=== PATIENT | female | born 1955 | race Caucasian/White ===

== ENCOUNTER 2022-11-11 10:13 | Outpatient (OUT) | payer OTHER, SELFPAY ==
--- NOTE | 2022-11-11 10:16 | FL_ITS ---
[address] [address] Patient Name: BEHZAD ENRIQUEZ MRN: [id number] date: 1955 Sex: F Assigned Patient Location: [place] Current Patient Location: [place] Accession/Order Number: [id number] Exam Date: 11/11/2022 10:25 Report Date: 11/11/2022 13:41 At the request of: MAKEDA OSEI Procedure: FL small bowel follow through EXAMINATION: FL upper GI w air, FL small bowel follow through, FL cineradiography HISTORY: Small bowel obstruction K56.609 , epigastric pain, left upper quadrant pain, lower abdominal cramping, history of abdominal adhesions COMPARISON: No relevant comparison available. TECHNIQUE: Upper GI and small bowel series was performed in the usual manner. Standard level fluoroscopic mode of operation utilized. FINDINGS: ESOPHAGUS: Mild gastroesophageal reflux. Mild narrowing of the gastroesophageal valve, likely secondary to recent hernia repair. No visible obstruction, dilatation, or hernia. STOMACH: No obstruction, mass, or ulceration. Normal motility. DUODENUM: No ulceration or diverticulum. JEJUNUM: Normal motility. No obstruction or visible lesion. ILEUM: Normal motility. No obstruction or visible lesion. OTHER: Negative. IMPRESSION: 1. Mild gastroesophageal reflux without esophageal stricture or mucosal irregularity. 2. Prior hernia repair suspected to be a gastric wrap, which also would account for mild narrowing at the gastroesophageal junction. 3. Unremarkable duodenum, jejunum, and ileum. Electronically authenticated by: DANIEL FINNEY Date: 11/11/2022 13:41
--- NOTE | 2022-11-11 10:18 | FL_ITS ---
[address] [address] Patient Name: BEHZAD ENRIQUEZ MRN: [id number] date: 1955 Sex: F Assigned Patient Location: [place] Current Patient Location: [place] Accession/Order Number: [id number] Exam Date: 11/11/2022 10:25 Report Date: 11/11/2022 13:41 At the request of: MAKEDA OSEI Procedure: FL upper GI w air EXAMINATION: FL upper GI w air, FL small bowel follow through, FL cineradiography HISTORY: Small bowel obstruction K56.609 , epigastric pain, left upper quadrant pain, lower abdominal cramping, history of abdominal adhesions COMPARISON: No relevant comparison available. TECHNIQUE: Upper GI and small bowel series was performed in the usual manner. Standard level fluoroscopic mode of operation utilized. FINDINGS: ESOPHAGUS: Mild gastroesophageal reflux. Mild narrowing of the gastroesophageal valve, likely secondary to recent hernia repair. No visible obstruction, dilatation, or hernia. STOMACH: No obstruction, mass, or ulceration. Normal motility. DUODENUM: No ulceration or diverticulum. JEJUNUM: Normal motility. No obstruction or visible lesion. ILEUM: Normal motility. No obstruction or visible lesion. OTHER: Negative. IMPRESSION: 1. Mild gastroesophageal reflux without esophageal stricture or mucosal irregularity. 2. Prior hernia repair suspected to be a gastric wrap, which also would account for mild narrowing at the gastroesophageal junction. 3. Unremarkable duodenum, jejunum, and ileum. Electronically authenticated by: DANIEL FINNEY Date: 11/11/2022 13:41
== END 2022-11-11 10:14 | disposition home or self-care (01) ==
PROVIDERS: PCP Family Medicine; Visit Provider Family Medicine
DX: Z87.19 Personal history of other diseases of the digestive system (principal); K21.9 Gastro-esophageal reflux disease without esophagitis
CPT/HCPCS: 74246; 74248; 76120

== ENCOUNTER 2022-11-26 13:04 | Outpatient (RCR) | payer OTHER, SELFPAY | END 2022-12-08 16:35 | disposition home or self-care (01) | LOC: PT 13:04 | PROVIDERS: PCP Family Medicine; Visit Provider Family Medicine | DX: R42 Dizziness and giddiness (principal); R26.81 Unsteadiness on feet; H81.399 Other peripheral vertigo, unspecified ear | CPT/HCPCS: 97140; 97161 ==

== ENCOUNTER 2023-01-17 13:57 | Outpatient (OUT) | payer OTHER, SELFPAY ==
--- NOTE | 2023-01-17 13:59 | MM_ITS ---
Patient: BEHZAD ENRIQUEZ Exam Date: 01/17/2023 : 1955 Gender:F Ordering : DR. SOFIA JOHNS D.O. Admission #: [id number] Family : DR Pankaj Arevalo . Order #: [id number] CLICK HERE TO VIEW EXAM RADIOLOGY REPORT PROCEDURE: MM DIAGNOSTIC MAMMO UNILAT RT, 01/17/2023, 13:51 US BREAST RT LIMITED, 01/17/2023, 14:18 COMPARISON: MG MAMM SCREEN 3D KATERINA CAD, 08/02/2022. INDICATIONS: Breast mass N63.10, Breast pain N64.4 Calculator Name NCI Breast Cancer Risk Assessment Tool 5 Year Breast Cancer Risk 2.30% Lifetime Breast Cancer Risk 8.00% Personal Breast Cancer No Personal Ovarian Cancer No Treatments None Family Cancers None LOCATION: [facility] BREAST COMPOSITION: Heterogeneously dense,which may obscure small masses. FINDINGS: DIAGNOSTIC CATEGORY 4--SUSPICIOUS FOR MALIGNANCY. FINDING DOES NOT EXHIBIT CLASSIC FINDINGS OF BREAST CANCER: Identified in the right breast corresponding to the patient's triangle palpable marker is a bilobed mass best seen on the CC projection with a smaller component measuring 7 mm and a larger component measuring 8.6 mm. Ultrasound demonstrates a bilobed hypoechogenic mass with acoustic shadowing. There is a smaller component measuring 5.9 mm connected to a larger deeper 8.3 mm lesion with a connecting stalk measuring 2.3 mm. This lesion is indeterminate. Ultrasound-guided core biopsy is recommended for further evaluation RECOMMENDATIONS: ULTRASOUND-GUIDED CORE BIOPSY: RIGHT BREAST PLEASE NOTE: A NORMAL MAMMOGRAM DOES NOT EXCLUDE THE POSSIBILITY OF BREAST CANCER. A CLINICALLY SUSPICIOUS PALPABLE LUMP SHOULD BE BIOPSIED. Dictated by: Bernardo Meyer MD on 01/17/2023 at 14:42 Approved by: Brenardo Meyer MD on 01/17/2023 at 14:47
--- NOTE | 2023-01-17 14:03 | US_ITS ---
Patient: BEHZAD ENRIQUEZ Exam Date: 01/17/2023 : 1955 Gender:F Ordering : DR. SOFIA JOHNS D.O. Admission #: [id number] Family : DR Pankaj Arevalo . Order #: [id number] CLICK HERE TO VIEW EXAM RADIOLOGY REPORT PROCEDURE: MM DIAGNOSTIC MAMMO UNILAT RT, 01/17/2023, 13:51 US BREAST RT LIMITED, 01/17/2023, 14:18 COMPARISON: MG MAMM SCREEN 3D KATERINA CAD, 08/02/2022. INDICATIONS: Breast mass N63.10, Breast pain N64.4 Calculator Name NCI Breast Cancer Risk Assessment Tool 5 Year Breast Cancer Risk 2.30% Lifetime Breast Cancer Risk 8.00% Personal Breast Cancer No Personal Ovarian Cancer No Treatments None Family Cancers None LOCATION: [facility] BREAST COMPOSITION: Heterogeneously dense,which may obscure small masses. FINDINGS: DIAGNOSTIC CATEGORY 4--SUSPICIOUS FOR MALIGNANCY. FINDING DOES NOT EXHIBIT CLASSIC FINDINGS OF BREAST CANCER: Identified in the right breast corresponding to the patient's triangle palpable marker is a bilobed mass best seen on the CC projection with a smaller component measuring 7 mm and a larger component measuring 8.6 mm. Ultrasound demonstrates a bilobed hypoechogenic mass with acoustic shadowing. There is a smaller component measuring 5.9 mm connected to a larger deeper 8.3 mm lesion with a connecting stalk measuring 2.3 mm. This lesion is indeterminate. Ultrasound-guided core biopsy is recommended for further evaluation RECOMMENDATIONS: ULTRASOUND-GUIDED CORE BIOPSY: RIGHT BREAST PLEASE NOTE: A NORMAL MAMMOGRAM DOES NOT EXCLUDE THE POSSIBILITY OF BREAST CANCER. A CLINICALLY SUSPICIOUS PALPABLE LUMP SHOULD BE BIOPSIED. Dictated by: Bernardo Meyer MD on 01/17/2023 at 14:42 Approved by: Bernardo Meyer MD on 01/17/2023 at 14:47
== END 2023-01-17 13:58 | disposition home or self-care (01) ==
LOC: MAMMO 13:57
PROVIDERS: PCP Family Medicine; Visit Provider Obstetrics & Gynecology
DX: N63.10 Unspecified lump in the right breast, unspecified quadrant (principal); N64.4 Mastodynia
CPT/HCPCS: 76642; 77065

== ENCOUNTER 2023-01-20 12:21 | Day surgery (SDC) | payer OTHER, SELFPAY ==
--- NOTE | 2023-01-20 12:30 | US_ITS ---
[address] [address] Patient Name: BEHZAD ENRIQUEZ MRN: [id number] date: 1955 Sex: F Assigned Patient Location: [place] Current Patient Location: Accession/Order Number: [id number] Exam Date: 01/20/2023 12:30 Report Date: 01/20/2023 14:24 At the request of: NON-STAFF PHYSICIAN Procedure: US breast vac bx w/ clip RT EXAM: US breast vac bx w/ clip RT HISTORY: Abnormal mammogram R92.8, Right breast mass N63.10 COMPARISON: Ultrasound breast right 01/17/2023, diagnostic mammography right 11/17/2022 TECHNIQUE: After obtaining informed consent, ultrasound-guided biopsy was performed in the usual sterile manner. The location of the biopsy was then marked as indicated below. FINDINGS: Specimen #, Location: 8 core samples; right breast 12:00 2 adjacent similar-appearing hypoechoic lesions, 9 x 8 x 7 mm and 5 x 5 x 5 mm respectively. Biopsy Needle: 13 gauge vacuum core biopsy needle. Marker(s): A single metallic marker was placed in the appropriate targeted location. Medication: Buffered 1% Lidocaine with epinephrine administered locally. Complications: None. Pathology: Pending. US/US breast vac bx w/ clip RT IMPRESSION: 1. Uneventful ultrasound-guided breast biopsy. 2. Pathology results are pending. An addendum to this report will be provided after pathology results are available. Electronically authenticated by: DANIEL FINNEY Date: 01/20/2023 14:24
--- NOTE | 2023-01-20 12:33 | MM_ITS ---
Patient: BEHZAD ENRIQUEZ Exam Date: 01/20/2023 : 1955 Gender:F Ordering : Non-Staff Physician Admission #: [id number] Family : DR MAKEDA OSEI . Order #: [id number] CLICK HERE TO VIEW EXAM RADIOLOGY REPORT PROCEDURE: MM POST BIOPSY RT COMPARISON: MM DIAGNOSTIC MAMMO UNILAT RT, 01/17/2023. MG MAMM SCREEN 3D KATERINA CAD, 08/02/2022. MG MAMM SCREEN 3D KATERINA CAD, 07/30/2021. MG MAMM LT DIAG W CAD, 06/09/2020. INDICATIONS: Abnormal mammogram R92.8, Right breast mass N63.10 BREAST COMPOSITION: FINDINGS: BIOPSY MARKER: A metallic marker has been placed in the targeted location within the upper-outer quadrant of the right breast. BREAST FINDINGS: Expected post biopsy findings. RECOMMENDATIONS: Dictated by: Gary Goodson M.D. on 01/20/2023 at 14:43 Approved by: Gary Goodson M.D. on 01/20/2023 at 14:46
[2023-01-20] MEDS: LIDOCAINE HCL 10 ML, SODIUM BICARBONATE 1 MEQ INJ (13:20)
[2023-01-20] MEDS: LIDOCAINE HCL/EPINEPHRINE 10 ML, SODIUM BICARBONATE 1 MEQ INJ (13:20)
[2023-01-20 14:14] VITALS: BMI 29.9
== END 2023-01-20 14:00 | disposition home or self-care (01) ==
LOC: US 12:22
PROVIDERS: Radiology Diagnostic Radiology; PCP Family Medicine
DX: C50.811 Malignant neoplasm of overlapping sites of right female breast (principal)
CPT/HCPCS: 19083; 77065; 88305; 88342; 88360

== ENCOUNTER 2023-02-24 | Outpatient (OUT) | payer OTHER, SELFPAY ==
[2023-02-25 12:06] LABS: Estimated Average Glucose 263 mg/dL; Glycohemoglobin A1C 10.8 % (4.5-6.2)
== END 2023-02-24 00:01 | disposition home or self-care (01) ==
LOC: LAB 02-25 11:46
PROVIDERS: PCP Family Medicine; Visit Provider Family Medicine
DX: R73.9 Hyperglycemia, unspecified (principal)
CPT/HCPCS: 36415; 83036

== ENCOUNTER 2023-02-24 09:01 | Outpatient (OUT) | payer OTHER, SELFPAY ==
--- NOTE | 2023-02-24 09:47 | CA_ITS ---
Patient: BEHZAD ENRIQUEZ Exam Date: 02/24/2023 : 1955 Gender:F Ordering : DR. CATRACHITO SINGH M.D. Admission #: [id number] Family : Order #: [id number] CLICK HERE TO VIEW EXAM ECHOCARDIOGRAM REPORTs PROCEDURE: CA ECHO DOPPLER COMPLETE INDICATIONS: CARDIOTOXICITY COMPARISON: None. DESCRIPTION: COMPLETE ECHOCARDIOGRAM Real-time transthoracic echocardiography with 2D, M-mode, spectral and color flow Doppler performed. QUALITY: Technical quality was good. LEFT VENTRICLE: Normal chamber size. Thickened septal wall. LV EF: Global left ventricular systolic function is hyperdynamic; visually estimated ejection fraction is 65 to 70%. DIASTOLIC: Normal diastolic function. ATRIAL SEPTUM: Visually appears intact. LEFT ATRIUM: Normal chamber size. RIGHT ATRIUM: Normal chamber size. RIGHT VENTRICLE: Poorly seen; appears enlarged with reduced systolic function. TRICUSPID VALVE: Normal mobility and thickness. No stenosis with no regurgitation. Unable to assess right-sided pressures due to lack of measurable tricuspid regurgitation. MITRAL VALVE: Normal mobility and thickness. No evidence of mitral valve stenosis. Mild mitral annular calcification. No mitral regurgitation. AORTIC VALVE: Normal trileaflet appearance. No visible sclerosis. Normal leaflet mobility. No evidence of aortic valve stenosis. No aortic regurgitation. AORTIC ROOT: Normal diameter and appearance. PULMONIC VALVE: Normal thickness and mobility. No stenosis. No regurgitation. PERICARDIUM: No evidence of pericardial effusion. IVC: Collapses with inspirations. IVC is normal in size. STRAIN: Global longitudinal strain is calculated at -11.6% to -16.4%. No prior data to compare. CONCLUSION: 1. Global left ventricular systolic function is hyperdynamic; visually estimated ejection fraction is 65 to 70% 2. Normal diastolic function 3. The right ventricle is poorly seen; it appears enlarged with reduced systolic function 4. No significant valvular abnormalities 5. Global longitudinal strain is reported at -11.6% to -16.4% Adult Echocardiography Procedure Report Left Ventricle LVEDD (3.7 - 5.6 cm): 3.89 cm LVESD (2.2 - 4.0 cm): 2.37 cm LVIVS thickness (0.6 - 1.2 cm): 1.17 cm LVPW thickness (0.5 - 1.0 cm): 0.75 cm e': 0.15 m/s E - e': 4.95 LVOT Max Gradient: 4.42 mm[Hg] LVOT Area (cm2): 1.05 m/s Peak Velocity (LVOT): 1.05 m/s LVOT Diameter 2.17 cm Left Atrium LA Volume Index (2D A2C): 25.74 ml/m2 Left Atrium Systolic Dimension: 3.13 cm Mitral Valve MV E to A Ratio: 0.82 Mitral Valve A-Wave Peak Velocity: 0.89 m/s Mitral Valve E-Wave Peak Velocity: 0.72 m/s Right Ventricle Aorta AO Root Diam: 3.38 cm Ascending Ao Diam: 2.86 cm Aortic Valve AoV Area (Peak Dre): 2.98 cm2, 2.98 cm2 Peak Velocity(Antegrade Flow): 1.31 m/s Peak Gradient(Antegrade Flow): 6.84 mm[Hg] Mean Velocity(Antegrade Flow): 0.93 m/s Mean Gradient(Antegrade Flow): 3.92 mm[Hg] Velocity Time Integral: 27.73 cm Tricuspid Valve Pulmonic Valve Peak Velocity: 0.94 m/s Peak Gradient: 3.52 mm[Hg], 3.59 mm[Hg] Right Atrium Right Atrium Systolic Pressure: 48.98 ml, 48.98 ml Dictated by: Vilma Sanchez M.D. on 02/25/2023 at 16:38 Approved by: Vilma Sanchez M.D. on 02/25/2023 at 16:45
[2023-02-24 09:58] LABS: Basophils Percent Auto 0.4 % (0.2-2.0); Eosinophils Absolute Auto 0.1 10^3/uL (0.0-0.7); Hematocrit 37.7 % (36.0-48.0); Hemoglobin 12.6 g/dL (12.0-16.0); Immature Granulocytes Abs Auto 0.05 10^3/uL (0.00-0.03); Immature Granulocytes Pct Auto 0.7 % (0.0-0.5); Lymphocytes Absolute Auto 1.9 10^3/uL (1.2-3.8); Lymphocytes Percent Auto 27.5 % (20.5-60.0); Mean Corpuscular HGB Conc 33.4 g/dL (29.9-35.2); Mean Corpuscular Volume 89.8 fL (81.0-99.0); Monocytes Absolute Auto 0.5 10^3/uL (0.3-0.8); Monocytes Percent Auto 6.7 % (1.7-12.0); Neutrophils Absolute Auto 4.4 10^3/uL (1.4-6.5); Neutrophils Percent Auto 63.7 % (43.0-75.0); Platelet Count 285 10^3/uL (150-450); Red Cell Distribution Width 12.5 % (11.0-15.0); White Blood Count 6.9 10^3/uL (4.0-11.0)
[2023-02-24 10:41] LABS: Alanine Aminotransferase 69 U/L (14-59); Albumin Globulin Ratio 0.9; Albumin Level 3.4 g/dL (3.4-5.0); Alkaline Phosphatase 129 U/L (46-116); Anion Gap 10.4; Aspartate Amino Transferase 35 U/L (15-37); BUN Creatinine Ratio 18.2; Bilirubin Total 0.2 mg/dL (0.2-1.0); Calcium 9.3 mg/dL (8.5-10.1); Carbon Dioxide 28.7 mmol/L (21.0-32.0); Chloride 99 mmol/L (98-107); Estimated GFR (African America >60 (>=60); Estimated GFR (Non-African Ame >60 (>=60); Globulin 3.8 g/dL; Glucose 340 mg/dL (74-106); Potassium 4.1 mmol/L (3.5-5.1); Sodium 134 mmol/L (136-145); Total Protein 7.2 g/dL (6.4-8.2)
== END 2023-02-24 09:02 | disposition home or self-care (01) ==
LOC: CARD 09:04
PROVIDERS: PCP Family Medicine; Visit Provider Internal Medicine Hematology & Oncology
DX: C50.411 Malignant neoplasm of upper-outer quadrant of right female breast (principal); Z17.0 Estrogen receptor positive status [ER+]; R73.9 Hyperglycemia, unspecified
CPT/HCPCS: 36415; 80053; 85025; 93306; 93356

== ENCOUNTER 2023-03-30 13:58 | Outpatient (OUT) | payer OTHER, SELFPAY ==
--- OUTSIDE RECORDS SUMMARY | 2023-05-10 15:26 | XMS_ITS | CCD ---
Author Name Unknown Address [address] [place] [address] Organization [facility] Care Team Providers Care Cardiovascular Specialist Name Role Phone AL-CHALABI, AHMED Unavailable Unavailable AL-CHALABI, AHMED Unavailable Unavailable PANKAJ OSEI Unavailable Unavailable PANKAJ OSEI Unavailable Unavailable DENI, VILMA H. Unavailable Unavailable DENI, VILMA H. Unavailable Unavailable PANKAJ OSEI Unavailable Unavailable DENI, VILMA H. Unavailable Unavailable PANKAJ OSEI Unavailable Unavailable Pankaj sOei MD Unavailable Pankaj Osei MD Primary Care Provider Pankaj Osei MD Unavailable Pankaj Osei MD Primary Care Provider Pankaj Osei MD Unavailable Pankaj Osei MD Primary Care Provider Pankaj Osei MD Unavailable Pankaj Osei MD Primary Care Provider JAYNA ANDERSON Attending Unavailable LAURA MEYERS Referring Unavailable Pankaj Osei MD Unavailable Pankaj Osei MD Primary Care Provider Pankaj Osei MD Unavailable Pankaj Osei MD Primary Care Provider Jt BRASWELL Attending Unavailable NAT, SOFIA Admitting Unavailable YAMILE JOHNSA Attending Unavailable DR PANKAJ DARNELL Primary Care Unavailable CLIVE, DR UGO Springer Consulting Unavailable SOFIA JOHNS Consulting Unavailable MISC, DR MCMULLEN Admitting Unavailable MISC, DR MCMULLEN Attending Unavailable DR PANKAJ DARNELL Primary Care Unavailable MISC, DR MCMULLEN Consulting Unavailable SHARMIN, DR DANIEL Myers Consulting Unavailable HOY ., DR ASHFORD Admitting Unavailable HOY ., DR ASHFORD Attending Unavailable HOY ., DR ASHFORD Primary Care Unavailable HOY ., DR ASHFORD Consulting Unavailable MD Pankaj Osei M Primary Care Provider [phone] MD Candido Mary Attending Provider Paulo Singh MD Unavailable [phone] [employer]aya RESIDENTIAL SOLAR CONSULTANT.DISPENSING AND MEASURING OPTICIAN, Adair Unavailable Ad RN, Asia Unavailable ABHYANKAR, PAULO Referring Unavailable HOY, PANKAJ M Primary Care Unavailable Hoy, Pankaj M Primary Care Unavailable Candido Mary Attending Unavailable Candido Mary Admitting Unavailable CHARISSA RAI Attending Unavailable Tessy Deleon Unavailable Unavailable HOY, PANKAJ M Primary Care Unavailable ROSALBA REYNOSO Referring Unavailable HOY, PANKAJ M Primary Care Unavailable PROVIDER, UNKNOWN Referring Unavailable ABHYANKAR, PAULO Referring Unavailable HOY, PANKAJ M Primary Care Unavailable ABHYANKAR, PAULO Referring Unavailable HOY, PANKAJ M Primary Care Unavailable ABHYANKAR, PAULO Referring Unavailable ABHYANKAR, PAULO Attending Unavailable HOY, PANKAJ M Primary Care Unavailable HOY, PANKAJ M Primary Care Unavailable HOY, PANKAJ M Primary Care Unavailable ABHYANKAR, PAULO Referring Unavailable CHARO NAPIER Attending Unavailable BRENT CALVILLO Referring Unavailable HOY, PANKAJ M Primary Care Unavailable CECELIA MALHOTRA Referring Unavai berenicele ABHYANKAR, PAULO Attending Unavailable HOY, PANKAJ M Primary Care Unavailable HOY, PANKAJ M Primary Care Unavailable ABHYANKAR, PAULO Referring Unavailable YECENIA TORRES Attending Unavailabl e HOY, PANKAJ M Primary Care Unavailable HOY, PANKAJ M Referring Unavailable ABHYANKAR, PAUOL Referring Unavailable ABHYANKAR, PAULO Attending Unavailable HOY, PANKAJ M Primary Care Unavailable ABHYANKAR, PAULO Referring Unavailable HOY, PANKAJ M Primary Care Unavailable HOY, PANKAJ M Primary Care Unavailable ABHYANKAR, PAULO Referring Unavailable HOY, PANKAJ M Primary Care Unavailable ABHYANKAR, PAULO Referring Unavailable HOY, PANKAJ M Primary Care Unavailable ROSALBA REYNOSO Attending Unavailable HOY, PANKAJ M Primary Care Unavailable ABHYANKAR, PAULO Referring Unavailable HOY, PANKJA M Primary Care Unavailable HOY, PANKAJ M Primary Care Unavailable ABHYANKAR, PAULO Attending Unavailable ABHYANKAR, PAULO Referring Unavailable HOY, PANKAJ M Primary Care Unavailable ABHYANKAR, PAULO Referring Unavailable SUMAN MOREL Referring Unavailable HOY, PANKAJ M Primary Care Unavailable ABHYANKAR, PAULO Referring Unavailable HOY, PANKAJ M Primary Care Unavailable ADAIR ELAINE Attending Unavailable ABHYANKAR, PAULO Referring Unavailable HOY, PANKAJ M Primary Care Unavailable ABHYANKAR, PAULO Referring Unavailable HOY, PANKAJ M Primary Care Unavailable HOY, PANKAJ M Primary Care Unavailable ABHYANKAR, PAULO Referring Unavailable YECENIA TORRES Attending Unavailabl e ABHYANKAR, PAULO Referring Unavailable HOY, PANKAJ M Primary Care Unavailable ABHYANKAR, PAULO Referring Unavailable HOY, PANKAJ M Primary Care Unavailable HOY, PANKAJ M Primary Care Unavailable ABHYANKAR, PAULO Referring Unavailable Allergies Allergy Classification Reported Allergen(s) Allergy Type Date of Onset Reaction(s) Facility (8 sources) morphine; Translations: [MORPHINE] Drug Allergy 02-21-20 10 Migraine [facility] Repository (5 sources) traMADol; Translations: [TRAMADOL] Drug Allergy 09-06-19 14 AOF [facility] Repository (20 sources) Acetaminophen / Chlorpheniramine / Phenylephrine; Translations: [BHJ-LACHCDRZF-HAVO AMINOPHEN] Drug Allergy 09-09-19 18 Itching [facility] (20 sources) Dextromethorphan / guaiFENesin / Pseudoephedrine; Translations: [PSEUDOEPHEDRINE-DM -GUAIFENESIN] Drug Allergy 04-02-20 19 Intolerance [facility] (20 sources) diazePAM; Translations: [DIAZEPAM] Drug Allergy 04-07-20 20 Other: See Comments [facility] (20 sources) diphenhydrAMINE; Translations: [DIPHENHYDRAMINE] Drug Allergy 11-05-19 20 Intolerance [facility] (20 sources) HYDROcodone; Translations: [HYDROCODONE] Drug Allergy 02-11-20 18 Other: See Comments, GI Upset [facility] (20 sources) levoFLOXacin; Translations: [LEVOFLOXACIN] Drug Allergy 11-05-19 Intolerance [facility] (20 sources) Morphine Drug Allergy 07-05-19 12 Unknown, GI Upset, Vomiting, Other: See Comments [facility] (20 sources) Nalbuphine; Translations: [NALBUPHINE] Drug Allergy 11-05-19 Rash [facility] (20 sources) oxyCODONE; Translations: [OXYCODONE] Drug Allergy 04-18-20 18 GI Upset [facility] (20 sources) Progesterone; Translations: [PROGESTERONE] Drug Allergy 03-14-20 18 Other: See Comments, GI Upset [facility] (20 sources) traMADol Drug Allergy 09-06-19 14 Itching, Unknown [facility] (20 sources) 12 Hour Cold Capsule; Translations: [12 HOUR COLD CAPSULE] Drug Allergy 11-05-19 Intolerance [facility] (20 sources) Adhesive agent; Translations: [ADHESIVE] Propensity to adverse reactions to drug (disorder) 03-01-20 Other: See Comments [facility] (20 sources) Chlorpheniramine / Pseudoephedrine; Translations: [ALLER-CHLOR DECONGESTANT] Drug Allergy 03-01-20 Unknown [facility] Repository (20 sources) Hmg-Coa Reductase Inhibitors (Statins); Translations: [OOSOCCG-MNS-WDC REDUCTASE INHIBITORS] Propensity to adverse reactions to drug (disorder) 08-25-19 Other: See Comments [facility] Rep[facility] (1 source) diphenhydrAMINE; Translations: [Benadryl] Drug Allergy [facility] Repository (1 source) Hmg-Coa Reductase Inhibitors (Statins); Translations: [statins] Propensity to adverse reactions (disorder) [facility] Rep[facility] (1 source) levoFLOXacin; Translations: [Levaquin] Drug Allergy [facility] Repository (1 source) Nalbuphine; Translations: [Nubain] Drug Allergy [facility] Rep[facility] (1 source) Decongestant; Translations: [Decongestant] Propensity to adverse reactions (disorder) [facility] Repository (1 source) levoFLOXacin Drug Allergy 12-16-19 19 [facility] Repository (1 source) oxyCODONE Drug Allergy 12-03-19 20 [facility] (1 source) traMADol Drug Allergy 12-03-19 20 [facility] (20 sources) Decongest Multi-Action; Translations: [DECONGEST MULTI-ACTION] Drug allergy (disorder) 12-03-19 Other: See Comments [facility] Rep[facility] (20 sources) Chlorpheniramine / Pseudoephedrine; Translations: [CHLORPHENIRAMINE-P SEUDOEPHED] Drug Allergy 02-22-20 Unknown [facility] (20 sources) Promethazine; Translations: [PROMETHAZINE] Drug Allergy 01-21-20 Unknown [facility] (20 sources) Pseudoephedrine; Translations: [PSEUDOEPHEDRINE] Drug Allergy 04-02-20 Other: See Comments [facility] (1 source) Morphine Drug Allergy 03-03-20 [facility] Repository Medications Current Medications Medication Drug Class(es) Dates Sig (Normalized) Sig (Original) levothyroxine sodium 0.05 mg oral tablet (20 sources) l-Thyroxine Start: 03-03-2023 take 0.05 ug by mouth once daily Levothyroxine Active 0.05 MCG PO Daily March 03, 2023 12:00am Start: 06-01-2021 levothyroxine (SYNTHROID) 50 mcg tablet meclizine hydrochloride 25 mg oral tablet (20 sources) Antiemetic Start: 03-03-2023 take 25 mg by mouth once daily Meclizine Active 25 MG PO Daily March 03, 2023 12:00am take 1-2 tablets by mouth four times daily as needed for dizziness meclizine (ANTIVERT) 25 mg tab TAKE 1-2 TABLETS BY MOUTH FOUR TIMES A DAY NEEDED FOR DIZZINESS 0 Active Comment on above: TAKE 1-2 TABLETS BY MOUTH FOUR TIMES A DAY NEEDED FOR DIZZINESS simvastatin 10 mg oral tablet (20 sources) HMG-CoA Reductase Inhibitor Start: 03-03-2023 take 5 mg by mouth once daily Simvastatin Active 5 MG PO Daily March 03, 2023 12:00am Start: 04-12-2022 take 0.5 tablet by m outh once daily simvastatin (ZOCOR) 10 mg tablet TAKE ONE-HALF TABLET BY MOUTH EVERY NIGHT 0 04/12/2022 Active Comment on above: TAKE ONE-HALF TABLET BY MOUTH EVERY NIGHT Completed/Discontinued Medications Medication Drug Class(es) Dates Sig (Normalized) Sig (Original) acetaminophen 500 mg oral tablet (2 sources) Start: 04-30-2021 End: 09-25-2021 take 2 tablets by mouth every six hours as needed acetaminophen (TYLENOL) 500 mg tablet Take 2 tablets by mouth every 6 hours as needed for pain. 0 04/30/2021 09/25/2021 Discontinued (Course of therapy completed) Comment on above: [facility] hours as needed for pain. acetaminophen 300 mg / HYDROcodone bitartrate 10 mg oral tablet (20 sources) Opioid Agonist take 1 tablet by mouth every six hours HYDROcodone-Acetaminophen 10-300 mg tab Take 1 tablet every 6 hours by oral route. 0 Active Comment on above: Take 1 tablet every 6 hours by oral route. aspirin/acetaminophen/caffei ne (EXCEDRIN MIGRAINE ORAL) (20 sources) aspirin/acetamin ophen/caffeine (EXCEDRIN MIGRAINE ORAL) Excedrin Migraine as needed 0 Active Comment on above: Excedrin Migraine as needed onabotulinumtoxina 200 unt injection (20 sources) Acetylcholine Release Inhibitor Start: 09-25-2021 End: 09-25-2021 onabotulinum toxin type A 200 Units injection (BOTOX) Start: 09-03-2021 inject 200 [IU] by intramuscular injection once, then inject 200 [IU] by intramuscular injection every three months onabotulinum toxin type A (BOTOX) 100 unit solr Inject 200 Units intramuscularly one time only for 1 dose. Follow the PREEMPT protocol, administer 200 units every 3 months, indefinitely. 2 Each 0 09/03/2021 Active Start: 11-20-2020 onabotulinum t oxin type A 200 Units injection (BOTOX) End: 09-03-2021 onabotulinumtoxinA (BOTOX IN JECTION) Botox injection every 3 months for migraines 0 09/03/2021 Discontinued Comment on above: Botox injection every 3 months for migraines Inject 200 Units int ramuscularly one time only for 1 dose. Follow the PREEMPT protocol, administer 200 units every 3 months, indefinitely. diazePAM 2 mg oral tablet (20 sources) Benzodiazepine Start: 02-20-2015 diazePAM (YSABEL UM) 2 mg tablet as needed. 0 02/20/2015 Active Comment on above: as needed. dicyclomine hydrochloride 20 mg oral tablet (20 sources) Anticholinergic Start: 11-16-2022 dicyclomine (B ENTYL) 20 mg tablet q 8 HR. 0 11/16/2022 Active Comment on above: q 8 HR. eletriptan 40 mg oral tablet (20 sources) Serotonin-1b and Serotonin-1d Receptor Agonist Start: 11-06-2021 End: 01-26-2022 take 1 tablet by mouth every two hours, then take 2 tablets by mouth every twenty-four hours eletriptan (RELPAX) 40 mg tablet TAKE 1 TABLET BY MOUTH AT ONSET OF MODERATE TO SEVERE MIGRAINE. MAY REPEAT DOSE IN 2 HOURS. MAX OF 2 DOSES IN 24 HOURS, 2 DAYS A WEEK 24 tablet 1 01/26/2022 Active Start: 08-03-2021 eletriptan (RE LPAX) 40 mg tablet Take at onset of a moderate to severe migraine, if not completely gone in 2 hours you may repeat the dose x 1. Maximum of 2 doses in 24 hours, Maximum use of 2 days each week. 27 tablet 0 08/03/2021 Active Comment on above: Take at onset of a m oderate to severe migraine, if not completely gone in 2 hours you may repeat the dose x 1. Maximum of 2 doses in 24 hours, Maximum use of 2 days each week. TAKE 1 TABLET BY DINA TH AT ONSET OF MODERATE TO SEVERE MIGRAINE. MAY REPEAT DOSE IN 2 HOURS. MAX OF 2 DOSES IN 24 HOURS, 2 DAYS A WEEK enteric contrast (will be provided with radiology test) (1 source) Start: 02-21-2023 End: 02-22-2023 enteric contrast (will be provided with radiology test) Indications: Malignant neoplasm of upper-outer quadrant of right breast in female, estrogen receptor positive (HCC) For CT CHESTABD/PEL W IVCON Routine order Administer, As Directed One Time Only, via Oral, Rectal, both Oral and Rectal, Enteric Tube, Stoma or Indwelling Catheter, Enteric Contrast as designated per enteric contrast guidelines 1 Each 0 02/21/2023 02/22/2023 Comment on above: For CT CHESTABD/PEL W IVCON Routine order Administer, As Directed One Time Only, via Oral, Rectal, both Oral and Rectal, Enteric Tube, Stoma or Indwelling Catheter, Enteric Contrast as designated per enteric contrast guidelines 1 ml evolocumab 140 mg/ml auto-injector (19 sources) PCSK9 Inhibitor Start: 03-27-2019 evolocumab (RE PATHA SURECLICK) 140 mg/mL pen injector Repatha SureClick 140 mg/mL subcutaneous pen injector 0 03/27/2019 Active Comment on above: Repatha SureClick 14 0 mg/mL subcutaneous pen injector 1.5 ml fremanezumab-vfrm 150 mg/ml auto-injector (6 sources) Start: 01-08-2022 inject 1.5 mL by subcutaneous injection every month fremanezumab-vfrm (AJOVY AUTOINJECTOR) 225 mg/1.5 mL auto-injector Inject 1.5 mL subcutaneously once every month. Do not shake. 1 Pen 3 01/08/2022 Active Comment on above: Inject 1.5 mL subcut aneously once every month. Do not shake. 1 ml galcanezumab-gnlm 120 mg/ml auto-injector (12 sources) Start: 02-09-2022 inject 1 mL by subcutaneous injection every month galcanezumab-gnlm (EMGALITY PEN) 120 mg/mL pen Inject 1 mL subcutaneously once every month. Do not shake.starting the 2nd month. 1 Each 11 02/09/2022 Active Start: 02-09-2022 galcanezumab-g nlm 120 mg/mL subcutaneous pen injector (EMGALITY) Do not shake. For initial month, administer 2 subcutaneous injections, keep 2 inches away from umbilicus and each other. 2 Each 0 02/09/2022 Active Comment on above: Do not shake. For in itial month, administer 2 subcutaneous injections, keep 2 inches away from umbilicus and each other. Inject 1 mL subcutan eously once every month. Do not shake.starting the 2nd month. Garlic preparation (2 sources) Non-Standardized Food Allergenic Extract End: 09-25-2021 Garlic 1 mg cap garlic twice a day 0 09/25/2021 Discontinued (Course of therapy completed) Garlic 1 mg cap garlic twice a day 0 Active Comment on above: garlic twice a day hydrALAZINE hydrochloride 50 mg oral tablet (1 source) Arteriolar Vasodilator hydrALAZI NE (APRESOLINE) 50 mg tablet Take 50 mg by mouth. 0 Active Comment on above: Take 50 mg by mouth. hyoscyamine sulfate 0.125 mg sublingual tablet (20 sources) Start: 11-15-2022 take 1 tablet under the tongue every six hours as needed hyoscyamine sublingual (LEVSIN SL) 0.125 mg DISSOLVE 1 TABLET UNDER THE TONGUE EVERY 6 HOURS NEEDED 0 11/15/2022 Active End: 09-25-2021 take 1 tablet by mouth every four hours hyoscyamine (LEVSIN) 0.125 mg tablet Take 0.125 mg by mouth q 4 HR. 0 09/25/2021 Discontinued (Course of therapy completed) Comment on above: Take 0.125 mg by dina th q 4 HR. DISSOLVE 1 TABLET UN ROMINA THE TONGUE EVERY 6 HOURS NEEDED ibuprofen 600 mg oral tablet (20 sources) Nonsteroidal Anti-inflammatory Drug Start: 03-01-2019 ibuprofen (MOTRIN ) 600 mg tablet Take 400 mg by mouth at bedtime as needed. 0 03/01/2019 Active Comment on above: Take 400 mg by mouth at bedtime as needed. iv contrast (will be provide d with radiology test) (2 sources) Start: 02-21-2023 End: 02-22-2023 iv contrast (will be provide d with radiology test) Indications: Malignant neoplasm of upper-outer quadrant of right breast in female, estrogen receptor positive (HCC) MRI Breast KATERINA Inject, intravenously, once for 1 dose. No IV access, insert saline lock prior to the beginning of sedation, infusion, injection of imaging exam. Discontinue saline lock post exam. If Pt has a central line or IVAD, may access for administration according to line specific nursing protocol. Once exam is complete flush line and de-access according to line specific nursing protocol in the MR contrast administration guidelines link 1 Each 0 02/21/2023 02/22/2023 Start: 02-21-2023 End: 02-22-2023 iv contrast (will be provide d with radiology test) Indications: Malignant neoplasm of upper-outer quadrant of right breast in female, estrogen receptor positive (HCC) CT Chest ABD/PEL-Inject, intravenously, once for 1 dose.No IV access, insert saline lock prior to the beginning of sedation, infusion, injection of imaging exam. Discontinue saline lock post exam. If Pt. has a central line or IVAD, may access for administration according to line specific nursing protocol. Once exam is complete flush line and de-access according to line specific nursing protocol in the CT contrast administration guidelines link. 1 Each 0 02/21/2023 02/22/2023 Comment on above: MRI Breast KATERINA Injec t, intravenously, once for 1 dose. No IV access, insert saline lock prior to the beginning of sedation, infusion, injection of imaging exam. Discontinue saline lock post exam. If Pt has a central line or IVAD, may access for administration according to line specific nursing protocol. Once exam is complete flush line and de-access according to line specific nursing protocol in the MR contrast administration guidelines link CT Chest ABD/PEL-Inj ect, intravenously, once for 1 dose.No IV access, insert saline lock prior to the beginning of sedation, infusion, injection of imaging exam. Discontinue saline lock post exam. If Pt. has a central line or IVAD, may access for administration according to line specific nursing protocol. Once exam is complete flush line and de-access according to line specific nursing protocol in the CT contrast administration guidelines link. metFORMIN hydrochloride 500 mg oral tablet (12 sources) Biguanide Start: 03-25-2023 take 1 tablet by mouth every twelve hours metFORMIN (GLUCOPHAGE) 500 mg tablet Take 1 tablet by mouth every 12 hours. 0 03/25/2023 Active Comment on above: Take 1 tablet by dina th every 12 hours. OLANZapine 5 mg oral tablet (18 sources) Atypical Antipsychotic Start: 03-18-2023 take 1 tablet by mouth once daily at bedtime OLANZapine (ZYPREXA) 5 mg tablet Take 1 tablet by mouth daily at bedtime. 30 tablet 0 03/18/2023 Active Comment on above: Take 1 tablet by dina th daily at bedtime. omeprazole 40 mg delayed release oral capsule (2 sources) Proton Pump Inhibitor Start: 04-29-2020 End: 09-25-2021 take 1 capsule by mouth twice daily before mealtime omeprazole (PRILOSEC) 40 mg capsule Take 1 capsule by mouth twice daily before meals. 180 capsule 3 04/29/2020 09/25/2021 Discontinued (Course of therapy completed) Comment on above: Take 1 capsule by mo uth twice daily before meals. ondansetron 8 mg oral tablet (20 sources) Serotonin-3 Receptor Antagonist Start: 03-04-2023 take 1 tablet by mouth every eight hours as needed ondansetron (ZOFRAN) 8 mg tablet Take 1 tablet by mouth every 8 hours as needed for nausea/vomiting. 90 tablet 1 03/04/2023 Active Start: 02-20-2017 ondansetron or ally disintegrating (ZOFRAN ODT) 4 mg disintegrating tablet Comment on above: Take 1 tablet by dina th every 8 hours as needed for nausea/vomiting. pantoprazole 40 mg delayed release oral tablet (20 sources) Proton Pump Inhibitor Start: 08-30-[address] (PROTONIX) 40 mg tablet Take 40 mg by mouth. 0 08/30/2022 Active Comment on above: Take 40 mg by mouth. rimegepant 75 mg disintegrating oral tablet (6 sources) Start: 09-25-2021 take 1 tablet by mouth once daily as needed rimegepant (NURTEC ODT) 75 mg disintegrating tablet Take 1 tablet by mouth once daily as needed. 8 tablet 3 09/25/2021 Active Comment on above: Take 1 tablet by dina th once daily as needed. 72 hr scopolamine 0.0139 mg/hr transdermal system (20 sources) Anticholinergic Start: 02-20-2015 scopolamine (TRANSDERM-SCOP) patch 1.5 mg/72 hr (delivers 1 mg over 3 days) APPLY ONE PATCH ON THE SKIN EVERY 3 DAYS. REMOVE OLD PATCH 0 02/20/2015 Active Comment on above: APPLY ONE PATCH ON T HE SKIN EVERY 3 DAYS. REMOVE OLD PATCH sennosides (LAXATIVE ORAL) (15 sources) sennosides (LAXA TIVE ORAL) Take by mouth daily at bedtime. 0 Active Comment on above: Take by mouth daily at bedtime. triamcinolone acetonide 1 mg/ml topical cream (20 sources) Corticosteroid Start: 06-28-2022 triamcinolone acetonide (KENALOG) 0.1 % cream Apply to affected area. 0 06/28/2022 Active Comment on above: Apply to affected ar ea. Problems Active Problems Problem Classification Problem Date Documented Da te Episodic/Chronic Cancer of breast (20 sources) Malignant neoplasm of upper-outer quadrant of female breast; Translations: [Malignant neoplasm of upper-outer quadrant of right female breast] Onset: 02-21-2023 02-21-2023 Chronic Cardiac dysrhythmias (20 sources) Postural orthostatic tachycardia syndrome ; Translations: [Other specified cardiac arrhythmias] Onset: 10-24-2017 04-27-2021 Chronic Diabetes mellitus without complication (20 sources) Type 2 diabetes mellitus; Translations: [Type 2 diabetes mellitus without complications] Onset: 02-14-2017 04-27-2021 Chronic Diabetes mellitus without complication (10 sources) Hyperglycemia; Translations: [Hyperglycemia, unspecified] Onset: 04-29-2023 03-25-2023 Episodic Disorders of lipid metabolism (20 sources) Mixed hyperlipidemia; Translations: [Mixed hyperlipidemia] Onset: 07-05-2011 04-27-2021 Chronic Esophageal disorders (5 sources) Barretts esophagus with low grade dysplasia; Translations: [Day's esophagus with low grade dysplasia] Onset: 01-21-2022 Chronic Essential hypertension (20 sources) Essential hypertension; Translations: [Essential (primary) hypertension] Onset: 04-27-2021 04-27-2021 Chronic Headache; including migraine (20 sources) Migraine; Translations: [Migraine, unspecified, not intractable, without status migrainosus] Onset: 04-27-2021 04-27-2021 Chronic Nonmalignant breast conditions (2 sources) Breast problem; Translations: [Disorder of breast, unspecified] Onset: 03-10-2023 03-10-2023 Episodic Other gastrointestinal disorders (1 source) H/O: abdominal hernia; Translations: [Personal history of other diseases of the digestive system] Episodic Other nutritional; endocrine; and metabolic disorders (20 sources) Obese class I; Translations: [Obesity, unspecified] Onset: 04-30-2021 04-30-2021 Chronic Other screening for suspected conditions (not mental disorders or infectious disease) (8 sources) Encounter for screening mammogram for malignant neoplasm of breast; Translations: [Blood chemistry abnormal] Onset: 08-02-2022 Episodic Residual codes; unclassified (11 sources) Patient encounter status; Translations: [Immunotherapy] Onset: 04-29-2023 03-17-2023 Episodic Residual codes; unclassified (3 sources) Estrogen receptor positive status [ER+]; Translations: [Malignant neoplasm of upper-outer quadrant of right breast in female, estrogen receptor positive (HCC)] Onset: 02-21-2023 Episodic Residual codes; unclassified (1 source) Estrogen receptor negative status [ER-]; Translations: [Malignant neoplasm of breast in female, estrogen receptor negative, unspecified laterality, unspecified site of breast (HCC)] Onset: 04-12-2023 Episodic Spondylosis; intervertebral disc disorders; other back problems (1 source) 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; Translations: [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] Onset: 04-17-2018 Syncope (2 sources) Syncope and collapse; Translations: [Syncope and collapse] Onset: 03-01-2022 Episodic Thyroid disorders (12 sources) Thyroiditis; Translations: [Thyroiditis, unspecified] Onset: 03-17-2023 03-17-2023 Chronic Unclassified (1 source) Malignant neoplasm of unspecified site of right female breast; Translations: [Malignant neoplasm of unspecified site of right female breast] Onset: 03-03-2023 Unclassified (1 source) Immunotherapy; Translations: [Immunotherapy] Onset: 03-17-2023 Past or Other Problems Problem Classification Problem Date Documented Da te Episodic/Chronic Abdominal hernia (20 sources) Paraesophageal hernia; 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] Onset: 01-22-1996 02-26-2021 Episodic Abdominal pain (2 sources) Generalized abdominal pain; Translations: [Generalized abdominal pain] Onset: 10-15-2022 Episodic Nausea and vomiting (20 sources) Nausea; Translations: [Nausea] Onset: 04-30-2021 04-30-2021 Episodic Other gastrointestinal disorders (4 sources) Personal history of other diseases of the digestive system; Translations: [PERSONAL HX OTH DZ DIGESTIVE SYSTEM] Onset: 01-20-2022 Episodic Other liver diseases (4 sources) Abnormal levels of other serum enzymes; Translations: [ABNORMAL LEVELS OF OTHER SERUM ENZYMES] Onset: 12-13-2016 Episodic Results Test Name Value Interpretation Reference Range Facil ity CBC W Auto Differential pane l (Bld)on 05-06-2023 Basophils (Bld) [#/Vol] 0.03 10*3/uL Normal <0.11 [facility] Comment on above: Order Comment: Speci men Type: BLOOD SPECIMENOrdering Facility: [facility] Address: [address] [place] [address] Performed By: #### 5 7021-8 ####[facility] LABCLIA [id number] [place] [address] Basophils/100 WBC (Bld) 0.9 % Normal [facility] Comment on above: Order Comment: Speci men Type: BLOOD SPECIMENOrdering Facility: [facility] Address: [address] [place] [address] Performed By: #### 5 7021-8 ####[facility] LABCLIA [id number] [place] [address] Differential cell count method Nom (Bld) Auto Normal [facility] Comment on above: Order Comment: Speci men Type: BLOOD SPECIMENOrdering Facility: [facility] Address: [address] [place] [address] Performed By: #### 5 7021-8 ####[facility] LABCLIA [id number] [place] [address] Eosinophils (Bld) [#/Vol] 0.05 10*3/uL Normal <0.46 [facility] Comment on above: Order Comment: Speci men Type: BLOOD SPECIMENOrdering Facility: [facility] Address: [address] [place] [address] Performed By: #### 5 7021-8 ####[facility] LABCLIA [id number] [place] [address] Eosinophils/100 WBC (Bld) 1.5 % Normal [facility] Comment on above: Order Comment: Speci men Type: BLOOD SPECIMENOrdering Facility: [facility] Address: [address] [place] [address] Performed By: #### 5 7021-8 ####[facility] LABCLIA [id number] [place] [address] Erythrocyte distribution wid th (RBC) [Ratio] 16.4 % High 11.5-15.0 [facility] Comment on above: Order Comment: Speci men Type: BLOOD SPECIMENOrdering Facility: [facility] Address: [address] [place] [address] Performed By: #### 5 7021-8 ####[facility] LABCLIA [id number] [place] [address] Hematocrit (Bld) [Volume fraction] 32.3 % Low 3 6.0-46.0 [facility] Comment on above: Order Comment: Speci men Type: BLOOD SPECIMENOrdering Facility: [facility] Address: [address] [place] [address] Performed By: #### 5 7021-8 ####[facility] LABCLIA [id number] [place] [address] Hemoglobin (Bld) [Mass/Vol] 11.3 g/dL Low 11.5-15. 5 [facility] Comment on above: Order Comment: Speci men Type: BLOOD SPECIMENOrdering Facility: [facility] Address: [address] [place] [address] Performed By: #### 5 7021-8 ####[facility] LABCLIA [id number] [place] [address] Immature granulocytes (Bld) [#/Vol] 10*3/uL Normal <0.10 [facility] Comment on above: Order Comment: Speci men Type: BLOOD SPECIMENOrdering Facility: [facility] Address: [address] [place] [address] Performed By: #### 5 7021-8 ####[facility] LABCLIA [id number] [place] [address] Immature granulocytes/100 WBC (Bld) 0.0 % Normal [facility] Comment on above: Order Comment: Speci men Type: BLOOD SPECIMENOrdering Facility: [facility] Address: [address] [place] [address] Performed By: #### 5 7021-8 ####[facility] LABCLIA [id number] [place] [address] Lymphocytes (Bld) [#/Vol] 1.69 10*3/uL Normal 1.00-4.0 0 [facility] Comment on above: Order Comment: Speci men Type: BLOOD SPECIMENOrdering Facility: [facility] Address: [address] [place] [address] Performed By: #### 5 7021-8 ####[facility] LABCLIA [id number] [place] [address] Lymphocytes/100 WBC (Bld) 50.4 % Normal [facility] Comment on above: Order Comment: Speci men Type: BLOOD SPECIMENOrdering Facility: [facility] Address: [address] [place] [address] Performed By: #### 5 7021-8 ####[facility] LABCLIA [id number] [place] [address] MCH (RBC) [Entitic mass] 31.4 pg Normal 26.0-34.0 [facility] Comment on above: Order Comment: Speci men Type: BLOOD SPECIMENOrdering Facility: [facility] Address: [address] [place] [address] Performed By: #### 5 7021-8 ####[facility] LABCLIA [id number] [place] [address] MCHC (RBC) [Mass/Vol] 35.0 g/dL Normal 30.5-36.0 [facility] Comment on above: Order Comment: Speci men Type: BLOOD SPECIMENOrdering Facility: [facility] Address: [address] [place] [address] Performed By: #### 5 7021-8 ####[facility] LABCLIA [id number] [place] [address] MCV (RBC) [Entitic vol] 89.7 fL Normal 80.0-100.0 [facility] Comment on above: Order Comment: Speci men Type: BLOOD SPECIMENOrdering Facility: [facility] Address: [address] [place] [address] Performed By: #### 5 7021-8 ####[facility] LABCLIA [id number] [place] [address] Monocytes (Bld) [#/Vol] 0.34 10*3/uL Normal <0.87 [facility] Comment on above: Order Comment: Speci men Type: BLOOD SPECIMENOrdering Facility: [facility] Address: [address] [place] [address] Performed By: #### 5 7021-8 ####[facility] LABCLIA [id number] [place] [address] Monocytes/100 WBC (Bld) 10.1 % Normal [facility] Comment on above: Order Comment: Speci men Type: BLOOD SPECIMENOrdering Facility: [facility] Address: [address] [place] [address] Performed By: #### 5 7021-8 ####[facility] LABCLIA [id number] [place] [address] Neutrophils (Bld) [#/Vol] 1.24 10*3/uL Low 1.45-7.5 0 [facility] Comment on above: Order Comment: Speci men Type: BLOOD SPECIMENOrdering Facility: [facility] Address: [address] [place] [address] Performed By: #### 5 7021-8 ####[facility] LABCLIA [id number] [place] [address] Neutrophils/100 WBC (Bld) 37.1 % Normal [facility] Comment on above: Order Comment: Speci men Type: BLOOD SPECIMENOrdering Facility: [facility] Address: [address] [place] [address] Performed By: #### 5 7021-8 ####[facility] LABCLIA [id number] [place] [address] Nucleated RBC (Bld) [#/Vol] 10*3/uL Normal <0.01 [facility] Comment on above: Order Comment: Speci men Type: BLOOD SPECIMENOrdering Facility: [facility] Address: [address] [place] [address] Performed By: #### 5 7021-8 ####[facility] LABCLIA [id number] [place] [address] Nucleated RBC/100 WBC (Bld) [Ratio] 0.0 /100 WBC Normal [facility] Comment on above: Order Comment: Speci men Type: BLOOD SPECIMENOrdering Facility: [facility] Address: [address] [place] [address] Performed By: #### 5 7021-8 ####[facility] LABCLIA [id number] [place] [address] Platelet mean volume (Bld) [ Entitic vol] 8.8 fL Low 9.0-12.7 [facility] Comment on above: Order Comment: Speci men Type: BLOOD SPECIMENOrdering Facility: [facility] Address: [address] [place] [address] Performed By: #### 5 7021-8 ####[facility] LABCLIA [id number] [place] [address] Platelets (Bld) [#/Vol] 299 10*3/uL Normal 150-400 [facility] Comment on above: Order Comment: Speci men Type: BLOOD SPECIMENOrdering Facility: [facility] Address: [address] [place] [address] Performed By: #### 5 7021-8 ####[facility] LABCLIA [id number] [place] [address] RBC (Bld) [#/Vol] 3.60 10*6/uL Low 3.90-5.20 [facility] Comment on above: Order Comment: Speci men Type: BLOOD SPECIMENOrdering Facility: [facility] Address: [address] [place] [address] Performed By: #### 5 7021-8 ####[facility] LABCLIA [id number] [place] [address] WBC (Bld) [#/Vol] 3.35 10*3/uL Low 3.70-11.00 [facility] Comment on above: Order Comment: Speci men Type: BLOOD SPECIMENOrdering Facility: [facility] Address: [address] [place] [address] Performed By: #### 5 7021-8 ####[facility] LABCLIA [id number] [place] [address] Basophils (Bld) [#/Vol] 0.03 10*3/uL <0.11 k/uL [facility] Basophils/100 WBC (Bld) 0.9 % C [facility] Differential cell count meth od Nom (Bld) Auto [facility] Eosinophils (Bld) [#/Vol] 0.05 10*3/uL <0.46 k/ uL [facility] Eosinophils/100 WBC (Bld) 1.5 % [facility] Erythrocyte distribution wid th (RBC) [Ratio] 16.4 % High 11.5 - 15.0 % [facility] Hematocrit (Bld) [Volume fraction] 32.3 % Low 36.0 - 46.0 % [facility] Hemoglobin (Bld) [Mass/Vol] 11.3 g/dL Low 11.5 - 1 5.5 g/dL [facility] Immature granulocytes (Bld) [#/Vol] <0.10 k/uL [facility] Immature granulocytes/100 WB C (Bld) 0.0 % [facility] Lymphocytes (Bld) [#/Vol] 1.69 10*3/uL 1.00 - 4 .00 k/uL [facility] Lymphocytes/100 WBC (Bld) 50.4 % [facility] MCH (RBC) [Entitic mass] 31.4 pg 26.0 - 34.0 pg [facility] MCHC (RBC) [Mass/Vol] 35.0 g/dL 30.5 - 36.0 g/ dL [facility] MCV (RBC) [Entitic vol] 89.7 fL 80.0 - 100.0 fL [facility] Monocytes (Bld) [#/Vol] 0.34 10*3/uL <0.87 k/uL [facility] Monocytes/100 WBC (Bld) 10.1 % [facility] Neutrophils (Bld) [#/Vol] 1.24 10*3/uL Low 1.45 - 7 .50 k/uL [facility] Neutrophils/100 WBC (Bld) 37.1 % [facility] Nucleated RBC (Bld) [#/Vol] <0.01 k/ uL [facility] Nucleated RBC/100 WBC (Bld) [Ratio] 0.0 /100 WBC [facility] Platelet mean volume (Bld) [Entitic vol] 8.8 fL Low 9.0 - 12.7 fL [facility] Platelets (Bld) [#/Vol] 299 10*3/uL 150 - 400 k /uL [facility] RBC (Bld) [#/Vol] 3.60 10*6/uL Low 3.90 - 5.20 m/uL [facility] WBC (Bld) [#/Vol] 3.35 10*3/uL Low 3.70 - 11.00 k/u L [facility] Comprehensive metabolic 2000 panelon 05-06-2023 Albumin [Mass/Vol] 4.2 g/dL Normal 3.9-4.9 [facility] Comment on above: Order Comment: Speci men Type: BLOOD SPECIMENOrdering Facility: [facility] Address: [address] [place] [address] Performed By: #### 2 4323-8 ####[facility] LABCLIA [id number] [place] [address] ALP [Catalytic activity/Vol] 108 U/L Normal 34-123 [facility] Comment on above: Order Comment: Speci men Type: BLOOD SPECIMENOrdering Facility: [facility] Address: [address] [place] [address] Performed By: #### 2 4323-8 ####[facility] LABCLIA [id number] [place] [address] ALT [Catalytic activity/Vol] 30 U/L Normal 7-38 [facility] Comment on above: Order Comment: Speci men Type: BLOOD SPECIMENOrdering Facility: [facility] Address: [address] [place] [address] Performed By: #### 2 4323-8 ####[facility] LABCLIA [id number] [place] [address] Anion gap [Moles/Vol] 8 mmol/L Low 9-18 [facility] Comment on above: Order Comment: Speci men Type: BLOOD SPECIMENOrdering Facility: [facility] Address: [address] [place] [address] Performed By: #### 2 4323-8 ####[facility] LABCLIA [id number] [place] [address] AST [Catalytic activity/Vol] 22 U/L Normal 13-35 [facility] Comment on above: Order Comment: Speci men Type: BLOOD SPECIMENOrdering Facility: [facility] Address: [address] [place] [address] Performed By: #### 2 4323-8 ####[facility] LABCLIA [id number] [place] [address] Bilirubin [Mass/Vol] 0.3 mg/dL Normal 0.2-1.[address] [facility] Comment on above: Order Comment: Speci men Type: BLOOD SPECIMENOrdering Facility: [facility] Address: [address] [place] [address] Performed By: #### 2 4323-8 ####[facility] LABCLIA [id number] [place] [address] Calcium [Mass/Vol] 9.5 mg/dL Normal 8.5-10.2 [facility] Comment on above: Order Comment: Speci men Type: BLOOD SPECIMENOrdering Facility: [facility] Address: [address] [place] [address] Performed By: #### 2 4323-8 ####[facility] LABCLIA [id number] [place] [address] Chloride [Moles/Vol] 99 mmol/L Normal 97-[address] [facility] Comment on above: Order Comment: Speci men Type: BLOOD SPECIMENOrdering Facility: [facility] Address: [address] [place] [address] Performed By: #### 2 4323-8 ####[facility] LABCLIA [id number] [place] [address] CO2 [Moles/Vol] 26 mmol/L Normal 22-30 [facility] Comment on above: Order Comment: Speci men Type: BLOOD SPECIMENOrdering Facility: [facility] Address: [address] [place] [address] Performed By: #### 2 4323-8 ####[facility] LABCLIA [id number] [place] [address] Creatinine [Mass/Vol] 0.80 mg/dL Normal 0.58-0.96 [facility] Comment on above: Order Comment: Speci men Type: BLOOD SPECIMENOrdering Facility: [facility] Address: [address] [place] [address] Performed By: #### 2 4323-8 ####[facility] LABCLIA [id number] [place] [address] Creatinine and Glomerular filtration rate.predicted panel (S/P/Bld) 81 mL/min/1.73m??? Normal >=[address] [facility] Comment on above: Order Comment: Speci men Type: BLOOD SPECIMENOrdering Facility: [facility] Address: [address] [place] [address] Result Comment: Julita mated Glomerular Filtration Rate (eGFR) is calculated using the 2020 CKD-EPI creatinine equation. This equation utilizes serum creatinine, sex, and age as parameters. The creatinine assay has traceable calibration to isotope dilution-mass spectrometry. Refer to KDIGO guidelines for clinical interpretation. In patients with unstable renal function, e.g. those with acute kidney injury, the eGFR may not accurately reflect actual GFR. Performed By: #### 2 4323-8 ####[facility] LABCLIA [id number] [place] [address] Glucose [Mass/Vol] 186 mg/dL High 74-99 [facility] Comment on above: Order Comment: Speci men Type: BLOOD SPECIMENOrdering Facility: [facility] Address: [address] [place] [address] Result Comment: The [place] Diabetes [employer] (ADA) provides guidance for cutoff values for fasting glucose and random glucose. The ADA defines fasting as no caloric intake for at least 8 hours. Fasting plasma glucose results between 100 to 125 mg/dL indicate increased risk for diabetes (prediabetes).Fasting plasma glucose results greater than or equal to 126 mg/dL meet the criteria for diagnosis of diabetes. In the absence of unequivocal hyperglycemia, results should be confirmed by repeat testing. In a patient with classic symptoms of hyperglycemia or hyperglycemic crisis, random plasma glucose results greater than or equal to 200 mg/dL meet the criteria for diagnosis of diabetes.Reference: Standards of Medical Care in Diabetes 2016, [place] [employer]. Diabetes Care. 2016.39(Suppl 1). Performed By: #### 2 4323-8 ####[facility] LABCLIA [id number] [place] [address] Potassium [Moles/Vol] 4.6 mmol/L Normal 3.7-5.1 [facility] Comment on above: Order Comment: Speci men Type: BLOOD SPECIMENOrdering Facility: [facility] Address: [address] [place] [address] Performed By: #### 2 4323-8 ####[facility] LABCLIA [id number] [place] [address] Protein [Mass/Vol] 6.5 g/dL Normal 6.3-8.0 [facility] Comment on above: Order Comment: Speci men Type: BLOOD SPECIMENOrdering Facility: [facility] Address: [address] [place] [address] Performed By: #### 2 4323-8 ####[facility] LABCLIA [id number] [place] [address] Sodium [Moles/Vol] 133 mmol/L Low 136-144 [facility] Comment on above: Order Comment: Speci men Type: BLOOD SPECIMENOrdering Facility: [facility] Address: [address] [place] [address] Performed By: #### 2 4323-8 ####[facility] LABCLIA [id number] [place] [address] Urea nitrogen [Mass/Vol] 15 mg/dL Normal 7-21 [facility] Comment on above: Order Comment: Speci men Type: BLOOD SPECIMENOrdering Facility: [facility] Address: [address] [place] [id number] Performed By: #### 2 4323-8 ####[facility] LABCLIA [id number] [place] [address] Albumin [Mass/Vol] 4.2 g/dL 3.9 - 4.9 g/dL [facility] ALP [Catalytic activity/Vol] 108 U/L 34 - 12 3 U/L [facility] ALT [Catalytic activity/Vol] 30 U/L 7 - 38 U/L [facility] Anion gap [Moles/Vol] 8 mmol/L Low 9 - 18 mmol/L [facility] AST [Catalytic activity/Vol] 22 U/L 13 - 35 U/L [facility] Bilirubin [Mass/Vol] 0.3 mg/dL 0.2 - 1.3 mg/dL [facility] Calcium [Mass/Vol] 9.5 mg/dL 8.5 - 10.2 mg/dL [facility] Chloride [Moles/Vol] 99 mmol/L 97 - 105 mmol/L [facility] CO2 [Moles/Vol] 26 mmol/L 22 - 30 mmol/L [facility] Creatinine [Mass/Vol] 0.80 mg/dL 0.58 - 0.96 mg /dL [facility] Estimated Glomerular Filtration Rate 81 mL/min/1.73m >=60 mL/min/1.73m [facility] ic Glucose [Mass/Vol] 186 mg/dL High 74 - 99 mg/dL [facility] Potassium [Moles/Vol] 4.6 mmol/L 3.7 - 5.1 mmol /L [facility] Protein [Mass/Vol] 6.5 g/dL 6.3 - 8.0 g/dL [facility] Sodium [Moles/Vol] 133 mmol/L Low 136 - 144 mmol/L [facility] Urea nitrogen [Mass/Vol] 15 mg/dL 7 - 21 mg/d L [facility] CBC W Auto Differential pane l (Bld)on 04-29-2023 Anisocytosis Ql (Bld) Present Normal [facility] Comment on above: Order Comment: Speci men Type: BLOOD SPECIMENOrdering Facility: [facility] Address: [address] [place] [address] Performed By: #### 5 7021-8 ####[facility] LABCLIA [id number] [address] LABCLIA [id number] [place] [address] [place] Basophils (Bld) [#/Vol] 0.00 10*3/uL Normal <0.11 [facility] Comment on above: Order Comment: Speci men Type: BLOOD SPECIMENOrdering Facility: [facility] Address: [address] [place] [address] Performed By: #### 5 7021-8 ####[facility] LABCLIA [id number] [address] LABCLIA [id number] [place] [address] [place] Basophils/100 WBC (Bld) 0.0 % Normal [facility] Comment on above: Order Comment: Speci men Type: BLOOD SPECIMENOrdering Facility: [facility] Address: [address] [place] [address] Performed By: #### 5 7021-8 ####[facility] LABCLIA [id number] [address] LABCLIA [id number] [place] [address] [place] Differential cell count method Nom (Bld) Manual Normal [facility] Comment on above: Order Comment: Speci men Type: BLOOD SPECIMENOrdering Facility: [facility] Address: [address] [place] [address] Performed By: #### 5 7021-8 ####[facility] LABCLIA [id number] [address] LABCLIA [id number] [place] [address] [place] Eosinophils (Bld) [#/Vol] 0.04 10*3/uL Normal <0.46 [facility] Comment on above: Order Comment: Speci men Type: BLOOD SPECIMENOrdering Facility: [facility] Address: [address] [place] [address] Performed By: #### 5 7021-8 ####[facility] LABCLIA [id number] [address] LABCLIA [id number] [place] [address] [place] Eosinophils/100 WBC (Bld) 0.9 % Normal [facility] Comment on above: Order Comment: Speci men Type: BLOOD SPECIMENOrdering Facility: [facility] Address: [address] [place] [address] Performed By: #### 5 7021-8 ####[facility] LABCLIA [id number] [address] LABCLIA [id number] [place] [address] [place] Erythrocyte distribution wid th (RBC) [Ratio] 15.0 % Normal 11.5-15.0 [facility] Comment on above: Order Comment: Speci men Type: BLOOD SPECIMENOrdering Facility: [facility] Address: [address] [place] [address] Performed By: #### 5 7021-8 ####[facility] LABCLIA [id number] [address] LABCLIA [id number] [place] [address] [place] Hematocrit (Bld) [Volume fraction] 33.8 % Low 3 6.0-46.0 [facility] Comment on above: Order Comment: Speci men Type: BLOOD SPECIMENOrdering Facility: [facility] Address: [address] [place] [address] Performed By: #### 5 7021-8 ####[facility] LABCLIA [id number] [address] LABCLIA [id number] [place] [address] [place] Hemoglobin (Bld) [Mass/Vol] 11.7 g/dL Normal 11.5-15. 5 [facility] Comment on above: Order Comment: Speci men Type: BLOOD SPECIMENOrdering Facility: [facility] Address: [address] [place] [address] Performed By: #### 5 7021-8 ####[facility] LABCLIA [id number] [address] LABCLIA [id number] [place] [address] [place] Lymphocytes (Bld) [#/Vol] 1.98 10*3/uL Normal 1.00-4.0 0 [facility] Comment on above: Order Comment: Speci men Type: BLOOD SPECIMENOrdering Facility: [facility] Address: [address] [place] [address] Performed By: #### 5 7021-8 ####[facility] LABCLIA [id number] [address] LABCLIA [id number] [place] [address] [place] Lymphocytes/100 WBC (Bld) 49.6 % Normal [facility] Comment on above: Order Comment: Speci men Type: BLOOD SPECIMENOrdering Facility: [facility] Address: [address] [place] [address] Performed By: #### 5 7021-8 ####[facility] LABCLIA [id number] [place] [id number] LABCLIA [id number] [place] [address] [place] MCH (RBC) [Entitic mass] 30.2 pg Normal 26.0-34.0 [facility] Comment on above: Order Comment: Speci men Type: BLOOD SPECIMENOrdering Facility: [facility] Address: [address] [place] [address] Performed By: #### 5 7021-8 ####[facility] LABCLIA [id number] [address] LABCLIA [id number] [place] [address] [place] MCHC (RBC) [Mass/Vol] 34.6 g/dL Normal 30.5-36.0 [facility] Comment on above: Order Comment: Speci men Type: BLOOD SPECIMENOrdering Facility: [facility] Address: [address] [place] [address] Performed By: #### 5 7021-8 ####[facility] LABCLIA [id number] [address] LABCLIA [id number] [place] [address] [place] MCV (RBC) [Entitic vol] 87.1 fL Normal 80.0-100.0 [facility] Comment on above: Order Comment: Speci men Type: BLOOD SPECIMENOrdering Facility: [facility] Address: [address] [place] [address] Performed By: #### 5 7021-8 ####[facility] LABCLIA [id number] [address] LABCLIA [id number] [place] [address] [place] Monocytes (Bld) [#/Vol] 0.18 10*3/uL Normal <0.87 [facility] Comment on above: Order Comment: Speci men Type: BLOOD SPECIMENOrdering Facility: [facility] Address: [address] [place] [address] Performed By: #### 5 7021-8 ####[place] [facility] LABCLIA [id number] [address] LABCLIA [id number] [place] [address] [place] Monocytes/100 WBC (Bld) 4.4 % Normal [facility] Comment on above: Order Comment: Speci men Type: BLOOD SPECIMENOrdering Facility: [facility] Address: [address] [place] [address] Performed By: #### 5 7021-8 ####[facility] LABCLIA [id number] [address] LABCLIA [id number] [place] [address] [place] Neutrophils (Bld) [#/Vol] 1.80 10*3/uL Normal 1.45-7.5 0 [facility] Comment on above: Order Comment: Speci men Type: BLOOD SPECIMENOrdering Facility: [facility] Address: [address] [place] [address] Performed By: #### 5 7021-8 ####[facility] LABCLIA [id number] [address] LABCLIA [id number] [place] [address] [place] Neutrophils/100 WBC (Bld) 45.1 % Normal [facility] Comment on above: Order Comment: Speci men Type: BLOOD SPECIMENOrdering Facility: [facility] Address: [address] [place] [address] Performed By: #### 5 7021-8 ####[facility] LABCLIA [id number] [place] [id number] LABCLIA [id number] [place] [address] [place] Nucleated RBC (Bld) [#/Vol] 10*3/uL Normal <0.01 [facility] Comment on above: Order Comment: Speci men Type: BLOOD SPECIMENOrdering Facility: [facility] Address: [address] [place] [address] Performed By: #### 5 7021-8 ####[facility] LABCLIA [id number] [address] LABCLIA [id number] [place] [address] [place] Nucleated RBC/100 WBC (Bld) [Ratio] 0.0 /100 WBC Normal [facility] Comment on above: Order Comment: Speci men Type: BLOOD SPECIMENOrdering Facility: [facility] Address: [address] [place] [address] Performed By: #### 5 7021-8 ####[facility] LABCLIA [id number] [place] [id number] LABCLIA [id number] [place] [address] [place] Platelet mean volume (Bld) [ Entitic vol] 9.6 fL Normal 9.0-12.7 [facility] Comment on above: Order Comment: Speci men Type: BLOOD SPECIMENOrdering Facility: [facility] Address: [address] [place] [address] Performed By: #### 5 7021-8 ####[facility] LABCLIA [id number] [address] LABCLIA [id number] [place] [address] [place] Platelets (Bld) [#/Vol] 211 10*3/uL Normal 150-400 [facility] Comment on above: Order Comment: Speci men Type: BLOOD SPECIMENOrdering Facility: [facility] Address: [address] [place] [address] Performed By: #### 5 7021-8 ####[place] [facility] LABCLIA [id number] [address] LABCLIA [id number] [place] [address] [place] Platelets Estimate (Bld) [#/Vol] Adequate Normal [facility] Comment on above: Order Comment: Speci men Type: BLOOD SPECIMENOrdering Facility: [facility] Address: [address] [place] [address] Performed By: #### 5 7021-8 ####[facility] LABCLIA [id number] [address] LABCLIA [id number] [place] [address] [place] RBC (Bld) [#/Vol] 3.88 10*6/uL Low 3.90-5.20 [facility] Comment on above: Order Comment: Speci men Type: BLOOD SPECIMENOrdering Facility: [facility] Address: [address] [place] [address] Performed By: #### 5 7021-8 ####[facility] LABCLIA [id number] [address] LABCLIA [id number] [place] [address] [place] RED CELL MORPH Reviewed: see result s of individual morphologies Normal [facility] Comment on above: Order Comment: Speci men Type: BLOOD SPECIMENOrdering Facility: [facility] Address: [address] [place] [address] Performed By: #### 5 7021-8 ####[facility] LABCLIA [id number] [place] [id number] LABCLIA [id number] [address] [address] [place] WBC (Bld) [#/Vol] 3.99 10*3/uL Normal 3.70-11.00 [facility] Comment on above: Order Comment: Speci men Type: BLOOD SPECIMENOrdering Facility: [facility] Address: [address] [place] [address] Performed By: #### 5 7021-8 ####[facility] LABCLIA [id number] [place], [place] [address] LABCLIA [id number] [place] [address] [place] CNOVSPon 04-29-2023 CNOVSP Normal [facility] CNSWon 04-29-2023 CNSW Normal [facility] Comprehensive metabolic 2000 panelon 04-29-2023 Albumin [Mass/Vol] 4.3 g/dL Normal 3.9-4.9 [facility] Comment on above: Order Comment: Speci men Type: BLOOD SPECIMENOrdering Facility: [facility] Address: [address] [place] [address] Performed By: #### 2 4323-8 ####[facility] LABCLIA [id number] [place] [address] ALP [Catalytic activity/Vol] 109 U/L Normal 34-123 [facility] Comment on above: Order Comment: Speci men Type: BLOOD SPECIMENOrdering Facility: [facility] Address: [address] [place] [address] Performed By: #### 2 4323-8 ####[facility] LABCLIA [id number] [place] [address] ALT [Catalytic activity/Vol] 56 U/L High 7-38 [facility] Comment on above: Order Comment: Speci men Type: BLOOD SPECIMENOrdering Facility: [facility] Address: [address] [place] [address] Performed By: #### 2 4323-8 ####[facility] LABCLIA [id number] [place] [address] Anion gap [Moles/Vol] 11 mmol/L Normal 9-18 [facility] Comment on above: Order Comment: Speci men Type: BLOOD SPECIMENOrdering Facility: [facility] Address: [address] [place] [address] Performed By: #### 2 4323-8 ####[facility] LABCLIA [id number] [place] [address] AST [Catalytic activity/Vol] 31 U/L Normal 13-35 [facility] Comment on above: Order Comment: Speci men Type: BLOOD SPECIMENOrdering Facility: [facility] Address: [address] [place] [address] Performed By: #### 2 4323-8 ####[facility] LABCLIA [id number] [place] [address] Bilirubin [Mass/Vol] 0.4 mg/dL Normal 0.2-1.[address] [facility] Comment on above: Order Comment: Speci men Type: BLOOD SPECIMENOrdering Facility: [facility] Address: [address] [place] [address] Performed By: #### 2 4323-8 ####[facility] LABCLIA [id number] [place] [address] Calcium [Mass/Vol] 9.7 mg/dL Normal 8.5-10.2 [facility] Comment on above: Order Comment: Speci men Type: BLOOD SPECIMENOrdering Facility: [facility] Address: [address] [place] [address] Performed By: #### 2 4323-8 ####[facility] LABCLIA [id number] [place] [address] Chloride [Moles/Vol] 103 mmol/L Normal 97-[address] [facility] Comment on above: Order Comment: Speci men Type: BLOOD SPECIMENOrdering Facility: [facility] Address: [address] [place] [address] Performed By: #### 2 4323-8 ####[facility] LABCLIA [id number] [place] [address] CO2 [Moles/Vol] 27 mmol/L Normal 22-30 [facility] Comment on above: Order Comment: Speci men Type: BLOOD SPECIMENOrdering Facility: [facility] Address: [address] [place] [address] Performed By: #### 2 4323-8 ####[facility] LABCLIA [id number] [place] [address] Creatinine [Mass/Vol] 0.78 mg/dL Normal 0.58-0.96 [facility] Comment on above: Order Comment: Speci men Type: BLOOD SPECIMENOrdering Facility: [facility] Address: [address] [place] [address] Performed By: #### 2 4323-8 ####[facility] LABCLIA [id number] [place] [address] Creatinine and Glomerular filtration rate.predicted panel (S/P/Bld) 84 mL/min/1.73m??? Normal >=[address] [facility] Comment on above: Order Comment: Speci men Type: BLOOD SPECIMENOrdering Facility: [facility] Address: [address] [place] [address] Result Comment: Julita mated Glomerular Filtration Rate (eGFR) is calculated using the 2020 CKD-EPI creatinine equation. This equation utilizes serum creatinine, sex, and age as parameters. The creatinine assay has traceable calibration to isotope dilution-mass spectrometry. Refer to KDIGO guidelines for clinical interpretation. In patients with unstable renal function, e.g. those with acute kidney injury, the eGFR may not accurately reflect actual GFR. Performed By: #### 2 4323-8 ####[facility] LABCLIA [id number] [place] [address] Glucose [Mass/Vol] 177 mg/dL High 74-99 [facility] Comment on above: Order Comment: Speci men Type: BLOOD SPECIMENOrdering Facility: [facility] Address: [address] [place] [address] Result Comment: The [place] Diabetes Association (ADA) provides guidance for cutoff values for fasting glucose and random glucose. The ADA defines fasting as no caloric intake for at least 8 hours. Fasting plasma glucose results between 100 to 125 mg/dL indicate increased risk for diabetes (prediabetes).Fasting plasma glucose results greater than or equal to 126 mg/dL meet the criteria for diagnosis of diabetes. In the absence of unequivocal hyperglycemia, results should be confirmed by repeat testing. In a patient with classic symptoms of hyperglycemia or hyperglycemic crisis, random plasma glucose results greater than or equal to 200 mg/dL meet the criteria for diagnosis of diabetes.Reference: Standards of Medical Care in Diabetes 2016, [place] [employer]. Diabetes Care. 2016.39(Suppl 1). Performed By: #### 2 4323-8 ####[facility] LABCLIA [id number] [place] [address] Potassium [Moles/Vol] 4.2 mmol/L Normal 3.7-5.1 [facility] Comment on above: Order Comment: Speci men Type: BLOOD SPECIMENOrdering Facility: [facility] Address: [address] [place] [address] Performed By: #### 2 4323-8 ####[facility] LABCLIA [id number] [place] [address] Protein [Mass/Vol] 6.7 g/dL Normal 6.3-8.0 [facility] Comment on above: Order Comment: Speci men Type: BLOOD SPECIMENOrdering Facility: [facility] Address: [address] [place] [address] Performed By: #### 2 4323-8 ####[facility] LABCLIA [id number] [place] [address] Sodium [Moles/Vol] 141 mmol/L Normal 136-144 [facility] Comment on above: Order Comment: Speci men Type: BLOOD SPECIMENOrdering Facility: [facility] Address: [address] [place] [address] Performed By: #### 2 4323-8 ####[facility] LABCLIA [id number] [place] [address] Urea nitrogen [Mass/Vol] 12 mg/dL Normal 7-21 [facility] Comment on above: Order Comment: Speci men Type: BLOOD SPECIMENOrdering Facility: [facility] Address: [address] [place] [id number] Performed By: #### 2 4323-8 ####[facility] LABCLIA [id number] [place] [address] Albumin [Mass/Vol] 4.3 g/dL 3.9 - 4.9 g/dL [facility] ALP [Catalytic activity/Vol] 109 U/L 34 - 12 3 U/L [facility] ALT [Catalytic activity/Vol] 56 U/L High 7 - 38 U/L [facility] Anion gap [Moles/Vol] 11 mmol/L 9 - 18 mmol/L [facility] AST [Catalytic activity/Vol] 31 U/L 13 - 35 U/L [facility] Bilirubin [Mass/Vol] 0.4 mg/dL 0.2 - 1.3 mg/dL [facility] Calcium [Mass/Vol] 9.7 mg/dL 8.5 - 10.2 mg/dL [facility] Chloride [Moles/Vol] 103 mmol/L 97 - 105 mmol/L [facility] CO2 [Moles/Vol] 27 mmol/L 22 - 30 mmol/L [facility] Creatinine [Mass/Vol] 0.78 mg/dL 0.58 - 0.96 mg /dL [facility] Estimated Glomerular Filtration Rate 84 mL/min/1.73m >=60 mL/min/1.73m [facility] ic Glucose [Mass/Vol] 177 mg/dL High 74 - 99 mg/dL [facility] Potassium [Moles/Vol] 4.2 mmol/L 3.7 - 5.1 mmol /L [facility] Protein [Mass/Vol] 6.7 g/dL 6.3 - 8.0 g/dL [facility] Sodium [Moles/Vol] 141 mmol/L 136 - 144 mmol/L [facility] Urea nitrogen [Mass/Vol] 12 mg/dL 7 - 21 mg/d L [facility] CNPNon 04-25-2023 CNPN Normal [facility] CBC W Auto Differential pane l (Bld)on 04-22-2023 Basophils (Bld) [#/Vol] 10*3/uL Normal <0.11 [facility] Comment on above: Order Comment: Speci men Type: BLOOD SPECIMENOrdering Facility: [facility] Address: [address] [place] [address] Performed By: #### 5 7021-8 ####[facility] LABCLIA [id number] [place] [address] Basophils/100 WBC (Bld) 0.3 % Normal [facility] Comment on above: Order Comment: Speci men Type: BLOOD SPECIMENOrdering Facility: [facility] Address: [address] [place] [address] Performed By: #### 5 7021-8 ####[facility] LABCLIA [id number] [place] [address] Differential cell count method Nom (Bld) Auto Normal [facility] Comment on above: Order Comment: Speci men Type: BLOOD SPECIMENOrdering Facility: [facility] Address: [address] [place] [address] Performed By: #### 5 7021-8 ####[facility] LABCLIA [id number] [place] [address] Eosinophils (Bld) [#/Vol] 10*3/uL Normal <0.46 [facility] Comment on above: Order Comment: Speci men Type: BLOOD SPECIMENOrdering Facility: [facility] Address: [address] [place] [address] Performed By: #### 5 7021-8 ####[facility] LABCLIA [id number] [place] [address] Eosinophils/100 WBC (Bld) 0.6 % Normal [facility] Comment on above: Order Comment: Speci men Type: BLOOD SPECIMENOrdering Facility: [facility] Address: [address] [place] [address] Performed By: #### 5 7021-8 ####[facility] LABCLIA [id number] [place] [address] Erythrocyte distribution wid th (RBC) [Ratio] 14.3 % Normal 11.5-15.0 [facility] Comment on above: Order Comment: Speci men Type: BLOOD SPECIMENOrdering Facility: [facility] Address: [address] [place] [address] Performed By: #### 5 7021-8 ####[facility] LABCLIA [id number] [place] [address] Hematocrit (Bld) [Volume fraction] 34.5 % Low 3 6.0-46.0 [facility] Comment on above: Order Comment: Speci men Type: BLOOD SPECIMENOrdering Facility: [facility] Address: [address] [place] [address] Performed By: #### 5 7021-8 ####[facility] LABCLIA [id number] [place] [address] Hemoglobin (Bld) [Mass/Vol] 12.0 g/dL Normal 11.5-15. 5 [facility] Comment on above: Order Comment: Speci men Type: BLOOD SPECIMENOrdering Facility: [facility] Address: [address] [place] [address] Performed By: #### 5 7021-8 ####[facility] LABCLIA [id number] [place] [address] Immature granulocytes (Bld) [#/Vol] 10*3/uL Normal <0.10 [facility] Comment on above: Order Comment: Speci men Type: BLOOD SPECIMENOrdering Facility: [facility] Address: [address] [place] [address] Performed By: #### 5 7021-8 ####[facility] LABCLIA [id number] [place] [address] Immature granulocytes/100 WBC (Bld) 0.3 % Normal [facility] Comment on above: Order Comment: Speci men Type: BLOOD SPECIMENOrdering Facility: [facility] Address: [address] [place] [address] Performed By: #### 5 7021-8 ####[facility] LABCLIA [id number] [place] [address] Lymphocytes (Bld) [#/Vol] 1.10 10*3/uL Normal 1.00-4.0 0 [facility] Comment on above: Order Comment: Speci men Type: BLOOD SPECIMENOrdering Facility: [facility] Address: [address] [place] [address] Performed By: #### 5 7021-8 ####[facility] LABIA [id number] [place] [address] Lymphocytes/100 WBC (Bld) 35.1 % Normal [facility] Comment on above: Order Comment: Speci men Type: BLOOD SPECIMENOrdering Facility: [facility] Address: [address] [place] [address] Performed By: #### 5 7021-8 ####[facility] LABIA [id number] [place] [address] MCH (RBC) [Entitic mass] 30.4 pg Normal 26.0-34.0 [facility] Comment on above: Order Comment: Speci men Type: BLOOD SPECIMENOrdering Facility: [facility] Address: [address] [place] [address] Performed By: #### 5 7021-8 ####[facility] LABIA [id number] [place] [address] MCHC (RBC) [Mass/Vol] 34.8 g/dL Normal 30.5-36.0 [facility] Comment on above: Order Comment: Speci men Type: BLOOD SPECIMENOrdering Facility: [facility] Address: [address] [place] [address] Performed By: #### 5 7021-8 ####[facility] LABCLIA [id number] [place] [address] MCV (RBC) [Entitic vol] 87.3 fL Normal 80.0-100.0 [facility] Comment on above: Order Comment: Speci men Type: BLOOD SPECIMENOrdering Facility: [facility] Address: [address] [place] [address] Performed By: #### 5 7021-8 ####[facility] LABCLIA [id number] [place] [address] Monocytes (Bld) [#/Vol] 0.23 10*3/uL Normal <0.87 [facility] Comment on above: Order Comment: Speci men Type: BLOOD SPECIMENOrdering Facility: [facility] Address: [address] [place] [address] Performed By: #### 5 7021-8 ####[facility] LABCLIA [id number] [place] [address] Monocytes/100 WBC (Bld) 7.3 % Normal [facility] Comment on above: Order Comment: Speci men Type: BLOOD SPECIMENOrdering Facility: [facility] Address: [address] [place] [address] Performed By: #### 5 7021-8 ####[facility] LABCLIA [id number] [place] [address] Neutrophils (Bld) [#/Vol] 1.76 10*3/uL Normal 1.45-7.5 0 [facility] Comment on above: Order Comment: Speci men Type: BLOOD SPECIMENOrdering Facility: [facility] Address: [address] [place] [address] Performed By: #### 5 7021-8 ####[facility] LABCLIA [id number] [place] [address] Neutrophils/100 WBC (Bld) 56.4 % Normal [facility] Comment on above: Order Comment: Speci men Type: BLOOD SPECIMENOrdering Facility: [facility] Address: [address] [place] [address] Performed By: #### 5 7021-8 ####[facility] LABCLIA [id number] [place] [address] Nucleated RBC (Bld) [#/Vol] 10*3/uL Normal <0.01 [facility] Comment on above: Order Comment: Speci men Type: BLOOD SPECIMENOrdering Facility: [facility] Address: [address] [place] [address] Performed By: #### 5 7021-8 ####[facility] LABCLIA [id number] [place] [address] Nucleated RBC/100 WBC (Bld) [Ratio] 0.0 /100 WBC Normal [facility] Comment on above: Order Comment: Speci men Type: BLOOD SPECIMENOrdering Facility: [facility] Address: [address] [place] [address] Performed By: #### 5 7021-8 ####[facility] LABCLIA [id number] [place] [address] Platelet mean volume (Bld) [ Entitic vol] 9.6 fL Normal 9.0-12.7 [facility] Comment on above: Order Comment: Speci men Type: BLOOD SPECIMENOrdering Facility: [facility] Address: [address] [place] [address] Performed By: #### 5 7021-8 ####[facility] LABCLIA [id number] [place] [address] Platelets (Bld) [#/Vol] 197 10*3/uL Normal 150-400 [facility] Comment on above: Order Comment: Speci men Type: BLOOD SPECIMENOrdering Facility: [facility] Address: [address] [place] [address] Performed By: #### 5 7021-8 ####[facility] LABCLIA [id number] [place] [address] RBC (Bld) [#/Vol] 3.95 10*6/uL Normal 3.90-5.20 [facility] Comment on above: Order Comment: Speci men Type: BLOOD SPECIMENOrdering Facility: [facility] Address: [address] [place] [address] Performed By: #### 5 7021-8 ####[facility] LABIA [id number] [place] [address] WBC (Bld) [#/Vol] 3.13 10*3/uL Low 3.70-11.00 [facility] Comment on above: Order Comment: Speci men Type: BLOOD SPECIMENOrdering Facility: [facility] Address: [address] [place] [address] Performed By: #### 5 7021-8 ####[facility] LABIA [id number] [place] [address] Basophils (Bld) [#/Vol] <0.11 k/uL C [facility] Basophils/100 WBC (Bld) 0.3 % C [facility] Differential cell count meth od Nom (Bld) Auto [facility] Eosinophils (Bld) [#/Vol] <0.46 k/uL [facility] Eosinophils/100 WBC (Bld) 0.6 % [facility] Erythrocyte distribution wid th (RBC) [Ratio] 14.3 % 11.5 - 15.0 % [facility] Hematocrit (Bld) [Volume fraction] 34.5 % Low 36.0 - 46.0 % [facility] Hemoglobin (Bld) [Mass/Vol] 12.0 g/dL 11.5 - 1 5.5 g/dL [facility] Immature granulocytes (Bld) [#/Vol] <0.10 k/uL [facility] Immature granulocytes/100 WB C (Bld) 0.3 % [facility] Lymphocytes (Bld) [#/Vol] 1.10 10*3/uL 1.00 - 4 .00 k/uL [facility] Lymphocytes/100 WBC (Bld) 35.1 % [facility] MCH (RBC) [Entitic mass] 30.4 pg 26.0 - 34.0 pg [facility] MCHC (RBC) [Mass/Vol] 34.8 g/dL 30.5 - 36.0 g/ dL [facility] MCV (RBC) [Entitic vol] 87.3 fL 80.0 - 100.0 fL [facility] Monocytes (Bld) [#/Vol] 0.23 10*3/uL <0.87 k/uL [facility] Monocytes/100 WBC (Bld) 7.3 % C [facility] Neutrophils (Bld) [#/Vol] 1.76 10*3/uL 1.45 - 7 .50 k/uL [facility] Neutrophils/100 WBC (Bld) 56.4 % [facility] Nucleated RBC (Bld) [#/Vol] <0.01 k/ uL [facility] Nucleated RBC/100 WBC (Bld) [Ratio] 0.0 /100 WBC [facility] Platelet mean volume (Bld) [Entitic vol] 9.6 fL 9.0 - 12.7 fL [facility] Platelets (Bld) [#/Vol] 197 10*3/uL 150 - 400 k /uL [facility] RBC (Bld) [#/Vol] 3.95 10*6/uL 3.90 - 5.20 m/uL [facility] WBC (Bld) [#/Vol] 3.13 10*3/uL Low 3.70 - 11.00 k/u L [facility] CNPNon 04-22-2023 CNPN Normal [facility] Comprehensive metabolic 2000 panelon 04-22-2023 Albumin [Mass/Vol] 4.4 g/dL Normal 3.9-4.9 [facility] Comment on above: Order Comment: Speci men Type: BLOOD SPECIMENOrdering Facility: [facility] Address: [address] [place] [address] Performed By: #### 2 4323-8 ####[facility] LABCLIA [id number] [place] [address] ALP [Catalytic activity/Vol] 115 U/L Normal 34-123 [facility] Comment on above: Order Comment: Speci men Type: BLOOD SPECIMENOrdering Facility: [facility] Address: [address] [place] [address] Performed By: #### 2 4323-8 ####[facility] LABCLIA [id number] [facility] [address] ALT [Catalytic activity/Vol] 92 U/L High 7-38 [facility] Comment on above: Order Comment: Speci men Type: BLOOD SPECIMENOrdering Facility: [facility] Address: [address] [place] [address] Performed By: #### 2 4323-8 ####[facility] LABCLIA [id number] [place] [address] Anion gap [Moles/Vol] 9 mmol/L Normal 9-18 [facility] Comment on above: Order Comment: Speci men Type: BLOOD SPECIMENOrdering Facility: [facility] Address: [address] [place] [address] Performed By: #### 2 4323-8 ####[facility] LABCLIA [id number] [facility] [address] AST [Catalytic activity/Vol] 50 U/L High 13-35 [facility] Comment on above: Order Comment: Speci men Type: BLOOD SPECIMENOrdering Facility: [facility] Address: [address] [place] [address] Performed By: #### 2 4323-8 ####[facility] LABCLIA [id number] [place] [address] Bilirubin [Mass/Vol] 0.4 mg/dL Normal 0.2-1.[address] [facility] Comment on above: Order Comment: Speci men Type: BLOOD SPECIMENOrdering Facility: [facility] Address: [address] [place] [address] Performed By: #### 2 4323-8 ####[facility] LABCLIA [id number] [facility] [address] Calcium [Mass/Vol] 9.4 mg/dL Normal 8.5-10.2 [facility] Comment on above: Order Comment: Speci men Type: BLOOD SPECIMENOrdering Facility: [facility] Address: [address] [place] [address] Performed By: #### 2 4323-8 ####[facility] LABCLIA [id number] [place] [address] Chloride [Moles/Vol] 104 mmol/L Normal 97-[address] [facility] Comment on above: Order Comment: Speci men Type: BLOOD SPECIMENOrdering Facility: [facility] Address: [address] [place] [address] Performed By: #### 2 4323-8 ####[facility] LABCLIA [id number] [place] [address] CO2 [Moles/Vol] 23 mmol/L Normal 22-30 [facility] Comment on above: Order Comment: Speci men Type: BLOOD SPECIMENOrdering Facility: [facility] Address: [address] [place] [address] Performed By: #### 2 4323-8 ####[facility] LABCLIA [id number] [place] [address] Creatinine [Mass/Vol] 0.76 mg/dL Normal 0.58-0.96 [facility] Comment on above: Order Comment: Speci men Type: BLOOD SPECIMENOrdering Facility: [facility] Address: [address] [place] [address] Performed By: #### 2 4323-8 ####[facility] LABCLIA [id number] [place] [address] Creatinine and Glomerular filtration rate.predicted panel (S/P/Bld) 87 mL/min/1.73m??? Normal >=[address] [facility] Comment on above: Order Comment: Speci men Type: BLOOD SPECIMENOrdering Facility: [facility] Address: [address] [place] [address] Result Comment: Julita mated Glomerular Filtration Rate (eGFR) is calculated using the 2020 CKD-EPI creatinine equation. This equation utilizes serum creatinine, sex, and age as parameters. The creatinine assay has traceable calibration to isotope dilution-mass spectrometry. Refer to KDIGO guidelines for clinical interpretation. In patients with unstable renal function, e.g. those with acute kidney injury, the eGFR may not accurately reflect actual GFR. Performed By: #### 2 4323-8 ####[facility] LABCLIA [id number] [place] [address] Glucose [Mass/Vol] 166 mg/dL High 74-99 [facility] Comment on above: Order Comment: Speci men Type: BLOOD SPECIMENOrdering Facility: [facility] Address: [address] [place] [address] Result Comment: The [place] Diabetes [employer] (ADA) provides guidance for cutoff values for fasting glucose and random glucose. The ADA defines fasting as no caloric intake for at least 8 hours. Fasting plasma glucose results between 100 to 125 mg/dL indicate increased risk for diabetes (prediabetes).Fasting plasma glucose results greater than or equal to 126 mg/dL meet the criteria for diagnosis of diabetes. In the absence of unequivocal hyperglycemia, results should be confirmed by repeat testing. In a patient with classic symptoms of hyperglycemia or hyperglycemic crisis, random plasma glucose results greater than or equal to 200 mg/dL meet the criteria for diagnosis of diabetes.Reference: Standards of Medical Care in Diabetes 2016, [place] [employer]. Diabetes Care. 2016.39(Suppl 1). Performed By: #### 2 4323-8 ####[facility] LABCLIA [id number] [place] [address] Potassium [Moles/Vol] 3.7 mmol/L Normal 3.7-5.1 [facility] Comment on above: Order Comment: Speci men Type: BLOOD SPECIMENOrdering Facility: [facility] Address: [address] [place] [address] Performed By: #### 2 4323-8 ####[facility] LABCLIA [id number] [place] [address] Protein [Mass/Vol] 6.8 g/dL Normal 6.3-8.0 [facility] Comment on above: Order Comment: Speci men Type: BLOOD SPECIMENOrdering Facility: [facility] Address: [address] [place] [address] Performed By: #### 2 4323-8 ####[facility] LABCLIA [id number] [place] [address] Sodium [Moles/Vol] 136 mmol/L Normal 136-144 [facility] Comment on above: Order Comment: Speci men Type: BLOOD SPECIMENOrdering Facility: [facility] Address: [address] [place] [address] Performed By: #### 2 4323-8 ####[facility] LABCLIA [id number] [place] [address] Urea nitrogen [Mass/Vol] 11 mg/dL Normal 7-21 [facility] Comment on above: Order Comment: Speci men Type: BLOOD SPECIMENOrdering Facility: [facility] Address: [address] [place] [address] Performed By: #### 2 4323-8 ####[facility] LABCLIA [id number] [place] [address] Albumin [Mass/Vol] 4.4 g/dL 3.9 - 4.9 g/dL [facility] ALP [Catalytic activity/Vol] 115 U/L 34 - 12 3 U/L [facility] ALT [Catalytic activity/Vol] 92 U/L High 7 - 38 U/L [facility] Anion gap [Moles/Vol] 9 mmol/L 9 - 18 mmol/L [facility] AST [Catalytic activity/Vol] 50 U/L High 13 - 35 U/L [facility] Bilirubin [Mass/Vol] 0.4 mg/dL 0.2 - 1.3 mg/dL [facility] Calcium [Mass/Vol] 9.4 mg/dL 8.5 - 10.2 mg/dL [facility] Chloride [Moles/Vol] 104 mmol/L 97 - 105 mmol/L [facility] CO2 [Moles/Vol] 23 mmol/L 22 - 30 mmol/L [facility] Creatinine [Mass/Vol] 0.76 mg/dL 0.58 - 0.96 mg /dL [facility] Estimated Glomerular Filtration Rate 87 mL/min/1.73m >=60 mL/min/1.73m [facility] Glucose [Mass/Vol] 166 mg/dL High 74 - 99 mg/dL [facility] Potassium [Moles/Vol] 3.7 mmol/L 3.7 - 5.1 mmol /L [facility] Protein [Mass/Vol] 6.8 g/dL 6.3 - 8.0 g/dL [facility] Sodium [Moles/Vol] 136 mmol/L 136 - 144 mmol/L [facility] Urea nitrogen [Mass/Vol] 11 mg/dL 7 - 21 mg/d L [facility] CBC W Auto Differential pane l (Bld)on 04-15-2023 Basophils (Bld) [#/Vol] 0.03 10*3/uL Normal <0.11 [facility] Comment on above: Order Comment: Speci men Type: BLOOD SPECIMENOrdering Facility: [facility] Address: [address] [place] [address] Performed By: #### 5 7021-8 ####[facility] LABCLIA [id number] [place] [address] Basophils/100 WBC (Bld) 0.7 % Normal [facility] Comment on above: Order Comment: Speci men Type: BLOOD SPECIMENOrdering Facility: [facility] Address: [address] [place] [address] Performed By: #### 5 7021-8 ####[facility] LABCLIA [id number] [place] [address] Differential cell count method Nom (Bld) Auto Normal [facility] Comment on above: Order Comment: Speci men Type: BLOOD SPECIMENOrdering Facility: [facility] Address: [address] [place] [address] Performed By: #### 5 7021-8 ####[facility] LABCLIA [id number] [place] [address] Eosinophils (Bld) [#/Vol] 0.05 10*3/uL Normal <0.46 [facility] Comment on above: Order Comment: Speci men Type: BLOOD SPECIMENOrdering Facility: [facility] Address: [address] [place] [address] Performed By: #### 5 7021-8 ####[facility] LABCLIA [id number] [place] [address] Eosinophils/100 WBC (Bld) 1.2 % Normal [facility] Comment on above: Order Comment: Speci men Type: BLOOD SPECIMENOrdering Facility: [facility] Address: [address] [place] [address] Performed By: #### 5 7021-8 ####[facility] LABCLIA [id number] [place] [address] Erythrocyte distribution wid th (RBC) [Ratio] 13.9 % Normal 11.5-15.0 [facility] Comment on above: Order Comment: Speci men Type: BLOOD SPECIMENOrdering Facility: [facility] Address: [address] [place] [address] Performed By: #### 5 7021-8 ####[facility] LABCLIA [id number] [place] [address] Hematocrit (Bld) [Volume fraction] 35.0 % Low 3 6.0-46.0 [facility] Comment on above: Order Comment: Speci men Type: BLOOD SPECIMENOrdering Facility: [facility] Address: [address] [place] [address] Performed By: #### 5 7021-8 ####[facility] LABCLIA [id number] [place] [address] Hemoglobin (Bld) [Mass/Vol] 11.9 g/dL Normal 11.5-15. 5 [facility] Comment on above: Order Comment: Speci men Type: BLOOD SPECIMENOrdering Facility: [facility] Address: [address] [place] [address] Performed By: #### 5 7021-8 ####[facility] LABCLIA [id number] [place] [address] Immature granulocytes (Bld) [#/Vol] 10*3/uL Normal <0.10 [facility] Comment on above: Order Comment: Speci men Type: BLOOD SPECIMENOrdering Facility: [facility] Address: [address] [place] [address] Performed By: #### 5 7021-8 ####[facility] LABCLIA [id number] [place] [address] Immature granulocytes/100 WBC (Bld) 0.2 % Normal [facility] Comment on above: Order Comment: Speci men Type: BLOOD SPECIMENOrdering Facility: [facility] Address: [address] [place] [address] Performed By: #### 5 7021-8 ####[facility] LABIA [id number] [place] [address] Lymphocytes (Bld) [#/Vol] 1.65 10*3/uL Normal 1.00-4.0 0 [facility] Comment on above: Order Comment: Speci men Type: BLOOD SPECIMENOrdering Facility: [facility] Address: [address] [place] [address] Performed By: #### 5 7021-8 ####[facility] LABCLIA [id number] [place] [address] Lymphocytes/100 WBC (Bld) 40.0 % Normal [facility] Comment on above: Order Comment: Speci men Type: BLOOD SPECIMENOrdering Facility: [facility] Address: [address] [place] [address] Performed By: #### 5 7021-8 ####[facility] LABIA [id number] [place] [address] MCH (RBC) [Entitic mass] 30.2 pg Normal 26.0-34.0 [facility] Comment on above: Order Comment: Speci men Type: BLOOD SPECIMENOrdering Facility: [facility] Address: [address] [place] [address] Performed By: #### 5 7021-8 ####[facility] LABCLIA [id number] [place] [address] MCHC (RBC) [Mass/Vol] 34.0 g/dL Normal 30.5-36.0 [facility] Comment on above: Order Comment: Speci men Type: BLOOD SPECIMENOrdering Facility: [facility] Address: [address] [place] [address] Performed By: #### 5 7021-8 ####[facility] LABCLIA [id number] [place] [address] MCV (RBC) [Entitic vol] 88.8 fL Normal 80.0-100.0 [facility] Comment on above: Order Comment: Speci men Type: BLOOD SPECIMENOrdering Facility: [facility] Address: [address] [place] [address] Performed By: #### 5 7021-8 ####[facility] LABCLIA [id number] [place] [address] Monocytes (Bld) [#/Vol] 0.29 10*3/uL Normal <0.87 [facility] Comment on above: Order Comment: Speci men Type: BLOOD SPECIMENOrdering Facility: [facility] Address: [address] [place] [address] Performed By: #### 5 7021-8 ####[facility] LABCLIA [id number] [place] [address] Monocytes/100 WBC (Bld) 7.0 % Normal [facility] Comment on above: Order Comment: Speci men Type: BLOOD SPECIMENOrdering Facility: [facility] Address: [address] [place] [address] Performed By: #### 5 7021-8 ####[facility] LABCLIA [id number] [place] [address] Neutrophils (Bld) [#/Vol] 2.09 10*3/uL Normal 1.45-7.5 0 [facility] Comment on above: Order Comment: Speci men Type: BLOOD SPECIMENOrdering Facility: [facility] Address: [address] [place] [address] Performed By: #### 5 7021-8 ####[facility] LABCLIA [id number] [place] [address] Neutrophils/100 WBC (Bld) 50.9 % Normal [facility] Comment on above: Order Comment: Speci men Type: BLOOD SPECIMENOrdering Facility: [facility] Address: [address] [place] [address] Performed By: #### 5 7021-8 ####[facility] LABCLIA [id number] [place] [address] Nucleated RBC (Bld) [#/Vol] 10*3/uL Normal <0.01 [facility] Comment on above: Order Comment: Speci men Type: BLOOD SPECIMENOrdering Facility: [facility] Address: [address] [place] [address] Performed By: #### 5 7021-8 ####[facility] LABCLIA [id number] [place] [address] Nucleated RBC/100 WBC (Bld) [Ratio] 0.0 /100 WBC Normal [facility] Comment on above: Order Comment: Speci men Type: BLOOD SPECIMENOrdering Facility: [facility] Address: [address] [place] [address] Performed By: #### 5 7021-8 ####[facility] LABCLIA [id number] [place] [address] Platelet mean volume (Bld) [ Entitic vol] 8.9 fL Low 9.0-12.7 [facility] Comment on above: Order Comment: Speci men Type: BLOOD SPECIMENOrdering Facility: [facility] Address: [address] [place] [address] Performed By: #### 5 7021-8 ####[facility] LABCLIA [id number] [place] [address] Platelets (Bld) [#/Vol] 272 10*3/uL Normal 150-400 [facility] Comment on above: Order Comment: Speci men Type: BLOOD SPECIMENOrdering Facility: [facility] Address: [address] [place] [address] Performed By: #### 5 7021-8 ####[facility] LABIA [id number] [place] [address] RBC (Bld) [#/Vol] 3.94 10*6/uL Normal 3.90-5.20 [facility] Comment on above: Order Comment: Speci men Type: BLOOD SPECIMENOrdering Facility: [facility] Address: [address] [place] [address] Performed By: #### 5 7021-8 ####[facility] LABIA [id number] [place] [address] WBC (Bld) [#/Vol] 4.12 10*3/uL Normal 3.70-11.00 [facility] Comment on above: Order Comment: Speci men Type: BLOOD SPECIMENOrdering Facility: [facility] Address: [address] [place] [address] Performed By: #### 5 7021-8 ####[facility] LABIA [id number] [place] [address] Comprehensive metabolic 2000 panelon 04-15-2023 Albumin [Mass/Vol] 4.3 g/dL Normal 3.9-4.9 [facility] Comment on above: Order Comment: Speci men Type: BLOOD SPECIMENOrdering Facility: [facility] Address: [address] [place] [address] Performed By: #### 2 4323-8 ####[facility] LABIA [id number] [place] [address] ALP [Catalytic activity/Vol] 107 U/L Normal 34-123 [facility] Comment on above: Order Comment: Speci men Type: BLOOD SPECIMENOrdering Facility: [facility] Address: [address] [place] [address] Performed By: #### 2 4323-8 ####[facility] LABCLIA [id number] [place] [address] ALT [Catalytic activity/Vol] 54 U/L High 7-38 [facility] Comment on above: Order Comment: Speci men Type: BLOOD SPECIMENOrdering Facility: [facility] Address: [address] [place] [address] Performed By: #### 2 4323-8 ####[facility] [facility] LABCLIA [id number] [place] [address] Anion gap [Moles/Vol] 11 mmol/L Normal 9-18 [facility] Comment on above: Order Comment: Speci men Type: BLOOD SPECIMENOrdering Facility: [facility] Address: [address] [place] [address] Performed By: #### 2 4323-8 ####[facility] LABCLIA [id number] [place] [address] AST [Catalytic activity/Vol] 33 U/L Normal 13-35 [facility] Comment on above: Order Comment: Speci men Type: BLOOD SPECIMENOrdering Facility: [facility] Address: [address] [place] [address] Performed By: #### 2 4323-8 ####[facility] LABCLIA [id number] [place] [address] Bilirubin [Mass/Vol] 0.3 mg/dL Normal 0.2-1.[address] [facility] Comment on above: Order Comment: Speci men Type: BLOOD SPECIMENOrdering Facility: [facility] Address: [address] [place] [address] Performed By: #### 2 4323-8 ####[facility] LABCLIA [id number] [place] [address] Calcium [Mass/Vol] 9.5 mg/dL Normal 8.5-10.2 [facility] Comment on above: Order Comment: Speci men Type: BLOOD SPECIMENOrdering Facility: [facility] Address: [address] [place] [address] Performed By: #### 2 4323-8 ####[facility] LABCLIA [id number] [place] [address] Chloride [Moles/Vol] 103 mmol/L Normal 97-[address] [facility] Comment on above: Order Comment: Speci men Type: BLOOD SPECIMENOrdering Facility: [facility] Address: [address] [place] [address] Performed By: #### 2 4323-8 ####[facility] LABCLIA [id number] [place] [address] CO2 [Moles/Vol] 24 mmol/L Normal 22-30 [facility] Comment on above: Order Comment: Speci men Type: BLOOD SPECIMENOrdering Facility: [facility] Address: [address] [place] [address] Performed By: #### 2 4323-8 ####[facility] LABCLIA [id number] [place] [address] Creatinine [Mass/Vol] 0.74 mg/dL Normal 0.58-0.96 [facility] Comment on above: Order Comment: Speci men Type: BLOOD SPECIMENOrdering Facility: [facility] Address: [address] [place] [address] Performed By: #### 2 4323-8 ####[facility] LABCLIA [id number] [place] [address] Creatinine and Glomerular filtration rate.predicted panel (S/P/Bld) 89 mL/min/1.73m??? Normal >=[address] [facility] Comment on above: Order Comment: Speci men Type: BLOOD SPECIMENOrdering Facility: [facility] Address: [address] [place] [address] Result Comment: Julita mated Glomerular Filtration Rate (eGFR) is calculated using the 2020 CKD-EPI creatinine equation. This equation utilizes serum creatinine, sex, and age as parameters. The creatinine assay has traceable calibration to isotope dilution-mass spectrometry. Refer to KDIGO guidelines for clinical interpretation. In patients with unstable renal function, e.g. those with acute kidney injury, the eGFR may not accurately reflect actual GFR. Performed By: #### 2 4323-8 ####[facility] LABCLIA [id number] [place] [address] Glucose [Mass/Vol] 229 mg/dL High 74-99 [facility] Comment on above: Order Comment: Speci men Type: BLOOD SPECIMENOrdering Facility: [facility] Address: [address] [place], [place] [address] Result Comment: The [place] Diabetes Association (ADA) provides guidance for cutoff values for fasting glucose and random glucose. The ADA defines fasting as no caloric intake for at least 8 hours. Fasting plasma glucose results between 100 to 125 mg/dL indicate increased risk for diabetes (prediabetes).Fasting plasma glucose results greater than or equal to 126 mg/dL meet the criteria for diagnosis of diabetes. In the absence of unequivocal hyperglycemia, results should be confirmed by repeat testing. In a patient with classic symptoms of hyperglycemia or hyperglycemic crisis, random plasma glucose results greater than or equal to 200 mg/dL meet the criteria for diagnosis of diabetes.Reference: Standards of Medical Care in Diabetes 2016, [place] Diabetes Association. Diabetes Care. 2016.39(Suppl 1). Performed By: #### 2 4323-8 ####[facility] LABCLIA [id number] [place] [address] Potassium [Moles/Vol] 4.1 mmol/L Normal 3.7-5.1 [facility] Comment on above: Order Comment: Mahamed huynh Type: BLOOD SPECIMENOrdering Facility: [facility] Address: [address] [place] [address] Performed By: #### 2 4323-8 ####[facility] LABCLIA [id number] [place] [address] Protein [Mass/Vol] 6.7 g/dL Normal 6.3-8.0 [facility] Comment on above: Order Comment: Speci men Type: BLOOD SPECIMENOrdering Facility: [facility] Address: [address] [place] [address] Performed By: #### 2 4323-8 ####[facility] LABCLIA [id number] [place] [address] Sodium [Moles/Vol] 138 mmol/L Normal 136-144 [facility] Comment on above: Order Comment: Speci men Type: BLOOD SPECIMENOrdering Facility: [facility] Address: [address] [place] [address] Performed By: #### 2 4323-8 ####[facility] LABCLIA [id number] [place] [address] Urea nitrogen [Mass/Vol] 12 mg/dL Normal 7-21 [facility] Comment on above: Order Comment: Speci men Type: BLOOD SPECIMENOrdering Facility: [facility] Address: [address] [place] [address] Performed By: #### 2 4323-8 ####[facility] LABCLIA [id number] [place] [address] MISC SEND OUT TST 1on 2022 REFERRAL LAB 1 [employer] Normal [facility] Comment on above: Order Comment: Speci men Type: BLOOD SPECIMENOrdering Facility: [facility] Address: [address] [place] [address] Performed By: #### M ISC1 ####NON-INTERFACED REF LABSCLIA SEE SCANNED RESULTS TEST 1 Multi Cancer Panel Normal [facility] Comment on above: Order Comment: Speci men Type: BLOOD SPECIMENOrdering Facility: [facility] Address: [address] [place] [address] Performed By: #### M ISC1 ####NON-INTERFACED REF LABSCLIA SEE SCANNED RESULTS TEST RESULTS 1 View results in Scan vand[employer] Documents link when available. Normal [facility] Comment on above: Order Comment: Speci men Type: BLOOD SPECIMENOrdering Facility: [facility] Address: [address] [place] [address] Performed By: #### M ISC1 ####NON-INTERFACED REF LABSCLIA SEE SCANNED RESULTS CBC W Auto Differential pane l (Bld)on 04-08-2023 Basophils (Bld) [#/Vol] 10*3/uL Normal <0.11 [facility] Comment on above: Order Comment: Speci men Type: BLOOD SPECIMENOrdering Facility: [facility] Address: [address] [place] [address] Performed By: #### 5 7021-8 ####[facility] LABCLIA [id number] [place] [address] Basophils/100 WBC (Bld) 0.5 % Normal [facility] Comment on above: Order Comment: Speci men Type: BLOOD SPECIMENOrdering Facility: [facility] Address: [address] [place] [address] Performed By: #### 5 7021-8 ####[facility] LABCLIA [id number] [place] [address] Differential cell count method Nom (Bld) Auto Normal [facility] Comment on above: Order Comment: Speci men Type: BLOOD SPECIMENOrdering Facility: [facility] Address: [address] [place] [address] Performed By: #### 5 7021-8 ####[facility] LABCLIA [id number] [place] [address] Eosinophils (Bld) [#/Vol] 0.03 10*3/uL Normal <0.46 [facility] Comment on above: Order Comment: Speci men Type: BLOOD SPECIMENOrdering Facility: [facility] Address: [address] [place] [address] Performed By: #### 5 7021-8 ####[facility] LABCLIA [id number] [place] [address] Eosinophils/100 WBC (Bld) 0.8 % Normal [facility] Comment on above: Order Comment: Speci men Type: BLOOD SPECIMENOrdering Facility: [facility] Address: [address] [place] [address] Performed By: #### 5 7021-8 ####[facility] LABCLIA [id number] [place] [address] Erythrocyte distribution wid th (RBC) [Ratio] 13.6 % Normal 11.5-15.0 [facility] Comment on above: Order Comment: Speci men Type: BLOOD SPECIMENOrdering Facility: [facility] Address: [address] [place] [address] Performed By: #### 5 7021-8 ####[facility] LABCLIA [id number] [place] [address] Hematocrit (Bld) [Volume fraction] 34.9 % Low 3 6.0-46.0 [facility] Comment on above: Order Comment: Speci men Type: BLOOD SPECIMENOrdering Facility: [facility] Address: [address] [place] [address] Performed By: #### 5 7021-8 ####[facility] LABCLIA [id number] [place] [address] Hemoglobin (Bld) [Mass/Vol] 11.9 g/dL Normal 11.5-15. 5 [facility] Comment on above: Order Comment: Speci men Type: BLOOD SPECIMENOrdering Facility: [facility] Address: [address] [place] [address] Performed By: #### 5 7021-8 ####[facility] LABCLIA [id number] [place] [address] Immature granulocytes (Bld) [#/Vol] 10*3/uL Normal <0.10 [facility] Comment on above: Order Comment: Speci men Type: BLOOD SPECIMENOrdering Facility: [facility] Address: [address] [place] [address] Performed By: #### 5 7021-8 ####[facility] LABCLIA [id number] [place] [address] Immature granulocytes/100 WBC (Bld) 0.3 % Normal [facility] Comment on above: Order Comment: Speci men Type: BLOOD SPECIMENOrdering Facility: [facility] Address: [address] [place] [address] Performed By: #### 5 7021-8 ####[facility] LABCLIA [id number] [place] [address] Lymphocytes (Bld) [#/Vol] 1.45 10*3/uL Normal 1.00-4.0 0 [facility] Comment on above: Order Comment: Speci men Type: BLOOD SPECIMENOrdering Facility: [facility] Address: [address] [place] [address] Performed By: #### 5 7021-8 ####[facility] LABIA [id number] [place] [address] Lymphocytes/100 WBC (Bld) 39.8 % Normal [facility] Comment on above: Order Comment: Speci men Type: BLOOD SPECIMENOrdering Facility: [facility] Address: [address] [place] [address] Performed By: #### 5 7021-8 ####[facility] LABCLIA [id number] [place] [address] MCH (RBC) [Entitic mass] 30.1 pg Normal 26.0-34.0 [facility] Comment on above: Order Comment: Speci men Type: BLOOD SPECIMENOrdering Facility: [facility] Address: [address] [place] [address] Performed By: #### 5 7021-8 ####[facility] LABIA [id number] [place] [address] MCHC (RBC) [Mass/Vol] 34.1 g/dL Normal 30.5-36.0 [facility] Comment on above: Order Comment: Speci men Type: BLOOD SPECIMENOrdering Facility: [facility] Address: [address] [place], [place] [address] Performed By: #### 5 7021-8 ####[facility] LABCLIA [id number] [place] [address] MCV (RBC) [Entitic vol] 88.1 fL Normal 80.0-100.0 [facility] Comment on above: Order Comment: Speci men Type: BLOOD SPECIMENOrdering Facility: [facility] Address: [address] [place] [address] Performed By: #### 5 7021-8 ####[facility] LABCLIA [id number] [place] [address] Monocytes (Bld) [#/Vol] 0.23 10*3/uL Normal <0.87 [facility] Comment on above: Order Comment: Speci men Type: BLOOD SPECIMENOrdering Facility: [facility] Address: [address] [place] [address] Performed By: #### 5 7021-8 ####[facility] LABCLIA [id number] [place] [address] Monocytes/100 WBC (Bld) 6.3 % Normal [facility] Comment on above: Order Comment: Speci men Type: BLOOD SPECIMENOrdering Facility: [facility] Address: [address] [place] [address] Performed By: #### 5 7021-8 ####[facility] LABCLIA [id number] [place] [address] Neutrophils (Bld) [#/Vol] 1.90 10*3/uL Normal 1.45-7.5 0 [facility] Comment on above: Order Comment: Speci men Type: BLOOD SPECIMENOrdering Facility: [facility] Address: [address] [place] [address] Performed By: #### 5 7021-8 ####[facility] LABCLIA [id number] [place] [address] Neutrophils/100 WBC (Bld) 52.3 % Normal [facility] Comment on above: Order Comment: Speci men Type: BLOOD SPECIMENOrdering Facility: [facility] Address: [address] [place] [address] Performed By: #### 5 7021-8 ####[facility] LABCLIA [id number] [place] [address] Nucleated RBC (Bld) [#/Vol] 10*3/uL Normal <0.01 [facility] Comment on above: Order Comment: Speci men Type: BLOOD SPECIMENOrdering Facility: [facility] Address: [address] [place] [address] Performed By: #### 5 7021-8 ####[facility] LABCLIA [id number] [place] [address] Nucleated RBC/100 WBC (Bld) [Ratio] 0.0 /100 WBC Normal [facility] Comment on above: Order Comment: Speci men Type: BLOOD SPECIMENOrdering Facility: [facility] Address: [address] [place] [address] Performed By: #### 5 7021-8 ####[facility] LABCLIA [id number] [place] [address] Platelet mean volume (Bld) [ Entitic vol] 9.4 fL Normal 9.0-12.7 [facility] Comment on above: Order Comment: Speci men Type: BLOOD SPECIMENOrdering Facility: [facility] Address: [address] [place] [address] Performed By: #### 5 7021-8 ####[facility] LABCLIA [id number] [place] [address] Platelets (Bld) [#/Vol] 351 10*3/uL Normal 150-400 [facility] Comment on above: Order Comment: Speci men Type: BLOOD SPECIMENOrdering Facility: [facility] Address: [address] [place] [address] Performed By: #### 5 7021-8 ####[facility] LABCLIA [id number] [place] [address] RBC (Bld) [#/Vol] 3.96 10*6/uL Normal 3.90-5.20 [facility] Comment on above: Order Comment: Speci men Type: BLOOD SPECIMENOrdering Facility: [facility] Address: [address] [place] [address] Performed By: #### 5 7021-8 ####[facility] LABIA [id number] [place] [id number] WBC (Bld) [#/Vol] 3.64 10*3/uL Low 3.70-11.00 [facility] Comment on above: Order Comment: Speci men Type: BLOOD SPECIMENOrdering Facility: [facility] Address: [address] [place] [address] Performed By: #### 5 7021-8 ####[facility] [id number] [place] [id number] Basophils (Bld) [#/Vol] <0.11 k/uL [facility] Basophils/100 WBC (Bld) 0.5 % [facility] Differential cell count meth od Nom (Bld) Auto [facility] Eosinophils (Bld) [#/Vol] 0.03 10*3/uL <0.46 k/ uL [facility] Eosinophils/100 WBC (Bld) 0.8 % [facility] Erythrocyte distribution wid th (RBC) [Ratio] 13.6 % 11.5 - 15.0 % [facility] Hematocrit (Bld) [Volume fraction] 34.9 % Low 36.0 - 46.0 % [facility] Hemoglobin (Bld) [Mass/Vol] 11.9 g/dL 11.5 - 1 5.5 g/dL [facility] Immature granulocytes (Bld) [#/Vol] <0.10 k/uL [facility] Immature granulocytes/100 WB C (Bld) 0.3 % [facility] Lymphocytes (Bld) [#/Vol] 1.45 10*3/uL 1.00 - 4 .00 k/uL [facility] Lymphocytes/100 WBC (Bld) 39.8 % [facility] MCH (RBC) [Entitic mass] 30.1 pg 26.0 - 34.0 pg [facility] MCHC (RBC) [Mass/Vol] 34.1 g/dL 30.5 - 36.0 g/ dL [facility] MCV (RBC) [Entitic vol] 88.1 fL 80.0 - 100.0 fL [facility] Monocytes (Bld) [#/Vol] 0.23 10*3/uL <0.87 k/uL [facility] Monocytes/100 WBC (Bld) 6.3 % C [facility] Neutrophils (Bld) [#/Vol] 1.90 10*3/uL 1.45 - 7 .50 k/uL [facility] Neutrophils/100 WBC (Bld) 52.3 % [facility] Nucleated RBC (Bld) [#/Vol] <0.01 k/ uL [facility] Nucleated RBC/100 WBC (Bld) [Ratio] 0.0 /100 WBC [facility] Platelet mean volume (Bld) [Entitic vol] 9.4 fL 9.0 - 12.7 fL [facility] Platelets (Bld) [#/Vol] 351 10*3/uL 150 - 400 k /uL [facility] RBC (Bld) [#/Vol] 3.96 10*6/uL 3.90 - 5.20 m/uL [facility] WBC (Bld) [#/Vol] 3.64 10*3/uL Low 3.70 - 11.00 k/u L [facility] CNOVSPon 04-08-2023 CNOVSP Normal [facility] metabolic 2000 panelon 04-08-2023 Albumin [Mass/Vol] 4.5 g/dL Normal 3.9-4.9 [facility] Comment on above: Order Comment: Speci men Type: BLOOD SPECIMENOrdering Facility: [facility] Address: [address] [place] [address] Performed By: #### 2 4323-8 ####[facility] LABCLIA [id number] [place] [address] ALP [Catalytic activity/Vol] 111 U/L Normal 34-123 [facility] Comment on above: Order Comment: Speci men Type: BLOOD SPECIMENOrdering Facility: [facility] Address: [address] [place] [address] Performed By: #### 2 4323-8 ####[facility] LABCLIA [id number] [place] [address] ALT [Catalytic activity/Vol] 75 U/L High 7-38 [facility] Comment on above: Order Comment: Speci men Type: BLOOD SPECIMENOrdering Facility: [facility] Address: [address] [place] [address] Performed By: #### 2 4323-8 ####[facility] LABCLIA [id number] [place] [address] Anion gap [Moles/Vol] 10 mmol/L Normal 9-18 [facility] Comment on above: Order Comment: Speci men Type: BLOOD SPECIMENOrdering Facility: [facility] Address: [address] [place] [address] Performed By: #### 2 4323-8 ####[facility] LABCLIA [id number] [place] [address] AST [Catalytic activity/Vol] 59 U/L High 13-35 [facility] Comment on above: Order Comment: Speci men Type: BLOOD SPECIMENOrdering Facility: [facility] Address: [address] [place] [address] Performed By: #### 2 4323-8 ####[facility] LABCLIA [id number] [place] [address] Bilirubin [Mass/Vol] 0.4 mg/dL Normal 0.2-1.[address] [facility] Comment on above: Order Comment: Speci men Type: BLOOD SPECIMENOrdering Facility: [facility] Address: [address] [place] [address] Performed By: #### 2 4323-8 ####[facility] LABCLIA [id number] [place] [address] Calcium [Mass/Vol] 9.8 mg/dL Normal 8.5-10.2 [facility] Comment on above: Order Comment: Speci men Type: BLOOD SPECIMENOrdering Facility: [facility] Address: [address] [place] [address] Performed By: #### 2 4323-8 ####[facility] LABCLIA [id number] [place] [address] Chloride [Moles/Vol] 103 mmol/L Normal 97-[address] [facility] Comment on above: Order Comment: Speci men Type: BLOOD SPECIMENOrdering Facility: [facility] Address: [address] [place] [address] Performed By: #### 2 4323-8 ####[facility] LABCLIA [id number] [place] [address] CO2 [Moles/Vol] 26 mmol/L Normal 22-30 [facility] Comment on above: Order Comment: Speci men Type: BLOOD SPECIMENOrdering Facility: [facility] Address: [address] [place] [address] Performed By: #### 2 4323-8 ####[facility] LABCLIA [id number] [place] [address] Creatinine [Mass/Vol] 0.76 mg/dL Normal 0.58-0.96 [facility] Comment on above: Order Comment: Speci men Type: BLOOD SPECIMENOrdering Facility: [facility] Address: [address] [place] [address] Performed By: #### 2 4323-8 ####[facility] LABCLIA [id number] [place] [address] Creatinine and Glomerular filtration rate.predicted panel (S/P/Bld) 87 mL/min/1.73m??? Normal >=[address] [facility] Comment on above: Order Comment: Speci men Type: BLOOD SPECIMENOrdering Facility: [facility] Address: [address] [place] [address] Result Comment: Julita mated Glomerular Filtration Rate (eGFR) is calculated using the 2020 CKD-EPI creatinine equation. This equation utilizes serum creatinine, sex, and age as parameters. The creatinine assay has traceable calibration to isotope dilution-mass spectrometry. Refer to KDIGO guidelines for clinical interpretation. In patients with unstable renal function, e.g. those with acute kidney injury, the eGFR may not accurately reflect actual GFR. Performed By: #### 2 4323-8 ####[facility] LABCLIA [id number] [place] [address] Glucose [Mass/Vol] 214 mg/dL High 74-99 [facility] Comment on above: Order Comment: Speci men Type: BLOOD SPECIMENOrdering Facility: [facility] Address: [address] [place] [address] Result Comment: The [place] Diabetes [employer] (ADA) provides guidance for cutoff values for fasting glucose and random glucose. The ADA defines fasting as no caloric intake for at least 8 hours. Fasting plasma glucose results between 100 to 125 mg/dL indicate increased risk for diabetes (prediabetes).Fasting plasma glucose results greater than or equal to 126 mg/dL meet the criteria for diagnosis of diabetes. In the absence of unequivocal hyperglycemia, results should be confirmed by repeat testing. In a patient with classic symptoms of hyperglycemia or hyperglycemic crisis, random plasma glucose results greater than or equal to 200 mg/dL meet the criteria for diagnosis of diabetes.Reference: Standards of Medical Care in Diabetes 2016, [place] Diabetes Association. Diabetes Care. 2016.39(Suppl 1). Performed By: #### 2 4323-8 ####[facility] LABCLIA [id number] [place] [address] Potassium [Moles/Vol] 4.0 mmol/L Normal 3.7-5.1 [facility] Comment on above: Order Comment: Speci men Type: BLOOD SPECIMENOrdering Facility: [facility] Address: [address] [place] [address] Performed By: #### 2 4323-8 ####[facility] LABCLIA [id number] [place] [address] Protein [Mass/Vol] 7.0 g/dL Normal 6.3-8.0 [facility] Comment on above: Order Comment: Speci men Type: BLOOD SPECIMENOrdering Facility: [facility] Address: [address] [place] [address] Performed By: #### 2 4323-8 ####[facility] LABCLIA [id number] [place] [address] Sodium [Moles/Vol] 139 mmol/L Normal 136-144 [facility] Comment on above: Order Comment: Speci men Type: BLOOD SPECIMENOrdering Facility: [facility] Address: [address] [place] [address] Performed By: #### 2 4323-8 ####[facility] LABCLIA [id number] [place] [address] Urea nitrogen [Mass/Vol] 15 mg/dL Normal 7-21 [facility] Comment on above: Order Comment: Speci men Type: BLOOD SPECIMENOrdering Facility: [facility] Address: [address] [place] [address] Performed By: #### 2 4323-8 ####[facility] LABCLIA [id number] [place] [address] Albumin [Mass/Vol] 4.5 g/dL 3.9 - 4.9 g/dL [facility] ALP [Catalytic activity/Vol] 111 U/L 34 - 12 3 U/L [facility] ALT [Catalytic activity/Vol] 75 U/L High 7 - 38 U/L [facility] Anion gap [Moles/Vol] 10 mmol/L 9 - 18 mmol/L [facility] AST [Catalytic activity/Vol] 59 U/L High 13 - 35 U/L [facility] Bilirubin [Mass/Vol] 0.4 mg/dL 0.2 - 1.3 mg/dL [facility] Calcium [Mass/Vol] 9.8 mg/dL 8.5 - 10.2 mg/dL [facility] Chloride [Moles/Vol] 103 mmol/L 97 - 105 mmol/L [facility] CO2 [Moles/Vol] 26 mmol/L 22 - 30 mmol/L [facility] Creatinine [Mass/Vol] 0.76 mg/dL 0.58 - 0.96 mg /dL [facility] Estimated Glomerular Filtration Rate 87 mL/min/1.73m >=60 mL/min/1.73m [facility] Glucose [Mass/Vol] 214 mg/dL High 74 - 99 mg/dL [facility] Potassium [Moles/Vol] 4.0 mmol/L 3.7 - 5.1 mmol /L [facility] Protein [Mass/Vol] 7.0 g/dL 6.3 - 8.0 g/dL [facility] Sodium [Moles/Vol] 139 mmol/L 136 - 144 mmol/L [facility] Urea nitrogen [Mass/Vol] 15 mg/dL 7 - 21 mg/d L [facility] Cortis SerPl-mCncon 04-08-20 Cortisol [Mass/Vol] 8.4 ug/dL Normal 4.8-19.5 [facility] Comment on above: Order Comment: Speci men Type: BLOOD SPECIMENOrdering Facility: [facility] Address: [address] [place] [address] Result Comment: Prov ided reference range is from 6-10 AM sample collection time.Cortisol Reference Range: 6-10 AM = 4.8-19.5 ug/dL, 4-8 PM = 2.5-11.9 ug/dL Performed By: #### 2 143-6, 3016-3 ####[facility] LABCLIA [id number] [address] [place] HbA1c (Bld)on 04-08-2023 Average glucose Estimated fr om glycated hemoglobin (Bld) [Mass/Vol] 243 mg/dL Normal [facility] Comment on above: Order Comment: Speci men Type: BLOOD SPECIMENOrdering Facility: [facility] Address: [address] [place] [address] Result Comment: eAG: (Estimated average glucose) is a calculated value from HgbA1c and is circulation sales representative of the average blood glucose level in the last 2-3 month period. Performed By: #### 5 5454-3 ####[facility] LABCLIA [id number] [place] [address] [place] HbA1c (Bld) [Mass fraction] 10.1 % High 4.3-5.6 [facility] Comment on above: Order Comment: Speci men Type: BLOOD SPECIMENOrdering Facility: [facility] Address: [address] [place] [address] Result Comment: [place] Diabetes Association guidelines indicate that patients with HgbA1c in the range 5.7-6.4% are at increased risk for development of diabetes, and intervention by lifestyle modification may be beneficial. HgbA1c greater or equal to 6.5% is considered diagnostic of diabetes. Performed By: #### 5 5454-3 ####[facility] LABCLIA [id number] [place] [address] [place] TSH SerPl-aCncon 04-08-2023 TSH Qn 1.330 m[IU]/L Normal 0.270-4.200 [facility] Comment on above: Order Comment: Speci men Type: BLOOD SPECIMENOrdering Facility: [facility] Address: [address] [place] [address] Performed By: #### 2 143-6, 3016-3 ####[facility] LABCLIA [id number] [address] [place] CBC W Auto Differential pane l (Bld)on 04-01-2023 Basophils (Bld) [#/Vol] 0.03 10*3/uL Normal <0.11 [facility] Comment on above: Order Comment: Speci men Type: BLOOD SPECIMENOrdering Facility: [facility] Address: [address] [place] [address] Performed By: #### 5 7021-8 ####[facility] LABCLIA [id number] [place] [address] Basophils/100 WBC (Bld) 0.7 % Normal [facility] Comment on above: Order Comment: Speci men Type: BLOOD SPECIMENOrdering Facility: [facility] Address: [address] [place] [address] Performed By: #### 5 7021-8 ####[facility] LABCLIA [id number] [place] [address] Differential cell count method Nom (Bld) Auto Normal [facility] Comment on above: Order Comment: Speci men Type: BLOOD SPECIMENOrdering Facility: [facility] Address: [address] [place] [address] Performed By: #### 5 7021-8 ####[facility] LABCLIA [id number] [place] [address] Eosinophils (Bld) [#/Vol] 0.05 10*3/uL Normal <0.46 [facility] Comment on above: Order Comment: Speci men Type: BLOOD SPECIMENOrdering Facility: [facility] Address: [address] [place] [address] Performed By: #### 5 7021-8 ####[facility] LABCLIA [id number] [place] [address] Eosinophils/100 WBC (Bld) 1.1 % Normal [facility] Comment on above: Order Comment: Speci men Type: BLOOD SPECIMENOrdering Facility: [facility] Address: [address] [place] [address] Performed By: #### 5 7021-8 ####[facility] LABCLIA [id number] [place] [address] Erythrocyte distribution wid th (RBC) [Ratio] 13.0 % Normal 11.5-15.0 [facility] Comment on above: Order Comment: Speci men Type: BLOOD SPECIMENOrdering Facility: [facility] Address: [address] [place] [address] Performed By: #### 5 7021-8 ####[facility] LABIA [id number] [place] [address] Hematocrit (Bld) [Volume fraction] 35.9 % Low 3 6.0-46.0 [facility] Comment on above: Order Comment: Speci men Type: BLOOD SPECIMENOrdering Facility: [facility] Address: [address] [place] [address] Performed By: #### 5 7021-8 ####[facility] LABCLIA [id number] [place] [address] Hemoglobin (Bld) [Mass/Vol] 12.1 g/dL Normal 11.5-15. 5 [facility] Comment on above: Order Comment: Speci men Type: BLOOD SPECIMENOrdering Facility: [facility] Address: [address] [place] [address] Performed By: #### 5 7021-8 ####[facility] LABCLIA [id number] [place] [address] Immature granulocytes (Bld) [#/Vol] 10*3/uL Normal <0.10 [facility] Comment on above: Order Comment: Speci men Type: BLOOD SPECIMENOrdering Facility: [facility] Address: [address] [place] [address] Performed By: #### 5 7021-8 ####[facility] LABCLIA [id number] [place] [address] Immature granulocytes/100 WBC (Bld) 0.2 % Normal [facility] Comment on above: Order Comment: Speci men Type: BLOOD SPECIMENOrdering Facility: [facility] Address: [address] [place] [address] Performed By: #### 5 7021-8 ####[facility] LABCLIA [id number] [place] [address] Lymphocytes (Bld) [#/Vol] 1.53 10*3/uL Normal 1.00-4.0 0 [facility] Comment on above: Order Comment: Speci men Type: BLOOD SPECIMENOrdering Facility: [facility] Address: [address] [place] [address] Performed By: #### 5 7021-8 ####[facility] LABCLIA [id number] [place] [address] Lymphocytes/100 WBC (Bld) 33.8 % Normal [facility] Comment on above: Order Comment: Speci men Type: BLOOD SPECIMENOrdering Facility: [facility] Address: [address] [place] [address] Performed By: #### 5 7021-8 ####[facility] LABCLIA [id number] [place] [address] MCH (RBC) [Entitic mass] 29.4 pg Normal 26.0-34.0 [facility] Comment on above: Order Comment: Speci men Type: BLOOD SPECIMENOrdering Facility: [facility] Address: [address] [place] [address] Performed By: #### 5 7021-8 ####[facility] LABCLIA [id number] [place] [address] MCHC (RBC) [Mass/Vol] 33.7 g/dL Normal 30.5-36.0 [facility] Comment on above: Order Comment: Speci men Type: BLOOD SPECIMENOrdering Facility: [facility] Address: [address] [place] [address] Performed By: #### 5 7021-8 ####[facility] LABIA [id number] [place] [address] MCV (RBC) [Entitic vol] 87.3 fL Normal 80.0-100.0 [facility] Comment on above: Order Comment: Speci men Type: BLOOD SPECIMENOrdering Facility: [facility] Address: [address] [place] [address] Performed By: #### 5 7021-8 ####[facility] LABIA [id number] [place] [address] Monocytes (Bld) [#/Vol] 0.26 10*3/uL Normal <0.87 [facility] Comment on above: Order Comment: Speci men Type: BLOOD SPECIMENOrdering Facility: [facility] Address: [address] [place] [address] Performed By: #### 5 7021-8 ####[facility] LABCLIA [id number] [place] [address] Monocytes/100 WBC (Bld) 5.7 % Normal [facility] Comment on above: Order Comment: Speci men Type: BLOOD SPECIMENOrdering Facility: [facility] Address: [address] [place] [address] Performed By: #### 5 7021-8 ####[facility] LABCLIA [id number] [place] [address] Neutrophils (Bld) [#/Vol] 2.65 10*3/uL Normal 1.45-7.5 0 [facility] Comment on above: Order Comment: Speci men Type: BLOOD SPECIMENOrdering Facility: [facility] Address: [address] [place] [address] Performed By: #### 5 7021-8 ####[facility] LABCLIA [id number] [place] [address] Neutrophils/100 WBC (Bld) 58.5 % Normal [facility] Comment on above: Order Comment: Speci men Type: BLOOD SPECIMENOrdering Facility: [facility] Address: [address] [place] [address] Performed By: #### 5 7021-8 ####[facility] LABCLIA [id number] [place] [address] Nucleated RBC (Bld) [#/Vol] 10*3/uL Normal <0.01 [facility] Comment on above: Order Comment: Speci men Type: BLOOD SPECIMENOrdering Facility: [facility] Address: [address] [place] [address] Performed By: #### 5 7021-8 ####[facility] LABIA [id number] [place] [address] Nucleated RBC/100 WBC (Bld) [Ratio] 0.0 /100 WBC Normal [facility] Comment on above: Order Comment: Speci men Type: BLOOD SPECIMENOrdering Facility: [facility] Address: [address] [place] [address] Performed By: #### 5 7021-8 ####[facility] LABCLIA [id number] [place] [address] Platelet mean volume (Bld) [ Entitic vol] 9.9 fL Normal 9.0-12.7 [facility] Comment on above: Order Comment: Speci men Type: BLOOD SPECIMENOrdering Facility: [facility] Address: [address] [place] [address] Performed By: #### 5 7021-8 ####[facility] LABCLIA [id number] [place] [address] Platelets (Bld) [#/Vol] 300 10*3/uL Normal 150-400 [facility] Comment on above: Order Comment: Speci men Type: BLOOD SPECIMENOrdering Facility: [facility] Address: [address] [place] [address] Performed By: #### 5 7021-8 ####[facility] LABCLIA [id number] [place] [address] RBC (Bld) [#/Vol] 4.11 10*6/uL Normal 3.90-5.20 [facility] Comment on above: Order Comment: Speci men Type: BLOOD SPECIMENOrdering Facility: [facility] Address: [address] [place] [address] Performed By: #### 5 7021-8 ####[facility] LABCLIA [id number] [place] [address] WBC (Bld) [#/Vol] 4.53 10*3/uL Normal 3.70-11.00 [facility] Comment on above: Order Comment: Speci men Type: BLOOD SPECIMENOrdering Facility: [facility] Address: [address] [place] [address] Performed By: #### 5 7021-8 ####[facility] LABCLIA [id number] [place] [address] Comprehensive metabolic 2000 panelon 04-01-2023 Albumin [Mass/Vol] 4.2 g/dL Normal 3.9-4.9 [facility] Comment on above: Order Comment: Speci men Type: BLOOD SPECIMENOrdering Facility: [facility] Address: [address] [place] [address] Performed By: #### 2 4323-8 ####[facility] LABCLIA [id number] [place] [address] ALP [Catalytic activity/Vol] 121 U/L Normal 34-123 [facility] Comment on above: Order Comment: Speci men Type: BLOOD SPECIMENOrdering Facility: [facility] Address: [address] [place] [address] Performed By: #### 2 4323-8 ####[facility] LABCLIA [id number] [place] [address] ALT [Catalytic activity/Vol] 74 U/L High 7-38 [facility] Comment on above: Order Comment: Speci men Type: BLOOD SPECIMENOrdering Facility: [facility] Address: [address] [place] [address] Performed By: #### 2 4323-8 ####[facility] LABCLIA [id number] [place] [address] Anion gap [Moles/Vol] 12 mmol/L Normal 9-18 [facility] Comment on above: Order Comment: Speci men Type: BLOOD SPECIMENOrdering Facility: [facility] Address: [address] [place] [address] Performed By: #### 2 4323-8 ####[facility] LABCLIA [id number] [place] [address] AST [Catalytic activity/Vol] 48 U/L High 13-35 [facility] Comment on above: Order Comment: Speci men Type: BLOOD SPECIMENOrdering Facility: [facility] Address: [address] [place] [address] Performed By: #### 2 4323-8 ####[facility] LABCLIA [id number] [place] [address] Bilirubin [Mass/Vol] 0.3 mg/dL Normal 0.2-1.[address] [facility] Comment on above: Order Comment: Speci men Type: BLOOD SPECIMENOrdering Facility: [facility] Address: [address] [place] [address] Performed By: #### 2 4323-8 ####[facility] LABCLIA [id number] [place] [address] Calcium [Mass/Vol] 9.5 mg/dL Normal 8.5-10.2 [facility] Comment on above: Order Comment: Speci men Type: BLOOD SPECIMENOrdering Facility: [facility] Address: [address] [place] [address] Performed By: #### 2 4323-8 ####[facility] LABCLIA [id number] [place] [address] Chloride [Moles/Vol] 105 mmol/L Normal 97-[address] [facility] Comment on above: Order Comment: Speci men Type: BLOOD SPECIMENOrdering Facility: [facility] Address: [address] [place] [address] Performed By: #### 2 4323-8 ####[facility] LABCLIA [id number] [place] [address] CO2 [Moles/Vol] 22 mmol/L Normal 22-30 [facility] Comment on above: Order Comment: Speci men Type: BLOOD SPECIMENOrdering Facility: [facility] Address: [address] [place] [address] Performed By: #### 2 4323-8 ####[facility] LABCLIA [id number] [place] [address] Creatinine [Mass/Vol] 0.71 mg/dL Normal 0.58-0.96 [facility] Comment on above: Order Comment: Speci men Type: BLOOD SPECIMENOrdering Facility: [facility] Address: [address] [place] [address] Performed By: #### 2 4323-8 ####[facility] LABIA [id number] [place] [address] Creatinine and Glomerular filtration rate.predicted panel (S/P/Bld) 94 mL/min/1.73m??? Normal >=[address] [facility] Comment on above: Order Comment: Mahamed huynh Type: BLOOD SPECIMENOrdering Facility: [facility] Address: [address] [place] [address] Result Comment: Julita mated Glomerular Filtration Rate (eGFR) is calculated using the 2020 CKD-EPI creatinine equation. This equation utilizes serum creatinine, sex, and age as parameters. The creatinine assay has traceable calibration to isotope dilution-mass spectrometry. Refer to KDIGO guidelines for clinical interpretation. In patients with unstable renal function, e.g. those with acute kidney injury, the eGFR may not accurately reflect actual GFR. Performed By: #### 2 4323-8 ####[facility] LABCLIA [id number] [place] [address] Glucose [Mass/Vol] 268 mg/dL High 74-99 [facility] Comment on above: Order Comment: Mahamed huynh Type: BLOOD SPECIMENOrdering Facility: [facility] Address: [address] [place] [address] Result Comment: The [place] Diabetes Association (ADA) provides guidance for cutoff values for fasting glucose and random glucose. The ADA defines fasting as no caloric intake for at least 8 hours. Fasting plasma glucose results between 100 to 125 mg/dL indicate increased risk for diabetes (prediabetes).Fasting plasma glucose results greater than or equal to 126 mg/dL meet the criteria for diagnosis of diabetes. In the absence of unequivocal hyperglycemia, results should be confirmed by repeat testing. In a patient with classic symptoms of hyperglycemia or hyperglycemic crisis, random plasma glucose results greater than or equal to 200 mg/dL meet the criteria for diagnosis of diabetes.Reference: Standards of Medical Care in Diabetes 2016, [place] Diabetes Association. Diabetes Care. 2016.39(Suppl 1). Performed By: #### 2 4323-8 ####[facility] LABCLIA [id number] [place] [address] Potassium [Moles/Vol] 4.3 mmol/L Normal 3.7-5.1 [facility] Comment on above: Order Comment: Speci men Type: BLOOD SPECIMENOrdering Facility: [facility] Address: [address] [place] [address] Performed By: #### 2 4323-8 ####[facility] LABCLIA [id number] [place] [address] Protein [Mass/Vol] 6.7 g/dL Normal 6.3-8.0 [facility] Comment on above: Order Comment: Speci men Type: BLOOD SPECIMENOrdering Facility: [facility] Address: [address] [place] [address] Performed By: #### 2 4323-8 ####[facility] LABCLIA [id number] [place] [address] Sodium [Moles/Vol] 139 mmol/L Normal 136-144 [facility] Comment on above: Order Comment: Speci men Type: BLOOD SPECIMENOrdering Facility: [facility] Address: [address] [place] [address] Performed By: #### 2 4323-8 ####[facility] LABCLIA [id number] [place] [address] Urea nitrogen [Mass/Vol] 19 mg/dL Normal 7-21 [facility] Comment on above: Order Comment: Speci men Type: BLOOD SPECIMENOrdering Facility: [facility] Address: [address] [place] [address] Performed By: #### 2 4323-8 ####[facility] LABIA [id number] [place] [address] ALLIED HEALTHon 03-25-2023 ALLIED HEALTH Normal [facility] CBC W Auto Differential pane l (Bld)on 03-25-2023 Basophils (Bld) [#/Vol] 0.03 10*3/uL Normal <0.11 [facility] Comment on above: Order Comment: Speci men Type: BLOOD SPECIMENOrdering Facility: [facility] Address: [address] [place] [address] Performed By: #### 5 7021-8 ####[facility] LABCLIA [id number] [place] [address] Basophils/100 WBC (Bld) 0.6 % Normal [facility] Comment on above: Order Comment: Speci men Type: BLOOD SPECIMENOrdering Facility: [facility] Address: [address] [place] [address] Performed By: #### 5 7021-8 ####[facility] LABCLIA [id number] [place] [address] Differential cell count method Nom (Bld) Auto Normal [facility] Comment on above: Order Comment: Speci men Type: BLOOD SPECIMENOrdering Facility: [facility] Address: [address] [place] [address] Performed By: #### 5 7021-8 ####[facility] LABCLIA [id number] [place] [address] Eosinophils (Bld) [#/Vol] 0.12 10*3/uL Normal <0.46 [facility] Comment on above: Order Comment: Speci men Type: BLOOD SPECIMENOrdering Facility: [facility] Address: [address] [place] [address] Performed By: #### 5 7021-8 ####[facility] LABCLIA [id number] [place] [address] Eosinophils/100 WBC (Bld) 2.2 % Normal [facility] Comment on above: Order Comment: Speci men Type: BLOOD SPECIMENOrdering Facility: [facility] Address: [address] [place] [address] Performed By: #### 5 7021-8 ####[facility] LABCLIA [id number] [place] [address] Erythrocyte distribution wid th (RBC) [Ratio] 12.7 % Normal 11.5-15.0 [facility] [facility] Comment on above: Order Comment: Speci men Type: BLOOD SPECIMENOrdering Facility: [facility] Address: [address] [place] [address] Performed By: #### 5 7021-8 ####[facility] LABCLIA [id number] [place] [address] Hematocrit (Bld) [Volume fraction] 37.7 % Normal 3 6.0-46.0 [facility] Comment on above: Order Comment: Speci men Type: BLOOD SPECIMENOrdering Facility: [facility] Address: [address] [place] [address] Performed By: #### 5 7021-8 ####[facility] LABCLIA [id number] [place] [address] Hemoglobin (Bld) [Mass/Vol] 12.7 g/dL Normal 11.5-15. 5 [facility] Comment on above: Order Comment: Speci men Type: BLOOD SPECIMENOrdering Facility: [facility] Address: [address] [place] [address] Performed By: #### 5 7021-8 ####[facility] LABCLIA [id number] [place] [address] Immature granulocytes (Bld) [#/Vol] 10*3/uL Normal <0.10 [facility] Comment on above: Order Comment: Speci men Type: BLOOD SPECIMENOrdering Facility: [facility] Address: [address] [place] [address] Performed By: #### 5 7021-8 ####[facility] LABCLIA [id number] [place] [address] Immature granulocytes/100 WBC (Bld) 0.4 % Normal [facility] Comment on above: Order Comment: Speci men Type: BLOOD SPECIMENOrdering Facility: [facility] Address: [address] [place] [address] Performed By: #### 5 7021-8 ####[facility] LABCLIA [id number] [place] [address] Lymphocytes (Bld) [#/Vol] 1.43 10*3/uL Normal 1.00-4.0 0 [facility] Comment on above: Order Comment: Speci men Type: BLOOD SPECIMENOrdering Facility: [facility] Address: [address] [place] [address] Performed By: #### 5 7021-8 ####[facility] LABCLIA [id number] [place] [address] Lymphocytes/100 WBC (Bld) 26.7 % Normal [facility] Comment on above: Order Comment: Speci men Type: BLOOD SPECIMENOrdering Facility: [facility] Address: [address] [place] [address] Performed By: #### 5 7021-8 ####[facility] LABCLIA [id number] [place] [address] MCH (RBC) [Entitic mass] 29.3 pg Normal 26.0-34.0 [facility] Comment on above: Order Comment: Speci men Type: BLOOD SPECIMENOrdering Facility: [facility] Address: [address] [place] [address] Performed By: #### 5 7021-8 ####[facility] LABCLIA [id number] [place] [address] MCHC (RBC) [Mass/Vol] 33.7 g/dL Normal 30.5-36.0 [facility] Comment on above: Order Comment: Speci men Type: BLOOD SPECIMENOrdering Facility: [facility] Address: [address] [place] [address] Performed By: #### 5 7021-8 ####[facility] LABCLIA [id number] [place] [address] MCV (RBC) [Entitic vol] 87.1 fL Normal 80.0-100.0 [facility] Comment on above: Order Comment: Speci men Type: BLOOD SPECIMENOrdering Facility: [facility] Address: [address] [place] [address] Performed By: #### 5 7021-8 ####[facility] LABCLIA [id number] [place] [address] Monocytes (Bld) [#/Vol] 0.35 10*3/uL Normal <0.87 [facility] Comment on above: Order Comment: Speci men Type: BLOOD SPECIMENOrdering Facility: [facility] Address: [address] [place] [address] Performed By: #### 5 7021-8 ####[facility] LABCLIA [id number] [place] [address] Monocytes/100 WBC (Bld) 6.5 % Normal [facility] Comment on above: Order Comment: Speci men Type: BLOOD SPECIMENOrdering Facility: [facility] Address: [address] [place] [address] Performed By: #### 5 7021-8 ####[facility] LABCLIA [id number] [place] [address] Neutrophils (Bld) [#/Vol] 3.41 10*3/uL Normal 1.45-7.5 0 [facility] Comment on above: Order Comment: Speci men Type: BLOOD SPECIMENOrdering Facility: [facility] Address: [address] [place] [address] Performed By: #### 5 7021-8 ####[facility] LABCLIA [id number] [place] [address] Neutrophils/100 WBC (Bld) 63.6 % Normal [facility] Comment on above: Order Comment: Speci men Type: BLOOD SPECIMENOrdering Facility: [facility] Address: [address] [place] [address] Performed By: #### 5 7021-8 ####[facility] LABCLIA [id number] [place] [address] Nucleated RBC (Bld) [#/Vol] 10*3/uL Normal <0.01 [facility] Comment on above: Order Comment: Speci men Type: BLOOD SPECIMENOrdering Facility: [facility] Address: [address] [place] [address] Performed By: #### 5 7021-8 ####[facility] LABCLIA [id number] [place] [address] Nucleated RBC/100 WBC (Bld) [Ratio] 0.0 /100 WBC Normal [facility] Comment on above: Order Comment: Speci men Type: BLOOD SPECIMENOrdering Facility: [facility] Address: [address] [place] [address] Performed By: #### 5 7021-8 ####[facility] LABCLIA [id number] [place] [address] Platelet mean volume (Bld) [ Entitic vol] 9.7 fL Normal 9.0-12.7 [facility] Comment on above: Order Comment: Speci men Type: BLOOD SPECIMENOrdering Facility: [facility] Address: [address] [place] [address] Performed By: #### 5 7021-8 ####[facility] LABCLIA [id number] [place] [address] Platelets (Bld) [#/Vol] 314 10*3/uL Normal 150-400 [facility] Comment on above: Order Comment: Speci men Type: BLOOD SPECIMENOrdering Facility: [facility] Address: [address] [place] [address] Performed By: #### 5 7021-8 ####[facility] LABCLIA [id number] [place] [address] RBC (Bld) [#/Vol] 4.33 10*6/uL Normal 3.90-5.20 [facility] Comment on above: Order Comment: Speci men Type: BLOOD SPECIMENOrdering Facility: [facility] Address: [address] [place], [place] [address] [address] Performed By: #### 5 7021-8 ####[facility] LABCLIA [id number] [place] [address] WBC (Bld) [#/Vol] 5.36 10*3/uL Normal 3.70-11.00 [facility] Comment on above: Order Comment: Speci men Type: BLOOD SPECIMENOrdering Facility: [facility] Address: [address] [place] [id number] Performed By: #### 5 7021-8 ####[facility] LABCLIA [id number] [place] [address] Basophils (Bld) [#/Vol] 0.03 10*3/uL <0.11 k/uL [facility] Basophils/100 WBC (Bld) 0.6 % C [facility] Differential cell count meth od Nom (Bld) Auto [facility] Eosinophils (Bld) [#/Vol] 0.12 10*3/uL <0.46 k/ uL [facility] Eosinophils/100 WBC (Bld) 2.2 % [facility] Erythrocyte distribution wid th (RBC) [Ratio] 12.7 % 11.5 - 15.0 % [facility] Hematocrit (Bld) [Volume fraction] 37.7 % 3 6.0 - 46.0 % [facility] Hemoglobin (Bld) [Mass/Vol] 12.7 g/dL 11.5 - 1 5.5 g/dL [facility] Immature granulocytes (Bld) [#/Vol] <0.10 k/uL [facility] Immature granulocytes/100 WBC (Bld) 0.4 % [facility] Lymphocytes (Bld) [#/Vol] 1.43 10*3/uL 1.00 - 4 .00 k/uL [facility] Lymphocytes/100 WBC (Bld) 26.7 % [facility] MCH (RBC) [Entitic mass] 29.3 pg 26.0 - 34.0 pg [facility] MCHC (RBC) [Mass/Vol] 33.7 g/dL 30.5 - 36.0 g/ dL [facility] MCV (RBC) [Entitic vol] 87.1 fL 80.0 - 100.0 fL [facility] Monocytes (Bld) [#/Vol] 0.35 10*3/uL <0.87 k/uL [facility] Monocytes/100 WBC (Bld) 6.5 % [facility] Neutrophils (Bld) [#/Vol] 3.41 10*3/uL 1.45 - 7 .50 k/uL [facility] Neutrophils/100 WBC (Bld) 63.6 % [facility] Nucleated RBC (Bld) [#/Vol] <0.01 k/ uL [facility] Nucleated RBC/100 WBC (Bld) [Ratio] 0.0 /100 WBC [facility] Platelet mean volume (Bld) [ Entitic vol] 9.7 fL 9.0 - 12.7 fL [facility] Platelets (Bld) [#/Vol] 314 10*3/uL 150 - 400 k /uL [facility] RBC (Bld) [#/Vol] 4.33 10*6/uL 3.90 - 5.20 m/uL [facility] WBC (Bld) [#/Vol] 5.36 10*3/uL 3.70 - 11.00 k/u L [facility] CNOVSPon 03-25-2023 CNOVSP Normal [facility] CNPNon 03-25-2023 CNPN Normal [facility] Comprehensive metabolic 2000 panelon 03-25-2023 Albumin [Mass/Vol] 4.3 g/dL Normal 3.9-4.9 [facility] Comment on above: Order Comment: Speci men Type: BLOOD SPECIMENOrdering Facility: [facility] Address: [address] [place] [address] Performed By: #### 2 4323-8 ####[facility] LABCLIA [id number] [place] [address] ALP [Catalytic activity/Vol] 124 U/L High 34-123 [facility] Comment on above: Order Comment: Speci men Type: BLOOD SPECIMENOrdering Facility: [facility] Address: [address] [place] [address] Performed By: #### 2 4323-8 ####[facility] LABCLIA [id number] [place] [address] ALT [Catalytic activity/Vol] 54 U/L High 7-38 [facility] Comment on above: Order Comment: Speci men Type: BLOOD SPECIMENOrdering Facility: [facility] Address: [address] [place] [address] Performed By: #### 2 4323-8 ####[facility] LABCLIA [id number] [place] [address] Anion gap [Moles/Vol] 10 mmol/L Normal 9-18 [facility] Comment on above: Order Comment: Speci men Type: BLOOD SPECIMENOrdering Facility: [facility] Address: [address] [place] [address] Performed By: #### 2 4323-8 ####[facility] LABCLIA [id number] [place] [address] AST [Catalytic activity/Vol] 45 U/L High 13-35 [facility] Comment on above: Order Comment: Speci men Type: BLOOD SPECIMENOrdering Facility: [facility] Address: [address] [place] [address] Performed By: #### 2 4323-8 ####[facility] LABCLIA [id number] [place] [address] Bilirubin [Mass/Vol] 0.3 mg/dL Normal 0.2-1.[address] [facility] Comment on above: Order Comment: Speci men Type: BLOOD SPECIMENOrdering Facility: [facility] Address: [address] [place] [address] Performed By: #### 2 4323-8 ####[facility] LABCLIA [id number] [place] [address] Calcium [Mass/Vol] 9.2 mg/dL Normal 8.5-10.2 [facility] Comment on above: Order Comment: Speci men Type: BLOOD SPECIMENOrdering Facility: [facility] Address: [address] [place] [address] Performed By: #### 2 4323-8 ####[facility] LABCLIA [id number] [place] [address] Chloride [Moles/Vol] 103 mmol/L Normal 97-[address] [facility] Comment on above: Order Comment: Speci men Type: BLOOD SPECIMENOrdering Facility: [facility] Address: [address] [place] [address] Performed By: #### 2 4323-8 ####[facility] LABCLIA [id number] [place] [address] CO2 [Moles/Vol] 25 mmol/L Normal 22-30 [facility] Comment on above: Order Comment: Speci men Type: BLOOD SPECIMENOrdering Facility: [facility] Address: [address] [place] [address] Performed By: #### 2 4323-8 ####[facility] LABCLIA [id number] [place] [address] Creatinine [Mass/Vol] 0.76 mg/dL Normal 0.58-0.96 [facility] Comment on above: Order Comment: Speci men Type: BLOOD SPECIMENOrdering Facility: [facility] Address: [address] [place] [address] Performed By: #### 2 4323-8 ####[facility] LABCLIA [id number] [place] [address] Creatinine and Glomerular filtration rate.predicted panel (S/P/Bld) 87 mL/min/1.73m??? Normal >=[address] [facility] Comment on above: Order Comment: Speci men Type: BLOOD SPECIMENOrdering Facility: [facility] Address: [address] [place] [address] Result Comment: Julita mated Glomerular Filtration Rate (eGFR) is calculated using the 2020 CKD-EPI creatinine equation. This equation utilizes serum creatinine, sex, and age as parameters. The creatinine assay has traceable calibration to isotope dilution-mass spectrometry. Refer to KDIGO guidelines for clinical interpretation. In patients with unstable renal function, e.g. those with acute kidney injury, the eGFR may not accurately reflect actual GFR. Performed By: #### 2 4323-8 ####[facility] LABCLIA [id number] [place] [address] Glucose [Mass/Vol] 407 mg/dL High 74-99 [facility] Comment on above: Order Comment: Speci men Type: BLOOD SPECIMENOrdering Facility: [facility] Address: [address] [place] [address] Result Comment: The [place] Diabetes [employer] (ADA) provides guidance for cutoff values for fasting glucose and random glucose. The ADA defines fasting as no caloric intake for at least 8 hours. Fasting plasma glucose results between 100 to 125 mg/dL indicate increased risk for diabetes (prediabetes).Fasting plasma glucose results greater than or equal to 126 mg/dL meet the criteria for diagnosis of diabetes. In the absence of unequivocal hyperglycemia, results should be confirmed by repeat testing. In a patient with classic symptoms of hyperglycemia or hyperglycemic crisis, random plasma glucose results greater than or equal to 200 mg/dL meet the criteria for diagnosis of diabetes.Reference: Standards of Medical Care in Diabetes 2016, [place] [employer]. Diabetes Care. 2016.39(Suppl 1). Performed By: #### 2 4323-8 ####[facility] LABCLIA [id number] [place] [address] Potassium [Moles/Vol] 4.3 mmol/L Normal 3.7-5.1 [facility] Comment on above: Order Comment: Speci men Type: BLOOD SPECIMENOrdering Facility: [facility] Address: [address] [place] [address] Performed By: #### 2 4323-8 ####[facility] LABCLIA [id number] [place] [address] Protein [Mass/Vol] 6.8 g/dL Normal 6.3-8.0 [facility] Comment on above: Order Comment: Mahamed huynh Type: BLOOD SPECIMENOrdering Facility: [facility] Address: [address] [place] [address] Performed By: #### 2 4323-8 ####[facility] LABCLIA [id number] [place] [address] Sodium [Moles/Vol] 138 mmol/L Normal 136-144 [facility] Comment on above: Order Comment: Speci men Type: BLOOD SPECIMENOrdering Facility: [facility] Address: [address] [place] [address] Performed By: #### 2 4323-8 ####[facility] LABCLIA [id number] [place] [address] Urea nitrogen [Mass/Vol] 16 mg/dL Normal 7-21 [facility] Comment on above: Order Comment: Speci men Type: BLOOD SPECIMENOrdering Facility: [facility] Address: [address] [place] [address] Performed By: #### 2 4323-8 ####[facility] LABCLIA [id number] [place] [id number] Albumin [Mass/Vol] 4.3 g/dL 3.9 - 4.9 g/dL [facility] ALP [Catalytic activity/Vol] 124 U/L High 34 - 12 3 U/L [facility] ALT [Catalytic activity/Vol] 54 U/L High 7 - 38 U/L [facility] Anion gap [Moles/Vol] 10 mmol/L 9 - 18 mmol/L [facility] AST [Catalytic activity/Vol] 45 U/L High 13 - 35 U/L [facility] Bilirubin [Mass/Vol] 0.3 mg/dL 0.2 - 1.3 mg/dL [facility] Calcium [Mass/Vol] 9.2 mg/dL 8.5 - 10.2 mg/dL [facility] Chloride [Moles/Vol] 103 mmol/L 97 - 105 mmol/L [facility] CO2 [Moles/Vol] 25 mmol/L 22 - 30 mmol/L [facility] Creatinine [Mass/Vol] 0.76 mg/dL 0.58 - 0.96 mg /dL [facility] Estimated Glomerular Filtration Rate 87 mL/min/1.73m >=60 mL/min/1.73m [facility] Glucose [Mass/Vol] 407 mg/dL High 74 - 99 mg/dL [facility] Potassium [Moles/Vol] 4.3 mmol/L 3.7 - 5.1 mmol /L [facility] Protein [Mass/Vol] 6.8 g/dL 6.3 - 8.0 g/dL [facility] Sodium [Moles/Vol] 138 mmol/L 136 - 144 mmol/L [facility] Urea nitrogen [Mass/Vol] 16 mg/dL 7 - 21 mg/d L [facility] CNCNPATEDon 03-24-2023 CNCNPATED Normal [facility] CNPNon 03-22-2023 CNPN Normal [facility] CBC W Auto Differential pane l (Bld)on 03-17-2023 Basophils (Bld) [#/Vol] 10*3/uL Normal <0.11 [facility] Comment on above: Order Comment: Speci men Type: BLOOD SPECIMENOrdering Facility: [facility] Address: [address] [place] [address] Performed By: #### 5 7021-8 ####[facility] LABCLIA [id number] [place] [address] Basophils/100 WBC (Bld) 0.3 % Normal [facility] Comment on above: Order Comment: Speci men Type: BLOOD SPECIMENOrdering Facility: [facility] Address: [address] [place] [address] Performed By: #### 5 7021-8 ####[facility] LABCLIA [id number] [place] [address] Differential cell count method Nom (Bld) Auto Normal [facility] Comment on above: Order Comment: Speci men Type: BLOOD SPECIMENOrdering Facility: [facility] Address: [address] [place] [address] Performed By: #### 5 7021-8 ####[facility] LABCLIA [id number] [place] [address] Eosinophils (Bld) [#/Vol] 0.12 10*3/uL Normal <0.46 [facility] Comment on above: Order Comment: Speci men Type: BLOOD SPECIMENOrdering Facility: [facility] Address: [address] [place] [address] Performed By: #### 5 7021-8 ####[facility] LABCLIA [id number] [place] [address] Eosinophils/100 WBC (Bld) 1.8 % Normal [facility] Comment on above: Order Comment: Speci men Type: BLOOD SPECIMENOrdering Facility: [facility] Address: [address] [place] [address] Performed By: #### 5 7021-8 ####[facility] LABCLIA [id number] [place] [address] Erythrocyte distribution wid th (RBC) [Ratio] 12.8 % Normal 11.5-15.0 [facility] Comment on above: Order Comment: Speci men Type: BLOOD SPECIMENOrdering Facility: [facility] Address: [address] [place] [address] Performed By: #### 5 7021-8 ####[facility] LABCLIA [id number] [place] [address] Hematocrit (Bld) [Volume fraction] 38.1 % Normal 3 6.0-46.0 [facility] Comment on above: Order Comment: Speci men Type: BLOOD SPECIMENOrdering Facility: [facility] Address: [address] [place] [address] Performed By: #### 5 7021-8 ####[facility] LABCLIA [id number] [place] [address] Hemoglobin (Bld) [Mass/Vol] 12.7 g/dL Normal 11.5-15. 5 [facility] Comment on above: Order Comment: Speci men Type: BLOOD SPECIMENOrdering Facility: [facility] Address: [address] [place] [address] Performed By: #### 5 7021-8 ####[facility] LABCLIA [id number] [place] [address] Immature granulocytes (Bld) [#/Vol] 10*3/uL Normal <0.10 [facility] Comment on above: Order Comment: Speci men Type: BLOOD SPECIMENOrdering Facility: [facility] Address: [address] [place] [address] Performed By: #### 5 7021-8 ####[facility] LABCLIA [id number] [place] [address] Immature granulocytes/100 WBC (Bld) 0.1 % Normal [facility] Comment on above: Order Comment: Speci men Type: BLOOD SPECIMENOrdering Facility: [facility] Address: [address] [place] [address] Performed By: #### 5 7021-8 ####[facility] LABCLIA [id number] [place] [address] Lymphocytes (Bld) [#/Vol] 2.00 10*3/uL Normal 1.00-4.0 0 [facility] Comment on above: Order Comment: Speci men Type: BLOOD SPECIMENOrdering Facility: [facility] Address: [address] [place] [address] Performed By: #### 5 7021-8 ####[facility] LABCLIA [id number] [place] [address] Lymphocytes/100 WBC (Bld) 29.8 % Normal [facility] Comment on above: Order Comment: Speci men Type: BLOOD SPECIMENOrdering Facility: [facility] Address: [address] [place] [address] Performed By: #### 5 7021-8 ####[facility] LABIA [id number] [place] [address] MCH (RBC) [Entitic mass] 29.3 pg Normal 26.0-34.0 [facility] Comment on above: Order Comment: Speci men Type: BLOOD SPECIMENOrdering Facility: [facility] Address: [address] [place] [address] Performed By: #### 5 7021-8 ####[facility] LABCLIA [id number] [place] [address] MCHC (RBC) [Mass/Vol] 33.3 g/dL Normal 30.5-36.0 [facility] Comment on above: Order Comment: Speci men Type: BLOOD SPECIMENOrdering Facility: [facility] Address: [address] [place] [address] Performed By: #### 5 7021-8 ####[facility] LABCLIA [id number] [place] [address] MCV (RBC) [Entitic vol] 87.8 fL Normal 80.0-100.0 [facility] Comment on above: Order Comment: Speci men Type: BLOOD SPECIMENOrdering Facility: [facility] Address: [address] [place] [address] Performed By: #### 5 7021-8 ####[facility] LABCLIA [id number] [place] [address] Monocytes (Bld) [#/Vol] 0.47 10*3/uL Normal <0.87 [facility] Comment on above: Order Comment: Speci men Type: BLOOD SPECIMENOrdering Facility: [facility] Address: [address] [place] [address] Performed By: #### 5 7021-8 ####[facility] LABCLIA [id number] [place] [address] Monocytes/100 WBC (Bld) 7.0 % Normal [facility] [facility] Comment on above: Order Comment: Speci men Type: BLOOD SPECIMENOrdering Facility: [facility] Address: [address] [place] [address] Performed By: #### 5 7021-8 ####[facility] LABCLIA [id number] [place] [address] Neutrophils (Bld) [#/Vol] 4.10 10*3/uL Normal 1.45-7.5 0 [facility] Comment on above: Order Comment: Speci men Type: BLOOD SPECIMENOrdering Facility: [facility] Address: [address] [place] [address] Performed By: #### 5 7021-8 ####[facility] LABCLIA [id number] [place] [address] Neutrophils/100 WBC (Bld) 61.0 % Normal [facility] Comment on above: Order Comment: Speci men Type: BLOOD SPECIMENOrdering Facility: [facility] Address: [address] [place] [address] Performed By: #### 5 7021-8 ####[facility] LABCLIA [id number] [place] [address] Nucleated RBC (Bld) [#/Vol] 10*3/uL Normal <0.01 [facility] Comment on above: Order Comment: Speci men Type: BLOOD SPECIMENOrdering Facility: [facility] Address: [address] [place] [address] Performed By: #### 5 7021-8 ####[facility] LABCLIA [id number] [place] [address] Nucleated RBC/100 WBC (Bld) [Ratio] 0.0 /100 WBC Normal [facility] Comment on above: Order Comment: Speci men Type: BLOOD SPECIMENOrdering Facility: [facility] Address: [address] [place] [address] Performed By: #### 5 7021-8 ####[facility] LABCLIA [id number] [place] [address] Platelet mean volume (Bld) [Entitic vol] 10.0 fL Normal 9.0-12.7 [facility] Comment on above: Order Comment: Speci men Type: BLOOD SPECIMENOrdering Facility: [facility] Address: [address] [place] [address] Performed By: #### 5 7021-8 ####[facility] LABCLIA [id number] [place] [address] Platelets (Bld) [#/Vol] 281 10*3/uL Normal 150-400 [facility] Comment on above: Order Comment: Speci men Type: BLOOD SPECIMENOrdering Facility: [facility] Address: [address] [place] [address] Performed By: #### 5 7021-8 ####[facility] LABIA [id number] [place] [address] RBC (Bld) [#/Vol] 4.34 10*6/uL Normal 3.90-5.20 [facility] Comment on above: Order Comment: Speci men Type: BLOOD SPECIMENOrdering Facility: [facility] Address: [address] [place] [address] Performed By: #### 5 7021-8 ####[facility] [id number] [place] [address] WBC (Bld) [#/Vol] 6.72 10*3/uL Normal 3.70-11.00 [facility] Comment on above: Order Comment: Speci men Type: BLOOD SPECIMENOrdering Facility: [facility] Address: [address] [place] [address] Performed By: #### 5 7021-8 ####[facility] LABIA [id number] [place] [address] Basophils (Bld) [#/Vol] <0.11 k/uL [facility] Basophils/100 WBC (Bld) 0.3 % C [facility] Differential cell count meth od Nom (Bld) Auto [facility] Eosinophils (Bld) [#/Vol] 0.12 10*3/uL <0.46 k/ uL [facility] Eosinophils/100 WBC (Bld) 1.8 % [facility] Erythrocyte distribution wid th (RBC) [Ratio] 12.8 % 11.5 - 15.0 % [facility] Hematocrit (Bld) [Volume fraction] 38.1 % 3 6.0 - 46.0 % [facility] Hemoglobin (Bld) [Mass/Vol] 12.7 g/dL 11.5 - 1 5.5 g/dL [facility] Immature granulocytes (Bld) [#/Vol] <0.10 k/uL [facility] Immature granulocytes/100 WBC (Bld) 0.1 % [facility] Lymphocytes (Bld) [#/Vol] 2.00 10*3/uL 1.00 - 4 .00 k/uL [facility] Lymphocytes/100 WBC (Bld) 29.8 % [facility] MCH (RBC) [Entitic mass] 29.3 pg 26.0 - 34.0 pg [facility] MCHC (RBC) [Mass/Vol] 33.3 g/dL 30.5 - 36.0 g/ dL [facility] MCV (RBC) [Entitic vol] 87.8 fL 80.0 - 100.0 fL [facility] Monocytes (Bld) [#/Vol] 0.47 10*3/uL <0.87 k/uL [facility] Monocytes/100 WBC (Bld) 7.0 % [facility] Neutrophils (Bld) [#/Vol] 4.10 10*3/uL 1.45 - 7 .50 k/uL [facility] Neutrophils/100 WBC (Bld) 61.0 % [facility] Nucleated RBC (Bld) [#/Vol] <0.01 k/ uL [facility] Nucleated RBC/100 WBC (Bld) [Ratio] 0.0 /100 WBC [facility] Platelet mean volume (Bld) [ Entitic vol] 10.0 fL 9.0 - 12.7 fL [facility] Platelets (Bld) [#/Vol] 281 10*3/uL 150 - 400 k /uL [facility] RBC (Bld) [#/Vol] 4.34 10*6/uL 3.90 - 5.20 m/uL [facility] WBC (Bld) [#/Vol] 6.72 10*3/uL 3.70 - 11.00 k/u L [facility] CNOVSPon 03-17-2023 CNOVSP Normal [facility] CNPNon 03-17-2023 CNPN Normal [facility] CORTISOL BLDon 03-17-2023 Cortisol [Mass/Vol] 9.6 ug/dL 4.8 - 19.5 ug/dL [facility] Cancer Ag15-3 SerPl-aCncon 1 Cancer Ag 15-3 Qn 25.5 U/mL Normal <26.0 [facility] Comment on above: Order Comment: Speci men Type: BLOOD SPECIMENOrdering Facility: [facility] Address: [address] [place] [address] Result Comment: The CA 15-3 test methodology used is the Electrochemiluminescence Immunoassay by [employer]. Results obtained with different methods or kits cannot be used interchangeably. Performed By: #### 6 875-9 ####[facility] LABCLIA [id number] [address] OF [facility] Cancer Ag27-29 SerPl-aCncon 03-17-2023 Cancer Ag 27-29 Qn 30.5 [arb'U]/mL Normal <38.6 [facility] Comment on above: Order Comment: Speci men Type: BLOOD SPECIMENOrdering Facility: [facility] Address: [address] [place] [address] Result Comment: The CA27.29 test was performed using the Siemens Centaur XP chemiluminometric immunoassay method. Results obtained with different assay methods or kits cannot be used interchangeably. Performed By: #### 1 7842-6 ####[facility] LABCLIA [id number] [place] [address] [place] Comprehensive metabolic 2000 panelon 03-17-2023 Albumin [Mass/Vol] 4.3 g/dL Normal 3.9-4.9 [facility] Comment on above: Order Comment: Speci men Type: BLOOD SPECIMENOrdering Facility: [facility] Address: [address] [place] [address] Performed By: #### 2 4323-8 ####[facility] LABCLIA [id number] [place] [address] ALP [Catalytic activity/Vol] 131 U/L High 34-123 [facility] Comment on above: Order Comment: Speci men Type: BLOOD SPECIMENOrdering Facility: [facility] Address: [address] [place] [address] Performed By: #### 2 4323-8 ####[facility] LABCLIA [id number] [place] [address] ALT [Catalytic activity/Vol] 54 U/L High 7-38 [facility] Comment on above: Order Comment: Speci men Type: BLOOD SPECIMENOrdering Facility: [facility] Address: [address] [place] [address] Performed By: #### 2 4323-8 ####[facility] LABCLIA [id number] [place] [address] Anion gap [Moles/Vol] 9 mmol/L Normal 9-18 [facility] Comment on above: Order Comment: Speci men Type: BLOOD SPECIMENOrdering Facility: [facility] Address: [address] [place] [address] Performed By: #### 2 4323-8 ####[facility] LABCLIA [id number] [place] [address] AST [Catalytic activity/Vol] 46 U/L High 13-35 [facility] Comment on above: Order Comment: Speci men Type: BLOOD SPECIMENOrdering Facility: [facility] Address: [address] [place] [address] Performed By: #### 2 4323-8 ####[facility] LABCLIA [id number] [place] [address] Bilirubin [Mass/Vol] 0.3 mg/dL Normal 0.2-1.[address] [facility] Comment on above: Order Comment: Speci men Type: BLOOD SPECIMENOrdering Facility: [facility] Address: [address] [place] [address] Performed By: #### 2 4323-8 ####[facility] LABCLIA [id number] [place] [address] Calcium [Mass/Vol] 9.7 mg/dL Normal 8.5-10.2 [facility] Comment on above: Order Comment: Speci men Type: BLOOD SPECIMENOrdering Facility: [facility] Address: [address] [place] [address] Performed By: #### 2 4323-8 ####[facility] LABCLIA [id number] [place] [address] Chloride [Moles/Vol] 102 mmol/L Normal 97-[address] [facility] Comment on above: Order Comment: Speci men Type: BLOOD SPECIMENOrdering Facility: [facility] Address: [address] [place] [address] Performed By: #### 2 4323-8 ####[facility] LABCLIA [id number] [place] [address] CO2 [Moles/Vol] 25 mmol/L Normal 22-30 [facility] Comment on above: Order Comment: Speci men Type: BLOOD SPECIMENOrdering Facility: [facility] Address: [address] [place] [address] Performed By: #### 2 4323-8 ####[facility] LABCLIA [id number] [place] [address] Creatinine [Mass/Vol] 0.75 mg/dL Normal 0.58-0.96 [facility] Comment on above: Order Comment: Speci men Type: BLOOD SPECIMENOrdering Facility: [facility] Address: [address] [place] [address] Performed By: #### 2 4323-8 ####[facility] LABCLIA [id number] [place] [address] Creatinine and Glomerular filtration rate.predicted panel (S/P/Bld) 88 mL/min/1.73m??? Normal >=[address] [facility] Comment on above: Order Comment: Speci men Type: BLOOD SPECIMENOrdering Facility: [facility] Address: [address] [place] [address] Result Comment: Julita mated Glomerular Filtration Rate (eGFR) is calculated using the 2020 CKD-EPI creatinine equation. This equation utilizes serum creatinine, sex, and age as parameters. The creatinine assay has traceable calibration to isotope dilution-mass spectrometry. Refer to KDIGO guidelines for clinical interpretation. In patients with unstable renal function, e.g. those with acute kidney injury, the eGFR may not accurately reflect actual GFR. Performed By: #### 2 4323-8 ####[facility] LABCLIA [id number] [place] [address] Glucose [Mass/Vol] 371 mg/dL High 74-99 [facility] Comment on above: Order Comment: Speci men Type: BLOOD SPECIMENOrdering Facility: [facility] Address: [address] [place] [address] Result Comment: The [place] Diabetes Association (ADA) provides guidance for cutoff values for fasting glucose and random glucose. The ADA defines fasting as no caloric intake for at least 8 hours. Fasting plasma glucose results between 100 to 125 mg/dL indicate increased risk for diabetes (prediabetes).Fasting plasma glucose results greater than or equal to 126 mg/dL meet the criteria for diagnosis of diabetes. In the absence of unequivocal hyperglycemia, results should be confirmed by repeat testing. In a patient with classic symptoms of hyperglycemia or hyperglycemic crisis, random plasma glucose results greater than or equal to 200 mg/dL meet the criteria for diagnosis of diabetes.Reference: Standards of Medical Care in Diabetes 2016, [place] Diabetes Association. Diabetes Care. 2016.39(Suppl 1). Performed By: #### 2 4323-8 ####[facility] LABCLIA [id number] [place] [address] Potassium [Moles/Vol] 4.3 mmol/L Normal 3.7-5.1 [facility] Comment on above: Order Comment: Speci men Type: BLOOD SPECIMENOrdering Facility: [facility] Address: [address] [place] [address] Performed By: #### 2 4323-8 ####[facility] LABCLIA [id number] [place] [address] Protein [Mass/Vol] 7.1 g/dL Normal 6.3-8.0 [facility] Comment on above: Order Comment: Speci men Type: BLOOD SPECIMENOrdering Facility: [facility] Address: [address] [place] [address] Performed By: #### 2 4323-8 ####[facility] LABCLIA [id number] [place] [address] Sodium [Moles/Vol] 136 mmol/L Normal 136-144 [facility] Comment on above: Order Comment: Speci men Type: BLOOD SPECIMENOrdering Facility: [facility] Address: [address] [place] [address] Performed By: #### 2 4323-8 ####[facility] LABCLIA [id number] [place] [address] Urea nitrogen [Mass/Vol] 16 mg/dL Normal 7-21 [facility] Comment on above: Order Comment: Speci men Type: BLOOD SPECIMENOrdering Facility: [facility] Address: [address] [place] [address] Performed By: #### 2 4323-8 ####[facility] LABCLIA [id number] [place] [address] Albumin [Mass/Vol] 4.3 g/dL 3.9 - 4.9 g/dL [facility] ALP [Catalytic activity/Vol] 131 U/L High 34 - 12 3 U/L [facility] ALT [Catalytic activity/Vol] 54 U/L High 7 - 38 U/L [facility] Anion gap [Moles/Vol] 9 mmol/L 9 - 18 mmol/L [facility] AST [Catalytic activity/Vol] 46 U/L High 13 - 35 U/L [facility] Bilirubin [Mass/Vol] 0.3 mg/dL 0.2 - 1.3 mg/dL [facility] Calcium [Mass/Vol] 9.7 mg/dL 8.5 - 10.2 mg/dL [facility] Chloride [Moles/Vol] 102 mmol/L 97 - 105 mmol/L [facility] CO2 [Moles/Vol] 25 mmol/L 22 - 30 mmol/L [facility] Creatinine [Mass/Vol] 0.75 mg/dL 0.58 - 0.96 mg /dL [facility] Estimated Glomerular Filtration Rate 88 mL/min/1.73m >=60 mL/min/1.73m [facility] Glucose [Mass/Vol] 371 mg/dL High 74 - 99 mg/dL [facility] Potassium [Moles/Vol] 4.3 mmol/L 3.7 - 5.1 mmol /L [facility] Protein [Mass/Vol] 7.1 g/dL 6.3 - 8.0 g/dL [facility] Sodium [Moles/Vol] 136 mmol/L 136 - 144 mmol/L [facility] Urea nitrogen [Mass/Vol] 16 mg/dL 7 - 21 mg/d L [facility] Cortis SerPl-mCncon 03-17-20 Cortisol [Mass/Vol] 9.6 ug/dL Normal 4.8-19.5 [facility] Comment on above: Order Comment: Mahamed huynh Type: BLOOD SPECIMENOrdering Facility: [facility] Address: [address] [place] [address] Result Comment: Prov ided reference range is from 6-10 AM sample collection time.Cortisol Reference Range: 6-10 AM = 4.8-19.5 ug/dL, 4-8 PM = 2.5-11.9 ug/dL Performed By: #### 3 016-3, 2143-6 ####[facility] LABCLIA [id number] [place] [address] [place] HbA1c (Bld)on 03-17-2023 Average glucose Estimated from glycated hemoglobin (Bld) [Mass/Vol] 249 mg/dL [facility] HbA1c (Bld) [Mass fraction] 10.3 % High 4.3 - 5. 6 % [facility] Average glucose Estimated from glycated hemoglobin (Bld) [Mass/Vol] 249 mg/dL Normal [facility] Comment on above: Order Comment: Noai lino Type: BLOOD SPECIMENOrdering Facility: [facility] Address: [address] [place] [address] Result Comment: eAG: (Estimated average glucose) is a calculated value from HgbA1c and is circulation sales representative of the average blood glucose level in the last 2-3 month period. Performed By: #### 5 5454-3 ####[facility] LABCLIA [id number] [place] [address] [place] HbA1c (Bld) [Mass fraction] 10.3 % High 4.3-5.6 [facility] Comment on above: Order Comment: Speci men Type: BLOOD SPECIMENOrdering Facility: [facility] Address: [address] [place] [address] Result Comment: [place] Diabetes Association guidelines indicate that patients with HgbA1c in the range 5.7-6.4% are at increased risk for development of diabetes, and intervention by lifestyle modification may be beneficial. HgbA1c greater or equal to 6.5% is considered diagnostic of diabetes. Performed By: #### 5 5454-3 ####[facility] LABCLIA [id number] [place] [address] [place] TSH BLDon 03-17-2023 TSH Qn 2.020 m[IU]/L 0.270 - 4.200 mIU/L [facility] TSH SerPl-aCncon 03-17-2023 TSH Qn 2.020 m[IU]/L Normal 0.270-4.200 [facility] Comment on above: Order Comment: Speci men Type: BLOOD SPECIMENOrdering Facility: [facility] Address: [address] [place] [address] Performed By: #### 3 016-3, 2143-6 ####[facility] LABCLIA [id number] [place] [address] [place] CNPNon 03-16-2023 CNPN Normal [facility] CNPNon 03-15-2023 CNPN Normal [facility] MRI BREAST WO/W IVCON BILon 03-15-2023 MRI BREAST WO/W IVCON KATERINA * * *Final Report* * * DATE OF EXAM: Mar 15 2023 9:48AM MMM [id number] - MRI BREAST WO/W IVCON KATERINA / PROCEDURE REASON: multiple diagnoses * * * * Physician Interpretation * * * * #[id number] - MRI BREAST WO/W IVCON KATERINA BREAST MRI OF BOTH BREASTS: 03/15/2023 HISTORY: Multiple Diagnoses. RESULT: No prior exams were available for comparison. MRI images were obtained with a dedicated breast coil. TECHNIQUE: Axial STIR and axial T1 weighted imaging was carried out follow by axial T1- with fat saturation imaging both before and after IV administration of 17 ml of Dotarem. Subsequently, complex volumetric analysis requiring post processing performed using a semi-automated software [email or web address], on an independent workstation by the physician, with images created reviewed and archived. COMPARISON: Mammogram and ultrasound 03/10/2023. Ultrasound-guided right breast biopsy and postbiopsy mammogram 03/10/2023. Outside facility mammogram and ultrasound 01/17/2023. Outside facility ultrasound guided biopsy and postbiopsy mammogram 01/20/2023. Outside facility mammograms 07/30/2021 and 06/09/2020 INDICATION: Biopsy-proven invasive ductal carcinoma in the 12:00 right breast. Recent benign ultrasound-guided biopsy of an abnormality in the 9:00 right breast. Evaluate extent of disease prior to treatment. FINDINGS: Scattered fibroglandular breast tissue. No axillary lymphadenopathy. No internal mammary chain lymphadenopathy. Mild, symmetric background parenchymal enhancement of the breast tissue bilaterally. There are few scattered bilateral enhancing foci and clumped nodular areas of enhancement bilaterally, which all seem to demonstrate persistent enhancement kinetics, with none of these significantly standing out from the others. In the 12:00 anterior-middle depth right breast, there is a 2.2 x 1.3 x 1.1 cm irregular/spiculated enhancing mass, seen on series 8 images 111-128 and series 1013 images 99-106. This corresponds with the biopsy proven invasive carcinoma. There is minimal hazy stranding enhancement in the 9:00 middle-posterior depth right breast, with a subtle tract from recent benign biopsy, along with the associated biopsy marking clip, with the area seen on example series 8 images 85-94. No suspicious enhancing masses or areas of nonmass-like enhancement in the left breast. There is artifact from a left chest wall port catheter. IMPRESSION: KNOWN BIOPSY PROVEN MALIGNANCY 1. 2.2 cm spiculated enhancing mass in the 12:00 anterior depth-middle depth right breast at site of biopsy-proven malignancy. 2. No other definite suspicious areas of enhancement in either breast. No lymphadenopathy. Ninoska Cruz M.D. lm/:03/16/2023 11:15:55 Round Up Ring Hand(s): Hemant Tee, [facility] MRI BI-RADS: 6 Known biopsy proven malignancy Multiple national specialty organizations have released breast cancer screening guidelines for women at average risk for developing breast cancer - guidelines that are based on both evidence and opinion, yet differ on when to start and how often to screen for breast cancer. With representation from Breast Imaging, Internal Medicine, Women's Health, Family Medicine, and Medical/Surgical Oncology, the [facility] has carefully reviewed the data and reached the following consensus: 1) All women should engage in shared decision-making with their providers to decide when to start and how often to screen; 2) All women should have the opportunity to start screening mammography at age 40; 3) For women ages 45-55, we recommend annual screening mammograms; 4) For women ages 55 and over, we support both the transition from an annual to a biennial interval if this aligns more with patient's values and preferences, or continuation with annual screening; 5) All women should discuss with their providers when to stop screening mammograms. Supervisor Lead Burning: Karishma Transcribe Date/Time: Mar 15 2023 9:13A Dictated by : NINOSKA CRUZ MD This examination was interpreted and the report reviewed and electronically signed by: NINOSKA CRUZ MD on Mar 16 2023 11:15AM EST [id number] [facility] 03-11-2023 CNPN Normal [facility] SURGICAL PATHOLOGYon 023 Case Report Surgical Pathology R eport Case: [id number] Authorizing Provider: Anya Alcaraz MD Collected: 03/10/2023 12:32 PM Ordering Location: [facility] Radiology Received: 03/10/2023 02:42 PM Mammography Pathologist: Anat Rice MD Specimen: BREAST CORE BIOPSY RIGHT, 9:00 9 cmfn right breast 0.7 cm mass -heart clip [facility] FINAL DIAGNOSIS A. Right breast at 9 o'clock, 9 cm from nipple, ultrasound-guided core biopsy with heart clip placement: - Breast tissue with dense stromal fibrosis. [facility] Gross Description A. BREAST CORE BIOPS Y RIGHT Received in formalin labeled as right breast are multiple segments of cylindrical tissue aggregating to 1.2 x 0.3 x 0.1 cm, holbrook-yellow and of a soft consistency. The specimen was removed from the patient at 12:32 on 03/10/2023. On the same day, the specimen was placed in formalin at 12:32. Totally submitted in formalin in one cassette. Gross examination performed at [facility], [address] [place] [address] JT 03/10/2023 7:46 PM [facility] Performing Lab Diagnostic interpret ation performed at [facility], [address], [place] [id number] CLIA# [id number] Beam Saw Operator: Priti Winston M.D. [facility] CNOVon 03-10-2023 CNOV Normal [facility] SUSIE DIAG W ZULEMA BILon 2022 SUSIE DIAG W ZULEMA KATERINA * * *Final Report* * * DATE OF EXAM: Mar 10 2023 8:43AM VHW [id number] - SUSIE DIAG W ZULEMA KATERINA / PROCEDURE REASON: multiple diagnoses * * * * Physician Interpretation * * * * RESULT: #[id number] - SUSIE DIAG W ZULEMA KATERINA #[id number] - SUSIE BREAST LTD RT BILATERAL DIGITAL DIAGNOSTIC MAMMOGRAM TOMOSYNTHESIS WITH CAD: 03/10/2023 HISTORY: 67-year-old female biopsy-proven cancer in the right breast at outside institution. Additional imaging evaluation recommended on outside imaging review. Multiple Diagnoses. RESULT: TECHNIQUE: The study was acquired using full field digital technology and interpreted from soft copy. Digital Breast Tomosynthesis (DBT) images were obtained and used to assist in the interpretation of this examination. Current study was also evaluated with a Computer Aided Detection (CAD). Comparison is made to exams dated: 01/20/2023 mammogram, 01/17/2023 mammogram, 08/02/2022 mammogram, 07/30/2021 mammogram, and 06/09/2020 mammogram. The breasts are heterogeneously dense, which may obscure small masses. There is a biopsy site marker on the left breast. There is a mass in the right breast upper outer aspect anterior depth. There is a biopsy clip associated with the mass. There also is an oval focal asymmetry in the right breast upper outer aspect posterior depth. No other significant masses, calcifications, or other findings are seen in either breast. LIMITED ULTRASOUND OF RIGHT BREAST: 03/10/2023 RESULT: Comparison is made to exams dated: 01/20/2023 mammogram, 01/17/2023 mammogram, 08/02/2022 mammogram, 07/30/2021 mammogram, and 06/09/2020 mammogram. Color flow and real-time ultrasound of the right breast 12 o'clock region were performed. There is a 0.7 cm x 0.5 cm x 0.5 cm oval mass with a circumscribed margin in the right breast at 9 o'clock posterior depth 9 cm from the nipple. This oval mass is hypoechoic. This correlates with mammography findings. Color flow imaging demonstrates that there is no vascularity present. There also is an irregular mass in the right breast at 12 o'clock anterior depth. This irregular mass is hypoechoic. This correlates with mammography findings. There is an associated biopsy clip. This finding measures approximately 1.2 x 1.6 x 1.4 cm. There is an adjacent irregular hypoechoic area, which is located slightly medial to the irregular mass. The abnormality including this area measures approximately 1.2 x 1.6 x 2.6 cm. However, this area may represent postbiopsy change this is not definitively visualized on the ultrasound performed at the outside institution, prior to the biopsy Real-time targeted ultrasound of the right axilla was also performed. Multiple morphologically normal lymph nodes are visualized in the right axilla. No suspicious axillary lymphadenopathy is noted. SUMMARY: Additional biopsy was performed on the same date, and is dictated separately. Anya singh/karishma:03/10/2023 16:21:13 Multiple national specialty organizations have released breast cancer screening guidelines for women at average risk for developing breast cancer - guidelines that are based on both evidence and opinion, yet differ on when to start and how often to screen for breast cancer. With representation from Breast Imaging, Internal Medicine, Women's Health, Family Medicine, and Medical/Surgical Oncology, the [facility] has carefully reviewed the data and reached the following consensus: 1) All women should engage in shared decision-making with their providers to decide when to start and how often to screen; 2) All women should have the opportunity to start screening mammography at age 40; 3) For women ages 45-55, we recommend annual screening mammograms; 4) For women ages 55 and over, we support both the transition from an annual to a biennial interval if this aligns more with patient's values and preferences, or continuation with annual screening; 5) All women should discuss with their providers when to stop screening mammograms. Round Up Ring Hand(s): Sapna Arenas, RT(R)(M), [facility]; [facility] OVERALL STUDY BIRADS: 4 Suspicious finding - Biopsy should be considered Supervisor Lead Burning: Karishma Transcribe Date/Time: Mar 10 2023 8:23A Dictated by : ANYA ALCARAZ MD This examination was interpreted and the report reviewed and electronically signed by: ANYA ALCARAZ MD on Mar 10 2023 4:21PM EST [id number] Normal [facility] SUSIE DIAG W ZULEMA BILATERALon 03-10-2023 [facility] SUSIE DIAG W ZULEMA RIGHTon 02-20 [facility] ic SUSIE DIAG W ZULEMA RTon 023 SUSIE DIAG W ZULEMA RT * * *Final Report* * * * * * SEE BOTTOM OF REPORT FOR ADDENDED TEXT * * * DATE OF EXAM: Mar 10 2023 12:59PM [facility] 0629 - SUSIE DIAG W ZULEMA RT / PROCEDURE REASON: Breast disorder * * * * Physician Interpretation * * * * RESULT: #[id number] - SUSIE DIAG W ZULEMA RT #[id number] - SUSIE US BIOPSY BREAST RT ULTRASOUND GUIDED BIOPSY RIGHT BREAST WITH POST DIGITAL MAMMOGRAPHIC IMAGIN03/10/2023 HISTORY: /The patient presents for ultrasound-guided right breast biopsy. Pre and post fire sonographic images were obtained and stored in permanent archive. right breast ultrasound core biopsy 9:00 9cmfn with heart clip placement. /Post right breast biopsy heart clip placement. PATIENT CONSENT: A time out was performed immediately prior to procedure start with the radiology team, correctly identifying the patient name, date of , procedure, anatomy (including marking of site and side), patient position, relevant diagnostic and radiology test results, safety precautions, and procedure-specific equipment needs. The procedure was explained to the patient including the risks, benefits and alternatives. Medications and allergies were also reviewed. The risks, including but not limited to infection and bleeding, were reviewed by the performing physician and the patient agreed to undergo the procedure. The radiologist and technologist were present throughout the entire procedure. Audible Time Out Time: 1230 Procedure Start Time: 1230 Procedure Stop Time: 1240 Dr. Alcaraz performed the entire procedure without an ict sales assistant. Correlation is made to exams dated: 03/10/2023 mammogram, 03/10/2023 ultrasound - [facility], 01/20/2023 mammogram, 01/17/2023 mammogram, and 08/02/2022 mammogram. An ultrasound guided biopsy using real-time ultrasound was performed for the mass located in the right breast at 9 o'clock. This was described on the previous ultrasound report. The skin was prepped in the usual manner. Local anesthetic was administered to the access site. A skin shawnee was made in the breast. The abnormality was approached from the lateral aspect. A 14 gauge biopsy needle was placed adjacent to the abnormality under ultrasound guidance. Once the needle was documented to be in the correct location, four cores were obtained using a BARD biopsy device. The patient received additional local anesthetic during the procedure. A sterile dressing was applied to the access site. Post procedure digital mammographic imaging demonstrates the clip at the targeted area. The specimens were sent to the laboratory for pathological analysis. IMPRESSION: ULTRASOUND GUIDED BIOPSY BENIGN Ultrasound guided biopsy of the mass in the right breast was successful with no apparent post procedure complications. Pathology indicates benign finding. Pathology results are concordant with imaging findings. SUMMARY: Concordant pathology results are as follows: FINAL DIAGNOSIS A. Right breast at 9 o'clock, 9 cm from nipple, ultrasound-guided core biopsy with heart clip placement: - Breast tissue with dense stromal fibrosis. The patient was notified of the concordant pathology results by phone on 03/15/2023. Continued surgical consultation is recommended for the patient's biopsy-proven malignancy in the right breast. Anya singh/karishma:03/15/2023 16:28:19 Attending Technologist(s): [facility]ilani [facility]; [facility] Round Up Ring Hand(s): Linhyudith Carroll[facility]St. [facility]; [facility] Multiple national specialty organizations have released breast cancer screening guidelines for women at average risk for developing breast cancer - guidelines that are based on both evidence and opinion, yet differ on when to start and how often to screen for breast cancer. With representation from Breast Imaging, Internal Medicine, Women's Health, Family Medicine, and Medical/Surgical Oncology, the [facility] has carefully reviewed the data and reached the following consensus: 1) All women should engage in shared decision-making with their providers to decide when to start and how often to screen; 2) All women should have the opportunity to start screening mammography at age 40; 3) For women ages 45-55, we recommend annual screening mammograms; 4) For women ages 55 and over, we support both the transition from an annual to a biennial interval if this aligns more with patient's values and preferences, or continuation with annual screening; 5) All women should discuss with their providers when to stop screening mammograms. Supervisor Lead Burning: Karishma Transcribe Date/Time: Mar 10 2023 10:35A Dictated by : ANYA ALCARAZ MD This examination was interpreted and the report reviewed and electronically signed by: ANYA ALCARAZ MD on Mar 10 2023 4:31PM EST This document has been addended by: ANYA ALCAARZ MD on Mar 15 2023 4:28PM EST (more content not included)... Normal [facility] US BIOPSY BREAST RTon [facility] US BIOPSY BREAST RT * * *Final Repor t* * * * * * SEE BOTTOM OF REPORT FOR ADDENDED TEXT * * * DATE OF EXAM: Mar 10 2023 1:28PM [facility] 0598 - [facility] US BIOPSY BREAST RT / PROCEDURE REASON: Breast disorder * * * * Physician Interpretation * * * * RESULT: #[id number] - [facility] DIAG W ZULEMA RT #[id number] - [facility] US BIOPSY BREAST RT ULTRASOUND GUIDED BIOPSY RIGHT BREAST WITH POST DIGITAL MAMMOGRAPHIC IMAGIN03/10/2023 HISTORY: /The patient presents for ultrasound-guided right breast biopsy. Pre and post fire sonographic images were obtained and stored in permanent archive. right breast ultrasound core biopsy 9:00 9cmfn with heart clip placement. /Post right breast biopsy heart clip placement. PATIENT CONSENT: A time out was performed immediately prior to procedure start with the radiology team, correctly identifying the patient name, date of , procedure, anatomy (including marking of site and side), patient position, relevant diagnostic and radiology test results, safety precautions, and procedure-specific equipment needs. The procedure was explained to the patient including the risks, benefits and alternatives. Medications and allergies were also reviewed. The risks, including but not limited to infection and bleeding, were reviewed by the performing physician and the patient agreed to undergo the procedure. The radiologist and technologist were present throughout the entire procedure. Audible Time Out Time: 1230 Procedure Start Time: 1230 Procedure Stop Time: 1240 Dr. Alcaraz performed the entire procedure without an ict sales assistant. Correlation is made to exams dated: 03/10/2023 mammogram, 03/10/2023 ultrasound - [facility], 01/20/2023 mammogram, 01/17/2023 mammogram, and 08/02/2022 mammogram. An ultrasound guided biopsy using real-time ultrasound was performed for the mass located in the right breast at 9 o'clock. This was described on the previous ultrasound report. The skin was prepped in the usual manner. Local anesthetic was administered to the access site. A skin shawnee was made in the breast. The abnormality was approached from the lateral aspect. A 14 gauge biopsy needle was placed adjacent to the abnormality under ultrasound guidance. Once the needle was documented to be in the correct location, four cores were obtained using a BARD biopsy device. The patient received additional local anesthetic during the procedure. A sterile dressing was applied to the access site. Post procedure digital mammographic imaging demonstrates the clip at the targeted area. The specimens were sent to the laboratory for pathological analysis. IMPRESSION: ULTRASOUND GUIDED BIOPSY BENIGN Ultrasound guided biopsy of the mass in the right breast was successful with no apparent post procedure complications. Pathology indicates benign finding. Pathology results are concordant with imaging findings. SUMMARY: Concordant pathology results are as follows: FINAL DIAGNOSIS A. Right breast at 9 o'clock, 9 cm from nipple, ultrasound-guided core biopsy with heart clip placement: - Breast tissue with dense stromal fibrosis. The patient was notified of the concordant pathology results by phone on 03/15/2023. Continued surgical consultation is recommended for the patient's biopsy-proven malignancy in the right breast. Anya singh/karishma:03/15/2023 16:28:19 Attending Technologist(s): Yodit Wright, [facility]; Linh Heller, [facility] Round Up Ring Hand(s): Linh Heller, [facility]; Yodit Wright, [facility] Multiple national specialty organizations have released breast cancer screening guidelines for women at average risk for developing breast cancer - guidelines that are based on both evidence and opinion, yet differ on when to start and how often to screen for breast cancer. With representation from Breast Imaging, Internal Medicine, Women's Health, Family Medicine, and Medical/Surgical Oncology, the [facility] has carefully reviewed the data and reached the following consensus: 1) All women should engage in shared decision-making with their providers to decide when to start and how often to screen; 2) All women should have the opportunity to start screening mammography at age 40; 3) For women ages 45-55, we recommend annual screening mammograms; 4) For women ages 55 and over, we support both the transition from an annual to a biennial interval if this aligns more with patient's values and preferences, or continuation with annual screening; 5) All women should discuss with their providers when to stop screening mammograms. Supervisor Lead Burning: Karishma Transcribe Date/Time: Mar 10 2023 10:35A Dictated by : ANYA ALCARAZ MD This examination was interpreted and the report reviewed and electronically signed by: ANYA ALCARAZ MD on Mar 10 2023 4:31PM EST This document has been addended by: ANYA ALCARAZ MD on Mar 15 2023 4:28PM (more content not included)... Normal [facility] [employer] BREAST LTD RTon 03-10 [facility] [employer] BREAST LTD RT * * *Final Report* * * DATE OF EXAM: Mar 10 2023 9:17AM [facility] 0594 - [facility] [employer] BREAST SeGan [employer] RT / PROCEDURE REASON: multiple diagnoses * * * * Physician Interpretation * * * * RESULT: #[id number] - [facility] ALEXG W ZULEMA KATERINA #[id number] - [facility] [employer] BREAST LTD RT BILATERAL DIGITAL DIAGNOSTIC MAMMOGRAM TOMOSYNTHESIS WITH CAD: 03/10/2023 HISTORY: 67-year-old female biopsy-proven cancer in the right breast at outside institution. Additional imaging evaluation recommended on outside imaging review. Multiple Diagnoses. RESULT: TECHNIQUE: The study was acquired using full field digital technology and interpreted from soft copy. Digital Breast Tomosynthesis (DBT) images were obtained and used to assist in the interpretation of this examination. Current study was also evaluated with a Computer Aided Detection (CAD). Comparison is made to exams dated: 01/20/2023 mammogram, 01/17/2023 mammogram, 08/02/2022 mammogram, 07/30/2021 mammogram, and 06/09/2020 mammogram. The breasts are heterogeneously dense, which may obscure small masses. There is a biopsy site marker on the left breast. There is a mass in the right breast upper outer aspect anterior depth. There is a biopsy clip associated with the mass. There also is an oval focal asymmetry in the right breast upper outer aspect posterior depth. No other significant masses, calcifications, or other findings are seen in either breast. LIMITED ULTRASOUND OF RIGHT BREAST: 03/10/2023 RESULT: Comparison is made to exams dated: 01/20/2023 mammogram, 01/17/2023 mammogram, 08/02/2022 mammogram, 07/30/2021 mammogram, and 06/09/2020 mammogram. Color flow and real-time ultrasound of the right breast 12 o'clock region were performed. There is a 0.7 cm x 0.5 cm x 0.5 cm oval mass with a circumscribed margin in the right breast at 9 o'clock posterior depth 9 cm from the nipple. This oval mass is hypoechoic. This correlates with mammography findings. Color flow imaging demonstrates that there is no vascularity present. There also is an irregular mass in the right breast at 12 o'clock anterior depth. This irregular mass is hypoechoic. This correlates with mammography findings. There is an associated biopsy clip. This finding measures approximately 1.2 x 1.6 x 1.4 cm. There is an adjacent irregular hypoechoic area, which is located slightly medial to the irregular mass. The abnormality including this area measures approximately 1.2 x 1.6 x 2.6 cm. However, this area may represent postbiopsy change this is not definitively visualized on the ultrasound performed at the outside institution, prior to the biopsy Real-time targeted ultrasound of the right axilla was also performed. Multiple morphologically normal lymph nodes are visualized in the right axilla. No suspicious axillary lymphadenopathy is noted. SUMMARY: Additional biopsy was performed on the same date, and is dictated separately. Anya singh/karishma:03/10/2023 16:21:13 Multiple national specialty organizations have released breast cancer screening guidelines for women at average risk for developing breast cancer - guidelines that are based on both evidence and opinion, yet differ on when to start and how often to screen for breast cancer. With representation from Breast Imaging, Internal Medicine, Women's Health, Family Medicine, and Medical/Surgical Oncology, the [facility] has carefully reviewed the data and reached the following consensus: 1) All women should engage in shared decision-making with their providers to decide when to start and how often to screen; 2) All women should have the opportunity to start screening mammography at age 40; 3) For women ages 45-55, we recommend annual screening mammograms; 4) For women ages 55 and over, we support both the transition from an annual to a biennial interval if this aligns more with patient's values and preferences, or continuation with annual screening; 5) All women should discuss with their providers when to stop screening mammograms. Round Up Ring Hand(s): RT Marco A(R)(M), [facility]; [facility] OVERALL STUDY BIRADS: 4 Suspicious finding - Biopsy should be considered Supervisor Lead Burning: Karishma Transcribe Date/Time: Mar 10 2023 8:23A Dictated by : ANYA ALCARAZ MD This examination was interpreted and the report reviewed and electronically signed by: ANYA ALCARAZ MD on Mar 10 2023 4:21PM EST [id number] Normal [facility] No Panel Informationon 03-10 [facility] SURGICAL PATHOLOGYon 023 CASE REPORT Normal [facility] Comment on above: Order Comment: Speci men Type: TISSUE SPECIMEN Ordering Facility: [facility] Address: [address] [place] [address] Result Comment: [facility]urg [facility] Pathology Report Case: [id number] Authorizing Provider: Anya Alcaraz MD Collected: 03/10/2023 12:32 PM Ordering Location: [facility] Radiology Received: 03/10/2023 02:42 PM Mammography Pathologist: Anat Rice MD Specimen: BREAST CORE BIOPSY RIGHT, 9:00 9 cmfn right breast 0.7 cm mass -heart clip Performed By: #### S #### [facility] CLIA [id number] [address] [place] [address] STATES OF [facility] CLIA [id number] [address] [place] [address] [place] FINAL DIAGNOSIS Normal [facility] ital Comment on above: Order Comment: Speci men Type: TISSUE SPECIMEN Ordering Facility: [facility] Address: [address] [place] [address] Result Comment: A. R ight breast at 9 o'clock, 9 cm from nipple, ultrasound- guided core biopsy with heart clip placement: - Breast tissue with dense stromal fibrosis. Performed By: #### S #### [facility] CLIA [id number] [address] [place] [address] [place] [facility] CLIA [id number] [address] [place] [address] [place] FINAL PERFORMING LAB Normal [facility] Comment on above: Order Comment: Speci men Type: TISSUE SPECIMEN Ordering Facility: [facility] Address: [address] [place] [address] Result Comment: Diag nostic interpretation performed at [facility], [address] [place] [address] CLIA# [id number] Beam Saw Operator: Priti Winston M.D. Performed By: #### S #### [facility] CLIA [id number] [address] [place] [address] [place] [facility] CLIA [id number] [address] [place] [address] [place] GROSS DESCRIPTION Normal [facility] Comment on above: Order Comment: Speci men Type: TISSUE SPECIMEN Ordering Facility: [facility] Address: [address] [place] [address] Result Comment: A. B REAST CORE BIOPSY RIGHT Received in formalin labeled as right breast are multiple segments of cylindrical tissue aggregating to 1.2 x 0.3 x 0.1 cm, [place]-yellow and of a soft consistency. The specimen was removed from the patient at 12:32 on 03/10/2023. On the same day, the specimen was placed in formalin at 12:32. Totally submitted in formalin in one cassette. Gross examination performed at [facility], [address] [place] [address] JT 03/10/2023 7:46 PM Performed By: #### S #### [facility] CLIA [id number] LAB CLIA [id number] [address] [facility] DESK [id number] [place] [address] US BIOPSY BREAST RIGHTon [facility] ic CBC W Auto Differential pane l (Bld)on 03-09-2023 Basophils (Bld) [#/Vol] 0.04 10*3/uL Normal <0.11 [facility] Comment on above: Order Comment: Speci men Type: BLOOD SPECIMENOrdering Facility: [facility] Address: [address] [place] [address] Performed By: #### 5 7021-8 ####[facility] [id number] [place] [address] Basophils/100 WBC (Bld) 0.5 % Normal [facility] Comment on above: Order Comment: Speci men Type: BLOOD SPECIMENOrdering Facility: [facility] Address: [address] [place] [address] Performed By: #### 5 7021-8 ####[facility] [id number] [place] [address] Differential cell count method Nom (Bld) Auto Normal [facility] Comment on above: Order Comment: Speci men Type: BLOOD SPECIMENOrdering Facility: [facility] Address: [address] [place] [address] Performed By: #### 5 7021-8 ####[facility]IA [id number] [place] [address] Eosinophils (Bld) [#/Vol] 0.09 10*3/uL Normal <0.46 [facility] Comment on above: Order Comment: Speci men Type: BLOOD SPECIMENOrdering Facility: [facility] Address: [address] [place] [address] Performed By: #### 5 7021-8 ####[facility] LABCLIA [id number] [place] [address] Eosinophils/100 WBC (Bld) 1.1 % Normal [facility] Comment on above: Order Comment: Speci men Type: BLOOD SPECIMENOrdering Facility: [facility] Address: [address] [place] [address] Performed By: #### 5 7021-8 ####[facility] LABCLIA [id number] [place] [address] Erythrocyte distribution wid th (RBC) [Ratio] 12.8 % Normal 11.5-15.0 [facility] Comment on above: Order Comment: Speci men Type: BLOOD SPECIMENOrdering Facility: [facility] Address: [address] [place] [address] Performed By: #### 5 7021-8 ####[facility] [facility] LABCL[facility] [id number] [place] [address] Hematocrit (Bld) [Volume fraction] 40.8 % Normal 3 6.0-46.0 [facility] Comment on above: Order Comment: Speci men Type: BLOOD SPECIMENOrdering Facility: [facility] Address: [address] [place] [address] Performed By: #### 5 7021-8 ####[facility] LABIA [id number] [place] [address] Hemoglobin (Bld) [Mass/Vol] 13.6 g/dL Normal 11.5-15. 5 [facility] Comment on above: Order Comment: Speci men Type: BLOOD SPECIMENOrdering Facility: [facility] Address: [address] [place] [address] Performed By: #### 5 7021-8 ####[facility] LABCLIA [id number] [place] [address] Immature granulocytes (Bld) [#/Vol] 10*3/uL Normal <0.10 [facility] Comment on above: Order Comment: Speci men Type: BLOOD SPECIMENOrdering Facility: [facility] Address: [address] [place] [address] Performed By: #### 5 7021-8 ####[facility] LABCLIA [id number] [place] [address] Immature granulocytes/100 WBC (Bld) 0.2 % Normal [facility] Comment on above: Order Comment: Speci men Type: BLOOD SPECIMENOrdering Facility: [facility] Address: [address] [place] [address] Performed By: #### 5 7021-8 ####[facility] LABCLIA [id number] [place] [address] Lymphocytes (Bld) [#/Vol] 2.67 10*3/uL Normal 1.00-4.0 0 [facility] Comment on above: Order Comment: Speci men Type: BLOOD SPECIMENOrdering Facility: [facility] Address: [address] [place] [address] Performed By: #### 5 7021-8 ####[facility] LABCLIA [id number] [place] [address] Lymphocytes/100 WBC (Bld) 32.5 % Normal [facility] Comment on above: Order Comment: Speci men Type: BLOOD SPECIMENOrdering Facility: [facility] Address: [address] [place] [address] Performed By: #### 5 7021-8 ####[facility] LABIA [id number] [place] [address] MCH (RBC) [Entitic mass] 29.0 pg Normal 26.0-34.0 [facility] Comment on above: Order Comment: Speci men Type: BLOOD SPECIMENOrdering Facility: [facility] Address: [address] [place] [address] Performed By: #### 5 7021-8 ####[facility] LABCLIA [id number] [place] [address] MCHC (RBC) [Mass/Vol] 33.3 g/dL Normal 30.5-36.0 [facility] Comment on above: Order Comment: Speci men Type: BLOOD SPECIMENOrdering Facility: [facility] Address: [address] [place] [address] Performed By: #### 5 7021-8 ####[facility] LABCLIA [id number] [place] [address] MCV (RBC) [Entitic vol] 87.0 fL Normal 80.0-100.0 [facility] Comment on above: Order Comment: Speci men Type: BLOOD SPECIMENOrdering Facility: [facility] Address: [address] [place] [address] Performed By: #### 5 7021-8 ####[facility] LABCLIA [id number] [place] [address] Monocytes (Bld) [#/Vol] 0.51 10*3/uL Normal <0.87 [facility] Comment on above: Order Comment: Speci men Type: BLOOD SPECIMENOrdering Facility: [facility] Address: [address] [place] [address] Performed By: #### 5 7021-8 ####[facility] LABCLIA [id number] [place] [address] Monocytes/100 WBC (Bld) 6.2 % Normal [facility] Comment on above: Order Comment: Speci men Type: BLOOD SPECIMENOrdering Facility: [facility] Address: [address] [place] [address] Performed By: #### 5 7021-8 ####[facility] LABCLIA [id number] [place] [address] Neutrophils (Bld) [#/Vol] 4.89 10*3/uL Normal 1.45-7.5 0 [facility] Comment on above: Order Comment: Speci men Type: BLOOD SPECIMENOrdering Facility: [facility] Address: [address] [place] [address] Performed By: #### 5 7021-8 ####[facility] LABCLIA [id number] [place] [address] Neutrophils/100 WBC (Bld) 59.5 % Normal [facility] Comment on above: Order Comment: Speci men Type: BLOOD SPECIMENOrdering Facility: [facility] Address: [address] [place] [address] Performed By: #### 5 7021-8 ####[facility] LABCLIA [id number] [place] [address] Nucleated RBC (Bld) [#/Vol] 10*3/uL Normal <0.01 [facility] Comment on above: Order Comment: Speci men Type: BLOOD SPECIMENOrdering Facility: [facility] Address: [address] [place] [address] Performed By: #### 5 7021-8 ####[facility] LABCLIA [id number] [place] [address] Nucleated RBC/100 WBC (Bld) [Ratio] 0.0 /100 WBC Normal [facility] Comment on above: Order Comment: Speci men Type: BLOOD SPECIMENOrdering Facility: [facility] Address: [address] [place] [address] Performed By: #### 5 7021-8 ####[facility] LABIA [id number] [place] [address] Platelet mean volume (Bld) [ Entitic vol] 9.9 fL Normal 9.0-12.7 [facility] Comment on above: Order Comment: Speci men Type: BLOOD SPECIMENOrdering Facility: [facility] Address: [address] [id number] Performed By: #### 5 7021-8 ####[facility] LABCLIA [id number] [place] [address] Platelets (Bld) [#/Vol] 332 10*3/uL Normal 150-400 [facility] Comment on above: Order Comment: Speci men Type: BLOOD SPECIMENOrdering Facility: [facility] Address: [address] [place] [address] Performed By: #### 5 7021-8 ####[facility] LABCLIA [id number] [place] [address] RBC (Bld) [#/Vol] 4.69 10*6/uL Normal 3.90-5.20 [facility] Comment on above: Order Comment: Speci men Type: BLOOD SPECIMENOrdering Facility: [facility] Address: [address] [place] [address] Performed By: #### 5 7021-8 ####[facility] LABCLIA [id number] [place] [address] WBC (Bld) [#/Vol] 8.22 10*3/uL Normal 3.70-11.00 [facility] Comment on above: Order Comment: Speci men Type: BLOOD SPECIMENOrdering Facility: [facility] Address: [address] [place] [address] Performed By: #### 5 7021-8 ####[facility] LABCLIA [id number] [place] [address] CNCNPATEDon 03-09-2023 CNCNPATED Normal [facility] CT ABD/PEL W IVCONon 023 CT ABD/PEL W IVCON Normal [facility] CT CHEST W IVCONon 3 CT CHEST W IVCON Normal [facility] Comprehensive metabolic 2000 panelon 03-09-2023 Albumin [Mass/Vol] 4.6 g/dL Normal 3.9-4.9 [facility] Comment on above: Order Comment: Speci men Type: BLOOD SPECIMENOrdering Facility: [facility] Address: [address] [place] [address] Performed By: #### 2 4323-8 ####[facility] LABCLIA [id number] [place] [address] ALP [Catalytic activity/Vol] 140 U/L High 34-123 [facility] Comment on above: Order Comment: Speci men Type: BLOOD SPECIMENOrdering Facility: [facility] Address: [address] [place] [address] Performed By: #### 2 4323-8 ####[facility] LABCLIA [id number] [place] [address] ALT [Catalytic activity/Vol] 55 U/L High 7-38 [facility] Comment on above: Order Comment: Speci men Type: BLOOD SPECIMENOrdering Facility: [facility] Address: [address] [place] [address] Performed By: #### 2 4323-8 ####[facility] LABCLIA [id number] [place] [address] Anion gap [Moles/Vol] 11 mmol/L Normal 9-18 [facility] Comment on above: Order Comment: Speci men Type: BLOOD SPECIMENOrdering Facility: [facility] Address: [address] [place] [address] Performed By: #### 2 4323-8 ####[facility] LABCLIA [id number] [place] [address] AST [Catalytic activity/Vol] 53 U/L High 13-35 [facility] Comment on above: Order Comment: Speci men Type: BLOOD SPECIMENOrdering Facility: [facility] Address: [address] [place] [address] Performed By: #### 2 4323-8 ####[facility] LABCLIA [id number] [place] [address] Bilirubin [Mass/Vol] 0.3 mg/dL Normal 0.2-1.[address] [facility] Comment on above: Order Comment: Speci men Type: BLOOD SPECIMENOrdering Facility: [facility] Address: [address] [place] [address] Performed By: #### 2 4323-8 ####[facility] LABCLIA [id number] [place] [address] Calcium [Mass/Vol] 9.9 mg/dL Normal 8.5-10.2 [facility] Comment on above: Order Comment: Speci men Type: BLOOD SPECIMENOrdering Facility: [facility] Address: [address] [place] [address] Performed By: #### 2 4323-8 ####[facility] LABCLIA [id number] [place] [address] Chloride [Moles/Vol] 100 mmol/L Normal 97-[address] [facility] Comment on above: Order Comment: Speci men Type: BLOOD SPECIMENOrdering Facility: [facility] Address: [address] [place] [address] Performed By: #### 2 4323-8 ####[facility] LABCLIA [id number] [place] [address] CO2 [Moles/Vol] 27 mmol/L Normal 22-30 [facility] Comment on above: Order Comment: Speci men Type: BLOOD SPECIMENOrdering Facility: [facility] Address: [address] [place] [address] Performed By: #### 2 4323-8 ####[facility] LABCLIA [id number] [place] [address] Creatinine [Mass/Vol] 0.71 mg/dL Normal 0.58-0.96 [facility] Comment on above: Order Comment: Speci men Type: BLOOD SPECIMENOrdering Facility: [facility] Address: [address] [place] [address] Performed By: #### 2 4323-8 ####[facility] LABCLIA [id number] [place] [address] Creatinine and Glomerular filtration rate.predicted panel (S/P/Bld) 94 mL/min/1.73m??? Normal >=[address] [facility] Comment on above: Order Comment: Specarin huynh Type: BLOOD SPECIMENOrdering Facility: [facility] Address: [address] [place] [address] Result Comment: Julita mated Glomerular Filtration Rate (eGFR) is calculated using the 2020 CKD-EPI creatinine equation. This equation utilizes serum creatinine, sex, and age as parameters. The creatinine assay has traceable calibration to isotope dilution-mass spectrometry. Refer to KDIGO guidelines for clinical interpretation. In patients with unstable renal function, e.g. those with acute kidney injury, the eGFR may not accurately reflect actual GFR. Performed By: #### 2 4323-8 ####[facility] LABIA [id number] [place] [address] Glucose [Mass/Vol] 197 mg/dL High 74-99 [facility] Comment on above: Order Comment: Speci lino Type: BLOOD SPECIMENOrdering Facility: [facility] Address: [address] [place] [address] Result Comment: The [place] Diabetes Association (ADA) provides guidance for cutoff values for fasting glucose and random glucose. The ADA defines fasting as no caloric intake for at least 8 hours. Fasting plasma glucose results between 100 to 125 mg/dL indicate increased risk for diabetes (prediabetes).Fasting plasma glucose results greater than or equal to 126 mg/dL meet the criteria for diagnosis of diabetes. In the absence of unequivocal hyperglycemia, results should be confirmed by repeat testing. In a patient with classic symptoms of hyperglycemia or hyperglycemic crisis, random plasma glucose results greater than or equal to 200 mg/dL meet the criteria for diagnosis of diabetes.Reference: Standards of Medical Care in Diabetes 2016, [place] [employer] Association. Diabetes Care. 2016.39(Suppl 1). Performed By: #### 2 4323-8 ####[facility] LABCLIA [id number] [place] [address] Potassium [Moles/Vol] 4.3 mmol/L Normal 3.7-5.1 [facility] Comment on above: Order Comment: Speci men Type: BLOOD SPECIMENOrdering Facility: [facility] Address: [address] [place] [address] Performed By: #### 2 4323-8 ####[facility] LABCLIA [id number] [place] [address] Protein [Mass/Vol] 7.6 g/dL Normal 6.3-8.0 [facility] Comment on above: Order Comment: Speci men Type: BLOOD SPECIMENOrdering Facility: [facility] Address: [address] [place] [address] Performed By: #### 2 4323-8 ####[facility] LABCLIA [id number] [place] [address] Sodium [Moles/Vol] 138 mmol/L Normal 136-144 [facility] Comment on above: Order Comment: Speci men Type: BLOOD SPECIMENOrdering Facility: [facility] Address: [address] [place] [address] Performed By: #### 2 4323-8 ####[facility] LABCLIA [id number] [place] [address] Urea nitrogen [Mass/Vol] 16 mg/dL Normal 7-21 [facility] Comment on above: Order Comment: Speci men Type: BLOOD SPECIMENOrdering Facility: [facility] Address: [address] [place] [address] Performed By: #### 2 4323-8 ####[facility] LABCLIA [id number] [place] [address] Basic Metabolic Panelon 02-20 Anion gap [Moles/Vol] 12.2 mmol/L Normal 6.0-15.0 [facility] Comment on above: Performed By: #### C BC, BMP #### [facility] [address] [id number] [facility] Calcium [Mass/Vol] 9.4 mg/dL Normal 8.6-10.3 [facility] Comment on above: Performed By: #### C BC, BMP #### [facility] [address] [place] [address] [place] Chloride [Moles/Vol] 103 mmol/L Normal 98-107 [facility] Comment on above: Performed By: #### C BC, BMP #### [facility] [address] CO2 [Moles/Vol] 25.9 mmol/L Normal 21.0-31.0 [facility] Comment on above: Performed By: #### C BC, BMP #### [facility] [address] Creatinine [Mass/Vol] 0.81 mg/dL Normal 0.60-1.20 [facility] Comment on above: Performed By: #### C BC, BMP #### [facility] [address] [place] [address] [place] Creatinine Clr Calc Pharmacy 74.58 [facility] Comment on above: Result Comment: PERF ORMED BY: [place] [address] PATHOLOGIST [employer] ALYSON YOUNG M.D. Performed By: #### C BC, BMP #### [place] [address] [place] GFR/1.73 sq M.predicted MDRD (S/P/Bld) [Vol rate/Area] mL/min/{1.73_m2} Normal [facility] Comment on above: Performed By: #### C BC, BMP #### [facility] [address] [place] [address] [place] Glucose [Mass/Vol] 244 mg/dL High 70-100 [facility] Comment on above: Result Comment: [place] om Glucose Reference Range is dependent on time and content of last meal. Glucose of more than 200 mg/dL in a nonstressed, ambulatory subject supports the diagnosis of Diabetes Mellitus. ADA recommended reference range Performed By: #### C BC, BMP #### [facility] [address] Potassium [Moles/Vol] 4.1 mmol/L Normal 3.5-5.1 [facility] Comment on above: Performed By: #### C YESSICA, BMP #### [facility] [address] Sodium [Moles/Vol] 137 mmol/L Normal 136-145 [facility] Comment on above: Performed By: #### C YESSICA, BMP #### [facility] [address] Urea nitrogen [Mass/Vol] 15 mg/dL Normal 7-25 [facility] Comment on above: Performed By: #### C YESSICA, BMP #### [facility] [address] Basophils Auto (Bld) [#/Vol] Ordered By: UGO SULLIVAN on 03-03-2023 Basophils (Bld) [#/Vol] 0.1 10*3/uL 0.0-0.2 [facility] Basophils/100 WBC Auto (Bld) Ordered By: UGO SULLIVAN on 03-03-2023 Basophils/100 WBC (Bld) 0.8 % . [facility] CNPNon 03-03-2023 CNPN Normal [facility] Calcium [Mass/volume] in Ser um or PlasmaOrdered By: UGO SULLIVAN on 03-03-2023 Calcium [Mass/Vol] 9.4 mg/dL 8.6-10.3 [facility] Carbon dioxide, total [Moles /volume] in Serum or PlasmaOrdered By: UGO SULLIVAN on 03-03-2023 CO2 [Moles/Vol] 25.9 mmol/L 21.0-31.0 [facility] Chloride [Moles/volume] in S jacquelyn or PlasmaOrdered By: UGO SULLIVAN on 03-03-2023 Chloride [Moles/Vol] 103 mmol/L 98-107 [facility] Complete Blood Count Auto Di ffon 03-03-2023 Basophils (Bld) [#/Vol] 0.1 10*3/uL Normal 0.0-0.2 [facility] Comment on above: Result Comment: PERF ORMED BY: [place] [address] PATHOLOGIST [employer] ALYSON YOUNG M.D. Performed By: #### C BC, BMP #### [address] Basophils/100 WBC (Bld) 0.8 % Normal . [facility] Comment on above: Performed By: #### C BC, BMP #### [address] Eosinophils (Bld) [#/Vol] 0.1 10*3/uL Normal 0.0-0.45 [facility] Comment on above: Performed By: #### C BC, BMP #### [address] Eosinophils/100 WBC (Bld) 1.5 % Normal . [facility] Comment on above: Performed By: #### C YESSICA, BMP #### [address] Erythrocyte distribution wid th (RBC) [Ratio] 13.6 % Normal 11.9-15.3 [facility] Comment on above: Performed By: #### C BC, BMP #### [address] Hematocrit (Bld) [Volume fraction] 38.1 % Normal 34.0-46.4 [facility] Comment on above: Performed By: #### C BC, BMP #### [address] Hemoglobin (Bld) [Mass/Vol] 13.2 g/dL Normal 11.8-15. 4 [facility] Comment on above: Performed By: #### C BC, BMP #### [address] Lymphocytes (Bld) [#/Vol] 2.2 10*3/uL Normal 1.00-4.8 [facility] Comment on above: Performed By: #### C BC, BMP #### [place] [id number] [place] Lymphocytes/100 WBC (Bld) 31.8 % Normal . [facility] Comment on above: Performed By: #### C BC, BMP #### [address] MCH (RBC) [Entitic mass] 29.7 pg Normal 24.7-34.3 [facility] Comment on above: Performed By: #### C BC, BMP #### [address] MCV (RBC) [Entitic vol] 85.7 fL Normal 80-100 [facility] Comment on above: Performed By: #### C BC, BMP #### [address] Mean Corpuscular HGB Conc 34.6 g/dL Normal 32.0-35.0 [facility] Comment on above: Performed By: #### C BC, BMP #### [address] Monocytes (Bld) [#/Vol] 0.5 10*3/uL Normal 0.0-0.8 [facility] Comment on above: Performed By: #### C BC, BMP #### [address] Monocytes/100 WBC (Bld) 7.1 % Normal . [facility] Comment on above: Performed By: #### C BC, BMP #### [address] Neutrophils (Bld) [#/Vol] 4.1 10*3/uL Normal 1.8-7.7 [facility] Comment on above: Performed By: #### C BC, BMP #### [address] Neutrophils/100 WBC (Bld) 58.8 % Normal . [facility] Comment on above: Performed By: #### C BC, BMP #### [address] NRBC% 0.1 /100{WBC} Normal 0-0.5 [facility] Comment on above: Performed By: #### C BC, BMP #### [facility] [address] Platelet mean volume (Bld) [Entitic vol] 8.2 fL Normal 6.3-10.7 [facility] Comment on above: Performed By: #### C BC, BMP #### [facility] [address] [place] [address] [place] Platelets (Bld) [#/Vol] 265 10*3/uL Normal 150-450 [facility] Comment on above: Performed By: #### C YESSICA, BMP #### [facility] [address] RBC (Bld) [#/Vol] 4.45 10*6/uL Normal 3.60-5.00 [facility] Comment on above: Performed By: #### C YESSICA, BMP #### [facility] [address] WBC (Bld) [#/Vol] 7.0 10*3/uL Normal 3.8-11.6 [facility] Comment on above: Performed By: #### C YESSICA, BMP #### [address] Creatinine [Mass/volume] in Serum or PlasmaOrdered By: UGO SULLIVAN on 03-03-2023 Creatinine [Mass/Vol] 0.81 mg/dL 0.60-1.20 [facility] ECG 12 lead ECGon 03-03-2023 ECG 12 lead ECG [facility] Main [place] [address] [place] [address] Electrocardiograph Report Signed Patient: Jyoti Enriquez MR#: [id number] : 1955 Acct:[id number] Age/Sex: 67 / F ADM Date: 03/03/23 Loc: [place] Room: Type: [facility] Attending Dr: Candido Mary MD Ordering Provider: UGO SULLIVAN DO Date of Service: 03/03/2305/14/832 ECG/ECG 12 lead ECG: preop Copies to: Test Reason : Blood Pressure : / mmHG Vent. Rate : 070 BPM Atrial Rate : 070 BPM P-R Int : 184 ms QRS Dur : 082 ms QT Int : 384 ms P-R-T Axes : 053 011 030 degrees QTc Int : 414 ms Normal sinus rhythm Normal ECG When compared with ECG of 18-SEP-2013 08:58, No significant change was found Confirmed by CANDIDO VORA DO ([id number]) on 03/03/2023 5:07:23 PM Referred By: Electronically Signed By:CANDIDO VORA DO Transcribed By: MUS Signed By Candido Vora DO 03/03 1707 Normal [facility] Eosinophils Auto (Bld) [#/Vo l]Ordered By: UGO SULLIVAN on 03-03-2023 Eosinophils (Bld) [#/Vol] 0.1 10*3/uL 0.0-0.45 [facility] Eosinophils/100 WBC Auto (Bl d)Ordered By: UGO SULLIVAN on 03-03-2023 Eosinophils/100 WBC (Bld) 1.5 % . [facility] Erythrocyte distribution wid th Auto (RBC) [Ratio]Ordered By: UGO SULLIVAN on 03-03-2023 Erythrocyte distribution wid th (RBC) [Ratio] 13.6 % 11.9-15.3 [facility] Glucose [Mass/volume] in Ser um or PlasmaOrdered By: UGO SULLIVAN on 03-03-2023 Glucose [Mass/Vol] 244 mg/dL 70-100 [facility] Comment on above: ADA recommended refe rence rangeRandom Glucose Reference Range is dependent on time and content of last meal. Glucose of more than 200 mg/dL in a nonstressed, ambulatory subject supports the diagnosis of Diabetes Mellitus. Hematocrit Auto (Bld) [Volum e fraction]Ordered By: UGO SULLIVAN on 03-03-2023 Hematocrit (Bld) [Volume fraction] 38.1 % 3 4.0-46.4 [facility] Hemoglobin [Mass/volume] in BloodOrdered By: UGO SULLIVAN on 03-03-2023 Hemoglobin (Bld) [Mass/Vol] 13.2 g/dL 11.8-15. 4 [facility] Leukocytes [#/volume] correc holley for nucleated erythrocytes in Blood by Automated counOrdered By: UGO SULLIVAN on 03-03-2023 WBC corrected for nucl RBC A uto (Bld) [#/Vol] 7.0 10*3/uL 3.8-11.6 [facility] Lymphocytes Auto (Bld) [#/Vo l]Ordered By: UGO SULLIVAN on 03-03-2023 Lymphocytes (Bld) [#/Vol] 2.2 10*3/uL 1.00-4.8 [facility] Lymphocytes/100 WBC Auto (Bl d)Ordered By: UGO SULLIVAN on 03-03-2023 Lymphocytes/100 WBC (Bld) 31.8 % . [facility] MCH Auto (RBC) [Entitic mass ]Ordered By: UGO SULLIVAN on 03-03-2023 MCH (RBC) [Entitic mass] 29.7 pg 24.7-34.3 [facility] MCHC Auto (RBC) [Mass/Vol]Or dered By: UGO SULLIVAN on 03-03-2023 MCHC (RBC) [Mass/Vol] 34.6 g/dL 32.0-35.0 [facility] MCV Auto (RBC) [Entitic vol] Ordered By: UGO SULLIVAN on 03-03-2023 MCV (RBC) [Entitic vol] 85.7 fL 80-100 [facility] Monocytes Auto (Bld) [#/Vol] Ordered By: UGO SULLIVAN on 03-03-2023 Monocytes (Bld) [#/Vol] 0.5 10*3/uL 0.0-0.8 [facility] Monocytes/100 WBC Auto (Bld) Ordered By: UGO SULLIVAN on 03-03-2023 Monocytes/100 WBC (Bld) 7.1 % . [facility] Neutrophils Auto (Bld) [#/Vo l]Ordered By: UGO SULLIVAN on 03-03-2023 Neutrophils (Bld) [#/Vol] 4.1 10*3/uL 1.8-7.7 [facility] Neutrophils/100 WBC Auto (Bl d)Ordered By: UGO SULLIVAN on 03-03-2023 Neutrophils/100 WBC (Bld) 58.8 % . [facility] No Panel InformationOrdered By: UGO SULLIVAN on 03-03-2023 Estimated GFR (CKD-EPI) > 60.0 mL/Min [facility] Creatinine Clearanc e (Chem 74.58 [facility] Nucleated erythrocytes [Pres ence] in Blood by Automated countOrdered By: UGO SULLIVAN on 03-03-2023 Nucleated RBC Auto Ql (Bld) 0.1 /100{WBC} 0-0.5 [facility] Platelet mean volume Auto (B ld) [Entitic vol]Ordered By: UGO SULLIVAN on 03-03-2023 Platelet mean volume (Bld) [Entitic vol] 8.2 fL 6.3-10.7 [facility] Platelets Auto (Bld) [#/Vol] Ordered By: UGO SULLIVAN on 03-03-2023 Platelets (Bld) [#/Vol] 265 10*3/uL 150-450 [facility] Potassium [Moles/volume] in Serum or PlasmaOrdered By: UGO SULLIVAN on 03-03-2023 Potassium [Moles/Vol] 4.1 mmol/L 3.5-5.1 [facility] RBC Auto (Bld) [#/Vol]Ordere d By: UGO SULLIVAN on 03-03-2023 RBC (Bld) [#/Vol] 4.45 10*6/uL 3.60-5.00 [facility] Serum or plasma anion gap de terminationOrdered By: UGO SULLIVAN on 03-03-2023 Anion gap [Moles/Vol] 12.2 mmol/L 6.0-15.0 [facility] Sodium [Moles/volume] in Ser um or PlasmaOrdered By: UGO SULLIVAN on 03-03-2023 Sodium [Moles/Vol] 137 mmol/L 136-145 [facility] Urea nitrogen [Mass/volume] in Serum or PlasmaOrdered By: UGO SULLIVAN on 03-03-2023 Urea nitrogen [Mass/Vol] 15 mg/dL 7-25 [facility] WBC Auto (Bld) [#/Vol]Ordere d By: UGO SULLIVAN on 03-03-2023 WBC (Bld) [#/Vol] 7.0 10*3/uL 3.8-11.6 [facility] XR chest 1V portableon 03-[address] [facility] [place] [address] [place] [address] XRay Report Signed Patient: Jyoti Enriquez MR#: [id number] : 1955 Acct:[id number] Age/Sex: 67 / F ADM Date: 03/03/23 Loc: [place] Room: Type: [facility] Attending Dr: Candido Mary MD Copies to: Candido Mary MD Ordering Provider: Candido Mary MD Date of Service: 03/03/23 XR/XR chest 1V portable: POST INFUSAPORT LEFT SIDE XR chest 1V portable 03/03/2023 12:35 PM SIGNS AND SYMPTOMS: POST INFUSAPORT LEFT SIDE PROTOCOL: Frontal radiograph of the chest COMPARISON: 09/18/2013 FINDINGS: The trachea is midline. There has been interval placement of a left-sided Rbcjwj-w-Ciqw with the tip in the cavoatrial junction in satisfactory position. There is no pneumothorax. The heart and mediastinal structures are within normal limits. The lung parenchyma is clear. The bony thorax is intact. There is anterior fusion hardware in the lower cervical spine. Degenerative changes are noted in the shoulders and thoracic spine. XR/XR chest 1V portable IMPRESSION: No acute cardiopulmonary pathology. There has been interval placement of a left-sided Qaiddw-q-Ehhv with the tip in the cavoatrial junction in satisfactory position. There is no pneumothorax. Impression dictated by: Chnadler Angel M.D.03/03/2023 12:45 PM Dictation Location: [facility]- Transcribed By: [facility] 03/03/23 1245 Dictated By: Chandler Angel II, MD 03/03/23 1241 Signed By: 03/03/23 1245 [facility] OUTSIDE SURG PATH SLIDE REVI EWon 03-01-2023 CASE REPORT Normal [place] [facility] Comment on above: Order Comment: Speci men Type: FORMALIN-FIXED PARAFFIN-EMBEDDED TISSUE SPECIMENOrdering Facility: [facility] Address: [address] [place] [address] Result Comment: Surg ica Pathology Report Case: [id number] Provider: Rosalba Reynoso MD Collected: 03/01/2023 10:46 AMOrdering Location: Hosp Lab Main Received: 03/01/2023 10:43 AMPathologist: Diomedes Larson MDSpecimen: SLIDE(S), 7 SLIDES ([id number]) Performed By: #### L [id number] ####[facility] LABCL[facility] [id number] [place] [id number] [facility] DIAGNOSIS COMMENT Immunohistochemical stains are provided by the referring institution. The invasive carcinoma is negative for estrogen receptor and negative for progesterone receptor. By report, the invasive carcinoma is negative for HER2 by IHC (score 1+). Normal [facility] Comment on above: Order Comment: Speci men Type: FORMALIN-FIXED PARAFFIN-EMBEDDED TISSUE SPECIMENOrdering Facility: [facility] Address: [address] [place] [address] Performed By: #### L [id number] ####[facility] LABCLIA [id number] [address] FINAL DIAGNOSIS Normal [facility] Comment on above: Order Comment: Speci men Type: FORMALIN-FIXED PARAFFIN-EMBEDDED TISSUE SPECIMENOrdering Facility: [facility] Address: [address] [place] [address] Result Comment: [place], [place], [id number], 01/20/2023Right breast, mass, needle core biopsy:- Invasive ductal carcinoma, provisional histologic grade 3, see comment.JJR/SUKUMAR 03/01/2023 Performed By: #### L [id number] ####[facility] LABCLIA [id number] [address] OF [facility] FINAL PERFORMING LAB [facility] Comment on above: Order Comment: Speci men Type: FORMALIN-FIXED PARAFFIN-EMBEDDED TISSUE SPECIMENOrdering Facility: [facility] Address: [address] [place] [address] Result Comment: Diag nostic interpretation performed at [facility], [address] [facility] [address] CLIA# [id number] Director: Gregg Pino M.D. Performed By: #### L [id number] ####[facility] LABCLIA [id number] [address] [place] [address] [id number] [id number] [facility] CNPNon 02-28-2023 CNPN Telephone (AVXRGN) JYOTI ENRIQUEZ ([id number]) 1955 F Date Time Provider Department 02/28/23 ROSALBA REYNOSO AVXRGN During your visit today, we recorded the following information about you: Zoe Cruz 02/28/2023 11:33 AM Signed Hello, When you are able to, can you put in an order for a diagnostic mammogram for Jyoti Enriquez please? Thank you. Rosalba Reynoso MD 02/28/2023 4:24 PM Signed Orders placed. Rosalba Reynoso MD Allergies As of Date: 02/28/2023 Noted Allergy Reaction HYDROCODONE 02/10/2018 14 - Other: See Comments 8 - GI Upset Comments: Headaches OXYCODONE 04/18/2018 8 - GI Upset Comments: Can take 1/2 tab, but full tab makes her sick 12 HOUR COLD CAPSULE 11/05/2019 5 - Intolerance ADHESIVE 03/01/2022 14 - Other: See Comments ALLER-CHLOR DECONGESTANT 03/01/2022 16 - Unknown CHLORPHENIRAMINE-PSEUDOEPHED 02/21/2023 16 - Unknown XRU-[id number]-[id number] 09/08/2017 9 - Itching DECONGEST MULTI-ACTION 12/03/2019 14 - Other: See Comments DIAZEPAM 09/22/2020 14 - Other: See Comments Comments: sick-headache DIPHENHYDRAMINE 11/05/2019 5 - Intolerance LEVOFLOXACIN 11/05/2019 5 - Intolerance NALBUPHINE 11/05/2019 2 - Rash PROGESTERONE 03/14/2018 14 - Other: See Comments 8 - GI Upset Comments: Speeds up metabolism Weight gain and voice hoarse PROMETHAZINE 01/20/2023 16 - Unknown PSEUDOEPHEDRINE 04/02/2019 14 - Other: See Comments Comments: Other Reaction(s): Hyperactive, severe stimulation Other Reaction(s): Intolerance ANY Decongestant-Hyperactive BUBZAGEHULODHOM-ER-AQEBNIPURWM 04/02/2019 5 - Intolerance Comments: ANY Decongestant-Hyperactive YEVKBZE-LBV-ISQ REDUCTASE INHIBIT*08/24/2021 14 - Other: See Comments Comments: Other Reaction(s): Unknown MORPHINE 07/05/2011 16 - Unknown 8 - GI Upset 11 - Vomiting 14 - Other: See Comments Comments: Migraine TRAMADOL 09/05/2013 9 - Itching 16 - Unknown Comments: Tooth sensitivity Only tolerates low dose Only tolerates low dose Date Reviewed: 02/28/2023 Reviewed by: Yecenia Torres RD - Fully Assessed Reason for Visit: Orders [681] Primary Visit Diagnosis:Malignant neoplasm of upper-outer quadrant of right breast in female, estrogen receptor positive (HCC) [C50.411, Z17.0] Order(s):x.ai LTD RIGHT [[id number]] Order #: [id number] FUTURE Prescriptions as of 05/05/2023 - metFORMIN (GLUCOPHAGE) 500 mg tablet Take 1 tablet by mouth every 12 hours. - sennosides (LAXATIVE ORAL) Take by mouth daily at bedtime. - OLANZapine (ZYPREXA) 5 mg tablet Take 1 tablet by mouth daily at bedtime. - ondansetron (ZOFRAN) 8 mg tablet Take 1 tablet by mouth every 8 hours as needed for nausea/vomiting. - diazePAM (VALIUM) 2 mg tablet as needed. - dicyclomine (BENTYL) 20 mg tablet q 8 HR. - HYDROcodone-Acetaminophen 10-300 mg tab Take 1 tablet every 6 hours by oral route. - hyoscyamine sublingual (LEVSIN SL) 0.125 mg DISSOLVE 1 TABLET UNDER THE TONGUE EVERY 6 HOURS NEEDED - ibuprofen (MOTRIN) 600 mg tablet Take 400 mg by mouth at bedtime as needed. - meclizine (ANTIVERT) 25 mg tab TAKE 1-2 TABLETS BY MOUTH FOUR TIMES A DAY NEEDED FOR DIZZINESS - ondansetron orally disintegrating (ZOFRAN ODT) 4 mg disintegrating tablet - pantoprazole DR (PROTONIX) 40 mg tablet Take 40 mg by mouth. - scopolamine (TRANSDERM-SCOP) patch 1.5 mg/72 hr (delivers 1 mg over 3 days) APPLY ONE PATCH ON THE SKIN EVERY 3 DAYS. REMOVE OLD PATCH - simvastatin (ZOCOR) 10 mg tablet TAKE ONE-HALF TABLET BY MOUTH EVERY NIGHT - triamcinolone acetonide (KENALOG) 0.1 % cream Apply to affected area. - eletriptan (RELPAX) 40 mg tablet TAKE 1 TABLET BY MOUTH AT ONSET OF MODERATE TO SEVERE MIGRAINE. MAY REPEAT DOSE IN 2 HOURS. MAX OF 2 DOSES IN 24 HOURS, 2 DAYS A WEEK - levothyroxine (SYNTHROID) 50 mcg tablet - aspirin/acetaminophen/caffeine (EXCEDRIN MIGRAINE ORAL) Excedrin Migraine as needed - blood sugar diagnostic (ONETOUCH VERIO TEST STRIPS) test strip OneTouch Verio test strips Problem List As Of Date 02/28/2023 Noted Resolved Paraesophageal hernia [K44.9] 02/26/2021 Hiatal hernia with gastroesophageal reflux [K44*01/22/1996 Diabetes type 2, controlled (HCC) [E11.9] 02/14/2017 Mixed hyperlipidemia [E78.2] 07/05/2011 Essential (primary) hypertension [I10] 04/27/2021 Postural orthostatic tachycardia syndrome [G90.*10/24/2017 Migraine [G43.909] 04/27/2021 Hiatal hernia [K44.9] 04/29/2021 Obesity, Class I, BMI 30-34.9 [E66.9] 04/30/2021 Nausea without vomiting [R11.0] 04/30/2021 Malignant neoplasm of upper-outer quadrant of r*02/21/2023 Encounter Status:Closed by ZOE CRUZ on 05/05/23 [facility] 02-25-2023 [facility] 02-24-[facility]23 [facility]-2023 CNPN Normal [facility] CNPNon 02-22-2023 CNPN Normal [facility] CNOVSPon 02-21-2023 CNOVSP Normal [facility] ANES POSTPROC EVALon 023 ANES POSTPROC EVAL Normal [facility] ANES PRE-OPon 10-15-2022 ANES PRE-OP Normal [place] [facility] [place] NURSING PROGon 10-15-2022 NURSING PROG Normal [place] [facility] [place] [facility] [place] [facility] 023 Upper GI endoscopy Normal [facility] Formson 09-09-2022 Forms [id number] :127 Normal [facility] Ambulatory Visit Summaryon 0 09-07-2022 Ambulatory Visit Summary JYOTI ENRIQUEZ :1955 Visit Date:09/07/2022 Ambulatory Visit Instructions Your Care Team Attending Physician - FRENCH BROOKS, Jt Myers Primary Care Physician - Pankaj Osei MD This Is Your Medications List eletriptan (Relpax 40 mg Tab) levothyroxine (levothyroxine 50 mcg (0.05 mg) Tab) pantoprazole (Protonix 40 mg Tab-DR) scopolamine (scopolamine 1 mg/72 hr transdermal film, extended release) simvastatin (simvastatin 10 mg Tab) Procedures Performed Colonoscopy (03/30/2016), Colonoscopy (03/22/2016), EGD - Esophagogastroduodenoscopy (03/22/2016), Colonoscopy (05/22/2010), EGD - Esophagogastroduodenoscopy (05/22/2010), Small bowel resection (05/2009), Appendectomy, Arthroscopy of knee, Bone spur, Cervical spinal fusion, Cervical spinal fusion, Discectomy, Endoscopic radiofrequency ablation of esophageal epithelium, Excision of hand lesion, Excision of lipoma, LASIK, Zain fundoplication, Sinus, Small bowel resection, TYSON BSO - Total abdominal hysterectomy and bilateral salpingo-oophorectomy, Tonsils and adenoids. Discharge Vitals Heart Rate (Peripheral) 80 Respiratory Rate 16 Blood Pressure 128/90 Height 167.6 cm Height 66 in Weight 89.1 kg Weight 196.02 lb BMI 31.72 Medications What How Much When Instructions Unchanged eletriptan (Relpax 40 mg Tab) 1 Tablets By Mouth Once as needed for for migraine headache Unchanged levothyroxine (levothyroxine 50 mcg (0.05 mg) Tab) 1 Tablets By Mouth Every day Unchanged pantoprazole (Protonix 40 mg Tab-DR) 1 Tablets By Mouth Every day Unchanged scopolamine (scopolamine 1 mg/ 72 hr transdermal film, extended release) 1 patch Topical Every 72 hours Unchanged simvastatin (simvastatin 10 mg Tab) 0.5 Tablets By Mouth Once a day (at bedtime) Allergies Benadryl (Hyperactive) Decongestant (Hyperactive) Levaquin (Unknown) Nubain (Insomnia) morphine (Nausea and vomiting, Headache) statins (Unknown) Problems Ongoing - Any problem that you are currently receiving treatment for. Autonomic dysfunction Day's esophagus BMI 31.0-31.9,adult Cervical radiculopathy Diabetes Diverticulitis Eczema Fatty liver Fibrocystic breast Gastric polyp GERD (gastroesophageal reflux disease) Herniated cervical disc Hiatal hernia History of colonic polyps HTN (hypertension) Hypercholesterolemia Hyperhidrosis IBS (irritable bowel syndrome) Iron deficiency anemia Lumbar spondylosis Meckel diverticulum Migraine Osteoporosis POTS (postural orthostatic tachycardia syndrome) Rosacea Thyroid nodule Tricuspid regurgitation Historical - Any problem that you are no longer receiving treatment for. Alberto disease UTI (urinary tract infection) Normal [facility] Historical Records Officeon 08-27-2022 Historical Records Office [id number]:127 Normal [facility] Physician Referralon 023 Physician Referral [id number]:127 Normal [facility] MG MAMM SCREEN 3D KATERINA CADon 08-02-2022 MG MAMM SCREEN 3D KATERINA CAD Patient: JYOTI ENRIQUEZ Exam Date: 08/02/2022 : 1955 Gender:F Ordering : DR. SOFIA JOHNS D.O. Admission #: [id number] Family : DR PANKAJ OSEI . Order #: [id number] CLICK HERE TO VIEW EXAM RADIOLOGY REPORT PROCEDURE: MAMMOGRAM SCREENING 3D BILATERAL CAD COMPARISON: MG MAMM SCREEN 3D KATERINA CAD, 07/30/2021. MG MAMM LT DIAG W CAD, 06/09/2020. INDICATIONS: Screening mammography Calculator Name NCI Breast Cancer Risk Assessment Tool 5 Year Breast Cancer Risk 2.20% Lifetime Breast Cancer Risk 8.30% Personal Breast Cancer No Personal Ovarian Cancer No Treatments None Family Cancers None LOCATION: [facility] BREAST COMPOSITION: Heterogeneously dense,which may obscure small masses. FINDINGS: DIAGNOSTIC CATEGORY 2--BENIGN FINDING. NO CHANGE FROM COMPARISON. Scattered benign-appearing nodules are present. Scattered benign-appearing calcifications are present. Scattered benign-appearing lymph nodes are present. RIGHT BREAST: No significant suspicious finding. Stable micro clip marker lower inner quadrant LEFT BREAST: No significant suspicious finding. Stable micro clip marker upper inner quadrant RECOMMENDATIONS: ROUTINE MAMMOGRAM AND CLINICAL EVALUATION IN 12 MONTHS. PLEASE NOTE: A NORMAL MAMMOGRAM DOES NOT EXCLUDE THE POSSIBILITY OF BREAST CANCER. A CLINICALLY SUSPICIOUS PALPABLE LUMP SHOULD BE BIOPSIED. Dictated by: Ugo Meyer MD on 08/02/2022 at 11:59 Approved by: Ugo Meyer MD on 08/02/2022 at 12:01 Normal [facility] l INSULINon 04-09-2022 Insulin 20.0 uIU/mL Normal 2.6-24.9 [facility] Comment on above: Performed By: #### I NSULIN #### [facility] [address] [place] [address] Dr. Leila Palafox CBC AUTO DIFFon 04-08-2022 BASO # 0.1 103/ul Normal 0.0-0.1 [facility] ospital Comment on above: Performed By: #### C BC #### [facility] [address] [place] [address] [address] Leila Palafox Basophils/100 WBC (Bld) 0.7 % Normal 0.2-2.0 [facility] Comment on above: Performed By: #### C BC #### [facility] [address] [place] [address] Dr. Leila Palafox EO # 0.1 103/ul Normal 0.0-0.7 [facility] ospital Comment on above: Performed By: #### C BC #### [facility] [address] [place] [address] Dr. Leila Palafox Eosinophils/100 WBC (Bld) 2.0 % Normal 0.9-7.0 [facility] Comment on above: Performed By: #### C BC #### [facility] [address] [place] [address] Dr. Leila Palafox Erythrocyte distribution wid th (RBC) [Ratio] 12.2 % Normal 11.0-15.0 The [facility] Comment on above: Performed By: #### C BC #### [facility] [address] [place] [address] Dr. Leila Palafox Hematocrit (Bld) [Volume fraction] 40.7 % Normal 3 6.0-48.0 [facility] Comment on above: Performed By: #### C BC #### [facility] [address] [place] [address] Dr. Leila Palafox Hemoglobin (Bld) [Mass/Vol] 13.5 g/dL Normal 12.0-16. 0 [facility] Comment on above: Performed By: #### C BC #### [facility] [address] [place] [address] Dr. Leila Palafox IG # 0.01 10e3/ul Normal 0.00-0.03 [facility] Comment on above: Performed By: #### C BC #### [facility] [address] [place] [address] Dr. Leila Palafox IG % 0.1 % Normal 0.0-0.5 [facility] Comment on above: Performed By: #### C BC #### [facility] [address] [place] [address] Dr. Leila Palafox LYMPH # 2.8 103/ul Normal 1.2-3.8 [facility] Comment on above: Performed By: #### C BC #### [facility] [address] [place] [address] Dr. Leila Plaafox Lymphocytes/100 WBC (Bld) 38.9 % Normal 20.5-60.0 [facility] Comment on above: Performed By: #### C BC #### [facility] [address] [place] [address] Dr. Leila Palafox MANUAL DIFF REQ NO Normal [facility] Comment on above: Performed By: #### C BC #### [facility] [address] [place] [address] Dr. Leila Palafox MCH (RBC) [Entitic mass] 29.7 pg Normal 26.7-34.0 [facility] Comment on above: Performed By: #### C BC #### [facility] [address] [place] [address] Dr. Leila Palafox MCHC (RBC) [Mass/Vol] 33.2 g/dL Normal 29.9-35.2 [facility] Comment on above: Performed By: #### C BC #### [facility] [address] [place] [address] Dr. Leila Palafox MCV (RBC) [Entitic vol] 89.6 fL Normal 81.0-99.0 [facility] Comment on above: Performed By: #### C BC #### [facility] [address] [place] [address] Dr. Leila Palafox MONO # 0.4 103/ul Normal 0.3-0.8 [facility] Comment on above: Performed By: #### C BC #### [facility] [address] [place] [address] Dr. Leila Palafox Monocytes/100 WBC (Bld) 5.9 % Normal 1.7-12.0 [facility] Comment on above: Performed By: #### C BC #### [facility] [address] [place] [address] Dr. Leila Palafox NEUT # 3.8 103/ul Normal 1.4-6.5 [facility] Comment on above: Performed By: #### C BC #### [facility] [address] [place] [address] Dr. Leila Palafox Neutrophils/100 WBC (Bld) 52.4 % Normal 43.0-75.0 [facility] Comment on above: Performed By: #### C BC #### [facility] [address] [address] [address] Leila Palafox Platelet mean volume (Bld) [Entitic vol] 9.4 fL Critically low 9.5-13.5 [facility] above: Performed By: #### C BC #### [facility] [address] [place] [address] Dr. Leila Palafox PLT 365 103/ul Normal 150-450 [facility] ostal Comment on above: Performed By: #### C BC #### [facility] [address] [place] [address] Dr. Leila Palafox RBC 4.54 106/ul Normal 4.20-5.40 [facility] Comment on above: Performed By: #### C BC #### [facility] [address] [place] [address] Dr. Leila Palafox WBC 7.2 103/ul Normal 4.0-11.0 [facility] Comment on above: Performed By: #### C BC #### [facility] [address] [place] [address] Dr. Leila Palafox FREE THYROXINE INDEX T7on FTI 2.87 Normal 1.30-4.50 [facility] Comment on above: Performed By: #### C MP, T7, TSH, LIPID #### [facility] [address] [place] [address] Dr. Leila Palafox T3U 29.0 % Critically low 30.0-39.0 [facility] Comment on above: Performed By: #### C MP, T7, TSH, LIPID #### [facility] [address] [place] [address] Dr. Leila Palafox T4 [Mass/Vol] 9.90 ug/dL Normal 4.80-13.90 [facility] Comment on above: Performed By: #### C MP, T7, TSH, LIPID #### [facility] [address] [place] [address] Dr. Leila Palafox GLYCOHEMOGLOBIN A1Con 2021 ADA RECOMMENDATION SEE BELOW Normal [facility] Comment on above: Result Comment: ADA RECOMMENDED LIMIT 4.0 - 6.0 ADA THERAPEUTIC TARGET < 7.0 ACTION SUGGESTED > 7.0 Performed By: #### A 1C ####[facility] [id number] [place] [id number]. Leila Palafox Glucose [Mass/Vol] 189 mg/dL Normal [facility] Comment on above: Performed By: #### A 1C ####[facility] [address] [place] [id number]. Leila Palafox HbA1c (Bld) [Mass fraction] 8.2 % Critically high 4.5 -6.2 [facility] Comment on above: Performed By: #### A 1C ####[facility] [address] [place] [address]Dr. Leila Palafox IRONon 04-08-2022 Iron [Mass/Vol] 59.0 ug/dL Normal 50.0-170.0 [facility] Comment on above: Performed By: #### I FANG #### [facility] [address] [address] [address] Leila Palafox LIPID PROFILEon 04-08-2022 CHOL-HDL RATIO NORM SEE BELOW Normal [facility] Comment on above: Result Comment: 3.3 - 4.4 LOW RISK 4.4 - 7.1 AVERAGE RISK 7.1 - 11.0 MODERATE RISK >11.0 HIGH RISK Performed By: #### C MP, T7, TSH, LIPID #### [facility] [address] [address] [address] Leila Palafox Cholesterol [Mass/Vol] 293 mg/dL Critically high <=200 [facility] Comment on above: Performed By: #### C MP, T7, TSH, LIPID #### [facility] [address] [address] [address] Leila Palafox Cholesterol in HDL [Mass/Vol] 45 mg/dL Normal 40-60 [facility] Comment on above: Performed By: #### C MP, T7, TSH, LIPID #### [facility] [address] [address] [address] Leila Palafox Cholesterol in LDL [Mass/Vol] 192.4 mg/dL Normal [facility] Comment on above: Performed By: #### C MP, T7, TSH, LIPID #### [facility] [address] [address] [address] Leila Palafox Cholesterol.total/Cholestero l in HDL [Mass ratio] 6.5 {ratio} Normal [facility] Comment on above: Performed By: #### C MP, T7, TSH, LIPID #### [facility] [address] [address] [address] Leila Palafox HDL NORMAL > or = 60 mg/dl - LO W CARDIOVASCULAR RISK <40 mg/dl - HIGH CARDIOVASCULAR RISK Normal [facility] Comment on above: Performed By: #### C MP, T7, TSH, LIPID #### [facility] [address] [address] [address] Leila Palafox LDL CALC NORMAL SEE BELOW Normal [facility] Comment on above: Result Comment: <100 mg/dl OPTIMAL 100 - 129 mg/dl NEAR OR ABOVE OPTIMAL 130 - 159 mg/dl BORDERLINE HIGH 160 - 189 mg/dl HIGH >190 mg/dl VERY HIGH Performed By: #### C MP, T7, TSH, LIPID #### [facility] [address] [place] [address] Dr. Leila Palafox Triglyceride [Mass/Vol] 278 mg/dL Critically high <=150 [facility] Comment on above: Performed By: #### C MP, T7, TSH, LIPID #### [facility] [address] [address] [address] Leila Palafox VLDL CALC 55.6 mg/dL Normal [facility] Comment on above: Performed By: #### C MP, T7, TSH, LIPID #### [facility] [address] [address] [address] Leila Palafox PROF 14(COMP METB)on 022 Albumin [Mass/Vol] 3.5 g/dL Normal 3.4-5.0 [facility] Comment on above: Performed By: #### C MP, T7, TSH, LIPID #### [facility] [address] [address] [address] Leila Palafox Albumin/Globulin [Mass ratio] 0.9 {ratio} Normal [facility] Comment on above: Performed By: #### C MP, T7, TSH, LIPID #### [facility] [address] [address] [address] Leila Palafox ALP [Catalytic activity/Vol] 109 U/L Normal 46-116 [facility] Comment on above: Performed By: #### C MP, T7, TSH, LIPID #### [facility] [address] [address] [address] Leila Palafox ALT [Catalytic activity/Vol] 78 U/L Critically high 14 -59 [facility] Comment on above: Performed By: #### C MP, T7, TSH, LIPID #### [facility] [address] [place] [address] Dr. Leila Palafox Anion gap [Moles/Vol] 11.7 mmol/L Normal [facility] Comment on above: Performed By: #### C MP, T7, TSH, LIPID #### [facility] [address] [address] [address] Leila Palafox AST [Catalytic activity/Vol] 52 U/L Critically high 15 -37 [facility] Comment on above: Performed By: #### C MP, T7, TSH, LIPID #### [facility] [address] [address] [address] Leila Palafox Bilirubin [Mass/Vol] 0.2 mg/dL Normal 0.2-1.0 [facility] Comment on above: Performed By: #### C MP, T7, TSH, LIPID #### [facility] [address] [address] [address] Leila Palafox Calcium [Mass/Vol] 9.2 mg/dL Normal 8.5-10.1 [facility] Comment on above: Performed By: #### C MP, T7, TSH, LIPID #### [facility] [address] [address] [address] Leila Palafox Chloride [Moles/Vol] 102 mmol/L Normal 98-107 [facility] Comment on above: Performed By: #### C MP, T7, TSH, LIPID #### [facility] [address] [place] [address] Dr. Leila Palafox CO2 [Moles/Vol] 29.2 mmol/L Normal 21.0-32.0 [facility] Comment on above: Performed By: #### C MP, T7, TSH, LIPID #### [facility] [address] [place] [address] Dr. Leila Palafox Creatinine [Mass/Vol] 0.75 mg/dL Normal 0.55-1.02 [facility] Comment on above: Performed By: #### C MP, T7, TSH, LIPID #### [facility] [address] [place] [address] Dr. Leila Palafox EGFR-AF VINCENTIAN >60 Normal >=60 [facility] Comment on above: Performed By: #### C MP, T7, TSH, LIPID #### [facility] [address] [place] [address] Dr. Leila Palafox EGFR-NON AF VINCENTIAN >60 Normal >=60 [facility] Comment on above: Performed By: #### C MP, T7, TSH, LIPID #### [facility] [address] [place] [address] Dr. Leila Palafox Globulin (S) [Mass/Vol] 3.8 g/dL Normal [facility] Comment on above: Performed By: #### C MP, T7, TSH, LIPID #### [facility] [address] [place] [address] Dr. Leila Palafox Glucose [Mass/Vol] 150 mg/dL Critically high 74-106 [facility] Comment on above: Performed By: #### C MP, T7, TSH, LIPID #### [facility] [address] [place] [address] Dr. Leila Palafox Potassium [Moles/Vol] 3.9 mmol/L Normal 3.5-5.1 [facility] Comment on above: Performed By: #### C MP, T7, TSH, LIPID #### [facility] [address] [place] [address] Dr. Leila Palafox Protein [Mass/Vol] 7.3 g/dL Normal 6.4-8.2 [facility] Comment on above: Performed By: #### C MP, T7, TSH, LIPID #### [facility] [address] [place] [address] Dr. Leila Palafox Sodium [Moles/Vol] 139 mmol/L Normal 136-145 [facility] Comment on above: Performed By: #### C MP, T7, TSH, LIPID #### [facility] [address] [place] [address] Dr. Leila Palafox Urea nitrogen [Mass/Vol] 11.0 mg/dL Normal 7.0-18.0 [facility] Comment on above: Performed By: #### C MP, T7, TSH, LIPID #### [facility] [address] [place] [address] Dr. Leila Palafox Urea nitrogen/Creatinine [Mass ratio] 14.7 mg/mg Normal [facility] Comment on above: Performed By: #### C MP, T7, TSH, LIPID #### [facility] [address] [place] [address] Dr. Leila Palafox TSHon 04-08-2022 TSH 2.162 uIU/mL Normal 0.358-3.740 [facility] Comment on above: Performed By: #### C MP, T7, TSH, LIPID #### [facility] [address] [place] [address] Dr. Leila Palafox Office Visiton 03-01-2022 Follow-up visit [id number] Jyoti Enriquez 1955 F Date Provider Department Center 03/01/2022 287-JAYNA ANDERSON [facility] No family history on file Level of Service:82918 AR OFFICE/OUTPATIENT ESTABLISHED HIGH MDM 40-54 MIN Normal [facility] EGD DIAGNOSTICon 02-16-2022 [facility] GLUCOSE, BLOOD (POC)on 02-16 Glucose [Mass/Vol] 156 mg/dL Abnormal 74 - 99 mg/dL [facility] Glucose [Mass/Vol] 152 mg/dL Abnormal 74 - 99 mg/dL [facility] CBC panel Auto (Bld)on 01-04 Erythrocyte distribution wid th (RBC) [Ratio] 13.5 % 11.5 - 15.0 % [facility] Hematocrit (Bld) [Volume fraction] 38.7 % 36.0 - 46.0 % [facility] Hemoglobin (Bld) [Mass/Vol] 13.0 g/dL 11.5 - 1 5.5 g/dL [facility] MCH (RBC) [Entitic mass] 31.3 pg 26.0 - 34.0 pg [facility] MCHC (RBC) [Mass/Vol] 33.6 g/dL 30.5 - 36.0 g/ dL [facility] MCV (RBC) [Entitic vol] 93.0 fL 80.0 - 100.0 fL [facility] Nucleated RBC (Bld) [#/Vol] 0.02 10*3/uL High <0.01 k/uL [facility] Platelet mean volume (Bld) [Entitic vol] 9.9 fL 9.0 - 12.7 fL [facility] Platelets (Bld) [#/Vol] 354 10*3/uL 150 - 400 k /uL [facility] RBC (Bld) [#/Vol] 4.16 10*6/uL 3.90 - 5.20 m/uL [facility] WBC (Bld) [#/Vol] 9.86 10*3/uL 3.70 - 11.00 k/u L [facility] FLUORO FOR SURGICAL PROCEDUR ESon 04-18-2018 FLUORO FOR SURGICAL PROCEDURES FLUORO FOR SURGICAL PROCEDURES : 04/18/2018 6:30 AMCLINICAL HISTORY: ACDIF .COMPARISON: None available.Intraoperative fluoroscopy was provided for Dr. Pulliam's procedure.A total of 11.4 seconds of fluoroscopy was used, with 4 fluoroscopic stills saved. No diagnostic images were obtained.Please see Dr. Pulliam's surgical notes for completeness.Interpreted by:GRABIEL Galavizigned by:Candido Moon MD04/18/18inal result Normal [facility] POCT Glucoseon 04-18-2018 Glucose mass conc 128 mg/dL Critically high 60-115 [facility] POC Performed on ACCU-CHEK Normal [facility] Glucose mass conc 118 mg/dL Critically high 60-115 [facility] POC Performed on ACCU-CHEK Normal [facility] Surgical Specimenon 04-18-20 Surgical Specimen Invalid Interpretation Code [facility] Comment on above: Result Comment: [facility] [address] [id number] [phone] SURGICAL PATHOLOGY REPORTPatient Name: TRENA ENRIQUEZ Accession No: [id number] Age Sex: 1955 Location: DIS ORPOOLNONAccount No: [id number] Collected: 04/18/2018Med Rec No: [id number] Received: 04/18/2018Attend Phys: VILMA DENI Completed: 04/19/2018Perform Phys: VILMA YOOFINAL DIAGNOSIS:DISK-VERTEBRAL DISK MATERIAL WITH DEGENERATIVE CHANGES. ALIFA/ALIFACLINICAL INFORMATION:Disk. Herniated nucleus pulposus C4-5.SPECIMEN:DiscGROSS DESCRIPTION:Specimen received in formalin in a container labeled with patient's nameand designated as spine . Specimen consists of grayish-white soft firmtissue fragments measuring 1.4 cm in greatest dimension. Submitted intoto in one cassette. ALIFA/UBALDOT: [id number] CURRAN M.D. 04/19/2018 Electronically signed out by Page 1 of 1 Basic Metabolic Panelon - Anion gap 3 molar conc 14 mmol/L Critically high 7-13 [facility] Calcium mass conc 10.0 mg/dL Normal 8.6-10.2 [facility] Chloride molar conc 102 mmol/L Normal 98-107 [facility] CO2 molar conc 24 mmol/L Normal 22-29 [facility] Creatinine mass conc 0.64 mg/dL Normal 0.50-0.90 [facility] GFR/1.73 sq M predicted among blacks MDRD vol rate/area (S/P/Bld) mL/min/{1.73_m2} Normal >60 [facility] Comment on above: Result Comment: >60 mL/min/1.73m2 EGFR, calc. for ages 18 and older using theMDRD formula (not corrected for weight), is valid for stablerenal function. GFR/1.73 sq M.predicted MDRD vol rate/area mL/min/{1.73_m2} Normal >60 [facility] Comment on above: Result Comment: >60 mL/min/1.73m2 EGFR, calc. for ages 18 and older using theMDRD formula (not corrected for weight), is valid for stablerenal function. Glucose mass conc 103 mg/dL Normal 74-109 [facility] Potassium molar conc 4.1 mmol/L Normal 3.5-5.1 [facility] Sodium molar conc 140 mmol/L Normal 132-144 [facility] Urea nitrogen mass conc 15 mg/dL Normal 8-23 [facility] CBC With Platelet No Differe ntialon 04-17-2018 Erythrocyte distribution width Auto Ratio (RBC) 15.7 % Critically high 11.5-14.5 [facility] Hematocrit Auto Volume Fraction (Bld) 35.3 % Low 37.0-47.0 [facility] Hemoglobin mass conc (Bld) 11.8 g/dL Low 12.0-16.0 [facility] MCH Auto Entitic mass (RBC) 26.6 pg Low 27.0-31.3 [facility] MCHC Auto mass conc (RBC) 33.4 % Normal 33.0-37.0 [facility] MCV Auto Entitic volume (RBC) 79.8 fL Low 82.0-100.0 [facility] Platelets Auto #/vol (Bld) 383 10*3/uL Normal 130-400 [facility] RBC Auto #/vol (Bld) 4.43 10*6/uL Normal 4.20-5.40 [facility] WBC Auto #/vol (Bld) 9.0 10*3/uL Normal 4.8-10.8 [facility] Culture, MRSA Screenon 04-17 Culture, MRSA Screen O RDERED BY: MAURICIO ARRIETA: Nares Nasal COLLECTED: 04/17/18 08:30ANTIBIOTICS AT GEO.: RECEIVED : 04/17/18 08:30Culture, MRSA Screen FINAL 04/18/18 11:15 No MRSA isolated Normal [facility] Partial Thromboplastin Timeo n 04-17-2018 aPTT Coag time (Bld) 24.0 s Normal 21.6-35.4 [facility] Comment on above: Result Comment: Hepa rin Therapeutic Range: 39.0 - 65.0 seconds.Effective 03/31/18 10:00amPlease note therapeutic ranges have changed. Prothrombin Timeon 8 INR Coag RelTime (PPP) 1.0 {INR} Normal [facility] Comment on above: Result Comment: Nixon mmended INR therapeutic ranges for oral anticoagulanttherapyProphylaxis/treatment of: INR Venous Thrombosis, Pulmonary Embolism 2.0-3Prevention of Systemic Embolism from: Atrial Fibrillation 2.0-3.0 Myocardial Infarction 2.0-3.0 Mechanical Prosthetics Heart Valves 2.5- 3.5 Recurrent Systemic Embolism 2.5-3.5Guidelines for patients with coagulopathy, e.g. liver disease:Use the Protime resulted in seconds. Mild 12.9-17.0 sec Moderate 17.1-22.6 sec Severe G.T. 22.6 sec Prothrombin time (PT) Coag t jatin (PPP) 10.1 s Normal 9.6-12.3 [facility] Type and Screen Capture 3 sc rn cellon 04-17-2018 Bilirubin mass conc PATIENT: MINA ALBRECHT L OC: JOINER BILL# : [id number] : 1955 SEX: FORDERED BY: MEENAKSHI ALARCON ORDERED : 04/17/2018 07:49 COLLECTED: 04/17/2018 08:33ORDER : [id number] RECEIVED : 04/17/2018 08:33 Confirmation type needs to be drawn. ----TEST NAME RESULT UNITS RANGES ABN FL STABORH Capture A NEG FAntibody 3 Cell Scrn Captu NEG F Normal [facility] Urinalysis, reflex to cultur sarah 04-17-2018 Clarity Nom (U) Clear Normal Clear [facility] Bilirubin Ql (U) Negative Normal Negative [facility] Color Nom (U) Yellow Normal [facility] Glucose Ql (U) Negative Normal Negative [facility] Hemoglobin Test strip Ql (U) Negative Normal Negative [facility] Ketones Ql (U) Negative Normal Negative [facility] Leukocyte esterase Test strip Ql (U) Negative Normal Negative [facility] Nitrite Test strip Ql (U) Negative Normal Negative [facility] pH Test strip (U) 6.5 [pH] Normal 5.0-9.0 [facility] Protein Test strip Ql (U) Negative Normal Negative [facility] Specific gravity Relative Density (U) 1.003 Normal 1.005-1.03 [facility] Urine Reflexed to Culture Not Indicated Normal [facility] Urobilinogen Test strip Qn (U) 0.2 {Ryanne'U}/dL Normal < 2.0 [facility] COMP METABOLIC PANELon 12-13 Alanine aminotransferase (ALT) 46 U/L Normal 7-52 [facility] Comment on above: Performed By: #### 0 0121, [id number] ####[facility] [facility] [place] [address], [facility] Albumin 4.2 g/dL Normal 3.5-5.7 [facility] Comment on above: Performed By: #### 0 0121, 32406 ####[facility] [facility] [place] [address], [facility] ALKALINE PHOSPH 99 IU/L Normal 34-104 [facility] Comment on above: Performed By: #### 0 012, 33887 ####[facility] [facility].[address] Aspartate aminotransferase (AST) 56 U/L High 13- 39 [facility] Comment on above: Performed By: #### 0 012, 18829 ####[facility] [facility].[address] Bilirubin (total) 0.3 mg/dL Normal 0.3-1.0 [facility] Comment on above: Performed By: #### 0 012, 47038 ####[facility] [facility].[address] Calcium 9.5 mg/dL Normal 8.6-10.3 [facility] Comment on above: Performed By: #### 0 012, 74210 ####[facility] [facility].[address] Chloride 102 mmol/L Normal 98-107 [facility] Comment on above: Performed By: #### 0 012, 74989 ####[facility] [facility].[address] CO2 24 mmol/L Normal 21-31 [facility] Comment on above: Performed By: #### 0 012, 12161 ####[facility] [facility].[address] Creatinine 0.78 mg/dL Normal 0.60-1.20 [facility] Comment on above: Performed By: #### 0 0121, 17424 ####[facility] [facility].[address] eGFR (black) mL/min/{1.73_m2} Normal >60 [facility] Comment on above: Performed By: #### 0 012, 53513 ####[facility] eGFR (non-black) mL/min/{1.73_m2} Normal >60 [facility] Comment on above: Performed By: #### 0 0121, 59566 ####[facility] [place] [address], [facility] Glucose mass conc 168 mg/dL High 70-100 [facility] Comment on above: Performed By: #### 0 0121, [id number] ####[id number] [facility].[address] Potassium molar conc 3.5 mmol/L Normal 3.5-5.1 [facility] Comment on above: Performed By: #### 0 0121, 96798 ####[id number] [facility].[address] Protein 7.6 g/dL Normal 6.0-8.3 [facility] Comment on above: Performed By: #### 0 0121, 46341 ####[address] [facility].[address] Sodium 136 mmol/L Normal 136-145 [facility] Comment on above: Performed By: #### 0 0121, 45615 ####[id number] Urea nitrogen 9 mg/dL Normal 7-25 [facility] Comment on above: Performed By: #### 0 0121, 47866 ####[facility] [facility].[address] FERRITINon 12-13-2016 FERRITIN 17 ng/mL Normal 11-307 [facility] Comment on above: Performed By: #### 0 0121, 73444 ####[facility] HEP B CORE AB TOTALon 2016 HEP B CORE AB Negative Normal NEGATIVE [facility] Comment on above: Performed By: #### 3 0515, 86154, 08976 ####[facility] HEP B SURF AB QNTon 12-14-19 17 HEP B SURF AB QNT <5 Normal [facility] Comment on above: Result Comment: REFE RENCE RANGE:<9 mIU/mL NONREACTIVE9-11 mIU/mL BORDERLINE: Suggest re-testing in 2-3 weeks>11 mIU/mL REACTIVE Performed By: #### 3 0515, 25498, 42979 ####[facility] HEP B SURF AGon 12-13-2016 HEP B SURF AG NON-REACTIVE Normal NON-REACTIVE [facility] Comment on above: Performed By: #### 3 0515, 74689, 22421 ####[facility] Vital Signs Date Time Vital Sign Value Performing Clinician Facility 05-06-2023 13:13-0500 Body temperature 98.4 [degF] [facility] Work Phone: [facility] 05-06-2023 13:13-0500 Diastolic blood pressure 61 mm[Hg] [employer] Work Phone: [facility] 05-06-2023 13:13-0500 Heart rate 88 /min [employer] Work Phone: [facility] 05-06-2023 13:13-0500 Respiratory rate 18 /min [employer] Work Phone: [facility] 05-06-2023 13:13-0500 SaO2% (BldA) [Mass fraction] 96 % [employer] Work Phone: [facility] 05-06-2023 13:13-0500 Systolic blood pressure 106 mm[Hg] Chair Williams Work Phone: [facility] 05-03-2023 14:20-0500 Body temperature 97.39 [degF] Chair Senthil Work Phone: [facility] 05-03-2023 14:20-0500 Diastolic blood pressure 79 mm[Hg] Chair Williams Work Phone: [facility] 05-03-2023 14:20-0500 Heart rate 95 /min Chair Williams Work Phone: [facility] 05-03-2023 14:20-0500 Respiratory rate 18 /min Chair Williams Work Phone: [facility] 05-03-2023 14:20-0500 SaO2% (BldA) [Mass fraction] 96 % Chair Williams Work Phone: [facility] 05-03-2023 14:20-0500 Systolic blood pressure 123 mm[Hg] Chair Senthil Work Phone: [facility] 04-29-2023 09:17-0500 Body height 166.2 cm Paulo Singh MD Work Phone: [facility] 04-29-2023 09:17-0500 Body temperature 97.59 [degF] Paulo Singh MD Work Phone: [facility] 04-29-2023 09:17-0500 Body weight 82.1 kg Paulo Singh MD Work Phone: [facility] 04-29-2023 09:17-0500 Diastolic blood pressure 68 mm[Hg] Paulo Singh MD Work Phone: [facility] 04-29-2023 09:17-0500 Heart rate 90 /min Paulo Singh MD Work Phone: [facility] 04-29-2023 09:17-0500 Respiratory rate 16 /min Paulo Singh MD Work Phone: [facility] 04-29-2023 09:17-0500 SaO2% (BldA) [Mass fraction] 98 % Paulo Singh MD Work Phone: [facility] 04-29-2023 09:17-0500 Systolic blood pressure 118 mm[Hg] Paulo Singh MD Work Phone: [facility] 04-22-2023 10:34-0500 Diastolic blood pressure 85 mm[Hg] Chair Senthil Work Phone: [facility] 04-22-2023 10:34-0500 Heart rate 100 /min Chair Williams Work Phone: [facility] 04-22-2023 10:34-0500 Respiratory rate 18 /min Chair Williams Work Phone: [facility] 04-22-2023 10:34-0500 SaO2% (BldA) [Mass fraction] 98 % Chair Williams Work Phone: [facility] 04-22-2023 10:34-0500 Systolic blood pressure 138 mm[Hg] Chair Senthil Work Phone: [facility] 04-08-2023 09:13-0500 Body height 166.2 cm Paulo Singh MD Work Phone: [facility] 04-08-2023 09:13-0500 Body temperature 97.7 [degF] Paulo Singh MD Work Phone: [facility] 04-08-2023 09:13-0500 Body weight 82.1 kg Paulo Singh MD Work Phone: [facility] 04-08-2023 09:13-0500 Diastolic blood pressure 82 mm[Hg] Paulo Singh MD Work Phone: [facility] 04-08-2023 09:13-0500 Heart rate 94 /min Paulo Singh MD Work Phone: [facility] 04-08-2023 09:13-0500 Respiratory rate 16 /min Paulo Singh MD Work Phone: [facility] 04-08-2023 09:13-0500 SaO2% (BldA) [Mass fraction] 97 % Paulo Singh MD Work Phone: [facility] 04-08-2023 09:13-0500 Systolic blood pressure 149 mm[Hg] Paulo Singh MD Work Phone: [facility] 03-25-2023 09:13-0400 Body height 166.2 cm Adair Elaine APRN.[employer] Work Phone: [facility] 03-25-2023 09:13-0400 Body temperature 97.5 [degF] Adair Elaine APRN.[employer] Work Phone: [facility] 03-25-2023 09:13-0400 Body weight 83.92 kg Adair Elaine APRN.[employer] Work Phone: [facility] 03-25-2023 09:13-0400 Diastolic blood pressure 77 mm[Hg] Adair Elaine APRN.[employer] Work Phone: [facility] 03-25-2023 09:13-0400 Heart rate 100 /min Adair Elaine APRN.[employer] Work Phone: [facility] 03-25-2023 09:13-0400 Respiratory rate 16 /min Adair Elaine APRN.[employer] Work Phone: [facility] 03-25-2023 09:13-0400 SaO2% (BldA) [Mass fraction] 97 % Adair Elaine APRN.[employer] Work Phone: [facility] 03-25-2023 09:13-0400 Systolic blood pressure 149 mm[Hg] Adair Elaine APRN.[employer] Work Phone: [facility] 03-10-2023 10:41-0400 Body temperature 97 [degF] Rosalba Reynoso MD Work Phone: [facility] 03-10-2023 10:41-0400 Body weight 85.28 kg Rosalba Reynoso MD Work Phone: [facility] 03-10-2023 10:41-0400 Diastolic blood pressure 63 mm[Hg] Rosalba Reynoso MD Work Phone: [facility] 03-10-2023 10:41-0400 Heart rate 86 /min Rosalba Reynoso MD Work Phone: [facility] 03-10-2023 10:41-0400 SaO2% (BldA) [Mass fraction] 98 % Rosalba Reynoso MD Work Phone: [facility] [facility] 03-10-2023 10:41-0400 Systolic blood pressure 134 mm[Hg] Rosalba Reynoso MD Work Phone: [facility] 03-03-2023 13:04-0400 Diastolic blood pressure 85 mm[Hg] MD Pankaj Osei Work Phone: [facility] 03-03-2023 13:04-0400 Heart rate 97 /min MD Pankaj Osei Work Phone: [facility] 03-03-2023 13:04-0400 Respiratory rate 16 /min MD Pankaj Osei Work Phone: [facility] 03-03-2023 13:04-0400 SaO2% (BldA) [Mass fraction] 95 % MD Pankaj Osei Work Phone: [facility] 03-03-2023 13:04-0400 Systolic blood pressure 123 mm[Hg] MD Pankaj Osei Work Phone: [facility] 03-03-2023 08:53-0400 Body height 167.64 cm MD Pankaj Osei Work Phone: [facility] 03-03-2023 08:53-0400 Body temperature 98.3 [degF] MD Pankaj Osei Work Phone: [facility] 03-03-2023 08:53-0400 Body weight 83.91 kg MD Pankaj Osei Work Phone: [facility] 02-16-2022 11:30-0400 Heart rate 80 /min Brent Calvillo MD Work Phone: [facility] 02-16-2022 11:30-0400 SaO2% (BldA) [Mass fraction] 95 % Brent Calvillo MD Work Phone: [facility] 02-16-2022 11:25-0400 Diastolic blood pressure 66 mm[Hg] Brent Calvillo MD Work Phone: [facility] 02-16-2022 11:25-0400 Respiratory rate 16 /min Brent Calvillo MD Work Phone: [facility] 02-16-2022 11:25-0400 Systolic blood pressure 137 mm[Hg] Brent Calvillo MD Work Phone: [facility] 02-16-2022 10:52-0400 Body temperature 96.8 [degF] Brent Calvillo MD Work Phone: [facility] 02-16-2022 09:17-0400 Body height 167.6 cm Brent Calvillo MD Work Phone: [facility] 02-16-2022 09:17-0400 Body weight 81.65 kg Brent Calvillo MD Work Phone: [facility] 01-21-2022 15:33-0400 Body height 167.6 cm Bobby Garrett MD Work Phone: [facility] 01-21-2022 15:33-0400 Body temperature 99 [degF] Bobby Garrett MD Work Phone: [facility] 01-21-2022 15:33-0400 Body weight 81.65 kg Bobby Garrett MD Work Phone: [facility] 01-21-2022 15:33-0400 Diastolic blood pressure 72 mm[Hg] Bobby Garrett MD Work Phone: [facility] 01-21-2022 15:33-0400 Heart rate 109 /min Bobby Garrett MD Work Phone: [facility] 01-21-2022 15:33-0400 Systolic blood pressure 136 mm[Hg] Bobby Garrett MD Work Phone: [facility] 09-25-2021 12:59-0400 Body weight 87.09 kg Abiel Muhammad PA-C Work Phone: [facility] 09-25-2021 12:59-0400 Diastolic blood pressure 58 mm[Hg] Abiel Jb PA-C Work Phone: [facility] 09-25-2021 12:59-0400 Heart rate 89 /min Abiel Muhammad PA-C Work Phone: [facility] 09-25-2021 12:59-0400 Systolic blood pressure 137 mm[Hg] Abiel Jb PA-C Work Phone: [facility] Encounters Encounter Date Encounter Type Care Provider Facility Start: 05-06-2023 End: 05-09-2023 ambulatory PAULO SINGH Facility:[facility] Start: 05-06-2023 End: 05-06-2023 ambulatory Chair 9 Senthil Work Phone: Hematology/Oncology Comment on above: Malignant neoplasm o f upper-outer quadrant of right breast in female, estrogen receptor positive (HCC) (HCC) (Primary Dx) Start: 05-03-2023 End: 05-03-2023 ambulatory PANKAJ OSEI Facility:[facility] Start: 05-03-2023 End: 05-03-2023 ambulatory Chair 21 Senthil Work Phone: Hematology/Oncology Comment on above: Malignant neoplasm o f upper-outer quadrant of right breast in female, estrogen receptor positive (HCC) (Primary Dx) Start: 04-29-2023 End: 04-29-2023 ambulatory [facility] Senthil Work Phone: Hematology/Oncology Comment on above: Malignant neoplasm o f upper-outer quadrant of right breast in female, 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, estrogen receptor positive (HCC) (Primary Dx) Start: 04-29-2023 End: 04-29-2023 Office outpatient visit 40 minutes Paulo Singh MD Work Phone: Hematology/Oncology Comment on above: Malignant neoplasm o f central portion of right breast in female, estrogen receptor negative (HCC) (Primary Dx); Immunotherapy; Thyroiditis; Blood glucose elevated Start: 04-22-2023 Telephone encounter Tessy VU H ematology/Oncology Start: 04-22-2023 End: 04-22-2023 ambulatory PAULO SINGH Facility:[facility] Start: 04-22-2023 End: 04-22-2023 ambulatory Chair Jazmin Ndiaye Work Phone: Hematology/Oncology Comment on above: Malignant neoplasm o f upper-outer quadrant of right breast in female, estrogen receptor positive (HCC) (Primary Dx) Start: 04-19-2023 End: 04-19-2023 ambulatory CHARISSA RAI Not Available Start: 04-15-2023 End: 04-18-2023 ambulatory PANKAJ Didi FARNAZ Facility:[facility] Start: 04-12-2023 End: 04-12-2023 ambulatory Reji Mela STATON Work Phone: [facility] Comment on above: Malignant neoplasm o f breast in female, estrogen receptor negative, unspecified laterality, unspecified site of breast (HCC) (Primary Dx); Malignant neoplasm of upper-outer quadrant of right breast in female, estrogen receptor positive (HCC) Start: 04-12-2023 End: 04-12-2023 Telemedicine consultation with patient Reji STATON Work Phone: [facility] Start: 04-08-2023 End: 04-08-2023 ambulatory PANKAJ OSEI Facility:[facility] Start: 04-08-2023 End: 04-08-2023 Office outpatient visit 25 minutes Paulo Singh MD Work Phone: Hematology/Oncology Comment on above: Malignant neoplasm o f upper-outer quadrant of right breast in female, estrogen receptor negative (HCC) (Primary Dx); Immunotherapy; Abnormal blood chemistry; Thyroiditis; Blood glucose elevated Start: 04-08-2023 End: 04-08-2023 ambulatory [facility] S[facility] Work Phone: Hematology/Oncology Comment on above: Malignant neoplasm o f upper-outer quadrant of right breast in female, estrogen receptor positive (HCC) ; Immunotherapy; Abnormal blood chemistry; Thyroiditis Malignant neoplasm o f upper-outer quadrant of right breast in female, estrogen receptor positive (HCC) (Primary Dx) Start: 04-01-2023 End: 04-01-2023 ambulatory PANKAJ M TYLORStormy Facility:[facility] Start: 03-25-2023 End: 03-25-2023 ambulatory [facility] Work Phone: Hematology/Oncology Comment on above: Malignant neoplasm o f upper-outer quadrant of right breast in female, 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, estrogen receptor positive (HCC) (Primary Dx); Blood glucose elevated Malignant neoplasm o f upper-outer quadrant of right breast in female, estrogen receptor positive (HCC) (Primary Dx) [facility] Start: 03-25-2023 End: 03-25-2023 Patient encounter procedure Adair Elaine APRN.CNP Work Phone: [facility] Start: 03-24-2023 End: 03-24-2023 ambulatory YECENIA TORRES Facility:[facility] Start: 03-22-2023 Telephone encounter Asia rendon RN Work Phone: Hematology/Oncology Comment on above: 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) Benefits Investigati on Start: 03-17-2023 End: 03-17-2023 ambulatory PAULO ABHYANKAR Facility:[facility] Start: 03-17-2023 End: 03-17-2023 ambulatory [facility] Work Phone: Hematology/Oncology Comment on above: Malignant neoplasm o f upper-outer quadrant of right breast in female, 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, estrogen receptor positive (HCC) (Primary Dx); Immunotherapy; Abnormal blood chemistry; Thyroiditis Start: 03-16-2023 Telephone encounter Paulo blakely MD Work Phone: Hematology/Oncology Comment on above: Lab Orders Start: 03-15-2023 Telephone encounter Jessica carmichael RN Mammography Comment on above: Results Start: 03-15-2023 ambulatory PAULO SAMANTHA [facility] Start: 03-15-2023 End: 03-15-2023 Subsequent hospital visit by physician [facility] (I-Stat/1.5t) Radiology Comment on above: Malignant neoplasm o f upper-outer quadrant of right breast in female, estrogen receptor positive (HCC) [C50.411, Z17.0] Start: 03-11-2023 Telephone encounter Asia rendon RN Work Phone: Hematology/Oncology Comment on above: 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 (Results) Start: 03-10-2023 End: 03-10-2023 ambulatory [facility] Facility:[facility] Start: 03-10-2023 End: 03-10-2023 Patient encounter procedure Rosalba Reynoso MD Work Phone: [facility] Comment on above: Triple negative [place] cancer (HCC) (Primary Dx) Start: 03-10-2023 End: 03-10-2023 Subsequent hospital visit by physician Screen/Diag Mammo [facility] Work Phone: [facility] Radiology Mammography Comment on above: Malignant neoplasm o f upper-outer quadrant of right breast in female, estrogen receptor positive (HCC) [C50.411, Z17.0] Breast disorder [N64 .9] Start: 03-09-2023 End: 03-09-2023 ambulatory PAULO SAMANTHA Facility:[facility] Start: 03-09-2023 Chart abstracting Sugar gusman RN Work Phone: Hematology/Oncology Comment on above: Research (IRB [id number] Case [id number] Presentation-Declined) Start: 03-03-2023 Telephone encounter Elva Patel Hematology/Oncology Comment on above: Patient Update Care Coordination (A ntiemetics) Start: 03-03-2023 End: 03-03-2023 ambulatory Pankaj Osei Facility:[facility] Start: 03-03-2023 End: 03-03-2023 Admission to same day surgery center MD Pankaj Osei Work Phone: [facility] [place] Start: 03-03-2023 End: 03-03-2023 ambulatory MD Pankaj Osei Work Phone: [facility] Work Phone: Start: 02-28-2023 Telephone encounter Rosalba mahmood MD Work Phone: [facility] Comment on above: Imaging Appt Orders Start: 02-25-2023 Telephone encounter Jennifer robertson RN Work Phone: [facility] Comment on above: 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 Start: 02-24-2023 End: 02-24-2023 ambulatory YECENIA TORRES Facility:[facility] Start: 02-23-2023 Telephone encounter Paulo blakely MD Work Phone: [facility] Comment on above: Future Appointment Start: 02-22-2023 Telephone encounter Paulo blakely MD Work Phone: [facility] Comment on above: Future Appointment Start: 02-21-2023 End: 02-22-2023 ambulatory CECELIA MALHOTRA Facility:[facility] Start: 02-18-2023 Chart abstracting Paulo donald MD Work Phone: Hematology/Oncology Start: 10-15-2022 End: 10-15-2022 ambulatory CHARO NAPIER Facility:[facility] Start: 09-13-2022 ambulatory Brent Calvillo MD Work Phone: Gastroenterology Comment on above: Upper GI Start: 09-07-2022 End: 09-08-2022 ambulatory Jt BRASWELL Facility:[facility] Start: 08-26-2022 ambulatory tJ BRASWELL [facility] Start: 08-19-2022 ambulatory Brent Calvillo MD Work Phone: Gastroenterology Comment on above: Endoscopy Start: 08-17-2022 ambulatory Brent Calvillo MD Work Phone: Gastroenterology Comment on above: Endoscopy Start: 08-02-2022 End: 08-03-2022 ambulatory SOFIA JOHNS Facility:[facility] Start: 04-20-2022 Telephone encounter Abiel fabian PA-C Work Phone: Neurology Comment on above: Medication Question (Specialty Botox) Start: 04-12-2022 Encounter for genera l adult medical examination without abnormal findings DR PANKAJ OSEI . [facility] Start: 04-08-2022 End: 04-09-[address] PANKAJ OSEI . Facility:[facility] Start: 04-08-2022 End: 04-09-2022 Encounter for general adult medical examination without abnormal findings DR PANKAJ OSEI . 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] Start: 02-08-2022 Telephone encounter Lili Haley RN G astroenterology Comment on above: Appointment Confirma tion Start: 01-23-2022 Refill Charo mohamud PA-C Work Phone: Neurology Comment on above: Refill Request Start: 01-21-2022 End: 01-21-2022 Patient encounter procedure Bobby Garrett MD Work Phone: General Surgery Comment on above: Paraesophageal herni a (Primary Dx) Start: 01-20-2022 End: 01-21-[address] DOCTOR ANGULO Facility:[facility] Start: 01-13-2022 Telephone encounter Abiel QUIROZC Work Phone: Neurology Comment on above: Insurance Authorizat ion (AJOVY) Start: 01-11-2022 Orders Only Bobby Garrett MD Work Phone: General Surgery Comment on above: Hiatal hernia with g astroesophageal reflux (Primary Dx) Start: 01-08-2022 Telephone encounter Elsa Patel General Surgery Comment on above: Research F/U Start: 01-07-2022 Telephone encounter Brent wallace MD Work Phone: Gastroenterology Comment on above: Patient Question Start: 01-04-2022 End: 01-04-2022 Patient encounter procedure Brent Calvillo MD Work Phone: Gastroenterology Comment on above: Day's esophagus with low grade dysplasia (Primary Dx) Start: 01-01-2022 Orders Only Nannette Duarte MD Work Phone: General Surgery Comment on above: History of hiatal he rnia (Primary Dx) Start: 12-28-2021 ambulatory Abiel Muhammad PA-C Work Phone: Neurology Comment on above: Botox injections for January 08 Start: 09-25-2021 ambulatory Abiel Muhammad PA-C Work Phone: Neurology Comment on above: Eletriptan 40 mg. Start: 09-25-2021 End: 09-25-2021 Patient encounter procedure Abiel Muhammad PA-C Work Phone: Neurology Comment on above: Chronic migraine wit hout aura, intractable, without status migrainosus (Primary Dx) Start: 09-02-2021 Telephone encounter Abiel fabian PA-C Work Phone: Neurology Comment on above: Medication Request ( Specialty Botox) Start: 04-18-2018 End: 04-18-2018 Patient encounter procedure [facility] Start: 04-17-2018 End: 04-22-2018 Patient encounter procedure [facility] Start: 12-13-2016 End: 12-14-2016 Ambulatory NILAY ARCHER Facility:[facility] Procedures Date Procedure Procedure Detail Performing Clinician Start: 05-06-2023 End: 05-06-2023 Blood count complete auto&auto difrntl wbc Paulo Singh MD Work Phone: Start: 04-29-2023 CBC + DIFF Paulo Singh MD Work Phone: Start: 04-29-2023 Comprehensive metabolic panel Paulo blakely MD Work Phone: Start: 04-22-2023 Blood count complete auto&auto difrntl wbc Paulo Singh MD Work Phone: Start: 04-08-2023 Blood count complete auto&auto difrntl wbc Paulo Singh MD Work Phone: Start: 03-25-2023 Blood count complete auto&auto difrntl wbc Paulo Singh MD Work Phone: Start: 03-17-2023 End: 03-17-2023 Cortisol total Paulo Singh MD Work Phone: Start: 03-17-2023 Blood count complete auto&auto difrntl wbc Paulo Singh MD Work Phone: Start: 03-10-2023 Bx breast w/device 1st lesion ultrasound guid Anya Alcaraz MD Work Phone: Start: 03-10-2023 Digital breast tomosynthesis unilateral Anya Alcaraz MD Work Phone: Start: 03-10-2023 Level iv surg pathology gross&microscopic exam Anya Alcaraz MD Work Phone: Start: 03-10-2023 Us breast uni real time with image limited Rosalba Reynoso MD Work Phone: Start: 03-10-2023 Digital breast tomosynthesis bilateral Rosalba Reynoso MD Work Phone: Start: 03-03-2023 OR Infusaport Insertion/Removal (Not Applicable) MD Pankaj Osei Work Phone: Start: 03-03-2023 Plain chest X-ray MD Pankaj sOei Work Phone: Start: 02-16-2022 Gluc bld gluc mntr dev cleared fda spec home use Malinda Hall RESIDENTIAL SOLAR CONSULTANT.REPLACER Work Phone: Start: 02-16-2022 Esophagogastroduodenoscopy transoral diagnostic Brent Calvillo MD Work Phone: Start: 02-16-2022 Gluc bld gluc mntr dev cleared fda spec home use Malinda Hall RESIDENTIAL SOLAR CONSULTANT.REPLACER Work Phone: Start: 01-01-2022 Adult depression screening assessment Abiel Muhammad PA-C Work Phone: Start: 08-28-2021 Adult depression screening assessment Abiel Muhammad PA-C Work Phone: Start: 04-18-2018 INCENTIVE SPIROMETRY RT VILMA DENI Start: 04-18-2018 INCENTIVE SPIROMETRY RT VILMA DENI Start: 04-18-2018 SURGICAL PATHOLOGY VILMA DENI Start: 04-18-2018 INCENTIVE SPIROMETRY RT VILMA DENI Start: 04-18-2018 DISCHARGE PATIENT VILMA DENI Start: 04-18-2018 POCT GLUCOSE VILMA DENI Start: 04-18-2018 FLUORO FOR SURGICAL PROCEDURES VILMA DENI Start: 04-18-2018 INCENTIVE SPIROMETRY RT VILMA DENI Start: 04-18-2018 INITIATE OXYGEN THERAPY PROTOCOL VILMA DENI Start: 04-18-2018 SURGICAL PATHOLOGY VILMA DENI Start: 04-18-2018 Continuous pulse oximetry VILMA DENI Start: 04-18-2018 ENCOURAGE DEEP BREATHING AND COUGHING VILMA DENI Start: 04-18-2018 INCENTIVE SPIROMETRY RT VILMA DENI Start: 04-18-2018 NURSING COMMUNICATION VILMA DENI Start: 04-18-2018 ASSESS VILMA DENI Start: 04-18-2018 BEDREST VILMA DENI Start: 04-18-2018 NEURO/VASCULAR CHECKS VILMA DENI Start: 04-18-2018 DIET NPO, AFTER MIDNIGHT VILMA DENI Start: 04-18-2018 GRADUAL COMPRESSION STOCKINGS (HOLLEY) VILMA Y OO Start: 04-18-2018 NOTIFY PHYSICIAN (SPECIFY) VILMA DENI Start: 04-18-2018 PLACE INTERMITTENT PNEUMATIC COMPRESSION DEVICE VILMA DENI Start: 04-18-2018 POCT GLUCOSE VILMA DENI Start: 04-18-2018 PULSE OXIMETRY SPOT CHECK VILMA DENI Start: 04-18-2018 VITAL SIGNS VILMA DENI Start: 04-18-2018 INITIATE OXYGEN THERAPY PROTOCOL VILMA DENI Start: 04-17-2018 EKG 12-LEAD VILMA DENI Start: 04-17-2018 Blood count complete automated VILMA DENI Start: 04-17-2018 Basic metabolic panel calcium total VILMA Y OO Start: 04-17-2018 Prothrombin time VILMA DENI Start: 04-17-2018 Thromboplastin time partial plasma/whole blood VILMA DENI Start: 04-17-2018 URINE RT REFLEX TO CULTURE VILMA DENI Start: 04-17-2018 TYPE AND SCREEN VILMA DENI Start: 04-17-2018 Cul prsmptv pthgnc organism scrn w/[place] estimj VILMA DENI Plan of Treatment Date Care Activity Detail Author Start: 07-05-2029 Urine microalbumin profile DTaP,Tdap,Td Vaccine (2 - Td or Tdap) [facility] Start: 04-29-2024 BP Controlled (<130/80) BP Controlled (<130/80) [facility] Start: 03-10-2024 Mammography Mammogram Screening [facility] Start: 03-10-2024 Screening for malignant neoplasm of breast Mammogram Screening [facility] Start: 02-17-2024 Pneumococcal Vaccine: 65+ (3 - PPSV23 or PCV20) Pneumococcal Vaccine: 65+ (3 - PPSV23 or PCV20) [facility] Start: 02-17-2024 Pneumococcal Vaccine: 65+ (4 - PPSV23 or PCV20) Pneumococcal Vaccine: 65+ (4 - PPSV23 or PCV20) [facility] Start: 02-17-2024 Pneumococcal Vaccine: 65+ (4 of 4 - PPSV23 or PCV20) Pneumococcal Vaccine: 65+ (4 of 4 - PPSV23 or PCV20) [facility] Start: 02-17-2024 PNEUMOCOCCAL: 65+ (3 - PPSV23 if available, else PCV20) PNEUMOCOCCAL: 65+ (3 - PPSV23 if available, else PCV20) [facility] Start: 02-17-2024 PNEUMOCOCCAL: 65+ (3 - PPSV23 or PCV20) PNEUMOCOCCAL: 65+ (3 - PPSV23 or PCV20) [facility] Start: 08-03-2023 Mammography Mammogram Screening [facility] Start: 07-09-2023 Hemoglobin A1c measurement HbA1C [facility] Start: 07-09-2023 Hemoglobin A1c/Hemoglobin.total in Blood HbA1C [facility] Start: 06-17-2023 Hemoglobin A1c/Hemoglobin.total in Blood HbA1C [facility] Start: 04-12-2023 End: 07-12-2023 MISC SEND OUT TST 1 [facility] Work Phone: Comment on above: Expected: 04/12/2023 , Expires: 07/12/2023 Start: 03-17-2023 End: 06-16-2023 Cancer Ag 15-3 [Units/volume] in Serum or Plasma [facility] Work Phone: Comment on above: Expected: 03/17/2023 (Approximate), Expires: 06/16/2023 Start: 03-17-2023 End: 06-16-2023 Cancer Ag 27-29 [Units/volume] in Serum or Plasma [facility] Work Phone: Comment on above: Expected: 03/17/2023 (Approximate), Expires: 06/16/2023 Start: 03-17-2023 End: 06-16-2023 CBC W Auto Differential panel - Blood CBC + DIFF Lab Routine Malignant neoplasm of upper-outer quadrant of right breast in female, estrogen receptor positive (HCC) Expected: 03/17/2023 (Approximate), Expires: 06/16/2023 [facility] Work Phone: Comment on above: Expected: 03/17/2023 (Approximate), Expires: 06/16/2023 Start: 03-17-2023 End: 06-16-2023 Comprehensive metabolic 2000 panel - Serum or Plasma COMP METABOLIC PANEL Lab Routine Malignant neoplasm of upper-outer quadrant of right breast in female, estrogen receptor positive (HCC) Expected: 03/17/2023 (Approximate), Expires: 06/16/2023 [facility] Work Phone: Comment on above: Expected: 03/17/2023 (Approximate), Expires: 06/16/2023 Start: 03-03-2023 End: 03-03-2023 [facility] Start: 01-21-2023 Covid-19 Vaccine () Covid-19 Vaccine () [facility] Start: 01-21-2023 [facility] Start: 01-08-2023 BP CONTROLLED (<130/80) BP CON TROLLED (<130/80) [facility] Start: 01-01-2023 Adult depression screening assessment DEPRESSION SCREENING [facility] Start: 08-28-2022 Adult depression screening assessment DEPRESSION SCREENING [facility] Start: 05-23-2022 ADVANCE DIRECTIVE DISCUSSION ADVANCE DIRECTIVE DISCUSSION [facility] Start: 05-23-2022 DEPRESSION ASSESSMENT DEPRESSION ASS ESSMENT [facility] Start: 01-21-2022 Influenza vaccination INFLUENZA (#1) [facility] Start: 01-04-2022 End: 03-06-2022 Comprehensive metabolic 2000 panel - Serum or Plasma [facility] Work Phone: Comment on above: Expected: 01/04/2022 , Expires: 03/06/2022 Start: 2021 ADVANCE DIRECTIVE DISCUSSION ADVANCE DIRECTIVE DISCUSSION [facility] Start: 2021 BONE DENSITY BONE DENSITY [facility] Start: 2021 Bone Density Screening Bone Density Screening [facility] Start: 2021 Screening for osteoporosis Bone Density Screening [facility] Start: 05-23-2021 DEPRESSION ASSESSMENT DEPRESSION ASS ESSMENT [facility] Start: 05-04-2021 COVID-19 VACCINE (2 - Booster for Leanne series) COVID-19 VACCINE (2 - Booster for Leanne series) [facility] Start: 04-06-2021 Covid-19 Vaccine (2 - Leanne risk series) Covid-19 Vaccine (2 - Leanne risk series) [facility] Start: 2016 HEPATITIS B (1 of 3 - Risk 3-dose series) HEPATITIS B (1 of 3 - Risk 3-dose series) [facility] Start: 2016 Hepatitis B Vaccine (1 of 3 - Risk 3-dose series) Hepatitis B Vaccine (1 of 3 - Risk 3-dose series) [facility] Start: 2016 RSV Vaccine (1 - 1-d ose 60+ series) RSV Vaccine (1 - 1-dose 60+ series) [facility] Start: 2006 SHINGRIX VACCINE (1 of 2) SHINGRIX VACCINE (1 of 2) [facility] Start: 2001 COLOGUARD (FIT-DNA) COLOGUARD (FIT-D NA) [facility] Start: 2001 Colonoscopy COLONOSCOPY [facility] Start: 2001 COLORECTAL CANCER SCREENING COLORECTAL CANCER SCREENING [facility] Start: [address] COLONOGRAPHY [facility] Start: 2001 FECAL OCCULT BLOOD FECAL OCCULT BLOO D [facility] Start: 2001 Screening for malign ant neoplasm of colon [facility] Start: 2001 SIGMOIDOSCOPY SIGMOIDOSCOPY [facility] Start: 1996 Mammography [facility] Start: 1986 HPV TESTING HPV TESTING [facility] Start: 1977 PAP TESTING PAP TESTING [facility] Start: 12-23-1975 HEPATITIS B (1 of 3 - Risk 3-dose series) HEPATITIS B (1 of 3 - Risk 3-dose series) [facility] Start: 12-23-1975 Urine microalbumin profile [facility] Start: 1974 ANNUAL PCP TEAM CONFERENCE RESERVATIONIST KENNY DISEASE VISIT ANNUAL PCP TEAM CHRONIC DISEASE VISIT [facility] Start: 1974 BP CONTROLLED (<130/80) BP CONTROLLE D (<130/80) [facility] Start: 1974 Hepatitis B surface antibody level LDL CHOLESTEROL [facility] Start: 1974 HEPATITIS C SCREENING HEPATITIS C [facility] Start: 1974 Hepatitis C screening Hepatitis C [facility] Start: 1974 HIV SCREENING HIV SCREENING [facility] Start: 1966 3 comp foot exam completed DIABETIC FOOT EXAM [facility] [facility]: [facility] Diabetic foot examination Diabetic Foot Exam [facility] Start: 1966 Glaucoma screening Dilated Retinal E xam [facility] Start: 1966 Hepatitis B screening URINE AL BUMIN:CREATININE RATIO [facility] Start: 1966 Hepatitis C antibody , confirmatory test DILATED RETINAL EXAM [facility] Start: 1961 Hemoglobin A1c/Hemoglobin.total in Blood HBA1C [facility] Start: 1957 HEPATITIS A (1 of 2 - Risk 2-dose series) HEPATITIS A (1 of 2 - Risk 2-dose series) [facility] CBC W Auto Different ial panel - Blood CBC + DIFF Lab Routine Malignant neoplasm of upper-outer quadrant of right breast in female, estrogen receptor positive (HCC) 04/29/2023 9:29 AM EST [facility] Work Phone: Cortisol [Mass/volum e] in Serum or Plasma CORTISOL BLD Lab Routine Malignant neoplasm of upper-outer quadrant of right breast in female, estrogen receptor positive (HCC) Immunotherapy Abnormal blood chemistry 04/08/2023 9:30 AM EST [facility] Work Phone: End: 02-10-2023 Ct abdomen & pelvis w/o contrast material CT ABD/PEL WO IVCON Radiology Routine Hiatal hernia with gastroesophageal reflux 1 Occurrences starting 01/11/2022 until 02/10/2023 [facility] Work Phone: Comment on above: 1 Occurrences starti ng 01/11/2022 until 02/10/2023 End: 01-04-2023 EGD DIAGNOSTIC EGD DIAGNOSTIC Endoscopy Routine Day's esophagus with low grade dysplasia 1 Occurrences starting 01/04/2022 until 01/04/2023 [facility] Work Phone: Comment on above: 1 Occurrences starti ng 01/04/2022 until 01/04/2023 End: 08-24-2023 EGD DIAGNOSTIC EGD DIAGNOSTIC Endoscopy Routine Day's esophagus without dysplasia Generalized abdominal pain 1 Occurrences starting 08/23/2022 until 08/24/2023 [facility] Work Phone: Comment on above: 1 Occurrences starti ng 08/23/2022 until 08/24/2023 Hemoglobin A1c in Blood HGB A1C Lab Routine Malignant neoplasm of upper-outer quadrant of right breast in female, estrogen receptor positive (HCC) Immunotherapy Abnormal blood chemistry 04/08/2023 9:30 AM EST [facility] Work Phone: MRI BREAST WO/W IVCO N BILATERAL MRI BREAST WO/W IVCON BILATERAL Radiology Routine Malignant neoplasm of upper-outer quadrant of right breast in female, estrogen receptor positive (HCC) 03/15/2023 9:48 AM EDT [facility] Work Phone: Patient Education [place] [place] ([place] ) [facility] Work Phone: SURGICAL PATHOLOGY [facility] Work Phone: Comment on above: Release Upon Orderin g for 1 Occurrences starting 02/16/2022, 1 completed Thyrotropin [Units/v olume] in Serum or Plasma TSH BLD Lab Routine Malignant neoplasm of upper-outer quadrant of right breast in female, estrogen receptor positive (HCC) Thyroiditis 04/08/2023 9:30 AM EST [facility] Work Phone: End: 01-31-2023 XR UPPER GI SINGLE CONTRAST XR UPPER GI SINGLE CONTRAST Radiology Routine History of hiatal hernia 1 Occurrences starting 01/01/2022 until 01/31/2023 [facility] Work Phone: Comment on above: 1 Occurrences starti ng 01/01/2022 until 01/31/2023 [facility] Immunizations Immunization Date Immunization Notes Care Provider [facility] 03-18-2022 influenza (aIIV4) vaccine, age 65+ yr, quadrivalent, PF (FLUAD QUAD) Paulo Singh MD Work Phone: [facility] 03-18-2022 influenza virus vacc ine, unspecified formulation Paulo Singh MD Work Phone: [facility] 04-01-2021 Influenza, injectabl e, Madin Fatoumata Canine Kidney, preservative free, quadrivalent Abiel Muhammad PA-C Work Phone: [facility] 04-23-2020 influenza, injectabl e, quadrivalent, contains preservative Paulo Singh MD Work Phone: [facility] 03-29-2020 influenza, injectabl e, quadrivalent, preservative free Paulo Singh MD Work Phone: [facility] 01-16-2020 zoster vaccine recombinant Paulo Singh MD Work Phone: [facility] 10-11-2019 zoster vaccine recombinant Paulo Singh MD Work Phone: [facility] 07-05-2019 tetanus toxoid, redu elmer diphtheria toxoid, and acellular pertussis vaccine, adsorbed Paulo Singh MD Work Phone: [facility] 03-15-2019 influenza nasal, unspecified formulation Paulo Singh MD Work Phone: [facility] 02-28-2019 influenza, injectabl e, quadrivalent, contains preservative Paulo Singh MD Work Phone: [facility] 02-16-2019 pneumococcal polysaccharide vaccine, 23 valent Abiel Muhammad PA-C Work Phone: [facility] 03-16-2017 influenza, injectabl e, quadrivalent, contains preservative Paulo Singh MD Work Phone: [facility] 03-16-2017 zoster vaccine, live Paulo cota MD Work Phone: [facility] 03-23-2016 influenza nasal, unspecified formulation Paulo Singh MD Work Phone: [facility] 02-20-2014 influenza nasal, unspecified formulation Paulo Singh MD Work Phone: [facility] 06-01-2013 pneumococcal polysaccharide vaccine, 23 valent Abiel Muhammad PA-C Work Phone: [facility] 02-20-2013 pneumococcal conjuga te vaccine, 13 valent Abiel Muhammad PA-C Work Phone: [facility] 10-21-1960 poliovirus vaccine, unspecified formulation Paulo Singh MD Work Phone: [facility] Payers Date Payer Category Payer Self-pay [id number] 2021 Medicare MEDICARE MEDICAR E A [id number] 2021-Present [phone] [address] [place] [address] Medicare [id number] 2021 Medicare [id number] 2020 Private Health Insurance [facility] [employer] GENERIC [id number] 2020-Present [phone] [address] [address] [place] [address] PPO [id number] 2020 Private Health Insurance [id number] 2017 Unknown 1959 Unknown [id number] 1959 Unknown [id number] 1956 Unknown [id number] 1956 Unknown [id number] [id number] 1956 Unknown [id number] 1956 Unknown [id number] 1956 Unknown [id number] 1956 Unknown [id number] [id number] 1956 Unknown [id number] [id number] 1956 Unknown [id number] Unknown [id number] Social History Date Type Detail Facility Start: 03-20-2020 End: 02-18-2023 Tobacco smoking status NHIS Ex-smoker [facility] Start: 03-20-2020 End: 02-18-2023 Tobacco use and exposure Smokeless tobacco non-user [facility] Start: 06-17-2021 End: 01-21-2022 Alcohol intake Current drinker of alcohol (finding) [facility] Start: 03-20-2020 History SDOH Alcohol Frequency 1 [facility] Start: 04-27-2021 History SDOH Alcohol Comment rarely [facility] Start: 04-27-2021 End: 01-08-2022 Tobacco Comment quit smoking in 2014 [facility] Start: 1955 Sex Assigned At Female [facility] Start: 09-15-2021 End: 02-16-2022 Exposure to SARS-CoV-2 (event) Not sure [facility] History of tobacco use Current smoker [facility] History of tobacco use Passive smoker [facility] Start: 02-18-2023 End: 03-17-2023 Alcohol intake Ex-drinker (finding) [facility] Start: 03-20-2020 End: 02-21-2023 History of Social function [facility] Start: 03-20-2020 End: 02-21-2023 Alcohol Use Disorder Identification Test - Consumption [AUDIT-C] [facility] How often to you hav e a drink containing alcohol? Never [facility] Average Number of Drinks Not on file [facility] Start: 02-13-2020 Gender identity Identifies as female gender (finding) [facility] Start: 02-13-2020 Sexual orientation Heterosexual (clif andersen) [facility] Medical Equipment Procedure Code Equipment Code Equipment Original Text Equi pment Identifier Dates OneTouch Verio test strips Comment on above: OneTouch Verio test strips Power Port-03/03/2023 [id number] [address] art: 03-03-2023 Comment on above: Description: Power P ort placed at [facility] Heparin Flush Clip-03/10/2023 [id number] Start: 1 Comment on above: Description: Heart c lip Goals Date Patient Goal Desired Activity /State Clinical Notes 09-03-2021 to 04-29-2023 Tessy Guerrero LSW - 04/29/2023 1:29 PM ESTPatient InstructionsAbPaulo mckeon MD - 04/29/2023 9:30 AM ESTTelephone Encounter - Tessy Guerrero LSW - 04/22/2023 2:54 PM ESTPatient Instructions Note Date & Type Note Facility 04-29-2023 Note [facility] 04-29-2023 History of Presen t illness Narrative SOCIAL WORK FOLLOW UP NOTE: [facility] Date of service:04/29/23 Jyoti Enriquez is being seen for a follow up social work visit. Today's visit includes: spouse and patient TOPICS ADDRESSED: community resources and wigs PLAN: Continue follow up as needed F/U APPOINTMENT: PRN Assigned SW listed in Care Team tab: Yes SW met with Patient and spouse in the infusion room. SW shared that the wig she desires is on back order. SW showed Patient pictures of a few wigs that [facility] has in stock. SW also showed Patient a comparable in stock. Patient was not interested in any of the above options. Patient will continue to wait for the back order wig to arrive. SW will remain available and will follow up as appropriate. MARK Ayers documented in this encounter [facility] 04-29-2023 Note [facility] 04-29-2023 Instructions Rena Gustafson - 04/29/2023 9:55 AM EST Hydration today, Tuesday (05/03), and Tuesday (05/06). Hold treatment for a week. Plan to resume next week on 05/06/2023 Follow up in 1 week to resume treatment, no clinician needed Labs weekly as ordered. RTC in 4 weeks for C4. documented in this encounter [facility] 04-29-2023 History of Presen t illness Narrative Images from the original note were not included. 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 Following additional imaging, including MRI breast bilateral, CT CAP, echocardiogram she will be ready for initiation of neoadjuvant chemotherapy with immunotherapy. Preceding this the patient desired to have an opinion with one of our [facility] breast surgeons and may need lymph node sampling prior to start of therapy. Given TNBCa stage IIA high risk disease, will proceed with neoadjuvant systemic therapy. Plan for treatment with Keynote 512 - MRI, 4 cycles keytruda Carboplatin + taxol - MRI - 4 cycles keytruda AC MRI then surgery. Blood sugar is improving on metformin. Her genetic testing was negative. (04/29) She is falling behind from nutrition diet and is experiencing adverse effects consistent with chemotherapy, we will take a break for 1 week. Appears to have good response with 2 cycles of therapy on examination of right breast. PLAN: Hydration today, Tuesday (05/03), and Tuesday (05/06). Hold treatment for a week. Plan to resume next week on 05/06/2023 Follow up in 1 week to resume treatment, no clinician needed Labs weekly as ordered. RTC in 4 weeks for C4. HPI: CASE HISTORY: Reverse Chronological Order 03/17/2023 - Started Carboplatin / Taxol / Keytruda 03/15/2023 - MRI Breast: 2.2 cm spiculated enhancing mass in the 12:00 anterior depth-middle depth right breast at site of biopsy-proven malignancy. 2. No other definite suspicious areas of enhancement in either breast. No lymphadenopathy. 03/10/2023 USG breast bx 2nd right breast lesion - negative for additional malignancy 03/09/2023 CT CAP: negative for metastatic disease. Hepatic steatosis. 01/20/2023 right breast mass biopsy invasive ductal carcinoma grade 3 ER 0, AR 0 HER2 1+ by IHC negative. 01/20/2023 postbiopsy diagnostic mammography metallic marker placed in targeted location within the upper outer quadrant right breast. 01/17/2023 diagnostic mammography right breast category 4 suspicious for malignancy. Ultrasound demonstrates bilobed hypoechoic mass with acoustic shadowing smaller component measuring 5.9 mm connected to a larger deeper 8.3 mm lesion with a connecting stalk measuring 2.3 mm. December 2022: Mid December felt a lump in her right breast July 2022 normal mammogram Updated Visit, April 29, 2023: Jyoti Hdz returns today with Chandler for follow up. She is having a difficult time lately. She reports that last week she felt she was getting a cold and has been super congested. She wasn't sleeping well due to postnasal drip and headaches from the congestion. She has also been experiencing a lot of restless leg syndrome and pain from her hair growing, which have also affected her sleep. She is having adverse effects from the metformin and gets severe cramping stomach pain any time she eats, and she therefore has not been eating much. She does not feel nauseous, just a clenching pain. She is not feeling hungry until she has not eaten for many hours. Endorses drinking a lot of fluids. Has seen the pipe organ mechanic. Even though she does not necessarily feel nauseous, her stomach pain may be a different manifestation of nausea, so she should consider taking her antiemetic anyway when she needs to eat. She is also having bowel troubles with using the bathroom, she is having frequent diarrhea. Tried Imodium but this made her very constipated for several days and she would rather experience the softer stools. She has lost some weight. She is getting weaker and her stamina is decreased, notes she is more SOB and is having difficulty walking up stairs. She is also not driving anymore due to this. Reports her genetic assessment was negative. Her BGS are improved, but this is in the context of her adverse eating regimen right now. Due to her wide array of adverse symptoms, we should hold treatment for a week. Updated Visit, April 08, 2023: Jyoti Hdz returns today for follow up accompanied by her Chandler. She has lost the rest of her hair. She has been started on Zyprexa for nausea. She has concerns over taking all three of her new meds at the same time because she seems to have side effects to anything she takes. Reports most anything she eats is digested quickly and she is having diarrhea frequently, he has started wearing adult diapers. Has not taken Senna for her constipation for the last 3 days. Her blood glucose has been improving after being started on metformin, but is having problems still with it spiking any time she has carbs. Dr. Osei has recommended starting something else if they continue to stay elevated. Today her urine this morning was darker, thinks she is drinking enough water. Also has had blood in her mucus the last few times she has blow her nose. Having eczema spots. Otherwise, she is feeling good overall. After last treatment she had weakness and muscle pain all over. We reviewed her labs, she is not anemic and her platelets are great. She is willing to have her CMP done on Tuesday. We reassured her that her diet is directionally correct, encouraged her to stop her Senna. Reassured her that I see early response already. Updated Visit, April 04, 2023: Jyoti Enriquez received cycle 1 day 1 carboplatin, Taxol and Keytruda on 03/17/2023. She had bone pain for 3 days after treatment. She took Tylenol which did not help. She had no nausea or vomiting. She has intermittent constipation and then diarrhea. She denies cough. She denies any significant shortness of breath. No fevers, chills, night sweats or signs/symptoms of infection. She denies skin rashes. No bleeding. Tends to bruise easily. She was seen by Dr. Rosalba Reynoso for consultation. Updated Visit, March 17, 2023: Here with Chandler. Is Tu Cruz's mother. Ready for neoadjuvant treatment given high risk disease. Reviewed MRI, biopsy of second spot was negative. Thoroughly reviewed patients treatment plan. Initial Visit, February 21, 2023: Jyoti Enriquez presents today Hematology and Oncology evaluation. She is a 67 year old female who has a history of POTS syndrome and is adopted who is [employer] genetic testing is negative. She gives a story of having a normal mammogram in July 2022 and subsequently felt a lump in mid December 2022. She underwent imaging in [facility] and then had a biopsy that was consistent with a infiltrating ductal carcinoma. Biopsy further showed this to be grade 3 triple negative disease (HER2 low). She gives a prior history of having had multiple abdominal surgeries for adhesions approximately 10 years ago she is also had a Zain fundoplication on April 29, 2021. She is also had multiple back surgeries with cervical fusion and lumbar discectomy. She has had a history of stomach polyps and a partial small bowel obstruction in the remote past. She is appropriately upset because this interferes with her plans to buy [employer] in [place] near the [facility] and move there this year with her Tim. Despite high risk disease and the need for a protracted course of neoadjuvant chemotherapy according to keynote 512, I think she will be able to get to the [employer] multiple times. I reassured her that she appears to have curable disease and indeed she felt better. Although her work-up was initiated locally, she would like to transition her care to [facility] and I will make appropriate referrals. M grandmother Lucio's Mother stroke Birthfather?? Heart attack in 70s REVIEW OF SYSTEMS Per HPI and otherwise negative by full review of organ systems. ECOG PERFORMANCE STATUS: 0 PHYSICAL EXAMINATION: Vitals: BP 118/68 Pulse 90 Temp (Src) 97.6 (Temporal) Resp 16 Ht 5' 5.433 (1.66m) Wt 181 lb (82.1kg) SpO2 98% BMI 29.72 kg/(m^2). Body surface area is 1.95 meters squared. Exam limited to gross visualization where appropriate. Gen.: This is an age-appropriate patient in no acute distress. Head: Appears atraumatic with no visible lesions. Eyes: Pupils equally round and reactive to light, extraocular muscles are intact. Neck: Supple. Respiratory: Appears to be respiring comfortably. Neurologic: Nonfocal to gross visualization. Alert and oriented 3. Psychiatric: No evidence of inappropriate anxiety or depression. Skin: Visible areas of skin without lesions, wounds or petechiae. Erythematous blanching rash on her forearms and around the port on her chest, will monitor. Chaperoned Breast Exam April 29, 2023 (Sara Clinton) : Right breast shows continued improvement, now lesion measure 0.5 cm, Left breast was not examined. Prior exam for reference: 02/21/2023: Chaperoned breast exam (Evan Lambert): Fairly tender right breast with a 3 cm dense nodule just above the areola in the 11 o'clock position approximately 1 cm from the nipple. She has a secondary small nodule adjacent and more medial but otherwise breast is largely benign and actually socorro examination is negative. 04/08/2023: Chaperoned Breast Exam (Evan Lambert): Right breast mass at 12 o' clock just above the NAC definitely feels smaller (approx. 1.5 cm), Left breast is normal. ALLERGIES: ALLERGIES Allergen Reactions Hydrocodone Other: See Comments, GI Upset Headaches Oxycodone GI Upset Can take 1/2 tab, but full tab makes her sick 12 Hour Cold Capsule Intolerance Adhesive Other: See Comments Aller-Chlor Deconge* Unknown Chlorpheniramine-Ps* Unknown [id number]* Itching Decongest Multi-Act* Other: See Comments Diazepam Other: See Comments sick-headache Diphenhydramine Intolerance Levofloxacin Intolerance Nalbuphine Rash Progesterone Other: See Comments, GI Upset Speeds up metabolism Weight gain and voice hoarse Promethazine Unknown Pseudoephedrine Other: See Comments Other Reaction(s): Hyperactive, severe stimulation Other Reaction(s): Intolerance ANY Decongestant-Hyperactive Pseudoephedrine-Dm-* Intolerance ANY Decongestant-Hyperactive Ebspifr-Smg-Zor Red* Other: See Comments Other Reaction(s): Unknown Morphine Unknown, GI Upset, Vomiting, Other: See Comments Migraine Tramadol Itching, Unknown Tooth sensitivity Only tolerates low dose Only tolerates low dose MEDICATIONS: metFORMIN (GLUCOPHAGE) 500 mg tablet Take 1 tablet by mouth every 12 hours. OLANZapine (ZYPREXA) 5 mg tablet Take 1 tablet by mouth daily at bedtime. diazePAM (VALIUM) 2 mg tablet as needed. dicyclomine (BENTYL) 20 mg tablet q 8 HR. HYDROcodone-Acetaminophen 10-300 mg tab Take 1 tablet every 6 hours by oral route. hyoscyamine sublingual (LEVSIN SL) 0.125 mg DISSOLVE 1 TABLET UNDER THE TONGUE EVERY 6 HOURS NEEDED ibuprofen (MOTRIN) 600 mg tablet Take 400 mg by mouth at bedtime as needed. meclizine (ANTIVERT) 25 mg tab TAKE 1-2 TABLETS BY MOUTH FOUR TIMES A DAY NEEDED FOR DIZZINESS ondansetron orally disintegrating (ZOFRAN ODT) 4 mg disintegrating tablet pantoprazole DR (PROTONIX) 40 mg tablet Take 40 mg by mouth. scopolamine (TRANSDERM-SCOP) patch 1.5 mg/72 hr (delivers 1 mg over 3 days) APPLY ONE PATCH ON THE SKIN EVERY 3 DAYS. REMOVE OLD PATCH simvastatin (ZOCOR) 10 mg tablet TAKE ONE-HALF TABLET BY MOUTH EVERY NIGHT triamcinolone acetonide (KENALOG) 0.1 % cream Apply to affected area. eletriptan (RELPAX) 40 mg tablet TAKE 1 TABLET BY MOUTH AT ONSET OF MODERATE TO SEVERE MIGRAINE. MAY REPEAT DOSE IN 2 HOURS. MAX OF 2 DOSES IN 24 HOURS, 2 DAYS A WEEK levothyroxine (SYNTHROID) 50 mcg tablet aspirin/acetaminophen/caffeine (EXCEDRIN MIGRAINE ORAL) Excedrin Migraine as needed blood sugar diagnostic (ONETOUCH VERIO TEST STRIPS) test strip OneTouch Verio test strips sennosides (LAXATIVE ORAL) Take by mouth daily at bedtime. ondansetron (ZOFRAN) 8 mg tablet Take 1 tablet by mouth every 8 hours as needed for nausea/vomiting. LABORATORY VALUES: WBC (k/uL) Date Value 04/29/2023 3.99 RBC (m/uL) Date Value 04/29/2023 3.88 (L) Hemoglobin (g/dL) Date Value 04/29/2023 11.7 Hematocrit (%) Date Value 04/29/2023 33.8 (L) MCV (fL) Date Value 04/29/2023 87.1 MCH (pg) Date Value 04/29/2023 30.2 MCHC (g/dL) Date Value 04/29/2023 34.6 RDW-CV (%) Date Value 04/29/2023 15.0 Platelet Count (k/uL) Date Value 04/29/2023 211 MPV (fL) Date Value 04/29/2023 9.6 Glucose (mg/dL) Date Value 04/29/2023 177 (H) BUN (mg/dL) Date Value 04/29/2023 12 Creatinine (mg/dL) Date Value 04/29/2023 0.78 Sodium (mmol/L) Date Value 04/29/2023 141 Potassium (mmol/L) Date Value 04/29/2023 4.2 Chloride (mmol/L) Date Value 04/29/2023 103 CO2 (mmol/L) Date Value 04/29/2023 27 Protein, Total (g/dL) Date Value 04/29/2023 6.7 Albumin (g/dL) Date Value 04/29/2023 4.3 Calcium, Total (mg/dL) Date Value 04/29/2023 9.7 Alkaline Phosphatase (U/L) Date Value 04/29/2023 109 Bilirubin, Total (mg/dL) Date Value 04/29/2023 0.4 AST (U/L) Date Value 04/29/2023 31 ALT (U/L) Date Value 04/29/2023 56 (H) DIAGNOSIS: (C50.111, Z17.1) Malignant neoplasm of central portion of right breast in female, estrogen receptor negative (HCC) (primary encounter diagnosis) Plan: CONSULT TO PALLIATIVE CARE (Z29.89) Immunotherapy (E06.9) Thyroiditis (R73.9) Blood glucose elevated PAST MEDICAL HISTORY Diagnosis Date Anemia Arthritis Breast cancer (HCC) Diabetes (HCC) Diverticulitis of colon Salty Bolton virus infection Essential (primary) hypertension Fibrocystic breast GERD (gastroesophageal reflux disease) Hyperlipidemia Hypothyroidism IBS (irritable bowel syndrome) Malignant neoplasm of upper-outer quadrant of right breast in female, estrogen receptor positive (HCC) 02/21/2023 Migraines POTS (postural orthostatic tachycardia syndrome) Small bowel obstruction (HCC) Thyroid disease Thyroid nodule Vertigo Vitreous detachment of right eye PAST SURGICAL HISTORY Procedure Laterality Date ABDOMINAL SURGERY HX 2004 ADDITIONAL SPINAL FUSION 07/27/2004 APPENDECTOMY BX OF BREAST; INCISIONAL COLONOSCOPY HAND SURGERY HX HERNIA REPAIR HX 04/29/2021 Hiatal LASIK 2002 PAST SURGICAL HISTORY OF cervical fusion 2013, 2017 PAST SURGICAL HISTORY OF Right Foot PAST SURGICAL HISTORY OF Knee Arthroscopy w/ACL reconstruction x2 PAST SURGICAL HISTORY OF Lipoma resection PAST SURGICAL HISTORY OF Lumbar Discectomy PAST SURGICAL HISTORY OF Mass excision PAST SURGICAL HISTORY OF Small bowel resection SINUS SURGERY HX SMALL INTESTINE SURGERY HX TONSILLECTOMY HX UNLISTED STOMACH SURGERY Removal stomach polyps VAGINAL HYSTERECTOMY Social History Tobacco Use Smoking status: Former Passive exposure: Past Smokeless tobacco: Never Tobacco comments: quit smoking in 2014 Vaping Use Vaping Use: Never used Substance Use Topics Alcohol use: Not Currently Comment: rarely Drug use: Never FAMILY HISTORY Adopted: Yes Problem Relation Age of Onset Stroke Mother other (addisons) Maternal Grandmother I spent a total of 40 minutes on the date of service which included preparing to see the patient, [id number] patient care, completing clinical documentation, performing a medically appropriate examination, counseling and educating the patient/family/caregiver, ordering medications, tests, or procedures, independently interpreting results (not separately reported), communicating results to the patient/family/caregiver, and care coordination (not separately reported). Paulo Singh MD, CPE Hematology and Oncology Services Provided at: [place], [place] Scribe Attestation: This note was scribed by Rena Gustafson on April 29, 2023 under the direction and supervision of Dr. Pualo Singh. I attest that all of the information documented is correct to the best of my knowledge. Provider Attestation: I, Paulo Singh MD, attest that all information documented by the above scribe is correct, and was supervised by me and under my direction. CC: Dr. Cecelia Malhotra [address] [facility] [address] [facility] [id number] [address] Pankaj sOei [address] [facility] [address] [facility] [id number] [address] Rosalba Reynoso documented in this encounter [facility] 04-22-2023 Miscellaneous Notes SOCIAL WORK FOLLOW UP NOTE: [facility]ENTER Date of service:04/22/23 Jyoti Enriquez is being seen for a follow up social work visit. Today's visit includes: patient TOPICS ADDRESSED: wigs PLAN: Continue follow up as needed F/U APPOINTMENT: PRN Assigned SW listed in Care Team tab: Yes Patient called in to ask for an update on a wig that was going to be ordered. SW emailed [facility] and requested an update. SW will remain available and will follow up as appropriate. MARK Ayers documented in this encounter [facility] 04-22-2023 Note HNO ID: [id number] Author: Chelsie Hanley, RN Service: ? Author Type: Registered Nurse Type: Progress Notes Filed: 04/22/2023 2:57 PM Note Text: CMP reviewed with HM, no new orders received. Will recheck in 1 week. Chelsie Hanley RN [facility] 04-22-2023 History of Presen t illness Narrative CMP reviewed with , no new orders received. Will recheck in 1 week. Chelsie Hanley RN documented in this encounter [facility] 04-15-2023 Note [facility] 04-12-2023 Note [facility] 04-12-2023 History of Presen t illness Narrative [facility] Consultation Note Genetic Counselor: Reji Plaza MS, [facility] Patient: Jyoti Enriquez Patient Name and confirmed at initiation of visit. Appointment occurred with audiovisual communication through [employer] [facility]. I have communicated my name and active licensure. The patient's identity and physical location were verified at the time of this visit. Either the patient or their legal circulation sales representative has been informed of the risks and benefits of -- and alternatives to -- treatment through a remote evaluation and consents to proceed with the evaluation remotely. HIGH LEVEL SUMMARY: The patient's personal history is potentially suggestive of a hereditary cancer syndrome. The patient provided informed consent for Multi-Cancer panel through [facility]. Results are expected in 2-3 weeks. IDENTIFICATION AND CHIEF COMPLAINT: Dr. Suman Morel requested a consultation for genetic counseling and risk assessment for Jyoti Enriquez, a 67 year old female, for discussion of her personal history of breast cancer. She presents to clinic today to discuss the possibility of a genetic predisposition to cancer, and to further clarify her risks, as well as her family members' risks for cancer. HISTORY OF PRESENT ILLNESS: In February of 2023, at the age of 67, Jyoti Enriquez was diagnosed with triple negative, invasive ductal carcinoma of the Right breast. This is being treated with neoadjuvant chemotherapy. PAST MEDICAL HISTORY Diagnosis Date Anemia Arthritis Breast cancer (HCC) Diabetes (HCC) Diverticulitis of colon Salty Bolton virus infection Essential (primary) hypertension Fibrocystic breast GERD (gastroesophageal reflux disease) Hyperlipidemia Hypothyroidism IBS (irritable bowel syndrome) Malignant neoplasm of upper-outer quadrant of right breast in female, estrogen receptor positive (HCC) 02/21/2023 Migraines POTS (postural orthostatic tachycardia syndrome) Small bowel obstruction (HCC) Thyroid disease Thyroid nodule Vertigo Vitreous detachment of right eye PAST SURGICAL HISTORY Procedure Laterality Date ABDOMINAL SURGERY HX 2004 ADDITIONAL SPINAL FUSION 07/27/2004 APPENDECTOMY BX OF BREAST; INCISIONAL COLONOSCOPY HAND SURGERY HX HERNIA REPAIR HX 04/29/2021 Hiatal LASIK 2002 PAST SURGICAL HISTORY OF cervical fusion 2013, 2017 PAST SURGICAL HISTORY OF Right Foot PAST SURGICAL HISTORY OF Knee Arthroscopy w/ACL reconstruction x2 PAST SURGICAL HISTORY OF Lipoma resection PAST SURGICAL HISTORY OF Lumbar Discectomy PAST SURGICAL HISTORY OF Mass excision PAST SURGICAL HISTORY OF Small bowel resection SINUS SURGERY HX SMALL INTESTINE SURGERY HX TONSILLECTOMY HX UNLISTED STOMACH SURGERY Removal stomach polyps VAGINAL HYSTERECTOMY SOCIAL HISTORY: Social History Tobacco Use Smoking status: Former Passive exposure: Past Smokeless tobacco: Never Tobacco comments: quit smoking in 2014 Vaping Use Vaping Use: Never used Substance Use Topics Alcohol use: Not Currently Comment: rarely Drug use: Never FAMILY HISTORY: We obtained a detailed, 4-generation family history. Significant diagnoses are listed below: Adopted, limited knowledge of family history 3 brothers who are full siblings 2 maternal half-sisters No known family history of cancer A copy of the patient's pedigree will be available under the scanned documents tab following today's visit. GENETIC COUNSELING RISK ASSESSMENT, DISCUSSION, AND SUGGESTED FOLLOW UP: We reviewed the natural history and genetic etiology of sporadic, familial and hereditary cancer syndromes. The patient's personal history is potentially suggestive of a hereditary cancer syndrome. The patient meets NCCN HBOC testing criteria based on her personal history of triple negative breast cancer . We discussed that identification of a hereditary cancer syndrome may help her care providers tailor her medical management. If a mutation is detected, the patient will be referred back to the referring provider and to any additional appropriate care providers to discuss the relevant options. Inheritance of hereditary cancer syndromes was discussed with the patient. If a mutation is not found in the patient, this will decrease the likelihood of a hereditary cancer syndrome as the explanation for the patient's personal history of breast cancer. However, it cannot completely rule out this possibility. Cancer surveillance options would be discussed for the patient according to the appropriate standard National Comprehensive Cancer Network and [place] Cancer Society guidelines, with consideration of their personal and family history risk factors. In this case, the patient will be referred back to their care providers for discussions of management. Based on this assessment of the patient's family and personal history, genetic testing is recommended. It was reviewed that if she were to have a hereditary cause for her breast cancer it would most likely be due to a BRCA1/2 mutation. It was also discussed that other genes beyond BRCA1/2 could account for the history and be tested along with BRCA1/2 via a multigene panel. The patient was offered Multi-Cancer panel through [facility]. After considering the risks, benefits, and limitations, the patient chose to pursue and provided informed consent for the following testing: Multi-Cancer panel through [facility]. The Multi-Cancer Panel includes AIP, ALK, APC, JOZEF, AXIN2, BAP1, BARD1, BLM, BMPR1A, BRCA1, BRCA2, BRIP1, CASR, CDC73, CDH1, CDK4, CDKN1B, CDKN1C, CDKN2A, CEBPA, CHEK2, CTNNA1, DICER1, DIS3L2, EGFR, EPCAM, FH, FLCN, GATA2, GPC3, GREM1, HOXB13, HRAS, KIT, MAX, MEN1, MET, MITF, MLH1, MSH2, MSH3, MSH6, MUTYH, NBN, NF1, NF2, NTHL1, PALB2, PDGFRA, PHOX2B, PMS2, POLD1, POLE, POT1, HHGWJ1G, PTCH1, PTEN, RAD50, RAD51C, RAD51D, RB1, RECQL4, RET, RUNX1, SDHA, SDHAF2, SDHB, SDHC, SDHD, SMAD4, SMARCA4, SMARCB1, SMARCE1, STK11, SUFU, TERC, TERT, HZQP629, TP53, TSC1, TSC2, VHL, WRN, and WT1. The Multi-Cancer panel looks at genes related to the following organ systems: Breast and gynecologic (breast, ovarian, uterine) Gastrointestinal (colorectal, gastric, pancreatic) Endocrine (thyroid, paraganglioma/pheochromocytoma, parathyroid, pituitary) Genitourinary (renal/urinary tract, prostate) Skin (melanoma, basal cell carcinoma) Brain/nervous system Sarcoma Hematologic (myelodysplastic syndrome/leukemia) We discussed that an NGS panel can rarely result in an unexpected finding which may or may not be related to the presenting phenotype. We discussed that [employer] may contact the patient by text or email regarding billing. The patient should watch for this communication and respond promptly. The patient should contact [employer] directly with any billing questions (ph. [phone]). Per the patient's request, I will contact her by telephone to discuss these results. A follow up genetic counseling visit will be scheduled if requested. The patient was seen for a total of 30 minutes, greater than 50% of which was spent [id number] counseling. This plan is being carried out under the oversight of Dr. Perlita Jennings. This note will also be sent to the referring provider via the electronic medical record. Reji Plaza, MS, [facility] Licensed, Certified Genetic Counselor [facility] CC: Dr. Suman Dalyh Dannielle documented in this encounter [facility] 04-08-2023 Note [facility] 04-08-2023 Instructions Rena Gustafson - 04/08/2023 9:58 AM EST Proceed with cycle 2 day 1 Carboplatin / Taxol / Keytruda and day 8,15 next week and week after. Will decrease IV dexamethasone to 4 mg due to elevated blood glucose. RTC in 3 weeks prior to C3. Labs weekly as ordered. documented in this encounter [facility] 04-08-2023 History of Presen t illness Narrative Images from the original note were not included. 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 Following additional imaging, including MRI breast bilateral, CT CAP, echocardiogram she will be ready for initiation of neoadjuvant chemotherapy with immunotherapy. Preceding this the patient desired to have an opinion with one of our [facility] breast surgeons and may need lymph node sampling prior to start of therapy. Given TNBCa stage IIA high risk disease, will proceed with neoadjuvant systemic therapy. Plan for treatment with Keynote 512 - MRI, 4 cycles keytruda Carboplatin + taxol - MRI - 4 cycles keytruda AC MRI then surgery. Blood sugar is improving on metformin. PLAN: Proceed with cycle 2 day 1 Carboplatin / Taxol / Keytruda and day 8,15 next week and week after. Will decrease IV dexamethasone to 4 mg due to elevated blood glucose. RTC in 3 weeks prior to C3. Labs weekly as ordered. HPI: CASE HISTORY: Reverse Chronological Order 03/17/2023 - Started Carboplatin / Taxol / Keytruda 03/15/2023 - MRI Breast: 2.2 cm spiculated enhancing mass in the 12:00 anterior depth-middle depth right breast at site of biopsy-proven malignancy. 2. No other definite suspicious areas of enhancement in either breast. No lymphadenopathy. 03/10/2023 [facility]G breast bx 2nd right breast lesion - negative for additional malignancy 03/09/2023 CT CAP: negative for metastatic disease. Hepatic steatosis. 01/20/2023 right breast mass biopsy invasive ductal carcinoma grade 3 ER 0, AR 0 HER2 1+ by IHC negative. 01/20/2023 postbiopsy diagnostic mammography metallic marker placed in targeted location within the upper outer quadrant right breast. 01/17/2023 diagnostic mammography right breast category 4 suspicious for malignancy. Ultrasound demonstrates bilobed hypoechoic mass with acoustic shadowing smaller component measuring 5.9 mm connected to a larger deeper 8.3 mm lesion with a connecting stalk measuring 2.3 mm. December 2022: Mid December felt a lump in her right breast July 2022 normal mammogram Updated Visit, April 08, 2023: Jyoti Hdz returns today for follow up accompanied by her Chandler. She has lost the rest of her hair. She has been started on Zyprexa for nausea. She has concerns over taking all three of her new meds at the same time because she seems to have side effects to anything she takes. Reports most anything she eats is digested quickly and she is having diarrhea frequently, he has started wearing adult diapers. Has not taken Senna for her constipation for the last 3 days. Her blood glucose has been improving after being started on metformin, but is having problems still with it spiking any time she has carbs. Dr. Osei has recommended starting something else if they continue to stay elevated. Today her urine this morning was darker, thinks she is drinking enough water. Also has had blood in her mucus the last few times she has blow her nose. Having eczema spots. Otherwise, she is feeling good overall. After last treatment she had weakness and muscle pain all over. We reviewed her labs, she is not anemic and her platelets are great. She is willing to have her CMP done on Tuesday. We reassured her that her diet is directionally correct, encouraged her to stop her Senna. Reassured her that I see early response already. Updated Visit, April 04, 2023: Jyoti Enriquez received cycle 1 day 1 carboplatin, Taxol and Keytruda on 03/17/2023. She had bone pain for 3 days after treatment. She took Tylenol which did not help. She had no nausea or vomiting. She has intermittent constipation and then diarrhea. She denies cough. She denies any significant shortness of breath. No fevers, chills, night sweats or signs/symptoms of infection. She denies skin rashes. No bleeding. Tends to bruise easily. She was seen by Dr. Rosalba Reynoso for consultation. Updated Visit, March 17, 2023: Here with Chandler. Is Tu Cruz's mother. Ready for neoadjuvant treatment given high risk disease. Reviewed MRI, biopsy of second spot was negative. Thoroughly reviewed patients treatment plan. Initial Visit, February 21, 2023: Jyoti Enriquez presents today Hematology and Oncology evaluation. She is a 67 year old female who has a history of POTS syndrome and is adopted who is [facility] genetic testing is negative. She gives a story of having a normal mammogram in July 2022 and subsequently felt a lump in mid December 2022. She underwent imaging in [facility] and then had a biopsy that was consistent with a infiltrating ductal carcinoma. Biopsy further showed this to be grade 3 triple negative disease (HER2 low). She gives a prior history of having had multiple abdominal surgeries for adhesions approximately 10 years ago she is also had a Zain fundoplication on April 29, 2021. She is also had multiple back surgeries with cervical fusion and lumbar discectomy. She has had a history of stomach polyps and a partial small bowel obstruction in the remote past. She is appropriately upset because this interferes with her plans to buy cabin in [place] near the [facility] and move there this year with her Tim. Despite high risk disease and the need for a protracted course of neoadjuvant chemotherapy according to keynote 512, I think she will be able to get to the [facility] times. I reassured her that she appears to have curable disease and indeed she felt better. Although her work-up was initiated locally, she would like to transition her care to [facility] and I will make appropriate referrals. M grandmother Lucio's Mother stroke Birthfather?? Heart attack in 70s REVIEW OF SYSTEMS Per HPI and otherwise negative by full review of organ systems. ECOG PERFORMANCE STATUS: 0 PHYSICAL EXAMINATION: Vitals: BP 149/82 Pulse 94 Temp (Src) 97.7 (Temporal) Resp 16 Ht 5' 5.433 (1.66m) Wt 181 lb (82.1kg) SpO2 97% BMI 29.72 kg/(m^2). Body surface area is 1.95 meters squared. Exam limited to gross visualization where appropriate. Gen.: This is an age-appropriate patient in no acute distress. Head: Appears atraumatic with no visible lesions. Eyes: Pupils equally round and reactive to light, extraocular muscles are intact. Neck: Supple. Respiratory: Appears to be respiring comfortably. Neurologic: Nonfocal to gross visualization. Alert and oriented 3. Psychiatric: No evidence of inappropriate anxiety or depression. Skin: Visible areas of skin without lesions, wounds or petechiae. Erythematous blanching rash on her forearms and around the port on her chest, will monitor. Chaperoned Breast Exam April 08, 2023 (Evan Lambert) : Right breast mass at 12 o' clock just above the NAC definitely feels smaller (approx. 1.5 cm), Left breast is normal. Prior exam for reference: 02/21/2023: Chaperoned breast exam ([facility]): Fairly tender right breast with a 3 cm dense nodule just above the areola in the 11 o'clock position approximately 1 cm from the nipple. She has a secondary small nodule adjacent and more medial but otherwise breast is largely benign and actually socorro examination is negative. ALLERGIES: ALLERGIES Allergen Reactions Hydrocodone Other: See Comments, GI Upset Headaches Oxycodone GI Upset Can take 1/2 tab, but full tab makes her sick 12 Hour Cold Capsule Intolerance Adhesive Other: See Comments Aller-Chlor Deconge* Unknown Chlorpheniramine-Ps* Unknown Xhe-Ckinrbzyk-Sviui* Itching Decongest Multi-Act* Other: See Comments Diazepam Other: See Comments sick-headache Diphenhydramine Intolerance Levofloxacin Intolerance Nalbuphine Rash Progesterone Other: See Comments, GI Upset Speeds up metabolism Weight gain and voice hoarse Promethazine Unknown Pseudoephedrine Other: See Comments Other Reaction(s): Hyperactive, severe stimulation Other Reaction(s): Intolerance ANY Decongestant-Hyperactive Pseudoephedrine-Dm-* Intolerance ANY Decongestant-Hyperactive Jkecmwp-Ryh-Xuw Red* Other: See Comments Other Reaction(s): Unknown Morphine Unknown, GI Upset, Vomiting, Other: See Comments Migraine Tramadol Itching, Unknown Tooth sensitivity Only tolerates low dose Only tolerates low dose MEDICATIONS: metFORMIN (GLUCOPHAGE) 500 mg tablet Take 1 tablet by mouth every 12 hours. OLANZapine (ZYPREXA) 5 mg tablet Take 1 tablet by mouth daily at bedtime. ondansetron (ZOFRAN) 8 mg tablet Take 1 tablet by mouth every 8 hours as needed for nausea/vomiting. diazePAM (VALIUM) 2 mg tablet as needed. dicyclomine (BENTYL) 20 mg tablet q 8 HR. HYDROcodone-Acetaminophen 10-300 mg tab Take 1 tablet every 6 hours by oral route. hyoscyamine sublingual (LEVSIN SL) 0.125 mg DISSOLVE 1 TABLET UNDER THE TONGUE EVERY 6 HOURS NEEDED ibuprofen (MOTRIN) 600 mg tablet Take 400 mg by mouth at bedtime as needed. meclizine (ANTIVERT) 25 mg tab TAKE 1-2 TABLETS BY MOUTH FOUR TIMES A DAY NEEDED FOR DIZZINESS ondansetron orally disintegrating (ZOFRAN ODT) 4 mg disintegrating tablet pantoprazole DR (PROTONIX) 40 mg tablet Take 40 mg by mouth. scopolamine (TRANSDERM-SCOP) patch 1.5 mg/72 hr (delivers 1 mg over 3 days) APPLY ONE PATCH ON THE SKIN EVERY 3 DAYS. REMOVE OLD PATCH simvastatin (ZOCOR) 10 mg tablet TAKE ONE-HALF TABLET BY MOUTH EVERY NIGHT triamcinolone acetonide (KENALOG) 0.1 % cream Apply to affected area. eletriptan (RELPAX) 40 mg tablet TAKE 1 TABLET BY MOUTH AT ONSET OF MODERATE TO SEVERE MIGRAINE. MAY REPEAT DOSE IN 2 HOURS. MAX OF 2 DOSES IN 24 HOURS, 2 DAYS A WEEK levothyroxine (SYNTHROID) 50 mcg tablet aspirin/acetaminophen/caffeine (EXCEDRIN MIGRAINE ORAL) Excedrin Migraine as needed blood sugar diagnostic (ONETOUCH VERIO TEST STRIPS) test strip OneTouch Verio test strips sennosides (LAXATIVE ORAL) Take by mouth daily at bedtime. LABORATORY VALUES: WBC (k/uL) Date Value 04/08/2023 3.64 (L) RBC (m/uL) Date Value 04/08/2023 3.96 Hemoglobin (g/dL) Date Value 04/08/2023 11.9 Hematocrit (%) Date Value 04/08/2023 34.9 (L) MCV (fL) Date Value 04/08/2023 88.1 MCH (pg) Date Value 04/08/2023 30.1 MCHC (g/dL) Date Value 04/08/2023 34.1 RDW-CV (%) Date Value 04/08/2023 13.6 Platelet Count (k/uL) Date Value 04/08/2023 351 MPV (fL) Date Value 04/08/2023 9.4 Glucose (mg/dL) Date Value 04/08/2023 214 (H) BUN (mg/dL) Date Value 04/08/2023 15 Creatinine (mg/dL) Date Value 04/08/2023 0.76 Sodium (mmol/L) Date Value 04/08/2023 139 Potassium (mmol/L) Date Value 04/08/2023 4.0 Chloride (mmol/L) Date Value 04/08/2023 103 CO2 (mmol/L) Date Value 04/08/2023 26 Protein, Total (g/dL) Date Value 04/08/2023 7.0 Albumin (g/dL) Date Value 04/08/2023 4.5 Calcium, Total (mg/dL) Date Value 04/08/2023 9.8 Alkaline Phosphatase (U/L) Date Value 04/08/2023 111 Bilirubin, Total (mg/dL) Date Value 04/08/2023 0.4 AST (U/L) Date Value 04/08/2023 59 (H) ALT (U/L) Date Value 04/08/2023 75 (H) DIAGNOSIS: (C50.411, Z17.1) Malignant neoplasm of upper-outer quadrant of right breast in female, estrogen receptor negative (HCC) (primary encounter diagnosis) (Z29.89) Immunotherapy (R79.9) Abnormal blood chemistry (E06.9) Thyroiditis (R73.9) Blood glucose elevated PAST MEDICAL HISTORY Diagnosis Date Anemia Arthritis Breast cancer (HCC) Diabetes (HCC) Diverticulitis of colon Salty Bolton virus infection Essential (primary) hypertension Fibrocystic breast GERD (gastroesophageal reflux disease) Hyperlipidemia Hypothyroidism IBS (irritable bowel syndrome) Malignant neoplasm of upper-outer quadrant of right breast in female, estrogen receptor positive (HCC) 02/21/2023 Migraines POTS (postural orthostatic tachycardia syndrome) Small bowel obstruction (HCC) Thyroid disease Thyroid nodule Vertigo Vitreous detachment of right eye PAST SURGICAL HISTORY Procedure Laterality Date ABDOMINAL SURGERY HX 2004 ADDITIONAL SPINAL FUSION 07/27/2004 APPENDECTOMY BX OF BREAST; INCISIONAL COLONOSCOPY HAND SURGERY HX HERNIA REPAIR HX 04/29/2021 Hiatal LASIK 2002 PAST SURGICAL HISTORY OF cervical fusion 2013, 2017 PAST SURGICAL HISTORY OF Right Foot PAST SURGICAL HISTORY OF Knee Arthroscopy w/ACL reconstruction x2 PAST SURGICAL HISTORY OF Lipoma resection PAST SURGICAL HISTORY OF Lumbar Discectomy PAST SURGICAL HISTORY OF Mass excision PAST SURGICAL HISTORY OF Small bowel resection SINUS SURGERY HX SMALL INTESTINE SURGERY HX TONSILLECTOMY HX UNLISTED STOMACH SURGERY Removal stomach polyps VAGINAL HYSTERECTOMY Social History Tobacco Use Smoking status: Former Passive exposure: Past Smokeless tobacco: Never Tobacco comments: quit smoking in 2014 Vaping Use Vaping Use: Never used Substance Use Topics Alcohol use: Not Currently Comment: rarely Drug use: Never FAMILY HISTORY Adopted: Yes Problem Relation Age of Onset Stroke Mother other (addisons) Maternal Grandmother I spent a total of 30 minutes on the date of the service which included preparing to see the patient, [id number] patient care, completing clinical documentation, performing a medically appropriate examination, counseling and educating the patient/family/caregiver, ordering medications, tests, or procedures, independently interpreting results (not separately reported), communicating results to the patient/family/caregiver, and care coordination (not separately reported). Paulo Singh MD, CPE Hematology and Oncology Services Provided at: [place], [place] Scribe Attestation: This note was scribed by Rena Gustafson on April 08, 2023 under the direction and supervision of Dr. Paulo Singh. I attest that all of the information documented is correct to the best of my knowledge. Provider Attestation: I, Paulo Singh MD, attest that all information documented by the above scribe is correct, and was supervised by me and under my direction. CC: Dr. Cecelia Malhotra [address] [facility] [address] [facility] [address] [address]. Pankaj Osei [address] [facility] A [facility] [address] [address] Rosalba Reynoso documented in this encounter [facility] 03-25-2023 Miscellaneous Notes ART THERAPY NOTE SERVICE DATE: 03/25/2023 SERVICE TIME: 11:00 Referred By: self Reason for Referral: Patient request Session Type: Initial Time Spent (minutes): 30 Goals: Coping Through Diversion Interventions: Insight Oriented Response Before After Mood Anxiety Pain Scale: 0 = No pain/anxiety 10 = Worst possible pain/anxiety Response: Patient's Verbal Response: Positive Family Present: Yes Family Member: Family Verbal Response: Positive Outcome: Goals: Met Follow Up: Will Follow Up as Able COMMENTS: Patient was introduced to art therapy services and given mandala sheets for at home mindfulness. Patient indicated interest in art therapy at her next infusion date, will follow up then. SIGNATURE: Ludni Felix PATIENT NAME: Jyoti Enriquez DATE: March 25, 2023 TIME: 1:18 PM PAGER/CONTACT #: documented in this encounter [facility] 03-25-2023 Note [facility] 03-25-2023 Note [facility] 03-25-2023 History of Presen t illness Narrative Patient lab glucose 407 today. Discussed with Erendira Elaine CNP.APRN who has counseled patient. Jyoti has mentioned that she has tried metformin and it didn't work recommendations made for her to see her PCP and today's decadron dose was decreased. Patient has verbalized understanding and agrees with plan Alayna Sneed RN documented in this encounter [facility] 03-25-2023 History of Presen t illness Narrative NAME: Jyoti Enriquez [facility] NO.: [id number] DATE OF SERVICE: March 25, 2023 (Samantha) Some elements in this clinic note that are critical to medical decision making have been carefully reviewed and included from a prior clinic note dated: March 17, 2023. (Dr. 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 Following additional imaging, including MRI breast bilateral, CT CAP, echocardiogram she will be ready for initiation of neoadjuvant chemotherapy with immunotherapy. Preceding this the patient desired to have an opinion with one of our [facility] breast surgeons and may need lymph node sampling prior to start of therapy. Given TNBCa stage IIA high risk disease, will proceed with neoadjuvant systemic therapy. Plan for treatment with Keynote 512 - MRI, 4 cycles keytruda Carboplatin + taxol - MRI - 4 cycles keytruda AC MRI then surgery. PLAN: Proceed with cycle 1 day 8 Carboplatin / Taxol / Keytruda and day 15 next week. Will decrease IV dexamethasone to 4 mg due to elevated blood glucose. Follow up on 04/08/[address] Singh prior to start of cycle 2. Labs weekly as ordered. Will contact patient's PCP, Dr. Osei, regarding patient's elevated blood glucose for further management. Today's blood glucose was 407. HPI: CASE HISTORY: Reverse Chronological Order 03/17/2023 - Started Carboplatin / Taxol / Keytruda 03/15/2023 - MRI Breast: 2.2 cm spiculated enhancing mass in the 12:00 anterior depth-middle depth right breast at site of biopsy-proven malignancy. 2. No other definite suspicious areas of enhancement in either breast. No lymphadenopathy. 03/10/2023 USG breast bx 2nd right breast lesion - negative for additional malignancy 03/09/2023 CT CAP: negative for metastatic disease. Hepatic steatosis. 01/20/2023 right breast mass biopsy invasive ductal carcinoma grade 3 ER 0, AR 0 HER2 1+ by IHC negative. 01/20/2023 postbiopsy diagnostic mammography metallic marker placed in targeted location within the upper outer quadrant right breast. 01/17/2023 diagnostic mammography right breast category 4 suspicious for malignancy. Ultrasound demonstrates bilobed hypoechoic mass with acoustic shadowing smaller component measuring 5.9 mm connected to a larger deeper 8.3 mm lesion with a connecting stalk measuring 2.3 mm. December 2022: Mid December felt a lump in her right breast July 2022 normal mammogram Updated Visit, April 04, 2023: Jyoti Enriquez received cycle 1 day 1 carboplatin, Taxol and Keytruda on 03/17/2023. She had bone pain for 3 days after treatment. She took Tylenol which did not help. She had no nausea or vomiting. She has intermittent constipation and then diarrhea. She denies cough. She denies any significant shortness of breath. No fevers, chills, night sweats or signs/symptoms of infection. She denies skin rashes. No bleeding. Tends to bruise easily. She was seen by Dr. Rosalba Reynoso for consultation. Updated Visit, March 17, 2023: Here with [place]. Is Tu Cruz's mother. Ready for neoadjuvant treatment given high risk disease. Reviewed MRI, biopsy of second spot was negative. Thoroughly reviewed patients treatment plan. Initial Visit, February 21, 2023: Jyoti Enriquez presents today Hematology and Oncology evaluation. She is a 67 year old female who has a history of POTS syndrome and is adopted who is [employer] genetic testing is negative. She gives a story of having a normal mammogram in July 2022 and subsequently felt a lump in mid December 2022. She underwent imaging in [facility] and then had a biopsy that was consistent with a infiltrating ductal carcinoma. Biopsy further showed this to be grade 3 triple negative disease (HER2 low). She gives a prior history of having had multiple abdominal surgeries for adhesions approximately 10 years ago she is also had a Zain fundoplication on April 29, 2021. She is also had multiple back surgeries with cervical fusion and lumbar discectomy. She has had a history of stomach polyps and a partial small bowel obstruction in the remote past. She is appropriately upset because this interferes with her plans to buy [employer] in [place] near the [facility] and move there this year with her Tim. Despite high risk disease and the need for a protracted course of neoadjuvant chemotherapy according to keynote 512, I think she will be able to get to the [employer] multiple times. I reassured her that she appears to have curable disease and indeed she felt better. Although her work-up was initiated locally, she would like to transition her care to [facility] and I will make appropriate referrals. M grandmother Lucio's Mother stroke Birthfather?? Heart attack in 70s REVIEW OF SYSTEMS Per HPI and otherwise negative by full review of organ systems. ECOG PERFORMANCE STATUS: 0 PHYSICAL EXAMINATION: Vitals: BP 149/77 Pulse 100 Temp (Src) 97.5 (Temporal) Resp 16 Ht 5' 5.433 (1.66m) Wt 185 lb (83.9kg) SpO2 97% BMI 30.38 kg/(m^2). Body surface area is 1.97 meters squared. Exam limited to gross visualization where appropriate. Gen.: This is an age-appropriate patient in no acute distress. Head: Appears atraumatic with no visible lesions. Eyes: Pupils equally round and reactive to light, extraocular muscles are intact. Neck: Supple. Respiratory: Appears to be respiring comfortably. Neurologic: Nonfocal to gross visualization. Alert and oriented 3. Psychiatric: No evidence of inappropriate anxiety or depression. Skin: Visible areas of skin without rash, lesions, wounds or petechiae. Prior exam for reference Chaperoned breast exam (Evan Lambert): Fairly tender right breast with a 3 cm dense nodule just above the areola in the 11 o'clock position approximately 1 cm from the nipple. She has a secondary small nodule adjacent and more medial but otherwise breast is largely benign and actually socorro examination is negative. ALLERGIES: ALLERGIES Allergen Reactions Hydrocodone Other: See Comments, GI Upset Headaches Oxycodone GI Upset Can take 1/2 tab, but full tab makes her sick 12 Hour Cold Capsule Intolerance Adhesive Other: See Comments Aller-Chlor Deconge* Unknown Chlorpheniramine-Ps* Unknown Jdk-Sekvltbue-Gcsof* Itching Decongest Multi-Act* Other: See Comments Diazepam Other: See Comments sick-headache Diphenhydramine Intolerance Levofloxacin Intolerance Nalbuphine Rash Progesterone Other: See Comments, GI Upset Speeds up metabolism Weight gain and voice hoarse Promethazine Unknown Pseudoephedrine Other: See Comments Other Reaction(s): Hyperactive, severe stimulation Other Reaction(s): Intolerance ANY Decongestant-Hyperactive Pseudoephedrine-Dm-* Intolerance ANY Decongestant-Hyperactive Uubrxxv-Mon-Gee Red* Other: See Comments Other Reaction(s): Unknown Morphine Unknown, GI Upset, Vomiting, Other: See Comments Migraine Tramadol Itching, Unknown Tooth sensitivity Only tolerates low dose Only tolerates low dose MEDICATIONS: sennosides (LAXATIVE ORAL) Take by mouth daily at bedtime. OLANZapine (ZYPREXA) 5 mg tablet Take 1 tablet by mouth daily at bedtime. ondansetron (ZOFRAN) 8 mg tablet Take 1 tablet by mouth every 8 hours as needed for nausea/vomiting. diazePAM (VALIUM) 2 mg tablet as needed. dicyclomine (BENTYL) 20 mg tablet q 8 HR. HYDROcodone-Acetaminophen 10-300 mg tab Take 1 tablet every 6 hours by oral route. hyoscyamine sublingual (LEVSIN SL) 0.125 mg DISSOLVE 1 TABLET UNDER THE TONGUE EVERY 6 HOURS NEEDED ibuprofen (MOTRIN) 600 mg tablet Take 400 mg by mouth at bedtime as needed. meclizine (ANTIVERT) 25 mg tab TAKE 1-2 TABLETS BY MOUTH FOUR TIMES A DAY NEEDED FOR DIZZINESS ondansetron orally disintegrating (ZOFRAN ODT) 4 mg disintegrating tablet pantoprazole DR (PROTONIX) 40 mg tablet Take 40 mg by mouth. scopolamine (TRANSDERM-SCOP) patch 1.5 mg/72 hr (delivers 1 mg over 3 days) APPLY ONE PATCH ON THE SKIN EVERY 3 DAYS. REMOVE OLD PATCH simvastatin (ZOCOR) 10 mg tablet TAKE ONE-HALF TABLET BY MOUTH EVERY NIGHT triamcinolone acetonide (KENALOG) 0.1 % cream Apply to affected area. eletriptan (RELPAX) 40 mg tablet TAKE 1 TABLET BY MOUTH AT ONSET OF MODERATE TO SEVERE MIGRAINE. MAY REPEAT DOSE IN 2 HOURS. MAX OF 2 DOSES IN 24 HOURS, 2 DAYS A WEEK levothyroxine (SYNTHROID) 50 mcg tablet aspirin/acetaminophen/caffeine (EXCEDRIN MIGRAINE ORAL) Excedrin Migraine as needed blood sugar diagnostic (ONETOUCH VERIO TEST STRIPS) test strip OneTouch Verio test strips LABORATORY VALUES: WBC (k/uL) Date Value 03/25/2023 5.36 RBC (m/uL) Date Value 03/25/2023 4.33 Hemoglobin (g/dL) Date Value 03/25/2023 12.7 Hematocrit (%) Date Value 03/25/2023 37.7 MCV (fL) Date Value 03/25/2023 87.1 MCH (pg) Date Value 03/25/2023 29.3 MCHC (g/dL) Date Value 03/25/2023 33.7 RDW-CV (%) Date Value 03/25/2023 12.7 Platelet Count (k/uL) Date Value 03/25/2023 314 MPV (fL) Date Value 03/25/2023 9.7 Glucose (mg/dL) Date Value 03/25/2023 407 (H) BUN (mg/dL) Date Value 03/25/2023 16 Creatinine (mg/dL) Date Value 03/25/2023 0.76 Sodium (mmol/L) Date Value 03/25/2023 138 Potassium (mmol/L) Date Value 03/25/2023 4.3 Chloride (mmol/L) Date Value 03/25/2023 103 CO2 (mmol/L) Date Value 03/25/2023 25 Protein, Total (g/dL) Date Value 03/25/2023 6.8 Albumin (g/dL) Date Value 03/25/2023 4.3 Calcium, Total (mg/dL) Date Value 03/25/2023 9.2 Alkaline Phosphatase (U/L) Date Value 03/25/2023 124 (H) Bilirubin, Total (mg/dL) Date Value 03/25/2023 0.3 AST (U/L) Date Value 03/25/2023 45 (H) ALT (U/L) Date Value 03/25/2023 54 (H) DIAGNOSIS: (C50.411, Z17.0) Malignant neoplasm of upper-outer quadrant of right breast in female, estrogen receptor positive (HCC) (primary encounter diagnosis) (R73.9) Blood glucose elevated PAST MEDICAL HISTORY Diagnosis Date Anemia Arthritis Breast cancer (HCC) Diabetes (HCC) Diverticulitis of colon Salty Bolton virus infection Essential (primary) hypertension Fibrocystic breast GERD (gastroesophageal reflux disease) Hyperlipidemia Hypothyroidism IBS (irritable bowel syndrome) Malignant neoplasm of upper-outer quadrant of right breast in female, estrogen receptor positive (HCC) 02/21/2023 Migraines POTS (postural orthostatic tachycardia syndrome) Small bowel obstruction (HCC) Thyroid disease Thyroid nodule Vertigo Vitreous detachment of right eye PAST SURGICAL HISTORY Procedure Laterality Date ABDOMINAL SURGERY HX 2004 ADDITIONAL SPINAL FUSION 07/27/2004 APPENDECTOMY BX OF BREAST; INCISIONAL COLONOSCOPY HAND SURGERY HX HERNIA REPAIR HX 04/29/2021 Hiatal LASIK 2002 PAST SURGICAL HISTORY OF cervical fusion 2013, 2017 PAST SURGICAL HISTORY OF Right Foot PAST SURGICAL HISTORY OF Knee Arthroscopy w/ACL reconstruction x2 PAST SURGICAL HISTORY OF Lipoma resection PAST SURGICAL HISTORY OF Lumbar Discectomy PAST SURGICAL HISTORY OF Mass excision PAST SURGICAL HISTORY OF Small bowel resection SINUS SURGERY HX SMALL INTESTINE SURGERY HX TONSILLECTOMY HX UNLISTED STOMACH SURGERY Removal stomach polyps VAGINAL HYSTERECTOMY Social History Tobacco Use Smoking status: Former Passive exposure: Past Smokeless tobacco: Never Tobacco comments: quit smoking in 2014 Vaping Use Vaping Use: Never used Substance Use Topics Alcohol use: Not Currently Comment: rarely Drug use: Never FAMILY HISTORY Adopted: Yes Problem Relation Age of Onset Stroke Mother other (addisons) Maternal Grandmother Adair Elaine APRN.CNP Hematology and Oncology Services Provided at: [place], [place] CC: Dr. Cecelia Malhotra [address] [address] [address] Pankaj Osei [address] [facility] A [facility] [address] [address] Rosalba Reynoso I spent a total of 30 minutes on the date of the service which included preparing to see the patient, [id number] patient care, completing clinical documentation, obtaining and/or reviewing separately obtained history, performing a medically appropriate examination, counseling and educating the patient/family/caregiver, ordering medications, tests, or procedures, independently interpreting results (not separately reported), and communicating results to the patient/family/caregiver. documented in this encounter [facility] 03-25-2023 Nurse Note After last treatment she had a lot of bone pain, it has subsided. Divya Davies MA documented in this encounter [facility] 03-24-2023 Note [facility] 03-22-2023 Miscellaneous Notes 1st report of treatment-Benefit investigation complete. Spoke with patient Jyoti today. Patient is active with [facility]/[email or web address], LOC 80%, $2400 deductible has $0 remaining, $6400 OOP has $2211.25 remaining. Estimate shows patient financial responsibility is $2211.25 for each treatment in 2022 until oop max is reached. I explained to Jyoti about the [employer] copay program that possibly could help her with OOP expense on this drug. I told her I would watch her account and if balance left on this, I will contact her and let her know and enroll her at that time. They have a 90 day lookback period. Patient stated understanding. As well, Jyoti had questions regarding signing up for Part B for 2023 and how this could help her with her expenses. I told her I will mail her a reference guide on Medicare 2023 but overall if she does sign up for this, more than likely then, she would only be liable for the $240 Part B deductible for 2023. Her spouses insurance would stay primary as long as he is working and Medicare would be secondary for her. Mailing my contact information to her as well. Estimate Reference #[id number]. Cost facit survey completed. documented in this encounter [facility] 03-22-2023 Miscellaneous Notes CYCLE 1/DAY 1 POST TREATMENT CALL Today's date: March 22, 2023 Treatment Regimen: Carboplatin, Paclitaxel, & Pembrolizumab C1D1 Date: 03/17/23 Called patient to follow-up on symptom management. Spoke with patient. SYMPTOM ASSESSMENT Neuro: Headache : Migraine beginning yesterday. Improved after taking Relpax this morning and Visual Changes noted yesterday. Reports seeing black, kaplan, and green spots. No issues noted today. CV/Resp: Shortness of breath - notes that occasionally she'll feel SOB. States that this is normal for her. Notes that she has a habit of holding her breath. Denies cough or chest pain. GI/: Appetite: no changes in appetite, appetite fair, Fluid intake: Pt reports that she is drinking fluids all day. Has decreased her daily tea consumption, Constipation: yes, but was able to move her bowels after taking Senna-S. last BM yesterday. , and Bladder/Urinary Changes: None Integument: None - Notes only a small amount of hair loss. Activity: Patient reported decreased energy level Do you need to take naps? Yes; Do you wake up feeling rested? Yes Rates her fatigue 10/30 Pain: c/o generalized bone pain. Rates her pain -03/01. Describes as having Arthritis x 100. Has taken only 1 dose of tylenol. States that she does not like to take medications. Managing the pain with frequent position changes. Fever: No Chills: No Any new referrals needed? No Reinforced CURRENT treatment education based on current and anticipated symptoms. Discussed port/line care and patient verbalizes understanding: Yes - Denies problems at port site. Patient instructed to contact office or after hours Hematology/Oncology fellow for: temperature ? 100.4; questions or concerns. Patient verbalized understanding of when to seek medical attention and after hours number protocol. Asia Duong RN documented in this encounter [facility] 03-17-2023 Note [facility] 03-16-2023 Miscellaneous Notes Patient has an OTV appointment on 03/17. Please place lab orders. Rufina Clinton documented in this encounter [facility] 03-15-2023 Note HNO ID: [id number] Author: Yessy Serra RN Service: Interventional Radiology Author Type: Registered Nurse Type: Progress Notes Filed: 03/15/2023 9:20 AM Note Text: Radiology Service Progress Note DATE OF SERVICE: March 15, 2023 TIME: 9:19 AM PATIENT WEIGHT: 188LBS PATIENT IDENTITY VERIFICATION COMPLETED USING TWO (2) STANDARD IDENTIFIERS: Name and Date of confirmed by patient verbally. FALL SCREENING: Has the patient had 2 falls in the last year or 1 fall with injury or currently using an Ambulatory Assistive Device (Walker, Cane, Wheelchair, Crutches, etc.)? No PATIENT GENDER DATA: Female. status: : No status: NO. ALLERGIES: Reviewed and unchanged CONTRAST ALLERGY: No EXAM: MRI - CONTRAST TYPE: GROUP II IV SITE: Ambulatory: A peripheral IV was started in the Left forearm with a Angio cath: 20 gauge. Using ultrasound guidance IV SITE APPEARANCE: Clean,Dry and Intact SIGNATURE: Yessy Serra RN PATIENT NAME: Jyoti Enriquez DATE: March 15, 2023 TIME: 9:19 AM [facility] 03-15-2023 Note HNO ID: [id number] Author: Hemant Katz RT(R) Service: ? Author Type: Technologist Type: Progress Notes Filed: 03/15/2023 8:59 AM Note Text: Radiology Service Progress Note DATE OF SERVICE: March 15, 2023 TIME: 8:58 AM PATIENT IDENTITY VERIFICATION COMPLETED USING TWO (2) STANDARD IDENTIFIERS: Name and Date of confirmed by patient verbally. FALL SCREENING: Has the patient had 2 falls in the last year or 1 fall with injury or currently using an Ambulatory Assistive Device (Walker, Cane, Wheelchair, Crutches, etc.)? No PATIENT GENDER DATA: Female. status: : No status: NO. PATIENT RELEVANT IMPLANT DATA REVIEWED: Yes ALLERGIES: Reviewed and unchanged CONTRAST ALLERGY: NO. EXAM: MRI - CONTRAST TYPE: GROUP II PERIPHERAL IV DATA: iv started by radiology nursing staff RADIOLOGY DEPARTMENT: MR; Exam(s) Completed: Chest: Breast SIGNATURE: RT Mariia(R) PATIENT NAME: Jyoti Enriquez DATE: March 15, 2023 TIME: 8:58 AM [facility] 03-15-2023 History of Presen t illness Narrative Radiology Service Progress Note DATE OF SERVICE: March 15, 2023 TIME: 8:58 AM PATIENT IDENTITY VERIFICATION COMPLETED USING TWO (2) STANDARD IDENTIFIERS: Name and Date of confirmed by patient verbally. FALL SCREENING: Has the patient had 2 falls in the last year or 1 fall with injury or currently using an Ambulatory Assistive Device (Walker, Cane, Wheelchair, Crutches, etc.)? No PATIENT GENDER DATA: Female. status: : No status: NO. PATIENT RELEVANT IMPLANT DATA REVIEWED: Yes ALLERGIES: Reviewed and unchanged CONTRAST ALLERGY: NO. EXAM: MRI - CONTRAST TYPE: GROUP II PERIPHERAL IV DATA: iv started by radiology nursing staff RADIOLOGY DEPARTMENT: MR; Exam(s) Completed: Chest: Breast SIGNATURE: RT Mariia(R) PATIENT NAME: Jyoti Enriquez DATE: March 15, 2023 TIME: 8:58 AM Radiology Service Progress Note DATE OF SERVICE: March 15, 2023 TIME: 9:19 AM PATIENT WEIGHT: 188LBS PATIENT IDENTITY VERIFICATION COMPLETED USING TWO (2) STANDARD IDENTIFIERS: Name and Date of confirmed by patient verbally. FALL SCREENING: Has the patient had 2 falls in the last year or 1 fall with injury or currently using an Ambulatory Assistive Device (Walker, Cane, Wheelchair, Crutches, etc.)? No PATIENT GENDER DATA: Female. status: : No status: NO. ALLERGIES: Reviewed and unchanged CONTRAST ALLERGY: No EXAM: MRI - CONTRAST TYPE: GROUP II IV SITE: Ambulatory: A peripheral IV was started in the Left forearm with a Angio cath: 20 gauge. Using ultrasound guidance IV SITE APPEARANCE: Clean,Dry and Intact SIGNATURE: Yessy Serra RN PATIENT NAME: Jyoti Enriquez DATE: March 15, 2023 TIME: 9:19 AM documented in this encounter [facility] 03-11-2023 Miscellaneous Notes Call placed to pt. No answer. Results left on pt's personalized voicemail. Advised she call back w/ any questions or concerns. Asia Duong RN ----- Message from Paulo Singh MD sent at 03/10/2023 4:56 PM EDT ----- Hi Jyoti Hdz - your CT scans were negative for cancer - obviously the biopsies done today are still awaiting a result. documented in this encounter [facility] 03-10-2023 Note HNO ID: [id number] Author: Linh Heller RT(R) Service: Radiology Author Type: Technologist Type: Patient Education Filed: 03/10/2023 12:45 PM Note Text: Post procedure written instructions given to pt. [facility] 03-10-2023 Miscellaneous Notes Post procedure written instructions given to pt. documented in this encounter [facility] 03-10-2023 Note HNO ID: [id number] Author: Jazmin Leal RDMS Service: ? Author Type: Technologist Type: Progress Notes Filed: 03/10/2023 9:18 AM Note Text: Radiology Service Progress Note PATIENT NAME: Jyoti Enriquez DATE OF SERVICE: March 10, 2023 TIME: 9:18 AM PATIENT IDENTITY VERIFICATION COMPLETED USING TWO (2) IDENTIFIERS: Name and Date of confirmed by patient verbally and Name and Date of confirmed by identification band. FALL SCREENING: Has the patient had 2 falls in the last year or 1 fall with injury or currently using an Ambulatory Assistive Device (Walker, Cane, Wheelchair, Crutches, etc.)? No PATIENT GENDER DATA: Female. status: : No status: NO. PATIENT RELEVANT IMPLANT DATA REVIEWED: Not Applicable RADIOLOGY DEPARTMENT: Ultrasound PERIPHERAL IV DATA: Not applicable SIGNED BY: Jazmin Leal RDMS March 10, 2023 9:18 AM [facility] 03-10-2023 Note [facility] 03-10-2023 Note HNO ID: [id number] Author: Sapna Dooley (Tech)(His Service: ? Author Type: Inlayer Type: Progress Notes Filed: 03/10/2023 8:25 AM Note Text: Radiology Service Progress Note PATIENT NAME: Jyoti Enriquez DATE OF SERVICE: March 10, 2023 TIME: 8:25 AM PATIENT IDENTITY VERIFICATION COMPLETED USING TWO (2) IDENTIFIERS: Name and Date of confirmed by patient verbally. FALL SCREENING: Has the patient had 2 falls in the last year or 1 fall with injury or currently using an Ambulatory Assistive Device (Walker, Cane, Wheelchair, Crutches, etc.)? No PATIENT GENDER DATA: Female. status: : No status: NO. PATIENT RELEVANT IMPLANT DATA REVIEWED: Not Applicable RADIOLOGY DEPARTMENT: Mammography PERIPHERAL IV DATA: Not applicable SIGNED BY: Sapna Dooley RRT March 10, 2023 8:25 AM [facility] 03-10-2023 History of Presen t illness Narrative NEW BREAST CANCER - INITIAL SURGICAL VISIT SERVICE DATE: 03/09/[address] Paulo Singh for an opinion regarding the evaluation and treatment of breast cancer. My final impression and recommendations will be communicated back to the requesting physician by way of the shared medical record or letter via US mail. SUBJECTIVE: REASON FOR TODAY'S VISIT: Breast Cancer Evaluation HISTORY of PRESENT ILLNESS: Jyoti Enriquez is a 67 year old female who presents for an evaluation of a new diagnosis of right breast cancer diagnosed at outside facility. She recently had abnormal mammography of the right breast in February of this year . [place] [facility] means of [place]-guided core biopsy of Right breast. 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 Patient denies additional symptoms. HISTORY OF BREAST PROCEDURE(S): No prior history. PAST MEDICAL HISTORY: PAST MEDICAL HISTORY Diagnosis Date Anemia Arthritis Breast cancer (HCC) Diabetes (HCC) Diverticulitis of colon Salty Bolton virus infection Essential (primary) hypertension Fibrocystic breast GERD (gastroesophageal reflux disease) Hyperlipidemia Hypothyroidism IBS (irritable bowel syndrome) Malignant neoplasm of upper-outer quadrant of right breast in female, estrogen receptor positive (HCC) 02/21/2023 Migraines POTS (postural orthostatic tachycardia syndrome) Small bowel obstruction (HCC) Thyroid disease Thyroid nodule Vertigo Vitreous detachment of right eye PAST SURGICAL HISTORY: PAST SURGICAL HISTORY Procedure Laterality Date ABDOMINAL SURGERY HX 2004 ADDITIONAL SPINAL FUSION 07/27/2004 APPENDECTOMY BX OF BREAST; INCISIONAL COLONOSCOPY HAND SURGERY HX HERNIA REPAIR HX 04/29/2021 Hiatal LASIK 2002 PAST SURGICAL HISTORY OF cervical fusion 2013, 2017 PAST SURGICAL HISTORY OF Right Foot PAST SURGICAL HISTORY OF Knee Arthroscopy w/ACL reconstruction x2 PAST SURGICAL HISTORY OF Lipoma resection PAST SURGICAL HISTORY OF Lumbar Discectomy PAST SURGICAL HISTORY OF Mass excision PAST SURGICAL HISTORY OF Small bowel resection SINUS SURGERY HX SMALL INTESTINE SURGERY HX TONSILLECTOMY HX UNLISTED STOMACH SURGERY Removal stomach polyps VAGINAL HYSTERECTOMY OBSTETRIC RELATED HISTORY: Patient did breast feed Age at of First Child: 26 years of age. Age at Onset of Menses: 13 years of age. Age at Menopause: 42 years of age. P: 1 No LMP recorded (lmp unknown). Patient has had a hysterectomy. Exogenous Hormone Use: The Patient used Oral Contraceptives 10 years., Estrogen 10-12 years., Progesterone -Depo 1 x FAMILY HISTORY: FAMILY HISTORY Adopted: Yes Problem Relation Age of Onset Stroke Mother other (addisons) Maternal Grandmother The patient is not of Ashkenazic Ancestry SOCIAL HISTORY: Social History Tobacco Use Smoking status: Former Passive exposure: Past Smokeless tobacco: Never Tobacco comments: quit smoking in 2014 Vaping Use Vaping Use: Never used Substance Use Topics Alcohol use: Not Currently Comment: rarely Drug use: Never ACTIVE PROBLEM LIST Malignant Neoplasm of Upper-Outer Quadrant of Right Breast in Female, Estrogen Receptor Positive ([facility]) - 02/21/2023 Obesity, Class I, Bmi 30-34.9 - 04/30/2021 Nausea Without Vomiting - 04/30/2021 Comment: Post op nausea Hiatal Hernia - 04/29/2021 Essential (Primary) Hypertension - 04/27/2021 Migraine - 04/27/2021 Paraesophageal Hernia - 02/26/2021 Postural Orthostatic Tachycardia Syndrome - 10/24/2017 Comment: Added automatically from request for surgery [id number] Diabetes Type 2, Controlled ([facility]) - 02/14/2017 Mixed Hyperlipidemia - 07/05/2011 Hiatal Hernia With Gastroesophageal Reflux - 01/22/1996 CURRENT MEDICATIONS: ondansetron (ZOFRAN) 8 mg tablet Take 1 tablet by mouth every 8 hours as needed for nausea/vomiting. diazePAM (VALIUM) 2 mg tablet as needed. dicyclomine (BENTYL) 20 mg tablet q 8 HR. HYDROcodone-Acetaminophen 10-300 mg tab Take 1 tablet every 6 hours by oral route. hyoscyamine sublingual (LEVSIN SL) 0.125 mg DISSOLVE 1 TABLET UNDER THE TONGUE EVERY 6 HOURS NEEDED ibuprofen (MOTRIN) 600 mg tablet Take 400 mg by mouth at bedtime as needed. meclizine (ANTIVERT) 25 mg tab TAKE 1-2 TABLETS BY MOUTH FOUR TIMES A DAY NEEDED FOR DIZZINESS ondansetron orally disintegrating (ZOFRAN ODT) 4 mg disintegrating tablet pantoprazole DR (PROTONIX) 40 mg tablet Take 40 mg by mouth. scopolamine (TRANSDERM-SCOP) patch 1.5 mg/72 hr (delivers 1 mg over 3 days) APPLY ONE PATCH ON THE SKIN EVERY 3 DAYS. REMOVE OLD PATCH simvastatin (ZOCOR) 10 mg tablet TAKE ONE-HALF TABLET BY MOUTH EVERY NIGHT triamcinolone acetonide (KENALOG) 0.1 % cream Apply to affected area. eletriptan (RELPAX) 40 mg tablet TAKE 1 TABLET BY MOUTH AT ONSET OF MODERATE TO SEVERE MIGRAINE. MAY REPEAT DOSE IN 2 HOURS. MAX OF 2 DOSES IN 24 HOURS, 2 DAYS A WEEK levothyroxine (SYNTHROID) 50 mcg tablet aspirin/acetaminophen/caffeine (EXCEDRIN MIGRAINE ORAL) Excedrin Migraine as needed blood sugar diagnostic (ONETOUCH VERIO TEST STRIPS) test strip OneTouch Verio test strips ALLERGIES Allergen Reactions Hydrocodone Other: See Comments, GI Upset Headaches Oxycodone GI Upset Can take 1/2 tab, but full tab makes her sick 12 Hour Cold Capsule Intolerance Adhesive Other: See Comments Aller-Chlor Deconge* Unknown Chlorpheniramine-Ps* Unknown Jlm-Vrgqihjrg-Ysdrx* Itching Decongest Multi-Act* Other: See Comments Diazepam Other: See Comments sick-headache Diphenhydramine Intolerance Levofloxacin Intolerance Nalbuphine Rash Progesterone Other: See Comments, GI Upset Speeds up metabolism Weight gain and voice hoarse Promethazine Unknown Pseudoephedrine Other: See Comments Other Reaction(s): Hyperactive, severe stimulation Other Reaction(s): Intolerance ANY Decongestant-Hyperactive Pseudoephedrine-Dm-* Intolerance ANY Decongestant-Hyperactive Tpdcvsl-Szx-Vdq Red* Other: See Comments Other Reaction(s): Unknown Morphine Unknown, GI Upset, Vomiting, Other: See Comments Migraine Tramadol Itching, Unknown Tooth sensitivity Only tolerates low dose Only tolerates low dose REVIEW OF SYSTEMS: GENERAL: No weight loss, malaise or fevers HEENT: Negative for frequent or significant headaches, No changes in hearing or vision, no nose bleeds or other nasal problems RESPIRATORY: Negative for cough, hemoptysis, wheezing, COPD, dyspnea or shortness of breath CARDIOVASCULAR: Negative for chest pain, leg swelling, hypertension, CHF or palpitations GASTROINTESTINAL: No nausea, vomiting, or diarrhea GENITOURINARY: No history of dysuria, frequency or incontinence GYNECOLOGICAL: Negative for abnormal vaginal bleeding, abnormal vaginal discharge MUSCULOSKELETAL: Negative for joint pain or swelling, back pain or muscle pain INTEGUMENTARY:Denies Scleroderma or Lupus. Denies chronic skin conditions. PSYCHOLOGICAL: Denies history of psychiatric illness. Patient feels she is coping well with recent Breast Cancer diagnosis. Negative for sleep disturbance, mood disorder and recent psychosocial stressors. All other reviewed and negative other than HPI. OBJECTIVE: PHYSICAL EXAM: BP 134/63 Pulse 86 Temp 36.1 C (97 F) (Oral) Wt 85.3 kg (188 lb) LMP (LMP Unknown) SpO2 98% BMI 30.87 kg/m Body mass index is 30.87 kg/m . GENERAL:well-nourished, healthy, alert and oriented x 3, calm SKIN:warm, dry, skin color, texture, turgor normal HEAD/EYES:normocephalic, atraumatic, and anicteric NECK: supple, symmetrical, no thyromegaly RESPIRATORY: Respirations regular & non-labored ABDOMEN: flat MUSCULOSKELETAL: No observed limitations in range of motion of upper extremities. Patient ambulates independently BREASTS: The Patient was examined in the upright and supine positions. There are no significant fibrocystic changes. Patient's cup size is C. LEFT BREAST: The breast skin and nipple areolar complexes appear normal without retraction or lesions. There is no nipple discharge. There is no dominant mass or clinical abnormality noted in left breast. RIGHT BREAST: Fullness 11:00 LEFT REGIONAL LYMPH NODES: There is no concerning supraclavicular, infraclavicular or axillary lymphadenopathy RIGHT REGIONAL LYMPH NODES: There is no concerning supraclavicular, infraclavicular or axillary lymphadenopathy IMAGING TO DATE: Mammogram: Reviewed Ultrasound: Reviewed PATHOLOGY RESULTS: EXAMINATION: OUTSIDE IMAGING INTERPRETATION Indication for the Request / Reason for Overread: Previous report is inadequate. Service Requesting Consult: Breast surgery Any specific Issue(s) to be discussed: Interpretation of outside facility imaging. Grade 3 invasive ductal carcinoma in the upper outer right breast. Images Reviewed: Right breast mammogram and right breast ultrasound 01/17/2023. No additional breast imaging is available for comparison, to include no other prior studies or left breast imaging. Overread Date: 02/28/2023 7:02 AM Right breast mammogram 01/17/2023: 2-D/3-D CC and MLO views of the right breast. The breast tissue is heterogeneously dense. Triangular-shaped palpable marker placed at the palpable site in the approximate 10-11:00 anterior depth right breast, subjacent to which there is an indistinctly marginated mass measuring at least 1.4 cm and possibly up to 2.1 cm, to include on the MLO view where there is an adjacent mass or lobulated extension of the mass. Additional oval masses or asymmetries are seen throughout the right breast, predominantly in the lateral right breast. A biopsy marking clip is seen in the 3/4 o'clock middle depth right breast. Right breast ultrasound 01/17/2023: There is a hypoechoic mass with angular margins and internal blood flow in the 12:00 right breast 4.6 cm from the nipple. This is measured as 2 separate masses, however it appears to be one contiguous mass in total measuring approximately 1.6 x 1.5 x 1.3 cm. The axilla was not imaged. Biopsy images were not provided. Impression/recommendations: 1. 1.6 cm lobulated, irregular mass in the 12:00 right breast (favored to represent 1 lobulated/contiguous mass rather than 2 masses as measured at the outside facility), presumably site of biopsy-proven malignancy. No biopsy images or post-biopsy mammogram is available. Please correlate with what was biopsied and if there is any postbiopsy mammogram with clip placement. If there is no post biopsy mammogram with clip placement, confirmation of clip placement and clip location within the mass would be recommended with mammography. 2. The axilla was not imaged. Right axillary ultrasound would be recommended to evaluate the lymph nodes. 3. Additional oval masses/asymmetries predominantly in the lateral right breast seen mammographically. No prior mammograms are available to determine stability or change. These could be further evaluated with ultrasound, comparison with prior mammography, and/or MRI. 4. No current left breast mammogram was provided for review. Please review when the patient's last prior left breast mammogram was performed. If left breast mammography was not performed recently, this should be performed at this time. Supervisor Lead Burning: MARISSA Transcribe Date/Time: Feb 28 2023 7:02A Dictated by : NINOSKA CRUZ MD GENETIC TESTING: Discussed Assessment ASSESSMENT: CLINICAL STAGE RIGHT BREAST: T1,-T2N0,Mx. Stage 1A: (T1-T1mi, N0, M0) --Stage II PLAN: DIAGNOSIS: (C50.919) Triple negative breast cancer (HCC) (primary encounter diagnosis) I have examined Ms. Enriquez and reviewed the physical findings, imaging and pathology reports with her. A discussion was held with the patient regarding the local-regional, as well as systemic treatment of her Breast Cancer. We discussed role of breast conservation surgery or mastectomy, indications and risks of sentinel lymph node biopsy, possibility of axillary lymph node dissection, breast reconstruction, and role of systemic and radiation therapy. Ms. Enriquez needs further work-up at this time; diagnostic work up incomplete. IMAGING ORDERED TODAY: Breast MRI for baseline assesment for response to neoadjuvant chemotherapy. REFERRAL(S) for breast cancer treatment planning considerations: None All questions were answered and the patient had no further concerns at this time Ms. Enriquez was given our contact information if she has any further questions or concerns. Rosalba Reynoso MD documented in this encounter [facility] 03-10-2023 History of Presen t illness Narrative Radiology Service Progress Note PATIENT NAME: Jyoti Enriquez DATE OF SERVICE: March 10, 2023 TIME: 8:25 AM PATIENT IDENTITY VERIFICATION COMPLETED USING TWO (2) IDENTIFIERS: Name and Date of confirmed by patient verbally. FALL SCREENING: Has the patient had 2 falls in the last year or 1 fall with injury or currently using an Ambulatory Assistive Device (Walker, Cane, Wheelchair, Crutches, etc.)? No PATIENT GENDER DATA: Female. status: : No status: NO. PATIENT RELEVANT IMPLANT DATA REVIEWED: Not Applicable RADIOLOGY DEPARTMENT: Mammography PERIPHERAL IV DATA: Not applicable SIGNED BY: Sapna Dooley RRT March 10, 2023 8:25 AM documented in this encounter [facility] 03-09-2023 Note [facility] 03-09-2023 Note [facility] 03-09-2023 Note [facility] 03-09-2023 Note [facility] 03-09-2023 Note [facility] 03-09-2023 History of Presen t illness Narrative Summary: IRB [id number] Case [id number] Presentation-Declined CASE 6120 20-90 Genetic and inflammatory biomarkers in neuropathic pain secondary to chemotherapy (Genie-B) -a study in patients undergoing treatment for breast cancer. Met with Patient today for presentation of Case 6120. Vital signs, allergies and concomitant medications reviewed. Pertinent denials covered with patient. 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 Patient meets all Criteria for Study Participation: No, Patient has history of pre existing neuropathy. Patient was approached for trial [facility]: Case 6120/IRB: #[id number] but declined participation due to pre existing neuropathy. Patient does not wish to be approached for study in the future. Sugar Calixto, MSN, RN Clinical Research Nurse 12:30 PM March 09, 2023 documented in this encounter [facility] 03-08-2023 Miscellaneous Notes Slides have been reviewed- in EPIC Slides have been received and are in process Sent for outside slides Bx done at [facility]- pathology goes thru [facility] Release faxed to [phone] and emailed to [email or web address] Overread submitted for right breast-additional imaging is not available MRI scheduled for 03/15 documented in this encounter [facility] 03-04-2023 Miscellaneous Notes Signed. Adair Elaine APRN.TULIO Script for Zofran pended. Did not pend Compazine due to pt's phenergan allergy. Asia Duong RN documented in this encounter [facility] 03-03-2023 Miscellaneous Notes Pt called to inform that her Port was placed today. No questions or concerns Elva Hayden RN documented in this encounter [facility] 03-03-2023 History and physical note Note Date/Time March 03, 2023 11:20am [facility] [address] [place] [address] Vascular Surgery H&P Signed Patient: Jyoti Enriquez MR#: [id number] : 1955 Acct:[id number] Age/Sex: 67 / F Adm Date: 3 Loc: [place] Room: Type: [facility] Attending Dr: Candido Mary MD Copies to: MD Candido Alves MD~ Date of Service: 03/03/2023 HPI History of Present Illness Chief complaint: Breast cancer with need for chemotherapy access HPI: Ms. Enriquez is a 67 year old female with a right-sided breast cancer. She has notyet started chemotherapy which she needs to begin this month. I was asked to place an Auiklz-d-Qlgx for her. She has not had a prior port. Review of Systems Review of Systems All other systems reviewed & are negative unless noted below or in HPI [facility] Medical History (Updated 03/03/23 @ 11:19 by Candido Mary MD) Breast cancer, right Cervical vertebral fusion x2 GERD (gastroesophageal reflux disease) Hiatal hernia surgery 2020 Hyperlipidemia Hyperthyroidism SBO (small bowel obstruction) x2 Surgical History (Updated 03/03/23 @ 09:32 by Darcy Borden LPN) H/O spinal fusion H/O: hysterectomy History of foot surgery bone spur Hx of appendectomy Family History (Updated 03/03/23 @ 09:33 by Darcy Borden LPN) Mother Stroke Father CAD (coronary artery disease) Social History Smoking Status: Former smoker Substance Use Type: None Meds Medications and Allergies Allergies morphine Allergy (Verified 03/03/23 09:00) Migraine Home Medications levothyroxine 50 mcg tablet 0.05 mcg PO DAILY 03/03/23 [History Confirmed 03/03/23] meclizine 25 mg tablet 25 mg PO DAILY PRN Vertigo 03/03/23 [History Confirmed 03/03/23] pantoprazole 40 mg tablet,delayed release 40 mg PO DAILY 03/03/23 [History Confirmed 03/03/23] simvastatin 10 mg tablet 5 mg PO DAILY 03/03/23 [History Confirmed 03/03/23] Exam Physical Exam Vital Signs: Temp Pulse Resp BP Pulse Ox O2 Del Method 98.3 F 76 16 129/71 96 Room Air 03/03/23 08:53 03/03/23 08:53 03/03/23 08:53 03/03/23 08:53 03/03/23 08:53 03/03/23 08:53 Narrative: Pleasant female in no acute distress who interacts appropriate with examiner. Her was present during the interview. Chest wall shows no prior evidence of port placement Results Labs 03/03/23 09:15 03/03/23 09:15 Labs: Laboratory Results - last 24 hr 03/03/23 03/03/23 09:15 09:15 Corrected WBC 7.0 Uncorrected WBC Count 7.0 RBC 4.45 Hgb 13.2 Hct 38.1 MCV 85.7 MCH 29.7 MCHC 34.6 RDW 13.6 Plt Count 265 MPV 8.2 Neut % (Auto) 58.8 Lymph % (Auto) 31.8 [place] % (Auto) 7.1 Eos % (Auto) 1.5 Baso % (Auto) 0.8 Nucleat RBC Rel Count 0.1 Neut # (Auto) 4.1 Lymph # (Auto) 2.2 [place] # (Auto) 0.5 Eos # (Auto) 0.1 Baso # (Auto) 0.1 PHA Creatinine Clear 74.58 Sodium 137 Potassium 4.1 Chloride 103 Carbon Dioxide 25.9 Anion Gap 12.2 BUN 15 Creatinine 0.81 Est GFR (CKD-EPI) > 60.0 Glucose 244 H Calcium 9.4 A&P - Vascular (1) Breast cancer, right: Plan: I showed the patient an Qhukuj-w-Kgne and discussed with her the nature of the procedure. I will be placed on her left side since her breast primary is on theright. Risks were discussed including failure the port to function, infection, and thrombophlebitis. She understands and agrees to proceed. She does not havea date to begin her chemotherapy at this time so the port will not be accessed today. Code(s): C50.911 - Malignant neoplasm of unspecified site of right female breast Status: Acute Documented By: Candido Mary MD 03/03/23 111 8 Signed By: <Electronically signed by MD Candido Mary> 03/03/23 1120 [facility] Work Phone: [phone]) 323-234710-11-2023 Miscellaneous Notes* Telephone Encounter - Dana Blanco - 03/02/2023 9:37 AM EDT Called [facility] office. Patient is scheduled for Port Placement with Dr Mary on 03/03 @ 11:45. Dana Gonzalez * Telephone Encounter - Dana Blanco - 02/28/2023 9:52 AM EDT Called [facility] office. Their district sales coordinator is working on this referral, will be calling patient soon, they are looking at trying to get patient scheduled sometime this week. Dana Gonzalez * Telephone Encounter - Dana Blanco - 02/23/2023 10:26 AM EDT Called [facility] office. They have received this referral and will send to [facility] to get patientscheduled. Dana Gonzalez * Telephone Encounter - Debby Villalobos - 02/22/2023 3:28 PM EDT Records faxed to [facility]. * Telephone Encounter - Mariela Robles - 02/22/2023 8:45 AM EDT Please refer to [facility] for port placement. They will call the patient to schedule after review of records. Zoe Heath fax records [facility], Please follow up on this appt. Thank you [facility] Miscellaneous Notes* Telephone Encounter - Rosalba Reynoso MD - 02/28/2023 4:24 PM EDT Orders placed. Rosalba Reynoso MD * Telephone Encounter - Zoe Cruz - 02/28/2023 11:31 AM EDT Hello, When you are able to, can you put in an order for a diagnostic mammogram for Jyoti rebollar? Thank you. documented [facility] Miscellaneous Notes* Telephone Encounter - Jennifer Jerez RN - 02/28/2023 3:39 PM EDT Patient calling back to reschedule her appointments for 03/03 as port is being placed that day Rescheduled imaging and consult with Dr Reynoso for 03/10 * Telephone Encounter - Jennifer Jerez RN - 02/28/2023 9:43 AM EDT Called patient to add to same day imaging at 8:00 a[address] and then see Dr Reynoso at 11:00. Patient is frustrated that she may have to sit for hours between the imaging and consult appt. Advised patient that there are no other imaging appointments prior to seeing Dr Reynoso so her consult would need to be delayed if she wanted her imaging a separate day. Patient asking why she needs additional imaging- advised that I am still trying to get prior mammograms including her left mammogram that was done in 07/2022 along with prior mammograms in 2021 for comparison and a post-biopsy clip film that were not sent- per the imaging overread. I left a voicemail today at [facility] to have the missing imaging pushed electronically Advised patient that at minimum we would still need a right axillary US - she is agreeable to imaging at 8:00 same day documented in [facility] Miscellaneous Notes* Telephone Encounter - Mariela Robles - 02/23/2023 9:[address] Paulo Singh is referring Jyoti Hdz for general surgery. Please see order for scheduling. Thank you. documented in this encounterProm[facility]10-[facility]23 Miscellaneous Notes* Telephone Encounter - Jennifer Jerez RN - 02/22/2023 1:41 PM EDT Received message regarding appointment for patient- she would like to be seen sooner due to she is afraid of not feeling well once she starts tx. Appointment changed to 03/03 at 11:[address] Reynoso * Telephone Encounter - Ledy Smith - 02/22/2023 10:59 AM EDT Patient scheduled * Telephone Encounter - Mariela Robles - 02/22/2023 8:[address] Paulo Singh is referring Jyoti Hdz to Dr Reynoso / John for consult regarding breast cancer. Please see the order for scheduling. Also there is an order for an MRI of the Breast. Thank you for your help. documented in this encounterPromedica Bay Park Hospital10-02-2023 NoteSelect Medical [facility]23 NoteChief Complaint consultation for abdominal pain HPI Staff 66 year old female presents on consultation from Dr. Osei for abdominal pain. Reports epigastric pain that happens several times daily and will last for several seconds. Describes the pain as achy. Reports this is located under previous surgical incision. Was prescribed Protonix 08/20, this was initially helpful but no longer effective. Last colonoscopy completed 03/2016 for complaint of abdominal pain was normal. EGD completed 02/2016 with GERD, gastric polyps and hiatal hernia. History of smallbowel resection 05/2009 for adhesions. Hiatal hernia repair 04/2021. History of Present Illness 66 yo female with h/o htn, hyperlipidemia, hypothyroidism, POTS, lumbar spondylosis with chronic back pain; patient reports several week h/o intermittent, transient epigastric pain in area of laparoscopic port site; ache, occasionally sharp, lasts seconds and spontaneously resolves; occurs throughout the day; no change in bms or blood in stools, no melena, no GERD symptoms or dysphagia; was taking Ibuprofen at bedtime prior to this starting for her back pain, now discontinued it; patient had LSNissen fundoplication 03/2021 at [facility], reports that she had EGD at [facility] 01/2022 that was wnl, patient was told then that they would repeat this in 6 months; was getting endoluminal ablation of Day'sesophagus prior to Zain; abdominal operations also significant for excision Meckel's diverticulum, appendectomy; exp lap for sbo x2, last in 2009 with small bowel resection; TYSON with bso; no asa orNSAID use; no tobacco use; no fmhx of GI malignancy or IBD. Review of Systems PHQ Score Initial Depression Screen Score: 0 ROS - Provider Constitutional: no fever, no sweats, no weight loss. Eyes: no glasses, no blurred vision, no visual loss. ENMT: no dentures, no hoarseness, no swallowing difficulties, no hearing loss, no ear infection(s),no nose bleeds. Cardiovascular: normal blood pressure, no chest pain, regular heartbeat, no heart murmur. Respiratory: no shortness of breath, no cough, no asthma, no wheezing. Gastrointestinal: no nausea, no vomiting, no diarrhea, no constipation, no blood in stool, no change in bowel habits, no abdominal pain, no hepatitis. Genitourinary: no kidney stones, no urine infection, no dysuria. Musculoskeletal: no pain, no weakness. Skin: no changing moles, no rash, no skin lumps. Neurologic: no seizures, no epilepsy, no headache. Psychiatric: no emotional or psychiatric problem. Heme/Lymph: no bleeding problems, no anemia, no blood clots, no transfusions. Allergy/Immunologic: no swollen lymph nodes/glands, no IV drug abuse. Other: Additional ROS info: Except as noted in the above Review of Systems and in the History of Present Illness, all other systems have been reviewed and are negative or noncontributory. Physical Exam Vitals & Measurements HR: 80(Peripheral) RR: 16 BP: 128/90 HT: 66 in HT: 167.6 cm WT: 89.1 kg WT: 196.02 lb BMI: 31.72 HEENT: normal conjunctiva, sclera clear, no scleral icterus, EOM intact, PERRLA, oral mucosa moist without lesions. Neck: trachea midline, no mass, symmetric, no thyromegaly or nodules, no adenopathy Respiratory: lungs CTA, respirations non labored. Cardiovascular: regular rate and rhythm, no murmur, no pedal edema or varicosities. Gastrointestinal: obese, soft, non distended, mild tenderness, epigastric port site scar, no herniapalpable, no skin changes, small scar nodule, patient reports present in past;no masses, no palpable hernias, diastasis recti no, no hepatosplenomegaly; normal bs Lymphatic: no cervical adenopathy, no supraclavicular adenopathy Musculoskeletal: normal gait, digits and nails without infection, nodes, cyanosis, clubbing. Skin: no rashes, no lesions, no ulcers, no subcutaneous nodules, induration. Psychiatric/Neuro: oriented to time, place, person, judgement normal, affect appropriate for age, insight intact, no focal deficits. Tests: review of old records completed, Assessment/Plan 1. Epigastric pain (R10.13: Epigastric pain) appears related to scar tissue at laparoscopic trochar site, no evidence of hernia; recommend f/u with [facility] for evaluation of pain since related to Zain fundoplication, and for possible EGD due to know h/o Day's esophagus; call with problems/quesitons. Follow-up No qualifying data available Problem List/Past Medical History Ongoing Autonomic dysfunction Day's esophagus BMI 31.0-31.9,adult Cervical radiculopathy Diabetes Diverticulitis Eczema Epigastric pain Fatty liver Fibrocystic breast Gastric polyp GERD (gastroesophageal reflux disease) Herniated cervical disc Hiatal hernia History of colonic polyps HTN (hypertension) Hypercholesterolemia Hyperhidrosis IBS (irritable bowel syndrome) Iron deficiency anemia Lumbar spondylosis Meckel diverticulum Migraine Osteoporosis POTS (postural orthostatic tachycardia syndrome) Rosac (more content not included)...[facility] MemorialComment on above: Result Comment: Electronically Signed By: FRENCH BROOKS, Jt Schaefer.sandee\Date and Time Signed: 09/07/22 19:52 [id number] Miscellaneous Notes* Telephone Encounter - Geneva Palacio RN - 08/19/2022 11:[address] Calvillo Letter sent out states 2 years. 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 Patient states she was told be you repeat in 6 months. Please advise. SARAI Philip, RN Stockroom Attendant [facility] documented in this encounterPromedica Bay Park Hospital02-07-2023 Miscellaneous Notes* Telephone Encounter - Daniela Trae [place] - 06/29/2022 2:42 PM EST [facility] team confirmed that there is no longer specialty Botox for this patient in their inventory (delivery confirmation had been received on 01/08/22), so appropriate Botox must have been used for the visit. Email sent to resource management specialist. * [facility] - [facility] 04/21/[facility]22 10:34 AM EST Sent email to [facility] team to clarify their Botox inventory. * Telephone Encounter - Rina Shah Adm - 04/20/2022 12:34 PM EST Rec'd call from Marketing Research Coordinator, Zohra, from [employer] about this patient's Botox. Patient received a bill from [facility] for the Botox she received on 01/08. Zohra wanted a message sent to let us know that the patient receives her Botox from [facility] and not the clinic. She said that the patient receives a bill each time and it is becoming a hassle and she is considering stopping the Botox treatments. Zohra from [employer] wanted to try to help patient so that this doesn't happen in the future. Zohra wanted to talk to someone about this. She talked to Billing and they are looking into this, but it can take up to 20 business days. Zohra from [employer]: [phone] (secure phone line) documented in this encounterPromedica Bay Park Hospital10-10-2022 NoteComplaint: The patient is a 66-year-old female who we follow for postural orthostatic tachycardia. Present illness: The patient has a longstanding history of postural tachycardia syndrome as well as migraine headaches and esophageal dysmotility problems.She has a number of esophageal vascular problems and is undergone several ablative procedures of the esophagus. POTS chaudhry we are only treating her with scopolamine transdermal.This is been reasonably stable Although she continues to have occasional flareups. Physical exam: Noncontributory Assessment: Postural orthostatic tachycardia syndrome. We have a long discussion about what her future prognosis is and ways such as physical conditioning that she can maintain herself on as few medicines as possible. Plan: Continue present managementTr[facility]09-27-2022 Nurse Note* Asia Mabry RN - 02/16/2022 11:16 AM EDT AMBULATORY PATIENT EDUCATION NOTE TOPIC: GI PROCEDURES: Esophagogastroduodenoscopy(EGD) for control of bleeding,dilation(any means),imaging,tube placement READINESS TO LEARN INSTRUCTION PROVIDED TO: Patient, readness to learn accessed prior to procedure COGNITIVE ABILITY: Alert and oriented PTED MOTIVATION TO LEARN: Eager Interested FAMILY SUPPORT: Moderate - Family present but overwhelmed IPATIENT LEARNS BEST BY: Individual Instruction Verbal Instruction FACTORS AFFECTING LEARNING: None PHYSICAL LIMITATIONS AFFECTING LEARNING: None LEARNING RESPONSE METHOD OF INSTRUCTION: Individual instruction PATIENT / FAMILY RESPONSE: Verbalizes understanding of: WORSENING CONDITION- Signs and symptoms of aworsening condition that warrant a call to the physician FOLLOW-UP PLAN: Patient instructed to call with any further issues SUPPLEMENTAL MATERIAL: Procedure Discharge Instructions REFERRAL (RECOMMENDATION): None * Jacqueline Robison LPN - 02/16/2022 9:16 AM EDT PRE OP LEARNING ASSESSMENT PROCEDURE/SURGERY: GI PROCEDURES: EGD READINESS TO LEARN COGNITIVE ABILITY: Alert and oriented MOTIVATION TO LEARN: Eager FAMILY SUPPORT: High - Very involved in pt care PATIENT LEARNS BEST BY: Individual Instruction FACTORS AFFECTING LEARNING: None PHYSICAL LIMITATIONS AFFECTING LEARNING: None Electronically Signed By: Jacqueline Robsion LPN In Department: GASTROENTEROLOGY documented in this encounterCleveland [id number] Miscellaneous Notes* Telephone Encounter - Lili Haley RN - 02/08/2022 2:59 PM EDT GI Pre-Procedure Spoke with patient: Yes Confirmed date scheduled and patient report time: Yes Procedure Planned:Esophagogastroduodenoscopy(EGD) with or without biopies based on clinical findings, removal of polyps or lesions Is the patient on blood thinners?no Procedure Instructions given to patient: Yes, and they verbalized their understanding of instructions given Patient instructed to take prescribed preparation prior to procedure:Yes, and they verbalized theirunderstanding of instructions given Patient instructed to have family/friend present for procedure transport home:Patient/patient circulation sales representative was told that if they do not have a responsible adult accompany them to their procedure; and remain in the endoscopy area until they are discharged; that their procedure cannot be done with s edation or anesthesia and may be cancelled. and They verbalized their understanding and agree to have a responsible adult accompany the patient to their procedure and remain in the endoscopy area. Any barriers to Patient learning: Patient/Patient Electrical Project Engineer responded appropriately on phone. Type of instruction given: Verbal by telephone contact. Lili Haley RN documented in this encounterPromedica Bay Park Hospital09-06-2022 Miscellaneous Notes* Telephone Encounter - Abiel Muhammad PA-C - 01/26/2022 11:36 AM EDT The following approved medication requests have been transmitted electronically. Requested Prescriptions Signed Prescriptions Disp Refills eletriptan (RELPAX) 40 mg tablet 24 tablet 1 Sig: TAKE 1 TABLET BY MOUTH AT ONSET OF MODERATE TO SEVERE MIGRAINE. MAY REPEAT DOSE IN 2 HOURS. MAX OF 2 DOSES IN 24 HOURS, 2 DAYS A WEEK Authorizing Provider: ABIEL MUHAMMAD PA-C January 26, 2022 11:36 AM * Telephone Encounter - Ninoska Bass - 01/26/2022 8:22 AM EDT Physician: Jb Call from pharmacy requesting refill. Please E-Scribe Last OV: 01/08/2022 with Jb Future OV: 04/21/2022 with Jb Requested Prescriptions Pending Prescriptions Disp Refills eletriptan (RELPAX) 40 mg tablet [Pharmacy Med Name: ELETRIPTAN 40MG TABLETS] 24 tablet Sig: TAKE 1 TABLET BY MOUTH AT ONSET OF MODERATE TO SEVERE MIGRAINE. MAY REPEAT DOSE IN 2 HOURS. MAX OF 2 DOSES IN 24 HOURS, 2 DAYS A WEEK Pharmacy Name: [facility] Ninoska Bass documented in this encounterPromedica Bay Park Hospital09-01-2022 History of Present illness Narrative* Bobby Garrett MD - 01/21/2022 4:15 PM EDT [facility] - HISTORY AND PHYSICAL Chief Complaint: Follow up case s/p Robotic paraesophageal repair with partial fundoplication(05/12), mild reflux symptoms since 2 months HPI: Jyoti Enriquez is a 65 year old female PMHx short segment Day's esophagus, GERD, Chronic migraine without aura, intractable,without status migrainosus,arthritis, HTN, hyperlipidemia, and POTS (postural orthostatic tachycardia syndrome) seen for follow up s/p Robotic PEH repair with partial fundoplication on 04/29/[address]Lucas Garrett. She has 4 esophageal ablations for her Day's esophagus and is due for her last one in January. Patient got COVID in and developed a terrible cough, she reports that after developing the cough she started having reflux and heartburn symptoms about 3 nights a week.She sometimes feels nauseous. She is otherwise doing well and is currently not taking omeprazole. No dysphagia, no odynophagia Appetite good, weight stable. Diarrhea baseline,has had bouts of it all life Former smoker ETOH social very occasional Carbonated beverages occasional No fever, chills. No CP, SOB, dizziness. Relevant previous operations include: -Robotic paraesophageal hernia repair with partial fundoplication on 04/29/21 -hysterectomy (1997) -appendectomy (2000) -incisional hernia repairs PAST MEDICAL HISTORY Diagnosis Date Arthritis Diabetes (HCC) Essential (primary) hypertension 04/27/2021 Migraines POTS (postural orthostatic tachycardia syndrome) PAST SURGICAL HISTORY Procedure Laterality Date ABDOMINAL SURGERY HX 2004 ADDITIONAL SPINAL FUSION 07/27/2004 PAST SURGICAL HISTORY OF cervical fusion 2013, 2018 TONSILLECTOMY HX VAGINAL HYSTERECTOMY Social History Tobacco Use Smoking status: Former Smokeless tobacco: Never Tobacco comments: quit smoking in 2014 Vaping Use Vaping Use: Never used Substance Use Topics Alcohol use: Yes Comment: rarely Drug use: Never Additional social history not relevant to the patient's HPI FAMILY HISTORY Adopted: Yes Problem Relation Age of Onset other (addisons) Maternal Grandmother Additional family history not relevant to the patient's HPI ALLERGIES Allergen Reactions Hydrocodone Other: See Comments, GI Upset Headaches Oxycodone GI Upset Can take 1/2 tab, but full tab makes her sick 12 Hour Cold Capsule Intolerance Rxm-Ewldccckw-Smxkf* Itching Diazepam Other: See Comments sick-headache Diphenhydramine Intolerance Levofloxacin Intolerance Nalbuphine Rash Progesterone Other: See Comments, GI Upset Speeds up metabolism Weight gain and voice hoarse Pseudoephedrine-Dm-* Intolerance ANY Decongestant-Hyperactive Morphine Unknown, GI Upset, Vomiting, Other: See Comments Migraine Tramadol Itching, Unknown Tooth sensitivity Only tolerates low dose Only tolerates low dose Current Outpatient Medications Medication Sig Dispense Refill fremanezumab-vfrm (AJOVY AUTOINJECTOR) 225 mg/1.5 mL auto-injector Inject 1.5 mL subcutaneously once every month. Do not shake. 1 Pen 3 eletriptan (RELPAX) 40 mg tablet Take at onset of a moderate to severe migraine, if not completely gone in 2 hours you may repeat the dose x 1. Maximum of 2 doses in 24 hours, Maximum use of 2 days each week. 27 tablet 0 onabotulinum toxin type A (BOTOX) 100 unit solr Inject 200 Units intramuscularly one time only for 1 dose. Follow the PREEMPT protocol, administer 200 units every 3 months, indefinitely. 2 Each 0 levothyroxine (SYNTHROID) 50 mcg tablet aspirin/acetaminophen/caffeine (EXCEDRIN MIGRAINE ORAL) Excedrin Migraine as needed blood sugar diagnostic (ONETOUCH VERIO TEST STRIPS) test strip OneTouch Verio test strips evolocumab (REPATHA SURECLICK) 140 mg/mL pen injector Repatha SureClick 140 mg/mL subcutaneous pen injector Current Facility-Administered Medications Medication Dose Route Frequency Provider Last Rate Last Admin onabotulinum toxin type A 200 Units injection (BOTOX) 200 Units OTHER q 3 MONTHS Wanda Acosta APRN.DISPENSING AND MEASURING OPTICIAN 200 Units at 11/20/20 1548 REVIEW OF SYSTEMS The remainder of the 12 review of systems is negative other than what was mentioned in the HPI and above. BP 136/72 Pulse 109 Temp 37.2 C (99 F) (Oral) Ht 167.6 cm (5' 6 ) Wt 81.6 kg (180 lb) LMP(LMP Unknown) BMI 29.05 kg/m Physical findings of this patient are as follows (COMPLETE 10 INCLUDING HEART AND LUNG EXAM OR CHOOSE NORMAL EXAM IF APPROPRIATE): Physical Exam Physical Exam Constitutional: The patient is well-developed, well-nourished, and in no distress. Head: Normocephalic and atraumatic. Eyes: Pupils are equal, round, and reactive to light. EOM are normal. Neck: Normal range of motion. Neck supple. Cardiovascular: Regular rhythm and normal heart sounds. Pulmonary/Chest: Effort normal and breath sounds normal. Abdominal: Soft. Bowel sounds are normal. Musculoskeletal: Normal range of motion. Neurological: He is alert. GCS score is 15. Skin: Skin is warm and dry. Psychiatric: Affect and judgment normal. Relevant Hernia Findings -none LABS: No results found for: HBA1C IMAGING - Reviewed with staff PROCEDURE: XR GI UPPER AIR KUB DUAL CONTRAST, XR CINERADIOGRAPHY COMPARISON: None. FINDINGS: ESOPHAGUS:Mild gastroesophageal reflux. No abnormal dilation, stricture, or mucosal irregularity. Gastroesophageal valve is functional with sometimes delayed emptying of esophageal contents into the stomach, followed by moderate opening and emptying of esophagus.. STOMACH: No obstruction, mass, or ulceration. Normal motility. DUODENUM:No ulceration or diverticulum. OTHER: Negative. IMPRESSION: 1. Mild gastroesophageal reflux and minimal delay of esophageal emptying. 2. No hiatal hernia. Electronically authenticated by: DANIEL FINNEY Date: 2022-01-20 09:38 Assessment: Jyoti Enriquez is a 66 year old female PMHx short segment Day's esophagus, GERD, Chronic migraine without aura, intractable,without status migrainosus,arthritis, HTN, hyperlipidemia, and POTS (postural orthostatic tachycardia syndrome) seen for follow up s/p Robotic PEH repair with partial fundoplication on 04/29/[address]Lucas Garrett. She has 4 esophageal ablations for her Day's esophagus and is due for her last one in January. Patient got COVID in and developed a terrible cough, she reports that after developing the cough she started having reflux and heartburn symptoms about 3 nights a week.She is otherwise doing well and is currently not taking omeprazole. Plan: -Cont with endoscopic surveillance - Would recommend PPI therapy based off endoscopy results, minimal clinical GERD -Follow up in 1 year or prn. documented in this encounterPromedica Bay Park Hospital09-01-2022 Nurse Note* Yvonne Galvan Ma - 01/21/2022 3:33 PM EDT What is the reason for your visit today? est Who is your referring physician? Are you having poor oral intake? NO Have you had unintentional weight loss of 15 lbs/7 Kg in the last 3-6 months? NO Bowels: regular Wound: clean & dry Temperature: No Drains: No documented in this encounterPromedica Bay Park Hospital08-31-2022 NotePROCEDURE: XR GI UPPER AIR KUB DUAL CONTRAST, XR CINERADIOGRAPHY COMPARISON: None. HISTORY: History of disorder of digestive system ; heartburn, prior hiatal hernia repair TECHNIQUE: An air contrast upper gastrointestinal series was performed in the usual manner. Standard level fluoroscopic mode of operation utilized. 2 minutes, 5 seconds; 12 images FINDINGS: ESOPHAGUS:Mild gastroesophageal reflux. No abnormal dilation, stricture, or mucosal irregularity. Gastroesophageal valve is functional with sometimes delayed emptying of esophageal contents into the stomach, followed by moderate opening and emptying of esophagus.. STOMACH: No obstruction, mass, or ulceration. Normal motility. DUODENUM:No ulceration or diverticulum. OTHER: Negative. IMPRESSION: 1. Mild gastroesophageal reflux and minimal delay of esophageal emptying. 2. No hiatal hernia. Electronically authenticated by: DANIEL FINNEY Date: 2022-01-20 09:38[facility]08-31-[facility]22 NotePROCEDURE: XR GI UPPER AIR KUB DUAL CONTRAST, XR CINERADIOGRAPHY COMPARISON: None. HISTORY: History of disorder of digestive system ; heartburn, prior hiatal hernia repair TECHNIQUE: An air contrast upper gastrointestinal series was performed in the usual manner. Standard level fluoroscopic mode of operation utilized. 2 minutes, 5 seconds; 12 images FINDINGS: ESOPHAGUS:Mild gastroesophageal reflux. No abnormal dilation, stricture, or mucosal irregularity. Gastroesophageal valve is functional with sometimes delayed emptying of esophageal contents into the stomach, followed by moderate opening and emptying of esophagus.. STOMACH: No obstruction, mass, or ulceration. Normal motility. DUODENUM:No ulceration or diverticulum. OTHER: Negative. IMPRESSION: 1. Mild gastroesophageal reflux and minimal delay of esophageal emptying. 2. No hiatal hernia. Electronically authenticated by: DANIEL FINNEY Date: 2022-01-20 09:38[facility]08-24-2022 Miscellaneous Notes* Telephone Encounter - Daxa Hercules Abram - 01/13/2022 11:50 AM EDT Images from the original note were not included. Denied 01/11/2022 12:06 PM Appeal supported: Yes Note from payer: This request has not been approved. Based on the information submitted for review,you did not meet our guideline rules for the requested drug. In order for your request to be approved, your provider would need to show that you have met the guideline rules below. The details below are written in medical language. If you have questions, please contact your provider. In some cases,the requested medication or alternatives offered may have additional approval requirements. For a diagnosis of chronic migraines (15 or more headache days per month), our guideline named FREMANEZUMAB-VFRM (Ajovy) requires the following rule be met for approval:1. You have tried TWO of the following: Aimovig, Emgality, Nurtec ODT.Your doctor told us you have a diagnosis of chronic migraines. A trial of Nurtec ODT is noted, but we do not have information that you used Nurtec for the preventive (to prevent) treatment of migraines. Additionally, we do not have information that you have also tried Aimovig or Emgality as described above. This is why your request is denied. Please work with your doctor to use a different medication or get us more information if it will allow us to approve this request. A written notification letter will follow with additional details. Payer: [employer] [phone] Notes Time User Attachment Attachment received from payer. 01/11/2022 12:06 PM [facility], Rx Priorauth In Document Daxa Valverde documented in this encounterPromedica Bay Park Hospital08-19-2022 Miscellaneous Notes* Telephone Encounter - Elsa Ortega RN - 01/08/2022 3:30 PM EDT STUDY TITLE: Two-Armed Double-Blinded Registry-Based Randomized Control Trial Comparing Anterior Gastropexy to No Anterior Gastropexy for Paraesophageal Hernia Repair IRB NO.: #[id number] KENO WRITER / RUNNER: Dannie Lange MD Patient completed 1 year PROs and order faxed to [facility] to complete UGI. documented in this encounterPromedica Bay Park Hospital08-18-2022 Miscellaneous Notes* Telephone Encounter - Geneva Palacio RN - 01/07/2022 1:49 PM EDT Attempted to contact Ms. Enriquez regarding her my chart message today. I left a voice mail message and will follow up with a my chart message . Geneva Palacio RN documented in this encounterPromedica Bay Park Hospital08-15-2022 History of Present illness Narrative* Brent Calvillo MD - 01/04/2022 3:00 PM EDT DEPARTMENT OF GASTROENTEROLOGY Consulting Physician: Beata Dorsey [facility] [id number] Suzanne Dorsey [facility] [id number] Thank you for your kind new patient consult of . Please see below for my recommendations and treatment plan which will be communicated to you by way of shared medical record or mail. CC: BE with recent RFA History of Present Illness: Jyoti Enriquez is a 66 year old female who presents for evaluation of Day's esophagus. A formerpatient of Dr. Palacios with short segment BE. Last EGD was almost one year ago with RFA. C2M2. In April, she underwent fundoplication for Hiatal hernia. Since then, her reflux symptoms are better controlled. Denies dysphagia or odynophagia. Compliant with medication. Presently: Previous ablations with Dr. Palacios due to Day's, got very sick after anesthesia for weeks. Feels she needs twilight sleep does not get sick. Had hiatal hernia surgery in 04/2022 Symptoms of GERD improved after surgery Covid in November, heartburn, reflux returned post COVID Nothing gets stuck Sometime discomfort at top of stomach while eating then goes away No PPI after surgery Appetite good Weight stable Diarrhea baseline, has had bouts of it all life Former smoker ETOH social very occasional Carbonated beverages occasional Family history Patient is adopted The patient is seen and examined by Dr. Calvillo and the following reflects his/her service. Scribed by Geneva Palacio RN Past Medical History: PAST MEDICAL HISTORY Diagnosis Date Arthritis Diabetes (HCC) Essential (primary) hypertension 04/27/2021 Migraines POTS (postural orthostatic tachycardia syndrome) Past Surgical History: PAST SURGICAL HISTORY Procedure Laterality Date ABDOMINAL SURGERY HX 2004 ADDITIONAL SPINAL FUSION 07/27/2004 PAST SURGICAL HISTORY OF cervical fusion 2013, 2018 TONSILLECTOMY HX VAGINAL HYSTERECTOMY Family History: FAMILY HISTORY Adopted: Yes Problem Relation Age of Onset other (addisons) Maternal Grandmother Social History: Tobacco Use: Quit (quit smoking in 2014) Alcohol Use: Yes (rarely) Drug Use: Never Allergies: ALLERGIES Allergen Reactions Hydrocodone Other: See Comments, GI Upset Headaches Oxycodone GI Upset Can take 1/2 tab, but full tab makes her sick 12 Hour Cold Capsule Intolerance Zcm-Qtizhxerv-Dtnzo* Itching Diazepam Other: See Comments sick-headache Diphenhydramine Intolerance Levofloxacin Intolerance Nalbuphine Rash Progesterone Other: See Comments, GI Upset Speeds up metabolism Weight gain and voice hoarse Pseudoephedrine-Dm-* Intolerance ANY Decongestant-Hyperactive Morphine Unknown, GI Upset, Vomiting, Other: See Comments Migraine Tramadol Itching, Unknown Tooth sensitivity Only tolerates low dose Only tolerates low dose Medications: Current Outpatient Medications Medication Sig eletriptan (RELPAX) 40 mg tablet Take at onset of a moderate to severe migraine, if not completely gone in 2 hours you may repeat the dose x 1. Maximum of 2 doses in 24 hours, Maximum use of 2 days each week. rimegepant (NURTEC ODT) 75 mg disintegrating tablet Take 1 tablet by mouth once daily as needed. onabotulinum toxin type A (BOTOX) 100 unit solr Inject 200 Units intramuscularly one time only for 1 dose. Follow the PREEMPT protocol, administer 200 units every 3 months, indefinitely. levothyroxine (SYNTHROID) 50 mcg tablet aspirin/acetaminophen/caffeine (EXCEDRIN MIGRAINE ORAL) Excedrin Migraine as needed blood sugar diagnostic (ONETOUCH VERIO TEST STRIPS) test strip OneTouch Verio test strips evolocumab (REPATHA SURECLICK) 140 mg/mL pen injector Repatha SureClick 140 mg/mL subcutaneous pen injector Current Facility-Administered Medications Medication Dose Route Frequency onabotulinum toxin type A 200 Units injection (BOTOX) 200 Units OTHER q 3 MONTHS Review of Systems: GENERAL: negative for malaise, significant weight loss, night sweats and fever HEENT: No changes in hearing or vision, no nose bleeds or other nasal problems., No trouble swallowing NECK: Negative for lumps, goiter, pain and significant neck swelling RESPIRATORY: Negative for cough, wheezing and shortness of breath CARDIOVASCULAR: Negative for chest pain, leg swelling, palpitations, orthopnea GI: Negative for abdominal discomfort, hematochezia, melena, hematemesis, change in bowel habits, diarrhea, constipation, nausea or vomiting. and SEE HPI MUSCULOSKELETAL: Negative for joint pain or swelling, back pain, and muscle pain. Physical Exam: VITALS: There were no vitals taken for this visit., There is no height or weight on file to calculate BMI. GENERAL: well appearing, alert, in no acute distress, well-hydrated, well nourished HEENT: HEAD: normocephalic, atraumatic, no masses, lesions, tenderness or abnormalities EYES: EOMI, Anicteric sclera EARS: external ears normal NOSE: negative THROAT: lips, mucosa, and tongue normal, teeth and gums normal, oropharynx normal NECK: FROM, No JVD or bruits. SKIN: No jaundice LUNGS: clear to auscultation, no wheezing, rales or rhonchi HEART: RRR, normal S1, S2 auscultated, no M/G/R ABD: soft, non-tender, non-distended. Bowel sounds normal. No masses, organomegaly EXTREMITIES: No clubbing, cyanosis, or edema. MUSCULOSKELETAL: No joint swelling, deformity, or tenderness NEURO: Alert and oriented x3, speech clear and fluent, gait normal Imaging/Labs: EGD Ablation 01/21/2021: Impression: - Examination of previous Day's treatment: [place]-colored mucosa was present, secondary to residual Day's esophagus. Treated with radiofrequency ablation. - 3 cm hiatal hernia. - Multiple gastric polyps. - Normal examined duodenum. - No specimens collected. EGD Ablation 09/03/2020: Impression: - Esophageal mucosal changes classified as Day's stage C0-M1 per [place] criteria. Treated with radiofrequency ablation. - 3 cm hiatal hernia. - Normal stomach. - Normal examined duodenum. - No specimens collected. I agree with the Chief Complaint, ROS, and Past Histories independently gathered by the clinical support merchandiser and the remaining scribed note accurately describes my personal service to the patient. Impression and Plan: 66 y/o woman with BE who presents for follow up. She has received care (EGD) due to bad experience from previous endoscopy - BE: Naif Schedule for EGD with biopy - Hiatal hernia: Doing better symptomatically. Continue current management - Electrolyte abnormality: No active issue. Will recheck Jyoti Enriquez is a 66 year old female who presents for evaluation of Day's esophagus.She had hiatal hernia surgery in 04/2021, some GERD symptoms return following COVID in November,. Plan: Plan for EGD with biopsies to evaluate Day's esophagus. CBC CMP I would like to thank you for the kind referral of . I appreciate the opportunity to be involved in her care. Please do not hesitate to call upon me if I may be of further assistance. Brent Calvillo M.D. Office:[phone] Appointments [phone] Fax [phone] documented in this encounterProm[facility]-12-[facility] Miscellaneous Notes* Telephone Encounter - Daniela Hinkle - 01/01/2022 3:15 PM EDT Called [facility] ( # [phone]) and spoke with Rosario to order Botox shipment. She mentionsthat patient had called their pharmacy on 12/28/21 and had added Medicare as another insurance. Also mentions that patient has $300 copay currently because the Botox Copay card has . Called and spoke with patient. She had already spoken with [facility] earlier today and is aware she will need to reapply for Botox Savings Copay card. Clarified that Medicare insurance is only for Part A benefits, which will not pertain to our office visits or to Botox drug. Patient will follow up with Botox Savings Program so that we can reorder her Botox early next week. Patient is currently scheduled for Botox appointment on 01/08/22. documented in this encounterPromed[facility]05-09-2022 Miscellaneous Notes* Telephone Encounter - Abiel Muhammad PA-C - 09/28/2021 2:41 PM EDT Patient requesting refills of eletriptan, but she is not due until 11/03/2021. Abiel Muhammad PA-C September 28, 2021 2:42 PM documented in this encounterPromedica [facility]05-06-2022 Instructions* Patient Instructions* Abiel Muhammad PA-C - 09/25/2021 1:15 PM EDT Botox Home Instruction: Instruction after botox injection: - If you have any pain or swelling use ice, 20 min on and 20 min off. Do not rub or massage the area for 48 hrs. - If you have any neck stiffness, you may use heat and do stretching exercises. - This should improve over the next 5 days. - If it does not, call our office at [phone] for further instructions. Nurtec ( rimegepant) ODT: 75 mg: take one by mouth at onset of migraine: max of 75 mg/24 hours. #01/19 days. Please get coupon of website. May use Relpax;Take at onset of a moderate to severe migraine, if not completely gone in 2 hours you may repeat the dose x 1. Maximum of 2 doses in 24 hours, Maximum use of 2 days each week. documented in this encounterPromedica [facility]05-06-2022 Procedure note* Abiel Muhammad PA-C - 09/25/2021 1:08 PM EDT Follow-Up Onabotulinum Toxin A (BotoxTM) for Migraine Indication: Chronic Intractable Migraine Referral Expiration: 09/01/2022 Prior to the initiation of the FIRST treatment with Onabotulinum Toxin A, the patient reported the following average headache frequency over the past 3 MONTHS: Number of moderate-severe migraine days/month: 20 Number of mild migraine days/month: 0 Number of headache free days/month: 10 (240 headache-free hours) Migraine severity: 10/10 After treatment with Onabotulinum Toxin A: Number of moderate-severe migraine days/month: 15 Number of mild migraine days/month: 0 Number of headache free days/month: 15 (360 headache-free hours) Migraine severity: 8/10 Patient reduction in overall migraine days: Yes Patient reduction in moderate-severe migraine days: Yes Patient reduction of headache hours by 100 hours or more: Yes (reduction of 120 hours) Individual has obtained clinical benefit deemed significant by individual or prescriber (Y/N): Yes Patient's quality of life and ability to perform ADLs has improved (Y/N): Yes Side effects: none Wearing off: No HEADACHE SCORES: Headache Questions 08/28/2021 09/04/2021 09/18/2021 ID Migraine Screener: - - - ER visits in the last year: - - - ER visits since last office visit: 0 - - Hospital stays in the last year: - - - Hospital stays since last office visit 0 - - Limited ADLs in the last month: 12 - - Days missed from work or school in the last month: 0 0 - Days headache pain free in the last month: 18 - - Days per month with ALL of the following symptoms - decreased productivity, light sensitivity and nausea: 12 - - Initial improvement of headache after botox injection at last visit: Minimally improved - - PRN medication usage in the last month: 12 - - Patient impression of improvement since last visit: Minimally improved Minimally improved Minimallyimproved HIT-6 10/29/2020 02/18/2021 08/28/2021 HIT-6 70 (Severe impact) 56 (Substantial impact) 72 (Severe impact) KATIE - 2/7 SCORES 10/29/2020 02/18/2021 08/28/2021 KATIE-2 Score 0 0 0 Migraine Specific QOL - Higher scores indicate better HRQL 10/29/2020 02/18/2021 08/28/2021 Role Function-Restrictive Transformed Score (range: 0-100) 22.85 20 14.29 Role Function-Preventive Transformed Score (range: 0-100) 30 60 25 Emotional Function Transformed Score (range: 0-100) 86.66 100 66.67 PHQ-9 10/29/2020 02/18/2021 08/28/2021 Score 3 5 3 BP 137/58 (BP Site: Left Arm, BP Position: Sitting, BP Cuff Size: Large Adult) Pulse 89 Wt 87.1kg (192 lb) LMP (LMP Unknown) BMI 30.99 kg/m Patient name: Jyoti Enriquez : 1955 ALLERGIES Allergen Reactions Hydrocodone Other: See Comments, GI Upset Headaches Oxycodone GI Upset Can take 1/2 tab, but full tab makes her sick 12 Hour Cold Capsule Intolerance Nhd-Bycqsajfk-Imvcq* Itching Diazepam Other: See Comments sick-headache Diphenhydramine Intolerance Levofloxacin Intolerance Nalbuphine Rash Progesterone Other: See Comments, GI Upset Speeds up metabolism Weight gain and voice hoarse Pseudoephedrine-Dm-* Intolerance ANY Decongestant-Hyperactive Morphine Unknown, GI Upset, Vomiting, Other: See Comments Migraine Tramadol Itching, Unknown Tooth sensitivity Only tolerates low dose Only tolerates low dose UNIVERSAL PROTOCOL / SAFETY CHECKLIST Procedure: Onabotulinum toxin A for migraine Informed Consent Consent Obtained: Written [place] Protocol A moment to CARE was completed SIGN IN Personnel directly involved with the procedure wore the appropriate PPE Special Equipment: N/A Patient/Surrogate Stated/Verified: Patient name, Date of , Relevant allergies and Intended procedure TIME OUT Intended patient and procedure match the source document(s) Consent documented and matches the intended procedure No relevant labs, photos, and/or imaging studies were applicable for review. Correct side/site marked and visible. Medications required for procedure verified. No fire risk assessment and interventions applicable. No implant(s) inserted. SIGN OUT No specimen collected. All instruments, equipment, possible retained foreign bodies accounted for. Post-procedure follow-up management communicated and Plan of Care Visit completed when applicable Written Consent Obtained: Written LOT #: [id number] Expiration Date: Month: Year: 2023 Second vial: LOT #: [id number] Expiration Date: Month: Year: 2023 Injection Sites Left (Units) Left (Sites) Right (Units) Right (Sites) TOTAL (Units) Dice Maker 5 1 5 1 10 Procerus Units: 5 Sites: 1 5 Frontalis 10 2 10 2 20 Temporalis 20 4 20 4 40 Occipitalis 15 3 15 3 30 Cervical PSP 10 2 10 2 20 Trapezius 15 3 15 3 30 Total Units used: 155 Total Units wasted: 45 Patient brings OWN botox Prior Therapies Duration of Use Dose Side effect Anti-Convulsant Gabapentin (Neurontin) Topiramate (Topamax, Trokendi XL, Qudexy) Anti-Migraine Eletriptan (Relpax) Sumatriptan (Imitrex, Sumavel) Botulinum Toxin Onabotulinum Toxin A (Botox) Supplements Magnesium Riboflavin Over the Counter Medications Acetaminophen (Tylenol) Acetaminophen/Aspirin (Goody s) Acetaminophen/Aspirin/Caffeine (Excedrin, Goody s) Aspirin Ibuprofen (Advil, Motrin) Naproxen sodium (Aleve) Abiel Muhammad PA-C documented in this encounterPromedica [facility]04-14-2022 Miscellaneous Notes* Telephone Encounter - Abiel Muhammad PA-C - 09/03/2021 7:21 AM EDT Botox order placed. Would not allow me to add refills. [facility]. Please let me know if there is anything else that I need to do. Thank you, Abiel Muhammad PA-C September 03, 2021 7:21 AM * Telephone Encounter - Daniela Trae Hinkle - 09/02/2021 2:00 PM EDT Patient's insurance requires our office to obtain Botox through [facility] ( #[phone]). Please order prescription for Botox, to be called in. Please include amount, duration, frequency, route of administration, and area to be injected. Patient has been notified and is aware Botox appointment on 09/04/21 might need to be postponed. documented [facility]* Diagnosis Chronic migraine without aura, intractable, without status migrainosus- Primary documented in this encounter [facility]* Diagnosis History of hiatal hernia- Primary Personal history of other diseases of digestive system documented [facility] this encounter [facility]* Diagnosis Day's esophagus with low grade dysplasia- Primary Day's esophagus [facility]* Diagnosis Hiatal hernia with gastroesophageal reflux- Primary Esophageal reflux [facility]* Diagnosis Paraesophageal hernia- Primary Diaphragmatic hernia without mention of obstruction or gangrene documented [facility] this [facility]* Diagnosis Day's esophagus with low grade dysplasia Day's esophagus [facility]* Diagnosis Day's esophagus without dysplasia- Primary Day's esophagus Generalized abdominal pain Abdominal pain, generalized documented [facility] this encounter [facility]* Diagnosis Onset Date Resolution Status Breast cancer, right [facility] Work Phone: Evaluation note* Diagnosis Malignant neoplasm of upper-outer quadrant of right breast in female, estrogen receptor positive (HCC) documented [facility] this encounter [facility]* Diagnosis Malignant neoplasm of upper-outer quadrant of right breast in female, estrogen receptor positive (HCC)- Primary [facility] Malignant neoplasm of upper-outer quadrant of right breast in female, estrogen receptor positive (HCC) [facility]* Diagnosis Malignant neoplasm of upper-outer quadrant of right breast in female, estrogen receptor positive (HCC)- Primary Immunotherapy Abnormal blood chemistry Other abnormal blood chemistry Thyroiditis Thyroiditis, unspecified [facility]* Diagnosis Malignant neoplasm of upper-outer quadrant of right breast in female, estrogen receptor positive (HCC) [facility]* Diagnosis Malignant neoplasm of upper-outer quadrant of right breast in female, estrogen receptor positive (HCC)- Primary Blood glucose elevated Other abnormal glucose [facility]* Diagnosis Malignant neoplasm of upper-outer quadrant of right breast in female, estrogen receptor positive (HCC)- Primary [facility]* Diagnosis Malignant neoplasm of upper-outer quadrant of right breast in female, estrogen receptor positive (HCC) [facility]* Diagnosis Breast disorder Unspecified breast disorder [facility] Diagnosis Triple negative breast cancer (HCC)- Primary [facility]* Diagnosis Malignant neoplasm of upper-outer quadrant of right breast in female, estrogen receptor positive (HCC) Immunotherapy Abnormal blood chemistry Other abnormal blood chemistry Thyroiditis Thyroiditis, unspecified [facility]* Diagnosis Malignant neoplasm of upper-outer quadrant of right breast in female, estrogen receptor positive (HCC)- Primary [facility]* Diagnosis Malignant neoplasm of upper-outer quadrant of right breast in female, estrogen receptor negative (HCC)- Primary Immunotherapy Abnormal blood chemistry Other abnormal blood chemistry Thyroiditis Thyroiditis, unspecified Blood glucose elevated Other abnormal glucose [facility]* Diagnosis Malignant neoplasm of breast in female, estrogen receptor negative, unspecified laterality, unspecified site of breast (HCC)- Primary Malignant neoplasm of upper-outer quadrant of right breast in female, estrogen receptor positive (HCC) [facility]* Diagnosis Malignant neoplasm of upper-outer quadrant of right breast in female, estrogen receptor positive (HCC) [facility]* Diagnosis Malignant neoplasm of upper-outer quadrant of right breast in female, estrogen receptor positive (HCC)- Primary [facility] Diagnosis Malignant neoplasm of central portion of right breast in female, estrogen receptor negative (HCC)- Primary Immunotherapy Thyroiditis Thyroiditis, unspecified Blood glucose elevated Other abnormal glucose documented in this encounter [facility] note* Diagnosis Malignant neoplasm of upper-outer quadrant of right breast in female, estrogen receptor positive (HCC)- Primary documented in this encounter [facility] note* Diagnosis Malignant neoplasm of upper-outer quadrant of right breast in female, estrogen receptor positive (HCC) (HCC)- Primary documented in this encounter [facility] for referral (narrative)* Diagnostic Procedure Only (Routine) - Pending Review Specialty Diagnoses / Procedures Referred By Rosette Referred To Contact XR IMAGING Diagnoses History of hiatal hernia Procedures XR UPPER GI SINGLE CONTRAST RADIOLOGIC EXAM UPR GI TRC SINGLE CONTRAST STUDY Bobby Garrett MD [address] [id number] Xr Imaging Referral ID Status Reason Start Date Expiration Date Visits Requested Visits Authorized [id number] Pending Review Auto-Generat ed Referral 01/01/2022 01/31/2023 1 1 [facility] for referral (narrative)* Outpatient Procedure (Routine) - Pending Review Specialty Diagnoses / Procedures Referred By Rosette sutton Referred To Contact [facility] Diagnoses Day's esophagus with low grade dysplasia Procedures EGD DIAGNOSTIC ESOPHAGOGASTRODUODENOSC OPY TRANSORAL DIAGNOSTIC Brent Calvillo MD [address] [place] [address] [facility] [address] [place] [address] Referral ID Status Reason Start Date Expiration Date Visits Requested Visits Authorized [id number] Pending Review Auto-Generat ed Referral 01/04/2022 01/04/2023 1 1 T [facility] for referral (narrative)* Outpatient Procedure (Routine) - Closed Specialty Diagnoses / Procedures Referred By Rosette sutton Referred To Contact ENDOSCOPY Diagnoses Day's esophagus with low grade dysplasia Procedures EGD DIAGNOSTIC ESOPHAGOGASTRODUODENOSCOPY TRANSORAL DIAGNOSTIC Brent Calvillo MD [address] [place] [address] [facility] Q3 Endoscopy [address] [address] Referral ID Status Reason Start Date Expiration Date V isits Requested Visits Authorized [id number] Closed Auto-Generate d Referral 02/16/2022 05/16/2022 1 1 [facility] for referral (narrative)* Outpatient Procedure (Routine) - Pending Review Specialty Diagnoses / Procedures Referred By Rosette sutton Referred To Contact [facility] Diagnoses Day's esophagus without dysplasia Generalized abdominal pain Procedures EGD DIAGNOSTIC ESOPHAGOGASTRODUODENOSC OPY TRANSORAL DIAGNOSTIC Brent Calvillo MD [address] [place] [address] [facility] [place] [address] [place] [id number] Referral ID Status Reason Start Date Expiration Date Visits Requested Visits Authorized [id number] Pending Review Auto-Generat ed Referral 08/23/2022 08/24/2023 1 1 [facility] for referral (narrative)* Diagnostic Procedure Only (Routine) - Closed Specialty Diagnoses / Procedures Referred By Rosette sutton Referred To Contact BR [facility] Diagnoses Malignant neoplasm of upper-outer quadrant of right breast in female, estrogen receptor positive (HCC) Procedures US BREAST LTD RIGHT US BREAST UNI REAL TIME WITH IMAGE LIMITED Rosalba Reynoso MD [address] [place] [address] [facility] [address] [place] [phone] Referral ID Status Reason Start Date Expiration Date V isits Requested Visits Authorized [id number] Closed Auto-Generate d Referral 02/28/2023 03/29/2024 1 1 [facility] for referral (narrative)* Diagnostic Procedure Only (Routine) - Closed Specialty Diagnoses / Procedures Referred By Contac t Referred To Contact [facility] Diagnoses Breast disorder Procedures US BIOPSY BREAST RIGHT BX BREAST W/DEVICE 1ST LESION ULTRASOUND GUID Anya Alcaraz MD [address] [address] [facility] [address] [place] [address] Referral ID Status Reason Start Date Expiration Date V isits Requested Visits Authorized [id number] Closed Auto-Generate d Referral 03/10/2023 04/08/2024 1 1 [facility] for referral (narrative)* Diagnostic Procedure Only (Routine) - Closed Specialty Diagnoses / Procedures Referred By Sakinaac t Referred To Contact [facility] IM[facility] Diagnoses Malignant neoplasm of upper-outer quadrant of right breast in female, estrogen receptor positive (HCC) Procedures US BREAST LTD RIGHT US BREAST UNI REAL TIME WITH IMAGE LIMITED Rosalba Reynoso MD [address] [place] [address] [facility] [address] [place] [address] Referral ID Status Reason Start Date Expiration Date V isits Requested Visits Authorized [id number] Closed Auto-Generate d Referral 02/28/2023 03/29/2024 1 1 [facility] for visit Narrative* Outpatient Procedure (Routine) - Closed Specialty Diagnoses / Procedures [facility] Referred To Contact ENDOSCOPY Diagnoses Day's esophagus with low grade dysplasia Procedures EGD DIAGNOSTIC ESOPHAGOGASTRODUODENOSCOPY TRANSORAL DIAGNOSTIC Brent Calvillo MD [address] [place] [address] Asc [facility] Endoscopy [address] [address] Referral ID Status Reason Start Date Expiration Date V isits Requested Visits Authorized [id number] Closed Auto-Generate d Referral 02/16/2022 05/16/2022 1 1 [facility] for visit Narrative* Diagnostic Procedure Only (Routine) - Closed Specialty Diagnoses / Procedures Referred By Contac t Referred To Contact MR IMAGING Diagnoses Malignant neoplasm of upper-outer quadrant of right breast in female, estrogen receptor positive (HCC) Procedures MRI BREAST WO/W IVCON BILATERAL MRI BREAST WITHOUT&WITH CONTRAST W/CAD BILATERAL Paulo Singh MD [address] [place] [address] [place] [address] [place] [id number] Referral ID Status Reason Start Date Expiration Date V isits Requested Visits Authorized [id number] Closed Auto-Generate d Referral 03/15/2023 06/15/2023 1 1 [facility] for visit Narrative* Diagnostic Procedure Only (Routine) - Closed Specialty Diagnoses / Procedures [facility] BR IMAGING Diagnoses Malignant neoplasm of upper-outer quadrant of right breast in female, estrogen receptor positive (HCC) Procedures SUSIE DIAGNOSTIC BILATERAL DIAGNOSTIC MAMMOGRAPHY COMPUTER-AIDED DETCJ Rosalba Morley MD [address] [place] [address] Br Imaging [address] [place] [address] Referral ID Status Reason Start Date Expiration Date V isits Requested Visits Authorized [id number] Closed Auto-Generate d Referral 02/28/2023 03/29/2024 1 1 [facility] for visit Narrative* Diagnostic Procedure Only (Routine) - Closed Specialty Diagnoses / Procedures [facility] Referred To Contact BR IMAGING Diagnoses Breast disorder Procedures US BIOPSY BREAST RIGHT BX BREAST W/DEVICE 1ST LESION ULTRASOUND GUID Anya Alcaraz MD [address] [facility] [place] [address] Br Imaging [address] [place] [address] Referral ID Status Reason Start Date Expiration Date V isits Requested Visits Authorized [id number] Closed Auto-Generate d Referral 03/10/2023 04/08/2024 1 1 [facility] Summary Purpose Family History No Family History Records Found Relationship Condition Age at Onset Recorded Date/T jatin Not Specified Cerebrovascular accident (CVA) Unknown father Coronary artery disease Unknown Advance Directives No Advanced Directives Records FoundDocuments on File Type Date Recorded 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 Advance Directive(s) 04/08/2021 1:27 PM Advance Directive(s) 01/05/2021 10:54 AM Advance Directive(s) 08/07/2020 4:12 PM Advance Directive(s) 06/24/2020 8:37 AM [facility] Advance Directive(s) 05/14/2020 1:07 PM Advance Directive(s) 04/11/2020 4:24 PM [facility] Advance Directive(s) 03/10/2020 3:02 PM Documents on File Type Date Recorded 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 Advance Directive(s) 05/14/2020 1:07 PM Documents on File Type Date Recorded 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 Advance Directive(s) 05/14/2020 1:07 PM Documents on File Type Date Recorded 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 Advance Directive(s) 03/25/2023 Advance Directives- Living Will Advance Directive(s) 05/14/2020 1:07 PM Documents on File Type Date Recorded 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 See progress note for specific locations and amounts administered. Given 09/25/2021 8:30 AM EDT 155 Units Othe r Inactive Administered Medications - up to 3 most recent administrations Medication Order MAR Action Action Date Dose Rate Site CARBOplatin 195 mg in NaCl 0.9% 129.5 mL (PARAPLATIN) 195 mg (Target AUC = 1.5), INTRAVENOUS, Administer over 30 Minutes, ONCE, 1 dose, On Tue03/17/23 at 1130, EXP:03/18/23 1130 RT Hazardous Chemotherapy Drug: Use appropriate PPE. Antineoplastic Irritant. New Bag/Syringe/Bottle 03/17/2023 12:42 PM EDT 195 mg dexAMETHasone 10 mg in NaCl 0.9% 50 mL (DECADRON) 10 mg, INTRAVENOUS, ONCE, 1 dose, On 03/17/23 at 1000, Refrigerate. New Bag/Syringe/Bottle 03/17/2023 10:25 AM EDT 10 mg diphenhydrAMINE 25 mg injection (BENADRYL) 25 mg, INTRAVENOUS, ONCE, 1 dose, On Melody 03/17/23 at 1000, Give prior to chemotherapy. Given 03/17/2023 10:17 AM EDT 25 mg famotidine 20 mg injection (PEPCID) 20 mg, INTRAVENOUS, ONCE, 1 dose, On Melody 03/17/23 at 1000, Give prior to chemotherapy. REFRIGERATE Given 03/17/2023 10:19 AM EDT 20 mg PACLitaxel 158.4 mg in NaCl 0.9% 301.4 mL (TAXOL) 158.4 mg (80 mg/m2 1.98 m2 Treatment Plan BSA from Recorded weight), INTRAVENOUS, Administer over 1 Hours, ONCE, 1 dose, On Melody 03/17/23 at 1030, Approx Total Volume = mL. Exp: 03/18/23 1630 RT Hazardous Chemotherapy Drug: Use appropriate PPE. Antineoplastic Irritant with Vesicant Potential. Administer with non-DEHP 0.2 micron filter and tubing. New Bag/Syringe/Bottle 03/17/2023 11:32 AM EDT 158.4 mg palonosetron 0.25 mg injection (ALOXI) 0.25 mg, INTRAVENOUS, ONCE, 1 dose, On Melody 03/17/23 at 1000, Flush IV line with NS prior to and following administration. Given 03/17/2023 10:21 AM EDT 0.25 mg pembrolizumab 200 mg in NaCl 0.9% 66 mL (KEYTRUDA) 200 mg, INTRAVENOUS, Administer over 30 Minutes, ONCE, 1 dose, On Melody 03/17/23 at 1000, Approx Total Volume: 66 mL EXP: 03/17/23 1600 RT Administer with 0.2 micron filter. New Bag/Syringe/Bottle 03/17/2023 10:56 AM EDT 200 mg Inactive Administered Medications - up to 3 most recent administrations Medication Order MAR Action Action Date Dose Rate Site CARBOplatin 195 mg in NaCl 0.9% 129.5 mL (PARAPLATIN) 195 mg (Target AUC = 1.5), INTRAVENOUS, Administer over 30 Minutes, ONCE, 1 dose, On Tue03/25/23 at 1100, EXP:03/26/23 1050 RT Hazardous Chemotherapy Drug: Use appropriate PPE. Antineoplastic Irritant. New Bag/Syringe/Bottle 03/25/2023 11:50 AM EDT 195 mg dexAMETHasone sodium phosphate 4 mg injection (DECADRON) 4 mg, INTRAVENOUS, ONCE, 1 dose, On Tue03/25/23 at 1030 Given 03/25/2023 10:19 AM EDT 4 mg diphenhydrAMINE 25 mg injection (BENADRYL) 25 mg, INTRAVENOUS, ONCE, 1 dose, On Tue03/25/23 at 1000, Give prior to chemotherapy. Given 03/25/2023 10:21 AM EDT 25 mg famotidine 20 mg injection (PEPCID) 20 mg, INTRAVENOUS, ONCE, 1 dose, On Tue03/25/23 at 1000, Give prior to chemotherapy. REFRIGERATE Given 03/25/2023 10:17 AM EDT 20 mg PACLitaxel 158.4 mg in NaCl 0.9% 301.4 mL (TAXOL) 158.4 mg (80 mg/m2 1.98 m2 Treatment Plan BSA from Recorded weight), INTRAVENOUS, Administer over 1 Hours, ONCE, 1 dose, On Tue03/25/23 at 1000, EXP: 03/26/23 1600 RT Hazardous Chemotherapy Drug: Use appropriate PPE. Antineoplastic Irritant with Vesicant Potential. Administer with non-DEHP 0.2 micron filter and tubing. New Bag/Syringe/Bottle 03/25/2023 10:37 AM EDT 158.4 mg palonosetron 0.25 mg injection (ALOXI) 0.25 mg, INTRAVENOUS, ONCE, 1 dose, On Tue03/25/23 at 1000, Flush IV line with NS prior to and following administration. Given 03/25/2023 10:15 AM EDT 0.25 mg Inactive Administered Medications - up to 3 most recent administrations Medication Order MAR Action Action Date Dose Rate Site lidocaine (PF) 10 mg/mL (1 %) injection (XYLOCAINE) SUBCUTANEOUS, X (OR/PROCEDURE) PRN, Starting on Melody 03/10/23 at 1231, Until Melody 03/10/23 at 1231, Intraprocedure Given 03/10/2023 12:31 PM EDT 5 mL Breast, Right Inactive Administered Medications - up to 3 most recent administrations Medication Order MAR Action Action Date Dose Rate Site CARBOplatin 195 mg in NaCl 0.9% 129.5 mL (PARAPLATIN) 195 mg (Target AUC = 1.5), INTRAVENOUS, Administer over 30 Minutes, ONCE, 1 dose, On Tue04/08/23 at 1030, EXP:04/09/23 1030 RT Hazardous Chemotherapy Drug: Use appropriate PPE. Antineoplastic Irritant. New Bag/Syringe/Bottle 04/08/2023 12:27 PM EST 195 mg dexAMETHasone 10 mg in NaCl 0.9% 50 mL (DECADRON) 10 mg, INTRAVENOUS, ONCE, 1 dose, On Tue04/08/23 at 1030, Refrigerate. New Bag/Syringe/Bottle 04/08/2023 10:23 AM EST 10 mg diphenhydrAMINE 25 mg injection (BENADRYL) 25 mg, INTRAVENOUS, ONCE, 1 dose, On Tue04/08/23 at 1030, Give prior to chemotherapy. Given 04/08/2023 10:20 AM EST 25 mg famotidine 20 mg injection (PEPCID) 20 mg, INTRAVENOUS, ONCE, 1 dose, On Tue04/08/23 at 1030, Give prior to chemotherapy. REFRIGERATE Given 04/08/2023 10:19 AM EST 20 mg PACLitaxel 158.4 mg in NaCl 0.9% 301.4 mL (TAXOL) 158.4 mg (80 mg/m2 1.98 m2 Treatment Plan BSA from Recorded weight), INTRAVENOUS, Administer over 1 Hours, ONCE, 1 dose, On Tue04/08/23 at 1030, Approx Total Volume = mL. Exp: 03/30/23 1615 RT Hazardous Chemotherapy Drug: Use appropriate PPE. Antineoplastic Irritant with Vesicant Potential. Administer with non-DEHP 0.2 micron filter and tubing. New Bag/Syringe/Bottle 04/08/2023 11:17 AM EST 158.4 mg palonosetron 0.25 mg injection (ALOXI) 0.25 mg, INTRAVENOUS, ONCE, 1 dose, On Tue04/08/23 at 1030, Flush IV line with NS prior to and following administration. Given 04/08/2023 10:18 AM EST 0.25 mg pembrolizumab 200 mg in NaCl 0.9% 66 mL (KEYTRUDA) 200 mg, INTRAVENOUS, Administer over 30 Minutes, ONCE, 1 dose, On Tue04/08/23 at 1030, Approx Total Volume: 66 mL EXP: 04/08/23 1615 RT Administer with 0.2 micron filter. New Bag/Syringe/Bottle 04/08/2023 10:41 AM EST 200 mg Inactive Administered Medications - up to 3 most recent administrations Medication Order MAR Action Action Date Dose Rate Site CARBOplatin 195 mg in NaCl 0.9% 129.5 mL (PARAPLATIN) 195 mg (Target AUC = 1.5), INTRAVENOUS, Administer over 30 Minutes, ONCE, 1 dose, On Tue04/22/23 at 1230, EXP: 1200 04/23/23 Room Temp Hazardous Chemotherapy Drug: Use appropriate PPE. Antineoplastic Irritant. New Bag/Syringe/Bottle 04/22/2023 12:38 PM EST 195 mg dexAMETHasone sodium phosphate 4 mg injection (DECADRON) 4 mg, INTRAVENOUS, ONCE, 1 dose, On Tue04/22/23 at 1100 Given 04/22/2023 11:14 AM EST 4 mg diphenhydrAMINE 25 mg injection (BENADRYL) 25 mg, INTRAVENOUS, ONCE, 1 dose, On Tue04/22/23 at 1100, Give prior to chemotherapy. Given 04/22/2023 11:16 AM EST 25 mg famotidine 20 mg injection (PEPCID) 20 mg, INTRAVENOUS, ONCE, 1 dose, On Tue04/22/23 at 1100, Give prior to chemotherapy. REFRIGERATE Given 04/22/2023 11:12 AM EST 20 mg PACLitaxel 158.4 mg in NaCl 0.9% 301.4 mL (TAXOL) 158.4 mg (80 mg/m2 1.98 m2 Treatment Plan BSA from Recorded weight), INTRAVENOUS, Administer over 1 Hours, ONCE, 1 dose, On Tue04/22/23 at 1100, EXP: 1700 04/23/23 Room Temp Hazardous Chemotherapy Drug: Use appropriate PPE. Antineoplastic Irritant with Vesicant Potential. Administer with non-DEHP 0.2 micron filter and tubing. New Bag/Syringe/Bottle 04/22/2023 11:26 AM EST 158.4 mg palonosetron 0.25 mg injection (ALOXI) 0.25 mg, INTRAVENOUS, ONCE, 1 dose, On Tue04/22/23 at 1100, Flush IV line with NS prior to and following administration. Given 04/22/2023 11:10 AM EST 0.25 mg Inactive Administered Medications - up to 3 most recent administrations Medication Order MAR Action Action Date Dose Rate Site heparin 100 unit/mL 500 Units injection 500 Units (5 mL), INTRAVENOUS, DIRECTED NEEDED, Starting on Tue04/29/23 at 1017, Until Tue04/29/23 at 1359, See Administration Instructions, If no allergy to Heparin: IVADS not in use should be accessed and flushed once every 4 to 6 weeks and PRN with 5 mL of Heparin (100units/mL). Upon de-access of Fuller needle, when re-access is not indicated, ports will be flushed with 5 mL of Heparin (100 units/mL). Do not remove or delete this order unless patient has an allergy/contraindication to Heparin. Given 04/29/2023 11:22 AM EST 500 Units NaCl 0.9% iv infusion 1,000 mL/hr (rounded to 999 mL/hr), INTRAVENOUS, Administer over 1 Hours, ONCE, 1 dose, On Tue04/29/23 at 1030 New Bag/Syringe/Bottl e 04/29/2023 10:17 AM EST 1,000 mL/hr 999 mL/hr Inactive Administered Medications - up to 3 most recent administrations Medication Order MAR Action Action Date Dose Rate Site NaCl 0.9% iv infusion 1,000 mL/hr (rounded to 999 mL/hr), INTRAVENOUS, Administer over 1 Hours, ONCE, 1 dose, On Tue05/03/23 at 1430 New Bag/Syringe/Bottle 05/03/2023 2:25 PM EST 1,000 mL/hr 999 mL/hr Inactive Administered Medications - up to 3 most recent administrations Medication Order MAR Action Action Date Dose Rate Site CARBOplatin 175.5 mg in NaCl 0.9% 127.55 mL (PARAPLATIN) 175.5 mg (Target AUC = 1.5), INTRAVENOUS, Administer over 30 Minutes, ONCE, 1 dose, On Tue05/06/23 at 1400, EXP:05/07/23 1400 RT Hazardous Chemotherapy Drug: Use appropriate PPE. Antineoplastic Irritant. New Bag/Syringe/Bottl e 05/06/2023 3:54 PM EST 175.5 mg dexAMETHasone 10 mg in NaCl 0.9% 50 mL (DECADRON) 10 mg, INTRAVENOUS, ONCE, 1 dose, On Tue05/06/23 at 1400, Refrigerate. New Bag/Syringe/Bottl e 05/06/2023 1:50 PM EST 10 mg diphenhydrAMINE 25 mg injection (BENADRYL) 25 mg, INTRAVENOUS, ONCE, 1 dose, On Tue05/06/23 at 1400, Give prior to chemotherapy. Given 05/06/2023 1:47 PM EST 25 mg famotidine 20 mg injection (PEPCID) 20 mg, INTRAVENOUS, ONCE, 1 dose, On Tue05/06/23 at 1400, Give prior to chemotherapy. REFRIGERATE Given 05/06/2023 1:45 PM EST 20 mg NaCl 0.9% iv infusion 1,000 mL/hr (rounded to 999 mL/hr), INTRAVENOUS, Administer over 1 Hours, ONCE, 1 dose, On Tue05/06/23 at 1400 New Bag/Syringe/Bottl e 05/06/2023 1:40 PM EST 1,000 mL/hr 999 mL/hr PACLitaxel 150 mg in NaCl 0.9% 300 mL (TAXOL) 150 mg (rounded from 156 mg = 80 mg/m2 1.95 m2 Treatment Plan BSA from Recorded weight), INTRAVENOUS, Administer over 1 Hours, ONCE, 1 dose, On Tue05/06/23 at 1400, Approx Total Volume = mL. Exp: 05/07/231999 RT Hazardous Chemotherapy Drug: Use appropriate PPE. Antineoplastic Irritant with Vesicant Potential. Administer with non-DEHP 0.2 micron filter and tubing. New Bag/Syringe/Bottl e 05/06/2023 2:51 PM EST 150 mg palonosetron 0.25 mg injection (ALOXI) 0.25 mg, INTRAVENOUS, ONCE, 1 dose, On Tue05/06/23 at 1400, Flush IV line with NS prior to and following administration. Given 05/06/2023 1:43 PM EST 0.25 mg pembrolizumab 200 mg in NaCl 0.9% 66 mL (KEYTRUDA) 200 mg, INTRAVENOUS, Administer over 30 Minutes, ONCE, 1 dose, On Tue05/06/23 at 1400, Approx Total Volume: 66 mL EXP: 05/06/231999 RT Administer with 0.2 micron filter. New Bag/Syringe/Bottl e 05/06/2023 2:19 PM EST 200 mg Reason for Referral Specialty Diagnoses / Procedures Referred By Contac t Referred To Contact CT IMAGING Diagnoses Hiatal hernia with gastroesophageal reflux Procedures CT ABD/PEL WO IVCON CT ABD & PELVIS W/O CONTRAST Bobby Garrett MD [address] [place] [address] Ct Imaging Referral ID Status Reason Start Date Expiration Date Visits Requested Visits Authorized [id number] Pending Review Auto-Generat ed Referral 01/11/2022 02/10/2023 1 1 Specialty Diagnoses / Procedures Referred By Contac t Referred To Contact Diagnoses Malignant neoplasm of central portion of right breast in female, estrogen receptor negative (HCC) Procedures CONSULT TO PALLIATIVE CARE OFFICE/OUTPATIENT [facility] 60-74 MINUTES Paulo Singh MD [address] [place] [address] [place] [address] Referral ID Status Reason Start Date Expiration Date Visits Requested Visits Authorized [id number] Authorized PCP Requested Referral 04/29/2023 04/28/2024 1 1 Chief Complaint and Reason for Visit Chief Complaint breast cancer Reason for Visit Breast cancer, right Additional Source Comments INFORMATION SOURCE (unrecogn ized section and content) DATE CREATED AUTHOR 11/16/2017 [facility] DATE CREATED AUTHOR AUTHOR'S ORGANIZ ATION 05/01/2018 [facility] DATE CREATED AUTHOR AUTHOR'S ORGANIZ ATION 03/03/2022 [facility] DATE CREATED AUTHOR AUTHOR'S ORGANIZ ATION 09/09/2022 [facility] DATE CREATED AUTHOR AUTHOR'S ORGANIZ ATION 09/25/2022 [facility] DATE CREATED AUTHOR AUTHOR'S ORGANIZ ATION 03/18/2023 [facility] DATE CREATED AUTHOR AUTHOR'S ORGANIZ ATION 03/30/2023 [facility] DATE CREATED AUTHOR AUTHOR'S ORGANIZ ATION 04/21/2023 [facility] DATE CREATED AUTHOR AUTHOR'S ORGANIZ ATION 05/07/2023 [facility] DATE CREATED AUTHOR AUTHOR'S ORGANIZ ATION 05/09/2023 [facility] Source Comments (unrecognize d section and content) In the event this informatio n is protected by the Federal Confidentiality of Alcohol and Drug Abuse Patient Records regulations: The Federal rules restrict any use of the information to criminally investigate or prosecute any alcohol or drug abuse patient.[facility] the event this information is protected by the Federal Confidentiality of Alcohol and Drug Abuse Patient Records regulations: The Federal rules restrict any use of the information to criminally investigate or prosecute any alcohol or drug abuse patient.[facility] the event this information is protected by the Federal Confidentiality of Alcohol and Drug Abuse Patient Records regulations: The Federal rules restrict any use of the information to criminally investigate or prosecute any alcohol or drug abuse patient.[facility] the event this information is protected by the Federal Confidentiality of Alcohol and Drug Abuse Patient Records regulations: The Federal rules restrict any use of the information to criminally investigate or prosecute any alcohol or drug abuse patient.[facility] the event this information is protected by the Federal Confidentiality of Alcohol and Drug Abuse Patient Records regulations: The Federal rules restrict any use of the information to criminally investigate or prosecute any alcohol or drug abuse patient.[facility] the event this information is protected by the Federal Confidentiality of Alcohol and Drug Abuse Patient Records regulations: The Federal rules restrict any use of the information to criminally investigate or prosecute any alcohol or drug abuse patient.[facility] the event this information is protected by the Federal Confidentiality of Alcohol and Drug Abuse Patient Records regulations: The Federal rules restrict any use of the information to criminally investigate or prosecute any alcohol or drug abuse patient.[facility] the event this information is protected by the Federal Confidentiality of Alcohol and Drug Abuse Patient Records regulations: The Federal rules restrict any use of the information to criminally investigate or prosecute any alcohol or drug abuse patient.[facility] the event this information is protected by the Federal Confidentiality of Alcohol and Drug Abuse Patient Records regulations: The Federal rules restrict any use of the information to criminally investigate or prosecute any alcohol or drug abuse patient.[facility] the event this information is protected by the Federal Confidentiality of Alcohol and Drug Abuse Patient Records regulations: The Federal rules restrict any use of the information to criminally investigate or prosecute any alcohol or drug abuse patient.[facility] the event this information is protected by the Federal Confidentiality of Alcohol and Drug Abuse Patient Records regulations: The Federal rules restrict any use of the information to criminally investigate or prosecute any alcohol or drug abuse patient.[facility] the event this information is protected by the Federal Confidentiality of Alcohol and Drug Abuse Patient Records regulations: The Federal rules restrict any use of the information to criminally investigate or prosecute any alcohol or drug abuse patient.[facility] the event this information is protected by the Federal Confidentiality of Alcohol and Drug Abuse Patient Records regulations: The Federal rules restrict any use of the information to criminally investigate or prosecute any alcohol or drug abuse patient.[facility] the event this information is protected by the Federal Confidentiality of Alcohol and Drug Abuse Patient Records regulations: The Federal rules restrict any use of the information to criminally investigate or prosecute any alcohol or drug abuse patient.[facility] the event this information is protected by the Federal Confidentiality of Alcohol and Drug Abuse Patient Records regulations: The Federal rules restrict any use of the information to criminally investigate or prosecute any alcohol or drug abuse patient.[facility] the event this information is protected by the Federal Confidentiality of Alcohol and Drug Abuse Patient Records regulations: The Federal rules restrict any use of the information to criminally investigate or prosecute any alcohol or drug abuse patient.[facility] the event this information is protected by the Federal Confidentiality of Alcohol and Drug Abuse Patient Records regulations: The Federal rules restrict any use of the information to criminally investigate or prosecute any alcohol or drug abuse patient.[facility] the event this information is protected by the Federal Confidentiality of Alcohol and Drug Abuse Patient Records regulations: The Federal rules restrict any use of the information to criminally investigate or prosecute any alcohol or drug abuse patient.[facility] the event this information is protected by the Federal Confidentiality of Alcohol and Drug Abuse Patient Records regulations: The Federal rules restrict any use of the information to criminally investigate or prosecute any alcohol or drug abuse patient.[facility] Hospital[facility] the event this information is protected by the Federal Confidentiality of Alcohol and Drug Abuse Patient Records regulations: The Federal rules restrict any use of the information to criminally investigate or prosecute any alcohol or drug abuse patient.[facility] Hospital[facility] the event this information is protected by the Federal Confidentiality of Alcohol and Drug Abuse Patient Records regulations: The Federal rules restrict any use of the information to criminally investigate or prosecute any alcohol or drug abuse patient.[facility] Hospital[facility] the event this information is protected by the Federal Confidentiality of Alcohol and Drug Abuse Patient Records regulations: The Federal rules restrict any use of the information to criminally investigate or prosecute any alcohol or drug abuse patient.[facility] Hospital[facility] the event this information is protected by the Federal Confidentiality of Alcohol and Drug Abuse Patient Records regulations: The Federal rules restrict any use of the information to criminally investigate or prosecute any alcohol or drug abuse patient.[facility] Hospital[facility] the event this information is protected by the Federal Confidentiality of Alcohol and Drug Abuse Patient Records regulations: The Federal rules restrict any use of the information to criminally investigate or prosecute any alcohol or drug abuse patient.[facility] the event this information is protected by the Federal Confidentiality of Alcohol and Drug Abuse Patient Records regulations: The Federal rules restrict any use of the information to criminally investigate or prosecute any alcohol or drug abuse patient.[facility] Hospital[facility] the event this information is protected by the Federal Confidentiality of Alcohol and Drug Abuse Patient Records regulations: The Federal rules restrict any use of the information to criminally investigate or prosecute any alcohol or drug abuse patient.[facility] HospitalIn the event this information is protected by the Federal Confidentiality of Alcohol and Drug Abuse Patient Records regulations: The Federal rules restrict any use of the information to criminally investigate or prosecute any alcohol or drug abuse patient.[facility] the event this information is protected by the Federal Confidentiality of Alcohol and Drug Abuse Patient Records regulations: The Federal rules restrict any use of the information to criminally investigate or prosecute any alcohol or drug abuse patient.[facility]In the event this information is protected by the Federal Confidentiality of Alcohol and Drug Abuse Patient Records regulations: The Federal rules restrict any use of the information to criminally investigate or prosecute any alcohol or drug abuse patient.[facility]In the event this information is protected by the Federal Confidentiality of Alcohol and Drug Abuse Patient Records regulations: The Federal rules restrict any use of the information to criminally investigate or prosecute any alcohol or drug abuse patient.[facility]In the event this information is protected by the Federal Confidentiality of Alcohol and Drug Abuse Patient Records regulations: The Federal rules restrict any use of the information to criminally investigate or prosecute any alcohol or drug abuse patient.[facility]In the event this information is protected by the Federal Confidentiality of Alcohol and Drug Abuse Patient Records regulations: The Federal rules restrict any use of the information to criminally investigate or prosecute any alcohol or drug abuse patient.[facility]In the event this information is protected by the Federal Confidentiality of Alcohol and Drug Abuse Patient Records regulations: The Federal rules restrict any use of the information to criminally investigate or prosecute any alcohol or drug abuse patient.[facility]In the event this information is protected by the Federal Confidentiality of Alcohol and Drug Abuse Patient Records regulations: The Federal rules restrict any use of the information to criminally investigate or prosecute any alcohol or drug abuse patient.[facility]In the event this information is protected by the Federal Confidentiality of Alcohol and Drug Abuse Patient Records regulations: The Federal rules restrict any use of the information to criminally investigate or prosecute any alcohol or drug abuse patient.[facility] HospitalIn the event this information is protected by the Federal Confidentiality of Alcohol and Drug Abuse Patient Records regulations: The Federal rules restrict any use of the information to criminally investigate or prosecute any alcohol or drug abuse patient.[facility] HospitalIn the event this information is protected by the Federal Confidentiality of Alcohol and Drug Abuse Patient Records regulations: The Federal rules restrict any use of the information to criminally investigate or prosecute any alcohol or drug abuse patient.[facility]In the event this information is protected by the Federal Confidentiality of Alcohol and Drug Abuse Patient Records regulations: The Federal rules restrict any use of the information to criminally investigate or prosecute any alcohol or drug abuse patient.[facility]In the event this information is protected by the Federal Confidentiality of Alcohol and Drug Abuse Patient Records regulations: The Federal rules restrict any use of the information to criminally investigate or prosecute any alcohol or drug abuse patient.[facility] HospitalIn the event this information is protected by the Federal Confidentiality of Alcohol and Drug Abuse Patient Records regulations: The Federal rules restrict any use of the information to criminally investigate or prosecute any alcohol or drug abuse patient.[facility] HospitalIn the event this information is protected by the Federal Confidentiality of Alcohol and Drug Abuse Patient Records regulations: The Federal rules restrict any use of the information to criminally investigate or prosecute any alcohol or drug abuse patient.[facility] HospitalIn the event this information is protected by the Federal Confidentiality of Alcohol and Drug Abuse Patient Records regulations: The Federal rules restrict any use of the information to criminally investigate or prosecute any alcohol or drug abuse patient.[facility] HospitalIn the event this information is protected by the Federal Confidentiality of Alcohol and Drug Abuse Patient Records regulations: The Federal rules restrict any use of the information to criminally investigate or prosecute any alcohol or drug abuse patient.[facility] HospitalIn the event this information is protected by the Federal Confidentiality of Alcohol and Drug Abuse Patient Records regulations: The Federal rules restrict any use of the information to criminally investigate or prosecute any alcohol or drug abuse patient.[facility]In the event this information is protected by the Federal Confidentiality of Alcohol and Drug Abuse Patient Records regulations: The Federal rules restrict any use of the information to criminally investigate or prosecute any alcohol or drug abuse patient.[facility] HospitalIn the event this information is protected by the Federal Confidentiality of Alcohol and Drug Abuse Patient Records regulations: The Federal rules restrict any use of the information to criminally investigate or prosecute any alcohol or drug abuse patient.[facility] HospitalIn the event this information is protected by the Federal Confidentiality of Alcohol and Drug Abuse Patient Records regulations: The Federal rules restrict any use of the information to criminally investigate or prosecute any alcohol or drug abuse patient.[facility] the event this information is protected by the Federal Confidentiality of Alcohol and Drug Abuse Patient Records regulations: The Federal rules restrict any use of the information to criminally investigate or prosecute any alcohol or drug abuse patient.[facility] HospitalIn the event this information is protected by the Federal Confidentiality of Alcohol and Drug Abuse Patient Records regulations: The Federal rules restrict any use of the information to criminally investigate or prosecute any alcohol or drug abuse patient.[facility] HospitalIn the event this information is protected by the Federal Confidentiality of Alcohol and Drug Abuse Patient Records regulations: The Federal rules restrict any use of the information to criminally investigate or prosecute any alcohol or drug abuse patient.[facility] the event this information is protected by the Federal Confidentiality of Alcohol and Drug Abuse Patient Records regulations: The Federal rules restrict any use of the information to criminally investigate or prosecute any alcohol or drug abuse patient.[facility] HospitalIn the event this information is protected by the Federal Confidentiality of Alcohol and Drug Abuse Patient Records regulations: The Federal rules restrict any use of the information to criminally investigate or prosecute any alcohol or drug abuse patient.[facility] HospitalIn the event this information is protected by the Federal Confidentiality of Alcohol and Drug Abuse Patient Records regulations: The Federal rules restrict any use of the information to criminally investigate or prosecute any alcohol or drug abuse patient.[facility] HospitalIn the event this information is protected by the Federal Confidentiality of Alcohol and Drug Abuse Patient Records regulations: The Federal rules restrict any use of the information to criminally investigate or prosecute any alcohol or drug abuse patient.[facility] HospitalIn the event this information is protected by the Federal Confidentiality of Alcohol and Drug Abuse Patient Records regulations: The Federal rules restrict any use of the information to criminally investigate or prosecute any alcohol or drug abuse patient.[facility] Reason for Visit (unrecogniz ed section and content) Reason Comments Breast Cancer Specialty Diagnoses / Procedures Referred By Contac t Referred To Contact Diagnoses Malignant neoplasm of upper-outer quadrant of right breast in female, estrogen receptor positive (HCC) Procedures CONSULT TO MEDICAL GENETICS - CANCER MEDICAL GENETICS COUNSELING EACH 30 MINUTES Paulo Singh MD [facility] [address] [address] [place] [address] Referral ID Status Reason Start Date Expiration Date V isits Requested Visits Authorized [id number] Closed PCP Requested Referral Auto-Generated Referral 04/12/2023 05/22/2023 1 1 Specialty Diagnoses / Procedures Referred By Contac t Referred To Contact Hematology/Oncology / HEMATOLOGY/ONCOLOGY Diagnoses Follow-up examination follow up lab port chemotx Taxol Carbo Keytruda NEW START Procedures OFFICE/OUTPATIENT ESTABLISHED MOD MDM 30-39 MIN ON TREATMENT VISIT Paulo Singh MD [facility] [address] Paulo Singh MD [facility] [place] [address] Referral ID Status Reason Start Date Expiration Date Visits Re quested Visits Authorized [id number] Closed 03/17/2023 06/15/2023 1 1 Reason Comments Medication Request Specialty Botox Reason Comments Botox Injection Chronic Migraine Specialty Diagnoses / Procedures Referred By Contac t Referred To Contact HEADACHE Diagnoses Chronic migraine without aura, intractable, without status migrainosus Procedures BOTULINUM TOXIN A PER 1 UNIT Renewal Botox due 07/08/2021 200 units every 90 days x 1 year preempt protocol [id number] buy and bill procedure 55280 Abiel Muhammad PA-C [address] [id number] Neur Headache Main [address] [place] [address] Referral ID Status Reason Start Date Expiration Date V isits Requested Visits Authorized [id number] Authorized-R X 09/03/2021 09/01/2022 4 4 Specialty Diagnoses / Procedures Referred By Contact Referred To Contact Gastroenterology / GASTROENTEROLOGY Diagnoses Day's esophagus Procedures OFFICE/OUTPATIENT ESTABLISHED MOD MDM 30-39 MIN NEW DDI PATIENT Brent Calvillo MD [address] [id number] Brent Calvillo MD [address] [place] [address] Referral ID Status Reason Start Date Expiration Date Visits Re quested Visits Authorized [id number] Closed 05/23/2021 05/22/2022 1 1 Reason Comments Patient Question Reason Comments Research F/U Reason Comments Insurance Authorization [id number] Reason Comments Established Patient Specialty Diagnoses / Procedures Referred By Contac t Referred To Contact General Surgery / GENERAL SURGERY Diagnoses HIATAL HERNIA Procedures NEW PATIENT VISIT LEVEL 5 NEWDDI HIATAL HERNIA PREFERRED Self, MD Garrett, Bobby Yip MD [address] [place] [address] Referral ID Status Reason Start Date Expiration Date V isits Requested Visits Authorized [id number] Authorized 02/26/2021 02/26/2022 99 99 Reason Comments Refill Request Reason Comments Appointment Confirmation Reason Comments Medication Question Specialty Botox Reason Comments Future Appointment Reason Comments Imaging Appt Reason Comments Patient Update Reason Comments Care Coordination Antiemetics Reason Comments 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 Reason Comments Research IRB [id number] Case [id number] Presentation-Declined Reason Comments 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 Results Reason Comments Results Reason Comments Lab Orders Specialty Diagnoses / Procedures Referred By Rosette Referred To Contact Hematology / HEMATOLOGY/ONCOLOGY Diagnoses Malignant neoplasm of upper-outer quadrant of right female breast Estrogen receptor positive status (ER+) follow up lab port chemotx Taxol Carbo Keytruda NEW START Procedures COMPREHENSIVE METABOLIC PANEL BLOOD COUNT COMPLETE AUTO&AUTO DIFRNTL WBC LAB/PORT Paulo Singh MD [address] [place] [address] [place] [address] Jarrell Ndiaye [address] [place] [address] Referral ID Status Reason Start Date Expiration Date V isits Requested Visits Authorized [id number] Closed Clearance Not Met - Admin/Chairm an/Director Advise to Postpone/Res chedule or Not Proceed 03/17/2023 05/22/2023 1 1 Specialty Diagnoses / [facility] Referred To Contact Diagnoses Malignant neoplasm of upper-outer quadrant of right breast in female, estrogen receptor positive (HCC) Procedures DOXORUBIC HCL 10 MG VL CHEMO PACLITAXEL INJECTION CARBOPLATIN INJECTION PALONOSETRON HCL INJECTION, PEGFILGRASTIM, EXCLUDES BIOSIMILAR, 0.5 MG INJ PEMBROLIZUMAB FOSAPREPITANT INJECTION CYCLOPHOSPHAMIDE 100 MG INJ FOSAPREPITANT INJECTION Paulo Singh MD [address] [place] [address] [place] [address] Jarrell Treat Senthil [address] [place] [address] Referral ID Status Reason Start Date Expiration Date V isits Requested Visits Authorized [id number] Authorized 02/22/2023 05/22/2023 99 99 Reason Comments 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 C1D1 Post Treat ment Call Reason Comments Benefits Investigation Reason Comments Breast Cancer Follow up Reason Comments Art Therapy Specialty Diagnoses / Procedures [facility] Referred To Contact General Surgery / GENERAL SURGERY Diagnoses Malignant neoplasm of upper-outer quadrant of right breast in female, estrogen receptor positive (HCC) same day imaging at 8:00- pt needs earliest possible Procedures OFFICE/OUTPATIENT NEW MODERATE MDM 45-59 MINUTES NEW BREAST CANCER Self Rosalba Reynoso MD [address] [facility] [place] [address] Referral ID Status Reason Start Date Expiration Date V isits Requested Visits Authorized [id number] Closed Patient Cleared - Admin/Chairm an/Director advise to proceed or did not respond 03/09/2023 05/22/2023 1 1 Specialty Diagnoses / Procedures Referred By Contac t Referred To Contact Hematology / HEMATOLOGY/ONCOLOGY Diagnoses Follow-up examination 3wk f/u follow up lab port chemotx Taxol Carbo Keytruda Procedures COMPREHENSIVE METABOLIC PANEL BLOOD COUNT COMPLETE AUTO&AUTO DIFRNTL WBC LAB/PORT Paulo Singh MD [address] [place] [address] Jarrell Ndiaye [address] [place] [address] Referral ID Status Reason Start Date Expiration Date V isits Requested Visits Authorized [id number] Outside [facility] 04/29/2023 07/28/2023 1 1 Reason Comments Breast Cancer Specialty Diagnoses / Procedures Referred By Contac t Referred To Contact Hematology/Oncology / HEMATOLOGY/ONCOLOGY Diagnoses Follow-up examination 3wk follow up lab port chemotx Taxol Carbo Keytruda Procedures OFFICE/OUTPATIENT ESTABLISHED MOD MDM 30-39 MIN ON TREATMENT VISIT Paulo Singh MD [address] [place] [address] Paulo Singh MD [address] [place] [address] [place] [address] Referral ID Status Reason Start Date Expiration Date V isits Requested Visits Authorized [id number] Outside [facility] 04/29/2023 07/28/2023 1 1 Specialty Diagnoses / Procedures Referred By Contac t Referred To Contact Hematology/Oncology / HEMONC INFUSION Diagnoses FLUIDS Procedures IV INFUSION HYDRATION INITIAL 31 MIN-1 HOUR HYDRATION Self Jarrell Treat Senthil [address] [place] [address] Referral ID Status Reason Start Date Expiration Date Visits Re quested Visits Authorized [id number] Closed 05/03/2023 05/22/2023 1 1 Reason Comments Orders Specialty Diagnoses / Procedures Referred By Rosette sutton Referred To Contact Diagnoses Malignant neoplasm of upper-outer quadrant of right breast in female, estrogen receptor positive (HCC) (HCC) Procedures DOXORUBIC HCL 10 MG VL CHEMO PACLITAXEL INJECTION CARBOPLATIN INJECTION PALONOSETRON HCL INJECTION, PEGFILGRASTIM, EXCLUDES BIOSIMILAR, 0.5 MG INJ PEMBROLIZUMAB FOSAPREPITANT INJECTION CYCLOPHOSPHAMIDE 100 MG INJ FOSAPREPITANT INJECTION Paulo Singh MD [address] [place] [address] [place] [address] Jarrell Treat [address] [place] [address] Care Teams (unrecognized sec tion and content) Cardiovascular Specialist Relationship Specialty Start Date End Date Pankaj Osei MD [address] [place] [address] PCP - General Family Practice 11/05/19 Pankaj Osei MD [address] [id number] Family Practice 10/19/19 Cardiovascular Specialist Relationship Specialty Start Date End Date Pankaj Osei MD [address] [id number] PCP - General Family Practice 11/05/19 Pankaj Osei MD [address] [id number] Family Practice 10/19/19 Cardiovascular Specialist Relationship Specialty Start Date End Date Pankaj Osei MD [address] [id number] PCP - General Family Practice 11/05/19 Pankaj Osei MD [address] [place] [facility] [place] [address] Family Practice 10/19/19 Cardiovascular Specialist Relationship Specialty Start Date End Date Pankaj Osei MD [address] [place] [facility] [place] [place] [address] PCP - General Family Practice 11/05/19 Pankaj Osei MD [address] [place] [facility] [place] [place] [address] Family Practice 10/19/19 Cardiovascular Specialist Relationship Specialty Start Date End Date Pankaj Osei MD [address] [place] [facility] [place] [place] [address] PCP - General Family Practice 11/05/19 Pankaj Osei MD [address] [place] [facility] [place] [place] [address] Family Practice 10/19/19 Cardiovascular Specialist Relationship Specialty Start Date End Date Pankaj Osei MD [address] [place] [facility] [place] [place] [address] PCP - General Family Practice 11/05/19 Pankaj Osei MD [address] [place] [facility] [place] [place] [address] Family Practice 10/19/19 Cardiovascular Specialist Relationship Specialty Start Date End Date Pankaj Osei MD [address] [place] [facility] [place] [place] [address] PCP - General Family Practice 11/05/19 Pankaj Osei MD [address] [place] [facility] [place] [place] [address] Family Practice 10/19/19 Cardiovascular Specialist Relationship Specialty Start Date End Date Pankaj Osei MD [address] [place] [facility] [place] [place] [address] PCP - General Family Practice 11/05/19 Pankaj Osei MD [address] [place] [facility] [place] [place] [address] Family Practice 10/19/19 Cardiovascular Specialist Relationship Specialty Start Date End Date Pankaj Osei MD [address] [place] [facility] [place] [place] [address] PCP - General Family Practice 11/05/19 Pankaj Osei MD [address] [place] [facility] [place] [place] [address] Family Practice 10/19/19 Cardiovascular Specialist Relationship Specialty Start Date End Date Pankaj Osei MD [address] [place] [facility] [place] [place] [address] PCP - General Family Practice 11/05/19 Pankaj Osei MD [address] [place] [facility] [place] [place] [address] Family Practice 10/19/19 Cardiovascular Specialist Relationship Specialty Start Date End Date Pankaj Osei MD [address] [place] [facility] [place] [place] [address] PCP - General Family Medicine 11/05/19 Pankaj Osei MD [address] [place] [facility] [place] [place] [address] Family Medicine 10/19/19 Cardiovascular Specialist Relationship Specialty Start Date End Date Pankaj Osei MD [address] [place] [facility] [place] [place] [address] PCP - General Family Medicine 11/05/19 Pankaj Osei MD [address] [place] [facility] [place] [place] [address] Family Medicine 10/19/19 Cardiovascular Specialist Relationship Specialty Start Date End Date Pankaj Osei MD PCP - General Family Medicine 11/05/19 Pankaj Osei MD Family Medicine 10/19/19 Cardiovascular Specialist Relationship Specialty Start Date End Date Pankaj Osei MD PCP - General Family Medicine 11/05/19 Pankaj Osei MD Family Medicine 10/19/19 Cardiovascular Specialist Relationship Specialty Start Date End Date Pankaj Osei MD PCP - General Family Medicine 11/05/19 Pankaj Osei MD Family Medicine 10/19/19 Cardiovascular Specialist Relationship Specialty Start Date End Date Pankaj Osei MD PCP - General Family Medicine 11/05/19 Pankaj Osei MD Family Medicine 10/19/19 Cardiovascular Specialist Relationship Specialty Start Date End Date Pankaj Osei MD PCP - General Family Medicine 11/05/19 Pankaj Osei MD Family Medicine 10/19/19 Cardiovascular Specialist Relationship Specialty Start Date End Date Pankaj Osei MD PCP - General Family Medicine 11/05/19 Pankaj Osei MD Family Medicine 10/19/19 Cardiovascular Specialist Relationship Specialty Start Date End Date Pankaj Osei MD PCP - General Family Medicine 11/05/19 Pankaj Osei MD Family Medicine 10/19/19 Team Status: Active Member Role Status Dates Pankaj Osei MD Primary Care Provider Active Team Status: Inactive Member Role Status Dates Pankaj Osei MD Primary Care Provider Active Candido Mary MD Attending Provider Active Cardiovascular Specialist Relationship Specialty Start Date End Date Pankaj Osei MD PCP - General Family Medicine 11/05/19 Pankaj Osei MD Family Medicine 10/19/19 Paulo Singh MD [address] [place] [address] [place] [address] Physician Hematology/Oncology 03/03/23 Adair Elaine APRN.[employer]ING [employer]URING [employer]ICIAN [address] [place] [address] [place] [address] Specialty Stockroom Attendant Hematology/Oncology 03/03/23 Asia Duong, JEVON [address] [place] [address] Specialty Stockroom Attendant Hematology/Oncology 03/03/23 Cardiovascular Specialist Relationship Specialty Start Date End Date Pankaj Osei MD PCP - General Family Medicine 11/05/19 Pankaj Osei MD Family Medicine 10/19/19 Paulo Singh MD [address] [place] [address] Physician Hematology/Oncology 03/03/23 Adair Elaine, RESIDENTIAL SOLAR CONSULTANT.[employer] ME[employer]URING OPTICIAN [address] [place] [address] Specialty Stockroom Attendant Hematology/Oncology 03/03/23 Asia Duong, JEVON [address] [place] [address] Specialty Stockroom Attendant Hematology/Oncology 03/03/23 Cardiovascular Specialist Relationship Specialty Start Date End Date Pankaj Oesi MD PCP - General Family Medicine 11/05/19 Pankaj Osei MD Family Medicine 10/19/19 Paulo Singh MD [address] [place] [address] Physician Hematology/Oncology 03/03/23 Adair Elaine, RESIDENTIAL SOLAR CONSULTANT.[employer]ING [employer] MEASURING OPTICIAN [address] [place] [address] Specialty Stockroom Attendant Hematology/Oncology 03/03/23 Asia Duong, JEVON [address] [place] [address] Specialty Stockroom Attendant Hematology/Oncology 03/03/23 Cardiovascular Specialist Relationship Specialty Start Date End Date Pankaj Osei MD PCP - General Family Medicine 11/05/19 Pankaj Osei MD Family Medicine 10/19/19 Paulo Singh MD [address] [place] [address] Physician Hematology/Oncology 03/03/23 Adair Elaine, RESIDENTIAL SOLAR CONSULTANT.[employer]ING AND MEASURING OPTICIAN [address] [place] [address] Specialty Stockroom Attendant Hematology/Oncology 03/03/23 Asia Duong, JEVON [address] [place] [address] Specialty Stockroom Attendant Hematology/Oncology 03/03/23 Cardiovascular Specialist Relationship Specialty Start Date End Date Pankaj Osei MD PCP - General Family Medicine 11/05/19 Pankaj Osei MD Family Medicine 10/19/19 Paulo Singh MD [address] [place] [address] Physician Hematology/Oncology 03/03/23 Adair Elaine, RESIDENTIAL SOLAR CONSULTANT.[employer]ING AND MEASURING OPTICIAN [address] [place] [address] Specialty Stockroom Attendant Hematology/Oncology 03/03/23 Asia Duong, JEVON [address] [place] [address] Specialty Stockroom Attendant Hematology/Oncology 03/03/23 Cardiovascular Specialist Relationship Specialty Start Date End Date Pankaj Osei MD PCP - General Family Medicine 11/05/19 Pankaj Osei MD Family Medicine 10/19/19 Paulo Singh MD [address] [place] [address] Physician Hematology/Oncology 03/03/23 Adair Elaine, RESIDENTIAL SOLAR CONSULTANT.DISPENSING AND MEASURING OPTICIAN [address] [place] [address] Specialty Stockroom Attendant Hematology/Oncology 03/03/23 Asia Duong, JEVON [address] [facility] [place] [address] Specialty Stockroom Attendant Hematology/Oncology 03/03/23 Cardiovascular Specialist Relationship Specialty Start Date End Date Pankaj Osei MD PCP - General Family Medicine 11/05/19 Pankaj Osei MD Family Medicine 10/19/19 Paulo Singh MD [address] [place] [address] Physician Hematology/Oncology 03/03/23 Adair Elaine, RESIDENTIAL SOLAR CONSULTANT.DISPENSING AND MEASURING OPTICIAN [address] [place] [address] Specialty Stockroom Attendant Hematology/Oncology 03/03/23 Asia Duong, JEVON [address] [place] [address] Specialty Stockroom Attendant Hematology/Oncology 03/03/23 Cardiovascular Specialist Relationship Specialty Start Date End Date Pankaj Osei MD PCP - General Family Medicine 11/05/19 Pankaj Osei MD Family Medicine 10/19/19 Paulo Singh MD [address] [place] [address] Physician Hematology/Oncology 03/03/23 Adair Elaine, RESIDENTIAL SOLAR CONSULTANT.DISPENSING AND MEASURING OPTICIAN [address] [place] [address] Specialty Stockroom Attendant Hematology/Oncology 03/03/23 Asia Duong, RN [address] [place] [address] Specialty Stockroom Attendant Hematology/Oncology 03/03/23 Cardiovascular Specialist Relationship Specialty Start Date End Date Pankaj Osei MD PCP - General Family Medicine 11/05/19 Pankaj Osei MD Family Medicine 10/19/19 Paulo Singh MD [address] [place] [address] Physician Hematology/Oncology 03/03/23 Adair Elaine, RESIDENTIAL SOLAR CONSULTANT.DISPENSING AND MEASURING OPTICIAN [address] [place] [address] Specialty Stockroom Attendant Hematology/Oncology 03/03/23 Asia Duong, RN [address] [place] [address] Specialty Stockroom Attendant Hematology/Oncology 03/03/23 Cardiovascular Specialist Relationship Specialty Start Date End Date Pankaj Osei MD PCP - General Family Medicine 11/05/19 Pankaj Osei MD Family Medicine 10/19/19 Paulo Singh MD [address] [place] [address] Physician Hematology/Oncology 03/03/23 Adair Elaine, RESIDENTIAL SOLAR CONSULTANT.DISPENSING AND MEASURING OPTICIAN [address] [place] [address] Specialty Stockroom Attendant Hematology/Oncology 03/03/23 Asia Duong RN [address] [place] [address] Specialty Stockroom Attendant Hematology/Oncology 03/03/23 Cardiovascular Specialist Relationship Specialty Start Date End Date Pankaj Osei MD PCP - General Family Medicine 11/05/19 Pankaj Osei MD Family Medicine 10/19/19 Paulo Singh MD [address] [place] [address] Physician Hematology/Oncology 03/03/23 Adair Elaine, RESIDENTIAL SOLAR CONSULTANT.DISPENSING AND MEASURING OPTICIAN [address] [place] [address] Specialty Stockroom Attendant Hematology/Oncology 03/03/23 Asia Duong, JEVON [address] [place] [address] Specialty Stockroom Attendant Hematology/Oncology 03/03/23 Cardiovascular Specialist Relationship Specialty Start Date End Date Pankaj Osei MD PCP - General Family Medicine 11/05/19 Pankaj Osei MD Family Medicine 10/19/19 Paulo Singh MD [address] [place] [address] Physician Hematology/Oncology 03/03/23 Adair Elaine, RESIDENTIAL SOLAR CONSULTANT.DISPENSING AND MEASURING OPTICIAN [address] [place] [address] Specialty Stockroom Attendant Hematology/Oncology 03/03/23 Asia Duong RN [address] [place] [address] Specialty Stockroom Attendant Hematology/Oncology 03/03/23 Cardiovascular Specialist Relationship Specialty Start Date End Date Pankaj Osei MD PCP - General Family Medicine 11/05/19 Pankaj Osei MD Family Medicine 10/19/19 Paulo Singh MD [address] [place] [address] Physician Hematology/Oncology 03/03/23 Adair Elaine, RESIDENTIAL SOLAR CONSULTANT.DISPENSING AND MEASURING OPTICIAN [address] [place] [address] Specialty Stockroom Attendant Hematology/Oncology 03/03/23 Asia Duong, JEVON [address] [place] [address] Specialty Stockroom Attendant Hematology/Oncology 03/03/23 Cardiovascular Specialist Relationship Specialty Start Date End Date Pankaj Osei MD PCP - General Family Medicine 11/05/19 Pankaj Osei MD Family Medicine 10/19/19 Paulo Singh MD [address] [place] [address] Physician Hematology/Oncology 03/03/23 Adair Elaine, RESIDENTIAL SOLAR CONSULTANT.DISPENSING AND MEASURING OPTICIAN [address] [place] [address] Specialty Stockroom Attendant Hematology/Oncology 03/03/23 Asia Duong RN [address] [place] [address] Specialty Stockroom Attendant Hematology/Oncology 03/03/23 Cardiovascular Specialist Relationship Specialty Start Date End Date Pankaj Osei MD PCP - General Family Medicine 11/05/19 Pankaj Osei MD Family Medicine 10/19/19 Paulo Singh MD [address] [place] [address] Physician Hematology/Oncology 03/03/23 Adair Elaine, RESIDENTIAL SOLAR CONSULTANT.DISPENSING AND MEASURING OPTICIAN [address] [place] [address] Specialty Stockroom Attendant Hematology/Oncology 03/03/23 Asia uDong, JEVON [address] [place] [address] Specialty Stockroom Attendant Hematology/Oncology 03/03/23 Cardiovascular Specialist Relationship Specialty Start Date End Date Pankaj Osei MD PCP - General Family Medicine 11/05/19 Pankaj Osei MD Family Medicine 10/19/19 Paulo Singh MD [address] [place] [address] Physician Hematology/Oncology 03/03/23 Adair Elaine, RESIDENTIAL SOLAR CONSULTANT.DISPENSING AND MEASURING OPTICIAN [address] [place] [address] Specialty Stockroom Attendant Hematology/Oncology 03/03/23 Asia Duong RN [address] [place] [address] Specialty Stockroom Attendant Hematology/Oncology 03/03/23 Cardiovascular Specialist Relationship Specialty Start Date End Date Pankaj Osei MD PCP - General Family Medicine 11/05/19 Pankaj Osei MD Family Medicine 10/19/19 Paulo Singh MD [address] [place] [address] Physician Hematology/Oncology 03/03/23 Adair Elaine, RESIDENTIAL SOLAR CONSULTANT.DISPENSING AND MEASURING OPTICIAN [address] [place] [address] Specialty Stockroom Attendant Hematology/Oncology 03/03/23 Asia Duong, JEVON [address] [address] Specialty Stockroom Attendant Hematology/Oncology 03/03/23 Tessy Guerrero LSW Pen Tester 04/22/23 Cardiovascular Specialist Relationship Specialty Start Date End Date Pankaj Osei MD PCP - General Family Medicine 11/05/19 Pankaj Osei MD Family Medicine 10/19/19 Paulo Singh MD [address] [address] Physician Hematology/Oncology 03/03/23 Adair Elaine APRN.DISPENSING AND MEASURING OPTICIAN [address] [address] Specialty Stockroom Attendant Hematology/Oncology 03/03/23 Asia Duong, JEVON [address] [address] Specialty Stockroom Attendant Hematology/Oncology 03/03/23 Tessy Guerrero LSW Pen Tester 04/22/23 Cardiovascular Specialist Relationship Specialty Start Date End Date Pankaj Osei MD PCP - General Family Medicine 11/05/19 Pankaj Osei MD Family Medicine 10/19/19 Paulo Singh MD [address] [address] Physician Hematology/Oncology 03/03/23 Adair Elaine, RESIDENTIAL SOLAR CONSULTANT.DISPENSING AND MEASURING OPTICIAN [address] [place] [address] Specialty Stockroom Attendant Hematology/Oncology 03/03/23 Asia Duong, JEVON [address] [place] [address] Specialty Stockroom Attendant Hematology/Oncology 03/03/23 Tessy Guerrero LSW Pen Tester 04/22/23 Cardiovascular Specialist Relationship Specialty Start Date End Date Pankaj Osei MD PCP - General Family Medicine 11/05/19 Pankaj Osei MD Family Medicine 10/19/19 Paulo Singh MD [address] [place] [address] Physician Hematology/Oncology 03/03/23 Adair Elaine, RESIDENTIAL SOLAR CONSULTANT.DISPENSING AND MEASURING OPTICIAN [address] [place] [address] Specialty Stockroom Attendant Hematology/Oncology 03/03/23 Asia Duong, JEVON [address] [place] [address] Specialty Stockroom Attendant Hematology/Oncology 03/03/23 Tessy Guerrero LSW Pen Tester 04/22/23 Cardiovascular Specialist Relationship Specialty Start Date End Date Pankaj Osei MD PCP - General Family Medicine 11/05/19 Pankaj Osei MD Family Medicine 10/19/19 Paulo Singh MD [address] [place] [address] Physician Hematology/Oncology 03/03/23 Adair Elaine, RESIDENTIAL SOLAR CONSULTANT.DISPENSING AND MEASURING OPTICIAN [address] [place] [address] Specialty Stockroom Attendant Hematology/Oncology 03/03/23 Asia Duong, JEVON [address] [place] [address] Specialty Stockroom Attendant Hematology/Oncology 03/03/23 Tessy Guerrero LSW Pen Tester 04/22/23 Cardiovascular Specialist Relationship Specialty Start Date End Date Pankaj Osei MD PCP - General Family Medicine 11/05/19 Pankaj Osei MD Family Medicine 10/19/19 Paulo Singh MD [address] [facility] [place] [address] Physician Hematology/Oncology 03/03/23 Adair Elaine, RESIDENTIAL SOLAR CONSULTANT.DISPENSING AND MEASURING OPTICIAN [address] [place] [address] Specialty Stockroom Attendant Hematology/Oncology 03/03/23 Asia Duong, RN [address] [place] [address] Specialty Stockroom Attendant Hematology/Oncology 03/03/23 Tessy Guerrero LSW Pen Tester 04/22/23 Cardiovascular Specialist Relationship Specialty Start Date End Date Pankaj Osei MD PCP - General Family Medicine 11/05/19 Pankaj Osei MD Family Medicine 10/19/19 Paulo Singh MD [address] [place] [address] Physician Hematology/Oncology 03/03/23 Adair Elaine, RESIDENTIAL SOLAR CONSULTANT.DISPENSING AND MEASURING OPTICIAN [address] [place] [address] Specialty Stockroom Attendant Hematology/Oncology 03/03/23 Asia Duong, JEVON [address] [place] [address] Specialty Stockroom Attendant Hematology/Oncology 03/03/23 Tessy Guerrero LSW Pen Tester 04/22/23 Cardiovascular Specialist Relationship Specialty Start Date End Date Pankaj Osei MD PCP - General Family Medicine 11/05/19 Pankaj Osei MD Family Medicine 10/19/19 Paulo Singh MD [address] [place] [address] Physician Hematology/Oncology 03/03/23 Adiar Elaine, RESIDENTIAL SOLAR CONSULTANT.DISPENSING AND MEASURING OPTICIAN [address] [place] [address] Specialty Stockroom Attendant Hematology/Oncology 03/03/23 Asia Duong, JEVON [address] [place] [address] Specialty Stockroom Attendant Hematology/Oncology 03/03/23 Tessy Guerrero LSW Pen Tester 04/22/23 Cardiovascular Specialist Relationship Specialty Start Date End Date Pankaj Osei MD PCP - General Family Medicine 11/05/19 Pankaj Osei MD Family Medicine 10/19/19 Paulo Singh MD [address] [place] [address] Physician Hematology/Oncology 03/03/23 Adair Elaine APRN.DISPENSING AND MEASURING OPTICIAN [address] [place] [address] Specialty Stockroom Attendant Hematology/Oncology 03/03/23 Asia Duong, JEVON [address] [place] [address] Specialty Stockroom Attendant Hematology/Oncology 03/03/23 Tessy Guerrero LSW Pen Tester 04/22/23 FOR RECORDS PERTAINING TO PATIENTS WHO ARE OR HAVE BEEN ENROLLED IN A CHEMICAL DEPENDENCY/SUBSTANCEABUSE PROGRAM, SOME INFORMATION MAY BE OMITTED. This clinical summary was aggregated from multiple sources. Caution should be exercised in using it in the provision of clinical care. This summary normalizes information from multiple sources, and as a consequence, information in this document may materially change the coding, format and clinical context of patient data. In addition, data may be omitted in some cases. CLINICAL DECISIONS SHOULD BE BASED ON THE PRIMARY CLINICAL RECORDS. [employer] provides no warranty or guarantee of the accuracy or completeness of information in this document.
== END 2023-03-30 13:59 | disposition home or self-care (01) ==
LOC: DE 13:59
PROVIDERS: PCP Family Medicine; Visit Provider Family Medicine
DX: E11.8 Type 2 diabetes mellitus with unspecified complications (principal)
CPT/HCPCS: G0108

== ENCOUNTER 2023-09-26 12:50 | Outpatient (OUT) | payer OTHER, MEDICARE, SELFPAY ==
--- NOTE | 2023-09-26 13:00 | CA_ITS ---
Patient Name: BEHZAD ENRIQUEZ MR#: [id number] : 1955 Exam Date: 09/26/2023 Ordering Doctor: DR. CATRACHITO SINGH M.D. ECHOCARDIOGRAM REPORT PROCEDURE: CA ECHO DOPPLER COMPLETE INDICATIONS: Cardiotoxicity, chemotherapy for breast cancer COMPARISON: None. DESCRIPTION: COMPLETE ECHOCARDIOGRAM Real-time transthoracic echocardiography with 2D, M-mode, spectral and color flow Doppler performed. QUALITY: Technical quality was good. 66 , 160#, BSA 1.82 m2, BP 108/66 LEFT VENTRICLE: Normal chamber size. Normal left ventricular wall thickness. LV EF: Global left ventricular systolic function is difficult to assess but appears normal; visually estimated ejection fraction is 55 to 60%. Calculated ejection fraction is erroneous. Unable to assess regional wall motion abnormality; recommend contrast study for better delineation of endocardial borders. DIASTOLIC: Normal diastolic function. ATRIAL SEPTUM: Visually appears intact. LEFT ATRIUM: Normal chamber size. RIGHT ATRIUM: Normal chamber size. RIGHT VENTRICLE: Normal chamber size. Normal right ventricular systolic function. TRICUSPID VALVE: Normal mobility and thickness. No stenosis with no regurgitation. Unable to assess right-sided pressures due to lack of measurable tricuspid regurgitation. MITRAL VALVE: Normal mobility and thickness. No evidence of mitral valve stenosis. There is no mitral annular calcification. Mild mitral regurgitation. AORTIC VALVE: Normal trileaflet appearance. No visible sclerosis. Normal leaflet mobility. No evidence of aortic valve stenosis. No aortic regurgitation. AORTIC ROOT: Normal diameter and appearance. PULMONIC VALVE: Normal thickness and mobility. No stenosis. No regurgitation. PERICARDIUM: No evidence of pericardial effusion. IVC: Not well visualized. STRAIN: Strain measurements are reduced ranging from -11.4% to an average of -4.6%. However, given suboptimal endocardial tracings; this may be inaccurate. CONCLUSION: 1. Global left ventricular systolic function is difficult to assess but appears preserved; visually estimated ejection fraction is 55 to 60% 2. Normal right ventricular size and systolic function 3. No significant valvular abnormalities 4. Strain measurements are reduced but unlikely erroneous given suboptimal tracing 5. Recommend alternate modalities for evaluation of ejection fraction (e.g. MUGA scan or cardiac MRI) Adult Echocardiography Procedure Report Left Ventricle LVEDD (3.7 - 5.6 cm): 4.34 cm LVESD (2.2 - 4.0 cm): 3.35 cm LVIVS thickness (0.6 - 1.2 cm): 0.90 cm LVPW thickness (0.5 - 1.0 cm): 0.69 cm e': 0.12 m/s E - e': 4.78 LVOT Max Gradient: 4.19 mm[Hg] LVOT Area (cm2): 1.02 m/s Peak Velocity (LVOT): 1.02 m/s LVOT Diameter 2.02 cm Left Atrium LA Volume Index (2D A2C): 32.41 ml/m2 Left Atrium Systolic Dimension: 3.30 cm Mitral Valve MV E to A Ratio: 0.60 Mitral Valve A-Wave Peak Velocity: 0.94 m/s Mitral Valve E-Wave Peak Velocity: 0.57 m/s Right Ventricle Aorta AO Root Diam: 2.75 cm Aortic Valve AoV Area (Peak Dre): 2.81 cm2, 2.81 cm2 Peak Velocity(Antegrade Flow): 1.16 m/s Peak Gradient(Antegrade Flow): 5.42 mm[Hg] Tricuspid Valve Pulmonic Valve Mean Gradient: 0.98 mm[Hg], 1.10 mm[Hg] Mean Velocity: 0.47 m/s, 0.51 m/s Peak Velocity: 0.70 m/s Peak Gradient: 1.97 mm[Hg], 1.55 mm[Hg], 1.55 mm[Hg] Right Atrium Right Atrium Systolic Pressure: 40.94 ml, 40.94 ml Dictated by: Vilma Sanchez M.D. on 09/27/2023 at 16:39 Approved by: Vilma Sanchez M.D. on 09/27/2023 at 16:45
== END 2023-09-26 12:51 | disposition home or self-care (01) ==
LOC: CARD 12:52
PROVIDERS: PCP Family Medicine; Visit Provider Internal Medicine Hematology & Oncology
DX: C50.411 Malignant neoplasm of upper-outer quadrant of right female breast (principal); Z17.0 Estrogen receptor positive status [ER+]; Z29.89 Encounter for other specified prophylactic measures; R22.32 Localized swelling, mass and lump, left upper limb; I42.7 Cardiomyopathy due to drug and external agent
CPT/HCPCS: 76882; 93306; 93356

== ENCOUNTER 2023-09-26 12:56 | Outpatient (OUT) | payer OTHER, MEDICARE, SELFPAY ==
--- NOTE | 2023-09-26 13:41 | US_ITS ---
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 FINDINGS: In the region of the patient's palpable abnormality, right axilla ultrasound was performed. The technologist measured and labeled 2 focal areas of hyperechogenicity measuring 0.7 x 0.6 x 0.4 cm and 0.6 x 0.4 x 0.3 cm. These lesions are both oval in shape well-circumscribed with smooth borders. US/US extremity nonvascular LT IMPRESSION: 2 indeterminate hyperechogenic right axillary lesions measuring 0.7 and 0.6 cm. In light of the patient's invasive ductal carcinoma, metastatic disease to lymph nodes should be considered Electronically authenticated by: UGO DUFFY Date: 09/26/2023 14:32
== END 2023-09-26 12:57 | disposition home or self-care (01) ==
LOC: US 12:56
PROVIDERS: PCP Family Medicine; Visit Provider Nurse Practitioner Family
DX: C50.411 Malignant neoplasm of upper-outer quadrant of right female breast (principal); Z17.0 Estrogen receptor positive status [ER+]; Z29.89 Encounter for other specified prophylactic measures; R22.32 Localized swelling, mass and lump, left upper limb
CPT/HCPCS: 76882

== ENCOUNTER 2023-11-30 09:44 | Outpatient (RCR) | payer OTHER, MEDICARE, SELFPAY | END 2023-12-01 17:09 | disposition home or self-care (01) | LOC: PT 09:44 | PROVIDERS: PCP Family Medicine; Visit Provider Family Medicine | DX: R42 Dizziness and giddiness (principal) | CPT/HCPCS: 97110; 97161 ==

== ENCOUNTER 2024-05-10 10:30 | Outpatient (OUT) | payer OTHER, MEDICARE, SELFPAY ==
--- NOTE | 2024-05-10 10:46 | XR_ITS ---
The [address] [address] Patient Name: BEHZAD ENRIQUEZ MRN: [id number] date: 1955 Sex: F Assigned Patient Location: [facility] Current Patient Location: Accession/Order Number: [id number] Exam Date: 05/10/2024 11:03 Report Date: 05/12/2024 06:52 At the request of: MAKEDA OSEI Procedure: XR wrist LT min 3V PROCEDURE: XR wrist LT min 3V HISTORY: De Quervain's Disease ; first metacarpal pain and forearm pain since falling 4 weeks ago COMPARISON: None. FINDINGS: BONES:No fracture, acute abnormality, or significant arthropathy. SOFT TISSUES:No visible soft tissue swelling. EFFUSION:None visible. OTHER: Negative. XR/XR wrist LT min 3V IMPRESSION: 1. No acute bone abnormality or significant degenerative joint disease to account for patient's symptoms. Electronically authenticated by: DANIEL FINNEY Date: 05/12/2024 06:52
== END 2024-05-10 10:31 | disposition home or self-care (01) ==
LOC: RAD 10:33
PROVIDERS: PCP Family Medicine; Visit Provider Family Medicine
DX: M65.4 Radial styloid tenosynovitis [de Quervain] (principal)
CPT/HCPCS: 73110

== ENCOUNTER 2024-08-06 11:17 | Outpatient (OUT) | payer OTHER, MEDICARE, SELFPAY ==
--- NOTE | 2024-08-06 | XR_ITS ---
The [place] [id number] Patient Name: BEHZAD ENRIQUEZ MRN: [id number] date: 1955 Sex: F Assigned Patient Location: Current Patient Location: Accession/Order Number: [id number] Exam Date: 08/06/2024 13:21 Report Date: 08/06/2024 13:22 At the request of: DANIEL MENDEZ MD Procedure: XR wrist LT min 3V LEFT WRIST - 3 views CLINICAL HISTORY: Chronic left wrist pain for 4 months. COMPARISON: Left wrist 05/10/2024 FINDINGS: No focal soft tissue abnormality. No acute bony process is seen. Mild degenerative changes of the carpus predominantly at the scaphotrapezial joint without bony erosions. XR/XR wrist LT min 3V IMPRESSION: MILD DEGENERATIVE CHANGES OF THE CARPUS WITHOUT ACUTE BONY PROCESS. Impression dictated by: Adam Araya Jr., DKelseaOKelsea08/06/2024 1:22 PM Dictation Location: [place] [address] Electronically authenticated by: [id number] Y Date: 08/06/2024 13:22
== END 2024-08-06 11:18 | disposition home or self-care (01) ==
LOC: EC 11:17
PROVIDERS: PCP Family Medicine; Visit Provider Orthopaedic Surgery
DX: M25.532 Pain in left wrist (principal)
CPT/HCPCS: 73110

== ENCOUNTER 2025-02-19 08:38 | Outpatient (OUT) | payer MEDICARE, SELFPAY ==
--- OUTSIDE RECORDS SUMMARY | 2025-02-18 13:12 | XMS_ITS ---
Author Name Auto Generated Organization OHIP Care Team Providers Care French Professor Name Role Phone ARNAUD JENSEN Attending Unavailable SOFIA JOHNS Attending Unavailable TIM HIDALGO Attending Unavailable TIM HIDALGO Attending Unavailable TIM HIDALGO Attending Unavailable Hoy, Makeda M Primary Care Unavailable Asaad, Imad Attending Unavailable Asaad, Imad Admitting Unavailable VITALYGEORGIA Referring Unavailable HOY, MAKEDA M Primary Care Unavailable PROVIDER, UNKNOWN Referring Unavailable HOY, MAKEDA M Primary Care Unavailable GEORGIA ALCARAZ Referring Unavailable HOY, MAKEDA M Primary Care Unavailable HOY, MAKEDA M Primary Care Unavailable HOY, MAKEDA M Primary Care Unavailable SELF Referring Unavailable PAULO SINGH Attending Unavailable HOY, MAKEDA M Primary Care Unavailable HOY, MAKEDA M Referring Unavailable HOY, MAKEDA M Primary Care Unavailable HOY, MAKEDA M Primary Care Unavailable PAULO SINGH Attending Unavailable HOY, MAKEDA M Primary Care Unavailable SELF Referring Unavailable ABISAI JOHN Attending Unavailable HOY, MAKEDA M Primary Care Unavailable SELF Referring Unavailable SUSANA MORALES Attending Unavailable HOY, MAKEDA M Primary Care Unavailable ABHYANKAR, PAULO Referring Unavailable HOY, MAKEDA M Primary Care Unavailable ADAIR ELAINE Attending Unavailable HOY, MAKEDA M Primary Care Unavailable SELF Referring Unavailable ABHYANKAR, PAULO Attending Unavailable HOY, MAKEDA M Primary Care Unavailable ABHYANKAR, PAULO Referring Unavailable SELF Referring Unavailable HOY, MAKEDA M Primary Care Unavailable ABHYANKAR, PAULO Referring Unavailable HOY, MAKEDA M Primary Care Unavailable ABHYANKAR, PAULO Referring Unavailable ABHYANKAR, PAULO Attending Unavailable HOY, MAKEDA M Primary Care Unavailable ABHYANKAR, PAULO Referring Unavailable HOY, MAKEDA M Primary Care Unavailable ROSALBA REYNOSO Attending Unavailable HOY, MAKEDA M Primary Care Unavailable HOY, MAKEDA M Referring Unavailable HOY, MAKEDA M Referring Unavailable HOY, MAKEDA M Primary Care Unavailable ABHYANKAR, PAULO Referring Unavailable HOY, MAKEDA M Primary Care Unavailable HOY, MAKEDA M Primary Care Unavailable ADAIR ELAINE Referring Unavailable ROSALBA REYNOSO Referring Unavailable ROSALBA REYNOSO Attending Unavailable HOY, MAKEDA M Primary Care Unavailable HOY, MAKEDA M Primary Care Unavailable SELF Referring Unavailable SUSANA MORALES Attending Unavailable Jt BRASWELL Attending Unavailable Hoy, Makeda Referring Unavailable JAYNA GOLDMAN Attending Unavailable PROBLEMS DATE TYPE CONDITION / CODE ATTENDING STATUS [facility] 04/29/2023 Active Blood glucose elevated / R73.9(ICD-10) NA Active [facility] 02/18/2025 Active Routine general medical examination at a health care facility / Z00.00(ICD-10) NA Active [facility] 02/18/2025 Active Vitamin D defici ency / E55.9(ICD-10) NA Active [facility] 02/18/2025 Active Screening for li pid disorders / Z13.220(ICD-10) NA Active [facility] 02/18/2025 Active Hypothyroidism, unspecified type / E03.9(ICD-10) NA Active [facility] 02/18/2025 Active Iron deficiency anemia, unspecified iron deficiency anemia type / D50.9(ICD-10) NA Active [facility] 11/20/2024 Active MGUS (monoclonal gammopathy of unknown significance) / D47.2(ICD-10) ADAIR ELAINE Active [facility] 02/21/2023 Active Malignant neopla sm of upper-outer quadrant of right breast in female, estrogen receptor positive (HCC) / C50.411(ICD-10) NA [facility] 02/21/2023 Active Malignant neopla sm of upper-outer quadrant of right breast in female, estrogen receptor positive (HCC) / Z17.0(ICD-10) NA [facility] 09/20/2024 Active Abnormal mammogr am / R92.8(ICD-10) ROSALBA REYNOSO Active [facility] 04/29/2023 Active Immunotherapy / Z29.89(ICD-10) [facility] 09/11/2024 Active Thyroid nodule / E04.1(ICD-10) [facility] 09/11/2024 Active Abnormal blood chemistry / R79.9(ICD-10) [facility] 09/11/2024 Active Other fatigue / R53.83(ICD-10) [facility] 09/25/2024 Active Postural orthost atic tachycardia syndrome (POTS) / G90.A(ICD-10) SUSANA MORALES [facility] 09/25/2024 Active Spinal stenosis of lumbar region, unspecified whether neurogenic claudication present / M48.061(ICD-10) SUSANA MORALES [facility] 09/25/2024 Active Spinal stenosis, cervical region / M48.02(ICD-10) SUSANA MORALES [facility] 09/25/2024 Active Personal history of malignant neoplasm of breast / Z85.3(ICD-10) SUSANA MORALES [facility] 09/25/2024 Active Abnormality of g ait and mobility / R26.9(ICD-10) [facility] 09/25/2024 Active Disturbance of s kin sensation / R20.9(ICD-10) SUSANA MORALES [facility] 09/25/2024 Active Neuropathic pain / M79.2(ICD-10) SUSANA MORALES [facility] 09/25/2024 Active Chemotherapy-ind uced neuropathy (HCC) / G62.0(ICD-10) SUSANA MORALES [facility] 09/25/2024 Active Chemotherapy-ind uced neuropathy (HCC) / T45.1X5A(ICD-10) SUSANA MORALES [facility] 09/25/2024 Active Diabetic polyneuropathy associated with type 2 diabetes mellitus (HCC) / E11.42(ICD-10) SUSANA MORALES [facility] 04/29/2023 Active Malignant neopla sm of central portion of right breast in female, estrogen receptor negative (HCC) / C50.111(ICD-10) [facility] 04/29/2023 Active Malignant neopla sm of central portion of right breast in female, estrogen receptor negative (HCC) / Z17.1(ICD-10) [facility] 08/21/2024 Active Triple negative breast cancer (HCC) / C50.919(ICD-10) [facility] 08/21/2024 Active Triple negative breast cancer (HCC) / Z17.421(ICD-10) [facility] 08/21/2024 Active Abnormal mammogr am of right breast / R92.8(ICD-10) [facility] 08/21/2024 Active Abnormal mammogr am of left breast / R92.8(ICD-10) [facility] 06/07/2024 Admitting Diagnosis Follow-up / [id number]() JAYNA GOLDMAN Active [facility] 03/14/2024 Active Abnormal finding on radiological examination of breast / R92.8(ICD-10) [facility] PROCEDURES No Procedure Records Found RESULTS CBC W AUTO DIFF BLD Collected: 02/18/2025 1:[address] atus: F Source: [facility] Order Comment: Specimen Type : BLOOD SPECIMEN Ordering Facility: [facility] Address: [address] [place] [address] TYPE CODE TESTS RESULT OUT OF RANGE REFERENCE UNITS LAB 6690-2(LOINC) WBC # Bld Auto 7.48 3.70-11.00 k/uL LAB 789-8(LOINC) RBC # Bld Auto 4.28 3.90-5.20 m/ uL LAB 718-7([facility]) Hgb Bld-mCnc 12.0 11.5-15.5 g/dL LAB 4544-3([facility]) Hct VFr Bld Auto 36.1 36.0-46.0 % LAB 787-2([facility]) MCV RBC Auto 84.3 80.0-100.0 fL LAB 785-6([facility]) MCH RBC Qn Auto 28.0 26.0-34.0 p g LAB 786-4([facility]) MCHC RBC Auto-mCnc 33.2 30.5-36.0 g/dL LAB 21428-6([facility]) RDW RBC-Rto 13.8 11.5-15.0 % LAB 777-3([facility]) Platelet # Bld Auto 270 150-400 k/uL LAB 96612-2([facility]) PMV Bld Auto 9.2 9.0-12.7 fL LAB 770-8([facility]) Neutrophils/leuk NFr Bld Auto 57.2 % LAB 751-8([facility]) Neutrophils # Bld Auto 4.28 1.45-7.50 k/uL LAB 736-9([facility]) Lymphocytes/leuk NFr Bld Auto 34.1 % LAB 731-0([facility]) Lymphocytes # Bld Auto 2.55 1.00-4.00 k/uL LAB 5905-5([facility]) Monocytes/leuk NFr Bld Auto 6.6 % LAB 742-7([facility]) Monocytes # Bld Auto 0.49 <0.87 k/uL LAB 713-8([facility]) Eosinophil/leuk NFr Bld Auto 1.3 % LAB 711-2([facility]) Eosinophil # Bld Auto 0.10 <0.46 k/uL LAB 706-2([facility]) Basophils/leuk NFr Bld Auto 0.4 % LAB 704-7([facility]) Basophils # Bld Auto 0.03 <0.11 k/uL LAB 24201-7([facility]) Imm Granulocytes/dominga k NFr Bld Auto 0.4 % LAB 35981-2([facility]) Imm Granulocytes # Bld Auto 0.03 <0.10 k/uL LAB 47555-2([facility]) nRBC/100 WBC Bld-Rto 0.0 /100 WBC LAB 771-6(LOINC) nRBC # Bld Auto <0.01 <0.01 k/u L LAB 43650-5(LOINC) Differential method Bld Auto Performed By: #### [id number] # ### [facility] CLIA [id number] [address] [place] [id number] DEPRECATED HGB A1C BLD Collected: 02/18 1:42 PM Status: F Source: [facility] Comment: Specimen Type : BLOOD SPECIMEN Ordering Facility: [facility] Address: [address] [place] [address] TYPE CODE TESTS RESULT OUT OF RANGE REFERENCE UNITS LAB 4548-4(LOINC) HbA1c MFr Bld 7.7 High 4.3-5.6 % Result Comment: [place] [employer] guidelines indicate that patients with HgbA1c in the range 5.7-6.4% are at increased risk for development of diabetes, and intervention by lifestyle modification may be beneficial. HgbA1c greater or equal to 6.5% is considered diagnostic of diabetes. LAB 00536-1(LOINC) Est. average glucose Bld gHb Est-mCnc 174 mg/dL Result Comment: eAG: (Estima holley average glucose) is a calculated value from HgbA1c and is sales representative womens health of the average blood glucose level in the last 2-3 month period. Performed By: #### [id number] # ### [facility] CLIA [id number] [address] [place] [address] [place] IMMUNOGLOBULINS,IGG,IGA,IGM Collected: 02/18/2025 1:42 PM Status: F Source: [facility] Comment: Specimen Type : BLOOD SPECIMEN Ordering Facility: [facility] Address: [address] [place] [address] TYPE CODE TESTS RESULT OUT OF RANGE REFERENCE UNITS LAB 2465-3(LOINC ) IgG SerPl-mCn c 942 218-3354 mg/dL LAB 2458-8(LOINC ) IgA SerPl-mCn c 232 70-400 mg/dL LAB 2472-9(LOINC ) IgM SerPl-mCn c 269 High 40-230 mg/dL Performed By: #### SERIMM ## ## [facility] CLIA [id number] [address] [place] [address] [place] PROGRESS Observed: 11/20/2024 1:05 PM Status: COMPLETED Source: [facility] HNO ID: [id number] Author: ADAIR ELAINE APRN.SPORTS PHYSIOLOGIST Service: ? 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 Following additional imaging, including MRI breast bilateral, CT CAP, echocardiogram she will be ready for initiation of neoadjuvant chemotherapy with immunotherapy. Preceding this the patient desired to have an opinion with one of our [facility] breast surgeons and may need lymph node sampling prior to start of therapy. Given TNBCa stage IIA high risk disease, will proceed with neoadjuvant systemic therapy. Neoadjuvant treatment with Keynote 512 - MRI, 4 cycles keytruda Carboplatin + taxol - MRI - 4 cycles keytruda AC MRI then surgery. Her genetic testing was negative. Appears to have good response with 2 cycles of therapy on examination of right breast. Completed Keytruda in February 2024 and has had right lumpectomy mid-October 2023. In October 2023, She was found to have imaging showing an abnormality that will need biopsied in the right breast that was a possible recurrence but turned out benign. She is seeing neurology for fatigue as well as neuropathy. She was found to have an M-spike. Will workup further. In the meanwhile, will need to aggressively manage her sugars. PLAN: Scheduled for mammogram 02/20/2025 M-protein 11/14/2024 - 0.07 Labs with port in 1 week prior to RV RTC in 3 months HPI: CASE HISTORY: Reverse Chronological Order 09/11/2024 - M-protein is present [place]: 20.8, Lambda: 20.3, K/L Ratio: 1.02 08/21/2024 - Bilateral Diagnostic Mammogram: Finding 1: Stable calcifications in the lateral left breast are probably benign. Follow-up with diagnostic mammogram is recommended in 6 months. Finding 2: The asymmetry in the upper outer quadrant of the right breast is benign. BI-RADS Category 3: Probably Benign 05/04/2024 - US Thyroid/Parathyroid: Thyroid nodule(s) present is/are clinically insignificant. No surveillance is advised. 03/14/2024 - Breast, right, at 11:00, 4 cm from the nipple, mass, Q clip, ultrasound-guided core biopsy: Benign breast parenchyma with markedly dense stromal fibrosis. Rare microcalcifications are present within benign breast. 02/21/2024 - Diagnostic Mammogram AND Ultrasound: Mammogram: Finding 1: Irregular mass in the right breast is suspicious of malignancy. An ultrasound guided biopsy is recommended. Findings were discussed with the patient at the time of examination. Finding 2: Calcifications in the left breast are probably benign. Follow-up in 6 months is recommended. Finding 3: Biopsy marker clips in both breasts are benign. BI-RADS Category 4: Suspicious Ultrasound: Finding 1: Ultrasound demonstrates an irregular mass measuring 1.0 x 0.8 x 0.9cm in the right breast at 11 o'clock located 4 cm from the nipple. Internal echotexture is hypoechoic. Color flow imaging demonstrates vascularity is not present. The ipsilateral axilla was surveyed, and no abnormal lymph nodes were visible. 12/21/2023-01/19/2024 - 20 fractions of radiation to right breast 11/02/2023 - Right breast lumpectomy: Dr. Meaghan Parkinson Right axillary sentinel lymph node, excision: - One lymph node, negative for carcinoma (0/1). B. Right breast, lumpectomy: - Residual invasive ductal carcinoma with treatment effect, see comment and synoptic report. - Prior biopsy site, biopsy clip, and Marianela shipping processor device. C, D, E, F, G, H. Right breast, multiple margins, excision: - The final inked margin is negative for carcinoma. ER-, CO-, HER2- 10/27/2023-03/08/2024 - 4 cycles single agent Keytruda 400mg q 6 weeks 10/26/2023 - Infrared activated electromagnetic reflector device placement for the mass in the right breast at 12 o'clock middle depth 5 cm from the nipple 10/12/2023 - MRI Breast: Continued interval treatment response to neoadjuvant systemic therapy of the known biopsy-proven malignancy in the 12:00 right breast, now measuring 8 mm (with previous serial measurements as above). No suspicious areas of enhancement in the left breast. No lymphadenopathy. Mild motion limitations. 09/26/2023 - US Extremity Nonvascular LT: 2 indeterminate hyperechogenic left axillary lesions measuring 0.7 and 0.6 cm. In light of the patient's invasive ductal carcinoma, metastatic disease to lymph nodes should be considered. 07/07/2023-09/15/2023 - 4 cycles A/C + Keytruda q 21 days 07/01/2023 - MRI Breast: BI-RADS 6 - Known Malignancy. Right Breast: 1.5 cm irregular enhancing mass in the right breast at 12:00 anterior depth corresponds with patient's known site of malignancy. This previously measured 2.2 cm in maximum dimension. 03/17/2023-06/10/2023 - 4 cycles days 1, 8, 15 q 21 days Carboplatin / Taxol / Keytruda 03/15/2023 - MRI Breast: 2.2 cm spiculated enhancing mass in the 12:00 anterior depth-middle depth right breast at site of biopsy-proven malignancy. No other definite suspicious areas of enhancement in either breast. No lymphadenopathy. 03/10/2023 - USG breast bx 2nd right breast lesion: - Negative for additional malignancy 03/09/2023 - CT CAP: Negative for metastatic disease. Hepatic steatosis. 01/20/2023 - Right breast mass biopsy: - Invasive ductal carcinoma grade 3 ER 0, CO 0 HER2 1+ by IHC negative. 01/20/2023 - Post-biopsy diagnostic mammography metallic marker placed in targeted location within the upper outer quadrant right breast. 01/17/2023 - Diagnostic Mammography: Right breast category 4 suspicious for malignancy US demonstrates bilobed hypoechoic mass with acoustic shadowing smaller component measuring 5.9 mm connected to a larger deeper 8.3 mm lesion with a connecting stalk measuring 2.3 mm. 12/2022 - Mid December felt a lump in her right breast 07/2022 - Normal mammogram Updated Visit, November,: Patient with a history of type 2 diabetes mellitus and Sal[place] virus (EBV) presents with recent exacerbation of chronic symptoms triggered by stress. Patient reports a longstanding pattern of severe fatigue and anorexia following stressful events, which has become more frequent and prolonged with age. The most recent episode began approximately two weeks ago after a minor stressor and has been the longest to date. Symptoms include profound weakness, inability to eat or drink, and being bedridden for 1-2 days. She notes that these episodes typically resolve within a few days, but this time recovery has been slower. About a week into the current episode, she began experiencing new symptoms of lymphadenopathy and severe night sweats, soaking her sheets and pillows. She also describes episodes of altered mental status, including vivid hallucinations and intrusive thoughts, without associated fever. She reports significant weight loss of 13-14 pounds due to decreased oral intake. Additionally, she recently cracked a tooth, resulting in facial numbness, and underwent a root canal yesterday. She initially feared a stroke due to the numbness. Patient has been managing her diabetes with dietary modifications, avoiding sugar and gluten. Recent labs from last show normal WBC count, hemoglobin at 12 g/dL, normal platelet count, normal protein and albumin levels, normal calcium, liver enzymes, kidney function, and sodium levels. Potassium is slightly lower than her baseline but still within normal limits. Blood glucose was 195 mg/dL, non-fasting. M protein level was 0.07 g/dL. She denies any recent diarrhea, with only one episode after consuming fruit. She has been drinking sweet tea for comfort and to stimulate her appetite, as milk and orange juice have been poorly tolerated. She is currently consuming minimal food, including gluten-free Cheerios, and is not following a strict gluten-free diet due to her limited intake. Updated Visit, October 17, 2024: New Problem Jyoti Hdz returns today with Alex for a new problem. Labs completed last month per neurology revealed a positive m-spike and elevated kappa light chain. I suspect these abnormal results are due to inflammation. Inflammation may be caused with uncontrolled diabetes. We discussed some diet changes that can help decrease her glucose/A1c. She reports fatigue is progressing. Will consider seeing an infectious disease specialist for EBV. Updated Visit, September 11, 2024: Jyoti Hdz returns for a follow up. Recent diagnostic mammogram showed stable benign calcifications in the left breast and a benign asymmetry in the right breast. She denies any changes to the breast, pain is unchanged. She has a follow up with Dr. Reynoso next week, will defer my exam today. She complains of fatigue today due to EBV. But could also be due to weight gain. 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 Updated Visit, May 31, 2024: Jyoti Hdz returns with her , Alex. She had a biopsy of the right breast in 02/2024 - results benign. Her annual ultrasound of the thyroid confirmed clinically insignificant nodules. She complains of decreased stamina and bilateral foot neuropathy - treats with gabapentin 300mg TID. Will continue to follow up q 12 weeks. Chaperoned Breast Exam noted below. Updated Visit, March 08, 2024: Jyoti Hdz returns for her final Keytruda infusion. She had a mammogram and ultrasound on 02/20, an irregular mass that is suspicious for malignancy was seen in the right breast. She has a biopsy scheduled for next week. She reports she is still fatigued due to radiation. She had a syncopal episode recently. Updated Visit, January 26, 2024: Jyoti Hdz returns today for Keytruda. She completed about 4 weeks of radiation to the right breast. She endorses expected skin changes, although says it is improving. She is also experiencing fatigue. She also mentions she is overdue for an annual thyroid ultrasound, at [facility], to monitor nodules - will order at next visit. Deferred breast exam as Dr. John had recently examined her. Updated Visit, November 18, 2023: Had her right breast surgery and did very well. Pathology with responsive tumor and LN negative. TNBC. Some neuropathy continues. Breast is hard and had some post-op cellulitis that has cleared. Updated Visit, October 27, 2023: Jyoti Hdz returns today with Alex. MRI breast shows continued response to treatment. She developed pustules w/ itching on her arms, chest, AND legs and tingling/burning in her lips. She wonders if this was an allergic reaction so has discontinued some of her medications. She is wearing a cervical collar due to a pinched nerve in her neck. She complains of severe pain and occasional dizziness. She is unable to have an MRI for her neck since she cannot lay on her chest due to her upcoming lumpectomy. Updated Visit, September 08, 2023: Severe cold and sore throat last week causing her to cancel US. Alex called me and I had recommended ER for severe teeth and throat pain. She ended up not going. Continues to have numerous complaints of body aches, anxiety etc. But no definitive illness. Symptoms have resolved, but she would like another week to finish her recovery. Chaperoned Breast Exam noted below. Updated Visit, August 18, 2023: Jyoti Thao returns for follow-up and continued treatment. Overall, she is tolerating treatment well. She has been experiencing some tooth sensitivity. She has been using a TENS unit for her foot neuropathy. She denies any fevers, chills, night sweats or signs/symptoms of infection. No bleeding or abnormal bruising. She wishes to proceed with treatment as planned. Updated Visit, July 28, 2023: Jyoti Thao returns for follow-up and continued treatment. Overall, she is tolerating treatment well. She denies cough, shortness of breath and other pulmonary complaints. She denies any skin rashes. 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 She complains of feeling tired with treatment. She denies fevers, chills, night sweats and signs/symptoms of infection. No bleeding or abnormal bruising. Today she expresses some concerns about having her teeth cleaned. Updated Visit, July 07, 2023: Jyoti Hdz returns today with Alex. She has had a cold for a couple weeks, is finally now getting over it. She notes she will start wearing a mask when she goes out. Recent MRI shows response to treatment. Her fingernails and toenails are turning black - side effect of chemo. Also reports neuropathy in her feet and fingertips. Proceeding with C5 today. Chaperoned Breast Exam noted below. Updated Visit, May 27, 2023: Jyoti Hdz returns with Alex for follow up and to begin C4 of her treatment. She reports that the hydration has been helping. I encouraged her not to hesitate to reach out if she feels she needs more fluids. We reviewed her labs, which show decreases in blood counts so she is more anemic today. Her chemistries look great. She has not done a self-breast exam since I last saw her, we will conduct another prior to starting Adriamycin. I also will order a breast MRI. She will need education for the new regimen. She reports the only thing bothering her right now is some mild neuropathy in her toes, and some random brief shooting pains in her legs and feet. Her BGs have been running on average in the 150s-160s, with some days in the 130s. We briefly discussed possible timeline for finishing out her treatment course and what she will decide for her surgery. Updated Visit, April 29, 2023: Jyoti Hdz returns today with Alex for follow up. She is having a [...] a lot of fluids. Has seen the operation research analyst. Even though she does not necessarily feel nauseous, her stomach pain may be a different manifestation of nausea, so she should consider taking her antiemetic anyway when she needs to eat. She is also having bowel troubles with using the bathroom, she is having frequent diarrhea. Tried Imodium but this madeher very constipated for several days and she [...] we should hold treatment for a week. Chaperoned Breast Exam noted below. Updated Visit, April 08, 2023: Jyoti Hdz returns today for follow up accompanied by her Alex. She has lost the rest of her [...] her that I see early response already. Chaperoned Breast Exam noted below. Updated Visit, April 04, 2023: Jyoti Thao received cycle 1 day 1 carboplatin, Taxol [...] Updated Visit, March 17, 2023: Here with Alex. Is Tu Cruz's mother. Ready for neoadjuvant treatment given high risk disease. Reviewed MRI, biopsy of second spot was negative. Thoroughly reviewed patients treatment plan. Initial Visit, February 21, 2023: Jyoti Thao presents today Hematology and Oncology evaluation. She is a 67 year old female who has a history of POTS syndrome and is adopted who is [employer] genetic testing is negative. She gives a story of having a normal mammogram in July 2022 and subsequently felt a lump in mid December 2022. She underwent imaging in [facility] and then had a biopsy that [...] this interferes with her plans to buy [employer] in [place] [facility] and move there this year with her Tim. Despite high risk disease and the need for a protracted course of neoadjuvant chemotherapy according to keynote 512, I think she will be able to get to the [employer] multiple times. I reassured her that she appears to have curable disease and indeed she felt better. Although her work-up was initiated locally, she would like to transition her care to [facility] and I will make appropriate referrals. M grandmother Lucio's Mother stroke Birthfather?? Heart attack in 70s REVIEW OF SYSTEMS Per HPI and otherwise negative by full review of organ systems. ECOG PERFORMANCE STATUS: 0 PHYSICAL EXAMINATION: Vitals: BP 107/73 Pulse 82 Temp (Src) 97.4 (Temporal) Resp 18 Wt 0 lb (0.0kg) SpO2 99% There is no height or weight on file to calculate BSA. Exam limited to gross visualization where appropriate. Gen.: This is an age-appropriate patient in no acute distress. Head: Appears atraumatic with no visible lesions. Eyes: Pupils equally round and reactive to light, extraocular muscles are intact. Neck: Supple. Respiratory: Appears to be respiring comfortably. Neurologic: Nonfocal to gross visualization. Alert and oriented ?3. Psychiatric: No evidence of inappropriate depression but remains highly anxious. Skin: Visible areas of skin without lesions, wounds or petechiae. Erythematous blanching rash on her forearms and around the port on her chest, will monitor. Prior exams for reference: Chaperoned Breast Exam May 31, 2024 (Sara Clinton) : Right breast shows radiation changes and slight lymphedema, otherwise a normal exam, Left breast is normal to palpation. [place] exam is negative bilaterally. Chaperoned Breast Exam September 08, 2023 (Tesha Evangelista) : Right breast is tender but no discreet masses, Left breast is mildly tender and normal. [place] exam is negative bilaterally. Chaperoned Breast Exam July 07, 2023 (Sara Clinton) : Right breast is tender but no discreet masses, Left breast is mildly tender and normal. [place] exam is negative bilaterally. Chaperoned Breast Exam April 29, 2023 (Sara Clinton) : Right breast shows continued improvement, now lesion measure 0.5 cm, Left breast was not examined. Chaperoned Breast Exam April 08, 2023 (Evan Lambert): Right breast mass at 12 o' clock just above the NAC definitely feels smaller (approx. 1.5 cm), Left breast is normal. Chaperoned Breast Exam February 21, 2023 (Evan Lambert): Fairly tender right breast with [...] See Comments Aller-Chlor Deconge* Unknown Chlorpheniramine-Ps* Unknown Uzp-Wdvsazkke-Xhrmk* Itching Decongest Multi-Act* Other: See Comments Diazepam Other: See Comments sick-headache Diphenhydramine Intolerance Levofloxacin Intolerance Nalbuphine Rash Progesterone Other: See Comments, GI Upset Speeds up metabolism Weight gain and voice hoarse Promethazine Unknown Pseudoephedrine Other: See Comments Other Reaction(s): Hyperactive, severe stimulation Other Reaction(s): Intolerance ANY Decongestant-Hyperactive Pseudoephedrine-Dm-* Intolerance ANY Decongestant-Hyperactive Ddypykn-Khh-Bvi Red* Other: See Comments Other Reaction(s): Unknown Tizanidine Hcl Itching, Other: See Comments Morphine Unknown, GI Upset, Vomiting, Other: See Comments Migraine Tramadol Itching, Unknown Tooth sensitivity Only tolerates low dose Only tolerates low dose MEDICATIONS: amoxicillin (AMOXIL) 875 mg tablet Take 1 tablet every 12 hours by oral route for 7 days. Alpha Lipoic Acid 600 mg cap Take 1 capsule by mouth once daily. gabapentin (NEURONTIN) 300 mg capsule Take 1 capsule by mouth three times a day. metFORMIN (GLUCOPHAGE) 500 mg tablet Take 1 tablet by mouth every 12 hours. ondansetron (ZOFRAN) 8 mg tablet Take 1 tablet by mouth every 8 hours as needed for nausea/vomiting. ibuprofen (MOTRIN) 600 mg tablet Take 400 mg by mouth at bedtime as needed. meclizine (ANTIVERT) 25 mg tab TAKE 1-2 TABLETS BY MOUTH FOUR TIMES A DAY NEEDED FOR DIZZINESS pantoprazole DR (PROTONIX) 40 mg tablet Take 40 mg by mouth once daily. scopolamine (TRANSDERM-SCOP) patch 1.5 mg/72 hr (delivers 1 mg over 3 days) Apply 1 Patch as directed every 72 hours as needed. simvastatin (ZOCOR) 10 mg tablet Take 10 mg by mouth daily at bedtime. triamcinolone acetonide (KENALOG) 0.1 % cream Apply 1 application to affected area once daily. eletriptan (RELPAX) 40 mg tablet TAKE 1 TABLET BY MOUTH AT ONSET OF MODERATE TO SEVERE MIGRAINE. MAY REPEAT DOSE IN 2 HOURS. MAX OF 2 DOSES IN 24 HOURS, 2 DAYS A WEEK levothyroxine (SYNTHROID) 50 mcg tablet Take 50 mcg by mouth once daily. blood sugar diagnostic (LOGIDOC-SolutionsTOUCH VERIO TEST STRIPS) test strip 1 Strip once daily. LABORATORY VALUES: WBC (k/uL) Date Value 11/14/2024 6.85 RBC (m/uL) Date Value 11/14/2024 4.28 Hemoglobin (g/dL) Date Value 11/14/2024 12.0 Hematocrit (%) Date Value 11/14/2024 35.8 (L) MCV (fL) Date Value 11/14/2024 83.6 MCH (pg) Date Value 11/14/2024 28.0 MCHC (g/dL) Date Value 11/14/2024 33.5 RDW-CV (%) Date Value 11/14/2024 13.8 Platelet Count (k/uL) Date Value 11/14/2024 212 MPV (fL) Date Value 11/14/2024 9.6 Glucose (mg/dL) Date Value 11/14/2024 195 (H) BUN (mg/dL) Date Value 11/14/2024 16 Creatinine (mg/dL) Date Value 11/14/2024 0.79 Sodium (mmol/L) Date Value 11/14/2024 136 Potassium (mmol/L) Date Value 11/14/2024 3.9 Chloride (mmol/L) Date Value 11/14/2024 101 CO2 (mmol/L) Date Value 11/14/2024 25 Protein, Total (g/dL) Date Value 11/14/2024 6.9 11/14/2024 6.4 Albumin (g/dL) Date Value 11/14/2024 4.1 Calcium, Total (mg/dL) Date Value 11/14/2024 9.5 Alkaline Phosphatase (U/L) Date Value 11/14/2024 117 Bilirubin, Total (mg/dL) Date Value 11/14/2024 0.3 AST (U/L) Date Value 11/14/2024 25 ALT (U/L) Date Value 11/14/2024 35 Breast CA 15-3 (U/mL) Date Value 10/17/2024 26.5 09/11/2024 28.4 11/18/2023 30.4 03/17/2023 25.5 DIAGNOSIS: (D47.2) MGUS (monoclonal gammopathy of unknown significance) (primary encounter diagnosis) (C50.411, Z17.0) Malignant neoplasm of upper-outer quadrant of right breast in female, estrogen receptor positive (HCC) PAST MEDICAL HISTORY Diagnosis Date Anemia Arthritis Breast cancer (HCC) Diabetes (HCC) Diverticulitis of colon Salty Bolton virus infection Essential (primary) hypertension Fibrocystic breast GERD (gastroesophageal reflux disease) Hyperlipidemia Hypothyroidism IBS (irritable bowel syndrome) Malignant neoplasm of upper-outer quadrant of right breast in female, estrogen receptor positive (HCC) 02/21/2023 Migraines Nausea without vomiting 04/30/2021 PONV (postoperative nausea and vomiting) 10/21/2023 POTS (postural orthostatic tachycardia syndrome) Small bowel [...] Discectomy PAST SURGICAL HISTORY OF Mass excision right axilla (benign) PAST SURGICAL HISTORY OF Small bowel resection SINUS SURGERY HX SMALL INTESTINE SURGERY HX TONSILLECTOMY HX UNLISTED STOMACH SURGERY Removal stomach polyps VAGINAL HYSTERECTOMY with appendectomy, Meckel's diverticulectomy Social History Tobacco Use Smoking status: Former Current packs/day: 0.00 Types: Cigarettes Quit date: 2016 Years since quittin.5 Passive exposure: Past Smokeless tobacco: Never Tobacco comments: quit smoking in 2014, on and off, 1/3 ppd at most Vaping Use Vaping status: Never Used Substance Use Topics Alcohol use: Not Currently Comment: rarely Drug use: Never FAMILY HISTORY Adopted: Yes Problem Relation Age of Onset Stroke Mother other (addisons) Maternal Grandmother I spent a total of 30 minutes on the date of the service which included preparing to see the patient, [id number] patient care, completing clinical documentation, obtaining and/or reviewing separately obtained history, performing a medically appropriate examination, counseling and educating the patient/family/caregiver, ordering medications, tests, or procedures, independently interpreting results (not separately reported), and communicating results to the patient/family/caregiver. Adair Elaine APRN.[facility] Hematology and Oncology Services Provided at: [place], [place] CC: Dr. Zeke Joaquin [address] [id number] [address] Makeda Osei [address] [facility] [id number] [address] Rosalba John CNOVSP Observed: 11/20/2024 1:00 PM Status: COMPLETED Source: [facility] Visit (SP) Office ([place]) JYOTI THAO ([id number]) 1955 F Date Time Provider Department 11/20/24 1:00 PM ADAIR ELAINE During your visit today, we recorded the following information about you: Temperature Pulse Respiration Blood pressure 97.4 degrees 82/minute 18/minute 107/73 Adair Elaine APRN.SPORTS PHYSIOLOGIST 11/21/2024 9:04 PM Signed NAME: Jyoti Thao CLINIC NO.: [id number] DATE OF SERVICE: November 20, 2024 (Jaya) Some elements in this clinic note that are critical to medical decision making have been carefully reviewed and included from a prior clinic note dated: October 17, 2024 (Lenny) Referring Provider: Alfa Joaquin Additional Clinicians involved in Jyoti Thao's care: Abisai Chandra DIAGNOSIS: TNBC - right breast ASSESSMENT: 68 year old woman with 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 Following additional imaging, including MRI breast bilateral, CT CAP, echocardiogram she will be ready for initiation of neoadjuvant chemotherapy with immunotherapy. Preceding this the patient desired to have an opinion with one of our [facility] breast surgeons and may need lymph node sampling prior to start of therapy. Given TNBCa stage IIA high risk disease, will proceed with neoadjuvant systemic therapy. Neoadjuvant treatment with Keynote 512 - MRI, 4 cycles keytruda Carboplatin + taxol - MRI - 4 cycles keytruda AC MRI then surgery. Her genetic testing was negative. Appears to have good response with 2 cycles of therapy on examination of right breast. Completed Keytruda in February 2024 and has had right lumpectomy mid-October 2023. In October 2023, She was found to have imaging showing an abnormality that will need biopsied in the right breast that was a possible recurrence but turned out benign. She is seeing neurology for fatigue as well as neuropathy. She was found to have an M-spike. Will workup further. In the meanwhile, will need to aggressively manage her sugars. PLAN: Scheduled for mammogram 02/20/2025 M-protein 11/14/2024 - 0.07 Labs with port in 1 week prior to RV RTC in 3 months - HPI: CASE HISTORY: Reverse Chronological Order 09/11/2024 - M-protein is present [place]: 20.8, Lambda: 20.3, K/L Ratio: 1.02 08/21/2024 - Bilateral Diagnostic Mammogram: Finding 1: Stable calcifications in the lateral left breast are probably benign. Follow-up with diagnostic mammogram is recommended in 6 months. Finding 2: The asymmetry in the upper outer quadrant of the right breast is benign. BI-RADS Category 3: Probably Benign 05/04/2024 - US Thyroid/Parathyroid: Thyroid nodule(s) present is/are clinically insignificant. No surveillance is advised. 03/14/2024 - Breast, right, at 11:00, 4 cm from the nipple, mass, Q clip, ultrasound-guided core biopsy: Benign breast parenchyma with markedly dense stromal fibrosis. Rare microcalcifications are present within benign breast. 02/21/2024 - Diagnostic Mammogram AND Ultrasound: Mammogram: Finding 1: Irregular mass in the right breast is suspicious of malignancy. An ultrasound guided biopsy is recommended. Findings were discussed with the patient at the time of examination. Finding 2: Calcifications in the left breast are probably benign. Follow-up in 6 months is recommended. Finding 3: Biopsy marker clips in both breasts are benign. BI-RADS Category 4: Suspicious Ultrasound: Finding 1: Ultrasound demonstrates an irregular mass measuring 1.0 x 0.8 x 0.9cm in the right breast at 11 o'clock located 4 cm from the nipple. Internal echotexture is hypoechoic. Color flow imaging demonstrates vascularity is not present. The ipsilateral axilla was surveyed, and no abnormal lymph nodes were visible. 12/21/2023-01/19/2024 - 20 fractions of radiation to right breast 11/02/2023 - Right breast lumpectomy: Dr. Reynoso A. Right axillary sentinel lymph node, excision: - One lymph node, negative for carcinoma (0/1). B. Right breast, lumpectomy: - Residual invasive ductal carcinoma with treatment effect, see comment and synoptic report. - Prior biopsy site, biopsy clip, and Marianela shipping processor device. C, D, E, F, G, H. Right breast, multiple margins, excision: - The final inked margin is negative for carcinoma. ER-, CO-, HER2- 10/27/2023-03/08/2024 - 4 cycles single agent Keytruda 400mg q 6 weeks 10/26/2023 - Infrared activated electromagnetic reflector device placement for the mass in the right breast at 12 o'clock middle depth 5 cm from the nipple 10/12/2023 - MRI Breast: Continued interval treatment response to neoadjuvant systemic therapy of the known biopsy-proven malignancy in the 12:00 right breast, now measuring 8 mm (with previous serial measurements as above). No suspicious areas of enhancement in the left breast. No lymphadenopathy. Mild motion limitations. 09/26/2023 - US Extremity Nonvascular LT: 2 indeterminate hyperechogenic left axillary lesions measuring 0.7 and 0.6 cm. In light of the patient's invasive ductal carcinoma, metastatic disease to lymph nodes should be considered. 07/07/2023-09/15/2023 - 4 cycles A/C + Keytruda q 21 days 07/01/2023 - MRI Breast: BI-RADS 6 - Known Malignancy. Right Breast: 1.5 cm irregular enhancing mass in the right breast at 12:00 anterior depth corresponds with patient's known site of malignancy. This previously measured 2.2 cm in maximum dimension. 03/17/2023-06/10/2023 - 4 cycles days 1, 8, 15 q 21 days Carboplatin / Taxol / Keytruda 03/15/2023 - MRI Breast: 2.2 cm spiculated enhancing mass in the 12:00 anterior depth-middle depth right breast at site of biopsy-proven malignancy. No other definite suspicious areas of enhancement in either breast. No lymphadenopathy. 03/10/2023 - USG breast bx 2nd right breast lesion: - Negative for additional malignancy 03/09/2023 - CT CAP: Negative for metastatic disease. Hepatic steatosis. 01/20/2023 - Right breast mass biopsy: - Invasive ductal carcinoma grade 3 ER 0, CO 0 HER2 1+ by IHC negative. 01/20/2023 - Post-biopsy diagnostic mammography metallic marker placed in targeted location within the upper outer quadrant right breast. 01/17/2023 - Diagnostic Mammography: Right breast category 4 suspicious for malignancy US demonstrates bilobed hypoechoic mass with acoustic shadowing smaller component measuring 5.9 mm connected to a larger deeper 8.3 mm lesion with a connecting stalk measuring 2.3 mm. 12/2022 - Mid December felt a lump in her right breast 07/2022 - Normal mammogram Updated Visit, November,: Patient with a history of type 2 diabetes mellitus and Salty-Bol[place] virus (EBV) presents with recent exacerbation of chronic symptoms triggered by stress. Patient reports a longstanding pattern of severe fatigue and anorexia following stressful events, which has become more frequent and prolonged with age. The most recent episode began approximately two weeks ago after a minor stressor and has been the longest to date. Symptoms include profound weakness, inability to eat or drink, and being bedridden for 1-2 days. She notes that these episodes typically resolve within a few days, but this time recovery has been slower. About a week into the current episode, she began experiencing new symptoms of lymphadenopathy and severe night sweats, soaking her sheets and pillows. She also describes episodes of altered mental status, including vivid hallucinations and intrusive thoughts, without associated fever. She reports significant weight loss of 13-14 pounds due to decreased oral intake. Additionally, she recently cracked a tooth, resulting in facial numbness, and underwent a root canal yesterday. She initially feared a stroke due to the numbness. Patient has been managing her diabetes with dietary modifications, avoiding sugar and gluten. Recent labs from last show normal WBC count, hemoglobin at 12 g/dL, normal platelet count, normal protein and albumin levels, normal calcium, liver enzymes, kidney function, and sodium levels. Potassium is slightly lower than her baseline but still within normal limits. Blood glucose was 195 mg/dL, non-fasting. M protein level was 0.07 g/dL. She denies any recent diarrhea, with only one episode after consuming fruit. She has been drinking sweet tea for comfort and to stimulate her appetite, as milk and orange juice have been poorly tolerated. She is currently consuming minimal food, including gluten-free Cheerios, and is not following a strict gluten-free diet due to her limited intake. Updated Visit, October 17, 2024: New Problem Jyoti Hdz returns today with Alex for a new problem. Labs completed last month per neurology revealed a positive m-spike and elevated kappa light chain. I suspect these abnormal results are due to inflammation. Inflammation may be caused with uncontrolled diabetes. We discussed some diet changes that can help decrease her glucose/A1c. She reports fatigue is progressing. Will consider seeing an infectious disease specialist for EBV. Updated Visit, September 11, 2024: Jyoti Hdz returns for a follow up. Recent diagnostic mammogram showed stable benign calcifications in the left breast and a benign asymmetry in the right breast. She denies any changes to the breast, pain is unchanged. She has a follow up with Dr. Reynoso next week, will defer my exam today. She complains of fatigue today due to EBV. But could also be due to weight gain. 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 Updated Visit, May 31, 2024: Jyoti Hdz returns with her , Alex. She had a biopsy of the right breast in 02/2024 - results benign. Her annual ultrasound of the thyroid confirmed clinically insignificant nodules. She complains of decreased stamina and bilateral foot neuropathy - treats with gabapentin 300mg TID. Will continue to follow up q 12 weeks. Chaperoned Breast Exam noted below. Updated Visit, March 08, 2024: Jyoti Hdz returns for her final Keytruda infusion. She had a mammogram and ultrasound on 02/20, an irregular mass that is suspicious for malignancy was seen in the right breast. She has a biopsy scheduled for next week. She reports she is still fatigued due to radiation. She had a syncopal episode recently. Updated Visit, January 26, 2024: Jyoti Hdz returns today for Keytruda. She completed about 4 weeks of radiation to the right breast. She endorses expected skin changes, although says it is improving. She is also experiencing fatigue. She also mentions she is overdue for an annual thyroid ultrasound, at [facility], to monitor nodules - will order at next visit. Deferred breast exam as Dr. John had recently examined her. Updated Visit, November 18, 2023: Had her right breast surgery and did very well. Pathology with responsive tumor and LN negative. TNBC. Some neuropathy continues. Breast is hard and had some post-op cellulitis that has cleared. Updated Visit, October 27, 2023: Jyoti Hdz returns today with Alex. MRI breast shows continued response to treatment. She developed pustules w/ itching on her arms, chest, AND legs and tingling/burning in her lips. She wonders if this was an allergic reaction so has discontinued some of her medications. She is wearing a cervical collar due to a pinched nerve in her neck. She complains of severe pain and occasional dizziness. She is unable to have an MRI for her neck since she cannot lay on her chest due to her upcoming lumpectomy. Updated Visit, September 08, 2023: Severe cold and sore throat last week causing her to cancel US. Alex called me and I had recommended ER for severe teeth and throat pain. She ended up not going. Continues to have numerous complaints of body aches, anxiety etc. But no definitive illness. Symptoms have resolved, but she would like another week to finish her recovery. Chaperoned Breast Exam noted below. Updated Visit, August 18, 2023: Jyoti Thao returns for follow-up and continued treatment. Overall, she is tolerating treatment well. She has been experiencing some tooth sensitivity. She has been using a TENS unit for her foot neuropathy. She denies any fevers, chills, night sweats or signs/symptoms of infection. No bleeding or abnormal bruising. She wishes to proceed with treatment as planned. Updated Visit, July 28, 2023: Jyoti Thao returns for follow-up and continued treatment. Overall, she is tolerating treatment well. She denies cough, shortness of breath and other pulmonary complaints. She denies any skin rashes. 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 She complains of feeling tired with treatment. She denies fevers, chills, night sweats and signs/symptoms of infection. No bleeding or abnormal bruising. Today she expresses some concerns about having her teeth cleaned. Updated Visit, July 07, 2023: Jyoti Hdz returns today with Alex. She has had a cold for a couple weeks, is finally now getting over it. She notes she will start wearing a mask when she goes out. Recent MRI shows response to treatment. Her fingernails and toenails are turning black - side effect of chemo. Also reports neuropathy in her feet and fingertips. Proceeding with C5 today. Chaperoned Breast Exam noted below. Updated Visit, May 27, 2023: Jyoti Hdz returns with Alex for follow up and to begin C4 of her treatment. She reports that the hydration has been helping. I encouraged her not to hesitate to reach out if she feels she needs more fluids. We reviewed her labs, which show decreases in blood counts so she is more anemic today. Her chemistries look great. She has not done a self-breast exam since I last saw her, we will conduct another prior to starting Adriamycin. I also will order a breast MRI. She will need education for the new regimen. She reports the only thing bothering her right now is some mild neuropathy in her toes, and some random brief shooting pains in her legs and feet. Her BGs have been running on average in the 150s-160s, with some days in the 130s. We briefly discussed possible timeline for finishing out her treatment course and what she will decide for her surgery. Updated Visit, April 29, 2023: Jyoti Hdz returns today with Alex for follow up. She is having a [...] a lot of fluids. Has seen the operation research analyst. Even though she does not necessarily feel [...] we should hold treatment for a week. Chaperoned Breast Exam noted below. Updated Visit, April 08, 2023: Jyoti Hdz returns today for follow up accompanied by her Alex. She has lost the rest of her [...] her that I see early response already. Chaperoned Breast Exam noted below. Updated Visit, April 04, 2023: Jyoti Thao received cycle 1 day 1 carboplatin, Taxol [...] Updated Visit, March 17, 2023: Here with Alex. Is Tu Cruz's mother. Ready for neoadjuvant treatment given high risk disease. Reviewed MRI, biopsy of second spot was negative. Thoroughly reviewed patients treatment plan. Initial Visit, February 21, 2023: Jyoti Thao presents today Hematology and Oncology evaluation. She is a 67 year old female who has a history of POTS syndrome and is adopted who is [employer] genetic testing is negative. She gives a story of having a normal mammogram in July 2022 and subsequently felt a lump in mid December 2022. She underwent imaging in [facility] and then had a biopsy that [...] this interferes with her plans to buy [employer] [place] [facility] and move there this year with her Tim. Despite high risk disease and the need for a protracted course of neoadjuvant chemotherapy according to keynote 512, I think she will be able to get to the [facility] multiple times. I reassured her that she appears to have curable disease and indeed she felt better. Although her work-up was initiated locally, she would like to transition her care to [facility] and I will make appropriate referrals. M grandmother Cheatham's Mother stroke Birthfather?? Heart attack in 70s - REVIEW OF SYSTEMS Per HPI and otherwise negative by full review of organ systems. - ECOG PERFORMANCE STATUS: 0 PHYSICAL EXAMINATION: Vitals: BP 107/73 Pulse 82 Temp (Src) 97.4 (Temporal) Resp 18 Wt 0 lb (0.0kg) SpO2 99% There is no height or weight on file to calculate BSA. Exam limited to gross visualization where appropriate. Gen.: This is an age-appropriate patient in no acute distress. Head: Appears atraumatic with no visible lesions. Eyes: Pupils equally round and reactive to light, extraocular muscles are intact. Neck: Supple. Respiratory: Appears to be respiring comfortably. Neurologic: Nonfocal to gross visualization. Alert and oriented ?3. Psychiatric: No evidence of inappropriate depression but remains highly anxious. Skin: Visible areas of skin without lesions, wounds or petechiae. Erythematous blanching rash on her forearms and around the port on her chest, will monitor. Prior exams for reference: Chaperoned Breast Exam May 31, 2024 (Sara Clinton) : Right breast shows radiation changes and slight lymphedema, otherwise a normal exam, Left breast is normal to palpation. Socorro exam is negative bilaterally. Chaperoned Breast Exam September 08, 2023 (Tesha Evangelista) : Right breast is tender but no discreet masses, Left breast is mildly tender and normal. Socorro exam is negative bilaterally. Chaperoned Breast Exam July 07, 2023 (Sara Clinton) : Right breast is tender but no discreet masses, Left breast is mildly tender and normal. Socorro exam is negative bilaterally. Chaperoned Breast Exam April 29, 2023 (Sara Clinton) : Right breast shows continued improvement, now lesion measure 0.5 cm, Left breast was not examined. Chaperoned Breast Exam April 08, 2023 (Evan Lambert): Right breast mass at 12 o' clock just above the NAC definitely feels smaller (approx. 1.5 cm), Left breast is normal. Chaperoned Breast Exam February 21, 2023 (Evan Lambert): Fairly tender right breast with a 3 cm dense nodule just above the areola in the 11 o'clock position approximately 1 cm from the nipple. She has a secondary small nodule adjacent and more medial but otherwise breast is largely benign and actually socorro examination is negative. - ALLERGIES: ALLERGIES Allergen Reactions Hydrocodone Other: See Comments, GI Upset Headaches Oxycodone GI Upset Can take 1/2 tab, but full tab makes her sick 12 Hour Cold Capsule Intolerance Adhesive Other: See Comments Aller-Chlor Deconge* Unknown Chlorpheniramine-Ps* Unknown Hxc-Ddweowdks-Aabdj* Itching Decongest Multi-Act* Other: See Comments Diazepam Other: See Comments sick-headache Diphenhydramine Intolerance Levofloxacin Intolerance Nalbuphine Rash Progesterone Other: See Comments, GI Upset Speeds up metabolism Weight gain and voice hoarse Promethazine Unknown Pseudoephedrine Other: See Comments Other Reaction(s): Hyperactive, severe stimulation Other Reaction(s): Intolerance ANY Decongestant-Hyperactive Pseudoephedrine-Dm-* Intolerance ANY Decongestant-Hyperactive Mvmmdvf-Jsc-Jnx Red* Other: See Comments Other Reaction(s): Unknown Tizanidine Hcl Itching, Other: See Comments Morphine Unknown, GI Upset, Vomiting, Other: See Comments Migraine Tramadol Itching, Unknown Tooth sensitivity Only tolerates low dose Only tolerates low dose MEDICATIONS: amoxicillin (AMOXIL) 875 mg tablet Take 1 tablet every 12 hours by oral route for 7 days. Alpha Lipoic Acid 600 mg cap Take 1 capsule by mouth once daily. gabapentin (NEURONTIN) 300 mg capsule Take 1 capsule by mouth three times a day. metFORMIN (GLUCOPHAGE) 500 mg tablet Take 1 tablet by mouth every 12 hours. ondansetron (ZOFRAN) 8 mg tablet Take 1 tablet by mouth every 8 hours as needed for nausea/vomiting. ibuprofen (MOTRIN) 600 mg tablet Take 400 mg by mouth at bedtime as needed. meclizine (ANTIVERT) 25 mg tab TAKE 1-2 TABLETS BY MOUTH FOUR TIMES A DAY NEEDED FOR DIZZINESS pantoprazole DR (PROTONIX) 40 mg tablet Take 40 mg by mouth once daily. scopolamine (TRANSDERM-SCOP) patch 1.5 mg/72 hr (delivers 1 mg over 3 days) Apply 1 Patch as directed every 72 hours as needed. simvastatin (ZOCOR) 10 mg tablet Take 10 mg by mouth daily at bedtime. triamcinolone acetonide (KENALOG) 0.1 % cream Apply 1 application to affected area once daily. eletriptan (RELPAX) 40 mg tablet TAKE 1 TABLET BY MOUTH AT ONSET OF MODERATE TO SEVERE MIGRAINE. MAY REPEAT DOSE IN 2 HOURS. MAX OF 2 DOSES IN 24 HOURS, 2 DAYS A WEEK levothyroxine (SYNTHROID) 50 mcg tablet Take 50 mcg by mouth once daily. blood sugar diagnostic ([employer] VERIO TEST STRIPS) test strip 1 Strip once daily. - LABORATORY VALUES: WBC (k/uL) Date Value 11/14/2024 6.85 RBC (m/uL) Date Value 11/14/2024 4.28 Hemoglobin (g/dL) Date Value 11/14/2024 12.0 Hematocrit (%) Date Value 11/14/2024 35.8 (L) MCV (fL) Date Value 11/14/2024 83.6 MCH (pg) Date Value 11/14/2024 28.0 MCHC (g/dL) Date Value 11/14/2024 33.5 RDW-CV (%) Date Value 11/14/2024 13.8 Platelet Count (k/uL) Date Value 11/14/2024 212 MPV (fL) Date Value 11/14/2024 9.6 Glucose (mg/dL) Date Value 11/14/2024 195 (H) BUN (mg/dL) Date Value 11/14/2024 16 Creatinine (mg/dL) Date Value 11/14/2024 0.79 Sodium (mmol/L) Date Value 11/14/2024 136 Potassium (mmol/L) Date Value 11/14/2024 3.9 Chloride (mmol/L) Date Value 11/14/2024 101 CO2 (mmol/L) Date Value 11/14/2024 25 Protein, Total (g/dL) Date Value 11/14/2024 6.9 11/14/2024 6.4 Albumin (g/dL) Date Value 11/14/2024 4.1 Calcium, Total (mg/dL) Date Value 11/14/2024 9.5 Alkaline Phosphatase (U/L) Date Value 11/14/2024 117 Bilirubin, Total (mg/dL) Date Value 11/14/2024 0.3 AST (U/L) Date Value 11/14/2024 25 ALT (U/L) Date Value 11/14/2024 35 Breast CA 15-3 (U/mL) Date Value 10/17/2024 26.5 09/11/2024 28.4 11/18/2023 30.4 03/17/2023 25.5 - DIAGNOSIS: (D47.2) MGUS (monoclonal gammopathy of unknown significance) (primary encounter diagnosis) (C50.411, Z17.0) Malignant neoplasm of upper-outer quadrant of right breast in female, estrogen receptor positive (HCC) PAST MEDICAL HISTORY Diagnosis Date Anemia Arthritis Breast cancer (HCC) Diabetes (HCC) Diverticulitis of colon Salty Bolton virus infection Essential (primary) hypertension Fibrocystic breast GERD (gastroesophageal reflux disease) Hyperlipidemia Hypothyroidism IBS (irritable bowel syndrome) Malignant neoplasm of upper-outer quadrant of right breast in female, estrogen receptor positive (HCC) 02/21/2023 Migraines Nausea without vomiting 04/30/2021 PONV (postoperative nausea and vomiting) 10/21/2023 POTS (postural orthostatic tachycardia syndrome) Small bowel [...] Discectomy PAST SURGICAL HISTORY OF Mass excision right axilla (benign) PAST SURGICAL HISTORY OF Small bowel resection SINUS SURGERY HX SMALL INTESTINE SURGERY HX TONSILLECTOMY HX UNLISTED STOMACH SURGERY Removal stomach polyps VAGINAL HYSTERECTOMY with appendectomy, Meckel's diverticulectomy Social History Tobacco Use Smoking status: Former Current packs/day: 0.00 Types: Cigarettes Quit date: 2016 Years since quittin.5 Passive exposure: Past Smokeless tobacco: Never Tobacco comments: quit smoking in 2015, on and off, 1/3 ppd at most Vaping Use Vaping status: Never Used Substance Use Topics Alcohol use: Not Currently Comment: rarely Drug use: Never FAMILY HISTORY Adopted: Yes Problem Relation Age of Onset Stroke Mother other (addisons) Maternal Grandmother I spent a total of 30 minutes on the date of the service which included preparing to see the patient, xqud-no-wtew patient care, completing clinical documentation, obtaining and/or reviewing separately obtained history, performing a medically appropriate examination, counseling and educating the patient/family/caregiver, ordering medications, tests, or procedures, independently interpreting results (not separately reported), and communicating results to the patient/family/caregiver. Adair Elaine APRN.[facility] Hematology and Oncology Services Provided at: [place], [place] CC: Dr. Zeke Joaquin [address] [facility] [address] [address] [address] Makeda Osei [address] [facility] [address] [facility] [address] [address] Rosalba John Referring Provider: PAULO SINGH [[id number]] Allergies As of Date: 11/20/2024 Noted Allergy Reaction HYDROCODONE 02/10/2018 14 - Other: See Comments 8 - GI Upset Comments: Headaches OXYCODONE 04/18/2018 8 - GI Upset Comments: Can take 1/2 tab, but full tab makes her sick 12 HOUR COLD CAPSULE 11/05/2019 5 - Intolerance ADHESIVE 03/01/2022 14 - Other: See Comments ALLER-CHLOR DECONGESTANT 03/01/2022 16 - Unknown CHLORPHENIRAMINE-PSEUDOEPHED 02/21/2023 16 - Unknown [id number] 09/08/2017 9 - Itching DECONGEST MULTI-ACTION 12/03/2019 [...] severe stimulation Other Reaction(s): Intolerance ANY Decongestant-Hyperactive [id number] 04/02/2019 5 - Intolerance Comments: ANY Decongestant-Hyperactive QNMTZAF-DDA-AEG REDUCTASE INHIBIT*08/24/2021 14 - Other: See Comments Comments: Other Reaction(s): Unknown TIZANIDINE HCL 09/30/2023 9 - Itching 14 - Other: See Comments MORPHINE 07/05/2011 16 - Unknown 8 - GI Upset 11 - Vomiting 14 - Other: See Comments Comments: Migraine TRAMADOL 09/05/2013 9 - Itching 16 - Unknown Comments: Tooth sensitivity Only tolerates low dose Only tolerates low dose Date Reviewed: 11/20/2024 Reviewed by: Adair Elaine APRN.SPORTS PHYSIOLOGIST - Fully Assessed Reason for Visit: Breast Cancer [519] Primary Visit Diagnosis:MGUS (monoclonal gammopathy of unknown significance) [D47.2] Other Visit Diagnosis:Malignant neoplasm of upper-outer quadrant of right breast in female, estrogen receptor positive (HCC) [C50.411, Z17.0] Order(s):COMPLETE BLOOD COUNT AND DIFFERENTIAL [SQCBCDIF] Order #: [id number] FUTURE COMPREHENSIVE METABOLIC PANEL [SQCMP] Order #: [id number] FUTURE MONOCLONAL PROTEIN, SERUM (BLOOD) [SQSERMPA] Order #: [id number] FUTURE PROTEIN ELECTROPHORESIS SERUM W/INTERP [SQSEPG] Order #: [id number] FUTURE CA 15-3 BLD [GOJI872] Order #: [id number] FUTURE Disposition: Return in about 3 months (around 02/20/2025), or if symptoms worsen or fail to improve, for RV for follow up. Labs 1 week before.. Follow-up and Disposition History for Encounter Date Provider Department Center 11/20/2024 [id number] ELAINE Prescriptions as of 11/21/2024 - amoxicillin (AMOXIL) 875 mg tablet Take 1 tablet every 12 hours by oral route for 7 days. - Alpha Lipoic Acid 600 mg cap Take 1 capsule by mouth once daily. - gabapentin (NEURONTIN) 300 mg capsule Take 1 capsule by mouth three times a day. - metFORMIN (GLUCOPHAGE) 500 mg tablet Take 1 tablet by mouth every 12 hours. - ondansetron (ZOFRAN) 8 mg tablet Take 1 tablet by mouth every 8 hours as needed for nausea/vomiting. - ibuprofen (MOTRIN) 600 mg tablet Take 400 mg by mouth at bedtime as needed. - meclizine (ANTIVERT) 25 mg tab TAKE 1-2 TABLETS BY MOUTH FOUR TIMES A DAY NEEDED FOR DIZZINESS - pantoprazole DR (PROTONIX) 40 mg tablet Take 40 mg by mouth once daily. - scopolamine (TRANSDERM-SCOP) patch 1.5 mg/72 hr (delivers 1 mg over 3 days) Apply 1 Patch as directed every 72 hours as needed. - simvastatin (ZOCOR) 10 mg tablet Take 10 mg by mouth daily at bedtime. - triamcinolone acetonide (KENALOG) 0.1 % cream Apply 1 application to affected area once daily. - eletriptan (RELPAX) 40 mg tablet TAKE 1 TABLET BY MOUTH AT ONSET OF MODERATE TO SEVERE MIGRAINE. MAY REPEAT DOSE IN 2 HOURS. MAX OF 2 DOSES IN 24 HOURS, 2 DAYS A WEEK - levothyroxine (SYNTHROID) 50 mcg tablet Take 50 mcg by mouth once daily. - blood sugar diagnostic ([employer] VERIO TEST STRIPS) test strip 1 Strip once daily. Problem List As Of Date 11/20/2024 Noted Resolved Paraesophageal hernia [K44.9] 02/26/2021 Hiatal hernia with gastroesophageal reflux [K44*01/22/1996 Diabetes type 2, controlled (HCC) [E11.9] 02/14/2017 Mixed hyperlipidemia [E78.2] 07/05/2011 Essential (primary) hypertension [I10] 04/27/2021 Postural orthostatic tachycardia syndrome [G90.*10/24/2017 Migraine [G43.909] 04/27/2021 Hiatal hernia [K44.9] 04/29/2021 Obesity, Class I, BMI 30-34.9 [E66.811] 04/30/2021 Nausea without vomiting [R11.0] 04/30/2021 Malignant neoplasm of upper-outer quadrant of r*02/21/2023 Malignant neoplasm of central portion of right *04/29/2023 Immunotherapy [Z29.89] 04/29/2023 Thyroiditis [E06.9] 04/29/2023 Blood glucose elevated [R73.9] 04/29/2023 PONV (postoperative nausea and vomiting) [R11.2*10/21/2023 Diabetic polyneuropathy associated with type 2 *09/25/2024 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, T*09/25/2024 Neuropathic pain [M79.2] 09/25/2024 Disturbance of skin sensation [R20.9] 09/25/2024 Abnormality of gait and mobility [R26.9] 09/25/2024 Personal history of malignant neoplasm of breas*09/25/2024 Spinal stenosis, cervical region [M48.02] 09/25/2024 Spinal stenosis of lumbar region [M48.061] 09/25/2024 Postural orthostatic tachycardia syndrome (POTS*09/25/2024 Monoclonal gammopathy [D47.2] 10/09/2024 Abnormal serum protein test [R77.8] 10/09/2024 Zinc deficiency [E60] 10/09/2024 Encounter Status:Closed by ADAIR ELAINE on 11/21/24 B2 MICROGLOB SERPL-MCNC Collected: 10/22 11:21 AM Status: F Source: [facility] Order Comment: Specimen Type : BLOOD SPECIMEN Ordering Facility: [facility] Address: [address] [place] [address] TYPE CODE TESTS RESULT OUT OF RANGE REFERENCE UNITS LAB 1951-(LOINC) B2 Microglob SerPl-mCnc 2.5 <3.1 mg/L Result Comment: Beta-2 Micro globulin test is performed using the [employer] immunoturbidimetric method. Results obtained with different methods or kits cannot be used interchangeably. Performed By: #### 1952-1, 2 885-2 #### [facility] CLIA [id number] [address] [place] [address] [place] PROT SERPL-MCNC Collected: 11:21 AM Status: F Source: [facility] Order Comment: Specimen Type : BLOOD SPECIMEN Ordering Facility: [facility] Address: [address] [place] [address] TYPE CODE TESTS RESULT OUT OF RANGE REFERENCE UNITS LAB 2885-2([facility]) Prot SerPl-mCnc 6.4 6.3-8.0 g/dL Performed By: #### 1952-1, 2 885-2 #### [facility] CLIA [id number] [address] [facility] [address] [place] [id number] [place] CBC W AUTO DIFF BLD Collected: 11/14/2024 11:21 AM S tatus: F Source: [facility] Order Comment: Specimen Type : BLOOD SPECIMEN Ordering Facility: [facility] Address: [address] [place] [address] TYPE CODE TESTS RESULT OUT OF RANGE REFERENCE UNITS LAB 6690-2([facility]) WBC # Bld Auto 6.85 3.70-11.00 k/uL LAB 789-8(INC) RBC # Bld Auto 4.28 3.90-5.20 m/ uL LAB 718-7(INC) Hgb Bld-mCnc 12.0 11.5-15.5 g/dL LAB 4544-3(INC) Hct VFr Bld Auto 35.8 Low 36.0-46.0 % LAB 787-2(INC) MCV RBC Auto 83.6 80.0-100.0 fL LAB 785-6(INC) MCH RBC Qn Auto 28.0 26.0-34.0 p g LAB 786-4(INC) MCHC RBC Auto-mCnc 33.5 30.5-36.0 g/dL LAB 60388-2([facility]) RDW RBC-Rto 13.8 11.5-15.0 % LAB 777-3(INC) Platelet # Bld Auto 212 150-400 k/uL LAB 29109-0(INC) PMV Bld Auto 9.6 9.0-12.7 fL LAB 770-8(LOINC) Neutrophils/leuk NFr Bld Auto 59.7 % LAB 751-8(LOINC) Neutrophils # Bld Auto 4.09 1.45-7.50 k/uL LAB 736-9(LOINC) Lymphocytes/leuk NFr Bld Auto 33.6 % LAB 731-0(LOINC) Lymphocytes # Bld Auto 2.30 1.00-4.00 k/uL LAB 5905-5(LOINC) Monocytes/leuk NFr Bld Auto 5.4 % LAB 742-7(LOINC) Monocytes # Bld Auto 0.37 <0.87 k/uL LAB 713-8(LOINC) Eosinophil/leuk NFr Bld Auto 0.7 % LAB 711-2(LOINC) Eosinophil # Bld Auto 0.05 <0.46 k/uL LAB 706-2(LOINC) Basophils/leuk NFr Bld Auto 0.3 % LAB 704-7(LOINC) Basophils # Bld Auto <0.03 <0.11 k/uL LAB 65788-8(LOINC) Imm Granulocytes/dominga k NFr Bld Auto 0.3 % LAB 80130-2(LOINC) Imm Granulocytes # Bld Auto <0.03 <0.10 k/uL LAB 82444-1(LOINC) nRBC/100 WBC Bld-Rto 0.0 /100 WBC LAB 771-6(LOINC) nRBC # Bld Auto <0.01 <0.01 k/u L LAB 75039-1(LOINC) Differential method Bld Auto Performed By: #### 57902-1 # ### [facility] CLIA [id number] [address] [place] [address] KAPPA/MARVIN,FREE,SER Collected: 11/15/19 11:21 AM Status: F Source: [facility] Order Comment: Specimen Type : BLOOD SPECIMEN Ordering Facility: [facility] Address: [address] [place] [address] TYPE CODE TESTS RESULT OUT OF RANGE REFERENCE UNITS LAB 51145-8(LOINC) [place] LC Free Ser-mCnc 20.9 High 3.3-19.4 mg/L Result Comment: Rarely, incr eased serum free light chains levels may not be detected or accurately quantified due to prozone phenomenon or in high viscosity samples using this immunoturbidimetric assay. Correlation with other laboratory results and clinical findings is recommended. The [place] Free Light Chain was performed using the [employer] immunoturbidimetric method. Result obtained with different assay methods or kits cannot be used interchangeably. LAB 11392-9(LOINC) Lambda LC Free SerPl-mCnc 23.1 5.7-26.3 mg/L Result Comment: Rarely, incr eased serum free light chains levels may not be detected or accurately quantified due to prozone phenomenon or in high viscosity samples using this immunoturbidimetric assay. Correlation with other laboratory results and clinical findings is recommended. The [place] Free Light Chain was performed using the [employer] immunoturbidimetric method. Result obtained with different assay methods or kits cannot be used interchangeably. LAB 93346-2(LOINC) [place] LC/Lambda Ser 0.90 0.26-1.65 Performed By: #### KLFRS ### # [facility] CLIA [id number] [address] [place] [address] OF [facility] PROTEIN ELECTROPHORESIS SERUM (P) Collected: 11/14/2024 11:21 AM Status: F Source: [facility] Order Comment: Specimen Type : BLOOD SPECIMEN Ordering Facility: [facility] Address: [address] [place] [address] TYPE CODE TESTS RESULT OUT OF RANGE REFERENCE UNITS LAB 2862-1(LOIN C) Albumin SerPl Elph-mCnc 3.68 3.43-5.41 g/dL LAB 2865-4(LOIN C) Alpha1 Glob SerPl Elph-mCnc 0.33 0.18-0.43 g/dL LAB 2868-8(LOIN C) Alpha2 Glob SerPl Elph-mCnc 0.80 0.42-0.98 g/dL LAB 2871-2(LOIN C) B-Globulin SerPl Elph-mCnc 0.90 0.61-1.17 g/dL LAB 2874-6(LOIN C) Gamma glob SerPl Elph-mCnc 0.69 0.53-1.51 g/dL LAB 82661-3([facility]) Prot Pattern SerPl Elph-Imp An M protein is identified on protein electrophoresis. Abnormal No definitive M protein is identified on protein electropho resis. LAB SPEINTC INTERPRETATION COMMENT FOR PROTEIN ELECTROPHORESIS See separate immunofixation report for characterization of monoclonal gammopathy. LAB LOC M-PROTEIN LOCATION Gamma Fraction 1 LAB 82143-5([place]) M Protein SerPl Elph-mCnc 0.07 High <=0.00 g/dL LAB SPESTF SPE STAFF REVIEW Reviewed by Clotilde Stephens MD Performed By: #### [id number] # ### [facility] CLIA [id number] [address] [place] [address] [facility] [place] IMMUNOFIXATION SCREEN, SERUM Collected: 11/14/2024 11:21 AM Status: F Source: [facility] Comment: Specimen Type : BLOOD SPECIMEN Ordering Facility: [facility] Address: [address] [place] [address] TYPE CODE TESTS RESULT OUT OF RANGE REFERENCE UNITS LAB MPAR MPA RESULT M protein is present. Abnormal No M protein is identified. LAB INTP INTERPRETATION (MPA) Atypical restricted bands are present in the IgG and lambda regions. Consistent with IgG lambda monoclonal gammopathy. LAB MPASTF STAFF REVIEW (MPA) Reviewed by Clotilde Stephens MD Performed By: #### IFESC ### # [facility] CLIA [id number] [address] [place] [address] OF [place] URATE SERPL-MCNC Collected: 11:21 AM Status: F Source: [facility] Comment: Specimen Type : BLOOD SPECIMEN Ordering Facility: [facility] Address: [address] [place] [address] TYPE CODE TESTS RESULT OUT OF RANGE REFERENCE UNITS LAB 3084-1(LOINC) Urate SerPl-mCnc 4.9 2.5-6.6 mg/dL Performed By: #### 2532-0, 2 4323-8, 3084-1, 2777-1 #### [facility] CLIA [id number] [address] [place] [address] PHOSPHATE SERPL-MCNC Collected: 025 11:21 AM Status: F Source: [facility] Comment: Specimen Type : BLOOD SPECIMEN Ordering Facility: [facility] Address: [address] [place] [address] TYPE CODE TESTS RESULT OUT OF RANGE REFERENCE UNITS LAB 2777-1(LOINC) Phosphate SerPl-mCnc 2.9 2.7-4.8 mg/dL Performed By: #### 2532-0, 2 4323-8, 3084-1, 2777-1 #### [facility] CLIA [id number] [address] [place] [address] LDH SERPL-CCNC Collected: 11:21 AM Status: F Source: [facility] Order Comment: Specimen Type : BLOOD SPECIMEN Ordering Facility: [facility] Address: [address] [place], [place] [address] TYPE CODE TESTS RESULT OUT OF RANGE REFERENCE UNITS LAB 2532-0([facility]) LDH SerPl-cCnc 228 High 135-214 U/L Performed By: #### 2532-0, 2 4323-8, 3084-1, 2777-1 #### [facility] CLIA [id number] [address] [place] [address] COMP METAB 2000 PNL SERPL Collected: 11:21 AM Status: F Source: [facility] Order Comment: Specimen Type : BLOOD SPECIMEN Ordering Facility: [facility] Address: [address] [place] [address] TYPE CODE TESTS RESULT OUT OF RANGE REFERENCE UNITS LAB 2885-2(LOINC) Prot SerPl-mCnc 6.9 6.3-8.0 g/dL LAB 1751-7(INC) Albumin SerPl-mCnc 4.1 3.9-4.9 g/dL LAB 87272-4(INC) Calcium SerPl-mCnc 9.5 8.5-10.2 mg/dL LAB 1975-2(LOINC) Bilirub SerPl-mCnc 0.3 0.2-1.3 mg/dL LAB 6768-6(LOINC) ALP SerPl-cCnc 117 34-123 U/L LAB 1920-8(LOINC) AST SerPl-cCnc 25 13-35 U/L LAB 1742-6(LOINC) ALT SerPl-cCnc 35 7-38 U/L LAB 2345-7(INC) Glucose SerPl-mCnc 195 High 74-99 mg/dL Result Comment: The [place] [employer] (ADA) provides guidance for cutoff values for fasting glucose and random glucose. The ADA defines fasting as no caloric intake for at least 8 hours. Fasting plasma glucose results between 100 to 125 mg/dL indicate increased risk for diabetes (prediabetes). Fasting plasma glucose results greater than or equal to 126 mg/dL meet the criteria for diagnosis of diabetes. In the absence of unequivocal hyperglycemia, results should be confirmed by repeat testing. In a patient with classic symptoms of hyperglycemia or hyperglycemic crisis, random plasma glucose results greater than or equal to 200 mg/dL meet the criteria for diagnosis of diabetes. Reference: Standards of [facility] 2016, [place] [employer]. Diabetes Care. 2016.39(Suppl 1). LAB 3094-0(LOINC) BUN SerPl-mCnc 16 7-21 mg/ dL LAB 2160-0(LOINC) Creat SerPl-mCnc 0.79 0.58-0.96 mg/dL LAB 2951-2(LOINC) Sodium SerPl-sCnc 136 136-144 mmol/L LAB 2823-3(LOINC) Potassium SerPl-sCnc 3.9 3.7-5.1 mmol/L LAB 2075-0(LOINC) Chloride SerPl-sCnc 101 98-107 mmol/L LAB 2028-9(LOINC) CO2 SerPl-sCnc 25 22-30 mmo l/L LAB 10184-1(LOINC) Anion Gap SerPl-sCnc 10 8-15 mmol/L LAB 06909-3(LOINC) Creatinine + eGFR Pnl SerPlBld 82 >=60 mL/min/1 .73m??? Result Comment: Estimated Gl omerular Filtration Rate (eGFR) is calculated using the 2020 CKD-EPI creatinine equation. This equation utilizes serum creatinine, sex, and age as parameters. The creatinine assay has traceable calibration to isotope dilution-mass spectrometry. Refer to KDIGO guidelines for clinical interpretation. In patients with unstable renal function, e.g. those with acute kidney injury, the eGFR may not accurately reflect actual GFR. Performed By: #### 2532-0, 2 4323-8, 3084-1, 2777-1 #### [facility] CLIA [id number] [address] [place] [address]-I SERPL-SCNC Collected: 11:21 AM Status: F Source: [facility] Order Comment: Specimen Type : BLOOD SPECIMEN Ordering Facility: [facility] Address: [address] [place] [address] TYPE CODE TESTS RESULT OUT OF RANGE REFERENCE UNITS LAB 88957-7(LOINC) Ca-I adj pH7.4 Bld-sCnc 1.22 1.08-1.30 mmol/L LAB 88413-2(INC) Ca-I Bld-mCnc 1.23 1.08-1.30 mmol/L Performed By: #### 1995-0 ## ## [facility] CLIA [id number] [address] [place] [address] [place] IMMUNOGLOBULINS,IGG,IGA,IGM Collected: 11/14/2024 11:21 AM Status: F Source: [facility] Order Comment: Specimen Type : BLOOD SPECIMEN Ordering Facility: [facility] Address: [address] [place] [address] TYPE CODE TESTS RESULT OUT OF RANGE REFERENCE UNITS LAB 2465-3(LOINC ) IgG SerPl-mCn c 685 307-1235 mg/dL LAB 2458-8(LOINC ) IgA SerPl-mCn c 225 70-400 mg/dL LAB 2472-9(LOINC ) IgM SerPl-mCn c 175 40-230 mg/dL Performed By: #### SERIMM ## ## [facility] CLIA [id number] [address] [place] [address] [place] CNPN Observed: 11/12/2024 12:00 AM Status: COMPLETED Source: [facility] Telephone (HEMASA) JYOTI THAO ([id number]) 1955 F Date Time Provider Department 11/12/24 FRIEDA GRACIA During your visit today, we recorded the following information about you: Frieda Gracia RN 11/12/2024 9:49 AM Signed Pt due for labs this week. Reports she's been sick w/ Louie Bolton since last week. Should she postpone her labs or is she ok to have these drawn? Will this have any impact on her results? JEVON Holden Vivek, MD 11/12/2024 10:08 AM Signed I would still get labs if she's able. Frieda Gracia RN 11/12/2024 10:13 AM Signed Pt notified and verbalizes understanding. Frieda Gracia RN Allergies As of Date: 11/12/2024 Noted Allergy Reaction HYDROCODONE 02/10/2018 14 - Other: See Comments 8 - GI Upset Comments: Headaches OXYCODONE 04/18/2018 8 - GI Upset Comments: Can take 1/2 tab, but full tab makes her sick 12 HOUR COLD CAPSULE 11/05/2019 5 - Intolerance ADHESIVE 03/01/2022 14 - Other: See Comments ALLER-CHLOR DECONGESTANT 03/01/2022 16 - Unknown CHLORPHENIRAMINE-PSEUDOEPHED 02/21/2023 16 - Unknown IFK-AEGAPHILS-BRAFHKIDTNPBS 09/08/2017 9 - Itching DECONGEST MULTI-ACTION 12/03/2019 [...] severe stimulation Other Reaction(s): Intolerance ANY Decongestant-Hyperactive NHSNYMZYCCTHQGY-LI-VMCDSSSNFAM 04/02/2019 5 - Intolerance Comments: ANY Decongestant-Hyperactive HSVYBTE-FKT-RZQ REDUCTASE INHIBIT*08/24/2021 14 - Other: See Comments Comments: Other Reaction(s): Unknown TIZANIDINE HCL 09/30/2023 9 - Itching 14 - Other: See Comments MORPHINE 07/05/2011 16 - Unknown 8 - GI Upset 11 - Vomiting 14 - Other: See Comments Comments: Migraine TRAMADOL 09/05/2013 9 - Itching 16 - Unknown Comments: Tooth sensitivity Only tolerates low dose Only tolerates low dose Date Reviewed: 10/17/2024 Reviewed by: Yodit Collier MA - Fully Assessed Reason for Visit: Care Coordination [3491] Cmt: Lab Appointment Prescriptions as of 11/12/2024 - Alpha Lipoic Acid 600 mg cap Take 1 capsule by mouth once daily. - gabapentin (NEURONTIN) 300 mg capsule Take 1 capsule by mouth three times a day. - metFORMIN (GLUCOPHAGE) 500 mg tablet Take 1 tablet by mouth every 12 hours. - ondansetron (ZOFRAN) 8 mg tablet Take 1 tablet by mouth every 8 hours as needed for nausea/vomiting. - ibuprofen (MOTRIN) 600 mg tablet Take 400 mg by mouth at bedtime as needed. - meclizine (ANTIVERT) 25 mg tab TAKE 1-2 TABLETS BY MOUTH FOUR TIMES A DAY NEEDED FOR DIZZINESS - pantoprazole DR (PROTONIX) 40 mg tablet Take 40 mg by mouth once daily. - scopolamine (TRANSDERM-SCOP) patch 1.5 mg/72 hr (delivers 1 mg over 3 days) Apply 1 Patch as directed every 72 hours as needed. - simvastatin (ZOCOR) 10 mg tablet Take 10 mg by mouth daily at bedtime. - triamcinolone acetonide (KENALOG) 0.1 % cream Apply 1 application to affected area once daily. - eletriptan (RELPAX) 40 mg tablet TAKE 1 TABLET BY MOUTH AT ONSET OF MODERATE TO SEVERE MIGRAINE. MAY REPEAT DOSE IN 2 HOURS. MAX OF 2 DOSES IN 24 HOURS, 2 DAYS A WEEK - levothyroxine (SYNTHROID) 50 mcg tablet Take 50 mcg by mouth once daily. - blood sugar diagnostic (ONETOUCH VERIO TEST STRIPS) test strip 1 Strip once daily. Problem List As Of Date 11/12/2024 Noted Resolved Paraesophageal hernia [K44.9] 02/26/2021 Hiatal hernia with gastroesophageal reflux [K44*01/22/1996 Diabetes type 2, controlled (HCC) [E11.9] 02/14/2017 Mixed hyperlipidemia [E78.2] 07/05/2011 Essential (primary) hypertension [I10] 04/27/2021 Postural orthostatic tachycardia syndrome [G90.*10/24/2017 Migraine [G43.909] 04/27/2021 Hiatal hernia [K44.9] 04/29/2021 Obesity, Class I, BMI 30-34.9 [E66.811] 04/30/2021 Nausea without vomiting [R11.0] 04/30/2021 Malignant neoplasm of upper-outer quadrant of r*02/21/2023 Malignant neoplasm of central portion of right *04/29/2023 Immunotherapy [Z29.89] 04/29/2023 Thyroiditis [E06.9] 04/29/2023 Blood glucose elevated [R73.9] 04/29/2023 PONV (postoperative nausea and vomiting) [R11.2*10/21/2023 Diabetic polyneuropathy associated with type 2 *09/25/2024 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, T*09/25/2024 Neuropathic pain [M79.2] 09/25/2024 Disturbance of skin sensation [R20.9] 09/25/2024 Abnormality of gait and mobility [R26.9] 09/25/2024 Personal history of malignant neoplasm of breas*09/25/2024 Spinal stenosis, cervical region [M48.02] 09/25/2024 Spinal stenosis of lumbar region [M48.061] 09/25/2024 Postural orthostatic tachycardia syndrome (POTS*09/25/2024 Monoclonal gammopathy [D47.2] 10/09/2024 Abnormal serum protein test [R77.8] 10/09/2024 Zinc deficiency [E60] 10/09/2024 Encounter Status:Closed by FRIEDA GRACIA on 11/12/24 PROGRESS Observed: 10/17/2024 11:00 AM Status: COMPLETED Source: [facility] HNO ID: [id number] Author: PAULO SINGH MD Service: ? 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 Following additional imaging, including MRI breast bilateral, CT CAP, echocardiogram she will be ready for initiation of neoadjuvant chemotherapy with immunotherapy. Preceding this the patient desired to have an opinion with one of our [facility] breast surgeons and may need lymph node sampling prior to start of therapy. Given TNBCa stage IIA high risk disease, will proceed with neoadjuvant systemic therapy. Neoadjuvant treatment with Keynote 512 - MRI, 4 cycles keytruda Carboplatin + taxol - MRI - 4 cycles keytruda AC MRI then surgery. Her genetic testing was negative. Appears to have good response with 2 cycles of therapy on examination of right breast. Completed Keytruda in February 2024 and has had right lumpectomy mid-October 2023. In October 2023, She was found to have imaging showing an abnormality that will need biopsied in the right breast that was a possible recurrence but turned out benign. She is seeing neurology for fatigue as well as neuropathy. She was found to have an M-spike. Will workup further. In the meanwhile, will need to aggressively manage her sugars. PLAN: Labs with port in 4 weeks RTC in 5 weeks HPI: CASE HISTORY: Reverse Chronological Order 09/11/2024 - M-protein is present [place]: 20.8, Lambda: 20.3, K/L Ratio: 1.02 08/21/2024 - Bilateral Diagnostic Mammogram: Finding 1: Stable calcifications in the lateral left breast are probably benign. Follow-up with diagnostic mammogram is recommended in 6 months. Finding 2: The asymmetry in the upper outer quadrant of the right breast is benign. BI-RADS Category 3: Probably Benign 05/04/2024 - US Thyroid/Parathyroid: Thyroid nodule(s) present is/are clinically insignificant. No surveillance is advised. 03/14/2024 - Breast, right, at 11:00, 4 cm from the nipple, mass, Q clip, ultrasound-guided core biopsy: Benign breast parenchyma with markedly dense stromal fibrosis. Rare microcalcifications are present within benign breast. 02/21/2024 - Diagnostic Mammogram AND Ultrasound: Mammogram: Finding 1: Irregular mass in the right breast is suspicious of malignancy. An ultrasound guided biopsy is recommended. Findings were discussed with the patient at the time of examination. Finding 2: Calcifications in the left breast are probably benign. Follow-up in 6 months is recommended. Finding 3: Biopsy marker clips in both breasts are benign. BI-RADS Category 4: Suspicious Ultrasound: Finding 1: Ultrasound demonstrates an irregular mass measuring 1.0 x 0.8 x 0.9cm in the right breast at 11 o'clock located 4 cm from the nipple. Internal echotexture is hypoechoic. Color flow imaging demonstrates vascularity is not present. The ipsilateral axilla was surveyed, and no abnormal lymph nodes were visible. 12/21/2023-01/19/2024 - 20 fractions of radiation to right breast 11/02/2023 - Right breast lumpectomy: Dr. Reynoso A. Right axillary sentinel lymph node, excision: - One lymph node, negative for carcinoma (0/1). B. Right breast, lumpectomy: - Residual invasive ductal carcinoma with treatment effect, see comment and synoptic report. - Prior biopsy site, biopsy clip, and Marianela shipping processor device. C, D, E, F, G, H. Right breast, multiple margins, excision: - The final inked margin is negative for carcinoma. ER-, CO-, HER2- 10/27/2023-03/08/2024 - 4 cycles single agent Keytruda 400mg q 6 weeks 10/26/2023 - Infrared activated electromagnetic reflector device placement for the mass in the right breast at 12 o'clock middle depth 5 cm from the nipple 10/12/2023 - MRI Breast: Continued interval treatment response to neoadjuvant systemic therapy of the known biopsy-proven malignancy in the 12:00 right breast, now measuring 8 mm (with previous serial measurements as above). No suspicious areas of enhancement in the left breast. No lymphadenopathy. Mild motion limitations. 09/26/2023 - US Extremity Nonvascular LT: 2 indeterminate hyperechogenic left axillary lesions measuring 0.7 and 0.6 cm. In light of the patient's invasive ductal carcinoma, metastatic disease to lymph nodes should be considered. 07/07/2023-09/15/2023 - 4 cycles A/C + Keytruda q 21 days 07/01/2023 - MRI Breast: BI-RADS 6 - Known Malignancy. Right Breast: 1.5 cm irregular enhancing mass in the right breast at 12:00 anterior depth corresponds with patient's known site of malignancy. This previously measured 2.2 cm in maximum dimension. 03/17/2023-06/10/2023 - 4 cycles days 1, 8, 15 q 21 days Carboplatin / Taxol / Keytruda 03/15/2023 - MRI Breast: 2.2 cm spiculated enhancing mass in the 12:00 anterior depth-middle depth right breast at site of biopsy-proven malignancy. No other definite suspicious areas of enhancement in either breast. No lymphadenopathy. 03/10/2023 - USG breast bx 2nd right breast lesion: - Negative for additional malignancy 03/09/2023 - CT CAP: Negative for metastatic disease. Hepatic steatosis. 01/20/2023 - Right breast mass biopsy: - Invasive ductal carcinoma grade 3 ER 0, CO 0 HER2 1+ by IHC negative. 01/20/2023 - Post-biopsy diagnostic mammography metallic marker placed in targeted location within the upper outer quadrant right breast. 01/17/2023 - Diagnostic Mammography: Right breast category 4 suspicious for malignancy US demonstrates bilobed hypoechoic mass with acoustic shadowing smaller component measuring 5.9 mm connected to a larger deeper 8.3 mm lesion with a connecting stalk measuring 2.3 mm. 12/2022 - Mid December felt a lump in her right breast 07/2022 - Normal mammogram Updated Visit, October 17, 2024: New Problem Jyoti Hdz returns today with Alex for a new problem. Labs completed last month per neurology revealed a positive m-spike and elevated kappa light chain. I suspect these abnormal results are due to inflammation. Inflammation may be caused with uncontrolled diabetes. We discussed some diet changes that can help decrease her glucose/A1c. She reports fatigue is progressing. Will consider seeing an infectious disease specialist for EBV. Updated Visit, September 11, 2024: Jyoti Hdz returns for a follow up. Recent diagnostic mammogram showed stable benign calcifications in the left breast and a benign asymmetry in the right breast. She denies any changes to the breast, pain is unchanged. She has a follow up with Dr. Reynoso next week, will defer my exam today. She complains of fatigue today due to EBV. But could also be due to weight gain. 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 Updated Visit, May 31, 2024: Jyoti Hdz returns with her , Alex. She had a biopsy of the right breast in 02/2024 - results benign. Her annual ultrasound of the thyroid confirmed clinically insignificant nodules. She complains of decreased stamina and bilateral foot neuropathy - treats with gabapentin 300mg TID. Will continue to follow up q 12 weeks. Chaperoned Breast Exam noted below. Updated Visit, March 08, 2024: Jyoti Hdz returns for her final Keytruda infusion. She had a mammogram and ultrasound on 02/20, an irregular mass that is suspicious for malignancy was seen in the right breast. She has a biopsy scheduled for next week. She reports she is still fatigued due to radiation. She had a syncopal episode recently. Updated Visit, January 26, 2024: Jyoti Hdz returns today for Keytruda. She completed about 4 weeks of radiation to the right breast. She endorses expected skin changes, although says it is improving. She is also experiencing fatigue. She also mentions she is overdue for an annual thyroid ultrasound, at [facility], to monitor nodules - will order at next visit. Deferred breast exam as Dr. John had recently examined her. Updated Visit, November 18, 2023: Had her right breast surgery and did very well. Pathology with responsive tumor and LN negative. TNBC. Some neuropathy continues. Breast is hard and had some post-op cellulitis that has cleared. Updated Visit, October 27, 2023: Jyoti Hdz returns today with Alex. MRI breast shows continued response to treatment. She developed pustules w/ itching on her arms, chest, AND legs and tingling/burning in her lips. She wonders if this was an allergic reaction so has discontinued some of her medications. She is wearing a cervical collar due to a pinched nerve in her neck. She complains of severe pain and occasional dizziness. She is unable to have an MRI for her neck since she cannot lay on her chest due to her upcoming lumpectomy. Updated Visit, September 08, 2023: Severe cold and sore throat last week causing her to cancel US. Alex called me and I had recommended ER for severe teeth and throat pain. She ended up not going. Continues to have numerous complaints of body aches, anxiety etc. But no definitive illness. Symptoms have resolved, but she would like another week to finish her recovery. Chaperoned Breast Exam noted below. Updated Visit, August 18, 2023: Jyoti Thao returns for follow-up and continued treatment. Overall, she is tolerating treatment well. She has been experiencing some tooth sensitivity. She has been using a TENS unit for her foot neuropathy. She denies any fevers, chills, night sweats or signs/symptoms of infection. No bleeding or abnormal bruising. She wishes to proceed with treatment as planned. Updated Visit, July 28, 2023: Jyoti Thao returns for follow-up and continued treatment. Overall, she is tolerating treatment well. She denies cough, shortness of breath and other pulmonary complaints. She denies any skin rashes. 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 She complains of feeling tired with treatment. She denies fevers, chills, night sweats and signs/symptoms of infection. No bleeding or abnormal bruising. Today she expresses some concerns about having her teeth cleaned. Updated Visit, July 07, 2023: Jyoti Hdz returns today with Alex. She has had a cold for a couple weeks, is finally now getting over it. She notes she will start wearing a mask when she goes out. Recent MRI shows response to treatment. Her fingernails and toenails are turning black - side effect of chemo. Also reports neuropathy in her feet and fingertips. Proceeding with C5 today. Chaperoned Breast Exam noted below. Updated Visit, May 27, 2023: Jyoti Hdz returns with Alex for follow up and to begin C4 of her treatment. She reports that the hydration has been helping. I encouraged her not to hesitate to reach out if she feels she needs more fluids. We reviewed her labs, which show decreases in blood counts so she is more anemic today. Her chemistries look great. She has not done a self-breast exam since I last saw her, we will conduct another prior to starting Adriamycin. I also will order a breast MRI. She will need education for the new regimen. She reports the only thing bothering her right now is some mild neuropathy in her toes, and some random brief shooting pains in her legs and feet. Her BGs have been running on average in the 150s-160s, with some days in the 130s. We briefly discussed possible timeline for finishing out her treatment course and what she will decide for her surgery. Updated Visit, April 29, 2023: Jyoti Hdz returns today with Alex for follow up. She is having a [...] a lot of fluids. Has seen the operation research analyst. Even though she does not necessarily feel nauseous, her stomach pain may be a different manifestation of nausea, so she should consider taking her antiemetic anyway when she needs to eat. She is also having bowel troubles with using the bathroom, she is having frequent diarrhea. Tried Imodium but this madeher very constipated for several days and she [...] we should hold treatment for a week. Chaperoned Breast Exam noted below. Updated Visit, April 08, 2023: Jyoti Hdz returns today for follow up accompanied by her Alex. She has lost the rest of her [...] her that I see early response already. Chaperoned Breast Exam noted below. Updated Visit, April 04, 2023: Jyoti Thao received cycle 1 day 1 carboplatin, Taxol [...] Updated Visit, March 17, 2023: Here with Alex. Is Tu Cruz's mother. Ready for neoadjuvant treatment given high risk disease. Reviewed MRI, biopsy of second spot was negative. Thoroughly reviewed patients treatment plan. Initial Visit, February 21, 2023: Jyoti Thao presents today Hematology and Oncology evaluation. She is a 67 year old female who has a history of POTS syndrome and is adopted who is [employer] genetic testing is negative. She gives a story of having a normal mammogram in July 2022 and subsequently felt a lump in mid December 2022. She underwent imaging in [facility] and then had a biopsy that [...] this interferes with her plans to buy [employer] [place] [facility] and move there this year with her Tim. Despite high risk disease and the need for a protracted course of neoadjuvant chemotherapy according to keynote 512, I think she will be able to get to the [employer] multiple times. I reassured her that she appears to have curable disease and indeed she felt better. Although her work-up was initiated locally, she would like to transition her care to [facility] and I will make appropriate referrals. M grandmother Lucio's Mother stroke Birthfather?? Heart attack in 70s Chaperoned Breast Exam noted below. REVIEW OF SYSTEMS Per HPI and otherwise negative by full review of organ systems. ECOG PERFORMANCE STATUS: 0 PHYSICAL EXAMINATION: Vitals: BP 137/70 Pulse 81 Temp (Src) 97.9 (Temporal) Resp 16 Ht 5' 5.984 (1.68m) Wt 184 lb 15.5 oz (83.9kg) SpO2 97% BMI 29.87 kg/(m2). Body surface area is 1.98 meters squared. Exam limited to gross visualization where appropriate. Gen.: This is an age-appropriate patient in no acute distress. Head: Appears atraumatic with no visible lesions. Eyes: Pupils equally round and reactive to light, extraocular muscles are intact. Neck: Supple. Respiratory: Appears to be respiring comfortably. Neurologic: Nonfocal to gross visualization. Alert and oriented ?3. Psychiatric: No evidence of inappropriate depression but remains highly anxious. Skin: Visible areas of skin without lesions, wounds or petechiae. Erythematous blanching rash on her forearms and around the port on her chest, will monitor. Prior exams for reference: Chaperoned Breast Exam May 31, 2024 (Sara Clinton) : Right breast shows radiation changes and slight lymphedema, otherwise a normal exam, Left breast is normal to palpation. [place] exam is negative bilaterally. Chaperoned Breast Exam September 08, 2023 (Tesha Evangelista) : Right breast is tender but no discreet masses, Left breast is mildly tender and normal. [place] exam is negative bilaterally. Chaperoned Breast Exam July 07, 2023 (Sara Clinton) : Right breast is tender but no discreet masses, Left breast is mildly tender and normal. [place] exam is negative bilaterally. Chaperoned Breast Exam April 29, 2023 (Sara Clinton) : Right breast shows continued improvement, now lesion measure 0.5 cm, Left breast was not examined. Chaperoned Breast Exam April 08, 2023 (Evan Lambert): Right breast mass at 12 o' clock just above the NAC definitely feels smaller (approx. 1.5 cm), Left breast is normal. Chaperoned Breast Exam February 21, 2023 (Evan Lambert): Fairly tender right breast with [...] See Comments Aller-Chlor Deconge* Unknown Chlorpheniramine-Ps* Unknown Bar-Hvmlrioch-Cxlqo* Itching Decongest Multi-Act* Other: See Comments Diazepam Other: See Comments sick-headache Diphenhydramine Intolerance Levofloxacin Intolerance Nalbuphine Rash Progesterone Other: See Comments, GI Upset Speeds up metabolism Weight gain and voice hoarse Promethazine Unknown Pseudoephedrine Other: See Comments Other Reaction(s): Hyperactive, severe stimulation Other Reaction(s): Intolerance ANY Decongestant-Hyperactive Pseudoephedrine-Dm-* Intolerance ANY Decongestant-Hyperactive Twljjsq-Win-Sqx Red* Other: See Comments Other Reaction(s): Unknown Tizanidine Hcl Itching, Other: See Comments Morphine Unknown, GI Upset, Vomiting, Other: See Comments Migraine Tramadol Itching, Unknown Tooth sensitivity Only tolerates low dose Only tolerates low dose MEDICATIONS: Alpha Lipoic Acid 600 mg cap Take 1 capsule by mouth once daily. metFORMIN (GLUCOPHAGE) 500 mg tablet Take 1 tablet by mouth every 12 hours. ondansetron (ZOFRAN) 8 mg tablet Take 1 tablet by mouth every 8 hours as needed for nausea/vomiting. ibuprofen (MOTRIN) 600 mg tablet Take 400 mg by mouth at bedtime as needed. meclizine (ANTIVERT) 25 mg tab TAKE 1-2 TABLETS BY MOUTH FOUR TIMES A DAY NEEDED FOR DIZZINESS pantoprazole DR (PROTONIX) 40 mg tablet Take 40 mg by mouth once daily. scopolamine (TRANSDERM-SCOP) patch 1.5 mg/72 hr (delivers 1 mg over 3 days) Apply 1 Patch as directed every 72 hours as needed. simvastatin (ZOCOR) 10 mg tablet Take 10 mg by mouth daily at bedtime. triamcinolone acetonide (KENALOG) 0.1 % cream Apply 1 application to affected area once daily. eletriptan (RELPAX) 40 mg tablet TAKE 1 TABLET BY MOUTH AT ONSET OF MODERATE TO SEVERE MIGRAINE. MAY REPEAT DOSE IN 2 HOURS. MAX OF 2 DOSES IN 24 HOURS, 2 DAYS A WEEK levothyroxine (SYNTHROID) 50 mcg tablet Take 50 mcg by mouth once daily. blood sugar diagnostic (ONETOUCH VERIO TEST STRIPS) test strip 1 Strip once daily. gabapentin (NEURONTIN) 300 mg capsule Take 1 capsule by mouth three times a day. LABORATORY VALUES: WBC (k/uL) Date Value 10/17/2024 4.77 RBC (m/uL) Date Value 10/17/2024 4.02 Hemoglobin (g/dL) Date Value 10/17/2024 11.4 (L) Hematocrit (%) Date Value 10/17/2024 34.5 (L) MCV (fL) Date Value 10/17/2024 85.8 MCH (pg) Date Value 10/17/2024 28.4 MCHC (g/dL) Date Value 10/17/2024 33.0 RDW-CV (%) Date Value 10/17/2024 13.0 Platelet Count (k/uL) Date Value 10/17/2024 271 MPV (fL) Date Value 10/17/2024 9.3 Glucose (mg/dL) Date Value 10/17/2024 222 (H) BUN (mg/dL) Date Value 10/17/2024 12 Creatinine (mg/dL) Date Value 10/17/2024 0.76 Sodium (mmol/L) Date Value 10/17/2024 139 Potassium (mmol/L) Date Value 10/17/2024 4.2 Chloride (mmol/L) Date Value 10/17/2024 102 CO2 (mmol/L) Date Value 10/17/2024 25 Protein, Total (g/dL) Date Value 10/17/2024 6.5 Albumin (g/dL) Date Value 10/17/2024 4.1 Calcium, Total (mg/dL) Date Value 10/17/2024 9.4 Alkaline Phosphatase (U/L) Date Value 10/17/2024 134 (H) Bilirubin, Total (mg/dL) Date Value 10/17/2024 0.2 AST (U/L) Date Value 10/17/2024 16 ALT (U/L) Date Value 10/17/2024 15 Breast CA 15-3 (U/mL) Date Value 09/11/2024 28.4 11/18/2023 30.4 03/17/2023 25.5 DIAGNOSIS: (D47.2) MGUS (monoclonal gammopathy of unknown significance) (primary encounter diagnosis) Plan: B2 MICROGLOBULIN, COMPLETE BLOOD COUNT AND DIFFERENTIAL, COMPREHENSIVE METABOLIC PANEL, LACTATE DEHYDROGENASE, PHOSPHORUS INORGANIC, PROTEIN ELECTROPHORESIS SERUM W/INTERP, MONOCLONAL PROTEIN, SERUM (BLOOD), URIC ACID, CALCIUM, IONIZED, KAPPA/MARVIN,FREE,SER (C50.411, Z17.0) Malignant neoplasm of upper-outer quadrant of right breast in female, estrogen receptor positive (HCC) Plan: B2 MICROGLOBULIN, COMPLETE BLOOD COUNT AND DIFFERENTIAL, COMPREHENSIVE METABOLIC PANEL, LACTATE DEHYDROGENASE, PHOSPHORUS INORGANIC, PROTEIN ELECTROPHORESIS SERUM W/INTERP, MONOCLONAL PROTEIN, SERUM (BLOOD), URIC ACID, CALCIUM, IONIZED, KAPPA/MARVIN,FREE,SER (G62.0, T45.1X5A) Chemotherapy-induced neuropathy (HCC) Plan: B2 MICROGLOBULIN, COMPLETE BLOOD COUNT AND DIFFERENTIAL, COMPREHENSIVE METABOLIC PANEL, LACTATE DEHYDROGENASE, PHOSPHORUS INORGANIC, PROTEIN ELECTROPHORESIS SERUM W/INTERP, MONOCLONAL PROTEIN, SERUM (BLOOD), URIC ACID, CALCIUM, IONIZED, KAPPA/MARVIN,FREE,SER (E11.42) Diabetic polyneuropathy associated with type 2 diabetes mellitus (HCC) Plan: B2 MICROGLOBULIN, COMPLETE BLOOD COUNT AND DIFFERENTIAL, COMPREHENSIVE METABOLIC PANEL, LACTATE DEHYDROGENASE, PHOSPHORUS INORGANIC, PROTEIN ELECTROPHORESIS SERUM W/INTERP, MONOCLONAL PROTEIN, SERUM (BLOOD), URIC ACID, CALCIUM, IONIZED, KAPPA/MARVIN,FREE,SER PAST MEDICAL HISTORY Diagnosis Date Anemia Arthritis Breast cancer (HCC) Diabetes (HCC) Diverticulitis of colon Sal[place] virus infection Essential (primary) hypertension Fibrocystic breast GERD (gastroesophageal reflux disease) Hyperlipidemia Hypothyroidism IBS (irritable bowel syndrome) Malignant neoplasm of upper-outer quadrant of right breast in female, estrogen receptor positive (HCC) 02/21/2023 Migraines Nausea without vomiting 04/30/2021 PONV (postoperative nausea and vomiting) 10/21/2023 POTS (postural orthostatic tachycardia syndrome) Small bowel obstruction (HCC) Thyroid disease Thyroid nodule Vertigo Vitreous detachment of right eye PAST SURGICAL HISTORY Procedure Laterality Date ABDOMINAL SURGERY HX 2004 ADDITIONAL SPINAL FUSION 07/27/2004 APPENDECTOMY BX OF BREAST; INCISIONAL COLONOSCOPY HAND SURGERY HX HERNIA REPAIR HX 04/29/2021 Hiatal LASIK 2001 PAST SURGICAL HISTORY OF cervical fusion 2013, 2017 PAST SURGICAL HISTORY OF Right Foot PAST SURGICAL HISTORY OF Knee Arthroscopy w/ACL reconstruction x2 PAST SURGICAL HISTORY OF Lipoma resection PAST SURGICAL HISTORY OF Lumbar Discectomy PAST SURGICAL HISTORY OF Mass excision right axilla (benign) PAST SURGICAL HISTORY OF Small bowel resection SINUS SURGERY HX SMALL INTESTINE SURGERY HX TONSILLECTOMY HX UNLISTED STOMACH SURGERY Removal stomach polyps VAGINAL HYSTERECTOMY with appendectomy, Meckel's diverticulectomy Social History Tobacco Use Smoking status: Former Current packs/day: 0.00 Types: Cigarettes Quit date: 2016 Years since quittin.4 Passive exposure: Past Smokeless tobacco: Never Tobacco comments: quit smoking in 2014, on and off, 1/3 ppd at most Vaping Use Vaping status: Never Used Substance Use Topics Alcohol use: Not Currently Comment: rarely Drug use: Never FAMILY HISTORY Adopted: Yes Problem Relation Age of Onset Stroke Mother other (addisons) Maternal Grandmother I spent a total of 40 minutes on the date of service which included preparing to see the patient, [id number] patient care, completing clinical documentation, performing a medically appropriate examination, counseling and educating the patient/family/caregiver, ordering medications, tests, or procedures, independently interpreting results (not separately reported), communicating results to the patient/family/caregiver, and care coordination (not separately reported). Paulo Singh MD, CPE Hematology and Oncology Services Provided at: [place], [place] Scribe Attestation: This note was scribed by Renu Sidhu on October 17, 2024 under the direction and supervision of Dr. Paulo Singh. I attest that all of the information documented is correct to the best of my knowledge. Provider Attestation: I, Paulo Singh MD, attest that all information documented by the above scribe is correct, and was supervised by me and under my direction. CC: Dr. Zkee Joaquin [address] [facility] [address] [id number] [address] Makeda Osei [address] [facility] [address] [facility] [id number] [address] Rosalba John CNOVSP Observed: 10/17/2024 11:00 AM Status: COMPLETED Source: [facility] Visit (SP) Office ([place]) JYOTI THAO ([id number]) 1955 F Date Time Provider Department 10/17/24 11:00 AM PAULO SINGH During your visit today, we recorded the following information about you: Temperature Pulse Respiration Blood pressure 97.9 degrees 81/minute 16/minute 137/70 Weight Height 83.9 kg 1.676 m Paulo Singh MD 10/17/2024 12:52 PM Signed NAME: Jyoti Thao CLINIC NO.: [id number] DATE OF SERVICE: October 17, 2024 (Lenny) Some elements in this clinic note that are critical to medical decision making have been carefully reviewed and included from a prior clinic note dated: September 11, 2024 (Lenny) Referring Provider: Alfa Joaquin Additional Clinicians involved in Jyoti Thao's care: Abisai Chandra DIAGNOSIS: TNBC - right breast ASSESSMENT: 68 year old woman with 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 Following additional imaging, including MRI breast bilateral, CT CAP, echocardiogram she will be ready for initiation of neoadjuvant chemotherapy with immunotherapy. Preceding this the patient desired to have an opinion with one of our [facility] breast surgeons and may need lymph node sampling prior to start of therapy. Given TNBCa stage IIA high risk disease, will proceed with neoadjuvant systemic therapy. Neoadjuvant treatment with Keynote 512 - MRI, 4 cycles keytruda Carboplatin + taxol - MRI - 4 cycles keytruda AC MRI then surgery. Her genetic testing was negative. Appears to have good response with 2 cycles of therapy on examination of right breast. Completed Keytruda in February 2024 and has had right lumpectomy mid-October 2023. In October 2023, She was found to have imaging showing an abnormality that will need biopsied in the right breast that was a possible recurrence but turned out benign. She is seeing neurology for fatigue as well as neuropathy. She was found to have an M-spike. Will workup further. In the meanwhile, will need to aggressively manage her sugars. PLAN: Labs with port in 4 weeks RTC in 5 weeks - HPI: CASE HISTORY: Reverse Chronological Order 09/11/2024 - M-protein is present [place]: 20.8, Lambda: 20.3, K/L Ratio: 1.02 08/21/2024 - Bilateral Diagnostic Mammogram: Finding 1: Stable calcifications in the lateral left breast are probably benign. Follow-up with diagnostic mammogram is recommended in 6 months. Finding 2: The asymmetry in the upper outer quadrant of the right breast is benign. BI-RADS Category 3: Probably Benign 05/04/2024 - US Thyroid/Parathyroid: Thyroid nodule(s) present is/are clinically insignificant. No surveillance is advised. 03/14/2024 - Breast, right, at 11:00, 4 cm from the nipple, mass, Q clip, ultrasound-guided core biopsy: Benign breast parenchyma with markedly dense stromal fibrosis. Rare microcalcifications are present within benign breast. 02/21/2024 - Diagnostic Mammogram AND Ultrasound: Mammogram: Finding 1: Irregular mass in the right breast is suspicious of malignancy. An ultrasound guided biopsy is recommended. Findings were discussed with the patient at the time of examination. Finding 2: Calcifications in the left breast are probably benign. Follow-up in 6 months is recommended. Finding 3: Biopsy marker clips in both breasts are benign. BI-RADS Category 4: Suspicious Ultrasound: Finding 1: Ultrasound demonstrates an irregular mass measuring 1.0 x 0.8 x 0.9cm in the right breast at 11 o'clock located 4 cm from the nipple. Internal echotexture is hypoechoic. Color flow imaging demonstrates vascularity is not present. The ipsilateral axilla was surveyed, and no abnormal lymph nodes were visible. 12/21/2023-01/19/2024 - 20 fractions of radiation to right breast 11/02/2023 - Right breast lumpectomy: Dr. Meaghan Michaud. Right axillary sentinel lymph node, excision: - One lymph node, negative for carcinoma (0/1). B. Right breast, lumpectomy: - Residual invasive ductal carcinoma with treatment effect, see comment and synoptic report. - Prior biopsy site, biopsy clip, and Marianela shipping processor device. C, D, E, F, G, H. Right breast, multiple margins, excision: - The final inked margin is negative for carcinoma. ER-, CO-, HER2- 10/27/2023-03/08/2024 - 4 cycles single agent Keytruda 400mg q 6 weeks 10/26/2023 - Infrared activated electromagnetic reflector device placement for the mass in the right breast at 12 o'clock middle depth 5 cm from the nipple 10/12/2023 - MRI Breast: Continued interval treatment response to neoadjuvant systemic therapy of the known biopsy-proven malignancy in the 12:00 right breast, now measuring 8 mm (with previous serial measurements as above). No suspicious areas of enhancement in the left breast. No lymphadenopathy. Mild motion limitations. 09/26/2023 - US Extremity Nonvascular LT: 2 indeterminate hyperechogenic left axillary lesions measuring 0.7 and 0.6 cm. In light of the patient's invasive ductal carcinoma, metastatic disease to lymph nodes should be considered. 07/07/2023-09/15/2023 - 4 cycles A/C + Keytruda q 21 days 07/01/2023 - MRI Breast: BI-RADS 6 - Known Malignancy. Right Breast: 1.5 cm irregular enhancing mass in the right breast at 12:00 anterior depth corresponds with patient's known site of malignancy. This previously measured 2.2 cm in maximum dimension. 03/17/2023-06/10/2023 - 4 cycles days 1, 8, 15 q 21 days Carboplatin / Taxol / Keytruda 03/15/2023 - MRI Breast: 2.2 cm spiculated enhancing mass in the 12:00 anterior depth-middle depth right breast at site of biopsy-proven malignancy. No other definite suspicious areas of enhancement in either breast. No lymphadenopathy. 03/10/2023 - USG breast bx 2nd right breast lesion: - Negative for additional malignancy 03/09/2023 - CT CAP: Negative for metastatic disease. Hepatic steatosis. 01/20/2023 - Right breast mass biopsy: - Invasive ductal carcinoma grade 3 ER 0, CO 0 HER2 1+ by IHC negative. 01/20/2023 - Post-biopsy diagnostic mammography metallic marker placed in targeted location within the upper outer quadrant right breast. 01/17/2023 - Diagnostic Mammography: Right breast category 4 suspicious for malignancy US demonstrates bilobed hypoechoic mass with acoustic shadowing smaller component measuring 5.9 mm connected to a larger deeper 8.3 mm lesion with a connecting stalk measuring 2.3 mm. 12/2022 - Mid December felt a lump in her right breast 07/2022 - Normal mammogram Updated Visit, October 17, 2024: New Problem Jyoti Hdz returns today with Alex for a new problem. Labs completed last month per neurology revealed a positive m-spike and elevated kappa light chain. I suspect these abnormal results are due to inflammation. Inflammation may be caused with uncontrolled diabetes. We discussed some diet changes that can help decrease her glucose/A1c. She reports fatigue is progressing. Will consider seeing an infectious disease specialist for EBV. Updated Visit, September 11, 2024: Jyoti Hdz returns for a follow up. Recent diagnostic mammogram showed stable benign calcifications in the left breast and a benign asymmetry in the right breast. She denies any changes to the breast, pain is unchanged. She has a follow up with Dr. Reynoso next week, will defer my exam today. She complains of fatigue today due to EBV. But could also be due to weight gain. 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 Updated Visit, May 31, 2024: Jyoti Hdz returns with her , Alex. She had a biopsy of the right breast in 02/2024 - results benign. Her annual ultrasound of the thyroid confirmed clinically insignificant nodules. She complains of decreased stamina and bilateral foot neuropathy - treats with gabapentin 300mg TID. Will continue to follow up q 12 weeks. Chaperoned Breast Exam noted below. Updated Visit, March 08, 2024: Jyoti Hdz returns for her final Keytruda infusion. She had a mammogram and ultrasound on 02/20, an irregular mass that is suspicious for malignancy was seen in the right breast. She has a biopsy scheduled for next week. She reports she is still fatigued due to radiation. She had a syncopal episode recently. Updated Visit, January 26, 2024: Jyoti Hdz returns today for Keytruda. She completed about 4 weeks of radiation to the right breast. She endorses expected skin changes, although says it is improving. She is also experiencing fatigue. She also mentions she is overdue for an annual thyroid ultrasound, at [facility], to monitor nodules - will order at next visit. Deferred breast exam as Dr. John had recently examined her. Updated Visit, November 18, 2023: Had her right breast surgery and did very well. Pathology with responsive tumor and LN negative. TNBC. Some neuropathy continues. Breast is hard and had some post-op cellulitis that has cleared. Updated Visit, October 27, 2023: Jyoti Hdz returns today with Alex. MRI breast shows continued response to treatment. She developed pustules w/ itching on her arms, chest, AND legs and tingling/burning in her lips. She wonders if this was an allergic reaction so has discontinued some of her medications. She is wearing a cervical collar due to a pinched nerve in her neck. She complains of severe pain and occasional dizziness. She is unable to have an MRI for her neck since she cannot lay on her chest due to her upcoming lumpectomy. Updated Visit, September 08, 2023: Severe cold and sore throat last week causing her to cancel US. Alex called me and I had recommended ER for severe teeth and throat pain. She ended up not going. Continues to have numerous complaints of body aches, anxiety etc. But no definitive illness. Symptoms have resolved, but she would like another week to finish her recovery. Chaperoned Breast Exam noted below. Updated Visit, August 18, 2023: Jyoti Thao returns for follow-up and continued treatment. Overall, she is tolerating treatment well. She has been experiencing some tooth sensitivity. She has been using a TENS unit for her foot neuropathy. She denies any fevers, chills, night sweats or signs/symptoms of infection. No bleeding or abnormal bruising. She wishes to proceed with treatment as planned. Updated Visit, July 28, 2023: Jyoti Thao returns for follow-up and continued treatment. Overall, she is tolerating treatment well. She denies cough, shortness of breath and other pulmonary complaints. She denies any skin rashes. 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 She complains of feeling tired with treatment. She denies fevers, chills, night sweats and signs/symptoms of infection. No bleeding or abnormal bruising. Today she expresses some concerns about having her teeth cleaned. Updated Visit, July 07, 2023: Jyoti Hdz returns today with Alex. She has had a cold for a couple weeks, is finally now getting over it. She notes she will start wearing a mask when she goes out. Recent MRI shows response to treatment. Her fingernails and toenails are turning black - side effect of chemo. Also reports neuropathy in her feet and fingertips. Proceeding with C5 today. Chaperoned Breast Exam noted below. Updated Visit, May 27, 2023: Jyoti Hdz returns with Alex for follow up and to begin C4 of her treatment. She reports that the hydration has been helping. I encouraged her not to hesitate to reach out if she feels she needs more fluids. We reviewed her labs, which show decreases in blood counts so she is more anemic today. Her chemistries look great. She has not done a self-breast exam since I last saw her, we will conduct another prior to starting Adriamycin. I also will order a breast MRI. She will need education for the new regimen. She reports the only thing bothering her right now is some mild neuropathy in her toes, and some random brief shooting pains in her legs and feet. Her BGs have been running on average in the 150s-160s, with some days in the 130s. We briefly discussed possible timeline for finishing out her treatment course and what she will decide for her surgery. Updated Visit, April 29, 2023: Jyoti Hdz returns today with Alex for follow up. She is having a [...] a lot of fluids. Has seen the operation research analyst. Even though she does not necessarily feel [...] we should hold treatment for a week. Chaperoned Breast Exam noted below. Updated Visit, April 08, 2023: Jyoti Hdz returns today for follow up accompanied by her Alex. She has lost the rest of her [...] her that I see early response already. Chaperoned Breast Exam noted below. Updated Visit, April 04, 2023: Jyoti Thao received cycle 1 day 1 carboplatin, Taxol [...] Updated Visit, March 17, 2023: Here with Alex. Is Tu Cruz's mother. Ready for neoadjuvant treatment given high risk disease. Reviewed MRI, biopsy of second spot was negative. Thoroughly reviewed patients treatment plan. Initial Visit, February 21, 2023: Jyoti Thao presents today Hematology and Oncology evaluation. She is a 67 year old female who has a history of POTS syndrome and is adopted who is [employer] genetic testing is negative. She gives a story of having a normal mammogram in July 2022 and subsequently felt a lump in mid December 2022. She underwent imaging in [facility] and then had a biopsy that [...] this interferes with her plans to buy [employer] in [place] and move there this year with her Tim. Despite high risk disease and the need for a protracted course of neoadjuvant chemotherapy according to keynote 512, I think she will be able [place] get to the cabin [place] times. I reassured her that she appears to have curable disease and indeed she felt better. Although her work-up was initiated locally, she would like to transition her care to [facility] and I will make appropriate referrals. M grandmother Cheatham's Mother stroke Birthfather?? Heart attack in 70s Chaperoned Breast Exam noted below. - REVIEW OF SYSTEMS Per HPI and otherwise negative by full review of organ systems. - ECOG PERFORMANCE STATUS: 0 PHYSICAL EXAMINATION: Vitals: BP 137/70 Pulse 81 Temp (Src) 97.9 (Temporal) Resp 16 Ht 5' 5.984 (1.68m) Wt 184 lb 15.5 oz (83.9kg) SpO2 97% BMI 29.87 kg/(m2). Body surface area is 1.98 meters squared. Exam limited to gross visualization where appropriate. Gen.: This is an age-appropriate patient in no acute distress. Head: Appears atraumatic with no visible lesions. Eyes: Pupils equally round and reactive to light, extraocular muscles are intact. Neck: Supple. Respiratory: Appears to be respiring comfortably. Neurologic: Nonfocal to gross visualization. Alert and oriented ?3. Psychiatric: No evidence of inappropriate depression but remains highly anxious. Skin: Visible areas of skin without lesions, wounds or petechiae. Erythematous blanching rash on her forearms and around the port on her chest, will monitor. Prior exams for reference: Chaperoned Breast Exam May 31, 2024 (Sara Clinton) : Right breast shows radiation changes and slight lymphedema, otherwise a normal exam, Left breast is normal to palpation. [place] exam is negative bilaterally. Chaperoned Breast Exam September 08, 2023 (Tesha Evangelista) : Right breast is tender but no discreet masses, Left breast is mildly tender and normal. [place] exam is negative bilaterally. Chaperoned Breast Exam July 07, 2023 (Sara Clinton) : Right breast is tender but no discreet masses, Left breast is mildly tender and normal. [place] exam is negative bilaterally. Chaperoned Breast Exam April 29, 2023 (Sara Clinton) : Right breast shows continued improvement, now lesion measure 0.5 cm, Left breast was not examined. Chaperoned Breast Exam April 08, 2023 (Evan Lambert): Right breast mass at 12 o' clock just above the NAC definitely feels smaller (approx. 1.5 cm), Left breast is normal. Chaperoned Breast Exam February 21, 2023 (Evan Lambert): Fairly tender right breast with a 3 cm dense nodule just above the areola in the 11 o'clock position approximately 1 cm from the nipple. She has a secondary small nodule adjacent and more medial but otherwise breast is largely benign and actually socorro examination is negative. - ALLERGIES: ALLERGIES Allergen Reactions Hydrocodone Other: See Comments, GI Upset Headaches Oxycodone GI Upset Can take 1/2 tab, but full tab makes her sick 12 Hour Cold Capsule Intolerance Adhesive Other: See Comments Aller-Chlor Deconge* Unknown Chlorpheniramine-Ps* Unknown [id number]-[id number]-Tmggc* Itching Decongest Multi-Act* Other: See Comments Diazepam Other: See Comments sick-headache Diphenhydramine Intolerance Levofloxacin Intolerance Nalbuphine Rash Progesterone Other: See Comments, GI Upset Speeds up metabolism Weight gain and voice hoarse Promethazine Unknown Pseudoephedrine Other: See Comments Other Reaction(s): Hyperactive, severe stimulation Other Reaction(s): Intolerance ANY Decongestant-Hyperactive Pseudoephedrine-Dm-* Intolerance ANY Decongestant-Hyperactive Yzkzvfb-Lic-Nap Red* Other: See Comments Other Reaction(s): Unknown Tizanidine Hcl Itching, Other: See Comments Morphine Unknown, GI Upset, Vomiting, Other: See Comments Migraine Tramadol Itching, Unknown Tooth sensitivity Only tolerates low dose Only tolerates low dose MEDICATIONS: Alpha Lipoic Acid 600 mg cap Take 1 capsule by mouth once daily. metFORMIN (GLUCOPHAGE) 500 mg tablet Take 1 tablet by mouth every 12 hours. ondansetron (ZOFRAN) 8 mg tablet Take 1 tablet by mouth every 8 hours as needed for nausea/vomiting. ibuprofen (MOTRIN) 600 mg tablet Take 400 mg by mouth at bedtime as needed. meclizine (ANTIVERT) 25 mg tab TAKE 1-2 TABLETS BY MOUTH FOUR TIMES A DAY NEEDED FOR DIZZINESS pantoprazole DR (PROTONIX) 40 mg tablet Take 40 mg by mouth once daily. scopolamine (TRANSDERM-SCOP) patch 1.5 mg/72 hr (delivers 1 mg over 3 days) Apply 1 Patch as directed every 72 hours as needed. simvastatin (ZOCOR) 10 mg tablet Take 10 mg by mouth daily at bedtime. triamcinolone acetonide (KENALOG) 0.1 % cream Apply 1 application to affected area once daily. eletriptan (RELPAX) 40 mg tablet TAKE 1 TABLET BY MOUTH AT ONSET OF MODERATE TO SEVERE MIGRAINE. MAY REPEAT DOSE IN 2 HOURS. MAX OF 2 DOSES IN 24 HOURS, 2 DAYS A WEEK levothyroxine (SYNTHROID) 50 mcg tablet Take 50 mcg by mouth once daily. blood sugar diagnostic (ONETOUCH VERIO TEST STRIPS) test strip 1 Strip once daily. gabapentin (NEURONTIN) 300 mg capsule Take 1 capsule by mouth three times a day. - LABORATORY VALUES: WBC (k/uL) Date Value 10/17/2024 4.77 RBC (m/uL) Date Value 10/17/2024 4.02 Hemoglobin (g/dL) Date Value 10/17/2024 11.4 (L) Hematocrit (%) Date Value 10/17/2024 34.5 (L) MCV (fL) Date Value 10/17/2024 85.8 MCH (pg) Date Value 10/17/2024 28.4 MCHC (g/dL) Date Value 10/17/2024 33.0 RDW-CV (%) Date Value 10/17/2024 13.0 Platelet Count (k/uL) Date Value 10/17/2024 271 MPV (fL) Date Value 10/17/2024 9.3 Glucose (mg/dL) Date Value 10/17/2024 222 (H) BUN (mg/dL) Date Value 10/17/2024 12 Creatinine (mg/dL) Date Value 10/17/2024 0.76 Sodium (mmol/L) Date Value 10/17/2024 139 Potassium (mmol/L) Date Value 10/17/2024 4.2 Chloride (mmol/L) Date Value 10/17/2024 102 CO2 (mmol/L) Date Value 10/17/2024 25 Protein, Total (g/dL) Date Value 10/17/2024 6.5 Albumin (g/dL) Date Value 10/17/2024 4.1 Calcium, Total (mg/dL) Date Value 10/17/2024 9.4 Alkaline Phosphatase (U/L) Date Value 10/17/2024 134 (H) Bilirubin, Total (mg/dL) Date Value 10/17/2024 0.2 AST (U/L) Date Value 10/17/2024 16 ALT (U/L) Date Value 10/17/2024 15 Breast CA 15-3 (U/mL) Date Value 09/11/2024 28.4 11/18/2023 30.4 03/17/2023 25.5 - DIAGNOSIS: (D47.2) MGUS (monoclonal gammopathy of unknown significance) (primary encounter diagnosis) Plan: B2 MICROGLOBULIN, COMPLETE BLOOD COUNT AND DIFFERENTIAL, COMPREHENSIVE METABOLIC PANEL, LACTATE DEHYDROGENASE, PHOSPHORUS INORGANIC, PROTEIN ELECTROPHORESIS SERUM W/INTERP, MONOCLONAL PROTEIN, SERUM (BLOOD), URIC ACID, CALCIUM, IONIZED, KAPPA/MARVIN,FREE,SER (C50.411, Z17.0) Malignant neoplasm of upper-outer quadrant of right breast in female, estrogen receptor positive (HCC) Plan: B2 MICROGLOBULIN, COMPLETE BLOOD COUNT AND DIFFERENTIAL, COMPREHENSIVE METABOLIC PANEL, LACTATE DEHYDROGENASE, PHOSPHORUS INORGANIC, PROTEIN ELECTROPHORESIS SERUM W/INTERP, MONOCLONAL PROTEIN, SERUM (BLOOD), URIC ACID, CALCIUM, IONIZED, KAPPA/MARVIN,FREE,SER (G62.0, T45.1X5A) Chemotherapy-induced neuropathy (HCC) Plan: B2 MICROGLOBULIN, COMPLETE BLOOD COUNT AND DIFFERENTIAL, COMPREHENSIVE METABOLIC PANEL, LACTATE DEHYDROGENASE, PHOSPHORUS INORGANIC, PROTEIN ELECTROPHORESIS SERUM W/INTERP, MONOCLONAL PROTEIN, SERUM (BLOOD), URIC ACID, CALCIUM, IONIZED, KAPPA/MARVIN,FREE,SER (E11.42) Diabetic polyneuropathy associated with type 2 diabetes mellitus (HCC) Plan: B2 MICROGLOBULIN, COMPLETE BLOOD COUNT AND DIFFERENTIAL, COMPREHENSIVE METABOLIC PANEL, LACTATE DEHYDROGENASE, PHOSPHORUS INORGANIC, PROTEIN ELECTROPHORESIS SERUM W/INTERP, MONOCLONAL PROTEIN, SERUM (BLOOD), URIC ACID, CALCIUM, IONIZED, KAPPA/MARVIN,FREE,SER PAST MEDICAL HISTORY Diagnosis Date Anemia Arthritis Breast cancer (HCC) Diabetes (HCC) Diverticulitis of colon Salty Bolton virus infection Essential (primary) hypertension Fibrocystic breast GERD (gastroesophageal reflux disease) Hyperlipidemia Hypothyroidism IBS (irritable bowel syndrome) Malignant neoplasm of upper-outer quadrant of right breast in female, estrogen receptor positive (HCC) 02/21/2023 Migraines Nausea without vomiting 04/30/2021 PONV (postoperative nausea and vomiting) 10/21/2023 POTS (postural orthostatic tachycardia syndrome) Small bowel obstruction (HCC) Thyroid disease Thyroid nodule Vertigo Vitreous detachment of right eye PAST SURGICAL HISTORY Procedure Laterality Date ABDOMINAL SURGERY HX 2004 ADDITIONAL SPINAL FUSION 07/27/2004 APPENDECTOMY BX OF BREAST; INCISIONAL COLONOSCOPY HAND SURGERY HX HERNIA REPAIR HX 04/29/2021 Ricco MARC 2002 PAST SURGICAL HISTORY OF cervical fusion 2013, 2018 PAST SURGICAL HISTORY OF Right Foot PAST SURGICAL HISTORY OF Knee Arthroscopy w/ACL reconstruction x2 PAST SURGICAL HISTORY OF Lipoma resection PAST SURGICAL HISTORY OF Lumbar Discectomy PAST SURGICAL HISTORY OF Mass excision right axilla (benign) PAST SURGICAL HISTORY OF Small bowel resection SINUS SURGERY HX SMALL INTESTINE SURGERY HX TONSILLECTOMY HX UNLISTED STOMACH SURGERY Removal stomach polyps VAGINAL HYSTERECTOMY with appendectomy, Meckel's diverticulectomy Social History Tobacco Use Smoking status: Former Current packs/day: 0.00 Types: Cigarettes Quit date: 2016 Years since quittin.4 Passive exposure: Past Smokeless tobacco: Never Tobacco comments: quit smoking in 2015, on and off, 1/3 ppd at most Vaping Use Vaping status: Never Used Substance Use Topics Alcohol use: Not Currently Comment: rarely Drug use: Never FAMILY HISTORY Adopted: Yes Problem Relation Age of Onset Stroke Mother other (addisons) Maternal Grandmother I spent a total of 40 minutes on the date of service which included preparing to see the patient, [id number] patient care, completing clinical documentation, performing a medically appropriate examination, counseling and educating the patient/family/caregiver, ordering medications, tests, or procedures, independently interpreting results (not separately reported), communicating results to the patient/family/caregiver, and care coordination (not separately reported). Paulo Singh MD, CPE [facility] Provided at: [place], [place] Scribe Attestation: This note was scribed by Renu Sidhu on October 17, 2024 under the direction and supervision of Dr. Paulo Singh. I attest that all of the information documented is correct to the best of my knowledge. Provider Attestation: I, Paulo Singh MD, attest that all information documented by the above scribe is correct, and was supervised by me and under my direction. CC: Dr. Zeke Joaquin [address] [facility] [address] [facility] [id number] [address] Makeda Osei [address] [facility] [id number] 10/17/2024 11:14 AM Signed Labs with port in 4 weeks RTC in 5 weeks Referring Provider: SELF [200] Allergies As of Date: 10/17/2024 Noted Allergy Reaction HYDROCODONE 02/10/2018 14 - Other: See Comments 8 - GI Upset Comments: Headaches OXYCODONE 04/18/2018 8 - GI Upset Comments: Can take 1/2 tab, but full tab makes her sick 12 HOUR COLD CAPSULE 11/05/2019 5 - Intolerance ADHESIVE 03/01/2022 14 - Other: See Comments ALLER-CHLOR DECONGESTANT 03/01/2022 16 - Unknown CHLORPHENIRAMINE-PSEUDOEPHED 02/21/2023 16 - Unknown [id number] 09/08/2017 9 - Itching DECONGEST MULTI-ACTION 12/03/2019 [...] severe stimulation Other Reaction(s): Intolerance ANY Decongestant-Hyperactive [id number] 04/02/2019 5 - Intolerance Comments: ANY Decongestant-Hyperactive [id number] REDUCTASE INHIBIT*08/24/2021 14 - Other: See Comments Comments: Other Reaction(s): Unknown TIZANIDINE HCL 09/30/2023 9 - Itching 14 - Other: See Comments MORPHINE 07/05/2011 16 - Unknown 8 - GI Upset 11 - Vomiting 14 - Other: See Comments Comments: Migraine TRAMADOL 09/05/2013 9 - Itching 16 - Unknown Comments: Tooth sensitivity Only tolerates low dose Only tolerates low dose Date Reviewed: 10/17/2024 Reviewed by: Yodit Collier MA - Fully Assessed Reason for Visit: Breast Cancer [519] Cmt: New problem Primary Visit Diagnosis:MGUS (monoclonal gammopathy of unknown significance) [D47.2] Other Visit Diagnoses:Malignant neoplasm of upper-outer quadrant of right breast in female, estrogen receptor positive (HCC) [C50.411, Z17.0] 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, T45.1X5A] Diabetic polyneuropathy associated with type 2 diabetes mellitus (HCC) [E11.42] Order(s):B2 MICROGLOBULIN [SQB2M] Order #: [id number] FUTURE COMPLETE BLOOD COUNT AND DIFFERENTIAL [SQCBCDIF] Order #: [id number] FUTURE COMPREHENSIVE METABOLIC PANEL [SQCMP] Order #: [id number] FUTURE LACTATE DEHYDROGENASE [SQLD6] Order #: [id number] FUTURE PHOSPHORUS INORGANIC [SQPHOS] Order #: [id number] FUTURE PROTEIN ELECTROPHORESIS SERUM W/INTERP [SQSEPG] Order #: [id number] FUTURE MONOCLONAL PROTEIN, SERUM (BLOOD) [SQSERMPA] Order #: [id number] FUTURE URIC ACID [SQURIC] Order #: [id number] FUTURE CALCIUM, IONIZED [SQICA] Order #: [id number] FUTURE KAPPA/MARVIN,FREE,SER [SQKLFRS] Order #: [id number] FUTURE Level of Service: OFFICE/OUTPATIENT ESTABLISHED [facility] 40 MIN [91910] Additional E/M codes: VISIT CPLX INHERENT EANDM ASSOC WITH MED * Disposition: Return in about 5 weeks (around 11/21/2024). Follow-up and Disposition History for Encounter Date Provider Department Center 10/17/2024 [id number] [facility] Prescriptions as of 10/17/2024 - Alpha Lipoic Acid 600 mg cap Take 1 capsule by mouth once daily. - gabapentin (NEURONTIN) 300 mg capsule Take 1 capsule by mouth three times a day. - metFORMIN (GLUCOPHAGE) 500 mg tablet Take 1 tablet by mouth every 12 hours. - ondansetron (ZOFRAN) 8 mg tablet Take 1 tablet by mouth every 8 hours as needed for nausea/vomiting. - ibuprofen (MOTRIN) 600 mg tablet Take 400 mg by mouth at bedtime as needed. - meclizine (ANTIVERT) 25 mg tab TAKE 1-2 TABLETS BY MOUTH FOUR TIMES A DAY NEEDED FOR DIZZINESS - pantoprazole DR (PROTONIX) 40 mg tablet Take 40 mg by mouth once daily. - scopolamine (TRANSDERM-SCOP) patch 1.5 mg/72 hr (delivers 1 mg over 3 days) Apply 1 Patch as directed every 72 hours as needed. - simvastatin (ZOCOR) 10 mg tablet Take 10 mg by mouth daily at bedtime. - triamcinolone acetonide (KENALOG) 0.1 % cream Apply 1 application to affected area once daily. - eletriptan (RELPAX) 40 mg tablet TAKE 1 TABLET BY MOUTH AT ONSET OF MODERATE TO SEVERE MIGRAINE. MAY REPEAT DOSE IN 2 HOURS. MAX OF 2 DOSES IN 24 HOURS, 2 DAYS A WEEK - levothyroxine (SYNTHROID) 50 mcg tablet Take 50 mcg by mouth once daily. - blood sugar diagnostic ([employer] VERIO TEST STRIPS) test strip 1 Strip once daily. Problem List As Of Date 10/17/2024 Noted Resolved Paraesophageal hernia [K44.9] 02/26/2021 Hiatal hernia with gastroesophageal reflux [K44*01/22/1996 Diabetes type 2, controlled (HCC) [E11.9] 02/14/2017 Mixed hyperlipidemia [E78.2] 07/05/2011 Essential (primary) hypertension [I10] 04/27/2021 Postural orthostatic tachycardia syndrome [G90.*10/24/2017 Migraine [G43.909] 04/27/2021 Hiatal hernia [K44.9] 04/29/2021 Obesity, Class I, BMI 30-34.9 [E66.811] 04/30/2021 Nausea without vomiting [R11.0] 04/30/2021 Malignant neoplasm of upper-outer quadrant of r*02/21/2023 Malignant neoplasm of central portion of right *04/29/2023 Immunotherapy [Z29.89] 04/29/2023 Thyroiditis [E06.9] 04/29/2023 Blood glucose elevated [R73.9] 04/29/2023 PONV (postoperative nausea and vomiting) [R11.2*10/21/2023 Diabetic polyneuropathy associated with type 2 *09/25/2024 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, T*09/25/2024 Neuropathic pain [M79.2] 09/25/2024 Disturbance of skin sensation [R20.9] 09/25/2024 Abnormality of gait and mobility [R26.9] 09/25/2024 Personal history of malignant neoplasm of breas*09/25/2024 Spinal stenosis, cervical region [M48.02] 09/25/2024 Spinal stenosis of lumbar region [M48.061] 09/25/2024 Postural orthostatic tachycardia syndrome (POTS*09/25/2024 Monoclonal gammopathy [D47.2] 10/09/2024 Abnormal serum protein test [R77.8] 10/09/2024 Zinc deficiency [E60] 10/09/2024 Other instructions from your clinician: Labs with port in 4 weeks RTC in 5 weeks Encounter Status:Closed by PAULO SINGH on 10/17/24 CANCER AG15-3 SERPL-ACNC Collected: 10:25 AM Status: F Source: [facility] Order Comment: Specimen Type : BLOOD SPECIMEN Ordering Facility: [facility] Address: [address] [place] [address] TYPE CODE TESTS RESULT OUT OF RANGE REFERENCE UNITS LAB 6875-9(LOINC) Cancer Ag15-3 SerPl-aCnc 26.5 High <26.0 U/mL Result Comment: The CA 15-3 test methodology used is the Electrochemiluminescence Immunoassay by [employer]. Results obtained with different methods or kits cannot be used interchangeably. Performed By: #### [id number] ## ## [facility] CLIA [id number] [address] [place] [address] STATES OF [facility] CBC W AUTO DIFF BLD Collected: 10/17/2024 10:25 AM S tatus: F Source: [facility] Order Comment: Specimen Type : BLOOD SPECIMEN Ordering Facility: [facility] Address: [address] [place] [address] TYPE CODE TESTS RESULT OUT OF RANGE REFERENCE UNITS LAB 6690-2(LOINC) WBC # Bld Auto 4.77 3.70-11.00 k/uL LAB 789-8(LOINC) RBC # Bld Auto 4.02 3.90-5.20 m/ uL LAB 718-7(LOINC) Hgb Bld-mCnc 11.4 Low 11.5-15.5 g/dL LAB 4544-3(LOINC) Hct VFr Bld Auto 34.5 Low 36.0-46.0 % LAB 787-2([facility]) MCV RBC Auto 85.8 80.0-100.0 fL LAB 785-6([facility]) MCH RBC Qn Auto 28.4 26.0-34.0 p g LAB 786-4([facility]) MCHC RBC Auto-mCnc 33.0 30.5-36.0 g/dL LAB 49141-1([facility]) RDW RBC-Rto 13.0 11.5-15.0 % LAB 777-3([facility]) Platelet # Bld Auto 271 150-400 k/uL LAB 36664-8([facility]) PMV Bld Auto 9.3 9.0-12.7 fL LAB 770-8([facility]) Neutrophils/leuk NFr Bld Auto 64.6 % LAB 751-8([facility]) Neutrophils # Bld Auto 3.08 1.45-7.50 k/uL LAB 736-9([facility]) Lymphocytes/leuk NFr Bld Auto 23.3 % LAB 731-0([facility]) Lymphocytes # Bld Auto 1.11 1.00-4.00 k/uL LAB 5905-5([facility]) Monocytes/leuk NFr Bld Auto 8.2 % LAB 742-7([facility]) Monocytes # Bld Auto 0.39 <0.87 k/uL LAB 713-8([facility]) Eosinophil/leuk NFr Bld Auto 2.9 % LAB 711-2([facility]) Eosinophil # Bld Auto 0.14 <0.46 k/uL LAB 706-2([facility]) Basophils/leuk NFr Bld Auto 0.6 % LAB 704-7([facility]) Basophils # Bld Auto 0.03 <0.11 k/uL LAB 26697-4([facility]) Imm Granulocytes/dominga k NFr Bld Auto 0.4 % LAB 11033-6([facility]) Imm Granulocytes # Bld Auto <0.03 <0.10 k/uL LAB 51105-6([facility]) nRBC/100 WBC Bld-Rto 0.0 /100 WBC LAB 771-6([facility]) nRBC # Bld Auto <0.01 <0.01 k/u L LAB 76744-3([facility]) Differential method Bld Auto Performed By: #### 43767-9 # ### [facility] CLIA [id number] [address] [place] [address] COMP METAB 2000 PNL SERPL Collected: 10:25 AM Status: F Source: [facility] Order Comment: Specimen Type : BLOOD SPECIMEN Ordering Facility: [facility] Address: [address] [place] [address] TYPE CODE TESTS RESULT OUT OF RANGE REFERENCE UNITS LAB 2885-2(LOINC) Prot SerPl-mCnc 6.5 6.3-8.0 g/dL LAB 1751-7(LOINC) Albumin SerPl-mCnc 4.1 3.9-4.9 g/dL LAB 69114-2(LOINC) Calcium SerPl-mCnc 9.4 8.5-10.2 mg/dL LAB 1975-2(LOINC) Bilirub SerPl-mCnc 0.2 0.2-1.3 mg/dL LAB 6768-6(LOINC) ALP SerPl-cCnc 134 High 34-123 U/L LAB 1920-8(LOINC) AST SerPl-cCnc 16 13-35 U/L LAB 1742-6(LOINC) ALT SerPl-cCnc 15 7-38 U/L LAB 2345-7(LOINC) Glucose SerPl-mCnc 222 High 74-99 mg/dL Result Comment: The [place] Diabetes Association (ADA) provides guidance for cutoff values for fasting glucose and random glucose. The ADA defines fasting as no caloric intake for at least 8 hours. Fasting plasma glucose results between 100 to 125 mg/dL indicate increased risk for diabetes (prediabetes). Fasting plasma glucose results greater than or equal to 126 mg/dL meet the criteria for diagnosis of diabetes. In the absence of unequivocal hyperglycemia, results should be confirmed by repeat testing. In a patient with classic symptoms of hyperglycemia or hyperglycemic crisis, random plasma glucose results greater than or equal to 200 mg/dL meet the criteria for diagnosis of diabetes. Reference: Standards of Medical Care in Diabetes 2016, [place] [employer] Association. Diabetes Care. 2016.39(Suppl 1). LAB 3094-0(LOINC) BUN SerPl-mCnc 12 7-21 mg/ dL LAB 2160-0(LOINC) Creat SerPl-mCnc 0.76 0.58-0.96 mg/dL LAB 2951-2(LOINC) Sodium SerPl-sCnc 139 136-144 mmol/L LAB 2823-3(LOINC) Potassium SerPl-sCnc 4.2 3.7-5.1 mmol/L LAB 2075-0(LOINC) Chloride SerPl-sCnc 102 98-107 mmol/L LAB 2028-9(LOINC) CO2 SerPl-sCnc 25 22-30 mmo l/L LAB 76635-2(LOINC) Anion Gap SerPl-sCnc 12 8-15 mmol/L LAB 10983-0(LOINC) Creatinine + eGFR Pnl SerPlBld 86 >=60 mL/min/1 .73m??? Result Comment: Estimated Gl omerular Filtration Rate (eGFR) is calculated using the 2020 CKD-EPI creatinine equation. This equation utilizes serum creatinine, sex, and age as parameters. The creatinine assay has traceable calibration to isotope dilution-mass spectrometry. Refer to KDIGO guidelines for clinical interpretation. In patients with unstable renal function, e.g. those with acute kidney injury, the eGFR may not accurately reflect actual GFR. Performed By: #### 14808-1 # ### [facility] CLIA [id number] [address] [place], [place] [address] PROGRESS Observed: 10/09/2024 11:58 AM Status: COMPLETED Source: [facility] HNO ID: [id number] Author: SUSANA MORALES MD Service: ? Author Type: Physician Type: Progress Notes Filed: 10/09/2024 12:22 Note Text: ESTABLISHED PATIENT DISTANCE HEALTH VISIT Encounter completed via virtual visit (audio and video) using [employer] software Provider location during distance health encounter: [facility] Patient location during distance health encounter: Home I have communicated my name and active licensure. The patient's identity and physical location were verified at the time of this visit. Either the patient (as in this case) or their legal sales representative womens health has been informed of the risks and benefits of, and alternatives to treatment through a remote evaluation and consents to proceed with the evaluation remotely. Date of last clinic visit : 09/11/2024 Current neuromuscular medicine diagnosis(es): Polyneuropathy (metabolic syndrome/DM-related, chemo-related) Subjective/Interval developments: The patient is a 68-year-old female with a history of chemotherapy-induced neuropathy, presenting for follow-up. The patient was last seen on 09/11/2024. Since then, she has been using a topical gel prescribed by her brick setter operator, containing diclofenac, gabapentin, prilocaine, and lidocaine, for neuropathy in her feet. She uses it sparingly due to its cost and limited effectiveness, preferring to reserve it for severe episodes. She is currently taking gabapentin 300 mg three times daily and does not wish to increase the dosage due to a past allergic reaction involving pustules on her upper body when she combined gabapentin with hydrocodone and tizanidine. She has not taken hydrocodone or tizanidine since the reaction. She believes that neuropathic pain score is about the same, although she seems to be tolerating the symptoms overall better. She began taking alpha-lipoic acid 600 mg daily about a week after her last visit. She does not endorse any adverse effects from this supplement. She reports a few preventable falls, which she describes as silly and not due to weakness. She remains active, engaging in walking and hiking, and plans to continue these activities. She manages her POTS with lifestyle modifications and sees Dr. Jayna Goldman at the [facility] annually for this condition. She has a history of spinal stenosis and previous surgeries, including neck fusion. She is cautious with her movements to avoid exacerbating her condition and does not currently wish to pursue additional spinal surgery. She is under the care of her oncologist, Dr. Paulo Singh, and reports that her recent scans show she is doing well. Past Diagnostic Results: Labs - Serum Immunofixation: M protein present- IgG lambda monoclonal gammopathy - [place] Free Light Chain: 20.8 mg/L (slightly elevated; normal 3.3-19.4 mg/L). - Vitamin B1: Elevated. - Vitamin B12: Normal. - Vitamin B6: Normal. - Vitamin E: Normal. - Zinc: 57 mcg/dL (slightly low; normal 60-130 mcg/dL). Objective: (what is observable/audible via web cam AND gloria, if applicable) Appears to be with normal mood and affect; facies and facial movements symmetrical, EOMs appear intact and conjugate, no observable ptosis. Speech and voice WNL. Interval studies review: As per HPI Latest Ref Rng 09/11/2024 Transglutaminase IgA Abs <4 U/mL <2 Transglutaminase IgA Abs Interpretation Negative Negative Interpretation (Celiac Screen) No serological evidence of celiac disease, however, if celiac disease is clinically suspected and patient is not on gluten-free diet, histological diagnosis may be considered. HLA testing may help with risk assessment. Gliadin Ab, IgA <20 Units 10 Gliad Deamidated IgA Qual Negative, Test not Indicated Negative MPA Result No M protein is identified. M protein is present. ! Interpretation (MPA) Atypical restricted bands are present in the IgG and lambda regions. Consistent with IgG lambda monoclonal gammopathy. Staff Review (MPA) Reviewed by Saundra Gonsalez MD [place] Free, Serum 3.3 - 19.4 mg/L 20.8 (H) Lambda Free, Serum 5.7 - 26.3 mg/L 20.3 K/L Ratio, Serum 0.26 - 1.65 1.02 Vitamin E-alpha 6.0 - 23.0 mg/L 10.3 Vitamin E-gamma 0.3 - 3.2 mg/L 1.8 Sm Antibody Negative Negative Anti-Sm <1.0 AI <0.2 CORRECTIONAL PROGRAM OFFICER Antibody QUAL Negative Negative Anti-CORRECTIONAL PROGRAM OFFICER <1.0 AI 0.2 SSA Antibody Qual Negative Negative Anti-SSA <1.0 AI <0.2 Anti-SSB <1.0 AI <0.2 SSB Antibody Qual Negative Negative CENTROMERE AB QUAL Negative Negative Centromere Ab <1.0 AI <0.2 Scleroderma Ab Qual Negative Negative Scl-70 Abs, EIA <1.0 AI <0.2 MADELIN 1 ANTIBODY QUAL Negative Negative Madelin 1 Antibody <1.0 AI <0.2 Ribosomal CORRECTIONAL PROGRAM OFFICER Qualitative Negative Negative Ribosomal CORRECTIONAL PROGRAM OFFICER Ab <1.0 AI <0.2 Chromatin Ab Qual Negative Negative Chromatin Ab <1.0 AI <0.2 Copper 80 - 155 ug/dL 128 Methylmalonic Acid <=0.40 umol/L 0.14 Vitamin B1 (TDP), Whole Blood 84.3 - 213.3 nmol/L 230.1 (H) Vitamin B12 232 - 1,245 pg/mL 665 Vitamin B6, Plasma 20.0 - 125.0 nmol/L 35.1 Zinc 60 - 120 ug/dL 57 (L) IgA 70 - 400 mg/dL 227 Legend: ! Abnormal (H) High (L) Low Assessment: 1. Mrs. Thao is a pleasant 68-year-old female with a history of breast cancer, diabetes mellitus T2 (A1c 7.1% 01/2024), and POTS, presenting for evaluation of neuropathic symptoms (onset during chemotherapy 02/2023). 1. Diabetic polyneuropathy associated with type 2 diabetes mellitus (HCC) (E11.42)- The patient was counseled extensively on the implication of poorly controlled diabetes and other elements of the metabolic syndrome on the symptom exacerbation and progression of peripheral neuropathy. The mainstay of management will be meticulous glycemic control in the context of other lifestyle (including weight loss, exercise and dietary) measures in this regard, as well as antidiabetic medication adherence. She will be following up with her primary care physician accordingly. 2. 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 No current plans for additional chemotherapy (to the extent known). 3. Neuropathic pain (M79.2) 4. Disturbance of skin sensation (R20.9) - Neuropathic symptoms began in March 2023 following chemotherapy for breast cancer, including four cycles of Keytruda, carboplatin, and Taxol. - Symptoms include severe numbness (10/10) and intermittent sharp pain (7-8/10) in both feet, with no involvement of hands or fingers. - Currently taking gabapentin 300 mg TID; discussed potential increase in dosage if needed (currently wishes to defer, to minimize side effects). - Initiated alpha lipoic acid 600 mg PO daily to provide neuroprotection and potentially reduce symptoms (only been a few weeks on this). - May use recently obtained compounded topical gel (containing diclofenac, gabapentin, lidocaine, prilocaine) as needed for breakthrough symptoms in the feet. 5. Abnormality of gait and mobility (R26.9) - No current use of assistive devices; falls reported are preventable and not due to weakness. - Encouraged continuation of physical activity, including walking and hiking, as it promotes circulation and nerve stimulation. - Advised wearing protective footwear to prevent injuries due to numbness. - Scheduled follow-up with brick setter operator for foot symptoms evaluation and management. 6. Monoclonal gammopathy (D47.2) 7. Abnormal serum protein test (R77.8) - Serum immunofixation revealed presence of M protein; kappa free light chain slightly elevated at 20.8 mg/L (normal range: 3.3-19.4 mg/L). - Discussed the rare potential for progression to multiple myeloma/similar disorder; emphasized the rarity of this occurrence. - Referral to hematology/oncology for further evaluation and monitoring. 8. Spinal stenosis of lumbar region, unspecified whether neurogenic claudication present (M48.061) - No current need for re-referral to spine surgery, unless lumbar radicular symptoms exacerbate. - Patient advised to maintain caution with movements to prevent exacerbation. 9. Personal history of malignant neoplasm of breast (Z85.3) - Follow-up with oncologist Dr. Paulo Singh. - Discussed the neuropathy as a sequela of chemotherapy. 10. Postural orthostatic tachycardia syndrome (POTS) (G90.A) - Managed with lifestyle modifications. - Continues annual follow-ups with Dr. Jayna Goldman at the [facility]. 11. For mild zinc deficiency, would recommend appropriate dietary adjustments (prefer not to give zinc supplement given the risk for reflex low copper and neurologic sequelae of that). Details for dietary sources of zinc provided via Performable message sent today as well. -RTC in ~6 months (may be VV). To aid with communication, patients (and primary care physicians) can sign up for [employer]able (or [employer]), which allows online appointment scheduling, transmission of labs results and chart notes, and secure email communication. To establish either account, visit [email or web address]. The duration of this [facility] health appointment visit was 20 minutes (10:46-10:56 AM). At least 50% of this time was spent in counseling, explanation of diagnosis, planning of further management, and coordination of care. A further 20 mins were spent with documentation comprising this note. Susana Morales MD Staff, [facility] [place] Electronically signed October 09, 2024 11:58 AM Original referring provider/ Primary care physician: Makeda Osei MD [address] [id number] PROGRESS Observed: 09/20/2024 2:27 PM Status: COMPLETED Source: [facility] HNO ID: [id number] Author: ROSALBA REYNOSO MD Service: ? Author Type: Physician Type: Progress Notes Filed: 09/20/2024 14:54 Note Text: Breast Surgery Follow Up Visit Original surgery date: 10/2023 Procedure: Right lumpectomy with SLNB Oncologist: Dr. Singh Chemotherapy: NAC, now Keytruda Radiation: Complete 12/2023 Endocrine therapy: N/A Interval history: No new medical problems. No breast complaints. No masses, skin changes, nipple d/c. Last mammogram: 02/2024 ROS GENERAL: No weight loss, malaise or fevers. HEENT: Negative for frequent or significant headaches, Negative for changes in hearing, vision or dizziness, Negative for nose bleeds, Negative for difficulty swallowing or hoarsness RESPIRATORY: Negative for cough, hemoptysis, wheezing or shortness of breath CARDIOVASCULAR: Negative for chest pain, leg swelling or palpitations. GI: No nausea, vomiting, diarrhea, constipation, hematochezia, melena, or abdominal pain : No history of dysuria, hematuria, frequency or incontinence. SKIN: Negative for lesions, rash, and itching NEURO: No history of headaches, syncope, paralysis, seizures or tremors LYMPH: No LAD ENDO: No DM Exam Ambulatory, NAD Sclera anicteric Resp unlabored Mild R arm swelling - stable per pt The sensitive examination was discussed with the Patient or Patient's Authorized Operating Systems Specialist. As applicable, any other physician, advance practice provider, medical student, or other health professional student that will be observing or involved in the sensitive examination for educational or training purposes was discussed with the Patient or Authorized Operating Systems Specialist. The Patient or Authorized Operating Systems Specialist has agreed to proceed with the sensitive examination. (Sensitive examination includes inspection and/or palpation of the breasts, pelvis, prostate and anorectal regions) Right breast: Post op change - well healed incision, minor radiation change Left breast: Neg No supraclavicular or axillary lymphadenopathy Consutlants notes reviewed Most recent imaging reviewed IMPRESSION: Finding 1: Stable calcifications in the lateral left breast are probably benign. Follow-up with diagnostic mammogram is recommended in 6 months. Finding 2: The asymmetry in the upper outer quadrant of the right breast is benign. BI-RADS Category 3: Probably Benign RISK: Due to the reported patient's history, the patient's estimated lifetime risk of developing breast cancer cannot be assessed at this time. We encourage all patients to talk with their providers about their risk assessment, further recommendations for managing breast health, and appropriate supplemental screening options if the patient has dense breast tissue. Interpreting Radiologist: Maciel Cuevas M.D. Electronically signed on: 08/21/2024 Assessment 68 year old year old female with history of right breast CA doing well after lumpectomy. Plan: Cont to advise -Monthly self exams -Annual clinical exams -Annual mammography - due for L f/u 6 months -Oncologic follow up as planned -Discussed port - she prefers to keep for access, okay with flushing, advised happy to remove in the future when Dr. Tobar okay and if she desires Offered surgical follow up vs PRN Pt prefers to keep most of follow up close to home and will cont with Dr. Tobar Happy to see with any concerns. Rosalba Reynoso MD CNOV Observed: 09/20/2024 2:15 PM Status: COMPLETED Source: [facility] Office Visit (BRCRAV) JYOTI THAO ([id number]) 1955 F Date Time Provider Department 09/20/24 2:15 PM ROSALBA REYNOSO During your visit today, we recorded the following information about you: Weight Height 83.5 kg 1.676 m Rosalba Reynoso MD 09/20/2024 2:54 PM Signed Breast Surgery Follow Up Visit Original surgery date: 10/2023 Procedure: Right lumpectomy with SLNB Oncologist: Dr. Singh Chemotherapy: NAC, now Keytruda Radiation: Complete 12/2023 Endocrine therapy: N/A Interval history: No new medical problems. No breast complaints. No masses, skin changes, nipple d/c. Last mammogram: 02/2024 ROS GENERAL: No weight loss, malaise or fevers. HEENT: Negative for frequent or significant headaches, Negative for changes in hearing, vision or dizziness, Negative for nose bleeds, Negative for difficulty swallowing or hoarsness RESPIRATORY: Negative for cough, hemoptysis, wheezing or shortness of breath CARDIOVASCULAR: Negative for chest pain, leg swelling or palpitations. GI: No nausea, vomiting, diarrhea, constipation, hematochezia, melena, or abdominal pain : No history of dysuria, hematuria, frequency or incontinence. SKIN: Negative for lesions, rash, and itching NEURO: No history of headaches, syncope, paralysis, seizures or tremors LYMPH: No LAD ENDO: No DM Exam Ambulatory, NAD Sclera anicteric Resp unlabored Mild R arm swelling - stable per pt The sensitive examination was discussed with the Patient or Patient's Authorized Operating Systems Specialist. As applicable, any other physician, advance practice provider, medical student, or other health professional student that will be observing or involved in the sensitive examination for educational or training purposes was discussed with the Patient or Authorized Operating Systems Specialist. The Patient or Authorized Operating Systems Specialist has agreed to proceed with the sensitive examination. (Sensitive examination includes inspection and/or palpation of the breasts, pelvis, prostate and anorectal regions) Right breast: Post op change - well healed incision, minor radiation change Left breast: Neg No supraclavicular or axillary lymphadenopathy Consutlants notes reviewed Most recent imaging reviewed IMPRESSION: Finding 1: Stable calcifications in the lateral left breast are probably benign. Follow-up with diagnostic mammogram is recommended in 6 months. Finding 2: The asymmetry in the upper outer quadrant of the right breast is benign. BI-RADS Category 3: Probably Benign RISK: Due to the reported patient's history, the patient's estimated lifetime risk of developing breast cancer cannot be assessed at this time. We encourage all patients to talk with their providers about their risk assessment, further recommendations for managing breast health, and appropriate supplemental screening options if the patient has dense breast tissue. Interpreting Radiologist: Maciel Cuevas M.D. Electronically signed on: 08/21/2024 Assessment 68 year old year old female with history of right breast CA doing well after lumpectomy. Plan: Cont to advise -Monthly self exams -Annual clinical exams -Annual mammography - due for L f/u 6 months -Oncologic follow up as planned -Discussed port - she prefers to keep for access, okay with flushing, advised happy to remove in the future when Dr. Tobar okay and if she desires Offered surgical follow up vs PRN Pt prefers to keep most of follow up close to home and will cont with Dr. Tobar Happy to see with any concerns. MD Meahgan Chandra Erica E, MD 09/20/2024 2:50 PM Signed Jyoti Thao Thank you for coming to see us today! I am so glad to see you are doing well. As we discussed today, since you are doing so well from a surgical perspective, we will let Dr. Tobar take the lead in terms of your ongoing cancer care and breast screening/surveillance. Remember to schedule your follow up mammogram in March/April. Breast health recommendations continue to include routine breast self awareness, annual clinical breast exams with Medical Oncology and/or primary care team, annual mammography, minimal alcohol use and 150 min of aerobic exercise per week as your heart/lungs/joints allow. We will always be on your team, and are happy to see you any time with any surgical breast questions or concerns. Rosalba Reynoso MD Referring Provider: ROSALBA REYNOSO [[id number]] Allergies As of Date: 09/20/2024 Noted Allergy Reaction HYDROCODONE 02/10/2018 14 - Other: See Comments 8 - GI Upset Comments: Headaches OXYCODONE 04/18/2018 8 - GI Upset Comments: Can take 1/2 tab, but full tab makes her sick 12 HOUR COLD CAPSULE 11/05/2019 5 - Intolerance ADHESIVE 03/01/2022 14 - Other: See Comments ALLER-CHLOR DECONGESTANT 03/01/2022 16 - Unknown CHLORPHENIRAMINE-PSEUDOEPHED 02/21/2023 16 - Unknown IBD-HRVIOMIJY-PTLBEEMFKSIKG 09/08/2017 9 - Itching DECONGEST MULTI-ACTION 12/03/2019 [...] severe stimulation Other Reaction(s): Intolerance ANY Decongestant-Hyperactive REDKHRALXVTITTC-CR-CIFOLXEXYRE 04/02/2019 5 - Intolerance Comments: ANY Decongestant-Hyperactive RAGBLYO-LTB-YVW REDUCTASE INHIBIT*08/24/2021 14 - Other: See Comments Comments: Other Reaction(s): Unknown TIZANIDINE HCL 09/30/2023 9 - Itching 14 - Other: See Comments MORPHINE 07/05/2011 16 - Unknown 8 - GI Upset 11 - Vomiting 14 - Other: See Comments Comments: Migraine TRAMADOL 09/05/2013 9 - Itching 16 - Unknown Comments: Tooth sensitivity Only tolerates low dose Only tolerates low dose Date Reviewed: 09/20/2024 Reviewed by: Rosalba Reynoso MD - Fully Assessed Reason for Visit: Established Patient [175] Primary Visit Diagnosis:Abnormal mammogram [R92.8] Order(s):[facility] [[id number]] Order #: [id number] FUTURE Prescriptions as of 09/20/2024 - Alpha Lipoic Acid 600 mg cap Take 1 capsule by mouth once daily. - gabapentin (NEURONTIN) 300 mg capsule Take 1 capsule by mouth three times a day. - metFORMIN (GLUCOPHAGE) 500 mg tablet Take 1 tablet by mouth every 12 hours. - ondansetron (ZOFRAN) 8 mg tablet Take 1 tablet by mouth every 8 hours as needed for nausea/vomiting. - ibuprofen (MOTRIN) 600 mg tablet Take 400 mg by mouth at bedtime as needed. - meclizine (ANTIVERT) 25 mg tab TAKE 1-2 TABLETS BY MOUTH FOUR TIMES A DAY NEEDED FOR DIZZINESS - pantoprazole DR (PROTONIX) 40 mg tablet Take 40 mg by mouth once daily. - scopolamine (TRANSDERM-SCOP) patch 1.5 mg/72 hr (delivers 1 mg over 3 days) Apply 1 Patch as directed every 72 hours as needed. - simvastatin (ZOCOR) 10 mg tablet Take 10 mg by mouth daily at bedtime. - triamcinolone acetonide (KENALOG) 0.1 % cream Apply 1 application to affected area once daily. - eletriptan (RELPAX) 40 mg tablet TAKE 1 TABLET BY MOUTH AT ONSET OF MODERATE TO SEVERE MIGRAINE. MAY REPEAT DOSE IN 2 HOURS. MAX OF 2 DOSES IN 24 HOURS, 2 DAYS A WEEK - levothyroxine (SYNTHROID) 50 mcg tablet Take 50 mcg by mouth once daily. - blood sugar diagnostic (LOGIDOC-SolutionsTOUCH VERIO TEST STRIPS) test strip 1 Strip once daily. 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9] 04/29/2023 Blood glucose elevated [R73.9] 04/29/2023 PONV (postoperative nausea and vomiting) [R11.2*10/21/2023 Other instructions from your clinician: Jyoti Thao Thank you for coming to see us today! I am so glad to see you are doing well. As we discussed today, since you are doing so well from a surgical perspective, we will let Dr. Tobar take the lead in terms of your ongoing cancer care and breast screening/surveillance. Remember to schedule your follow up mammogram in March/April. Breast health recommendations continue to include routine breast self awareness, annual clinical breast exams with Medical Oncology and/or primary care team, annual mammography, minimal alcohol use and 150 min of aerobic exercise per week as your heart/lungs/joints allow. We will always be on your team, and are happy to see you any time with any surgical breast questions or concerns. Rosalba Reynoso MD Follow-up and Disposition History for Encounter Date Provider Department Center 09/20/2024 [id number] REYNOSO Encounter Status:Closed by ROSALBA REYNOSO on 09/20/24 [place] PANEL Collected: 09/11/2024 1:37 PM Sta tus: F Source: [facility] Comment: Specimen Type : BLOOD SPECIMEN Ordering Facility: [facility] Address: [address] [place] [address] TYPE CODE TESTS RESULT OUT OF RANGE REFERENCE UNITS LAB EBVGQ EBV VCA IGG, QUAL Positive Abnormal Negative LAB EBVMQ EBV VCA IGM, QUAL Negative Negative LAB EBVNAQ EBV NA AB, QUAL Negative Negative LAB EBVINT INTERPRETATION (EBVPNL) Past Infection. EBV panel interpretation is a general guide that is meant to capture most, but not all, of the possible clinical scenarios. Non-specific reactivities are not uncommon especially with equivocal results. Should the overall interpretation not be consistent with the clinical picture, please contact the medical coordinator pesticide use of the test for assistance. Performed By: #### EBVPNL ## ## [facility] CLIA [id number] [address] [place] [address] OF [place] CELIAC SCREEN Collected: 09/11/2024 1:37 PM Status: F Source: [facility] Comment: Specimen Type : BLOOD SPECIMEN Ordering Facility: [facility] Address: [address] [place] [address] TYPE CODE TESTS RESULT OUT OF RANGE REFERENCE UNITS LAB 36904-0(LOINC ) tTG IgA Ser-aCnc <2 <4 U/mL LAB TTGIGAQ TRANSGLUTAMINASE IGA ABS INTERPRETATION Negative Negative Result Comment: The followin g results were obtained with Stayful QUANTA Lite R h- tTG IgA PUMA.???R h-tTG IgA values obtained with different manufacturers' assay methods may not be used interchangeably. The magnitude of the reported IgA levels cannot be corelated to an endpoint???concentration. This is used as an aid in diagnosis of celiac disease. Clinical correlation is required. LAB INTCEL INTERPRETATION No serologica l evidence of celiac disease, however, if celiac disease is clinically suspected and patient is not on gluten-free diet, histological diagnosis may be considered. HLA testing may help with risk assessment. LAB 97734-4(LOINC ) Gliadin peptide IgA Ser-aCnc 10 <20 Units LAB GLIADAQ GLIAD DEAMIDATED IGA QUAL Negative Negative, Test not Indicated Result Comment: This is used as an aid in diagnosis of celiac disease. Clinical correlation is required. The following results were obtained with an Stayful QUANTA Lite Gliadin IgA PUMA Gliadin. Gliadin IgA values obtained with different manufacturers' assay methods may not be used interchangeably. The magnitude of the reported IgA levels cannot be correlated to an endpoint titer. Performed By: #### [id number] # ### [facility] CLIA [id number] [address] [place] [address] [place] VIT B12 SERPL-MCNC Collected: 09/11/2024 1:37 PM Sta tus: F Source: [facility] Comment: Specimen Type : BLOOD SPECIMEN Ordering Facility: [facility] Address: [address] [place] [address] TYPE CODE TESTS RESULT OUT OF RANGE REFERENCE UNITS LAB 2132-9(LOINC) Vit B12 SerPl-mCnc 363 200-7163 pg/mL Performed By: #### 2132-9 ## ## [facility] CLIA [id number] [address] [place] [address] [place] KAPPA/MARVIN,FREE,SER Collected: 09/12/19 1:37 PM Status: F Source: [facility] Comment: Specimen Type : BLOOD SPECIMEN Ordering Facility: [facility] Address: [address] [place] [address] TYPE CODE TESTS RESULT OUT OF RANGE REFERENCE UNITS LAB 75226-1(LOINC) [place] LC Free Ser-mCnc 20.8 High 3.3-19.4 mg/L Result Comment: Rarely, incr eased serum free light chains levels may not be detected or accurately quantified due to prozone phenomenon or in high viscosity samples using this immunoturbidimetric assay. Correlation with other laboratory results and clinical findings is recommended. The [place] Free Light Chain was performed using the Binding Site Optilite immunoturbidimetric method. Result obtained with different assay methods or kits cannot be used interchangeably. LAB 47495-5(LOINC) L[place] LC Free SerPl-mCnc 20.3 5.7-26.3 mg/L Result Comment: Rarely, incr eased serum free light chains levels may not be detected or accurately quantified due to prozone phenomenon or in high viscosity samples using this immunoturbidimetric assay. Correlation with other laboratory results and clinical findings is recommended. The [place] Free Light Chain was performed using the Binding Site Optilite immunoturbidimetric method. Result obtained with different assay methods or kits cannot be used interchangeably. LAB 99553-1([facility]) [place] LC/Lambda Ser 1.02 0.26-1.65 Performed By: #### KLFRS ### # [facility] CLIA [id number] [address] [place] [address] [place] COMP METAB 2000 PNL SERPL Collected: 1:37 PM Status: F Source: [facility] Order Comment: Specimen Type : BLOOD SPECIMEN Ordering Facility: [facility] Address: [address] [place] [address] TYPE CODE TESTS RESULT OUT OF RANGE REFERENCE UNITS LAB 2885-2(LOINC) Prot SerPl-mCnc 6.7 6.3-8.0 g/dL LAB 1751-7(LOINC) Albumin SerPl-mCnc 4.0 3.9-4.9 g/dL LAB 84065-3(LOINC) Calcium SerPl-mCnc 9.8 8.5-10.2 mg/dL LAB 1975-2(LOINC) Bilirub SerPl-mCnc 0.2 0.2-1.3 mg/dL LAB 6768-6(LOINC) ALP SerPl-cCnc 135 High 34-123 U/L LAB 1920-8(LOINC) AST SerPl-cCnc 18 13-35 U/L LAB 1742-6(LOINC) ALT SerPl-cCnc 17 7-38 U/L LAB 2345-7(LOINC) Glucose SerPl-mCnc 222 High 74-99 mg/dL Result Comment: The [place] Diabetes Association (ADA) provides guidance for cutoff values for fasting glucose and random glucose. The ADA defines fasting as no caloric intake for at least 8 hours. Fasting plasma glucose results between 100 to 125 mg/dL indicate increased risk for diabetes (prediabetes). Fasting plasma glucose results greater than or equal to 126 mg/dL meet the criteria for diagnosis of diabetes. In the absence of unequivocal hyperglycemia, results should be confirmed by repeat testing. In a patient with classic symptoms of hyperglycemia or hyperglycemic crisis, random plasma glucose results greater than or equal to 200 mg/dL meet the criteria for diagnosis of diabetes. Reference: Standards of Medical Care in Diabetes 2016, [place] [employer] Association. Diabetes Care. 2016.39(Suppl 1). LAB 3094-0(LOINC) BUN SerPl-mCnc 13 7-21 mg/ dL LAB 2160-0(LOINC) Creat SerPl-mCnc 0.69 0.58-0.96 mg/dL LAB 2951-2(LOINC) Sodium SerPl-sCnc 134 Low 136-144 mmol/L LAB 2823-3(LOINC) Potassium SerPl-sCnc 4.2 3.7-5.1 mmol/L LAB 2075-0(LOINC) Chloride SerPl-sCnc 99 98-107 mmol/L LAB 2028-9(LOINC) CO2 SerPl-sCnc 26 22-30 mmo l/L LAB 41482-8(LOINC) Anion Gap SerPl-sCnc 9 8-15 mmol/L LAB 13872-1(LOINC) Creatinine + eGFR Pnl SerPlBld 95 >=60 mL/min/1 .73m??? Result Comment: Estimated Gl omerular Filtration Rate (eGFR) is calculated using the 2020 CKD-EPI creatinine equation. This equation utilizes serum creatinine, sex, and age as parameters. The creatinine assay has traceable calibration to isotope dilution-mass spectrometry. Refer to KDIGO guidelines for clinical interpretation. In patients with unstable renal function, e.g. those with acute kidney injury, the eGFR may not accurately reflect actual GFR. Performed By: #### 06542-4 # ### [facility] CLIA [id number] [address] [place] [address] CBC W AUTO DIFF BLD Collected: 09/11/2024 1:[address] atus: F Source: [facility] Order Comment: Specimen Type : BLOOD SPECIMEN Ordering Facility: [facility] Address: [address] [place] [address] TYPE CODE TESTS RESULT OUT OF RANGE REFERENCE UNITS LAB 6690-2([facility]) WBC # Bld Auto 7.74 3.70-11.00 k/uL LAB 789-8([facility]) RBC # Bld Auto 4.01 3.90-5.20 m/ uL LAB 718-7([facility]) Hgb Bld-mCnc 11.8 11.5-15.5 g/dL LAB 4544-3([facility]) Hct VFr Bld Auto 35.4 Low 36.0-46.0 % LAB 787-2([facility]) MCV RBC Auto 88.3 80.0-100.0 fL LAB 785-6([facility]) MCH RBC Qn Auto 29.4 26.0-34.0 p g LAB 786-4([facility]) MCHC RBC Auto-mCnc 33.3 30.5-36.0 g/dL LAB 27859-9([facility]) RDW RBC-Rto 13.6 11.5-15.0 % LAB 777-3([facility]) Platelet # Bld Auto 311 150-400 k/uL LAB 90547-2([facility]) PMV Bld Auto 9.4 9.0-12.7 fL LAB 770-8([facility]) Neutrophils/leuk NFr Bld Auto 76.7 % LAB 751-8([facility]) Neutrophils # Bld Auto 5.94 1.45-7.50 k/uL LAB 736-9([facility]) Lymphocytes/leuk NFr Bld Auto 14.7 % LAB 731-0([facility]) Lymphocytes # Bld Auto 1.14 1.00-4.00 k/uL LAB 5905-5([facility]) Monocytes/leuk NFr Bld Auto 5.6 % LAB 742-7([facility]) Monocytes # Bld Auto 0.43 <0.87 k/uL LAB 713-8([facility]) Eosinophil/leuk NFr Bld Auto 2.3 % LAB 711-2([facility]) Eosinophil # Bld Auto 0.18 <0.46 k/uL LAB 706-2([facility]) Basophils/leuk NFr Bld Auto 0.4 % LAB 704-7(LOINC) Basophils # Bld Auto 0.03 <0.11 k/uL LAB 77188-8(LOINC) Imm Granulocytes/dominga k NFr Bld Auto 0.3 % LAB 99840-7(LOINC) Imm Granulocytes # Bld Auto <0.03 <0.10 k/uL LAB 68880-0(LOINC) nRBC/100 WBC Bld-Rto 0.0 /100 WBC LAB 771-6(LOINC) nRBC # Bld Auto <0.01 <0.01 k/u L LAB 57954-4(LOINC) Differential method Bld Auto Performed By: #### 72925-8 # ### [facility] CLIA [id number] [address] [place] [address] CRP SERPL-MCNC Collected: 09/11/2024 1:37 PM Status: F Source: [facility] Order Comment: Specimen Type : BLOOD SPECIMEN Ordering Facility: [facility] Address: [address] [place] [address] TYPE CODE TESTS RESULT OUT OF RANGE REFERENCE UNITS LAB 1987-5([facility]) CRP SerPl-mCnc 0.8 <0.9 mg/dL Performed By: #### 6875-9, 1 988-5, 3016-3, 2143-6 #### [facility] CLIA [id number] [address] [place] [address] OF [facility] CANCER AG15-3 SERPL-ACNC Collected: 1:37 PM Status: F Source: [facility] Comment: Specimen Type : BLOOD SPECIMEN Ordering Facility: [facility] Address: [address] [place] [address] TYPE CODE TESTS RESULT OUT OF RANGE REFERENCE UNITS LAB 6875-9([facility] Cancer Ag15-3 SerPl-aCnc 28.4 High <26.0 U/mL Result Comment: The CA 15-3 test methodology used is the Electrochemiluminescence Immunoassay by [employer]. Results obtained with different methods or kits cannot be used interchangeably. [facility] will discontinue CA 27.29 testing effective 10/09/2024, with CA 15-3 as its replacement. In preparation for the discontinuation, CA 15-3 testing in parallel was conducted with CA 27.29 to establish a new baseline. Performed By: #### 6875-9, 1 988-5, 3016-3, 2142-6 #### [facility] CLIA [id number] [address] [place] [address] [place] TSH SERPL-ACNC Collected: 1:37 PM Status: F Source: [facility] Order Comment: Specimen Type : BLOOD SPECIMEN Ordering Facility: [facility] Address: [address] [place] [address] TYPE CODE TESTS RESULT OUT OF RANGE REFERENCE UNITS LAB 6-3(LOINC) TSH SerPl-aCnc 1.540 0.270-4.200 mIU/L Performed By: #### 6875-9, 1 988-5, 3015-3, 2142-10 #### [facility] CLIA [id number] [address] [place], [place] [address] [place] CORTIS SERPL-MCNC Collected: 09/11/2024 1:37 PM Stat us: F Source: [facility] Order Comment: Specimen Type : BLOOD SPECIMEN Ordering Facility: [facility] Address: [address] [place] [address] TYPE CODE TESTS RESULT OUT OF RANGE REFERENCE UNITS LAB 3-6(LOINC) Cortis SerPl-mCnc 7.6 4.8-19.5 ug/dL Result Comment: Provided ref erence range is from 6-10 AM sample collection time. Cortisol Reference Range: 6-10 AM = 4.8-19.5 ug/dL, 4-8 PM = 2.5-11.9 ug/dL Performed By: #### 6875-9, 1 988-5, 3015-3, 6 #### [facility] CLIA [id number] [address] [place] [address] [place] IGA SERPL-MCNC Collected: 09/11/2024 1:37 PM Status: F Source: [facility] Comment: Specimen Type : BLOOD SPECIMEN Ordering Facility: [facility] Address: [address] [place] [address] TYPE CODE TESTS RESULT OUT OF RANGE REFERENCE UNITS LAB 2458-8(LOINC) IgA SerPl-mCnc 227 70-400 mg/dL Performed By: #### 2458-8 ## ## [facility] CLIA [id number] [address] [place] [address] [place] CA 27.29 Collected: 1:37 PM Status: F Source: [facility] Comment: Specimen Type : BLOOD SPECIMEN Ordering Facility: [facility] Address: [address] [place] [address] TYPE CODE TESTS RESULT OUT OF RANGE REFERENCE UNITS LAB 24208-0(LOINC) Cancer Ag27-29 SerPl-aCnc 32.3 <38.6 U/mL Result Comment: The CA27.29 test was performed using the Siemens Side.Craur XP chemiluminometric immunoassay method. Results obtained with different assay methods or kits cannot be used interchangeably. [facility] will discontinue CA 27.29 testing effective 10/09/2024, with CA 15-3 as its replacement. In preparation for the discontinuation, CA 15-3 testing in parallel was conducted with CA 27.29 to establish a new baseline. Performed By: #### [id number] # ### [facility] CLIA [id number] [address] [place] [address] [place] METHYLMALONATE SERPL-SCNC Collected: 09/11/2024 1:37 PM Status: F Source: [facility] Comment: Specimen Type : BLOOD SPECIMEN Ordering Facility: [facility] Address: [address] [place] [address] TYPE CODE TESTS RESULT OUT OF RANGE REFERENCE UNITS LAB 05264-0(LOINC ) Methylmalonate SerPl-sCnc 0.14 <=0.40 umol/L Result Comment: This test wa s developed, and its performance characteristics determined by the [facility] Department of Pathology and Laboratory Medicine. It has not been cleared or approved by the FDA. The [facility] Department of Pathology and Laboratory Medicine is regulated under CLIA as qualified to perform high-complexity testing. This test is used for clinical purposes. It should not be regarded as investigational or for research. Performed By: #### 38015-9 # ### [facility] CLIA [id number] [address] [place] [address] COPPER BLOOD Collected: 5 1:37 PM Status: F Source: [facility] Comment: Specimen Type : BLOOD SPECIMEN Ordering Facility: [facility] Address: [address] [place] [address] TYPE CODE TESTS RESULT OUT OF RANGE REFERENCE UNITS LAB 5631-7(LOINC) Copper SerPl-mCnc 128 80-155 ug/dL Result Comment: This test wa s developed, and its performance characteristics determined by the [facility] Department of Pathology and Laboratory Medicine. It has not been cleared or approved by the FDA. The [facility] of Pathology and Laboratory Medicine is regulated under CLIA as qualified to perform high-complexity testing. This test is used for clinical purposes. It should not be regarded as investigational or for research. Performed By: #### 5763-8, C OPPER #### [facility] CLIA [id number] [address] [place] [address] ZINC SERPL-MCNC Collected: 5 1:37 PM Status: F Source: [facility] Comment: Specimen Type : BLOOD SPECIMEN Ordering Facility: [facility] Address: [address] [place] [address] TYPE CODE TESTS RESULT OUT OF RANGE REFERENCE UNITS LAB 5763-8(LOINC) Zinc SerPl-mCnc 57 Low 60-120 ug/dL Result Comment: This test wa s developed, and its performance characteristics determined by the [facility] Department of Pathology and Laboratory Medicine. It has not been cleared or approved by the FDA. The [facility] Department of Pathology and Laboratory Medicine is regulated under CLIA as qualified to perform high-complexity testing. This test is used for clinical purposes. It should not be regarded as investigational or for research. Performed By: #### 5763-8, C OPPER #### [facility] CLIA [id number] [address] [place] [address] [place] CHROMATIN AB SERPL-ACNC Collected: 09/11/2024 1:37 PM Status: F Source: [facility] Comment: Specimen Type : BLOOD SPECIMEN Ordering Facility: [facility] Address: [address] [place] [address] TYPE CODE TESTS RESULT OUT OF RANGE REFERENCE UNITS LAB CHRABQL CHROMATIN AB QUAL Negative Negative LAB 78661-3([facility]) Chromatin Ab SerPl-aCnc <0.2 <1.0 AI Result Comment: Test Methodo logy: Multiplex flow immunoassay. Performed By: #### 04393-4, 43950-2, 51112-2, 17293-9, 39747-9, 85242-6, 76491- 4, 28023-7 #### [facility] CLIA [id number] [address] [place] [address] [place] PREETI CORRECTIONAL PROGRAM OFFICER AB SER-ACNC Collected: 09/11/2024 1:[address] atus: F Source: [facility] Comment: Specimen Type : BLOOD SPECIMEN Ordering Facility: [facility] Address: [address] [place] [address] TYPE CODE TESTS RESULT OUT OF RANGE REFERENCE UNITS LAB RIRNPQL RIBOSOMAL CORRECTIONAL PROGRAM OFFICER QUAL Negative Negative Result Comment: Anti-Ribosom al RNA (Ribosomal P) antibody is used as an aid in diagnosis of systemic autoimmune diseases especially systemic lupus erythematosus and mixed connective tissue disease. Cross-reactivity with Anti-evangelista antibody is not uncommon. Clinical correlation is required. Test Methodology: Multiplex flow immunoassay. LAB 79123-6(LOINC) PREETI CORRECTIONAL PROGRAM OFFICER Ab Ser-aCnc <0.2 <1.0 AI Performed By: #### 53183-0, 36787-7, 39482-1, 70308-4, 01246-6, 67188-0, 24718- 4, 67284-7 #### [facility] CLIA [id number] [address] [place] [address] [place] PREETI SS-B AB SER-ACNC Collected: 04/22/2 025 1:37 PM Status: F Source: [facility] Comment: Specimen Type : BLOOD SPECIMEN Ordering Facility: [facility] Address: [address] [place] [address] TYPE CODE TESTS RESULT OUT OF RANGE REFERENCE UNITS LAB 47873-4(LOINC) PREETI SS-B Ab Ser-aCnc <0.2 <1.0 AI Result Comment: Anti-SSB (an ti-La) antibody is used as an aid in diagnosis of a variety of systemic autoimmune diseases, especially for Sjogren's syndrome and systemic lupus erythematosus. Clinical correlation is required. Test Methodology: Multiplex flow immunoassay. LAB SSBABQL SSB ANTIBODY QUAL Negative Negative Performed By: #### 95101-4, 28979-5, 75319-2, 77443-2, 45473-0, 16985-4, 54717- 4, 70320-6 #### [facility] CLIA [id number] [address] [place] [address] [place] CENTROMERE AB SER QL IF Collected: 09/11/2024 1:37 PM Status: F Source: [facility] Comment: Specimen Type : BLOOD SPECIMEN Ordering Facility: [facility] Address: [address] [place] [address] TYPE CODE TESTS RESULT OUT OF RANGE REFERENCE UNITS LAB CENTABQL CENTROMERE AB QUAL Negative Negative LAB 8068-9(LOINC) Centromere Ab Ser-aCnc <0.2 <1.0 AI Result Comment: Anti-centrom ere antibody is used as in aid in diagnosis of systemic sclerosis. Clinical correlation is required. Test Methodology: Multiplex flow immunoassay. Performed By: #### 54949-7, 70182-1, 00769-6, 05280-5, 58978-9, 50727-1, 67738- 4, 10903-4 #### [facility] CLIA [id number] [address] [place] [address] [place] PREETI SM IGG SER-ACNC Collected: 09/12/19 1:37 PM Status: F Source: [facility] Comment: Specimen Type : BLOOD SPECIMEN Ordering Facility: [facility] Address: [address] [place] [address] TYPE CODE TESTS RESULT OUT OF RANGE REFERENCE UNITS LAB SMIB SM ANTIBODY QUAL Negative Negative Result Comment: Anti-Sm (Smi th) antibody is used as an aid in diagnosis of systemic lupus erythematosus and its presence is associated with renal disease. A negative result cannot rule out systemic lupus erythematosus. Clinical correlation is required. Test Methodology: Multiplex flow immunoassay. LAB 25879-7(LOINC) PREETI SM IgG Ser-aCnc <0.2 <1.0 AI Performed By: #### 10991-7, 06574-0, 29981-0, 09226-4, 44946-0, 13761-3, 17926- 4, 32004-0 #### [facility] CLIA [id number] [address] [place] [address] PREETI SS-A AB SER-ACNC Collected: 09/11/2024 1:37 PM S tatus: F Source: [facility] Order Comment: Specimen Type : BLOOD SPECIMEN Ordering Facility: [facility] Address: [address] [place] [address] TYPE CODE TESTS RESULT OUT OF RANGE REFERENCE UNITS LAB SSAABQL SSA ANTIBODY QUAL Negative Negative LAB 84967-1(LOINC) PREEIT SS-A Ab Ser-aCnc <0.2 <1.0 AI Result Comment: Test Methodo logy: Multiplex flow immunoassay. Performed By: #### 74193-0, 22044-1, 11449-1, 08214-8, 29886-6, 80237-3, 44534- 4, 94534-8 #### [facility] CLIA [id number] [address] [place] [address] OF [facility] PREETI SCL70 IGG SER IA-ACNC Collected: 09/11/2024 1:37 PM Status: F Source: [facility] Order Comment: Specimen Type : BLOOD SPECIMEN Ordering Facility: [facility] Address: [address] [place] [address] TYPE CODE TESTS RESULT OUT OF RANGE REFERENCE UNITS LAB SCLABQL SCLERODERMA AB QUAL Negative Negative LAB SCLIB SCLERODERMA IGG AB <0.2 <1.0 AI Result Comment: Scl-70/Scler oderma antibody test is used as an aid in diagnosis of systemic sclerosis especially the diffuse cutaneous form. A negative result cannot rule out systemic sclerosis. The final interpretation should consider clinical picture and other test results such as anti-centromere antibody. Test Methodology: Multiplex flow immunoassay. Performed By: #### 37177-6, 46335-7, 20299-9, 64151-3, 16113-6, 92912-0, 67795- 4, 45698-7 #### [facility] CLIA [id number] [address] [place] [address] [place] PREETI JO1 AB SER-ACNC Collected: 09/12/19 1:37 PM Status: F Source: [facility] Order Comment: Specimen Type : BLOOD SPECIMEN Ordering Facility: [facility] Address: [address] [place] [address] TYPE CODE TESTS RESULT OUT OF RANGE REFERENCE UNITS LAB IU8XZGA MADELIN 1 ANTIBODY QUAL Negative Negative Result Comment: Anti-MADELIN-1 an tibody is used as an aid in diagnosis of polymyositis and dermatomyositis especially with pulmonary involvement. A negative result cannot rule out polymyositis or dermatomyositis. Clinical correlation is required. Test Methodology: Multiplex flow immunoassay. LAB 17773-5(LOINC) PREETI Jo1 Ab Ser-aCnc <0.2 <1.0 AI Performed By: #### 98811-6, 52841-2, 38514-6, 87966-1, 23090-3, 31959-9, 66260- 4, 26254-2 #### [facility] CLIA [id number] [address] [place], [place] [address] [place] PREETI CORRECTIONAL PROGRAM OFFICER AB SER-ACNC Collected: 09/11/2024 1:[address] atus: F Source: [facility] Order Comment: Specimen Type : BLOOD SPECIMEN Ordering Facility: [facility] Address: [address] [place] [address] TYPE CODE TESTS RESULT OUT OF RANGE REFERENCE UNITS LAB RNAABQL ANTI-CORRECTIONAL PROGRAM OFFICER QUAL Negative Negative LAB 30234-9(LOINC) PREETI CORRECTIONAL PROGRAM OFFICER Ab Ser-aCnc 0.2 <1.0 AI Performed By: #### 55722-2, 61793-9, 42147-2, 93081-5, 78414-7, 00301-1, 49449- 4, 63982-8 #### [facility] CLIA [id number] [address] [place], [place] [address] [place] ESR BLD QN WESTRGRN Collected: 09/11/2024 1:[address] atus: F Source: [facility] Comment: Specimen Type : BLOOD SPECIMEN Ordering Facility: [facility] Address: [address] [place] [facility] [address] TYPE CODE TESTS RESULT OUT OF RANGE REFERENCE UNITS LAB 4537-7(LOINC) ESR Bld Qn Westrgrn 37 High 0-20 mm/hr Performed By: #### 4537-7 ## ## [facility] CLIA [id number] [address] [place] [address] [place] IMMUNOFIXATION SCREEN, SERUM Collected: 09/11/2024 1: 37 PM Status: F Source: [facility] Comment: Specimen Type : BLOOD SPECIMEN Ordering Facility: [facility] Address: [address] [place] [address] TYPE CODE TESTS RESULT OUT OF RANGE REFERENCE UNITS LAB MPAR MPA RESULT M protein is present. Abnormal No M protein is identified. LAB INTP INTERPRETATION (MPA) Atypical restricted bands are present in the IgG and lambda regions. Consistent with IgG lambda monoclonal gammopathy. LAB MPASTF STAFF REVIEW (MPA) Reviewed by Saundra Gonsalez MD Performed By: #### IFESC ### # [facility] CLIA [id number] [address] [place], [place] [address] [place] DEPRECATED HGB A1C BLD Collected: 09/11 1:37 PM Status: F Source: [facility] Comment: Specimen Type : BLOOD SPECIMEN Ordering Facility: [facility] Address: [address] [place] [address] TYPE CODE TESTS RESULT OUT OF RANGE REFERENCE UNITS LAB 4548-4(LOINC) HbA1c MFr Bld 8.1 High 4.3-5.6 % Result Comment: [place] [employer] guidelines indicate that patients with HgbA1c in the range 5.7-6.4% are at increased risk for development of diabetes, and intervention by lifestyle modification may be beneficial. HgbA1c greater or equal to 6.5% is considered diagnostic of diabetes. LAB 16979-8(LOINC) Est. average glucose Bld gHb Est-mCnc 186 mg/dL Result Comment: eAG: (Estima holley average glucose) is a calculated value from HgbA1c and is sales representative womens health of the average blood glucose level in the last 2-3 month period. Performed By: #### 67090-5 # ### [facility] CLIA [id number] [address] [place] [address] OF [facility] VITAMIN B6/PYRIDOXIN Collected: 1:37 PM Status: F Source: [facility] Comment: Specimen Type : BLOOD SPECIMEN Ordering Facility: [facility] Address: [address] [place] [address] TYPE CODE TESTS RESULT OUT OF RANGE REFERENCE UNITS LAB VITB6 VITAMIN B6 35.1 20.0-125.0 nmol/L Result Comment: INTERPRETIVE INFORMATION: Vitamin B6 (Pyridoxal 5-Phosphate) Pyridoxal 5'-phosphate measured in a specimen collected following an 8-hour or overnight fast accurately indicates vitamin B6 nutritional status. Non-fasting specimen concentration reflects recent vitamin intake. This test was developed and its performance characteristics determined by [facility]. It has not been cleared or approved by the [place] Food and Drug Administration. This test was performed in a CLIA certified laboratory and is intended for clinical purposes. Performed By: [facility] [address] [place] [address] Lumber Tailer: Arnaud Bustamante MD, PhD CLIA Number: [id number] Performed By: #### VITB6 ### # [facility] CLIA [id number] [address] [place] [address] A-TOCOPHEROL VIT E SERPL-MCNC Collected : 09/11/2024 1:37 PM Status: F Source: [facility] Comment: Specimen Type : BLOOD SPECIMEN Ordering Facility: [facility] Address: [address] [place] [address] TYPE CODE TESTS RESULT OUT OF RANGE REFERENCE UNITS LAB 1823-4(LOINC) A-Tocopherol Vit E SerPl-mCnc 10.3 6.0-23.0 mg/L LAB 80822-5(LOINC) Beta+Gamma Tocopherol SerPl-mCnc 1.8 0.3-3.2 mg/L Result Comment: This test wa s developed, and its performance characteristics determined by the [facility] Department of Pathology and Laboratory Medicine. It has not been cleared or approved by the FDA. The [facility] of Pathology and Laboratory Medicine is regulated under CLIA as qualified to perform high-complexity testing. This test is used for clinical purposes. It should not be regarded as investigational or for research. Performed By: #### 1823-4 ## ## [facility] CLIA [id number] [address] [place] [address] [place] VITAMIN B1 (THIAMINE), WHOLE BLOOD Souleymane ected: 09/11/2024 1:37 PM Status: F Source: [facility] Order Comment: Specimen Type : BLOOD SPECIMEN Ordering Facility: [facility] Address: [address] [place] [address] TYPE CODE TESTS RESULT OUT OF RANGE REFERENCE UNITS LAB 19326-4(INC) Vit B1 Bld-sCnc 230.1 High 84.3-213.3 nmol/L Result Comment: This assay m easures the concentration of thiamine diphosphate (TDP), the primary active form of vitamin B1. Approximately 90 percent of vitamin B1 present in whole blood is TDP. Thiamine and thiamine monophosphate, which comprise the remaining 10 percent, are not measured. This test was developed, and its performance characteristics determined by the [facility] Department of Pathology and Laboratory Medicine. It has not been cleared or approved by the FDA. The [facility] Department of Pathology and Laboratory Medicine is regulated under CLIA as qualified to perform high- complexity testing. This test is used for clinical purposes. It should not be regarded as investigational or for research. Performed By: #### B1WB #### [facility] CLIA [id number] [address] [place] [address] [place] CNOVSP Observed: 09/11/2024 1:20 PM Status: COMPLETED Source: [facility] Office ([place]) JYOTI THAO ([id number]) 1955 F Date Time Provider Department 09/11/24 1:20 PM PAULO SINGH During your visit today, we recorded the following information about you: Temperature Pulse Respiration Blood pressure 97.8 degrees 89/minute 18/minute 122/77 Weight Height 83.5 kg 1.676 m Paulo Singh MD 09/11/2024 7:36 PM Signed NAME: Jyoti Thao CLINIC NO.: [id number] DATE OF SERVICE: September 11, 2024 (Lenny) Some elements in this clinic note that are critical to medical decision making have been carefully reviewed and included from a prior clinic note dated: May 31, 2024 (Lenny) Referring Provider: Alfa Joaquin Additional Clinicians involved in Jyoti Thao's care: Abisai Chandra DIAGNOSIS: TNBC - right breast ASSESSMENT: 68 year old woman with 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 Following additional imaging, including MRI breast bilateral, CT CAP, echocardiogram she will be ready for initiation of neoadjuvant chemotherapy with immunotherapy. Preceding this the patient desired to have an opinion with one of our [facility] breast surgeons and may need lymph node sampling prior to start of therapy. Given TNBCa stage IIA high risk disease, will proceed with neoadjuvant systemic therapy. Neoadjuvant treatment with Keynote 512 - MRI, 4 cycles keytruda Carboplatin + taxol - MRI - 4 cycles keytruda AC MRI then surgery. Her genetic testing was negative. Appears to have good response with 2 cycles of therapy on examination of right breast. Completed Keytruda in February 2024 and has had right lumpectomy mid-October 2023. Unfortunately, she has an abnormality that will need biopsied in the right breast that is a possible recurrence - which turned out benign. PLAN: Triage to call with tumor marker results RTC in 12 weeks Labs with port same day Plan for exam same day - HPI: CASE HISTORY: Reverse Chronological Order 08/21/2024 - Bilateral Diagnostic Mammogram: Finding 1: Stable calcifications in the lateral left breast are probably benign. Follow-up with diagnostic mammogram is recommended in 6 months. Finding 2: The asymmetry in the upper outer quadrant of the right breast is benign. BI-RADS Category 3: Probably Benign 05/04/2024 - US Thyroid/Parathyroid: Thyroid nodule(s) present is/are clinically insignificant. No surveillance is advised. 03/14/2024 - Breast, right, at 11:00, 4 cm from the nipple, mass, Q clip, ultrasound-guided core biopsy: Benign breast parenchyma with markedly dense stromal fibrosis. Rare microcalcifications are present within benign breast. 02/21/2024 - Diagnostic Mammogram AND Ultrasound: Mammogram: Finding 1: Irregular mass in the right breast is suspicious of malignancy. An ultrasound guided biopsy is recommended. Findings were discussed with the patient at the time of examination. Finding 2: Calcifications in the left breast are probably benign. Follow-up in 6 months is recommended. Finding 3: Biopsy marker clips in both breasts are benign. BI-RADS Category 4: Suspicious Ultrasound: Finding 1: Ultrasound demonstrates an irregular mass measuring 1.0 x 0.8 x 0.9cm in the right breast at 11 o'clock located 4 cm from the nipple. Internal echotexture is hypoechoic. Color flow imaging demonstrates vascularity is not present. The ipsilateral axilla was surveyed, and no abnormal lymph nodes were visible. 12/20/2023-01/19/2024 - Radiation to right breast 11/02/2023 - Right breast lumpectomy: Dr. Meaghan Parkinson Right axillary sentinel lymph node, excision: - One lymph node, negative for carcinoma (0/1). B. Right breast, lumpectomy: - Residual invasive ductal carcinoma with treatment effect, see comment and synoptic report. - Prior biopsy site, biopsy clip, and Marianela shipping processor device. C, D, E, F, G, H. Right breast, multiple margins, excision: - The final inked margin is negative for carcinoma. ER-, CO-, HER2- 10/27/2023-03/08/2024 - 4 cycles single agent Keytruda 400mg q 6 weeks 10/26/2023 - Infrared activated electromagnetic reflector device placement for the mass in the right breast at 12 o'clock middle depth 5 cm from the nipple 10/12/2023 - MRI Breast: Continued interval treatment response to neoadjuvant systemic therapy of the known biopsy-proven malignancy in the 12:00 right breast, now measuring 8 mm (with previous serial measurements as above). No suspicious areas of enhancement in the left breast. No lymphadenopathy. Mild motion limitations. 09/26/2023 - US Extremity Nonvascular LT: 2 indeterminate hyperechogenic left axillary lesions measuring 0.7 and 0.6 cm. In light of the patient's invasive ductal carcinoma, metastatic disease to lymph nodes should be considered. 07/07/2023-09/15/2023 - 4 cycles A/C + Keytruda q 21 days 07/01/2023 - MRI Breast: BI-RADS 6 - Known Malignancy. Right Breast: 1.5 cm irregular enhancing mass in the right breast at 12:00 anterior depth corresponds with patient's known site of malignancy. This previously measured 2.2 cm in maximum dimension. 03/17/2023-06/10/2023 - 4 cycles days 1, 8, 15 q 21 days Carboplatin / Taxol / Keytruda 03/15/2023 - MRI Breast: 2.2 cm spiculated enhancing mass in the 12:00 anterior depth-middle depth right breast at site of biopsy-proven malignancy. No other definite suspicious areas of enhancement in either breast. No lymphadenopathy. 03/10/2023 - USG breast bx 2nd right breast lesion: - Negative for additional malignancy 03/09/2023 - CT CAP: Negative for metastatic disease. Hepatic steatosis. 01/20/2023 - Right breast mass biopsy: - Invasive ductal carcinoma grade 3 ER 0, CO 0 HER2 1+ by IHC negative. 01/20/2023 - Post-biopsy diagnostic mammography metallic marker placed in targeted location within the upper outer quadrant right breast. 01/17/2023 - Diagnostic Mammography: Right breast category 4 suspicious for malignancy US demonstrates bilobed hypoechoic mass with acoustic shadowing smaller component measuring 5.9 mm connected to a larger deeper 8.3 mm lesion with a connecting stalk measuring 2.3 mm. 12/2022 - Mid December felt a lump in her right breast 07/2022 - Normal mammogram Updated Visit, September 11, 2024: Jyoti Hdz returns for a follow up. Recent diagnostic mammogram showed stable benign calcifications in the left breast and a benign asymmetry in the right breast. She denies any changes to the breast, pain is unchanged. She has a follow up with Dr. Reynoso next week, will defer my exam today. She complains of fatigue today due to EBV. But could also be due to weight gain. 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 Updated Visit, May 31, 2024: Jyoti Hdz returns with her , Alex. She had a biopsy of the right breast in 02/2024 - results benign. Her annual ultrasound of the thyroid confirmed clinically insignificant nodules. She complains of decreased stamina and bilateral foot neuropathy - treats with gabapentin 300mg TID. Will continue to follow up q 12 weeks. Chaperoned Breast Exam noted below. Updated Visit, March 08, 2024: Jyoti Hdz returns for her final Keytruda infusion. She had a mammogram and ultrasound on 02/20, an irregular mass that is suspicious for malignancy was seen in the right breast. She has a biopsy scheduled for next week. She reports she is still fatigued due to radiation. She had a syncopal episode recently. Updated Visit, January 26, 2024: Jyoti Hdz returns today for Keytruda. She completed about 4 weeks of radiation to the right breast. She endorses expected skin changes, although says it is improving. She is also experiencing fatigue. She also mentions she is overdue for an annual thyroid ultrasound, at [facility], to monitor nodules - will order at next visit. Deferred breast exam as Dr. John had recently examined her. Updated Visit, November 18, 2023: Had her right breast surgery and did very well. Pathology with responsive tumor and LN negative. TNBC. Some neuropathy continues. Breast is hard and had some post-op cellulitis that has cleared. Updated Visit, October 27, 2023: Jyoti Hdz returns today with Alex. MRI breast shows continued response to treatment. She developed pustules w/ itching on her arms, chest, AND legs and tingling/burning in her lips. She wonders if this was an allergic reaction so has discontinued some of her medications. She is wearing a cervical collar due to a pinched nerve in her neck. She complains of severe pain and occasional dizziness. She is unable to have an MRI for her neck since she cannot lay on her chest due to her upcoming lumpectomy. Updated Visit, September 08, 2023: Severe cold and sore throat last week causing her to cancel US. Alex called me and I had recommended ER for severe teeth and throat pain. She ended up not going. Continues to have numerous complaints of body aches, anxiety etc. But no definitive illness. Symptoms have resolved, but she would like another week to finish her recovery. Chaperoned Breast Exam noted below. Updated Visit, August 18, 2023: Jyoti Thao returns for follow-up and continued treatment. Overall, she is tolerating treatment well. She has been experiencing some tooth sensitivity. She has been using a TENS unit for her foot neuropathy. She denies any fevers, chills, night sweats or signs/symptoms of infection. No bleeding or abnormal bruising. She wishes to proceed with treatment as planned. Updated Visit, July 28, 2023: Jyoti Thao returns for follow-up and continued treatment. Overall, she is tolerating treatment well. She denies cough, shortness of breath and other pulmonary complaints. She denies any skin rashes. 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 She complains of feeling tired with treatment. She denies fevers, chills, night sweats and signs/symptoms of infection. No bleeding or abnormal bruising. Today she expresses some concerns about having her teeth cleaned. Updated Visit, July 07, 2023: Jyoti Hdz returns today with Alex. She has had a cold for a couple weeks, is finally now getting over it. She notes she will start wearing a mask when she goes out. Recent MRI shows response to treatment. Her fingernails and toenails are turning black - side effect of chemo. Also reports neuropathy in her feet and fingertips. Proceeding with C5 today. Chaperoned Breast Exam noted below. Updated Visit, May 27, 2023: Jyoti Hdz returns with Alex for follow up and to begin C4 of her treatment. She reports that the hydration has been helping. I encouraged her not to hesitate to reach out if she feels she needs more fluids. We reviewed her labs, which show decreases in blood counts so she is more anemic today. Her chemistries look great. She has not done a self-breast exam since I last saw her, we will conduct another prior to starting Adriamycin. I also will order a breast MRI. She will need education for the new regimen. She reports the only thing bothering her right now is some mild neuropathy in her toes, and some random brief shooting pains in her legs and feet. Her BGs have been running on average in the 150s-160s, with some days in the 130s. We briefly discussed possible timeline for finishing out her treatment course and what she will decide for her surgery. Updated Visit, April 29, 2023: Jyoti Hdz returns today with Alex for follow up. She is having a [...] a lot of fluids. Has seen the operation research analyst. Even though she does not necessarily feel [...] we should hold treatment for a week. Chaperoned Breast Exam noted below. Updated Visit, April 08, 2023: Jyoti Hdz returns today for follow up accompanied by her Alex. She has lost the rest of her [...] her that I see early response already. Chaperoned Breast Exam noted below. Updated Visit, April 04, 2023: Jyoti Thao received cycle 1 day 1 carboplatin, Taxol [...] Updated Visit, March 17, 2023: Here with Alex. Is Tu Cruz's mother. Ready for neoadjuvant treatment given high risk disease. Reviewed MRI, biopsy of second spot was negative. Thoroughly reviewed patients treatment plan. Initial Visit, February 21, 2023: Jyoti Thao presents today Hematology and Oncology evaluation. She is a 67 year old female who has a history of POTS syndrome and is adopted who is [employer] genetic testing is negative. She gives a story of having a normal mammogram in July 2022 and subsequently felt a lump in mid December 2022. She underwent imaging in [facility] and then had a biopsy that [...] this interferes with her plans to buy [employer] in [place] [facility] and move there this year with her iTm. Despite high risk disease and the need for a protracted course of neoadjuvant chemotherapy according to keynote 512, I think she will be able to get to the [employer] multiple times. I reassured her that she appears to have curable disease and indeed she felt better. Although her work-up was initiated locally, she would like to transition her care to [facility] and I will make appropriate referrals. M grandmother Lucio's Mother stroke Birthfather?? Heart attack in 70s Chaperoned Breast Exam noted below. - REVIEW OF SYSTEMS Per HPI and otherwise negative by full review of organ systems. - ECOG PERFORMANCE STATUS: 0 PHYSICAL EXAMINATION: Vitals: BP 122/77 Pulse 89 Temp (Src) 97.8 (Temporal) Resp 18 Ht 5' 5.984 (1.68m) Wt 184 lb 1.4 oz (83.5kg) SpO2 97% BMI 29.73 kg/(m2). Body surface area is 1.97 meters squared. Exam limited to gross visualization where appropriate. Gen.: This is an age-appropriate patient in no acute distress. Head: Appears atraumatic with no visible lesions. Eyes: Pupils equally round and reactive to light, extraocular muscles are intact. Neck: Supple. Respiratory: Appears to be respiring comfortably. Neurologic: Nonfocal to gross visualization. Alert and oriented ?3. Psychiatric: No evidence of inappropriate depression but remains highly anxious. Skin: Visible areas of skin without lesions, wounds or petechiae. Erythematous blanching rash on her forearms and around the port on her chest, will monitor. Prior exams for reference: Chaperoned Breast Exam May 31, 2024 (Sara Clinton) : Right breast shows radiation changes and slight lymphedema, otherwise a normal exam, Left breast is normal to palpation. Socorro exam is negative bilaterally. Chaperoned Breast Exam September 08, 2023 (Tesha Evangelista) : Right breast is tender but no discreet masses, Left breast is mildly tender and normal. Socorro exam is negative bilaterally. Chaperoned Breast Exam July 07, 2023 (Sara Clinton) : Right breast is tender but no discreet masses, Left breast is mildly tender and normal. Socorro exam is negative bilaterally. Chaperoned Breast Exam April 29, 2023 (Sara Clinton) : Right breast shows continued improvement, now lesion measure 0.5 cm, Left breast was not examined. Chaperoned Breast Exam April 08, 2023 (Evan Lambert): Right breast mass at 12 o' clock just above the NAC definitely feels smaller (approx. 1.5 cm), Left breast is normal. Chaperoned Breast Exam February 21, 2023 (Evan Lambert): Fairly tender right breast with a 3 cm dense nodule just above the areola in the 11 o'clock position approximately 1 cm from the nipple. She has a secondary small nodule adjacent and more medial but otherwise breast is largely benign and actually socorro examination is negative. - ALLERGIES: ALLERGIES Allergen Reactions Hydrocodone Other: See Comments, GI Upset Headaches Oxycodone GI Upset Can take 1/2 tab, but full tab makes her sick 12 Hour Cold Capsule Intolerance Adhesive Other: See Comments Aller-Chlor Deconge* Unknown Chlorpheniramine-Ps* Unknown Iyo-Qosljqaon-Rwiqh* Itching Decongest Multi-Act* Other: See Comments Diazepam Other: See Comments sick-headache Diphenhydramine Intolerance Levofloxacin Intolerance Nalbuphine Rash Progesterone Other: See Comments, GI Upset Speeds up metabolism Weight gain and voice hoarse Promethazine Unknown Pseudoephedrine Other: See Comments Other Reaction(s): Hyperactive, severe stimulation Other Reaction(s): Intolerance ANY Decongestant-Hyperactive Pseudoephedrine-Dm-* Intolerance ANY Decongestant-Hyperactive Sxufuks-Qbq-Piv Red* Other: See Comments Other Reaction(s): Unknown Tizanidine Hcl Itching, Other: See Comments Morphine Unknown, GI Upset, Vomiting, Other: See Comments Migraine Tramadol Itching, Unknown Tooth sensitivity Only tolerates low dose Only tolerates low dose MEDICATIONS: metFORMIN (GLUCOPHAGE) 500 mg tablet Take 1 tablet by mouth every 12 hours. ondansetron (ZOFRAN) 8 mg tablet Take 1 tablet by mouth every 8 hours as needed for nausea/vomiting. ibuprofen (MOTRIN) 600 mg tablet Take 400 mg by mouth at bedtime as needed. meclizine (ANTIVERT) 25 mg tab TAKE 1-2 TABLETS BY MOUTH FOUR TIMES A DAY NEEDED FOR DIZZINESS pantoprazole DR (PROTONIX) 40 mg tablet Take 40 mg by mouth once daily. scopolamine (TRANSDERM-SCOP) patch 1.5 mg/72 hr (delivers 1 mg over 3 days) Apply 1 Patch as directed every 72 hours as needed. simvastatin (ZOCOR) 10 mg tablet Take 10 mg by mouth daily at bedtime. triamcinolone acetonide (KENALOG) 0.1 % cream Apply 1 application to affected area once daily. eletriptan (RELPAX) 40 mg tablet TAKE 1 TABLET BY MOUTH AT ONSET OF MODERATE TO SEVERE MIGRAINE. MAY REPEAT DOSE IN 2 HOURS. MAX OF 2 DOSES IN 24 HOURS, 2 DAYS A WEEK levothyroxine (SYNTHROID) 50 mcg tablet Take 50 mcg by mouth once daily. blood sugar diagnostic (ONETOUCH VERIO TEST STRIPS) test strip 1 Strip once daily. predniSONE (DELTASONE) 10 mg tablet Take 10 mg by mouth once daily. gabapentin (NEURONTIN) 300 mg capsule Take 1 capsule by mouth three times a day. dicyclomine (BENTYL) 20 mg tablet q 8 HR. hyoscyamine sublingual (LEVSIN SL) 0.125 mg - LABORATORY VALUES: WBC (k/uL) Date Value 09/11/2024 7.74 RBC (m/uL) Date Value 09/11/2024 4.01 Hemoglobin (g/dL) Date Value 09/11/2024 11.8 Hematocrit (%) Date Value 09/11/2024 35.4 (L) MCV (fL) Date Value 09/11/2024 88.3 MCH (pg) Date Value 09/11/2024 29.4 MCHC (g/dL) Date Value 09/11/2024 33.3 RDW-CV (%) Date Value 09/11/2024 13.6 Platelet Count (k/uL) Date Value 09/11/2024 311 MPV (fL) Date Value 09/11/2024 9.4 Glucose (mg/dL) Date Value 09/11/2024 222 (H) BUN (mg/dL) Date Value 09/11/2024 13 Creatinine (mg/dL) Date Value 09/11/2024 0.69 Sodium (mmol/L) Date Value 09/11/2024 134 (L) Potassium (mmol/L) Date Value 09/11/2024 4.2 Chloride (mmol/L) Date Value 09/11/2024 99 CO2 (mmol/L) Date Value 09/11/2024 26 Protein, Total (g/dL) Date Value 09/11/2024 6.7 Albumin (g/dL) Date Value 09/11/2024 4.0 Calcium, Total (mg/dL) Date Value 09/11/2024 9.8 Alkaline Phosphatase (U/L) Date Value 09/11/2024 135 (H) Bilirubin, Total (mg/dL) Date Value 09/11/2024 0.2 AST (U/L) Date Value 09/11/2024 18 ALT (U/L) Date Value 09/11/2024 17 Breast CA 15-3 (U/mL) Date Value 11/18/2023 30.4 03/17/2023 25.5 - DIAGNOSIS: (C50.411, Z17.0) Malignant neoplasm of upper-outer quadrant of right breast in female, estrogen receptor positive (HCC) (primary encounter diagnosis) Plan: CA 15-3 BLD, COMPREHENSIVE METABOLIC PANEL, COMPLETE BLOOD COUNT AND DIFFERENTIAL PAST MEDICAL HISTORY Diagnosis Date Anemia Arthritis Breast cancer (HCC) Diabetes (HCC) Diverticulitis of colon Salty Bolton virus infection Essential (primary) hypertension Fibrocystic breast GERD (gastroesophageal reflux disease) Hyperlipidemia Hypothyroidism IBS (irritable bowel syndrome) Malignant neoplasm of upper-outer quadrant of right breast in female, estrogen receptor positive (HCC) 02/21/2023 Migraines Nausea without vomiting 04/30/2021 PONV (postoperative nausea and vomiting) 10/21/2023 POTS (postural orthostatic tachycardia syndrome) Small bowel obstruction (HCC) Thyroid disease Thyroid nodule Vertigo Vitreous detachment of right eye PAST SURGICAL HISTORY Procedure Laterality Date ABDOMINAL SURGERY HX 2004 ADDITIONAL SPINAL FUSION 07/27/2004 APPENDECTOMY BX OF BREAST; INCISIONAL COLONOSCOPY HAND SURGERY HX HERNIA REPAIR HX 04/29/2021 Hiatal LASIK 2002 PAST SURGICAL HISTORY OF cervical fusion 2013, 2018 PAST SURGICAL HISTORY OF Right Foot PAST SURGICAL HISTORY OF Knee Arthroscopy w/ACL reconstruction x2 PAST SURGICAL HISTORY OF Lipoma resection PAST SURGICAL HISTORY OF Lumbar Discectomy PAST SURGICAL HISTORY OF Mass excision right axilla (benign) PAST SURGICAL HISTORY OF Small bowel resection SINUS SURGERY HX SMALL INTESTINE SURGERY HX TONSILLECTOMY HX UNLISTED STOMACH SURGERY Removal stomach polyps VAGINAL HYSTERECTOMY with appendectomy, Meckel's diverticulectomy Social History Tobacco Use Smoking status: Former Current packs/day: 0.00 Types: Cigarettes Quit date: 2016 Years since quittin.3 Passive exposure: Past Smokeless tobacco: Never Tobacco comments: quit smoking in 2014, on and off, 1/3 ppd at most Vaping Use Vaping status: Never Used Substance Use Topics Alcohol use: Not Currently Comment: rarely Drug use: Never FAMILY HISTORY Adopted: Yes Problem Relation Age of Onset Stroke Mother other (addisons) Maternal Grandmother I spent a total of 30 minutes on the date of service which included preparing to see the patient, [id number] patient care, completing clinical documentation, performing a medically appropriate examination, counseling and educating the patient/family/caregiver, ordering medications, tests, or procedures, independently interpreting results (not separately reported), communicating results to the patient/family/caregiver, and care coordination (not separately reported). Paulo Singh MD, CPE Hematology and Oncology Services Provided at: [place], [place] Scribe Attestation: This note was scribed by Renu Sidhu on September 11, 2024 under the direction and supervision of Dr. Paulo Singh. I attest that all of the information documented is correct to the best of my knowledge. Provider Attestation: I, Paulo Singh MD, attest that all information documented by the above scribe is correct, and was supervised by me and under my direction. CC: Dr. Zeke Joaquin [address] [facility] [address] [id number] [address] Makeda Osei [address] [facility] [address] [facility] [id number] 09/11/2024 2:13 PM Signed Triage to call with tumor marker results RTC in 12 weeks Labs with port same day Plan for exam same day Referring Provider: SELF [[id number]] Allergies As of Date: 09/11/2024 Noted Allergy Reaction HYDROCODONE 02/10/2018 14 - Other: See Comments 8 - GI Upset Comments: Headaches OXYCODONE 04/18/2018 8 - GI Upset Comments: Can take 1/2 tab, but full tab makes her sick 12 HOUR COLD CAPSULE 11/05/2019 5 - Intolerance ADHESIVE 03/01/2022 14 - Other: See Comments ALLER-CHLOR DECONGESTANT 03/01/2022 16 - Unknown CHLORPHENIRAMINE-PSEUDOEPHED 02/21/2023 16 - Unknown [id number] 09/08/2017 9 - Itching DECONGEST MULTI-ACTION 12/03/2019 [...] severe stimulation Other Reaction(s): Intolerance ANY Decongestant-Hyperactive [id number] 04/02/2019 5 - Intolerance Comments: ANY Decongestant-Hyperactive [id number] REDUCTASE INHIBIT*08/24/2021 14 - Other: See Comments Comments: Other Reaction(s): Unknown TIZANIDINE HCL 09/30/2023 9 - Itching 14 - Other: See Comments MORPHINE 07/05/2011 16 - Unknown 8 - GI Upset 11 - Vomiting 14 - Other: See Comments Comments: Migraine TRAMADOL 09/05/2013 9 - Itching 16 - Unknown Comments: Tooth sensitivity Only tolerates low dose Only tolerates low dose Date Reviewed: 09/11/2024 Reviewed by: Yodit Collier MA - Fully Assessed Reason for Visit: Breast Cancer [519] Cmt: 12 week follow up Primary Visit Diagnosis:Malignant neoplasm of upper-outer quadrant of right breast in female, estrogen receptor positive (HCC) [C50.411, Z17.0] Order(s):CA 15-3 BLD [CAHE014] Order #: [id number] STANDING COMPREHENSIVE METABOLIC PANEL [SQCMP] Order #: [id number] STANDING COMPLETE BLOOD COUNT AND DIFFERENTIAL [SQCBCDIF] Order #: [id number] STANDING Level of Service: OFFICE/OUTPATIENT ESTABLISHED MOD MDM 30 MIN [87782] Additional E/M codes: VISIT CPLX INHERENT EANDM ASSOC WITH MED * Disposition: Return in about 12 weeks (around 12/04/2024). Follow-up and Disposition History for Encounter Date Provider Department Center 09/11/2024 [id number] [place]ING[place] Prescriptions as of 09/11/2024 - gabapentin (NEURONTIN) 300 mg capsule Take 1 capsule by mouth three times a day. - metFORMIN (GLUCOPHAGE) 500 mg tablet Take 1 tablet by mouth every 12 hours. - ondansetron (ZOFRAN) 8 mg tablet Take 1 tablet by mouth every 8 hours as needed for nausea/vomiting. - ibuprofen (MOTRIN) 600 mg tablet Take 400 mg by mouth at bedtime as needed. - meclizine (ANTIVERT) 25 mg tab TAKE 1-2 TABLETS BY MOUTH FOUR TIMES A DAY NEEDED FOR DIZZINESS - pantoprazole DR (PROTONIX) 40 mg tablet Take 40 mg by mouth once daily. - scopolamine (TRANSDERM-SCOP) patch 1.5 mg/72 hr (delivers 1 mg over 3 days) Apply 1 Patch as directed every 72 hours as needed. - simvastatin (ZOCOR) 10 mg tablet Take 10 mg by mouth daily at bedtime. - triamcinolone acetonide (KENALOG) 0.1 % cream Apply 1 application to affected area once daily. - eletriptan (RELPAX) 40 mg tablet TAKE 1 TABLET BY MOUTH AT ONSET OF MODERATE TO SEVERE MIGRAINE. MAY REPEAT DOSE IN 2 HOURS. MAX OF 2 DOSES IN 24 HOURS, 2 DAYS A WEEK - levothyroxine (SYNTHROID) 50 mcg tablet Take 50 mcg by mouth once daily. - blood sugar diagnostic (LOGIDOC-SolutionsTOUCH VERIO TEST STRIPS) test strip 1 Strip once daily. 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9] 04/29/2023 Blood glucose elevated [R73.9] 04/29/2023 PONV (postoperative nausea and vomiting) [R11.2*10/21/2023 Other instructions from your clinician: Triage to call with tumor marker results RTC in 12 weeks Labs with port same day Plan for exam same day Encounter Status:Closed by PAULO SINGH on 09/11/24 PROGRESS Observed: 09/11/2024 1:20 PM Status: COMPLETED Source: [facility] HNO ID: [id number] Author: PAULO SINGH MD Service: ? 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 Following additional imaging, including MRI breast bilateral, CT CAP, echocardiogram she will be ready for initiation of neoadjuvant chemotherapy with immunotherapy. Preceding this the patient desired to have an opinion with one of our [facility] breast surgeons and may need lymph node sampling prior to start of therapy. Given TNBCa stage IIA high risk disease, will proceed with neoadjuvant systemic therapy. Neoadjuvant treatment with Keynote 512 - MRI, 4 cycles keytruda Carboplatin + taxol - MRI - 4 cycles keytruda AC MRI then surgery. Her genetic testing was negative. Appears to have good response with 2 cycles of therapy on examination of right breast. Completed Keytruda in February 2024 and has had right lumpectomy mid-October 2023. Unfortunately, she has an abnormality that will need biopsied in the right breast that is a possible recurrence - which turned out benign. PLAN: Triage to call with tumor marker results RTC in 12 weeks Labs with port same day Plan for exam same day HPI: CASE HISTORY: Reverse Chronological Order 08/21/2024 - Bilateral Diagnostic Mammogram: Finding 1: Stable calcifications in the lateral left breast are probably benign. Follow-up with diagnostic mammogram is recommended in 6 months. Finding 2: The asymmetry in the upper outer quadrant of the right breast is benign. BI-RADS Category 3: Probably Benign 05/04/2024 - US Thyroid/Parathyroid: Thyroid nodule(s) present is/are clinically insignificant. No surveillance is advised. 03/14/2024 - Breast, right, at 11:00, 4 cm from the nipple, mass, Q clip, ultrasound-guided core biopsy: Benign breast parenchyma with markedly dense stromal fibrosis. Rare microcalcifications are present within benign breast. 02/21/2024 - Diagnostic Mammogram AND Ultrasound: Mammogram: Finding 1: Irregular mass in the right breast is suspicious of malignancy. An ultrasound guided biopsy is recommended. Findings were discussed with the patient at the time of examination. Finding 2: Calcifications in the left breast are probably benign. Follow-up in 6 months is recommended. Finding 3: Biopsy marker clips in both breasts are benign. BI-RADS Category 4: Suspicious Ultrasound: Finding 1: Ultrasound demonstrates an irregular mass measuring 1.0 x 0.8 x 0.9cm in the right breast at 11 o'clock located 4 cm from the nipple. Internal echotexture is hypoechoic. Color flow imaging demonstrates vascularity is not present. The ipsilateral axilla was surveyed, and no abnormal lymph nodes were visible. 12/20/2023-01/19/2024 - Radiation to right breast 11/02/2023 - Right breast lumpectomy: Dr. Reynoso A. Right axillary sentinel lymph node, excision: - One lymph node, negative for carcinoma (0/1). B. Right breast, lumpectomy: - Residual invasive ductal carcinoma with treatment effect, see comment and synoptic report. - Prior biopsy site, biopsy clip, and Marianela shipping processor device. C, D, E, F, G, H. Right breast, multiple margins, excision: - The final inked margin is negative for carcinoma. ER-, CO-, HER2- 10/27/2023-03/08/2024 - 4 cycles single agent Keytruda 400mg q 6 weeks 10/26/2023 - Infrared activated electromagnetic reflector device placement for the mass in the right breast at 12 o'clock middle depth 5 cm from the nipple 10/12/2023 - MRI Breast: Continued interval treatment response to neoadjuvant systemic therapy of the known biopsy-proven malignancy in the 12:00 right breast, now measuring 8 mm (with previous serial measurements as above). No suspicious areas of enhancement in the left breast. No lymphadenopathy. Mild motion limitations. 09/26/2023 - US Extremity Nonvascular LT: 2 indeterminate hyperechogenic left axillary lesions measuring 0.7 and 0.6 cm. In light of the patient's invasive ductal carcinoma, metastatic disease to lymph nodes should be considered. 07/07/2023-09/15/2023 - 4 cycles A/C + Keytruda q 21 days 07/01/2023 - MRI Breast: BI-RADS 6 - Known Malignancy. Right Breast: 1.5 cm irregular enhancing mass in the right breast at 12:00 anterior depth corresponds with patient's known site of malignancy. This previously measured 2.2 cm in maximum dimension. 03/17/2023-06/10/2023 - 4 cycles days 1, 8, 15 q 21 days Carboplatin / Taxol / Keytruda 03/15/2023 - MRI Breast: 2.2 cm spiculated enhancing mass in the 12:00 anterior depth-middle depth right breast at site of biopsy-proven malignancy. No other definite suspicious areas of enhancement in either breast. No lymphadenopathy. 03/10/2023 - USG breast bx 2nd right breast lesion: - Negative for additional malignancy 03/09/2023 - CT CAP: Negative for metastatic disease. Hepatic steatosis. 01/20/2023 - Right breast mass biopsy: - Invasive ductal carcinoma grade 3 ER 0, CO 0 HER2 1+ by IHC negative. 01/20/2023 - Post-biopsy diagnostic mammography metallic marker placed in targeted location within the upper outer quadrant right breast. 01/17/2023 - Diagnostic Mammography: Right breast category 4 suspicious for malignancy US demonstrates bilobed hypoechoic mass with acoustic shadowing smaller component measuring 5.9 mm connected to a larger deeper 8.3 mm lesion with a connecting stalk measuring 2.3 mm. 12/2022 - Mid December felt a lump in her right breast 07/2022 - Normal mammogram Updated Visit, September 11, 2024: Jyoti Hdz returns for a follow up. Recent diagnostic mammogram showed stable benign calcifications in the left breast and a benign asymmetry in the right breast. She denies any changes to the breast, pain is unchanged. She has a follow up with Dr. Reynoso next week, will defer my exam today. She complains of fatigue today due to EBV. But could also be due to weight gain. 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 Updated Visit, May 31, 2024: Jyoti Hdz returns with her , Alex. She had a biopsy of the right breast in 02/2024 - results benign. Her annual ultrasound of the thyroid confirmed clinically insignificant nodules. She complains of decreased stamina and bilateral foot neuropathy - treats with gabapentin 300mg TID. Will continue to follow up q 12 weeks. Chaperoned Breast Exam noted below. Updated Visit, March 08, 2024: Jyoti Hdz returns for her final Keytruda infusion. She had a mammogram and ultrasound on 02/20, an irregular mass that is suspicious for malignancy was seen in the right breast. She has a biopsy scheduled for next week. She reports she is still fatigued due to radiation. She had a syncopal episode recently. Updated Visit, January 26, 2024: Jyoti Hdz returns today for Keytruda. She completed about 4 weeks of radiation to the right breast. She endorses expected skin changes, although says it is improving. She is also experiencing fatigue. She also mentions she is overdue for an annual thyroid ultrasound, at [facility], to monitor nodules - will order at next visit. Deferred breast exam as Dr. John had recently examined her. Updated Visit, November 18, 2023: Had her right breast surgery and did very well. Pathology with responsive tumor and LN negative. TNBC. Some neuropathy continues. Breast is hard and had some post-op cellulitis that has cleared. Updated Visit, October 27, 2023: Jyoti Hdz returns today with Alex. MRI breast shows continued response to treatment. She developed pustules w/ itching on her arms, chest, AND legs and tingling/burning in her lips. She wonders if this was an allergic reaction so has discontinued some of her medications. She is wearing a cervical collar due to a pinched nerve in her neck. She complains of severe pain and occasional dizziness. She is unable to have an MRI for her neck since she cannot lay on her chest due to her upcoming lumpectomy. Updated Visit, September 08, 2023: Severe cold and sore throat last week causing her to cancel US. Alex called me and I had recommended ER for severe teeth and throat pain. She ended up not going. Continues to have numerous complaints of body aches, anxiety etc. But no definitive illness. Symptoms have resolved, but she would like another week to finish her recovery. Chaperoned Breast Exam noted below. Updated Visit, August 18, 2023: Jyoti Thao returns for follow-up and continued treatment. Overall, she is tolerating treatment well. She has been experiencing some tooth sensitivity. She has been using a TENS unit for her foot neuropathy. She denies any fevers, chills, night sweats or signs/symptoms of infection. No bleeding or abnormal bruising. She wishes to proceed with treatment as planned. Updated Visit, July 28, 2023: Jyoti Thao returns for follow-up and continued treatment. Overall, she is tolerating treatment well. She denies cough, shortness of breath and other pulmonary complaints. She denies any skin rashes. 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 She complains of feeling tired with treatment. She denies fevers, chills, night sweats and signs/symptoms of infection. No bleeding or abnormal bruising. Today she expresses some concerns about having her teeth cleaned. Updated Visit, July 07, 2023: Jyoti Hdz returns today with Alex. She has had a cold for a couple weeks, is finally now getting over it. She notes she will start wearing a mask when she goes out. Recent MRI shows response to treatment. Her fingernails and toenails are turning black - side effect of chemo. Also reports neuropathy in her feet and fingertips. Proceeding with C5 today. Chaperoned Breast Exam noted below. Updated Visit, May 27, 2023: Jyoti Hdz returns with Alex for follow up and to begin C4 of her treatment. She reports that the hydration has been helping. I encouraged her not to hesitate to reach out if she feels she needs more fluids. We reviewed her labs, which show decreases in blood counts so she is more anemic today. Her chemistries look great. She has not done a self-breast exam since I last saw her, we will conduct another prior to starting Adriamycin. I also will order a breast MRI. She will need education for the new regimen. She reports the only thing bothering her right now is some mild neuropathy in her toes, and some random brief shooting pains in her legs and feet. Her BGs have been running on average in the 150s-160s, with some days in the 130s. We briefly discussed possible timeline for finishing out her treatment course and what she will decide for her surgery. Updated Visit, April 29, 2023: Jyoti Hdz returns today with Alex for follow up. She is having a [...] a lot of fluids. Has seen the operation research analyst. Even though she does not necessarily feel nauseous, her stomach pain may be a different manifestation of nausea, so she should consider taking her antiemetic anyway when she needs to eat. She is also having bowel troubles with using the bathroom, she is having frequent diarrhea. Tried Imodium but this madeher very constipated for several days and she [...] we should hold treatment for a week. Chaperoned Breast Exam noted below. Updated Visit, April 08, 2023: Jyoti Hzd returns today for follow up accompanied by her Alex. She has lost the rest of her [...] her that I see early response already. Chaperoned Breast Exam noted below. Updated Visit, April 04, 2023: Jyoti Thao received cycle 1 day 1 carboplatin, Taxol [...] Updated Visit, March 17, 2023: Here with Alex. Is Tu Cruz's mother. Ready for neoadjuvant treatment given high risk disease. Reviewed MRI, biopsy of second spot was negative. Thoroughly reviewed patients treatment plan. Initial Visit, February 21, 2023: Jyoti Thao presents today Hematology and Oncology evaluation. She is a 67 year old female who has a history of POTS syndrome and is adopted who is [employer] genetic testing is negative. She gives a story of having a normal mammogram in July 2022 and subsequently felt a lump in mid December 2022. She underwent imaging in [facility] and then had a biopsy that [...] this interferes with her plans to buy [employer] in [place] [facility] and move there this year with her Tim. Despite high risk disease and the need for a protracted course of neoadjuvant chemotherapy according to keynote 512, I think she will be able to get to the [employer] multiple times. I reassured her that she appears to have curable disease and indeed she felt better. Although her work-up was initiated locally, she would like to transition her care to [facility] and I will make appropriate referrals. M grandmother Cheatham's Mother stroke Birthfather?? Heart attack in 70s Chaperoned Breast Exam noted below. REVIEW OF SYSTEMS Per HPI and otherwise negative by full review of organ systems. ECOG PERFORMANCE STATUS: 0 PHYSICAL EXAMINATION: Vitals: BP 122/77 Pulse 89 Temp (Src) 97.8 (Temporal) Resp 18 Ht 5' 5.984 (1.68m) Wt 184 lb 1.4 oz (83.5kg) SpO2 97% BMI 29.73 kg/(m2). Body surface area is 1.97 meters squared. Exam limited to gross visualization where appropriate. Gen.: This is an age-appropriate patient in no acute distress. Head: Appears atraumatic with no visible lesions. Eyes: Pupils equally round and reactive to light, extraocular muscles are intact. Neck: Supple. Respiratory: Appears to be respiring comfortably. Neurologic: Nonfocal to gross visualization. Alert and oriented ?3. Psychiatric: No evidence of inappropriate depression but remains highly anxious. Skin: Visible areas of skin without lesions, wounds or petechiae. Erythematous blanching rash on her forearms and around the port on her chest, will monitor. Prior exams for reference: Chaperoned Breast Exam May 31, 2024 (Sara Clinton) : Right breast shows radiation changes and slight lymphedema, otherwise a normal exam, Left breast is normal to palpation. [place] exam is negative bilaterally. Chaperoned Breast Exam September 08, 2023 (Tesha Evangelista) : Right breast is tender but no discreet masses, Left breast is mildly tender and normal. Socorro exam is negative bilaterally. Chaperoned Breast Exam July 07, 2023 (Sara Clinton) : Right breast is tender but no discreet masses, Left breast is mildly tender and normal. Socorro exam is negative bilaterally. Chaperoned Breast Exam April 29, 2023 (Sara Clinton) : Right breast shows continued improvement, now lesion measure 0.5 cm, Left breast was not examined. Chaperoned Breast Exam April 08, 2023 (Evan Lambert): Right breast mass at 12 o' clock just above the NAC definitely feels smaller (approx. 1.5 cm), Left breast is normal. Chaperoned Breast Exam February 21, 2023 (Evan Lambert): Fairly tender right breast with [...] See Comments Aller-Chlor Deconge* Unknown Chlorpheniramine-Ps* Unknown Oyw-[id number]-Xwsvf* Itching Decongest Multi-Act* Other: See Comments Diazepam Other: See Comments sick-headache Diphenhydramine Intolerance Levofloxacin Intolerance Nalbuphine Rash Progesterone Other: See Comments, GI Upset Speeds up metabolism Weight gain and voice hoarse Promethazine Unknown Pseudoephedrine Other: See Comments Other Reaction(s): Hyperactive, severe stimulation Other Reaction(s): Intolerance ANY Decongestant-Hyperactive Pseudoephedrine-Dm-* Intolerance ANY Decongestant-Hyperactive Yyzwlcs-Pwa-Wbx Red* Other: See Comments Other Reaction(s): Unknown Tizanidine Hcl Itching, Other: See Comments Morphine Unknown, GI Upset, Vomiting, Other: See Comments Migraine Tramadol Itching, Unknown Tooth sensitivity Only tolerates low dose Only tolerates low dose MEDICATIONS: metFORMIN (GLUCOPHAGE) 500 mg tablet Take 1 tablet by mouth every 12 hours. ondansetron (ZOFRAN) 8 mg tablet Take 1 tablet by mouth every 8 hours as needed for nausea/vomiting. ibuprofen (MOTRIN) 600 mg tablet Take 400 mg by mouth at bedtime as needed. meclizine (ANTIVERT) 25 mg tab TAKE 1-2 TABLETS BY MOUTH FOUR TIMES A DAY NEEDED FOR DIZZINESS pantoprazole DR (PROTONIX) 40 mg tablet Take 40 mg by mouth once daily. scopolamine (TRANSDERM-SCOP) patch 1.5 mg/72 hr (delivers 1 mg over 3 days) Apply 1 Patch as directed every 72 hours as needed. simvastatin (ZOCOR) 10 mg tablet Take 10 mg by mouth daily at bedtime. triamcinolone acetonide (KENALOG) 0.1 % cream Apply 1 application to affected area once daily. eletriptan (RELPAX) 40 mg tablet TAKE 1 TABLET BY MOUTH AT ONSET OF MODERATE TO SEVERE MIGRAINE. MAY REPEAT DOSE IN 2 HOURS. MAX OF 2 DOSES IN 24 HOURS, 2 DAYS A WEEK levothyroxine (SYNTHROID) 50 mcg tablet Take 50 mcg by mouth once daily. blood sugar diagnostic (BababooUCH VERIO TEST STRIPS) test strip 1 Strip once daily. predniSONE (DELTASONE) 10 mg tablet Take 10 mg by mouth once daily. gabapentin (NEURONTIN) 300 mg capsule Take 1 capsule by mouth three times a day. dicyclomine (BENTYL) 20 mg tablet q 8 HR. hyoscyamine sublingual (LEVSIN SL) 0.125 mg LABORATORY VALUES: WBC (k/uL) Date Value 09/11/2024 7.74 RBC (m/uL) Date Value 09/11/2024 4.01 Hemoglobin (g/dL) Date Value 09/11/2024 11.8 Hematocrit (%) Date Value 09/11/2024 35.4 (L) MCV (fL) Date Value 09/11/2024 88.3 MCH (pg) Date Value 09/11/2024 29.4 MCHC (g/dL) Date Value 09/11/2024 33.3 RDW-CV (%) Date Value 09/11/2024 13.6 Platelet Count (k/uL) Date Value 09/11/2024 311 MPV (fL) Date Value 09/11/2024 9.4 Glucose (mg/dL) Date Value 09/11/2024 222 (H) BUN (mg/dL) Date Value 09/11/2024 13 Creatinine (mg/dL) Date Value 09/11/2024 0.69 Sodium (mmol/L) Date Value 09/11/2024 134 (L) Potassium (mmol/L) Date Value 09/11/2024 4.2 Chloride (mmol/L) Date Value 09/11/2024 99 CO2 (mmol/L) Date Value 09/11/2024 26 Protein, Total (g/dL) Date Value 09/11/2024 6.7 Albumin (g/dL) Date Value 09/11/2024 4.0 Calcium, Total (mg/dL) Date Value 09/11/2024 9.8 Alkaline Phosphatase (U/L) Date Value 09/11/2024 135 (H) Bilirubin, Total (mg/dL) Date Value 09/11/2024 0.2 AST (U/L) Date Value 09/11/2024 18 ALT (U/L) Date Value 09/11/2024 17 Breast CA 15-3 (U/mL) Date Value 11/18/2023 30.4 03/17/2023 25.5 DIAGNOSIS: (C50.411, Z17.0) Malignant neoplasm of upper-outer quadrant of right breast in female, estrogen receptor positive (HCC) (primary encounter diagnosis) Plan: CA 15-3 BLD, COMPREHENSIVE METABOLIC PANEL, COMPLETE BLOOD COUNT AND DIFFERENTIAL PAST MEDICAL HISTORY Diagnosis Date Anemia Arthritis Breast cancer (HCC) Diabetes (HCC) Diverticulitis of colon Salty Bolton virus infection Essential (primary) hypertension Fibrocystic breast GERD (gastroesophageal reflux disease) Hyperlipidemia Hypothyroidism IBS (irritable bowel syndrome) Malignant neoplasm of upper-outer quadrant of right breast in female, estrogen receptor positive (HCC) 02/21/2023 Migraines Nausea without vomiting 04/30/2021 PONV (postoperative nausea and vomiting) 10/21/2023 POTS (postural orthostatic tachycardia syndrome) Small bowel [...] Discectomy PAST SURGICAL HISTORY OF Mass excision right axilla (benign) PAST SURGICAL HISTORY OF Small bowel resection SINUS SURGERY HX SMALL INTESTINE SURGERY HX TONSILLECTOMY HX UNLISTED STOMACH SURGERY Removal stomach polyps VAGINAL HYSTERECTOMY with appendectomy, Meckel's diverticulectomy Social History Tobacco Use Smoking status: Former Current packs/day: 0.00 Types: Cigarettes Quit date: 2016 Years since quittin.3 Passive exposure: Past Smokeless tobacco: Never Tobacco comments: quit smoking in 2014, on and off, 1/3 ppd at most Vaping Use Vaping status: Never Used Substance Use Topics Alcohol use: Not Currently Comment: rarely Drug use: Never FAMILY HISTORY Adopted: Yes Problem Relation Age of Onset Stroke Mother other (addisons) Maternal Grandmother I spent a total of 30 minutes on the date of service which included preparing to see the patient, gsbw-up-nisk patient care, completing clinical documentation, performing a medically appropriate examination, counseling and educating the patient/family/caregiver, ordering medications, tests, or procedures, independently interpreting results (not separately reported), communicating results to the patient/family/caregiver, and care coordination (not separately reported). Paulo Singh MD, CPE Hematology and Oncology Services Provided at: [place], [place] Scribe Attestation: This note was scribed by Renu Sidhu on September 11, 2024 under the direction and supervision of Dr. Paulo Sinhg. I attest that all of the information documented is correct to the best of my knowledge. Provider Attestation: I, Paulo Singh MD, attest that all information documented by the above scribe is correct, and was supervised by me and under my direction. CC: Dr. Zeke Joaquin [address] [facility] [address] [facility] [id number] [address] Makeda Osei [address] [place] [address] [address] Rosalba John PROGRESS Observed: 09/11/2024 10:01 AM Status: COMPLETED Source: [facility] HNO ID: [id number] Author: SUSANA MORALES MD Service: ? Author Type: Physician Type: Progress Notes Filed: 10/09/2024 12:20 Note Text: NEW PATIENT DISTANCE HEALTH VISIT Encounter completed via virtual visit (audio and video) using [employer] software* Provider location during distance health encounter: [facility] Patient location during distance health encounter: Home I have communicated my name and active licensure. The patient's identity and physical location were verified at the time of this visit. Either the patient (as in this case) or their legal sales representative womens health has been informed of the risks and benefits of, and alternatives to treatment through a remote evaluation and consents to proceed with the evaluation remotely. Date of Distance Health Visit :September 11, 2024 [facility] New Patient Distance Health Visit Note Consultation requested by Dr. Makeda Osei MD for an opinion regarding neuropathic symptoms. My final recommendations will be communicated back to the requesting physician by way of shared Medical record or letter to requesting physician via [place] mail. History of Present Illness: Recording using [employer] software for draft documentation of the visit was discussed with the patient/authorized sales representative womens health; all questions welcomed and answered. Patient/authorized sales representative womens health agreed to proceed Mrs. Thao is a pleasant 68-year-old female with a history of breast cancer, diabetes mellitus T2, and POTS, presenting for evaluation of neuropathic symptoms (onset during chemotherapy 02/2023). Neuropathic symptoms: The patient reports severe neuropathy in both feet, which began within the first month of starting chemotherapy for breast cancer in February 2023. She received four cycles of Keytruda, carboplatin, and Taxol, and also underwent immunotherapy every three weeks. Symptoms include constant numbness and a persistent sensation of pins and needles, with occasional sharp pain shooting through her feet. She describes the numbness as a 10/10 and the pain, when it occurs, as a 7-8/10. The pain is not constant, lasting only a few minutes and occurring sometimes multiple times a day, but not daily. She has not identified any specific triggers or alleviating factors for the pain. She also reports a sensation of her feet feeling huge or like a big box after car trips, whether driving or as a passenger. 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 Despite using cruise control, constantly moving her feet, and getting out to walk three to four times during the trip, these measures do not alleviate her symptoms. She is currently taking gabapentin 300 mg three times daily, which she believes helps, though she does not like taking medication. She has also been undergoing pulsed electromagnetic field (PEMF) therapy for two weeks, placing her feet on pads for 45 minutes per session. She reports needing the intensity turned up high due to lack of sensation. She is uncertain of its effectiveness, noting her feet felt worse after the first session but not as bad after subsequent sessions. She has also used an infrared TENS unit for her feet but has backed off due to being busy. She expresses concern about the future, particularly regarding potential amputation due to her diabetes and neuropathy. She has fallen twice, attributing these falls to clumsiness rather than dizziness or neuropathy. She reports being accustomed to the numbness in her feet and does not currently use a cane or walker. She is able to drive, stating she can feel resistance from the accelerator and brake pedals, though she notes she cannot feel anything else. She does not report numbness, tingling, or nerve pain in her hands or fingers. She does not endorse weakness, muscle cramps, muscle twitching, or loss of muscle bulk. She does not report loss of bowel or bladder control. She does not endorse major heat or cold intolerance, though she notes she is really bad with heat due to her POTS and has passed out from cold treatment on her hand in the past. She reports dry eyes, for which she uses Systane, and occasional dry mouth, which she attributes to her medication. She has a history of neck problems, including spinal stenosis and two cervical fusions, the most recent in 2018. She reports a disc failed within seven months of her last , surgery, causing intermittent severe pain. She was advised to hold off on further surgery. She also has a history of two lower back surgeries, including a fusion in 2003 or 2004. She reports occasional lower back pain when standing but does not endorse pain shooting down her legs. During her second course of chemotherapy, she experienced pain down her right buttock and leg, which she describes as possible sciatica. This lasted two to three weeks and was accompanied by neck pain. She reports this has since resolved. She has a history of POTS, with symptoms starting at age [age]. She reports major constipation, which she attributes to her POTS and two bowel resections caused by adhesions. She reports a vagal response when constipated, causing her to german out or black out and hit the floor. She does not take medication for her POTS, stating she has learned to live with it. She was diagnosed with type 2 diabetes over 10 years ago and is not currently on medication. She has metformin for occasional high blood sugar. She reports her A1c was 10.3% in February 2023 but has since improved to 7.1% seven months ago. She attributes her weight gain and diabetes to two Depo-Provera shots, which she believes blew her metabolism, causing her to gain 40 pounds in a month. She reports being really skinny before the shots and experiencing laryngitis for a year and a half afterward. She describes herself as having sensitivities to medications, reacting differently and paradoxically to some. She has a history of migraines and has received Botox injections for treatment. She reports her eyes have been twitching lately, which she attributes to stress. She does not endorse major heat or cold intolerance, though she notes she is really bad with heat due to her POTS and has passed out from cold treatment on her hand in the past. She reports dry eyes, for which she uses Systane, and occasional dry mouth, which she attributes to her medication. She is a former smoker, having quit in 2017 after smoking on and off since her teenage years. She reports drinking a glass of wine once every few months and does not use recreational drugs. 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 She is and has one daughter, who is almost 42 years old. She is adopted and has limited knowledge of her family history. She reports her maternal grandmother had Lucio's disease and at 39, and her mother had a stroke and possibly a heart attack. She has two half-sisters but is unaware of any family history of POTS or neuropathy. She has had genetic testing for cancer, which was negative. Past Diagnostic Results: - (2018) EMG: Conducted prior to chemotherapy; results unknown. PAST MEDICAL HISTORY Diagnosis Date Anemia Arthritis Breast cancer (HCC) Diabetes (HCC) Diverticulitis of colon Salty Bolton virus infection Essential (primary) hypertension Fibrocystic breast GERD (gastroesophageal reflux disease) Hyperlipidemia Hypothyroidism IBS (irritable bowel syndrome) Malignant neoplasm of upper-outer quadrant of right breast in female, estrogen receptor positive (HCC) 02/21/2023 Migraines Nausea without vomiting 04/30/2021 PONV (postoperative nausea and vomiting) 10/21/2023 POTS (postural orthostatic tachycardia syndrome) Small bowel [...] Discectomy PAST SURGICAL HISTORY OF Mass excision right axilla (benign) PAST SURGICAL HISTORY OF Small bowel resection SINUS SURGERY HX SMALL INTESTINE SURGERY HX TONSILLECTOMY HX UNLISTED STOMACH SURGERY Removal stomach polyps VAGINAL HYSTERECTOMY with appendectomy, Meckel's diverticulectomy Medications: Current Outpatient Medications Medication Sig predniSONE (DELTASONE) 10 mg tablet Take 10 mg by mouth once daily. (Patient not taking: Reported on 07/16/2024) gabapentin (NEURONTIN) 300 mg capsule Take 1 capsule by mouth three times a day. metFORMIN (GLUCOPHAGE) 500 mg tablet Take 1 tablet by mouth every 12 hours. (Patient not taking: Reported on 05/31/2024) ondansetron (ZOFRAN) 8 mg tablet Take 1 tablet by mouth every 8 hours as needed for nausea/vomiting. dicyclomine (BENTYL) 20 mg tablet q 8 HR. (Patient not taking: Reported on 07/16/2024) hyoscyamine sublingual (LEVSIN SL) 0.125 mg DISSOLVE 1 TABLET UNDER THE TONGUE EVERY 6 HOURS NEEDED (Patient not taking: Reported on 07/16/2024) ibuprofen (MOTRIN) 600 mg tablet Take 400 mg by mouth at bedtime as needed. meclizine (ANTIVERT) 25 mg tab TAKE 1-2 TABLETS BY MOUTH FOUR TIMES A DAY NEEDED FOR DIZZINESS pantoprazole DR (PROTONIX) 40 mg tablet Take 40 mg by mouth once daily. scopolamine (TRANSDERM-SCOP) patch 1.5 mg/72 hr (delivers 1 mg over 3 days) Apply 1 Patch as directed every 72 hours as needed. simvastatin (ZOCOR) 10 mg tablet Take 10 mg by mouth daily at bedtime. triamcinolone acetonide (KENALOG) 0.1 % cream Apply 1 application to affected area once daily. eletriptan (RELPAX) 40 mg tablet TAKE 1 TABLET BY MOUTH AT ONSET OF MODERATE TO SEVERE MIGRAINE. MAY REPEAT DOSE IN 2 HOURS. MAX OF 2 DOSES IN 24 HOURS, 2 DAYS A WEEK levothyroxine (SYNTHROID) 50 mcg tablet Take 50 mcg by mouth once daily. blood sugar diagnostic (BababooUCH VERIO TEST STRIPS) test strip 1 Strip once daily. No current facility-administered medications for this visit. Allergies: See updated allergies documented below. ALLERGIES Allergen Reactions Hydrocodone Other: See Comments, GI Upset Headaches Oxycodone GI Upset Can take 1/2 tab, but full tab makes her sick 12 Hour Cold Capsule Intolerance Adhesive Other: See Comments Aller-Chlor Deconge* Unknown Chlorpheniramine-Ps* Unknown Ijc-Lytomhmxw-Eliea* Itching Decongest Multi-Act* Other: See Comments Diazepam Other: See Comments sick-headache Diphenhydramine Intolerance Levofloxacin Intolerance Nalbuphine Rash Progesterone Other: See Comments, GI Upset Speeds up metabolism Weight gain and voice hoarse Promethazine Unknown Pseudoephedrine Other: See Comments Other Reaction(s): Hyperactive, severe stimulation Other Reaction(s): Intolerance ANY Decongestant-Hyperactive Pseudoephedrine-Dm-* Intolerance ANY Decongestant-Hyperactive Sphsadt-Puf-Lqv Red* Other: See Comments Other Reaction(s): Unknown Tizanidine Hcl Itching, Other: See Comments Morphine Unknown, GI Upset, Vomiting, Other: See Comments Migraine Tramadol Itching, Unknown Tooth sensitivity Only tolerates low dose Only tolerates low dose Social History Tobacco Use Smoking status: Former Current packs/day: 0.00 Types: Cigarettes Quit date: 2016 Years since quittin.3 Passive exposure: Past Smokeless tobacco: Never Tobacco comments: quit smoking in 2014, on and off, 1/3 ppd at most Vaping Use Vaping status: Never Used Substance Use Topics Alcohol use: Not Currently Comment: rarely Drug use: Never FAMILY HISTORY Adopted: Yes Problem Relation Age of Onset Stroke Mother other (addisons) Maternal Grandmother No known history of neuromuscular disease. ROS: As per HPI OBJECTIVE (what is observable/audible via web cam AND gloria, if applicable): Appears to be with normal mood and affect; facies and facial movements symmetrical, EOMs appear intact and conjugate, no observable ptosis. Speech and voice WNL. OUTSIDE AND INTERNAL RECORDS: Outside medical records, were reviewed during the course of the e-visit. The relevant details are summarized in the HPI above. IMPRESSION AND PLAN: Mrs. Thao is a pleasant 68-year-old female with a history of breast cancer, diabetes mellitus T2 (A1c 7.1% 01/2024), and POTS, presenting for evaluation of neuropathic symptoms (onset during chemotherapy 02/2023). 1. Diabetic polyneuropathy associated with type 2 diabetes mellitus (HCC) (E11.42)- The patient was counseled extensively on the implication of poorly controlled diabetes and other elements of the metabolic syndrome on the symptom exacerbation and progression of peripheral neuropathy. The mainstay of management will be meticulous glycemic control in the context of other lifestyle (including weight loss, exercise and dietary) measures in this regard, as well as antidiabetic medication adherence. She will be following up with her primary care physician accordingly. 2. 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 Neuropathic pain (M79.2) 4. Disturbance of skin sensation (R20.9) - Neuropathic symptoms began in March 2023 following chemotherapy for breast cancer, including four cycles of Keytruda, carboplatin, and Taxol. - Symptoms include severe numbness (10/10) and intermittent sharp pain (7-8/10) in both feet, with no involvement of hands or fingers. - Currently taking gabapentin 300 mg TID; discussed potential increase in dosage if needed. - Initiated alpha lipoic acid 600 mg PO daily to provide neuroprotection and potentially reduce symptoms. - Ordered comprehensive blood work to check for other potential causes of neuropathy, including copper levels and B vitamins. - Advised against using capsaicin cream due to limited efficacy for her symptoms. - Follow-up in one month to review lab results and assess symptom progression. 5. Abnormality of gait and mobility (R26.9) - No current use of assistive devices; falls reported are preventable and not due to weakness. - Encouraged continuation of physical activity, including walking and hiking, as it promotes circulation and nerve stimulation. - Advised wearing protective footwear to prevent injuries due to numbness. - Scheduled follow-up with brick setter operator next week for foot evaluation and management. 6. Personal history of malignant neoplasm of breast (Z85.3) - Completed four cycles of Keytruda, carboplatin, and Taxol. - Follow-up with oncologist Dr. Paulo Singh today. 7. Spinal stenosis, cervical region (M48.02) 8. Spinal stenosis of lumbar region, unspecified whether neurogenic claudication present (M48.061) - History of two cervical fusions (2013, 2018) and two lumbar surgeries, including a fusion ([id number]). - No current radicular pain or lower extremity weakness reported. - Previous EMG performed in [id number]; no recent studies. - Discussed potential contribution of spinal issues to neuropathic symptoms; no further surgical intervention recommended at this time. 9. Postural orthostatic tachycardia syndrome (POTS) (G90.A) - Long-standing history with symptoms of heat and cold intolerance, syncope, and dry eyes. - No current medication management; symptoms managed with lifestyle modifications. To aid with communication, patients (and primary care physicians) can sign up for Performable (or [employer]), which allows online appointment scheduling, transmission of labs results and chart notes, and secure email communication. To establish either account, visit [email or web address]. The duration of this [facility] health appointment visit was 50 minutes (9:06-9: 56 AM). At least 50% of this time was spent in counseling, explanation of diagnosis, planning of further management, and coordination of care. A further 25 mins were spent with documentation comprising this note. Susana Morales MD Staff, [facility] [place] Electronically signed September 11, 2024 10:01 AM Referring provider/ Primary care physician: Makeda Osei [address] [place] [address] CNPN Observed: 09/11/2024 12:00 AM Status: COMPLETED Source: [facility] Telephone ([facility]) MINAJYOTI ([id number]) 1955 F Date Time Provider Department 09/11/24 PAULO SINGH [facility] During your visit today, we recorded the following information about you: Mariela Robles 09/11/2024 4:05 PM Signed Frieda Gracia, JEVON 09/12/2024 10:21 AM Signed Pt informed of CA 27.29 and CA 15.3 results. Pt's CA 15.3 is slightly above normal. Any concerns at this time? JEVON Holden Jaimee, ORTIZ.SPORTS PHYSIOLOGIST 09/12/2024 4:49 PM Signed No concerns at this time, Thanks. Frieda Gracia RN 09/13/2024 10:19 AM Signed Pt notified and verbalizes understanding. Frieda Gracia RN Allergies As of Date: 09/11/2024 Noted Allergy Reaction HYDROCODONE 02/10/2018 14 - Other: See Comments 8 - GI Upset Comments: Headaches OXYCODONE 04/18/2018 8 - GI Upset Comments: Can take 1/2 tab, but full tab makes her sick 12 HOUR COLD CAPSULE 11/05/2019 5 - Intolerance ADHESIVE 03/01/2022 14 - Other: See Comments ALLER-CHLOR DECONGESTANT 03/01/2022 16 - Unknown CHLORPHENIRAMINE-PSEUDOEPHED 02/21/2023 16 - Unknown [id number] 09/08/2017 9 - Itching DECONGEST MULTI-ACTION 12/03/2019 [...] severe stimulation Other Reaction(s): Intolerance ANY Decongestant-Hyperactive [id number] 04/02/2019 5 - Intolerance Comments: ANY Decongestant-Hyperactive [id number] REDUCTASE INHIBIT*08/24/2021 14 - Other: See Comments Comments: Other Reaction(s): Unknown TIZANIDINE HCL 09/30/2023 9 - Itching 14 - Other: See Comments MORPHINE 07/05/2011 16 - Unknown 8 - GI Upset 11 - Vomiting 14 - Other: See Comments Comments: Migraine TRAMADOL 09/05/2013 9 - Itching 16 - Unknown Comments: Tooth sensitivity Only tolerates low dose Only tolerates low dose Date Reviewed: 09/11/2024 Reviewed by: Yodit Collier MA - Fully Assessed Reason for Visit: Results [95] Prescriptions as of 09/13/2024 - gabapentin (NEURONTIN) 300 mg capsule Take 1 capsule by mouth three times a day. - metFORMIN (GLUCOPHAGE) 500 mg tablet Take 1 tablet by mouth every 12 hours. - ondansetron (ZOFRAN) 8 mg tablet Take 1 tablet by mouth every 8 hours as needed for nausea/vomiting. - ibuprofen (MOTRIN) 600 mg tablet Take 400 mg by mouth at bedtime as needed. - meclizine (ANTIVERT) 25 mg tab TAKE 1-2 TABLETS BY MOUTH FOUR TIMES A DAY NEEDED FOR DIZZINESS - pantoprazole DR (PROTONIX) 40 mg tablet Take 40 mg by mouth once daily. - scopolamine (TRANSDERM-SCOP) patch 1.5 mg/72 hr (delivers 1 mg over 3 days) Apply 1 Patch as directed every 72 hours as needed. - simvastatin (ZOCOR) 10 mg tablet Take 10 mg by mouth daily at bedtime. - triamcinolone acetonide (KENALOG) 0.1 % cream Apply 1 application to affected area once daily. - eletriptan (RELPAX) 40 mg tablet TAKE 1 TABLET BY MOUTH AT ONSET OF MODERATE TO SEVERE MIGRAINE. MAY REPEAT DOSE IN 2 HOURS. MAX OF 2 DOSES IN 24 HOURS, 2 DAYS A WEEK - levothyroxine (SYNTHROID) 50 mcg tablet Take 50 mcg by mouth once daily. - blood sugar diagnostic (BababooUCH VERIO TEST STRIPS) test strip 1 Strip once daily. 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9] 04/29/2023 Blood glucose elevated [R73.9] 04/29/2023 PONV (postoperative nausea and vomiting) [R11.2*10/21/2023 Encounter Status:Closed by FRIEDA GRACIA on 09/13/24 [facility] Observed: 08/21/2024 11:49 AM Status: F Source: [facility] * * *Final Report* * * DATE OF EXAM: Aug 21 2024 11:49AM W 0627 - [facility] / PROCEDURE REASON: multiple diagnoses * * * * Physician Interpretation * * * * RESULT: [facility] [address] [place] [address] #[id number] - SUSIE [facility]ATER[facility] HISTORY: 68 year-old patient seen for diagnostic evaluation of short term follow-up from a previous mammogram in both breasts. The patient has the following personal history of breast cancer: breast cancer in the right breast at age 67 and breast cancer in the right breast at age 67. COMPARISON STUDIES: The present examination has been compared to prior imaging studies dated 03/10/2023 (mammogram), 10/26/2023 (mammogram), 02/21/2024 (mammogram), 02/21/2024 (ultrasound), 03/14/2024 (mammogram) and 08/21/2024 (ultrasound). MAMMOGRAM TECHNIQUE: The study was acquired using full field digital technology and interpreted from soft copy. Digital Breast Tomosynthesis (DBT) images were obtained and used to assist in the interpretation of this examination. MAMMOGRAM FINDINGS: The breasts are heterogeneously dense, which may obscure small masses. Finding 1: Follow-up examination was performed for the calcifications in the left breast, lateral seen on 02/21/2024. On the present examination, there are stable grouped coarse heterogeneous calcifications in the lateral left breast. Finding 2: Follow-up examination was performed for the asymmetry in the right breast, upper outer quadrant seen on 02/21/2024. On the present examination, there is an asymmetry with associated biopsy marker and post-operative changes in the upper outer quadrant of the right breast. This asymmetry has become less prominent. Findings are consistent with previous benign core biopsy. Finding 3: There are biopsy markers in both breasts. IMPRESSION: Finding 1: Stable calcifications in the lateral left breast are probably benign. Follow-up with diagnostic mammogram is recommended in 6 months. Finding 2: The asymmetry in the upper outer quadrant of the right breast is benign. BI-RADS Category 3: Probably Benign RISK: Due to the reported patient's history, the patient's estimated lifetime risk of developing breast cancer cannot be assessed at this time. We encourage all patients to talk with their providers about their risk assessment, further recommendations for managing breast health, and appropriate supplemental screening options if the patient has dense breast tissue. Interpreting Radiologist: Maciel Cuevas M.D. Electronically signed on: 08/21/2024 Offender Job Retention Specialist: DAO Soteloribe Date/Time: Aug 21 2024 11:33A Dictated by : MACIEL CUEVAS MD This examination was interpreted and the report reviewed and electronically signed by: MACIEL CUEVAS MD on Aug 21 2024 12:04PM EST [id number] PROGRESS Observed: 08/21/2024 11:40 AM Status: COMPLETED Source: [facility] HNO ID: [id number] Author: EMMY MCNAMARA RT(Lucia) Service: Radiology Author Type: Technologist Type: Progress Notes Filed: 08/21/2024 12:06 Note Text: Radiology Service Progress Note PATIENT NAME: Jyoti Thao DATE OF SERVICE: August 21, 2024 TIME: 12:06 PM PATIENT IDENTITY VERIFICATION COMPLETED USING TWO (2) IDENTIFIERS: Name and Date of confirmed by patient verbally and Name and Date of confirmed by identification band. FALL SCREENING: Has the patient had 2 falls in the last year or 1 fall with injury or currently using an Ambulatory Assistive Device (Walker, Cane, Wheelchair, Crutches, etc.)? No PATIENT GENDER DATA: Assigned female at . status: : No status: NO. PATIENT RELEVANT IMPLANT DATA REVIEWED: Not Applicable PATIENT PRESENTS WITH AN IMPLANTABLE OR ATTACHED RN CARDIOVASCULAR: No RADIOLOGY DEPARTMENT: Mammography PERIPHERAL IV DATA: Not applicable SIGNED BY: RT Nahomy(R) August 21, 2024 12:06 PM PROGRESS Observed: 07/16/2024 11:44 PM Status: COMPLETED Source: [facility] HNO ID: [id number] Author: ABISAI JOHN MD Service: ? Author Type: Physician Type: Progress Notes Filed: 08/14/2024 03:14 Note Text: Radiation Oncology - Follow Up Note PATIENT NAME: Jyoti Thao PATIENT DIAGNOSIS/PATIENT IDENTIFICATION: Ms. Thao is a 68-year-old woman recently diagnosed with [id number] triple negative breast cancer arising from the right breast having completed a course of neoadjuvant chemotherapy on 09/15/2023 under the care of Dr Singh. She underwent right breast wide local excision and sentinel node biopsy as planned on 11/02/[address] Reynoso. Pathology revealed a residual 8 mm of high-grade IDC with negative margins and 0/1 sentinel lymph nodes positive for metastatic disease. [id number]. She completed a course of postoperative radiation therapy to the right breast on 01/19/2024 (5005 cGy delivered in 20 fractions). Follow-up INTERVAL HISTORY: Ms. Thao returns to clinic today for routine follow-up approximately six months after the completion of her radiation treatments.. In the interim, she underwent bilateral mammogram on 02/21/2024 showing an irregular mass in the right breast suspicious for malignancy. Also noted were calcifications of the left breast that were felt to be likely benign with recommendation for repeat mammogram in 6 months which is scheduled for 08/21/2024. A biopsy of the right sided mass was obtained on 03/14/2024 and was benign. Today she notes intermittent tenderness in the right breast with no skin irritation or breakdown. She does use a moisturizer intermittently and reports no new lumps or bumps in either breast or axilla. She notes intact range of motion of the right upper extremity with no signs of lymphedema. She endorses improving fatigue with good appetite and hydration and stable weight. ALLERGIES ALLERGIES Allergen Reactions Hydrocodone Other: See Comments, GI Upset Headaches Oxycodone GI Upset Can take 1/2 tab, but full tab makes her sick 12 Hour Cold Capsule Intolerance Adhesive Other: See Comments Aller-Chlor Deconge* Unknown Chlorpheniramine-Ps* Unknown Wol-Zlvnepnfx-Dgjdu* Itching Decongest Multi-Act* Other: See Comments Diazepam Other: See Comments sick-headache Diphenhydramine Intolerance Levofloxacin Intolerance Nalbuphine Rash Progesterone Other: See Comments, GI Upset Speeds up metabolism Weight gain and voice hoarse Promethazine Unknown Pseudoephedrine Other: See Comments Other Reaction(s): Hyperactive, severe stimulation Other Reaction(s): Intolerance ANY Decongestant-Hyperactive Pseudoephedrine-Dm-* Intolerance ANY Decongestant-Hyperactive Bspbvza-Zcs-Jph Red* Other: See Comments Other Reaction(s): Unknown Tizanidine Hcl Itching, Other: See Comments Morphine Unknown, GI Upset, Vomiting, Other: See Comments Migraine Tramadol Itching, Unknown Tooth sensitivity Only tolerates low dose Only tolerates low dose MEDICATIONS: Current Outpatient Medications: gabapentin (NEURONTIN) 300 mg capsule ondansetron (ZOFRAN) 8 mg tablet ibuprofen (MOTRIN) 600 mg tablet meclizine (ANTIVERT) [address] (PROTONIX) 40 mg tablet scopolamine (TRANSDERM-SCOP) patch 1.5 mg/72 hr (delivers 1 mg over 3 days) simvastatin (ZOCOR) 10 mg tablet triamcinolone acetonide (KENALOG) 0.1 % cream eletriptan (RELPAX) 40 mg tablet levothyroxine (SYNTHROID) 50 mcg tablet blood sugar diagnostic (LOGIDOC-SolutionsTOUCH VERIO TEST STRIPS) test strip predniSONE (DELTASONE) 10 mg tablet metFORMIN (GLUCOPHAGE) 500 mg tablet dicyclomine (BENTYL) 20 mg tablet hyoscyamine sublingual (LEVSIN SL) 0.125 mg PHYSICAL EXAM: GENERAL: Middle-age woman sitting in chair in no acute distress. VITALS: BP 123/85 Pulse 105 Temp 98 Resp 18 Wt 185 lb 3 oz (84.0kg) SpO2 98% KPS: 90 HEENT: NC/AT, anicteric sclera HEART: S1S2 LUNGS: non-labored breathing ABDOMEN: soft MUSCULOSKELETAL: no peripheral edema, moves all extremities. NEURO: no focal deficit; AANDO X3. PATHOLOGIC DATA: 03/14/2024 FINAL DIAGNOSIS A. Breast, right, at 11:00, 4 cm from the nipple, mass, Q clip, ultrasound-guided core biopsy: ---Benign breast parenchyma with markedly dense stromal fibrosis. ---Rare microcalcifications are present within benign breast. RADIOLOGIC DATA: Bilateral Mammogram (02/21/2024) IMPRESSION: Finding 1: Irregular mass in the right breast is suspicious of malignancy. An ultrasound guided biopsy is recommended. Findings were discussed with the patient at the time of examination. Informed consent for the recommended biopsy was explained and signed by the patient. Finding 2: Calcifications in the left breast are probably benign. Follow-up in 6 months is recommended. Finding 3: Biopsy marker clips in both breasts are benign. BI-RADS Category 4: Suspicious ASSESSMENT AND PLAN: Ms. Thao is a 68-year-old woman recently diagnosed with [id number] triple negative breast cancer arising from the right breast having completed a course of neoadjuvant chemotherapy on 09/15/2023 under the care of Dr Singh. She underwent right breast wide local excision and sentinel node biopsy as planned on 11/02/[address] Reynoso. Pathology revealed a residual 8 mm of high-grade IDC with negative margins and 0/1 sentinel lymph nodes positive for metastatic disease. [id number]. She completed a course of postoperative radiation therapy to the right breast on 01/19/2024 (5005 cGy delivered in 20 fractions). Ms. thao is doing well clinically approximately 6 months after the completion of her postoperative radiation treatment to the right breast with no significant residual sequela at this time. Initial posttreatment imaging with mammogram from 02/21/2024 did note a suspicious mass in the right breast which was biopsied on 03/14/2024 and was benign. Also noted was likely benign calcifications in the left breast with recommendation for repeat mammogram in 6 months which is scheduled for 08/21/2024. She will continue to follow-up with Dr. Singh and Dr. Reynoso and will have an open follow-up with us here in the radiation medicine clinic. The patient is aware to contact the clinic in the interim should any questions or concerns arise. Thank you for allowing us to participate in the care of this patient. Signed by: Abisai John MD I spent a total of 20 minutes on the date of the service which included preparing to see the patient, [id number] patient care, and counseling and educating the patient/family/caregiver. This document has been created with the use of voice recognition technology. It may contain inaccuracies, misspellings, inaccurate syntax or inappropriate word context that are a result of the inadequacies/shortcomings of said technology/software. CNOV Observed: 07/16/2024 10:30 AM Status: COMPLETED Source: [facility] Office Visit (RADTSA) JYOTI THAO ([id number]) 1955 F Date Time Provider Department 07/16/24 10:30 AM ABISAI JOHN During your visit today, we recorded the following information about you: Temperature Pulse Respiration Blood pressure 98 degrees 105/minute 18/minute 123/85 Weight 84 kg Abisai John MD 08/14/2024 3:14 AM Addendum Radiation Oncology - Follow Up Note PATIENT NAME: Jyoti Thao PATIENT DIAGNOSIS/PATIENT IDENTIFICATION: Ms. Thao is a 68-year-old woman recently diagnosed with [id number] triple negative breast cancer arising from the right breast having completed a course of neoadjuvant chemotherapy on 09/15/2023 under the care of Dr Singh. She underwent right breast wide local excision and sentinel node biopsy as planned on 11/02/[address] Reynoso. Pathology revealed a residual 8 mm of high-grade IDC with negative margins and 0/1 sentinel lymph nodes positive for metastatic disease. [id number]. She completed a course of postoperative radiation therapy to the right breast on 01/19/2024 (5005 cGy delivered in 20 fractions). Follow-up INTERVAL HISTORY: Ms. Thao returns to clinic today for routine follow-up approximately six months after the completion of her radiation treatments.. In the interim, she underwent bilateral mammogram on 02/21/2024 showing an irregular mass in the right breast suspicious for malignancy. Also noted were calcifications of the left breast that were felt to be likely benign with recommendation for repeat mammogram in 6 months which is scheduled for 08/21/2024. A biopsy of the right sided mass was obtained on 03/14/2024 and was benign. Today she notes intermittent tenderness in the right breast with no skin irritation or breakdown. She does use a moisturizer intermittently and reports no new lumps or bumps in either breast or axilla. She notes intact range of motion of the right upper extremity with no signs of lymphedema. She endorses improving fatigue with good appetite and hydration and stable weight. ALLERGIES ALLERGIES Allergen Reactions Hydrocodone Other: See Comments, GI Upset Headaches Oxycodone GI Upset Can take 1/2 tab, but full tab makes her sick 12 Hour Cold Capsule Intolerance Adhesive Other: See Comments Aller-Chlor Deconge* Unknown Chlorpheniramine-Ps* Unknown Gia-Jkotwgljn-Dvlbi* Itching Decongest Multi-Act* Other: See Comments Diazepam Other: See Comments sick-headache Diphenhydramine Intolerance Levofloxacin Intolerance Nalbuphine Rash Progesterone Other: See Comments, GI Upset Speeds up metabolism Weight gain and voice hoarse Promethazine Unknown Pseudoephedrine Other: See Comments Other Reaction(s): Hyperactive, severe stimulation Other Reaction(s): Intolerance ANY Decongestant-Hyperactive Pseudoephedrine-Dm-* Intolerance ANY Decongestant-Hyperactive Ruadhap-Lqt-Ytn Red* Other: See Comments Other Reaction(s): Unknown Tizanidine Hcl Itching, Other: See Comments Morphine Unknown, GI Upset, Vomiting, Other: See Comments Migraine Tramadol Itching, Unknown Tooth sensitivity Only tolerates low dose Only tolerates low dose MEDICATIONS: Current Outpatient Medications: gabapentin (NEURONTIN) 300 mg capsule ondansetron (ZOFRAN) 8 mg tablet ibuprofen (MOTRIN) 600 mg tablet meclizine (ANTIVERT) [address] (PROTONIX) 40 mg tablet scopolamine (TRANSDERM-SCOP) patch 1.5 mg/72 hr (delivers 1 mg over 3 days) simvastatin (ZOCOR) 10 mg tablet triamcinolone acetonide (KENALOG) 0.1 % cream eletriptan (RELPAX) 40 mg tablet levothyroxine (SYNTHROID) 50 mcg tablet blood sugar diagnostic (ONETOUCH VERIO TEST STRIPS) test strip predniSONE (DELTASONE) 10 mg tablet metFORMIN (GLUCOPHAGE) 500 mg tablet dicyclomine (BENTYL) 20 mg tablet hyoscyamine sublingual (LEVSIN SL) 0.125 mg PHYSICAL EXAM: GENERAL: Middle-age woman sitting in chair in no acute distress. VITALS: BP 123/85 Pulse 105 Temp 98 Resp 18 Wt 185 lb 3 oz (84.0kg) SpO2 98% KPS: 90 HEENT: NC/AT, anicteric sclera HEART: S1S2 LUNGS: non-labored breathing ABDOMEN: soft MUSCULOSKELETAL: no peripheral edema, moves all extremities. NEURO: no focal deficit; AANDO X3. PATHOLOGIC DATA: 03/14/2024 FINAL DIAGNOSIS A. Breast, right, at 11:00, 4 cm from the nipple, mass, Q clip, ultrasound-guided core biopsy: ---Benign breast parenchyma with markedly dense stromal fibrosis. ---Rare microcalcifications are present within benign breast. RADIOLOGIC DATA: Bilateral Mammogram (02/21/2024) IMPRESSION: Finding 1: Irregular mass in the right breast is suspicious of malignancy. An ultrasound guided biopsy is recommended. Findings were discussed with the patient at the time of examination. Informed consent for the recommended biopsy was explained and signed by the patient. Finding 2: Calcifications in the left breast are probably benign. Follow-up in 6 months is recommended. Finding 3: Biopsy marker clips in both breasts are benign. BI-RADS Category 4: Suspicious ASSESSMENT AND PLAN: Ms. Thao is a 68-year-old woman recently diagnosed with [id number] triple negative breast cancer arising from the right breast having completed a course of neoadjuvant chemotherapy on 09/15/2023 under the care of Dr Singh. She underwent right breast wide local excision and sentinel node biopsy as planned on 11/02/[address] Reynoso. Pathology revealed a residual 8 mm of high-grade IDC with negative margins and 0/1 sentinel lymph nodes positive for metastatic disease. [id number]. She completed a course of postoperative radiation therapy to the right breast on 01/19/2024 (5005 cGy delivered in 20 fractions). Ms. thao is doing well clinically approximately 6 months after the completion of her postoperative radiation treatment to the right breast with no significant residual sequela at this time. Initial posttreatment imaging with mammogram from 02/21/2024 did note a suspicious mass in the right breast which was biopsied on 03/14/2024 and was benign. Also noted was likely benign calcifications in the left breast with recommendation for repeat mammogram in 6 months which is scheduled for 08/21/2024. She will continue to follow-up with Dr. Singh and Dr. Reynoso and will have an open follow-up with us here in the radiation medicine clinic. The patient is aware to contact the clinic in the interim should any questions or concerns arise. Thank you for allowing us to participate in the care of this patient. Signed by: Abisai John MD I spent a total of 20 minutes on the date of the service which included preparing to see the patient, dige-yx-[id number] patient care, and counseling and educating the patient/family/caregiver. This document has been created with the use of voice recognition technology. It may contain inaccuracies, misspellings, inaccurate syntax or inappropriate word context that are a result of the inadequacies/shortcomings of said technology/software. Referring Provider: SELF [[id number]] Allergies As of Date: 07/16/2024 Noted Allergy Reaction HYDROCODONE 02/10/2018 14 - Other: See Comments 8 - GI Upset Comments: Headaches OXYCODONE 04/18/2018 8 - GI Upset Comments: Can take 1/2 tab, but full tab makes her sick 12 HOUR COLD CAPSULE 11/05/2019 5 - Intolerance ADHESIVE 03/01/2022 14 - Other: See Comments ALLER-CHLOR DECONGESTANT 03/01/2022 16 - Unknown CHLORPHENIRAMINE-PSEUDOEPHED 02/21/2023 16 - Unknown [id number] 09/08/2017 9 - Itching DECONGEST MULTI-ACTION 12/03/2019 [...] severe stimulation Other Reaction(s): Intolerance ANY Decongestant-Hyperactive [id number] 04/02/2019 5 - Intolerance Comments: ANY Decongestant-Hyperactive [id number]-[id number] REDUCTASE INHIBIT*08/24/2021 14 - Other: See Comments Comments: Other Reaction(s): Unknown TIZANIDINE HCL 09/30/2023 9 - Itching 14 - Other: See Comments MORPHINE 07/05/2011 16 - Unknown 8 - GI Upset 11 - Vomiting 14 - Other: See Comments Comments: Migraine TRAMADOL 09/05/2013 9 - Itching 16 - Unknown Comments: Tooth sensitivity Only tolerates low dose Only tolerates low dose Date Reviewed: 07/16/2024 Reviewed by: Patsy West, RN - Fully Assessed Reason for Visit: Breast Cancer [519] Primary Visit Diagnosis:Malignant neoplasm of upper-outer quadrant of right breast in female, estrogen receptor positive (HCC) [C50.411, Z17.0] Prescriptions as of 08/14/2024 - predniSONE (DELTASONE) 10 mg tablet Take 10 mg by mouth once daily. - gabapentin (NEURONTIN) 300 mg capsule Take 1 capsule by mouth three times a day. - metFORMIN (GLUCOPHAGE) 500 mg tablet Take 1 tablet by mouth every 12 hours. - ondansetron (ZOFRAN) 8 mg tablet Take 1 tablet by mouth every 8 hours as needed for nausea/vomiting. - dicyclomine (BENTYL) 20 mg tablet q 8 HR. - hyoscyamine sublingual (LEVSIN SL) 0.125 mg DISSOLVE 1 TABLET UNDER THE TONGUE EVERY 6 HOURS NEEDED - ibuprofen (MOTRIN) 600 mg tablet Take 400 mg by mouth at bedtime as needed. - meclizine (ANTIVERT) 25 mg tab TAKE 1-2 TABLETS BY MOUTH FOUR TIMES A DAY NEEDED FOR DIZZINESS - pantoprazole DR (PROTONIX) 40 mg tablet Take 40 mg by mouth once daily. - scopolamine (TRANSDERM-SCOP) patch 1.5 mg/72 hr (delivers 1 mg over 3 days) Apply 1 Patch as directed every 72 hours as needed. - simvastatin (ZOCOR) 10 mg tablet Take 10 mg by mouth daily at bedtime. - triamcinolone acetonide (KENALOG) 0.1 % cream Apply 1 application to affected area once daily. - eletriptan (RELPAX) 40 mg tablet TAKE 1 TABLET BY MOUTH AT ONSET OF MODERATE TO SEVERE MIGRAINE. MAY REPEAT DOSE IN 2 HOURS. MAX OF 2 DOSES IN 24 HOURS, 2 DAYS A WEEK - levothyroxine (SYNTHROID) 50 mcg tablet Take 50 mcg by mouth once daily. - blood sugar diagnostic (LOGIDOC-SolutionsTOUCH VERIO TEST STRIPS) test strip 1 Strip once daily. Problem List As Of Date 07/16/2024 Noted Resolved Paraesophageal hernia [K44.9] 02/26/2021 Hiatal hernia with gastroesophageal reflux [K44*01/22/1996 Diabetes type 2, controlled (HCC) [E11.9] 02/14/2017 Mixed hyperlipidemia [E78.2] 07/05/2011 Essential (primary) hypertension [I10] 04/27/2021 Postural orthostatic tachycardia syndrome [G90.*10/24/2017 Migraine [G43.909] 04/27/2021 Hiatal hernia [K44.9] 04/29/2021 Obesity, Class I, BMI 30-34.9 [E66.811] 04/30/2021 Nausea without vomiting [R11.0] 04/30/2021 Malignant neoplasm of upper-outer quadrant of r*02/21/2023 Malignant neoplasm of central portion of right *04/29/2023 Immunotherapy [Z29.89] 04/29/2023 Thyroiditis [E06.9] 04/29/2023 Blood glucose elevated [R73.9] 04/29/2023 PONV (postoperative nausea and vomiting) [R11.2*10/21/2023 Disposition: Return if symptoms worsen or fail to improve. Follow-up and Disposition History for Encounter Date Provider Department Center 07/16/2024 [id number] JOHN [place] Encounter Status:Closed by ABISAI JOHN on 08/13/24 PROGRESS Observed: 06/07/2024 2:00 PM Status: COMPLETED Source: [facility] Reason for Consultation: Follow-up of vasovagal syncope HPI: Jyoti Thao is a 68 y.o. year old with past medical history of Vasovagal syncope and defecation syncope. She recently completed a course of chemotherapy and radiation therapy for her triple negative breast cancer. She has done well with it and currently is reported to be cancer free.I am extremely pleased to hear this. About twice a year she continues to have severe vasovagal episodes that can be triggered during defecation.She is pretty much learned how to handle these reasonably well And therefore I am not going to make any current changes in our management plan. Will continue to see her on a yearly basis. PMH: Past Medical History: Diagnosis Date Cancer (CMS/HCC) 01/12 Hyperlipidemia Syncope 1961 PSH: No past surgical history on file. SH: Social Determinants of Health Tobacco Use: Medium Risk (06/07/2024) Patient History Smoking Tobacco Use: Former Smokeless Tobacco Use: Never Passive Exposure: Past Alcohol Use: Not At Risk (03/20/2020) [facility] Frequency of Alcohol Consumption: Never Average Number of Drinks: Not on file Frequency of Binge Drinking: Not on file Financial Resource Strain: Not on file Food Insecurity: No Food Insecurity (05/06/2022) Received from [facility], [facility] Hunger Screening Within the past 12 months we worried whether our food would run out before we got money to buy more.: Never True Within the past 12 months the food we bought just didn't last and we didn't have money to get more.: Never True Transportation Needs: Not on file Physical Activity: Not on file Stress: Not on file Social Connections: Not on file Intimate Partner Violence: Unknown (06/07/2024) Humiliation, Afraid, Rape, and Kick questionnaire Fear of Current or Ex-Partner: No Emotionally Abused: Not on file Physically Abused: Not on file Sexually Abused: Not on file Depression: Not at risk (06/07/2024) PHQ-2 PHQ-2 Score: 0 Housing Stability: Not on file Utilities: Not on file Health Literacy: Not on file Meds: Current Outpatient Medications on File Prior to Visit Medication Sig Dispense Refill cyclobenzaprine (Flexeril) 10 mg tablet Take 1 tablet by mouth if needed. diazePAM (Valium) 2 mg tablet diazepam 2 mg tablet as needed eletriptan (Relpax) 40 mg tablet eletriptan 40 mg tablet gabapentin (Neurontin) 300 mg capsule Take 300 mg by mouth 3 times a day. hyoscyamine ER (Levbid) 0.375 mg 12 hr tablet hyoscyamine ER 0.375 mg tablet,extended release,12 hr TAKE 1 TABLET BY MOUTH EVERY DAY levothyroxine (Synthroid, Levoxyl) 50 mcg tablet 1 (one) time each day at the same time. meclizine (Antivert) 25 mg tablet meclizine 25 mg tablet ondansetron ODT (Zofran-ODT) 4 mg disintegrating tablet Take 4 mg by mouth once daily as directed. oxyCODONE-acetaminophen (Percocet) 5-325 mg tablet if needed. pantoprazole (ProtoNix) 40 mg EC tablet Take 40 mg by mouth. predniSONE (Deltasone) 10 mg tablet Take 10 mg by mouth in the morning. scopolamine (Transderm-Scop) 1 mg over 3 days patch 3 day if needed. simvastatin (Zocor) 10 mg tablet Take 10 mg by mouth at bedtime. traMADol (Ultram) 50 mg tablet if needed. triamcinolone (Kenalog) 0.1 % cream if needed. HYDROcodone-acetaminophen (Vicodin) 10-300 mg tablet every 6 (six) hours. metFORMIN (Glucophage) 500 mg tablet Take 500 mg by mouth in the morning and at bedtime. omeprazole (PriLOSEC) [address] capsule Take 40 mg by mouth in the morning and 40 mg in the evening. onabotulinumtoxinA (BOTOX INJ) Botox injection every 3 months for migraines No current facility-administered medications on file prior to visit. Review of Systems Constitutional: Positive for malaise/fatigue and weight loss. Eyes: Positive for blurred vision. Cardiovascular: Positive for chest pain and near-syncope. Endocrine: Positive for heat intolerance. Hematologic/Lymphatic: Bruises/bleeds easily. Musculoskeletal: Positive for falls and muscle weakness. Gastrointestinal: Positive for abdominal pain, nausea and vomiting. Neurological: Positive for dizziness, light-headedness and weakness. Physical Exam: Constitutional General Appearance: well-nourished, well-developed, appears stated age Level of Distress: comfortable Psychiatric Mental Status: alert, normal affect Orientation: oriented to time, place, and person Insight: good judgement Eyes Lids and Conjunctivae: non-injected, no xanthelasma ENMT Ears: no lesions on external ear Nose: no lesions on external nose Oropharynx: no cyanosis, no pallor Neck Neck: supple, trachea midline Carotid Arteries: bilateral normal upstroke, no bruits Jugular Veins: normal jugular venous pressure Thyroid: not enlarged Lungs Respiratory Effort: unlabored Chest Exam: normal curvature, no thoracic deformity Auscultation: clear, no wheezing, no rales, no rhonchi Cardiovascular Rate And Rhythm: regular Heart Sounds: normal S1, normal s2, no gallop Systolic Murmur: not heard Diastolic Murmur: not heard Extremities: no cyanosis, no edema, no peripheral signs of emboli Peripheral Pulses Radial Pulse: normal Abdomen Inspection and Palpation: soft, non distended, no bruit, non tender Musculoskeletal Inspection: no joint swelling Neurologic Gait: normal gait Skin Inspection and Palpation: warm and dry Nails: no clubbing Labs: @LABRESULTS@ EKG: No results found for this or any previous visit (from the past 4464 hour(s)). Echo: No echocardiogram results found for the past 12 months Stress test: Coronary angiogram: @CATH@ Diagnostic Imaging: No images are attached to the encounter. Assessment and Plan: Recurrent vasovagal syncope: Chronic and stable continue present management Metastatic breast cancer: Chronic and stable followed by oncology Diabetes mellitus Jayna Goldman M.D. 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 and Pediatrics Director: Cardiac Electrophysiology Program OFFICE VISIT Observed: 06/07/2024 2:00 PM Status: COMPLETED Source: [facility] [id number] Jyoti Thao 06/1955 F Date Provider Department Center 06/07/2024 [id number]-JAYNA GOLDMAN [facility] CARD [facility] No family history on file Level of Service:18596 CO OFFICE/OUTPATIENT ESTABLISHED MOD MDM 30 MIN Reason for Visit and Comments: Follow-up [208366] CNPN Observed: 06/06/2024 12:00 AM Status: COMPLETED Source: [facility] [place] Telephone (BRCRAV) JYOTI THAO ([id number]) 1955 F Date Time Provider Department 06/06/24 ROSALBA REYNOSO BRCRAV During your visit today, we recorded the following information about you: Carmen Randolph 06/06/2024 11:14 AM Signed Called pt to reschedule Birgit appointment and she stated she was told last visit she could have an order for physical therapy for lipedema and cannot find an order. Could you place order so she can complete it? Georgia Alcaraz PA-C 06/06/2024 12:29 PM Signed Addended by: GEORGIA ALCARAZ on: 06/06/2024 12:29 PM Modules accepted: Orders Jennifer Brasher RN 06/07/2024 9:14 AM Signed Order was emailed to patient per her request Allergies As of Date: 06/06/2024 Noted Allergy Reaction HYDROCODONE 02/10/2018 14 - Other: See Comments 8 - GI Upset Comments: Headaches OXYCODONE 04/18/2018 8 - GI Upset Comments: Can take 1/2 tab, but full tab makes her sick 12 HOUR COLD CAPSULE 11/05/2019 5 - Intolerance ADHESIVE 03/01/2022 14 - Other: See Comments ALLER-CHLOR DECONGESTANT 03/01/2022 16 - Unknown CHLORPHENIRAMINE-PSEUDOEPHED 02/21/2023 16 - Unknown [id number] 09/08/2017 9 - Itching DECONGEST MULTI-ACTION 12/03/2019 [...] severe stimulation Other Reaction(s): Intolerance ANY Decongestant-Hyperactive [id number] 04/02/2019 5 - Intolerance Comments: ANY Decongestant-Hyperactive YUFWSEO-VYF-CDS REDUCTASE INHIBIT*08/24/2021 14 - Other: See Comments Comments: Other Reaction(s): Unknown TIZANIDINE HCL 09/30/2023 9 - Itching 14 - Other: See Comments MORPHINE 07/05/2011 16 - Unknown 8 - GI Upset 11 - Vomiting 14 - Other: See Comments Comments: Migraine TRAMADOL 09/05/2013 9 - Itching 16 - Unknown Comments: Tooth sensitivity Only tolerates low dose Only tolerates low dose Date Reviewed: 05/31/2024 Reviewed by: Divya Davies MA - Fully Assessed 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 - gabapentin (NEURONTIN) 300 mg capsule Take 1 capsule by mouth three times a day. - metFORMIN (GLUCOPHAGE) 500 mg tablet Take 1 tablet by mouth every 12 hours. - ondansetron (ZOFRAN) 8 mg tablet Take 1 tablet by mouth every 8 hours as needed for nausea/vomiting. - dicyclomine (BENTYL) 20 mg tablet q 8 HR. - hyoscyamine sublingual (LEVSIN SL) 0.125 mg DISSOLVE 1 TABLET UNDER THE TONGUE EVERY 6 HOURS NEEDED - ibuprofen (MOTRIN) 600 mg tablet Take 400 mg by mouth at bedtime as needed. - meclizine (ANTIVERT) 25 mg tab TAKE 1-2 TABLETS BY MOUTH FOUR TIMES A DAY NEEDED FOR DIZZINESS - pantoprazole DR (PROTONIX) 40 mg tablet Take 40 mg by mouth once daily. - scopolamine (TRANSDERM-SCOP) patch 1.5 mg/72 hr (delivers 1 mg over 3 days) Apply 1 Patch as directed every 72 hours as needed. - simvastatin (ZOCOR) 10 mg tablet Take 10 mg by mouth daily at bedtime. - triamcinolone acetonide (KENALOG) 0.1 % cream Apply 1 application to affected area once daily. - eletriptan (RELPAX) 40 mg tablet TAKE 1 TABLET BY MOUTH AT ONSET OF MODERATE TO SEVERE MIGRAINE. MAY REPEAT DOSE IN 2 HOURS. MAX OF 2 DOSES IN 24 HOURS, 2 DAYS A WEEK - levothyroxine (SYNTHROID) 50 mcg tablet Take 50 mcg by mouth once daily. - blood sugar diagnostic (ONETOUCH VERIO TEST STRIPS) test strip 1 Strip once daily. Problem List As Of Date 06/06/2024 Noted Resolved Paraesophageal hernia [K44.9] 02/26/2021 Hiatal hernia with gastroesophageal reflux [K44*01/22/1996 Diabetes type 2, controlled (HCC) [E11.9] 02/14/2017 Mixed hyperlipidemia [E78.2] 07/05/2011 Essential (primary) hypertension [I10] 04/27/2021 Postural orthostatic tachycardia syndrome [G90.*10/24/2017 Migraine [G43.909] 04/27/2021 Hiatal hernia [K44.9] 04/29/2021 Obesity, Class I, BMI 30-34.9 [E66.811] 04/30/2021 Nausea without vomiting [R11.0] 04/30/2021 Malignant neoplasm of upper-outer quadrant of r*02/21/2023 Malignant neoplasm of central portion of right *04/29/2023 Immunotherapy [Z29.89] 04/29/2023 Thyroiditis [E06.9] 04/29/2023 Blood glucose elevated [R73.9] 04/29/2023 PONV (postoperative nausea and vomiting) [R11.2*10/21/2023 Encounter Status:Closed by CARMEN RANDOLPH on 06/06/24 CNOVSP Observed: 05/31/2024 3:00 PM Status: COMPLETED Source: [facility] Visit (SP) Office ([place]) JYOTI THAO ([id number]) 1955 F Date Time Provider Department 05/31/24 3:00 PM PAULO SINGH During your visit today, we recorded the following information about you: Temperature Pulse Respiration Blood pressure 97.2 degrees 91/minute 16/minute 108/71 Weight Height 83 kg 1.676 m Paulo Singh MD 06/01/2024 1:00 PM Signed NAME: Jyoti Thao CLINIC NO.: [id number] DATE OF SERVICE: May 31, 2024 (Lenny) Some elements in this clinic note that are critical to medical decision making have been carefully reviewed and included from a prior clinic note dated: March 08, 2024 (Lenny) Referring Provider: Alfa Joaquin Additional Clinicians involved in Jyoti Thao's care: Abisai Chandra DIAGNOSIS: TNBC - right breast ASSESSMENT: 68 year old woman with 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 Following additional imaging, including MRI breast bilateral, CT CAP, echocardiogram she will be ready for initiation of neoadjuvant chemotherapy with immunotherapy. Preceding this the patient desired to have an opinion with one of our [facility] breast surgeons and may need lymph node sampling prior to start of therapy. Given TNBCa stage IIA high risk disease, will proceed with neoadjuvant systemic therapy. Neoadjuvant treatment with Keynote 512 - MRI, 4 cycles keytruda Carboplatin + taxol - MRI - 4 cycles keytruda AC MRI then surgery. Her genetic testing was negative. Appears to have good response with 2 cycles of therapy on examination of right breast. Completed Keytruda in February 2024 and has had right lumpectomy mid-October 2023. Unfortunately, she has an abnormality that will need biopsied in the right breast that is a possible recurrence - which turned out benign. PLAN: RTC in 12 weeks Labs with port same day - HPI: CASE HISTORY: Reverse Chronological Order 05/04/2024 - US Thyroid/Parathyroid: Thyroid nodule(s) present is/are clinically insignificant. No surveillance is advised. 03/14/2024 - Breast, right, at 11:00, 4 cm from the nipple, mass, Q clip, ultrasound-guided core biopsy: Benign breast parenchyma with markedly dense stromal fibrosis. Rare microcalcifications are present within benign breast. 02/21/2024 - Diagnostic Mammogram AND Ultrasound: Mammogram: Finding 1: Irregular mass in the right breast is suspicious of malignancy. An ultrasound guided biopsy is recommended. Findings were discussed with the patient at the time of examination. Finding 2: Calcifications in the left breast are probably benign. Follow-up in 6 months is recommended. Finding 3: Biopsy marker clips in both breasts are benign. BI-RADS Category 4: Suspicious Ultrasound: Finding 1: Ultrasound demonstrates an irregular mass measuring 1.0 x 0.8 x 0.9cm in the right breast at 11 o'clock located 4 cm from the nipple. Internal echotexture is hypoechoic. Color flow imaging demonstrates vascularity is not present. The ipsilateral axilla was surveyed, and no abnormal lymph nodes were visible. 12/20/2023-01/19/2024 - Radiation to right breast 11/02/2023 - Right breast lumpectomy: A. Right axillary sentinel lymph node, excision: - One lymph node, negative for carcinoma (0/1). B. Right breast, lumpectomy: - Residual invasive ductal carcinoma with treatment effect, see comment and synoptic report. - Prior biopsy site, biopsy clip, and Marianela shipping processor device. C, D, E, F, G, H. Right breast, multiple margins, excision: - The final inked margin is negative for carcinoma. ER-, CO-, HER2- 10/27/2023-03/08/2024 - Keytruda 400mg q 6 weeks 10/26/2023 - Infrared activated electromagnetic reflector device placement for the mass in the right breast at 12 o'clock middle depth 5 cm from the nipple 10/12/2023 - MRI Breast: Continued interval treatment response to neoadjuvant systemic therapy of the known biopsy-proven malignancy in the 12:00 right breast, now measuring 8 mm (with previous serial measurements as above). No suspicious areas of enhancement in the left breast. No lymphadenopathy. Mild motion limitations. 09/26/2023 - US Extremity Nonvascular LT: 2 indeterminate hyperechogenic left axillary lesions measuring 0.7 and 0.6 cm. In light of the patient's invasive ductal carcinoma, metastatic disease to lymph nodes should be considered. 07/07/2023-09/15/2023 - 4 cycles A/C + Keytruda q 21 days 07/01/2023 - MRI Breast: BI-RADS 6 - Known Malignancy. Right Breast: 1.5 cm irregular enhancing mass in the right breast at 12:00 anterior depth corresponds with patient's known site of malignancy. This previously measured 2.2 cm in maximum dimension. 03/17/2023-06/10/2023 - 4 cycles days 1, 8, 15 q 21 days Carboplatin / Taxol / Keytruda 03/15/2023 - MRI Breast: 2.2 cm spiculated enhancing mass in the 12:00 anterior depth-middle depth right breast at site of biopsy-proven malignancy. No other definite suspicious areas of enhancement in either breast. No lymphadenopathy. 03/10/2023 - USG breast bx 2nd right breast lesion: - Negative for additional malignancy 03/09/2023 - CT CAP: Negative for metastatic disease. Hepatic steatosis. 01/20/2023 - Right breast mass biopsy: - Invasive ductal carcinoma grade 3 ER 0, CO 0 HER2 1+ by IHC negative. 01/20/2023 - Post-biopsy diagnostic mammography metallic marker placed in targeted location within the upper outer quadrant right breast. 01/17/2023 - Diagnostic Mammography: Right breast category 4 suspicious for malignancy US demonstrates bilobed hypoechoic mass with acoustic shadowing smaller component measuring 5.9 mm connected to a larger deeper 8.3 mm lesion with a connecting stalk measuring 2.3 mm. 12/2022 - Mid December felt a lump in her right breast 07/2022 - Normal mammogram Updated Visit, May 31, 2024: Jyoti Hdz returns with her , Alex. She had a biopsy of the right breast in 02/2024 - results benign. Her annual ultrasound of the thyroid confirmed clinically insignificant nodules. She complains of decreased stamina and bilateral foot neuropathy - treats with gabapentin 300mg TID. Will continue to follow up q 12 weeks. Chaperoned Breast Exam noted below. Updated Visit, March 08, 2024: Jyoti Hdz returns for her final Keytruda infusion. She had a mammogram and ultrasound on 02/20, an irregular mass that is suspicious for malignancy was seen in the right breast. She has a biopsy scheduled for next week. She reports she is still fatigued due to radiation. She had a syncopal episode recently. Updated Visit, January 26, 2024: Jyoti Hdz returns today for Keytruda. She completed about 4 weeks of radiation to the right breast. She endorses expected skin changes, although says it is improving. She is also experiencing fatigue. She also mentions she is overdue for an annual thyroid ultrasound, at [facility], to monitor nodules - will order at next visit. Deferred breast exam as Dr. John had recently examined her. Updated Visit, November 18, 2023: Had her right breast surgery and did very well. Pathology with responsive tumor and LN negative. TNBC. Some neuropathy continues. Breast is hard and had some post-op cellulitis that has cleared. Updated Visit, October 27, 2023: Jyoti Hdz returns today with Alex. MRI breast shows continued response to treatment. She developed pustules w/ itching on her arms, chest, AND legs and tingling/burning in her lips. She wonders if this was an allergic reaction so has discontinued some of her medications. She is wearing a cervical collar due to a pinched nerve in her neck. She complains of severe pain and occasional dizziness. She is unable to have an MRI for her neck since she cannot lay on her chest due to her upcoming lumpectomy. Updated Visit, September 08, 2023: Severe cold and sore throat last week causing her to cancel US. Alex called me and I had recommended ER for severe teeth and throat pain. She ended up not going. Continues to have numerous complaints of body aches, anxiety etc. But no definitive illness. Symptoms have resolved, but she would like another week to finish her recovery. Chaperoned Breast Exam noted below. Updated Visit, August 18, 2023: Jyoti Thao returns for follow-up and continued treatment. Overall, she is tolerating treatment well. She has been experiencing some tooth sensitivity. She has been using a TENS unit for her foot neuropathy. She denies any fevers, chills, night sweats or signs/symptoms of infection. No bleeding or abnormal bruising. She wishes to proceed with treatment as planned. Updated Visit, July 28, 2023: Jyoti hTao returns for follow-up and continued treatment. Overall, she is tolerating treatment well. She denies cough, shortness of breath and other pulmonary complaints. She denies any skin rashes. 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 She complains of feeling tired with treatment. She denies fevers, chills, night sweats and signs/symptoms of infection. No bleeding or abnormal bruising. Today she expresses some concerns about having her teeth cleaned. Updated Visit, July 07, 2023: Jyoti Hdz returns today with Alex. She has had a cold for a couple weeks, is finally now getting over it. She notes she will start wearing a mask when she goes out. Recent MRI shows response to treatment. Her fingernails and toenails are turning black - side effect of chemo. Also reports neuropathy in her feet and fingertips. Proceeding with C5 today. Chaperoned Breast Exam noted below. Updated Visit, May 27, 2023: Jyoti Hdz returns with Alex for follow up and to begin C4 of her treatment. She reports that the hydration has been helping. I encouraged her not to hesitate to reach out if she feels she needs more fluids. We reviewed her labs, which show decreases in blood counts so she is more anemic today. Her chemistries look great. She has not done a self-breast exam since I last saw her, we will conduct another prior to starting Adriamycin. I also will order a breast MRI. She will need education for the new regimen. She reports the only thing bothering her right now is some mild neuropathy in her toes, and some random brief shooting pains in her legs and feet. Her BGs have been running on average in the 150s-160s, with some days in the 130s. We briefly discussed possible timeline for finishing out her treatment course and what she will decide for her surgery. Updated Visit, April 29, 2023: Jyoti Hdz returns today with Alex for follow up. She is having a [...] a lot of fluids. Has seen the operation research analyst. Even though she does not necessarily feel [...] we should hold treatment for a week. Chaperoned Breast Exam noted below. Updated Visit, April 08, 2023: Jyoti Hdz returns today for follow up accompanied by her Alex. She has lost the rest of her [...] her that I see early response already. Chaperoned Breast Exam noted below. Updated Visit, April 04, 2023: Jyoti Thao received cycle 1 day 1 carboplatin, Taxol [...] Updated Visit, March 17, 2023: Here with Alex. Is Tu Cruz's mother. Ready for neoadjuvant treatment given high risk disease. Reviewed MRI, biopsy of second spot was negative. Thoroughly reviewed patients treatment plan. Initial Visit, February 21, 2023: Jyoti Thao presents today Hematology and Oncology evaluation. She is a 67 year old female who has a history of POTS syndrome and is adopted who is [employer] genetic testing is negative. She gives a story of having a normal mammogram in July 2022 and subsequently felt a lump in mid December 2022. She underwent imaging in [facility] and then had a biopsy that [...] this interferes with her plans to buy [employer] in [place] [facility] and move there this year with her Tim. Despite high risk disease and the need for a protracted course of neoadjuvant chemotherapy according to keynote 512, I think she will be able to get to the [employer] multiple times. I reassured her that she appears to have curable disease and indeed she felt better. Although her work-up was initiated locally, she would like to transition her care to [facility] and I will make appropriate referrals. M grandmother Lucio's Mother stroke Birthfather?? Heart attack in 70s Chaperoned Breast Exam noted below. - REVIEW OF SYSTEMS Per HPI and otherwise negative by full review of organ systems. - ECOG PERFORMANCE STATUS: 0 PHYSICAL EXAMINATION: Vitals: BP 108/71 Pulse 91 Temp (Src) 97.2 (Temporal) Resp 16 Ht 5' 5.984 (1.68m) Wt 182 lb 15.7 oz (83.0kg) SpO2 98% BMI 29.55 kg/(m2). Body surface area is 1.97 meters squared. Exam limited to gross visualization where appropriate. Gen.: This is an age-appropriate patient in no acute distress. Head: Appears atraumatic with no visible lesions. Eyes: Pupils equally round and reactive to light, extraocular muscles are intact. Neck: Supple. Respiratory: Appears to be respiring comfortably. Neurologic: Nonfocal to gross visualization. Alert and oriented ?3. Psychiatric: No evidence of inappropriate depression but remains highly anxious. Skin: Visible areas of skin without lesions, wounds or petechiae. Erythematous blanching rash on her forearms and around the port on her chest, will monitor. Chaperoned Breast Exam May 31, 2024 (Sara Clinton) : Right breast shows radiation changes and slight lymphedema , otherwise a normal exam, Left breast is normal to palpation. Socorro exam is negative bilaterally. The sensitive examination was discussed with the Patient or Patient's Authorized Operating Systems Specialist. As applicable, any other physician, advance practice provider, medical student, or other health professional student that will be observing or involved in the sensitive examination for educational or training purposes was discussed with the Patient or Authorized Operating Systems Specialist. The Patient or Authorized Operating Systems Specialist has agreed to proceed with the sensitive examination. (Sensitive examination includes inspection and/or palpation of the breasts, pelvis, prostate and anorectal regions) Prior exams for reference: Chaperoned Breast Exam September 08, 2023 (Tesha Evangelista) : Right breast is tender but no discreet masses, Left breast is mildly tender and normal. Socorro exam is negative bilaterally. Chaperoned Breast Exam July 07, 2023 (Sara Clinton) : Right breast is tender but no discreet masses, Left breast is mildly tender and normal. Socorro exam is negative bilaterally. Chaperoned Breast Exam April 29, 2023 (Sara Clinton) : Right breast shows continued improvement, now lesion measure 0.5 cm, Left breast was not examined. Chaperoned Breast Exam April 08, 2023 (Evan Lambert): Right breast mass at 12 o' clock just above the NAC definitely feels smaller (approx. 1.5 cm), Left breast is normal. Chaperoned Breast Exam February 21, 2023 (Evan Lambert): Fairly tender right breast with a 3 cm dense nodule just above the areola in the 11 o'clock position approximately 1 cm from the nipple. She has a secondary small nodule adjacent and more medial but otherwise breast is largely benign and actually socorro examination is negative. - ALLERGIES: ALLERGIES Allergen Reactions Hydrocodone Other: See Comments, GI Upset Headaches Oxycodone GI Upset Can take 1/2 tab, but full tab makes her sick 12 Hour Cold Capsule Intolerance Adhesive Other: See Comments Aller-Chlor Deconge* Unknown Chlorpheniramine-Ps* Unknown Ill-Snrmewysr-Ofwge* Itching Decongest Multi-Act* Other: See Comments Diazepam Other: See Comments sick-headache Diphenhydramine Intolerance Levofloxacin Intolerance Nalbuphine Rash Progesterone Other: See Comments, GI Upset Speeds up metabolism Weight gain and voice hoarse Promethazine Unknown Pseudoephedrine Other: See Comments Other Reaction(s): Hyperactive, severe stimulation Other Reaction(s): Intolerance ANY Decongestant-Hyperactive Pseudoephedrine-Dm-* Intolerance ANY Decongestant-Hyperactive Hmjhhly-Dyy-Uxu Red* Other: See Comments Other Reaction(s): Unknown Tizanidine Hcl Itching, Other: See Comments Morphine Unknown, GI Upset, Vomiting, Other: See Comments Migraine Tramadol Itching, Unknown Tooth sensitivity Only tolerates low dose Only tolerates low dose MEDICATIONS: predniSONE (DELTASONE) 10 mg tablet Take 10 mg by mouth once daily. gabapentin (NEURONTIN) 300 mg capsule Take 1 capsule by mouth three times a day. ondansetron (ZOFRAN) 8 mg tablet Take 1 tablet by mouth every 8 hours as needed for nausea/vomiting. dicyclomine (BENTYL) 20 mg tablet q 8 HR. hyoscyamine sublingual (LEVSIN SL) 0.125 mg DISSOLVE 1 TABLET UNDER THE TONGUE EVERY 6 HOURS NEEDED ibuprofen (MOTRIN) 600 mg tablet Take 400 mg by mouth at bedtime as needed. meclizine (ANTIVERT) 25 mg tab TAKE 1-2 TABLETS BY MOUTH FOUR TIMES A DAY NEEDED FOR DIZZINESS pantoprazole DR (PROTONIX) 40 mg tablet Take 40 mg by mouth once daily. scopolamine (TRANSDERM-SCOP) patch 1.5 mg/72 hr (delivers 1 mg over 3 days) Apply 1 Patch as directed every 72 hours as needed. simvastatin (ZOCOR) 10 mg tablet Take 10 mg by mouth daily at bedtime. triamcinolone acetonide (KENALOG) 0.1 % cream Apply 1 application to affected area once daily. eletriptan (RELPAX) 40 mg tablet TAKE 1 TABLET BY MOUTH AT ONSET OF MODERATE TO SEVERE MIGRAINE. MAY REPEAT DOSE IN 2 HOURS. MAX OF 2 DOSES IN 24 HOURS, 2 DAYS A WEEK levothyroxine (SYNTHROID) 50 mcg tablet Take 50 mcg by mouth once daily. blood sugar diagnostic (LOGIDOC-SolutionsTOUCH VERIO TEST STRIPS) test strip 1 Strip once daily. metFORMIN (GLUCOPHAGE) 500 mg tablet Take 1 tablet by mouth every 12 hours. (Patient not taking: Reported on 05/31/2024) - LABORATORY VALUES: WBC (k/uL) Date Value 05/31/2024 12.44 (H) RBC (m/uL) Date Value 05/31/2024 4.03 Hemoglobin (g/dL) Date Value 05/31/2024 12.2 Hematocrit (%) Date Value 05/31/2024 35.8 (L) MCV (fL) Date Value 05/31/2024 88.8 MCH (pg) Date Value 05/31/2024 30.3 MCHC (g/dL) Date Value 05/31/2024 34.1 RDW-CV (%) Date Value 05/31/2024 13.2 Platelet Count (k/uL) Date Value 05/31/2024 283 MPV (fL) Date Value 05/31/2024 9.2 Glucose (mg/dL) Date Value 05/31/2024 240 (H) BUN (mg/dL) Date Value 05/31/2024 20 Creatinine (mg/dL) Date Value 05/31/2024 0.92 Sodium (mmol/L) Date Value 05/31/2024 132 (L) Potassium (mmol/L) Date Value 05/31/2024 4.0 Chloride (mmol/L) Date Value 05/31/2024 95 (L) CO2 (mmol/L) Date Value 05/31/2024 26 Protein, Total (g/dL) Date Value 05/31/2024 6.4 Albumin (g/dL) Date Value 05/31/2024 3.9 Calcium, Total (mg/dL) Date Value 05/31/2024 9.1 Alkaline Phosphatase (U/L) Date Value 05/31/2024 120 Bilirubin, Total (mg/dL) Date Value 05/31/2024 0.3 AST (U/L) Date Value 05/31/2024 10 (L) ALT (U/L) Date Value 05/31/2024 16 - DIAGNOSIS: (C50.411, Z17.0) Malignant neoplasm of upper-outer quadrant of right breast in female, estrogen receptor positive (HCC) (primary encounter diagnosis) Plan: CA 15-3 BLD, CA 27.29 BLOOD, COMPREHENSIVE METABOLIC PANEL, COMPLETE BLOOD COUNT AND DIFFERENTIAL, HEMOGLOBIN A1C, CORTISOL, SERUM, THYROID STIMULATING HORMONE (E04.1) Thyroid nodule Plan: CA 15-3 BLD, CA 27.29 BLOOD, COMPREHENSIVE METABOLIC PANEL, COMPLETE BLOOD COUNT AND DIFFERENTIAL, HEMOGLOBIN A1C, CORTISOL, SERUM, THYROID STIMULATING HORMONE (Z29.89) Immunotherapy Plan: CA 15-3 BLD, CA 27.29 BLOOD, COMPREHENSIVE METABOLIC PANEL, COMPLETE BLOOD COUNT AND DIFFERENTIAL, HEMOGLOBIN A1C, CORTISOL, SERUM, THYROID STIMULATING HORMONE (R79.9) Abnormal blood chemistry Plan: CA 15-3 BLD, CA 27.29 BLOOD, COMPREHENSIVE METABOLIC PANEL, COMPLETE BLOOD COUNT AND DIFFERENTIAL, HEMOGLOBIN A1C, CORTISOL, SERUM, THYROID STIMULATING HORMONE PAST MEDICAL HISTORY Diagnosis Date Anemia Arthritis Breast cancer (HCC) Diabetes (HCC) Diverticulitis of colon Salty Bolton virus infection Essential (primary) hypertension Fibrocystic breast GERD (gastroesophageal reflux disease) Hyperlipidemia Hypothyroidism IBS (irritable bowel syndrome) Malignant neoplasm of upper-outer quadrant of right breast in female, estrogen receptor positive (HCC) 02/21/2023 Migraines Nausea without vomiting 04/30/2021 PONV (postoperative nausea and vomiting) 10/21/2023 POTS (postural orthostatic tachycardia syndrome) Small bowel [...] Discectomy PAST SURGICAL HISTORY OF Mass excision right axilla (benign) PAST SURGICAL HISTORY OF Small bowel resection SINUS SURGERY HX SMALL INTESTINE SURGERY HX TONSILLECTOMY HX UNLISTED STOMACH SURGERY Removal stomach polyps VAGINAL HYSTERECTOMY with appendectomy, Meckel's diverticulectomy Social History Tobacco Use Smoking status: Former Current packs/day: 0.00 Types: Cigarettes Quit date: 2016 Years since quittin.0 Passive exposure: Past Smokeless tobacco: Never Tobacco comments: quit smoking in 2014, on and off, 1/3 ppd at most Vaping Use Vaping status: Never Used Substance Use Topics Alcohol use: Not Currently Comment: rarely Drug use: Never FAMILY HISTORY Adopted: Yes Problem Relation Age of Onset Stroke Mother other (addisons) Maternal Grandmother I spent a total of 30 minutes on the date of service which included preparing to see the patient, [id number] patient care, completing clinical documentation, performing a medically appropriate examination, counseling and educating the patient/family/caregiver, ordering medications, tests, or procedures, independently interpreting results (not separately reported), communicating results to the patient/family/caregiver, and care coordination (not separately reported). Paulo Singh MD, CPE Hematology and Oncology Services Provided at: [facility] [place], [place], [place] Scribe Attestation: This note was scribed by Renu Sidhu on May 31, 2024 under the direction and supervision of Dr. Paulo Singh. I attest that all of the information documented is correct to the best of my knowledge. Provider Attestation: I, Paulo Singh MD, attest that all information documented by the above scribe is correct, and was supervised by me and under my direction. CC: Dr. Zeke Joaquin [address] [facility] [address] [facility] [id number] [address] Makeda Osei [address] [facility] [place] [address] 05/31/2024 3:10 PM Signed RTC in 12 weeks Labs with port same day Allergies As of Date: 05/31/2024 Noted Allergy Reaction HYDROCODONE 02/10/2018 14 - Other: See Comments 8 - GI Upset Comments: Headaches OXYCODONE 04/18/2018 8 - GI Upset Comments: Can take 1/2 tab, but full tab makes her sick 12 HOUR COLD CAPSULE 11/05/2019 5 - Intolerance ADHESIVE 03/01/2022 14 - Other: See Comments ALLER-CHLOR DECONGESTANT 03/01/2022 16 - Unknown CHLORPHENIRAMINE-PSEUDOEPHED 02/21/2023 16 - Unknown [id number] 09/08/2017 9 - Itching DECONGEST MULTI-ACTION 12/03/2019 [...] severe stimulation Other Reaction(s): Intolerance ANY Decongestant-Hyperactive [id number] 04/02/2019 5 - Intolerance Comments: ANY Decongestant-Hyperactive [id number] REDUCTASE INHIBIT*08/24/2021 14 - Other: See Comments Comments: Other Reaction(s): Unknown TIZANIDINE HCL 09/30/2023 9 - Itching 14 - Other: See Comments MORPHINE 07/05/2011 16 - Unknown 8 - GI Upset 11 - Vomiting 14 - Other: See Comments Comments: Migraine TRAMADOL 09/05/2013 9 - Itching 16 - Unknown Comments: Tooth sensitivity Only tolerates low dose Only tolerates low dose Date Reviewed: 05/31/2024 Reviewed by: Divya Davies MA - Fully Assessed Reason for Visit: Breast Cancer [519] Primary Visit Diagnosis:Malignant neoplasm of upper-outer quadrant of right breast in female, estrogen receptor positive (HCC) [C50.411, Z17.0] Other Visit Diagnoses:Thyroid nodule [E04.1] Immunotherapy [Z29.89] Abnormal blood chemistry [R79.9] Order(s):CA 15-3 BLD [[id number]] Order #: [id number] FUTURE CA 27.29 BLOOD [[id number]] Order #: [id number] FUTURE COMPREHENSIVE METABOLIC PANEL [SQCMP] Order #: [id number] FUTURE COMPLETE BLOOD COUNT AND DIFFERENTIAL [SQCBCDIF] Order #: [id number] FUTURE HEMOGLOBIN A1C [[id number]] Order #: [id number] FUTURE CORTISOL, SERUM [SQCOR] Order #: [id number] FUTURE THYROID STIMULATING HORMONE [SQTSH] Order #: [id number] FUTURE Level of Service: OFFICE/OUTPATIENT ESTABLISHED MOD MDM 30 MIN [99510] Additional E/M codes: VISIT CPLX INHERENT EANDM ASSOC WITH MED * Disposition: Return in about 12 weeks (around 08/23/2024). Follow-up and Disposition History for Encounter Date Provider Department Center 05/31/2024 [id number] SINGH Prescriptions as of 06/01/2024 - predniSONE (DELTASONE) 10 mg tablet Take 10 mg by mouth once daily. - gabapentin (NEURONTIN) 300 mg capsule Take 1 capsule by mouth three times a day. - metFORMIN (GLUCOPHAGE) 500 mg tablet Take 1 tablet by mouth every 12 hours. - ondansetron (ZOFRAN) 8 mg tablet Take 1 tablet by mouth every 8 hours as needed for nausea/vomiting. - dicyclomine (BENTYL) 20 mg tablet q 8 HR. - hyoscyamine sublingual (LEVSIN SL) 0.125 mg DISSOLVE 1 TABLET UNDER THE TONGUE EVERY 6 HOURS NEEDED - ibuprofen (MOTRIN) 600 mg tablet Take 400 mg by mouth at bedtime as needed. - meclizine (ANTIVERT) 25 mg tab TAKE 1-2 TABLETS BY MOUTH FOUR TIMES A DAY NEEDED FOR DIZZINESS - pantoprazole DR (PROTONIX) 40 mg tablet Take 40 mg by mouth once daily. - scopolamine (TRANSDERM-SCOP) patch 1.5 mg/72 hr (delivers 1 mg over 3 days) Apply 1 Patch as directed every 72 hours as needed. - simvastatin (ZOCOR) 10 mg tablet Take 10 mg by mouth daily at bedtime. - triamcinolone acetonide (KENALOG) 0.1 % cream Apply 1 application to affected area once daily. - eletriptan (RELPAX) 40 mg tablet TAKE 1 TABLET BY MOUTH AT ONSET OF MODERATE TO SEVERE MIGRAINE. MAY REPEAT DOSE IN 2 HOURS. MAX OF 2 DOSES IN 24 HOURS, 2 DAYS A WEEK - levothyroxine (SYNTHROID) 50 mcg tablet Take 50 mcg by mouth once daily. - blood sugar diagnostic (ONETOUCH VERIO TEST STRIPS) test strip 1 Strip once daily. 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9] 04/29/2023 Blood glucose elevated [R73.9] 04/29/2023 PONV (postoperative nausea and vomiting) [R11.2*10/21/2023 Other instructions from your clinician: RTC in 12 weeks Labs with port same day Encounter Status:Closed by PAULO SINGH on 06/01/24 PROGRESS Observed: 05/31/2024 3:00 PM Status: COMPLETED Source: [facility] HNO ID: [id number] Author: PAULO SINGH MD Service: ? 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 Following additional imaging, including MRI breast bilateral, CT CAP, echocardiogram she will be ready for initiation of neoadjuvant chemotherapy with immunotherapy. Preceding this the patient desired to have an opinion with one of our [facility] breast surgeons and may need lymph node sampling prior to start of therapy. Given TNBCa stage IIA high risk disease, will proceed with neoadjuvant systemic therapy. Neoadjuvant treatment with Keynote 512 - MRI, 4 cycles keytruda Carboplatin + taxol - MRI - 4 cycles keytruda AC MRI then surgery. Her genetic testing was negative. Appears to have good response with 2 cycles of therapy on examination of right breast. Completed Keytruda in February 2024 and has had right lumpectomy mid-October 2023. Unfortunately, she has an abnormality that will need biopsied in the right breast that is a possible recurrence - which turned out benign. PLAN: RTC in 12 weeks Labs with port same day HPI: CASE HISTORY: Reverse Chronological Order 05/04/2024 - US Thyroid/Parathyroid: Thyroid nodule(s) present is/are clinically insignificant. No surveillance is advised. 03/14/2024 - Breast, right, at 11:00, 4 cm from the nipple, mass, Q clip, ultrasound-guided core biopsy: Benign breast parenchyma with markedly dense stromal fibrosis. Rare microcalcifications are present within benign breast. 02/21/2024 - Diagnostic Mammogram AND Ultrasound: Mammogram: Finding 1: Irregular mass in the right breast is suspicious of malignancy. An ultrasound guided biopsy is recommended. Findings were discussed with the patient at the time of examination. Finding 2: Calcifications in the left breast are probably benign. Follow-up in 6 months is recommended. Finding 3: Biopsy marker clips in both breasts are benign. BI-RADS Category 4: Suspicious Ultrasound: Finding 1: Ultrasound demonstrates an irregular mass measuring 1.0 x 0.8 x 0.9cm in the right breast at 11 o'clock located 4 cm from the nipple. Internal echotexture is hypoechoic. Color flow imaging demonstrates vascularity is not present. The ipsilateral axilla was surveyed, and no abnormal lymph nodes were visible. 12/20/2023-01/19/2024 - Radiation to right breast 11/02/2023 - Right breast lumpectomy: A. Right axillary sentinel lymph node, excision: - One lymph node, negative for carcinoma (0/1). B. Right breast, lumpectomy: - Residual invasive ductal carcinoma with treatment effect, see comment and synoptic report. - Prior biopsy site, biopsy clip, and Marianela shipping processor device. C, D, E, F, G, H. Right breast, multiple margins, excision: - The final inked margin is negative for carcinoma. ER-, CO-, HER2- 10/27/2023-03/08/2024 - Keytruda 400mg q 6 weeks 10/26/2023 - Infrared activated electromagnetic reflector device placement for the mass in the right breast at 12 o'clock middle depth 5 cm from the nipple 10/12/2023 - MRI Breast: Continued interval treatment response to neoadjuvant systemic therapy of the known biopsy-proven malignancy in the 12:00 right breast, now measuring 8 mm (with previous serial measurements as above). No suspicious areas of enhancement in the left breast. No lymphadenopathy. Mild motion limitations. 09/26/2023 - US Extremity Nonvascular LT: 2 indeterminate hyperechogenic left axillary lesions measuring 0.7 and 0.6 cm. In light of the patient's invasive ductal carcinoma, metastatic disease to lymph nodes should be considered. 07/07/2023-09/15/2023 - 4 cycles A/C + Keytruda q 21 days 07/01/2023 - MRI Breast: BI-RADS 6 - Known Malignancy. Right Breast: 1.5 cm irregular enhancing mass in the right breast at 12:00 anterior depth corresponds with patient's known site of malignancy. This previously measured 2.2 cm in maximum dimension. 03/17/2023-06/10/2023 - 4 cycles days 1, 8, 15 q 21 days Carboplatin / Taxol / Keytruda 03/15/2023 - MRI Breast: 2.2 cm spiculated enhancing mass in the 12:00 anterior depth-middle depth right breast at site of biopsy-proven malignancy. No other definite suspicious areas of enhancement in either breast. No lymphadenopathy. 03/10/2023 - USG breast bx 2nd right breast lesion: - Negative for additional malignancy 03/09/2023 - CT CAP: Negative for metastatic disease. Hepatic steatosis. 01/20/2023 - Right breast mass biopsy: - Invasive ductal carcinoma grade 3 ER 0, CO 0 HER2 1+ by IHC negative. 01/20/2023 - Post-biopsy diagnostic mammography metallic marker placed in targeted location within the upper outer quadrant right breast. 01/17/2023 - Diagnostic Mammography: Right breast category 4 suspicious for malignancy US demonstrates bilobed hypoechoic mass with acoustic shadowing smaller component measuring 5.9 mm connected to a larger deeper 8.3 mm lesion with a connecting stalk measuring 2.3 mm. 12/2022 - Mid December felt a lump in her right breast 07/2022 - Normal mammogram Updated Visit, May 31, 2024: Jyoti Hdz returns with her , Alex. She had a biopsy of the right breast in 02/2024 - results benign. Her annual ultrasound of the thyroid confirmed clinically insignificant nodules. She complains of decreased stamina and bilateral foot neuropathy - treats with gabapentin 300mg TID. Will continue to follow up q 12 weeks. Chaperoned Breast Exam noted below. Updated Visit, March 08, 2024: Jyoti Hdz returns for her final Keytruda infusion. She had a mammogram and ultrasound on 02/20, an irregular mass that is suspicious for malignancy was seen in the right breast. She has a biopsy scheduled for next week. She reports she is still fatigued due to radiation. She had a syncopal episode recently. Updated Visit, January 26, 2024: Jyoti Hdz returns today for Keytruda. She completed about 4 weeks of radiation to the right breast. She endorses expected skin changes, although says it is improving. She is also experiencing fatigue. She also mentions she is overdue for an annual thyroid ultrasound, at [facility], to monitor nodules - will order at next visit. Deferred breast exam as Dr. John had recently examined her. Updated Visit, November 18, 2023: Had her right breast surgery and did very well. Pathology with responsive tumor and LN negative. TNBC. Some neuropathy continues. Breast is hard and had some post-op cellulitis that has cleared. Updated Visit, October 27, 2023: Jyoti Hdz returns today with lAex. MRI breast shows continued response to treatment. She developed pustules w/ itching on her arms, chest, AND legs and tingling/burning in her lips. She wonders if this was an allergic reaction so has discontinued some of her medications. She is wearing a cervical collar due to a pinched nerve in her neck. She complains of severe pain and occasional dizziness. She is unable to have an MRI for her neck since she cannot lay on her chest due to her upcoming lumpectomy. Updated Visit, September 08, 2023: Severe cold and sore throat last week causing her to cancel US. Alex called me and I had recommended ER for severe teeth and throat pain. She ended up not going. Continues to have numerous complaints of body aches, anxiety etc. But no definitive illness. Symptoms have resolved, but she would like another week to finish her recovery. Chaperoned Breast Exam noted below. Updated Visit, August 18, 2023: Jyoti Thao returns for follow-up and continued treatment. Overall, she is tolerating treatment well. She has been experiencing some tooth sensitivity. She has been using a TENS unit for her foot neuropathy. She denies any fevers, chills, night sweats or signs/symptoms of infection. No bleeding or abnormal bruising. She wishes to proceed with treatment as planned. Updated Visit, July 28, 2023: Jyoti Thao returns for follow-up and continued treatment. Overall, she is tolerating treatment well. She denies cough, shortness of breath and other pulmonary complaints. She denies any skin rashes. 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 She complains of feeling tired with treatment. She denies fevers, chills, night sweats and signs/symptoms of infection. No bleeding or abnormal bruising. Today she expresses some concerns about having her teeth cleaned. Updated Visit, July 07, 2023: Jyoti Hdz returns today with Alex. She has had a cold for a couple weeks, is finally now getting over it. She notes she will start wearing a mask when she goes out. Recent MRI shows response to treatment. Her fingernails and toenails are turning black - side effect of chemo. Also reports neuropathy in her feet and fingertips. Proceeding with C5 today. Chaperoned Breast Exam noted below. Updated Visit, May 27, 2023: Jyoti Hdz returns with Alex for follow up and to begin C4 of her treatment. She reports that the hydration has been helping. I encouraged her not to hesitate to reach out if she feels she needs more fluids. We reviewed her labs, which show decreases in blood counts so she is more anemic today. Her chemistries look great. She has not done a self-breast exam since I last saw her, we will conduct another prior to starting Adriamycin. I also will order a breast MRI. She will need education for the new regimen. She reports the only thing bothering her right now is some mild neuropathy in her toes, and some random brief shooting pains in her legs and feet. Her BGs have been running on average in the 150s-160s, with some days in the 130s. We briefly discussed possible timeline for finishing out her treatment course and what she will decide for her surgery. Updated Visit, April 29, 2023: Jyoti Hdz returns today with Alex for follow up. She is having a [...] a lot of fluids. Has seen the operation research analyst. Even though she does not necessarily feel nauseous, her stomach pain may be a different manifestation of nausea, so she should consider taking her antiemetic anyway when she needs to eat. She is also having bowel troubles with using the bathroom, she is having frequent diarrhea. Tried Imodium but this madeher very constipated for several days and she [...] we should hold treatment for a week. Chaperoned Breast Exam noted below. Updated Visit, April 08, 2023: Jyoti Hdz returns today for follow up accompanied by her Alex. She has lost the rest of her [...] her that I see early response already. Chaperoned Breast Exam noted below. Updated Visit, April 04, 2023: Jyoti Thao received cycle 1 day 1 carboplatin, Taxol [...] Updated Visit, March 17, 2023: Here with Alex. Is Tu Cruz's mother. Ready for neoadjuvant treatment given high risk disease. Reviewed MRI, biopsy of second spot was negative. Thoroughly reviewed patients treatment plan. Initial Visit, February 21, 2023: Jyoti Thao presents today Hematology and Oncology evaluation. She is a 67 year old female who has a history of POTS syndrome and is adopted who is [employer] genetic testing is negative. She gives a story of having a normal mammogram in July 2022 and subsequently felt a lump in mid December 2022. She underwent imaging in [facility] and then had a biopsy that [...] this interferes with her plans to buy [employer] in [place] and move there this year with her Tim. Despite high risk disease and the need for a protracted course of neoadjuvant chemotherapy according to keynote 512, I think she [place] the cabin [place]. I reassured her that she appears to have curable disease and indeed she felt better. Although her work-up was initiated locally, she would like to transition her care to [facility] and I will make appropriate referrals. M grandmother Lucio's Mother stroke Birthfather?? Heart attack in 70s Chaperoned Breast Exam noted below. REVIEW OF SYSTEMS Per HPI and otherwise negative by full review of organ systems. ECOG PERFORMANCE STATUS: 0 PHYSICAL EXAMINATION: Vitals: BP 108/71 Pulse 91 Temp (Src) 97.2 (Temporal) Resp 16 Ht 5' 5.984 (1.68m) Wt 182 lb 15.7 oz (83.0kg) SpO2 98% BMI 29.55 kg/(m2). Body surface area is 1.97 meters squared. Exam limited to gross visualization where appropriate. Gen.: This is an age-appropriate patient in no acute distress. Head: Appears atraumatic with no visible lesions. Eyes: Pupils equally round and reactive to light, extraocular muscles are intact. Neck: Supple. Respiratory: Appears to be respiring comfortably. Neurologic: Nonfocal to gross visualization. Alert and oriented ?3. Psychiatric: No evidence of inappropriate depression but remains highly anxious. Skin: Visible areas of skin without lesions, wounds or petechiae. Erythematous blanching rash on her forearms and around the port on her chest, will monitor. Chaperoned Breast Exam May 31, 2024 (Sara Clinton) : Right breast shows radiation changes and slight lymphedema , otherwise a normal exam, Left breast is normal to palpation. Socorro exam is negative bilaterally. The sensitive examination was discussed with the Patient or Patient's Authorized Operating Systems Specialist. As applicable, any other physician, advance practice provider, medical student, or other health professional student that will be observing or involved in the sensitive examination for educational or training purposes was discussed with the Patient or Authorized Operating Systems Specialist. The Patient or Authorized Operating Systems Specialist has agreed to proceed with the sensitive examination. (Sensitive examination includes inspection and/or palpation of the breasts, pelvis, prostate and anorectal regions) Prior exams for reference: Chaperoned Breast Exam September 08, 2023 (Tesha Evangelista) : Right breast is tender but no discreet masses, Left breast is mildly tender and normal. Socorro exam is negative bilaterally. Chaperoned Breast Exam July 07, 2023 (Sara Clinton) : Right breast is tender but no discreet masses, Left breast is mildly tender and normal. Socorro exam is negative bilaterally. Chaperoned Breast Exam April 29, 2023 (Sara Clinton) : Right breast shows continued improvement, now lesion measure 0.5 cm, Left breast was not examined. Chaperoned Breast Exam April 08, 2023 (Evan Lambert): Right breast mass at 12 o' clock just above the NAC definitely feels smaller (approx. 1.5 cm), Left breast is normal. Chaperoned Breast Exam February 21, 2023 (Evan Lambert): Fairly tender right breast with [...] See Comments Aller-Chlor Deconge* Unknown Chlorpheniramine-Ps* Unknown [id number]* Itching Decongest Multi-Act* Other: See Comments Diazepam Other: See Comments sick-headache Diphenhydramine Intolerance Levofloxacin Intolerance Nalbuphine Rash Progesterone Other: See Comments, GI Upset Speeds up metabolism Weight gain and voice hoarse Promethazine Unknown Pseudoephedrine Other: See Comments Other Reaction(s): Hyperactive, severe stimulation Other Reaction(s): Intolerance ANY Decongestant-Hyperactive Pseudoephedrine-Dm-* Intolerance ANY Decongestant-Hyperactive Tavumdu-Kdl-Sii Red* Other: See Comments Other Reaction(s): Unknown Tizanidine Hcl Itching, Other: See Comments Morphine Unknown, GI Upset, Vomiting, Other: See Comments Migraine Tramadol Itching, Unknown Tooth sensitivity Only tolerates low dose Only tolerates low dose MEDICATIONS: predniSONE (DELTASONE) 10 mg tablet Take 10 mg by mouth once daily. gabapentin (NEURONTIN) 300 mg capsule Take 1 capsule by mouth three times a day. ondansetron (ZOFRAN) 8 mg tablet Take 1 tablet by mouth every 8 hours as needed for nausea/vomiting. dicyclomine (BENTYL) 20 mg tablet q 8 HR. hyoscyamine sublingual (LEVSIN SL) 0.125 mg DISSOLVE 1 TABLET UNDER THE TONGUE EVERY 6 HOURS NEEDED ibuprofen (MOTRIN) 600 mg tablet Take 400 mg by mouth at bedtime as needed. meclizine (ANTIVERT) 25 mg tab TAKE 1-2 TABLETS BY MOUTH FOUR TIMES A DAY NEEDED FOR DIZZINESS pantoprazole DR (PROTONIX) 40 mg tablet Take 40 mg by mouth once daily. scopolamine (TRANSDERM-SCOP) patch 1.5 mg/72 hr (delivers 1 mg over 3 days) Apply 1 Patch as directed every 72 hours as needed. simvastatin (ZOCOR) 10 mg tablet Take 10 mg by mouth daily at bedtime. triamcinolone acetonide (KENALOG) 0.1 % cream Apply 1 application to affected area once daily. eletriptan (RELPAX) 40 mg tablet TAKE 1 TABLET BY MOUTH AT ONSET OF MODERATE TO SEVERE MIGRAINE. MAY REPEAT DOSE IN 2 HOURS. MAX OF 2 DOSES IN 24 HOURS, 2 DAYS A WEEK levothyroxine (SYNTHROID) 50 mcg tablet Take 50 mcg by mouth once daily. blood sugar diagnostic (LOGIDOC-SolutionsTOUCH VERIO TEST STRIPS) test strip 1 Strip once daily. metFORMIN (GLUCOPHAGE) 500 mg tablet Take 1 tablet by mouth every 12 hours. (Patient not taking: Reported on 05/31/2024) LABORATORY VALUES: WBC (k/uL) Date Value 05/31/2024 12.44 (H) RBC (m/uL) Date Value 05/31/2024 4.03 Hemoglobin (g/dL) Date Value 05/31/2024 12.2 Hematocrit (%) Date Value 05/31/2024 35.8 (L) MCV (fL) Date Value 05/31/2024 88.8 MCH (pg) Date Value 05/31/2024 30.3 MCHC (g/dL) Date Value 05/31/2024 34.1 RDW-CV (%) Date Value 05/31/2024 13.2 Platelet Count (k/uL) Date Value 05/31/2024 283 MPV (fL) Date Value 05/31/2024 9.2 Glucose (mg/dL) Date Value 05/31/2024 240 (H) BUN (mg/dL) Date Value 05/31/2024 20 Creatinine (mg/dL) Date Value 05/31/2024 0.92 Sodium (mmol/L) Date Value 05/31/2024 132 (L) Potassium (mmol/L) Date Value 05/31/2024 4.0 Chloride (mmol/L) Date Value 05/31/2024 95 (L) CO2 (mmol/L) Date Value 05/31/2024 26 Protein, Total (g/dL) Date Value 05/31/2024 6.4 Albumin (g/dL) Date Value 05/31/2024 3.9 Calcium, Total (mg/dL) Date Value 05/31/2024 9.1 Alkaline Phosphatase (U/L) Date Value 05/31/2024 120 Bilirubin, Total (mg/dL) Date Value 05/31/2024 0.3 AST (U/L) Date Value 05/31/2024 10 (L) ALT (U/L) Date Value 05/31/2024 16 DIAGNOSIS: (C50.411, Z17.0) Malignant neoplasm of upper-outer quadrant of right breast in female, estrogen receptor positive (HCC) (primary encounter diagnosis) Plan: CA 15-3 BLD, CA 27.29 BLOOD, COMPREHENSIVE METABOLIC PANEL, COMPLETE BLOOD COUNT AND DIFFERENTIAL, HEMOGLOBIN A1C, CORTISOL, SERUM, THYROID STIMULATING HORMONE (E04.1) Thyroid nodule Plan: CA 15-3 BLD, CA 27.29 BLOOD, COMPREHENSIVE METABOLIC PANEL, COMPLETE BLOOD COUNT AND DIFFERENTIAL, HEMOGLOBIN A1C, CORTISOL, SERUM, THYROID STIMULATING HORMONE (Z29.89) Immunotherapy Plan: CA 15-3 BLD, CA 27.29 BLOOD, COMPREHENSIVE METABOLIC PANEL, COMPLETE BLOOD COUNT AND DIFFERENTIAL, HEMOGLOBIN A1C, CORTISOL, SERUM, THYROID STIMULATING HORMONE (R79.9) Abnormal blood chemistry Plan: CA 15-3 BLD, CA 27.29 BLOOD, COMPREHENSIVE METABOLIC PANEL, COMPLETE BLOOD COUNT AND DIFFERENTIAL, HEMOGLOBIN A1C, CORTISOL, SERUM, THYROID STIMULATING HORMONE PAST MEDICAL HISTORY Diagnosis Date Anemia Arthritis Breast cancer (HCC) Diabetes (HCC) Diverticulitis of colon Salty Bolton virus infection Essential (primary) hypertension Fibrocystic breast GERD (gastroesophageal reflux disease) Hyperlipidemia Hypothyroidism IBS (irritable bowel syndrome) Malignant neoplasm of upper-outer quadrant of right breast in female, estrogen receptor positive (HCC) 02/21/2023 Migraines Nausea without vomiting 04/30/2021 PONV (postoperative nausea and vomiting) 10/21/2023 POTS (postural orthostatic tachycardia syndrome) Small bowel obstruction (HCC) Thyroid disease Thyroid nodule Vertigo Vitreous detachment of right eye PAST SURGICAL HISTORY Procedure Laterality Date ABDOMINAL SURGERY HX 2004 ADDITIONAL SPINAL FUSION 07/27/2004 APPENDECTOMY BX OF BREAST; INCISIONAL COLONOSCOPY HAND SURGERY HX HERNIA REPAIR HX 04/29/2021 Hiatal LASIK 2002 PAST SURGICAL HISTORY OF cervical fusion 2013, 2018 PAST SURGICAL HISTORY OF Right Foot PAST SURGICAL HISTORY OF Knee Arthroscopy w/ACL reconstruction x2 PAST SURGICAL HISTORY OF Lipoma resection PAST SURGICAL HISTORY OF Lumbar Discectomy PAST SURGICAL HISTORY OF Mass excision right axilla (benign) PAST SURGICAL HISTORY OF Small bowel resection SINUS SURGERY HX SMALL INTESTINE SURGERY HX TONSILLECTOMY HX UNLISTED STOMACH SURGERY Removal stomach polyps VAGINAL HYSTERECTOMY with appendectomy, Meckel's diverticulectomy Social History Tobacco Use Smoking status: Former Current packs/day: 0.00 Types: Cigarettes Quit date: 2016 Years since quittin.0 Passive exposure: Past Smokeless tobacco: Never Tobacco comments: quit smoking in 2014, on and off, 1/3 ppd at most Vaping Use Vaping status: Never Used Substance Use Topics Alcohol use: Not Currently Comment: rarely Drug use: Never FAMILY HISTORY Adopted: Yes Problem Relation Age of Onset Stroke Mother other (addisons) Maternal Grandmother I spent a total of 30 minutes on the date of service which included preparing to see the patient, avys-[id number] patient care, completing clinical documentation, performing a medically appropriate examination, counseling and educating the patient/family/caregiver, ordering medications, tests, or procedures, independently interpreting results (not separately reported), communicating results to the patient/family/caregiver, and care coordination (not separately reported). Paulo Singh MD, CPE Hematology and Oncology Services Provided at: [place], [place] Scribe Attestation: This note was scribed by Renu Sidhu on May 31, 2024 under the direction and supervision of Dr. Paulo Singh. I attest that all of the information documented is correct to the best of my knowledge. Provider Attestation: I, Paulo Singh MD, attest that all information documented by the above scribe is correct, and was supervised by me and under my direction. CC: Dr. Zeke Joaquin [address] [address] [address] Makeda Osei [address] [facility] [address] [address] Rosalba John TSH SERPL-ACNC Collected: 2:41 PM Status: F Source: [facility] Order Comment: Specimen Type : BLOOD SPECIMEN Ordering Facility: [facility] Address: [address] [place], [place] [id number] TYPE CODE TESTS RESULT OUT OF RANGE REFERENCE UNITS LAB 3016-3([facility]) TSH SerPl-aCnc 2.830 0.270-4.200 mIU/L Performed By: #### 3016-3 ## ## [facility] CLIA [id number] [address] [place] [address] [id number] [place] [id number] [facility] COMP METAB 2000 PNL SERPL Collected: 2:41 PM Status: F Source: [facility] Order Comment: Specimen Type : BLOOD SPECIMEN Ordering Facility: [facility] Address: [address] [place], [place] [id number] TYPE CODE TESTS RESULT OUT OF RANGE REFERENCE UNITS LAB 2885-2(LOINC) Prot SerPl-mCnc 6.4 6.3-8.0 g/dL LAB 1751-7(LOINC) Albumin SerPl-mCnc 3.9 3.9-4.9 g/dL LAB 73959-7(LOINC) Calcium SerPl-mCnc 9.1 8.5-10.2 mg/dL LAB 1975-2(LOINC) Bilirub SerPl-mCnc 0.3 0.2-1.3 mg/dL LAB 6768-6(INC) ALP SerPl-cCnc 120 34-123 U/L LAB 1920-8(LOINC) AST SerPl-cCnc 10 Low 13-35 U/L LAB 1742-6(LOINC) ALT SerPl-cCnc 16 7-38 U/L LAB 2345-7(LOINC) Glucose SerPl-mCnc 240 High 74-99 mg/dL Result Comment: The [place] [employer] (ADA) provides guidance for cutoff values for fasting glucose and random glucose. The ADA defines fasting as no caloric intake for at least 8 hours. Fasting plasma glucose results between 100 to 125 mg/dL indicate increased risk for diabetes (prediabetes). Fasting plasma glucose results greater than or equal to 126 mg/dL meet the criteria for diagnosis of diabetes. In the absence of unequivocal hyperglycemia, results should be confirmed by repeat testing. In a patient with classic symptoms of hyperglycemia or hyperglycemic crisis, random plasma glucose results greater than or equal to 200 mg/dL meet the criteria for diagnosis of diabetes. Reference: Standards of Medical Care in Diabetes 2016, [place] [employer]. Diabetes Care. 2016.39(Suppl 1). LAB 3094-0(LOINC) BUN SerPl-mCnc 20 7-21 mg/ dL LAB 2160-0(LOINC) Creat SerPl-mCnc 0.92 0.58-0.96 mg/dL LAB 2951-2(LOINC) Sodium SerPl-sCnc 132 Low 136-144 mmol/L LAB 2823-3(LOINC) Potassium SerPl-sCnc 4.0 3.7-5.1 mmol/L LAB 2075-0(LOINC) Chloride SerPl-sCnc 95 Low 98-107 mmol/L LAB 2028-9(LOINC) CO2 SerPl-sCnc 26 22-30 mmo l/L LAB 75560-4(LOINC) Anion Gap SerPl-sCnc 11 8-15 mmol/L LAB 76868-6(LOINC) Creatinine + eGFR Pnl SerPlBld 68 >=60 mL/min/1 .73m??? Result Comment: Estimated Gl omerular Filtration Rate (eGFR) is calculated using the 2020 CKD-EPI creatinine equation. This equation utilizes serum creatinine, sex, and age as parameters. The creatinine assay has traceable calibration to isotope dilution-mass spectrometry. Refer to KDIGO guidelines for clinical interpretation. In patients with unstable renal function, e.g. those with acute kidney injury, the eGFR may not accurately reflect actual GFR. Performed By: #### [id number] # ### [facility] CLIA [id number] [address] [place] [id number] CBC W AUTO DIFF BLD Collected: 05/31/2024 2:[address] atus: F Source: [facility] Order Comment: Specimen Type : BLOOD SPECIMEN Ordering Facility: [facility] Address: [address] [place] [address] TYPE CODE TESTS RESULT OUT OF RANGE REFERENCE UNITS LAB 6690-2([facility]) WBC # Bld Auto 12.44 High 3.70-11.00 k/uL LAB 789-8([facility]) RBC # Bld Auto 4.03 3.90-5.20 m/ uL LAB 718-7([facility]) Hgb Bld-mCnc 12.2 11.5-15.5 g/dL LAB 4544-3([facility]) Hct VFr Bld Auto 35.8 Low 36.0-46.0 % LAB 787-2([facility]) MCV RBC Auto 88.8 80.0-100.0 fL LAB 785-6([facility]) MCH RBC Qn Auto 30.3 26.0-34.0 p g LAB 786-4([facility]) MCHC RBC Auto-mCnc 34.1 30.5-36.0 g/dL LAB 09138-5([facility]) RDW RBC-Rto 13.2 11.5-15.0 % LAB 777-3([facility]) Platelet # Bld Auto 283 150-400 k/uL LAB 49065-1([facility]) PMV Bld Auto 9.2 9.0-12.7 fL LAB 770-8([facility]) Neutrophils/leuk NFr Bld Auto 82.9 % LAB 751-8([facility]) Neutrophils # Bld Auto 10.32 High 1.45-7.50 k/uL LAB 736-9([facility]) Lymphocytes/leuk NFr Bld Auto 10.4 % LAB 731-0([facility]) Lymphocytes # Bld Auto 1.29 1.00-4.00 k/uL LAB 5905-5([facility]) Monocytes/leuk NFr Bld Auto 5.5 % LAB 742-7([facility]) Monocytes # Bld Auto 0.69 <0.87 k/uL LAB 713-8([facility]) Eosinophil/leuk NFr Bld Auto 0.4 % LAB 711-2([facility]) Eosinophil # Bld Auto 0.05 <0.46 k/uL LAB 706-2([facility]) Basophils/leuk NFr Bld Auto 0.2 % LAB 704-7([facility]) Basophils # Bld Auto <0.03 <0.11 k/uL LAB 54883-2(LOINC) Imm Granulocytes/dominga k NFr Bld Auto 0.6 % LAB 97098-2(LOINC) Imm Granulocytes # Bld Auto 0.07 <0.10 k/uL LAB 43426-5(LOINC) nRBC/100 WBC Bld-Rto 0.0 /100 WBC LAB 771-6(LOINC) nRBC # Bld Auto <0.01 <0.01 k/u L LAB 11580-9([facility]) Differential method Bld Auto Performed By: #### 12436-8 # ### [facility] CLIA [id number] [address] [place] [id number] CNPN Observed: 05/24/2024 12:00 AM Status: COMPLETED Source: [facility] Telephone (HEMASA) MINAJYOTI ([id number]) 1955 F Date Time Provider Department 05/24/24 PAULO SINGH During your visit today, we recorded the following information about you: Divya Davies MA 05/24/2024 10:46 AM Signed Patient has an appt on 05/31/24. Would you like labs, if so place orders. Divya Davies MA Allergies As of Date: 05/24/2024 Noted Allergy Reaction HYDROCODONE 02/10/2018 14 - Other: See Comments 8 - GI Upset Comments: Headaches OXYCODONE 04/18/2018 8 - GI Upset Comments: Can take 1/2 tab, but full tab makes her sick 12 HOUR COLD CAPSULE 11/05/2019 5 - Intolerance ADHESIVE 03/01/2022 14 - Other: See Comments ALLER-CHLOR DECONGESTANT 03/01/2022 16 - Unknown CHLORPHENIRAMINE-PSEUDOEPHED 02/21/2023 16 - Unknown [id number]-ONGOEHXNK-JRAOCTMIYHALJ 09/08/2017 9 - Itching DECONGEST MULTI-ACTION 12/03/2019 [...] severe stimulation Other Reaction(s): Intolerance ANY Decongestant-Hyperactive GTGFZKWKGBGSVMD-CD-VBTVJZKDULJ 04/02/2019 5 - Intolerance Comments: ANY Decongestant-Hyperactive PWKFCWT-PIM-QOG REDUCTASE INHIBIT*08/24/2021 14 - Other: See Comments Comments: Other Reaction(s): Unknown TIZANIDINE HCL 09/30/2023 9 - Itching 14 - Other: See Comments MORPHINE 07/05/2011 16 - Unknown 8 - GI Upset 11 - Vomiting 14 - Other: See Comments Comments: Migraine TRAMADOL 09/05/2013 9 - Itching 16 - Unknown Comments: Tooth sensitivity Only tolerates low dose Only tolerates low dose Date Reviewed: 05/24/2024 Reviewed by: Babita Hernandez PA-C - Fully Assessed Reason for Visit: Lab Orders [1688] Primary Visit Diagnosis:Malignant neoplasm of upper-outer quadrant of right breast in female, estrogen receptor positive (HCC) [C50.411, Z17.0] Other Visit Diagnosis:Thyroiditis [E06.9] Order(s):COMPREHENSIVE METABOLIC PANEL [SQCMP] Order #: [id number] FUTURE COMPLETE BLOOD COUNT AND DIFFERENTIAL [SQCBCDIF] Order #: [id number] FUTURE THYROID STIMULATING HORMONE [SQTSH] Order #: [id number] FUTURE Prescriptions as of 05/24/2024 - gabapentin (NEURONTIN) 300 mg capsule Take 1 capsule by mouth three times a day. - metFORMIN (GLUCOPHAGE) 500 mg tablet Take 1 tablet by mouth every 12 hours. - ondansetron (ZOFRAN) 8 mg tablet Take 1 tablet by mouth every 8 hours as needed for nausea/vomiting. - dicyclomine (BENTYL) 20 mg tablet q 8 HR. - hyoscyamine sublingual (LEVSIN SL) 0.125 mg DISSOLVE 1 TABLET UNDER THE TONGUE EVERY 6 HOURS NEEDED - ibuprofen (MOTRIN) 600 mg tablet Take 400 mg by mouth at bedtime as needed. - meclizine (ANTIVERT) 25 mg tab TAKE 1-2 TABLETS BY MOUTH FOUR TIMES A DAY NEEDED FOR DIZZINESS - pantoprazole DR (PROTONIX) 40 mg tablet Take 40 mg by mouth once daily. - scopolamine (TRANSDERM-SCOP) patch 1.5 mg/72 hr (delivers 1 mg over 3 days) Apply 1 Patch as directed every 72 hours as needed. - simvastatin (ZOCOR) 10 mg tablet Take 10 mg by mouth daily at bedtime. - triamcinolone acetonide (KENALOG) 0.1 % cream Apply 1 application to affected area once daily. - eletriptan (RELPAX) 40 mg tablet TAKE 1 TABLET BY MOUTH AT ONSET OF MODERATE TO SEVERE MIGRAINE. MAY REPEAT DOSE IN 2 HOURS. MAX OF 2 DOSES IN 24 HOURS, 2 DAYS A WEEK - levothyroxine (SYNTHROID) 50 mcg tablet Take 50 mcg by mouth once daily. - blood sugar diagnostic (LOGIDOC-SolutionsTOUCH VERIO TEST STRIPS) test strip 1 Strip once daily. 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9] 04/29/2023 Blood glucose elevated [R73.9] 04/29/2023 PONV (postoperative nausea and vomiting) [R11.2*10/21/2023 Encounter Status:Closed by SUSANA LEIGH on 05/24/24 PROGRESS Observed: 05/04/2024 11:14 AM Status: COMPLETED Source: [facility] HNO ID: [id number] Author: JENNIFER BRASHER RN Service: ? Author Type: Registered Nurse Type: Progress Notes Filed: 05/04/2024 11:15 Note Text: Base line circumferential arm measurements were taken. Dominant arm is the right side. Right Arm Measurements: Middle finger most proximal aspect 6.75 cm At the palm straight across proximal to knuckles 18 cm At the wrist just proximal to ulnar styloid process 15.75 cm Forearm,10 cm distal to the antecubital fossa 27 cm Antecubital fossa 27.25 cm Mid upper arm,10 cm proximal to the antecubital fossa 36.5 cm Left Arm Measurements: Middle finger most proximal aspect 6.5 cm At the palm straight across proximal to knuckles 18.25 cm At the wrist (just proximal to ulnar styloid process) 16.25 cm Forearm,10 cm distal to the antecubital fossa 27.5 cm Antecubital fossa 27.75 cm Mid upper arm,10 cm proximal to the antecubital fossa 37 cm US THYROID/PARATHYROID Observed: 024 11:11 AM Status: F Source: [facility] * * *Final Report* * * DATE OF EXAM: May 04 2024 11:11AM HARI 1048 - US THYROID/PARATHYROID / PROCEDURE REASON: Thyroid nodule * * * * Physician Interpretation * * * * EXAMINATION: THYROID ULTRASOUND CLINICAL HISTORY: Thyroid nodule TECHNIQUE: Sonography and Doppler imaging of the thyroid was performed. Images were obtained and stored in a permanent archive. MQ: UST_1 COMPARISON: None. RESULT: Right Lobe: 3.6 x 1.9 x 1.4 cm; homogeneous echogenicity with multiple small nodules, expected vascular flow. Left Lobe: 3.1 x 1.3 x 0.9 cm; homogeneous echogenicity, expected vascular flow. Isthmus: 0.2 cm The most suspicious thyroid nodule(s) (up to four) as below: NODULE 1: Location: Right mid Size: 0.7 x 0.5 x 0.6 cm Characteristics: Composition: Solid or almost completely solid, 2 points Echogenicity: Hypoechoic, 2 points Shape: Jrmho-hsvx-ditm, 0 points Margin: Smooth, 0 points Echogenic foci (add points for all that apply): Macrocalcifications, 1 point Internal vascularity: present Interval growth: No prior available for comparison TI-RADS Category: TR4 ACR Recommendation: TI-RADS 4 nodule. No FNA or follow-up imaging is advised. NODULE 2: Location: Left isthmus Size: 1.2 x 0.5 x 1.0 cm Characteristics: Composition: Cystic or almost completely cystic, 0 points Echogenicity: Anechoic, 0 points Shape: Elyrh-kgof-hqyh, 0 points Margin: Smooth, 0 points Echogenic foci (add points for all that apply): None, 0 points Internal vascularity: absent Interval growth: No prior available for comparison TI-RADS Category: TR1, benign ACR Recommendation: TI-RADS 1 Nodule, no follow-up or FNA is advised. IMPRESSION: Thyroid nodule(s) present is/are clinically insignificant. No surveillance is advised. TI-RADS Category: TR4 ACR Recommendation: TI-RADS 4 nodule. No FNA or follow-up imaging is advised. ACR recommendations are strictly based on the size and imaging appearance at the time of the exam and do not consider stability or previous biopsy results. Offender Job Retention Specialist: MARISSA Transcribe Date/Time: May 06 2024 10:04A Dictated by : JOSIAH AMES MD This examination was interpreted and the report reviewed and electronically signed by: JOSIAH AMES MD on May 06 2024 10:07AM EST [id number] PROGRESS Observed: 05/04/2024 10:02 AM Status: COMPLETED Source: [facility] HNO ID: [id number] Author: ROSALBA REYNOSO MD Service: ? Author Type: Physician Type: Progress Notes Filed: 09/20/2024 00:24 Note Text: Breast Surgery Follow Up Visit Original surgery date: 10/2023 Procedure: Right lumpectomy with SLNB Oncologist: Dr. Singh Chemotherapy: NAC, now Keytruda Radiation: Complete 12/2023 Endocrine therapy: N/A Interval history: No new medical problems. No breast complaints. No masses, skin changes, nipple d/c. Last mammogram: 02/2024 ROS GENERAL: No weight loss, malaise or fevers. HEENT: Negative for frequent or significant headaches, Negative for changes in hearing, vision or dizziness, Negative for nose bleeds, Negative for difficulty swallowing or hoarsness RESPIRATORY: Negative for cough, hemoptysis, wheezing or shortness of breath CARDIOVASCULAR: Negative for chest pain, leg swelling or palpitations. GI: No nausea, vomiting, diarrhea, constipation, hematochezia, melena, or abdominal pain : No history of dysuria, hematuria, frequency or incontinence. SKIN: Negative for lesions, rash, and itching NEURO: No history of headaches, syncope, paralysis, seizures or tremors LYMPH: No LAD ENDO: No DM Exam Ambulatory, NAD Sclera anicteric Resp unlabored No arm swelling The sensitive examination was discussed with the Patient or Patient's Authorized Operating Systems Specialist. As applicable, any other physician, advance practice provider, medical student, or other health professional student that will be observing or involved in the sensitive examination for educational or training purposes was discussed with the Patient or Authorized Operating Systems Specialist. The Patient or Authorized Operating Systems Specialist has agreed to proceed with the sensitive examination. (Sensitive examination includes inspection and/or palpation of the breasts, pelvis, prostate and anorectal regions) Right breast: Post op change Left breast: Neg No supraclavicular or axillary lymphadenopathy Consutlants notes reviewed Most recent imaging reviewed Assessment 68 year old year old female with history of right breast CA doing well after lumpectomy. Plan: Cont to advise -Monthly self exams -Annual clinical exams -Annual mammography - due 08/2024 -Oncologic follow up as planned Follow Up: with imaging Sooner if any new findings/concerns Rosalba Reynoso MD CNOV Observed: 05/04/2024 10:00 AM Status: COMPLETED Source: [facility] Office Visit ([facility]) JYOTI THAO ([id number]) 1955 F Date Time Provider Department 05/04/24 10:00 AM ROSALBA REYNOSO [facility] During your visit today, we recorded the following information about you: Weight Height 80.3 kg 1.676 m Rosalba Reynoso MD 09/20/2024 12:24 AM Signed Breast Surgery Follow Up Visit Original surgery date: 10/2023 Procedure: Right lumpectomy with SLNB Oncologist: Dr. Singh Chemotherapy: NAC, now Keytruda Radiation: Complete 12/2023 Endocrine therapy: N/A Interval history: No new medical problems. No breast complaints. No masses, skin changes, nipple d/c. Last mammogram: 02/2024 ROS GENERAL: No weight loss, malaise or fevers. HEENT: Negative for frequent or significant headaches, Negative for changes in hearing, vision or dizziness, Negative for nose bleeds, Negative for difficulty swallowing or hoarsness RESPIRATORY: Negative for cough, hemoptysis, wheezing or shortness of breath CARDIOVASCULAR: Negative for chest pain, leg swelling or palpitations. GI: No nausea, vomiting, diarrhea, constipation, hematochezia, melena, or abdominal pain : No history of dysuria, hematuria, frequency or incontinence. SKIN: Negative for lesions, rash, and itching NEURO: No history of headaches, syncope, paralysis, seizures or tremors LYMPH: No LAD ENDO: No DM Exam Ambulatory, NAD Sclera anicteric Resp unlabored No arm swelling The sensitive examination was discussed with the Patient or Patient's Authorized Operating Systems Specialist. As applicable, any other physician, advance practice provider, medical student, or other health professional student that will be observing or involved in the sensitive examination for educational or training purposes was discussed with the Patient or Authorized Operating Systems Specialist. The Patient or Authorized Operating Systems Specialist has agreed to proceed with the sensitive examination. (Sensitive examination includes inspection and/or palpation of the breasts, pelvis, prostate and anorectal regions) Right breast: Post op change Left breast: Neg No supraclavicular or axillary lymphadenopathy Consutlants notes reviewed Most recent imaging reviewed Assessment 68 year old year old female with history of right breast CA doing well after lumpectomy. Plan: Cont to advise -Monthly self exams -Annual clinical exams -Annual mammography - due 08/2024 -Oncologic follow up as planned Follow Up: with imaging Sooner if any new findings/concerns MD Meaghan Chandra, Rosalba Aleman MD 05/04/2024 10:31 AM Signed Nice to see you today. We will look forward to seeing you in 6 months. I will have Tawnya message you with the locations that our [place] patients will see occupational therapy - keep that in mind as an option. Please let us know of any new concerns in the interim. Rosalba Reynoso MD Referring Provider: MAKEDA OSEI [[id number]] Allergies As of Date: 05/04/2024 Noted Allergy Reaction HYDROCODONE 02/10/2018 14 - Other: See Comments 8 - GI Upset Comments: Headaches OXYCODONE 04/18/2018 8 - GI Upset Comments: Can take 1/2 tab, but full tab makes her sick 12 HOUR COLD CAPSULE 11/05/2019 5 - Intolerance ADHESIVE 03/01/2022 14 - Other: See Comments ALLER-CHLOR DECONGESTANT 03/01/2022 16 - Unknown CHLORPHENIRAMINE-PSEUDOEPHED 02/21/2023 16 - Unknown [id number]-YIYIAPPZK-DNYGUYUYPNOAI 09/08/2017 9 - Itching DECONGEST MULTI-ACTION 12/03/2019 [...] severe stimulation Other Reaction(s): Intolerance ANY Decongestant-Hyperactive QEJUWNJZDBOBBCN-IL-PRWYZAYKVHR 04/02/2019 5 - Intolerance Comments: ANY Decongestant-Hyperactive LVUCNJU-MEU-UAT REDUCTASE INHIBIT*08/24/2021 14 - Other: See Comments Comments: Other Reaction(s): Unknown TIZANIDINE HCL 09/30/2023 9 - Itching 14 - Other: See Comments MORPHINE 07/05/2011 16 - Unknown 8 - GI Upset 11 - Vomiting 14 - Other: See Comments Comments: Migraine TRAMADOL 09/05/2013 9 - Itching 16 - Unknown Comments: Tooth sensitivity Only tolerates low dose Only tolerates low dose Date Reviewed: 05/04/2024 Reviewed by: Rosalba Reynoso MD - Fully Assessed Reason for Visit: Established Patient [175] Primary Visit Diagnosis:Malignant neoplasm of central portion of right breast in female, estrogen receptor negative (HCC) [C50.111, Z17.1] Prescriptions as of 09/20/2024 - gabapentin (NEURONTIN) 300 mg capsule Take 1 capsule by mouth three times a day. - metFORMIN (GLUCOPHAGE) 500 mg tablet Take 1 tablet by mouth every 12 hours. - ondansetron (ZOFRAN) 8 mg tablet Take 1 tablet by mouth every 8 hours as needed for nausea/vomiting. - ibuprofen (MOTRIN) 600 mg tablet Take 400 mg by mouth at bedtime as needed. - meclizine (ANTIVERT) 25 mg tab TAKE 1-2 TABLETS BY MOUTH FOUR TIMES A DAY NEEDED FOR DIZZINESS - pantoprazole DR (PROTONIX) 40 mg tablet Take 40 mg by mouth once daily. - scopolamine (TRANSDERM-SCOP) patch 1.5 mg/72 hr (delivers 1 mg over 3 days) Apply 1 Patch as directed every 72 hours as needed. - simvastatin (ZOCOR) 10 mg tablet Take 10 mg by mouth daily at bedtime. - triamcinolone acetonide (KENALOG) 0.1 % cream Apply 1 application to affected area once daily. - eletriptan (RELPAX) 40 mg tablet TAKE 1 TABLET BY MOUTH AT ONSET OF MODERATE TO SEVERE MIGRAINE. MAY REPEAT DOSE IN 2 HOURS. MAX OF 2 DOSES IN 24 HOURS, 2 DAYS A WEEK - levothyroxine (SYNTHROID) 50 mcg tablet Take 50 mcg by mouth once daily. - blood sugar diagnostic (ONETOUCH VERIO TEST STRIPS) test strip 1 Strip once daily. 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9] 04/29/2023 Blood glucose elevated [R73.9] 04/29/2023 PONV (postoperative nausea and vomiting) [R11.2*10/21/2023 Other instructions from your clinician: Nice to see you today. We will look forward to seeing you in 6 months. I will have Tawnya message you with the locations that our [place] patients will see occupational therapy - keep that in mind as an option. Please let us know of any new concerns in the interim. Rosalba Reynoso MD Disposition: Return in about 6 months (around 11/02/2024). Follow-up and Disposition History for Encounter Date Provider Department Center 05/04/2024 [id number] REYNOSO [facility] Encounter Status:Closed by ROSALBA REYNOSO on 09/20/24 CNPN Observed: 04/30/2024 12:00 AM Status: COMPLETED Source: [facility] Telephone ([facility]) MINAJYOTI ([id number]) 1955 F Date Time Provider Department 04/30/24 ROSALBA REYNOSO During your visit today, we recorded the following information about you: Elaina Jordan 04/30/2024 10:20 AM Signed Patient called and asked if she was supposed to have a breast MRI prior to her upcoming appointment. Please advice Jennifer Brasher RN 04/30/2024 10:36 AM Signed After review of the past appointment notes, it does not look howard the patient needs a breast MRI prior to appt on 05/04. Patient notified Allergies As of Date: 04/30/2024 Noted Allergy Reaction HYDROCODONE 02/10/2018 14 - Other: See Comments 8 - GI Upset Comments: Headaches OXYCODONE 04/18/2018 8 - GI Upset Comments: Can take 1/2 tab, but full tab makes her sick 12 HOUR COLD CAPSULE 11/05/2019 5 - Intolerance ADHESIVE 03/01/2022 14 - Other: See Comments ALLER-CHLOR DECONGESTANT 03/01/2022 16 - Unknown CHLORPHENIRAMINE-PSEUDOEPHED 02/21/2023 16 - Unknown [id number]-BEOEHMAAY-FSVCEBVYARLAC 09/08/2017 9 - Itching DECONGEST MULTI-ACTION 12/03/2019 [...] severe stimulation Other Reaction(s): Intolerance ANY Decongestant-Hyperactive PSUAJEBCPHJXOLM-TM-VDYYFELIBBN 04/02/2019 5 - Intolerance Comments: ANY Decongestant-Hyperactive ZGOTQXW-XGH-LUW REDUCTASE INHIBIT*08/24/2021 14 - Other: See Comments Comments: Other Reaction(s): Unknown TIZANIDINE HCL 09/30/2023 9 - Itching 14 - Other: See Comments MORPHINE 07/05/2011 16 - Unknown 8 - GI Upset 11 - Vomiting 14 - Other: See Comments Comments: Migraine TRAMADOL 09/05/2013 9 - Itching 16 - Unknown Comments: Tooth sensitivity Only tolerates low dose Only tolerates low dose Date Reviewed: 03/08/2024 Reviewed by: Divya Davies MA - Fully Assessed Reason for Visit: Patient Question [1477] Prescriptions as of 04/30/2024 - gabapentin (NEURONTIN) 300 mg capsule Take 1 capsule by mouth three times a day. - metFORMIN (GLUCOPHAGE) 500 mg tablet Take 1 tablet by mouth every 12 hours. - ondansetron (ZOFRAN) 8 mg tablet Take 1 tablet by mouth every 8 hours as needed for nausea/vomiting. - dicyclomine (BENTYL) 20 mg tablet q 8 HR. - hyoscyamine sublingual (LEVSIN SL) 0.125 mg DISSOLVE 1 TABLET UNDER THE TONGUE EVERY 6 HOURS NEEDED - ibuprofen (MOTRIN) 600 mg tablet Take 400 mg by mouth at bedtime as needed. - meclizine (ANTIVERT) 25 mg tab TAKE 1-2 TABLETS BY MOUTH FOUR TIMES A DAY NEEDED FOR DIZZINESS - pantoprazole DR (PROTONIX) 40 mg tablet Take 40 mg by mouth once daily. - scopolamine (TRANSDERM-SCOP) patch 1.5 mg/72 hr (delivers 1 mg over 3 days) Apply 1 Patch as directed every 72 hours as needed. - simvastatin (ZOCOR) 10 mg tablet Take 10 mg by mouth daily at bedtime. - triamcinolone acetonide (KENALOG) 0.1 % cream Apply 1 application to affected area once daily. - eletriptan (RELPAX) 40 mg tablet TAKE 1 TABLET BY MOUTH AT ONSET OF MODERATE TO SEVERE MIGRAINE. MAY REPEAT DOSE IN 2 HOURS. MAX OF 2 DOSES IN 24 HOURS, 2 DAYS A WEEK - levothyroxine (SYNTHROID) 50 mcg tablet Take 50 mcg by mouth once daily. - blood sugar diagnostic (LOGIDOC-SolutionsTOUCH VERIO TEST STRIPS) test strip 1 Strip once daily. 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9] 04/29/2023 Blood glucose elevated [R73.9] 04/29/2023 PONV (postoperative nausea and vomiting) [R11.2*10/21/2023 Encounter Status:Closed by JENNIFER BRASHER on 04/30/24 MAKR Observed: 03/21/2024 12:00 AM Status: COMPLETED Source: [facility] Telephone (zhouwuLST) JYOTI THAO ([id number]) 1955 F Date Time Provider Department 03/21/24 [facility] ALCARAZ [facility] During your visit today, we recorded the following information about you: Georgia Alcaraz PA-C 03/21/2024 9:34 AM Signed Please call pt and schedule bilateral diagnostic mammography and right ultrasound in August 2024. Georgia Alcaraz PA-C Allergies As of Date: 03/21/2024 Noted Allergy Reaction HYDROCODONE 02/10/2018 14 - Other: See Comments 8 - GI Upset Comments: Headaches OXYCODONE 04/18/2018 8 - GI Upset Comments: Can take 1/2 tab, but full tab makes her sick 12 HOUR COLD CAPSULE 11/05/2019 5 - Intolerance ADHESIVE 03/01/2022 14 - Other: See Comments ALLER-CHLOR DECONGESTANT 03/01/2022 16 - Unknown CHLORPHENIRAMINE-PSEUDOEPHED 02/21/2023 16 - Unknown [id number] 09/08/2017 9 - Itching DECONGEST MULTI-ACTION 12/03/2019 [...] severe stimulation Other Reaction(s): Intolerance ANY Decongestant-Hyperactive [id number] 04/02/2019 5 - Intolerance Comments: ANY Decongestant-Hyperactive [id number] REDUCTASE INHIBIT*08/24/2021 14 - Other: See Comments Comments: Other Reaction(s): Unknown TIZANIDINE HCL 09/30/2023 9 - Itching 14 - Other: See Comments MORPHINE 07/05/2011 16 - Unknown 8 - GI Upset 11 - Vomiting 14 - Other: See Comments Comments: Migraine TRAMADOL 09/05/2013 9 - Itching 16 - Unknown Comments: Tooth sensitivity Only tolerates low dose Only tolerates low dose Date Reviewed: 03/08/2024 Reviewed by: Divya Davies MA - Fully Assessed 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 - metFORMIN (GLUCOPHAGE) 500 mg tablet Take 1 tablet by mouth every 12 hours. - ondansetron (ZOFRAN) 8 mg tablet Take 1 tablet by mouth every 8 hours as needed for nausea/vomiting. - dicyclomine (BENTYL) 20 mg tablet q 8 HR. - hyoscyamine sublingual (LEVSIN SL) 0.125 mg DISSOLVE 1 TABLET UNDER THE TONGUE EVERY 6 HOURS NEEDED - ibuprofen (MOTRIN) 600 mg tablet Take 400 mg by mouth at bedtime as needed. - meclizine (ANTIVERT) 25 mg tab TAKE 1-2 TABLETS BY MOUTH FOUR TIMES A DAY NEEDED FOR DIZZINESS - pantoprazole DR (PROTONIX) 40 mg tablet Take 40 mg by mouth once daily. - scopolamine (TRANSDERM-SCOP) patch 1.5 mg/72 hr (delivers 1 mg over 3 days) Apply 1 Patch as directed every 72 hours as needed. - simvastatin (ZOCOR) 10 mg tablet Take 10 mg by mouth daily at bedtime. - triamcinolone acetonide (KENALOG) 0.1 % cream Apply 1 application to affected area once daily. - eletriptan (RELPAX) 40 mg tablet TAKE 1 TABLET BY MOUTH AT ONSET OF MODERATE TO SEVERE MIGRAINE. MAY REPEAT DOSE IN 2 HOURS. MAX OF 2 DOSES IN 24 HOURS, 2 DAYS A WEEK - levothyroxine (SYNTHROID) 50 mcg tablet Take 50 mcg by mouth once daily. - blood sugar diagnostic (BababooUCH VERIO TEST STRIPS) test strip 1 Strip once daily. 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9] 04/29/2023 Blood glucose elevated [R73.9] 04/29/2023 PONV (postoperative nausea and vomiting) [R11.2*10/21/2023 Encounter Status:Closed by GEORGIA ALCARAZ on 04/11/24 MARK Observed: 03/19/2024 12:00 AM Status: COMPLETED Source: [facility] Telephone (RADMN) JYOTI THAO ([id number]) 1955 F Date Time Provider Department 03/19/24 KASSI MAGDALENO [facility] During your visit today, we recorded the following information about you: Kassi Magdaleno RN 03/19/2024 9:40 AM Signed Called patient to notify the breast pathology results are benign per Dr. Stauffer. Informed patient a 6 month follow up is recommended. Patient verbalized understanding. Allergies As of Date: 03/19/2024 Noted Allergy Reaction HYDROCODONE 02/10/2018 14 - Other: See Comments 8 - GI Upset Comments: Headaches OXYCODONE 04/18/2018 8 - GI Upset Comments: Can take 1/2 tab, but full tab makes her sick 12 HOUR COLD CAPSULE 11/05/2019 5 - Intolerance ADHESIVE 03/01/2022 14 - Other: See Comments ALLER-CHLOR DECONGESTANT 03/01/2022 16 - Unknown CHLORPHENIRAMINE-PSEUDOEPHED 02/21/2023 16 - Unknown [id number] 09/08/2017 9 - Itching DECONGEST MULTI-ACTION 12/03/2019 [...] severe stimulation Other Reaction(s): Intolerance ANY Decongestant-Hyperactive [id number] 04/02/2019 5 - Intolerance Comments: ANY Decongestant-Hyperactive XEIFYBM-OOR-OUI REDUCTASE INHIBIT*08/24/2021 14 - Other: See Comments Comments: Other Reaction(s): Unknown TIZANIDINE HCL 09/30/2023 9 - Itching 14 - Other: See Comments MORPHINE 07/05/2011 16 - Unknown 8 - GI Upset 11 - Vomiting 14 - Other: See Comments Comments: Migraine TRAMADOL 09/05/2013 9 - Itching 16 - Unknown Comments: Tooth sensitivity Only tolerates low dose Only tolerates low dose Date Reviewed: 03/08/2024 Reviewed by: Divya Davies MA - Fully Assessed Reason for Visit: Results [95] Prescriptions as of 03/19/2024 - gabapentin (NEURONTIN) 300 mg capsule Take 1 capsule by mouth three times a day. - metFORMIN (GLUCOPHAGE) 500 mg tablet Take 1 tablet by mouth every 12 hours. - ondansetron (ZOFRAN) 8 mg tablet Take 1 tablet by mouth every 8 hours as needed for nausea/vomiting. - dicyclomine (BENTYL) 20 mg tablet q 8 HR. - hyoscyamine sublingual (LEVSIN SL) 0.125 mg DISSOLVE 1 TABLET UNDER THE TONGUE EVERY 6 HOURS NEEDED - ibuprofen (MOTRIN) 600 mg tablet Take 400 mg by mouth at bedtime as needed. - meclizine (ANTIVERT) 25 mg tab TAKE 1-2 TABLETS BY MOUTH FOUR TIMES A DAY NEEDED FOR DIZZINESS - pantoprazole DR (PROTONIX) 40 mg tablet Take 40 mg by mouth once daily. - scopolamine (TRANSDERM-SCOP) patch 1.5 mg/72 hr (delivers 1 mg over 3 days) Apply 1 Patch as directed every 72 hours as needed. - simvastatin (ZOCOR) 10 mg tablet Take 10 mg by mouth daily at bedtime. - triamcinolone acetonide (KENALOG) 0.1 % cream Apply 1 application to affected area once daily. - eletriptan (RELPAX) 40 mg tablet TAKE 1 TABLET BY MOUTH AT ONSET OF MODERATE TO SEVERE MIGRAINE. MAY REPEAT DOSE IN 2 HOURS. MAX OF 2 DOSES IN 24 HOURS, 2 DAYS A WEEK - levothyroxine (SYNTHROID) 50 mcg tablet Take 50 mcg by mouth once daily. - blood sugar diagnostic (ONETOUCH VERIO TEST STRIPS) test strip 1 Strip once daily. Problem List As Of Date 03/19/2024 Noted Resolved Paraesophageal hernia [K44.9] 02/26/2021 Hiatal hernia with gastroesophageal reflux [K44*01/22/1996 Diabetes type 2, controlled (HCC) [E11.9] 02/14/2017 Mixed hyperlipidemia [E78.2] 07/05/2011 Essential (primary) hypertension [I10] 04/27/2021 Postural orthostatic tachycardia syndrome [G90.*10/24/2017 Migraine [G43.909] 04/27/2021 Hiatal hernia [K44.9] 04/29/2021 Obesity, Class I, BMI 30-34.9 [E66.811] 04/30/2021 Nausea without vomiting [R11.0] 04/30/2021 Malignant neoplasm of upper-outer quadrant of r*02/21/2023 Malignant neoplasm of central portion of right *04/29/2023 Immunotherapy [Z29.89] 04/29/2023 Thyroiditis [E06.9] 04/29/2023 Blood glucose elevated [R73.9] 04/29/2023 PONV (postoperative nausea and vomiting) [R11.2*10/21/2023 Encounter Status:Closed by KASSI MAGDALENO on 03/19/24 SUSIE HAYES Observed: 03/14/2024 11:53 AM Status: C Source: [facility] * * *Final Report* * * * * * SEE BOTTOM OF REPORT FOR ADDENDED TEXT * * * DATE OF EXAM: Mar 14 2024 11:53AM W 0629 - SUSIE HAYES / PROCEDURE REASON: Abnormal finding on radiological examination of breast * * * * Physician Interpretation * * * * RESULT: [facility] [address] [facility] [address] - - - - - - - - - - ADDENDED REPORT - - - - - - - - - - 03/23/2024 at 12:40:03 Addendum: The final pathology results of the patient's ultrasound guided core biopsy demonstrate the following; Site 1 - (right breast) Benign Breast Parenchyma, Dense Stromal Fibrosis And Rare Microcalcifications. This is concordant with the imaging findings. RECOMMENDATION Site 1: Post Biopsy: Six month follow up mammogram for this finding in the right breast and for calcifications previously recommended for follow-up in the left breast Interpreting Radiologist: Suman Stauffer M.D. Electronically signed on: 03/23/2024 - - - - - - - - - - ORIGINAL REPORT - - - - - - - - - - HISTORY: 68 year old patient presents for ultrasound guided core biopsy of mass at 11 o'clock, 4 cm from the nipple in the right breast. PATIENT CONSENT: A time out was performed [...] technologist were present throughout the entire procedure. Correlation is made to exams dated: Site 1: Audible Time Out Time: 1120 Procedure Start Time: 112 Procedure Stop Time: 1133 An ultrasound guided biopsy using real-time ultrasound was performed for the concerning mass located in the right breast at 11 o'clock 4 cm from the nipple. This was described on the previous ultrasound [...] documented to be in the correct location, 3 passes were made using a spring-loaded biopsy device. A Q biopsy marker was then placed under sonographic guidance. A skin closure strip and a sterile dressing were applied to the access site. During the procedure, there were no biopsy complications observed. The specimens were sent to the laboratory for pathological analysis. Post procedure imaging demonstrates the clip in appropriate position at the biopsy target. The breasts are heterogeneously dense, which may obscure small masses. IMPRESSION: ULTRASOUND GUIDED BIOPSY Site 1: Successful ultrasound guided biopsy of the mass at 11 o'clock, 4 cm from the nipple in the right breast with placement of a clip was successful. Waiting for pathology results. A final report will be issued when these become available. Interpreting Radiologist: Suman Stauffer M.D. Electronically signed on: 03/14/2024 Offender Job Retention Specialist: DAO Transcribe Date/Time: Mar 14 2024 11:42A Dictated by : SUMAN STAUFFER MD This examination was interpreted and the report reviewed and electronically signed by: SUMAN STAUFFER MD on Mar 14 2024 2:40PM EST This document has been addended by: SUMAN STAUFFER MD on Mar 23 2024 12:40PM EST [id number] [facility] US BIOPSY BREAST RT Observed: 2023 11:41 AM Status: C Source: [facility] * * *Final Report* * * * * * SEE BOTTOM OF REPORT FOR ADDENDED TEXT * * * DATE OF EXAM: Mar 14 2024 11:41AM W 0598 - [facility] US BIOPSY BREAST RT / PROCEDURE REASON: Abnormal finding on radiological examination of breast * * * * Physician Interpretation * * * * RESULT: [facility] [address] [address] [place] [address] - - - - - - - - - - ADDENDED REPORT - - - - - - - - - - 03/23/2024 at 12:40:03 Addendum: The final pathology results of the patient's ultrasound guided core biopsy demonstrate the following; Site 1 - (right breast) Benign Breast Parenchyma, Dense Stromal Fibrosis And Rare Microcalcifications. This is concordant with the imaging findings. RECOMMENDATION Site 1: Post Biopsy: Six month follow up mammogram for this finding in the right breast and for calcifications previously recommended for follow-up in the left breast Interpreting Radiologist: Suman Stauffer M.D. Electronically signed on: 03/23/2024 - - - - - - - - - - ORIGINAL REPORT - - - - - - - - - - HISTORY: 68 year old patient presents for ultrasound guided core biopsy of mass at 11 o'clock, 4 cm from the nipple in the right breast. PATIENT CONSENT: A time out was performed [...] technologist were present throughout the entire procedure. Correlation is made to exams dated: Site 1: Audible Time Out Time: 1119 Procedure Start Time: 1122 Procedure Stop Time: 1132 An ultrasound guided biopsy using real-time ultrasound was performed for the concerning mass located in the right breast at 11 o'clock 4 cm from the nipple. This was described on the previous ultrasound [...] documented to be in the correct location, 3 passes were made using a spring-loaded biopsy device. A Q biopsy marker was then placed under sonographic guidance. A skin closure strip and a sterile dressing were applied to the access site. During the procedure, there were no biopsy complications observed. The specimens were sent to the laboratory for pathological analysis. Post procedure imaging demonstrates the clip in appropriate position at the biopsy target. The breasts are heterogeneously dense, which may obscure small masses. IMPRESSION: ULTRASOUND GUIDED BIOPSY Site 1: Successful ultrasound guided biopsy of the mass at 11 o'clock, 4 cm from the nipple in the right breast with placement of a clip was successful. Waiting for pathology results. A final report will be issued when these become available. Interpreting Radiologist: Suman Stauffer M.D. Electronically signed on: 03/14/2024 Offender Job Retention Specialist: DAO Transcribe Date/Time: Mar 14 2024 10:49A Dictated by : SUMAN STAUFFER MD This examination was interpreted and the report reviewed and electronically signed by: SUMAN STAUFFER MD on Mar 14 2024 2:40PM EST This document has been addended by: SUMAN STAUFFER MD on Mar 23 2024 12:40PM EST [id number] PT ED Observed: 03/14/2024 11:35 AM Status: COMPLETED Source: [facility] HNO ID: [id number] Author: PATRICE MORSE RT(R) Service: ? Author Type: Technologist Type: Patient Education Filed: 03/14/2024 11:36 Note Text: Post procedure written instructions were given to pt SURGICAL PATHOLOGY Collected: 11:27 AM Status: F Source: [facility] Order Comment: Specimen Type : TISSUE SPECIMEN Ordering Facility: [facility] Address: [address] [place] [address] TYPE CODE TESTS RESULT OUT OF RANGE REFERENCE UNITS PATHOLOGY [id number] CASE REPORT Result Comment: Surgical Pat hology Report Case: [id number] Authorizing Provider: Suman Stauffer MD Collected: 03/14/2024 11:27 AM Ordering Location: [facility] Radiology Received: 03/14/2024 01:13 PM Mammography Pathologist: Dawson Webster MD Specimen: Breast, Right, Core Biopsy, right breast, 11 o'clock, 4cmfn, 1.0 cm irregular mass, Q-clip PATHOLOGY [id number] FINAL DIAGNOSIS Result Comment: A. Breast, r ight, at 11:00, 4 cm from the nipple, mass, Q clip, ultrasound-guided core biopsy: ---Benign breast parenchyma with markedly dense stromal fibrosis. ---Rare microcalcifications are present within benign breast. OLOGY [id number] GROSS DESCRIPTION Result Comment: A. Breast, R ight, Core Biopsy Received in formalin labeled as right breast are multiple segments of cylindrical tissue aggregating to 1.7 x 1.2 x 1.1 cm, holbrook-white to yellow and of a soft consistency. The specimen was removed from the patient at 11:27 AM on 03/14/2024. On the same day, the specimen was placed in formalin at 11:27 AM. Totally submitted in formalin in one cassette. Gross examination performed at [facility], [address] [place], [place] [id number] March 14, 2024 5:32 PM PATHOLOGY [facility] FINAL PERFORMING LAB Result Comment: Diagnostic i nterpretation performed at [place] [address] CLIA# [id number] Lumber Tailer: Gregg Pino M.D. Performed By: #### S #### [facility] CLIA [id number] [address] [place] [address] DESK [id number] [id number] [facility] PROGRESS Observed: 03/14/2024 11:00 AM Status: COMPLETED Source: [facility] HNO ID: [id number] Author: PATRICE MORSE RT(Lucia) Service: ? Author Type: Technologist Type: Progress Notes Filed: 03/14/2024 11:46 Note Text: Radiology Service Progress Note PATIENT NAME: Jyoti Thao DATE OF SERVICE: March 14, 2024 TIME: 11:46 AM PATIENT IDENTITY VERIFICATION COMPLETED USING TWO (2) IDENTIFIERS: Name and Date of confirmed by patient verbally. FALL SCREENING: Has the patient had 2 falls in the last year or 1 fall with injury or currently using an Ambulatory Assistive Device (Walker, Cane, Wheelchair, Crutches, etc.)? No PATIENT GENDER DATA: Female. status: : No status: NO. PATIENT RELEVANT IMPLANT DATA REVIEWED: Not Applicable PATIENT PRESENTS WITH AN IMPLANTABLE OR ATTACHED RN CARDIOVASCULAR: No RADIOLOGY DEPARTMENT: Mammography PERIPHERAL IV DATA: Not applicable SIGNED BY: RT Jayna(Lucia) March 14, 2024 11:46 AM PROGRESS Observed: 03/08/2024 2:00 PM Status: COMPLETED Source: [facility] HNO ID: [id number] Author: PAULO SINGH MD Service: ? 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 Following additional imaging, including MRI breast bilateral, CT CAP, echocardiogram she will be ready for initiation of neoadjuvant chemotherapy with immunotherapy. Preceding this the patient desired to have an opinion with one of our [facility] breast surgeons and may need lymph node sampling prior to start of therapy. Given TNBCa stage IIA high risk disease, will proceed with neoadjuvant systemic therapy. Neoadjuvant treatment with Keynote 512 - MRI, 4 cycles keytruda Carboplatin + taxol - MRI - 4 cycles keytruda AC MRI then surgery. Her genetic testing was negative. Appears to have good response with 2 cycles of therapy on examination of right breast. Completed Keytruda in February 2024 and has had right lumpectomy mid-October 2023. Unfortunately, she has an abnormality that will need biopsied in the right breast that is a possible recurrence. PLAN: Proceed with final IV Keytruda (400 mg) Thyroid ultrasound in 1-2 months RTC in 12 weeks - may change depending on biopsy results Labs with port, exam HPI: CASE HISTORY: Reverse Chronological Order 02/21/2024 - Diagnostic Mammogram AND Ultrasound: Mammogram: Finding 1: Irregular mass in the right breast is suspicious of malignancy. An ultrasound guided biopsy is recommended. Findings were discussed with the patient at the time of examination. Finding 2: Calcifications in the left breast are probably benign. Follow-up in 6 months is recommended. Finding 3: Biopsy marker clips in both breasts are benign. BI-RADS Category 4: Suspicious Ultrasound: Finding 1: Ultrasound demonstrates an irregular mass measuring 1.0 x 0.8 x 0.9cm in the right breast at 11 o'clock located 4 cm from the nipple. Internal echotexture is hypoechoic. Color flow imaging demonstrates vascularity is not present. The ipsilateral axilla was surveyed, and no abnormal lymph nodes were visible. 12/20/2023-01/19/2024 - Radiation to right breast 11/02/2023 - Right breast lumpectomy: A. Right axillary sentinel lymph node, excision: - One lymph node, negative for carcinoma (0/1). B. Right breast, lumpectomy: - Residual invasive ductal carcinoma with treatment effect, see comment and synoptic report. - Prior biopsy site, biopsy clip, and Marianela shipping processor device. C, D, E, F, G, H. Right breast, multiple margins, excision: - The final inked margin is negative for carcinoma. ER-, CO-, HER2- 10/27/2023-03/08/2024 - Keytruda 400mg q 6 weeks 10/26/2023 - Infrared activated electromagnetic reflector device placement for the mass in the right breast at 12 o'clock middle depth 5 cm from the nipple 10/12/2023 - MRI Breast: Continued interval treatment response to neoadjuvant systemic therapy of the known biopsy-proven malignancy in the 12:00 right breast, now measuring 8 mm (with previous serial measurements as above). No suspicious areas of enhancement in the left breast. No lymphadenopathy. Mild motion limitations. 09/26/2023 - US Extremity Nonvascular LT: 2 indeterminate hyperechogenic left axillary lesions measuring 0.7 and 0.6 cm. In light of the patient's invasive ductal carcinoma, metastatic disease to lymph nodes should be considered. 07/07/2023-09/15/2023 - 4 cycles A/C + Keytruda q 21 days 07/01/2023 - MRI Breast: BI-RADS 6 - Known Malignancy. Right Breast: 1.5 cm irregular enhancing mass in the right breast at 12:00 anterior depth corresponds with patient's known site of malignancy. This previously measured 2.2 cm in maximum dimension. 03/17/2023-06/10/2023 - 4 cycles days 1, 8, 15 q 21 days Carboplatin / Taxol / Keytruda 03/15/2023 - MRI Breast: 2.2 cm spiculated enhancing mass in the 12:00 anterior depth-middle depth right breast at site of biopsy-proven malignancy. No other definite suspicious areas of enhancement in either breast. No lymphadenopathy. 03/10/2023 - USG breast bx 2nd right breast lesion: - Negative for additional malignancy 03/09/2023 - CT CAP: Negative for metastatic disease. Hepatic steatosis. 01/20/2023 - Right breast mass biopsy: - Invasive ductal carcinoma grade 3 ER 0, CO 0 HER2 1+ by IHC negative. 01/20/2023 - Post-biopsy diagnostic mammography metallic marker placed in targeted location within the upper outer quadrant right breast. 01/17/2023 - Diagnostic Mammography: Right breast category 4 suspicious for malignancy US demonstrates bilobed hypoechoic mass with acoustic shadowing smaller component measuring 5.9 mm connected to a larger deeper 8.3 mm lesion with a connecting stalk measuring 2.3 mm. 12/2022 - Mid December felt a lump in her right breast 07/2022 - Normal mammogram Updated Visit, March 08, 2024: Jyoti Hdz returns for her final Keytruda infusion. She had a mammogram and ultrasound on 02/20, an irregular mass that is suspicious for malignancy was seen in the right breast. She has a biopsy scheduled for next week. She reports she is still fatigued due to radiation. She had a syncopal episode recently. Updated Visit, January 26, 2024: Jyoti Hdz returns today for Keytruda. She completed about 4 weeks of radiation to the right breast. She endorses expected skin changes, although says it is improving. She is also experiencing fatigue. She also mentions she is overdue for an annual thyroid ultrasound, at [facility], to monitor nodules - will order at next visit. Deferred breast exam as Dr. John had recently examined her. Updated Visit, November 18, 2023: Had her right breast surgery and did very well. Pathology with responsive tumor and LN negative. TNBC. Some neuropathy continues. Breast is hard and had some post-op cellulitis that has cleared. Updated Visit, October 27, 2023: Jyoti Hdz returns today with Alex. MRI breast shows continued response to treatment. She developed pustules w/ itching on her arms, chest, AND legs and tingling/burning in her lips. She wonders if this was an allergic reaction so has discontinued some of her medications. She is wearing a cervical collar due to a pinched nerve in her neck. She complains of severe pain and occasional dizziness. She is unable to have an MRI for her neck since she cannot lay on her chest due to her upcoming lumpectomy. Updated Visit, September 08, 2023: Severe cold and sore throat last week causing her to cancel US. Alex called me and I had recommended ER for severe teeth and throat pain. She ended up not going. Continues to have numerous complaints of body aches, anxiety etc. But no definitive illness. Symptoms have resolved, but she would like another week to finish her recovery. Updated Visit, August 18, 2023: Jyoti Thao returns for follow-up and continued treatment. Overall, she is tolerating treatment well. She has been experiencing some tooth sensitivity. She has been using a TENS unit for her foot neuropathy. She denies any fevers, chills, night sweats or signs/symptoms of infection. No bleeding or abnormal bruising. She wishes to proceed with treatment as planned. Updated Visit, July 28, 2023: Jyoti Thao returns for follow-up and continued treatment. Overall, she is tolerating treatment well. She denies cough, shortness of breath and other pulmonary complaints. She denies any skin rashes. 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 She complains of feeling tired with treatment. She denies fevers, chills, night sweats and signs/symptoms of infection. No bleeding or abnormal bruising. Today she expresses some concerns about having her teeth cleaned. Updated Visit, July 07, 2023: Jyoti Hdz returns today with Alex. She has had a cold for a couple weeks, is finally now getting over it. She notes she will start wearing a mask when she goes out. Recent MRI shows response to treatment. Her fingernails and toenails are turning black - side effect of chemo. Also reports neuropathy in her feet and fingertips. Proceeding with C5 today. Updated Visit, May 27, 2023: Jyoti Hdz returns with Alex for follow up and to begin C4 of her treatment. She reports that the hydration has been helping. I encouraged her not to hesitate to reach out if she feels she needs more fluids. We reviewed her labs, which show decreases in blood counts so she is more anemic today. Her chemistries look great. She has not done a self-breast exam since I last saw her, we will conduct another prior to starting Adriamycin. I also will order a breast MRI. She will need education for the new regimen. She reports the only thing bothering her right now is some mild neuropathy in her toes, and some random brief shooting pains in her legs and feet. Her BGs have been running on average in the 150s-160s, with some days in the 130s. We briefly discussed possible timeline for finishing out her treatment course and what she will decide for her surgery. Updated Visit, April 29, 2023: Jyoti Hdz returns today with Alex for follow up. She is having a [...] a lot of fluids. Has seen the operation research analyst. Even though she does not necessarily feel nauseous, her stomach pain may be a different manifestation of nausea, so she should consider taking her antiemetic anyway when she needs to eat. She is also having bowel troubles with using the bathroom, she is having frequent diarrhea. Tried Imodium but this madeher very constipated for several days and she [...] today for follow up accompanied by her Alex. She has lost the rest of her [...] already. Updated Visit, April 04, 2023: Jyoti Thao received cycle 1 day 1 carboplatin, Taxol [...] Updated Visit, March 17, 2023: Here with Alex. Is Tu Cruz's mother. Ready for neoadjuvant treatment given high risk disease. Reviewed MRI, biopsy of second spot was negative. Thoroughly reviewed patients treatment plan. Initial Visit, February 21, 2023: Jyoti Thao presents today Hematology and Oncology evaluation. She is a 67 year old female who has a history of POTS syndrome and is adopted who is [employer] genetic testing is negative. She gives a story of having a normal mammogram in July 2022 and subsequently felt a lump in mid December 2022. She underwent imaging in [facility] and then had a biopsy that [...] with her plans to [place] [facility] and move there this year with her Tim. Despite high risk disease and the need for a protracted course of neoadjuvant chemotherapy according to keynote 512, I think she will be able to get to the cabin multiple times. I reassured her that she appears to have curable disease and indeed she felt better. Although her work-up was initiated locally, she would like to transition her care to [facility] and I will make appropriate referrals. M grandmother Lucio's Mother stroke Birthfather?? Heart attack in 70s REVIEW OF SYSTEMS Per HPI and otherwise negative by full review of organ systems. ECOG PERFORMANCE STATUS: 0 PHYSICAL EXAMINATION: Vitals: BP 149/79 Pulse 90 Temp (Src) 97.1 (Temporal) Resp 18 Ht 5' 5.984 (1.68m) Wt 177 lb 0.5 oz (80.3kg) SpO2 97% BMI 28.59 kg/(m2). Body surface area is 1.93 meters squared. Exam limited to gross visualization where appropriate. Gen.: This is an age-appropriate patient in no acute distress. Head: Appears atraumatic with no visible lesions. Eyes: Pupils equally round and reactive to light, extraocular muscles are intact. Neck: Supple. Respiratory: Appears to be respiring comfortably. Neurologic: Nonfocal to gross visualization. Alert and oriented ?3. Psychiatric: No evidence of inappropriate depression but remains highly anxious. Skin: Visible areas of skin without lesions, wounds or petechiae. Erythematous blanching rash on her forearms and around the port on her chest, will monitor. Prior exams for reference: Chaperoned Breast Exam September 08, 2023 (Tesha Evangelista) : Right breast is tender but no discreet masses, Left breast is mildly tender and normal. Socorro exam is negative bilaterally. Chaperoned Breast Exam July 07, 2023 (Sara Clinton) : Right breast is tender but no discreet masses, Left breast is mildly tender and normal. Socorro exam is negative bilaterally. Chaperoned Breast Exam April 29, 2023 (Sara Clinton) : Right breast shows continued improvement, now lesion measure 0.5 cm, Left breast was not examined. Chaperoned Breast Exam April 08, 2023 (Evan Lambert): Right breast mass at 12 o' clock just above the NAC definitely feels smaller (approx. 1.5 cm), Left breast is normal. Chaperoned Breast Exam February 21, 2023 (Evan Lambert): Fairly tender right breast with [...] See Comments Aller-Chlor Deconge* Unknown Chlorpheniramine-Ps* Unknown [id number]* Itching Decongest Multi-Act* Other: See Comments Diazepam Other: See Comments sick-headache Diphenhydramine Intolerance Levofloxacin Intolerance Nalbuphine Rash Progesterone Other: See Comments, GI Upset Speeds up metabolism Weight gain and voice hoarse Promethazine Unknown Pseudoephedrine Other: See Comments Other Reaction(s): Hyperactive, severe stimulation Other Reaction(s): Intolerance ANY Decongestant-Hyperactive Pseudoephedrine-Dm-* Intolerance ANY Decongestant-Hyperactive Dpcvnjp-Dfi-Enl Red* Other: See Comments Other Reaction(s): Unknown Tizanidine Hcl Itching, Other: See Comments Morphine Unknown, GI Upset, Vomiting, Other: See Comments Migraine Tramadol Itching, Unknown Tooth sensitivity Only tolerates low dose Only tolerates low dose MEDICATIONS: gabapentin (NEURONTIN) 300 mg capsule Take 1 capsule by mouth three times a day. metFORMIN (GLUCOPHAGE) 500 mg tablet Take 1 tablet by mouth every 12 hours. ondansetron (ZOFRAN) 8 mg tablet Take 1 tablet by mouth every 8 hours as needed for nausea/vomiting. dicyclomine (BENTYL) 20 mg tablet q 8 HR. hyoscyamine sublingual (LEVSIN SL) 0.125 mg DISSOLVE 1 TABLET UNDER THE TONGUE EVERY 6 HOURS NEEDED ibuprofen (MOTRIN) 600 mg tablet Take 400 mg by mouth at bedtime as needed. meclizine (ANTIVERT) 25 mg tab TAKE 1-2 TABLETS BY MOUTH FOUR TIMES A DAY NEEDED FOR DIZZINESS pantoprazole DR (PROTONIX) 40 mg tablet Take 40 mg by mouth once daily. scopolamine (TRANSDERM-SCOP) patch 1.5 mg/72 hr (delivers 1 mg over 3 days) Apply 1 Patch as directed every 72 hours as needed. simvastatin (ZOCOR) 10 mg tablet Take 10 mg by mouth daily at bedtime. triamcinolone acetonide (KENALOG) 0.1 % cream Apply 1 application to affected area once daily. eletriptan (RELPAX) 40 mg tablet TAKE 1 TABLET BY MOUTH AT ONSET OF MODERATE TO SEVERE MIGRAINE. MAY REPEAT DOSE IN 2 HOURS. MAX OF 2 DOSES IN 24 HOURS, 2 DAYS A WEEK levothyroxine (SYNTHROID) 50 mcg tablet Take 50 mcg by mouth once daily. blood sugar diagnostic (LOGIDOC-SolutionsTOUCH VERIO TEST STRIPS) test strip 1 Strip once daily. LABORATORY VALUES: WBC (k/uL) Date Value 03/08/2024 4.69 RBC (m/uL) Date Value 03/08/2024 4.04 Hemoglobin (g/dL) Date Value 03/08/2024 11.9 Hematocrit (%) Date Value 03/08/2024 35.5 (L) MCV (fL) Date Value 03/08/2024 87.9 MCH (pg) Date Value 03/08/2024 29.5 MCHC (g/dL) Date Value 03/08/2024 33.5 RDW-CV (%) Date Value 03/08/2024 13.4 Platelet Count (k/uL) Date Value 03/08/2024 263 MPV (fL) Date Value 03/08/2024 9.2 Glucose (mg/dL) Date Value 03/08/2024 222 (H) BUN (mg/dL) Date Value 03/08/2024 16 Creatinine (mg/dL) Date Value 03/08/2024 0.86 Sodium (mmol/L) Date Value 03/08/2024 133 (L) Potassium (mmol/L) Date Value 03/08/2024 4.2 Chloride (mmol/L) Date Value 03/08/2024 98 CO2 (mmol/L) Date Value 03/08/2024 25 Protein, Total (g/dL) Date Value 03/08/2024 6.7 Albumin (g/dL) Date Value 03/08/2024 4.1 Calcium, Total (mg/dL) Date Value 03/08/2024 9.3 Alkaline Phosphatase (U/L) Date Value 03/08/2024 130 (H) Bilirubin, Total (mg/dL) Date Value 03/08/2024 0.3 AST (U/L) Date Value 03/08/2024 16 ALT (U/L) Date Value 03/08/2024 14 DIAGNOSIS: (C50.411, Z17.0) Malignant neoplasm of upper-outer quadrant of right breast in female, estrogen receptor positive (HCC) (primary encounter diagnosis) (E04.1) Thyroid nodule Plan: US THYROID/PARATHYROID (R79.9) Abnormal blood chemistry (Z29.89) Immunotherapy (E06.9) Thyroiditis PAST MEDICAL HISTORY Diagnosis Date Anemia Arthritis Breast cancer (HCC) Diabetes (HCC) Diverticulitis of colon Salty Bolton virus infection Essential (primary) hypertension Fibrocystic breast GERD (gastroesophageal reflux disease) Hyperlipidemia Hypothyroidism IBS (irritable bowel syndrome) Malignant neoplasm of upper-outer quadrant of right breast in female, estrogen receptor positive (HCC) 02/21/2023 Migraines Nausea without vomiting 04/30/2021 PONV (postoperative nausea and vomiting) 10/21/2023 POTS (postural orthostatic tachycardia syndrome) Small bowel [...] Discectomy PAST SURGICAL HISTORY OF Mass excision right axilla (benign) PAST SURGICAL HISTORY OF Small bowel resection SINUS SURGERY HX SMALL INTESTINE SURGERY HX TONSILLECTOMY HX UNLISTED STOMACH SURGERY Removal stomach polyps VAGINAL HYSTERECTOMY with appendectomy, Meckel's diverticulectomy Social History Tobacco Use Smoking status: Former Current packs/day: 0.00 Types: Cigarettes Quit date: 2017 Years since quittin.8 Passive exposure: Past Smokeless tobacco: Never Tobacco comments: quit smoking in 2014, on and off, 1/3 ppd at most Vaping Use Vaping status: Never Used Substance Use Topics Alcohol use: Not Currently Comment: rarely Drug use: Never FAMILY HISTORY Adopted: Yes Problem Relation Age of Onset Stroke Mother other (addisons) Maternal Grandmother I spent a total of 30 minutes on the date of service which included preparing to see the patient, [id number] patient care, completing clinical documentation, performing a medically appropriate examination, counseling and educating the patient/family/caregiver, ordering medications, tests, or procedures, independently interpreting results (not separately reported), communicating results to the patient/family/caregiver, and care coordination (not separately reported). Paulo Singh MD, CPE Hematology and Oncology Services Provided at: [place], [place] Scribe Attestation: This note was scribed by Renu Sidhu on March 08, 2024 under the direction and supervision of Dr. Paulo Singh. I attest that all of the information documented is correct to the best of my knowledge. Provider Attestation: I, Paulo Singh MD, attest that all information documented by the above scribe is correct, and was supervised by me and under my direction. CC: Dr. Zeke Joaquin [address] [id number] [address] Makeda Osei [address] [facility] [id number] [address] Rosalba John CNOVSP Observed: 03/08/2024 2:00 PM Status: COMPLETED Source: [facility] Visit (SP) Office ([place]) JYOTI THAO ([id number]) 1955 F Date Time Provider Department 03/08/24 2:00 PM PAULO SINGH During your visit today, we recorded the following information about you: Temperature Pulse Respiration Blood pressure 97.1 degrees 90/minute 18/minute 149/79 Weight Height 80.3 kg 1.676 m Paulo Singh MD 03/09/2024 8:18 PM Signed NAME: Jyoti Thao CLINIC NO.: [id number] DATE OF SERVICE: March 08, 2024 (Lenny) Some elements in this clinic note that are critical to medical decision making have been carefully reviewed and included from a prior clinic note dated: January 26, 2024 (Lenny) Referring Provider: Alfa Joaquin Additional Clinicians involved in Jyoti Thao's care: Abisai Chandra DIAGNOSIS: TNBC - right breast ASSESSMENT: 68 year old woman with 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 Following additional imaging, including MRI breast bilateral, CT CAP, echocardiogram she will be ready for initiation of neoadjuvant chemotherapy with immunotherapy. Preceding this the patient desired to have an opinion with one of our [facility] breast surgeons and may need lymph node sampling prior to start of therapy. Given TNBCa stage IIA high risk disease, will proceed with neoadjuvant systemic therapy. Neoadjuvant treatment with Keynote 512 - MRI, 4 cycles keytruda Carboplatin + taxol - MRI - 4 cycles keytruda AC MRI then surgery. Her genetic testing was negative. Appears to have good response with 2 cycles of therapy on examination of right breast. Completed Keytruda in February 2024 and has had right lumpectomy mid-October 2023. Unfortunately, she has an abnormality that will need biopsied in the right breast that is a possible recurrence. PLAN: Proceed with final IV Keytruda (400 mg) Thyroid ultrasound in 1-2 months RTC in 12 weeks - may change depending on biopsy results Labs with port, exam - HPI: CASE HISTORY: Reverse Chronological Order 02/21/2024 - Diagnostic Mammogram AND Ultrasound: Mammogram: Finding 1: Irregular mass in the right breast is suspicious of malignancy. An ultrasound guided biopsy is recommended. Findings were discussed with the patient at the time of examination. Finding 2: Calcifications in the left breast are probably benign. Follow-up in 6 months is recommended. Finding 3: Biopsy marker clips in both breasts are benign. BI-RADS Category 4: Suspicious Ultrasound: Finding 1: Ultrasound demonstrates an irregular mass measuring 1.0 x 0.8 x 0.9cm in the right breast at 11 o'clock located 4 cm from the nipple. Internal echotexture is hypoechoic. Color flow imaging demonstrates vascularity is not present. The ipsilateral axilla was surveyed, and no abnormal lymph nodes were visible. 12/20/2023-01/19/2024 - Radiation to right breast 11/02/2023 - Right breast lumpectomy: A. Right axillary sentinel lymph node, excision: - One lymph node, negative for carcinoma (0/1). B. Right breast, lumpectomy: - Residual invasive ductal carcinoma with treatment effect, see comment and synoptic report. - Prior biopsy site, biopsy clip, and Marianela shipping processor device. C, D, E, F, G, H. Right breast, multiple margins, excision: - The final inked margin is negative for carcinoma. ER-, CO-, HER2- 10/27/2023-03/08/2024 - Keytruda 400mg q 6 weeks 10/26/2023 - Infrared activated electromagnetic reflector device placement for the mass in the right breast at 12 o'clock middle depth 5 cm from the nipple 10/12/2023 - MRI Breast: Continued interval treatment response to neoadjuvant systemic therapy of the known biopsy-proven malignancy in the 12:00 right breast, now measuring 8 mm (with previous serial measurements as above). No suspicious areas of enhancement in the left breast. No lymphadenopathy. Mild motion limitations. 09/26/2023 - US Extremity Nonvascular LT: 2 indeterminate hyperechogenic left axillary lesions measuring 0.7 and 0.6 cm. In light of the patient's invasive ductal carcinoma, metastatic disease to lymph nodes should be considered. 07/07/2023-09/15/2023 - 4 cycles A/C + Keytruda q 21 days 07/01/2023 - MRI Breast: BI-RADS 6 - Known Malignancy. Right Breast: 1.5 cm irregular enhancing mass in the right breast at 12:00 anterior depth corresponds with patient's known site of malignancy. This previously measured 2.2 cm in maximum dimension. 03/17/2023-06/10/2023 - 4 cycles days 1, 8, 15 q 21 days Carboplatin / Taxol / Keytruda 03/15/2023 - MRI Breast: 2.2 cm spiculated enhancing mass in the 12:00 anterior depth-middle depth right breast at site of biopsy-proven malignancy. No other definite suspicious areas of enhancement in either breast. No lymphadenopathy. 03/10/2023 - USG breast bx 2nd right breast lesion: - Negative for additional malignancy 03/09/2023 - CT CAP: Negative for metastatic disease. Hepatic steatosis. 01/20/2023 - Right breast mass biopsy: - Invasive ductal carcinoma grade 3 ER 0, CO 0 HER2 1+ by IHC negative. 01/20/2023 - Post-biopsy diagnostic mammography metallic marker placed in targeted location within the upper outer quadrant right breast. 01/17/2023 - Diagnostic Mammography: Right breast category 4 suspicious for malignancy US demonstrates bilobed hypoechoic mass with acoustic shadowing smaller component measuring 5.9 mm connected to a larger deeper 8.3 mm lesion with a connecting stalk measuring 2.3 mm. 12/2022 - Mid December felt a lump in her right breast 07/2022 - Normal mammogram Updated Visit, March 08, 2024: Jyoti Hdz returns for her final Keytruda infusion. She had a mammogram and ultrasound on 02/20, an irregular mass that is suspicious for malignancy was seen in the right breast. She has a biopsy scheduled for next week. She reports she is still fatigued due to radiation. She had a syncopal episode recently. Updated Visit, January 26, 2024: Jyoti Hdz returns today for Keytruda. She completed about 4 weeks of radiation to the right breast. She endorses expected skin changes, although says it is improving. She is also experiencing fatigue. She also mentions she is overdue for an annual thyroid ultrasound, at [facility], to monitor nodules - will order at next visit. Deferred breast exam as Dr. John had recently examined her. Updated Visit, November 18, 2023: Had her right breast surgery and did very well. Pathology with responsive tumor and LN negative. TNBC. Some neuropathy continues. Breast is hard and had some post-op cellulitis that has cleared. Updated Visit, October 27, 2023: Jyoti Hdz returns today with Alex. MRI breast shows continued response to treatment. She developed pustules w/ itching on her arms, chest, AND legs and tingling/burning in her lips. She wonders if this was an allergic reaction so has discontinued some of her medications. She is wearing a cervical collar due to a pinched nerve in her neck. She complains of severe pain and occasional dizziness. She is unable to have an MRI for her neck since she cannot lay on her chest due to her upcoming lumpectomy. Updated Visit, September 08, 2023: Severe cold and sore throat last week causing her to cancel US. Alex called me and I had recommended ER for severe teeth and throat pain. She ended up not going. Continues to have numerous complaints of body aches, anxiety etc. But no definitive illness. Symptoms have resolved, but she would like another week to finish her recovery. Updated Visit, August 18, 2023: Jyoti Thao returns for follow-up and continued treatment. Overall, she is tolerating treatment well. She has been experiencing some tooth sensitivity. She has been using a TENS unit for her foot neuropathy. She denies any fevers, chills, night sweats or signs/symptoms of infection. No bleeding or abnormal bruising. She wishes to proceed with treatment as planned. Updated Visit, July 28, 2023: Jyoti Thao returns for follow-up and continued treatment. Overall, she is tolerating treatment well. She denies cough, shortness of breath and other pulmonary complaints. She denies any skin rashes. 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 She complains of feeling tired with treatment. She denies fevers, chills, night sweats and signs/symptoms of infection. No bleeding or abnormal bruising. Today she expresses some concerns about having her teeth cleaned. Updated Visit, July 07, 2023: Jyoti Hdz returns today with Alex. She has had a cold for a couple weeks, is finally now getting over it. She notes she will start wearing a mask when she goes out. Recent MRI shows response to treatment. Her fingernails and toenails are turning black - side effect of chemo. Also reports neuropathy in her feet and fingertips. Proceeding with C5 today. Updated Visit, May 27, 2023: Jyoti Hdz returns with Alex for follow up and to begin C4 of her treatment. She reports that the hydration has been helping. I encouraged her not to hesitate to reach out if she feels she needs more fluids. We reviewed her labs, which show decreases in blood counts so she is more anemic today. Her chemistries look great. She has not done a self-breast exam since I last saw her, we will conduct another prior to starting Adriamycin. I also will order a breast MRI. She will need education for the new regimen. She reports the only thing bothering her right now is some mild neuropathy in her toes, and some random brief shooting pains in her legs and feet. Her BGs have been running on average in the 150s-160s, with some days in the 130s. We briefly discussed possible timeline for finishing out her treatment course and what she will decide for her surgery. Updated Visit, April 29, 2023: Jyoti Hdz returns today with Alxe for follow up. She is having a [...] a lot of fluids. Has seen the operation research analyst. Even though she does not necessarily feel [...] today for follow up accompanied by her Alex. She has lost the rest of her [...] already. Updated Visit, April 04, 2023: Jyoti Thao received cycle 1 day 1 carboplatin, Taxol [...] Updated Visit, March 17, 2023: Here with Alex. Is Tu Cruz's mother. Ready for neoadjuvant treatment given high risk disease. Reviewed MRI, biopsy of second spot was negative. Thoroughly reviewed patients treatment plan. Initial Visit, February 21, 2023: Jyoti Thao presents today Hematology and Oncology evaluation. She is a 67 year old female who has a history of POTS syndrome and is adopted who is [employer] genetic testing is negative. She gives a story of having a normal mammogram in July 2022 and subsequently felt a lump in mid December 2022. She underwent imaging in [facility] and then had a biopsy that [...] this interferes with her plans to buy [employer] [facility] [place] [facility] and move there this year with her Tim. Despite high risk disease and the need for a protracted course of neoadjuvant chemotherapy according to keynote 512, I think she will be able to get to the [employer] multiple times. I reassured her that she appears to have curable disease and indeed she felt better. Although her work-up was initiated locally, she would like to transition her care to [facility] and I will make appropriate referrals. M grandmother Lucio's Mother stroke Birthfather?? Heart attack in 70s - REVIEW OF SYSTEMS Per HPI and otherwise negative by full review of organ systems. - ECOG PERFORMANCE STATUS: 0 PHYSICAL EXAMINATION: Vitals: BP 149/79 Pulse 90 Temp (Src) 97.1 (Temporal) Resp 18 Ht 5' 5.984 (1.68m) Wt 177 lb 0.5 oz (80.3kg) SpO2 97% BMI 28.59 kg/(m2). Body surface area is 1.93 meters squared. Exam limited to gross visualization where appropriate. Gen.: This is an age-appropriate patient in no acute distress. Head: Appears atraumatic with no visible lesions. Eyes: Pupils equally round and reactive to light, extraocular muscles are intact. Neck: Supple. Respiratory: Appears to be respiring comfortably. Neurologic: Nonfocal to gross visualization. Alert and oriented ?3. Psychiatric: No evidence of inappropriate depression but remains highly anxious. Skin: Visible areas of skin without lesions, wounds or petechiae. Erythematous blanching rash on her forearms and around the port on her chest, will monitor. Prior exams for reference: Chaperoned Breast Exam September 08, 2023 (Tesha Evangelista) : Right breast is tender but no discreet masses, Left breast is mildly tender and normal. Socorro exam is negative bilaterally. Chaperoned Breast Exam July 07, 2023 (Sara Clinton) : Right breast is tender but no discreet masses, Left breast is mildly tender and normal. Socorro exam is negative bilaterally. Chaperoned Breast Exam April 29, 2023 (Sara Clinton) : Right breast shows continued improvement, now lesion measure 0.5 cm, Left breast was not examined. Chaperoned Breast Exam April 08, 2023 (Evan Lambert): Right breast mass at 12 o' clock just above the NAC definitely feels smaller (approx. 1.5 cm), Left breast is normal. Chaperoned Breast Exam February 21, 2023 (Evan Lambert): Fairly tender right breast with a 3 cm dense nodule just above the areola in the 11 o'clock position approximately 1 cm from the nipple. She has a secondary small nodule adjacent and more medial but otherwise breast is largely benign and actually socorro examination is negative. - ALLERGIES: ALLERGIES Allergen Reactions Hydrocodone Other: See Comments, GI Upset Headaches Oxycodone GI Upset Can take 1/2 tab, but full tab makes her sick 12 Hour Cold Capsule Intolerance Adhesive Other: See Comments Aller-Chlor Deconge* Unknown Chlorpheniramine-Ps* Unknown Ogi-Lmsrmbfbe-Ajthd* Itching Decongest Multi-Act* Other: See Comments Diazepam Other: See Comments sick-headache Diphenhydramine Intolerance Levofloxacin Intolerance Nalbuphine Rash Progesterone Other: See Comments, GI Upset Speeds up metabolism Weight gain and voice hoarse Promethazine Unknown Pseudoephedrine Other: See Comments Other Reaction(s): Hyperactive, severe stimulation Other Reaction(s): Intolerance ANY Decongestant-Hyperactive Pseudoephedrine-Dm-* Intolerance ANY Decongestant-Hyperactive Ebtnacq-Hgf-Oef Red* Other: See Comments Other Reaction(s): Unknown Tizanidine Hcl Itching, Other: See Comments Morphine Unknown, GI Upset, Vomiting, Other: See Comments Migraine Tramadol Itching, Unknown Tooth sensitivity Only tolerates low dose Only tolerates low dose MEDICATIONS: gabapentin (NEURONTIN) 300 mg capsule Take 1 capsule by mouth three times a day. metFORMIN (GLUCOPHAGE) 500 mg tablet Take 1 tablet by mouth every 12 hours. ondansetron (ZOFRAN) 8 mg tablet Take 1 tablet by mouth every 8 hours as needed for nausea/vomiting. dicyclomine (BENTYL) 20 mg tablet q 8 HR. hyoscyamine sublingual (LEVSIN SL) 0.125 mg DISSOLVE 1 TABLET UNDER THE TONGUE EVERY 6 HOURS NEEDED ibuprofen (MOTRIN) 600 mg tablet Take 400 mg by mouth at bedtime as needed. meclizine (ANTIVERT) 25 mg tab TAKE 1-2 TABLETS BY MOUTH FOUR TIMES A DAY NEEDED FOR DIZZINESS pantoprazole DR (PROTONIX) 40 mg tablet Take 40 mg by mouth once daily. scopolamine (TRANSDERM-SCOP) patch 1.5 mg/72 hr (delivers 1 mg over 3 days) Apply 1 Patch as directed every 72 hours as needed. simvastatin (ZOCOR) 10 mg tablet Take 10 mg by mouth daily at bedtime. triamcinolone acetonide (KENALOG) 0.1 % cream Apply 1 application to affected area once daily. eletriptan (RELPAX) 40 mg tablet TAKE 1 TABLET BY MOUTH AT ONSET OF MODERATE TO SEVERE MIGRAINE. MAY REPEAT DOSE IN 2 HOURS. MAX OF 2 DOSES IN 24 HOURS, 2 DAYS A WEEK levothyroxine (SYNTHROID) 50 mcg tablet Take 50 mcg by mouth once daily. blood sugar diagnostic (ONETOUCH VERIO TEST STRIPS) test strip 1 Strip once daily. - LABORATORY VALUES: WBC (k/uL) Date Value 03/08/2024 4.69 RBC (m/uL) Date Value 03/08/2024 4.04 Hemoglobin (g/dL) Date Value 03/08/2024 11.9 Hematocrit (%) Date Value 03/08/2024 35.5 (L) MCV (fL) Date Value 03/08/2024 87.9 MCH (pg) Date Value 03/08/2024 29.5 MCHC (g/dL) Date Value 03/08/2024 33.5 RDW-CV (%) Date Value 03/08/2024 13.4 Platelet Count (k/uL) Date Value 03/08/2024 263 MPV (fL) Date Value 03/08/2024 9.2 Glucose (mg/dL) Date Value 03/08/2024 222 (H) BUN (mg/dL) Date Value 03/08/2024 16 Creatinine (mg/dL) Date Value 03/08/2024 0.86 Sodium (mmol/L) Date Value 03/08/2024 133 (L) Potassium (mmol/L) Date Value 03/08/2024 4.2 Chloride (mmol/L) Date Value 03/08/2024 98 CO2 (mmol/L) Date Value 03/08/2024 25 Protein, Total (g/dL) Date Value 03/08/2024 6.7 Albumin (g/dL) Date Value 03/08/2024 4.1 Calcium, Total (mg/dL) Date Value 03/08/2024 9.3 Alkaline Phosphatase (U/L) Date Value 03/08/2024 130 (H) Bilirubin, Total (mg/dL) Date Value 03/08/2024 0.3 AST (U/L) Date Value 03/08/2024 16 ALT (U/L) Date Value 03/08/2024 14 - DIAGNOSIS: (C50.411, Z17.0) Malignant neoplasm of upper-outer quadrant of right breast in female, estrogen receptor positive (HCC) (primary encounter diagnosis) (E04.1) Thyroid nodule Plan: US THYROID/PARATHYROID (R79.9) Abnormal blood chemistry (Z29.89) Immunotherapy (E06.9) Thyroiditis PAST MEDICAL HISTORY Diagnosis Date Anemia Arthritis Breast cancer (HCC) Diabetes (HCC) Diverticulitis of colon Salty Bolton virus infection Essential (primary) hypertension Fibrocystic breast GERD (gastroesophageal reflux disease) Hyperlipidemia Hypothyroidism IBS (irritable bowel syndrome) Malignant neoplasm of upper-outer quadrant of right breast in female, estrogen receptor positive (HCC) 02/21/2023 Migraines Nausea without vomiting 04/30/2021 PONV (postoperative nausea and vomiting) 10/21/2023 POTS (postural orthostatic tachycardia syndrome) Small bowel [...] Discectomy PAST SURGICAL HISTORY OF Mass excision right axilla (benign) PAST SURGICAL HISTORY OF Small bowel resection SINUS SURGERY HX SMALL INTESTINE SURGERY HX TONSILLECTOMY HX UNLISTED STOMACH SURGERY Removal stomach polyps VAGINAL HYSTERECTOMY with appendectomy, Meckel's diverticulectomy Social History Tobacco Use Smoking status: Former Current packs/day: 0.00 Types: Cigarettes Quit date: 2016 Years since quittin.8 Passive exposure: Past Smokeless tobacco: Never Tobacco comments: quit smoking in 2015, on and off, 1/3 ppd at most Vaping Use Vaping status: Never Used Substance Use Topics Alcohol use: Not Currently Comment: rarely Drug use: Never FAMILY HISTORY Adopted: Yes Problem Relation Age of Onset Stroke Mother other (addisons) Maternal Grandmother I spent a total of 30 minutes on the date of service which included preparing to see the patient, ihso-rl-vyiw patient care, completing clinical documentation, performing a medically appropriate examination, counseling and educating the patient/family/caregiver, ordering medications, tests, or procedures, independently interpreting results (not separately reported), communicating results to the patient/family/caregiver, and care coordination (not separately reported). Paulo Singh MD, CPE [facility] Provided at: [place], [place] Scribe Attestation: This note was scribed by Renu Sidhu on March 08, 2024 under the direction and supervision of Dr. Paulo Singh. I attest that all of the information documented is correct to the best of my knowledge. Provider Attestation: I, Paulo Singh MD, attest that all information documented by the above scribe is correct, and was supervised by me and under my direction. CC: Dr. Zeke Joaquin [address] [id number] [address] Makeda Osei [address] [facility] [id number] 03/08/2024 2:03 PM Signed Proceed with final IV Keytruda (400 mg) Thyroid ultrasound in 1-2 months RTC in 12 weeks - may change depending on biopsy results Labs with port, exam Referring Provider: PAULO SINGH [[id number]] Allergies As of Date: 03/08/2024 Noted Allergy Reaction HYDROCODONE 02/10/2018 14 - Other: See Comments 8 - GI Upset Comments: Headaches OXYCODONE 04/18/2018 8 - GI Upset Comments: Can take 1/2 tab, but full tab makes her sick 12 HOUR COLD CAPSULE 11/05/2019 5 - Intolerance ADHESIVE 03/01/2022 14 - Other: See Comments ALLER-CHLOR DECONGESTANT 03/01/2022 16 - Unknown CHLORPHENIRAMINE-PSEUDOEPHED 02/21/2023 16 - Unknown [id number] 09/08/2017 9 - Itching DECONGEST MULTI-ACTION 12/03/2019 [...] severe stimulation Other Reaction(s): Intolerance ANY Decongestant-Hyperactive MPVWTORCMOLZXMF-CL-CDGWKJAATWT 04/02/2019 5 - Intolerance Comments: ANY Decongestant-Hyperactive VIQJECX-PLQ-LCA REDUCTASE INHIBIT*08/24/2021 14 - Other: See Comments Comments: Other Reaction(s): Unknown TIZANIDINE HCL 09/30/2023 9 - Itching 14 - Other: See Comments MORPHINE 07/05/2011 16 - Unknown 8 - GI Upset 11 - Vomiting 14 - Other: See Comments Comments: Migraine TRAMADOL 09/05/2013 9 - Itching 16 - Unknown Comments: Tooth sensitivity Only tolerates low dose Only tolerates low dose Date Reviewed: 03/08/2024 Reviewed by: Divya Davies MA - Fully Assessed Reason for Visit: Breast Cancer [519] Primary Visit Diagnosis:Malignant neoplasm of upper-outer quadrant of right breast in female, estrogen receptor positive (HCC) [C50.411, Z17.0] Other Visit Diagnoses:Thyroid nodule [E04.1] Abnormal blood chemistry [R79.9] Immunotherapy [Z29.89] Thyroiditis [E06.9] Order(s):US THYROID/PARATHYROID [8603711] Order #: [id number] FUTURE Level of Service: OFFICE/OUTPATIENT ESTABLISHED MOD MDM 30 MIN [16848] Additional E/M codes: VISIT CPLX INHERENT EANDM ASSOC WITH MED * Disposition: Return in about 12 weeks (around 05/31/2024). Follow-up and Disposition History for Encounter Date Provider Department Center 03/08/2024 [id number] SINGH [place] Prescriptions as of 03/09/2024 - gabapentin (NEURONTIN) 300 mg capsule Take 1 capsule by mouth three times a day. - metFORMIN (GLUCOPHAGE) 500 mg tablet Take 1 tablet by mouth every 12 hours. - ondansetron (ZOFRAN) 8 mg tablet Take 1 tablet by mouth every 8 hours as needed for nausea/vomiting. - dicyclomine (BENTYL) 20 mg tablet q 8 HR. - hyoscyamine sublingual (LEVSIN SL) 0.125 mg DISSOLVE 1 TABLET UNDER THE TONGUE EVERY 6 HOURS NEEDED - ibuprofen (MOTRIN) 600 mg tablet Take 400 mg by mouth at bedtime as needed. - meclizine (ANTIVERT) 25 mg tab TAKE 1-2 TABLETS BY MOUTH FOUR TIMES A DAY NEEDED FOR DIZZINESS - pantoprazole DR (PROTONIX) 40 mg tablet Take 40 mg by mouth once daily. - scopolamine (TRANSDERM-SCOP) patch 1.5 mg/72 hr (delivers 1 mg over 3 days) Apply 1 Patch as directed every 72 hours as needed. - simvastatin (ZOCOR) 10 mg tablet Take 10 mg by mouth daily at bedtime. - triamcinolone acetonide (KENALOG) 0.1 % cream Apply 1 application to affected area once daily. - eletriptan (RELPAX) 40 mg tablet TAKE 1 TABLET BY MOUTH AT ONSET OF MODERATE TO SEVERE MIGRAINE. MAY REPEAT DOSE IN 2 HOURS. MAX OF 2 DOSES IN 24 HOURS, 2 DAYS A WEEK - levothyroxine (SYNTHROID) 50 mcg tablet Take 50 mcg by mouth once daily. - blood sugar diagnostic (LOGIDOC-SolutionsTOUCH VERIO TEST STRIPS) test strip 1 Strip once daily. Problem List As Of Date 03/08/2024 Noted Resolved Paraesophageal hernia [K44.9] 02/26/2021 Hiatal hernia with gastroesophageal reflux [K44*01/22/1996 Diabetes type 2, controlled (HCC) [E11.9] 02/14/2017 Mixed hyperlipidemia [E78.2] 07/05/2011 Essential (primary) hypertension [I10] 04/27/2021 Postural orthostatic tachycardia syndrome [G90.*10/24/2017 Migraine [G43.909] 04/27/2021 Hiatal hernia [K44.9] 04/29/2021 Obesity, Class I, BMI 30-34.9 [E66.811] 04/30/2021 Nausea without vomiting [R11.0] 04/30/2021 Malignant neoplasm of upper-outer quadrant of r*02/21/2023 Malignant neoplasm of central portion of right *04/29/2023 Immunotherapy [Z29.89] 04/29/2023 Thyroiditis [E06.9] 04/29/2023 Blood glucose elevated [R73.9] 04/29/2023 PONV (postoperative nausea and vomiting) [R11.2*10/21/2023 Other instructions from your clinician: Proceed with final IV Keytruda (400 mg) Thyroid ultrasound in 1-2 months RTC in 12 weeks - may change depending on biopsy results Labs with port, exam Encounter Status:Closed by PAULO SINGH on 03/09/24 CBC W AUTO DIFF BLD Collected: 03/08/2024 1:[address] atus: F Source: [facility] Order Comment: Specimen Type : BLOOD SPECIMEN Ordering Facility: [facility] Address: [address] [place] [address] TYPE CODE TESTS RESULT OUT OF RANGE REFERENCE UNITS LAB 6690-2(LOINC) WBC # Bld Auto 4.69 3.70-11.00 k/uL LAB 789-8(LOINC) RBC # Bld Auto 4.04 3.90-5.20 m/ uL LAB 718-7(LOINC) Hgb Bld-mCnc 11.9 11.5-15.5 g/dL LAB 4544-3(LOINC) Hct VFr Bld Auto 35.5 Low 36.0-46.0 % LAB 787-2(LOINC) MCV RBC Auto 87.9 80.0-100.0 fL LAB 785-6(LOINC) MCH RBC Qn Auto 29.5 26.0-34.0 p g LAB 786-4(LOINC) MCHC RBC Auto-mCnc 33.5 30.5-36.0 g/dL LAB 09633-2(LOINC) RDW RBC-Rto 13.4 11.5-15.0 % LAB 777-3(LOINC) Platelet # Bld Auto 263 150-400 k/uL LAB 00094-6(LOINC) PMV Bld Auto 9.2 9.0-12.7 fL LAB 770-8([facility]) Neutrophils/leuk NFr Bld Auto 63.4 % LAB 751-8([facility]) Neutrophils # Bld Auto 2.97 1.45-7.50 k/uL LAB 736-9([facility]) Lymphocytes/leuk NFr Bld Auto 24.5 % LAB 731-0([facility]) Lymphocytes # Bld Auto 1.15 1.00-4.00 k/uL LAB 5905-5([facility]) Monocytes/leuk NFr Bld Auto 8.3 % LAB 742-7([facility]) Monocytes # Bld Auto 0.39 <0.87 k/uL LAB 713-8([facility]) Eosinophil/leuk NFr Bld Auto 3.0 % LAB 711-2([facility]) Eosinophil # Bld Auto 0.14 <0.46 k/uL LAB 706-2([facility]) Basophils/leuk NFr Bld Auto 0.4 % LAB 704-7([facility]) Basophils # Bld Auto <0.03 <0.11 k/uL LAB 75784-8([facility]) Imm Granulocytes/dominga k NFr Bld Auto 0.4 % LAB 36286-7([facility]) Imm Granulocytes # Bld Auto <0.03 <0.10 k/uL LAB 53983-7([facility]) nRBC/100 WBC Bld-Rto 0.0 /100 WBC LAB 771-6([facility]) nRBC # Bld Auto <0.01 <0.01 k/u L LAB 17385-0([facility]) Differential method Bld Auto Performed By: #### [id number] # ### [facility] CLIA [id number] [address] [place] [address] COMP METAB 2000 PNL SERPL Collected: 1:26 PM Status: F Source: [facility] Order Comment: Specimen Type : BLOOD SPECIMEN Ordering Facility: [facility] Address: [address] [place] [address] TYPE CODE TESTS RESULT OUT OF RANGE REFERENCE UNITS LAB 2885-2([facility]) Prot SerPl-mCnc 6.7 6.3-8.0 g/dL LAB 1751-7(LOINC) Albumin SerPl-mCnc 4.1 3.9-4.9 g/dL LAB 57799-3(LOINC) Calcium SerPl-mCnc 9.3 8.5-10.2 mg/dL LAB 1975-2(LOINC) Bilirub SerPl-mCnc 0.3 0.2-1.3 mg/dL LAB 6768-6(LOINC) ALP SerPl-cCnc 130 High 34-123 U/L LAB 1920-8(LOINC) AST SerPl-cCnc 16 13-35 U/L LAB 1742-6(LOINC) ALT SerPl-cCnc 14 7-38 U/L LAB 2345-7(LOINC) Glucose SerPl-mCnc 222 High 74-99 mg/dL Result Comment: The [place] [employer] (ADA) provides guidance for cutoff values for fasting glucose and random glucose. The ADA defines fasting as no caloric intake for at least 8 hours. Fasting plasma glucose results between 100 to 125 mg/dL indicate increased risk for diabetes (prediabetes). Fasting plasma glucose results greater than or equal to 126 mg/dL meet the criteria for diagnosis of diabetes. In the absence of unequivocal hyperglycemia, results should be confirmed by repeat testing. In a patient with classic symptoms of hyperglycemia or hyperglycemic crisis, random plasma glucose results greater than or equal to 200 mg/dL meet the criteria for diagnosis of diabetes. Reference: Standards of Medical Care in Diabetes 2016, [place] [employer] Association. Diabetes Care. 2016.39(Suppl 1). LAB 3094-0(LOINC) BUN SerPl-mCnc 16 7-21 mg/ dL LAB 2160-0(LOINC) Creat SerPl-mCnc 0.86 0.58-0.96 mg/dL LAB 2951-2(LOINC) Sodium SerPl-sCnc 133 Low 136-144 mmol/L LAB 2823-3(LOINC) Potassium SerPl-sCnc 4.2 3.7-5.1 mmol/L LAB 2075-0(LOINC) Chloride SerPl-sCnc 98 98-107 mmol/L LAB 2028-9(LOINC) CO2 SerPl-sCnc 25 22-30 mmo l/L LAB 04891-0(LOINC) Anion Gap SerPl-sCnc 10 8-15 mmol/L LAB 55219-7(LOINC) Creatinine + eGFR Pnl SerPlBld 74 >=60 mL/min/1 .73m??? Result Comment: Estimated Gl omerular Filtration Rate (eGFR) is calculated using the 2020 CKD-EPI creatinine equation. This equation utilizes serum creatinine, sex, and age as parameters. The creatinine assay has traceable calibration to isotope dilution-mass spectrometry. Refer to KDIGO guidelines for clinical interpretation. In patients with unstable renal function, e.g. those with acute kidney injury, the eGFR may not accurately reflect actual GFR. Performed By: #### 51674-3 # ### [facility] CLIA [id number] [address] [place] [address] MARK Observed: 03/08/2024 12:00 AM Status: COMPLETED Source: [facility] Telephone (HEMTSA) JYOTI THAO ([id number]) 1955 F Date Time Provider Department 03/08/24 CAMILO LAU During your visit today, we recorded the following information about you: Camilo Lau RN 03/08/2024 3:16 PM Signed Patient notifies that she has had hot flashes on/off since early and after hysterectomy. Couple times prior to this diagnosis she noticed an increase in intensity of the hot flash's, they had become very mild BUT for the past 2 months they have now reoccurred with an increase in frequency and intensity, per patient. She is concerned that this can be an early warning of something else going on especially with her new diagnosis/mass. Advise JEVON Frankel Vivek, MD 03/08/2024 3:24 PM Signed She's getting a biopsy. Allergies As of Date: 03/08/2024 Noted Allergy Reaction HYDROCODONE 02/10/2018 14 - Other: See Comments 8 - GI Upset Comments: Headaches OXYCODONE 04/18/2018 8 - GI Upset Comments: Can take 1/2 tab, but full tab makes her sick 12 HOUR COLD CAPSULE 11/05/2019 5 - Intolerance ADHESIVE 03/01/2022 14 - Other: See Comments ALLER-CHLOR DECONGESTANT 03/01/2022 16 - Unknown CHLORPHENIRAMINE-PSEUDOEPHED 02/21/2023 16 - Unknown [id number] 09/08/2017 9 - Itching DECONGEST MULTI-ACTION 12/03/2019 [...] severe stimulation Other Reaction(s): Intolerance ANY Decongestant-Hyperactive [id number]-KP-[id number] 04/02/2019 5 - Intolerance Comments: ANY Decongestant-Hyperactive BKZWJNN-JGI-MXY REDUCTASE INHIBIT*08/24/2021 14 - Other: See Comments Comments: Other Reaction(s): Unknown TIZANIDINE HCL 09/30/2023 9 - Itching 14 - Other: See Comments MORPHINE 07/05/2011 16 - Unknown 8 - GI Upset 11 - Vomiting 14 - Other: See Comments Comments: Migraine TRAMADOL 09/05/2013 9 - Itching 16 - Unknown Comments: Tooth sensitivity Only tolerates low dose Only tolerates low dose Date Reviewed: 03/08/2024 Reviewed by: Divya Davies MA - Fully Assessed Reason for Visit: Patient Question [7607] HOT FLASHES [Other] Prescriptions as of 03/08/2024 - gabapentin (NEURONTIN) 300 mg capsule Take 1 capsule by mouth three times a day. - metFORMIN (GLUCOPHAGE) 500 mg tablet Take 1 tablet by mouth every 12 hours. - ondansetron (ZOFRAN) 8 mg tablet Take 1 tablet by mouth every 8 hours as needed for nausea/vomiting. - dicyclomine (BENTYL) 20 mg tablet q 8 HR. - hyoscyamine sublingual (LEVSIN SL) 0.125 mg DISSOLVE 1 TABLET UNDER THE TONGUE EVERY 6 HOURS NEEDED - ibuprofen (MOTRIN) 600 mg tablet Take 400 mg by mouth at bedtime as needed. - meclizine (ANTIVERT) 25 mg tab TAKE 1-2 TABLETS BY MOUTH FOUR TIMES A DAY NEEDED FOR DIZZINESS - pantoprazole DR (PROTONIX) 40 mg tablet Take 40 mg by mouth once daily. - scopolamine (TRANSDERM-SCOP) patch 1.5 mg/72 hr (delivers 1 mg over 3 days) Apply 1 Patch as directed every 72 hours as needed. - simvastatin (ZOCOR) 10 mg tablet Take 10 mg by mouth daily at bedtime. - triamcinolone acetonide (KENALOG) 0.1 % cream Apply 1 application to affected area once daily. - eletriptan (RELPAX) 40 mg tablet TAKE 1 TABLET BY MOUTH AT ONSET OF MODERATE TO SEVERE MIGRAINE. MAY REPEAT DOSE IN 2 HOURS. MAX OF 2 DOSES IN 24 HOURS, 2 DAYS A WEEK - levothyroxine (SYNTHROID) 50 mcg tablet Take 50 mcg by mouth once daily. - blood sugar diagnostic (BababooUCH VERIO TEST STRIPS) test strip 1 Strip once daily. Facility-Administered Medications as of 03/08/2024 - NaCl 0.9% iv infusion - diphenhydrAMINE 50 mg injection (BENADRYL) - hydrocortisone sodium succinate (PF) 100 mg injection (Solu-CORTEF) - EPINEPHrine 1 mg/mL (1 mL) 0.3 mg injection - sodium chloride 0.9 % (flush) 10-20 mL (BD POSIFLUSH) Problem List As Of Date 03/08/2024 Noted Resolved Paraesophageal hernia [K44.9] 02/26/2021 Hiatal hernia with gastroesophageal reflux [K44*01/22/1996 Diabetes type 2, controlled (HCC) [E11.9] 02/14/2017 Mixed hyperlipidemia [E78.2] 07/05/2011 Essential (primary) hypertension [I10] 04/27/2021 Postural orthostatic tachycardia syndrome [G90.*10/24/2017 Migraine [G43.909] 04/27/2021 Hiatal hernia [K44.9] 04/29/2021 Obesity, Class I, BMI 30-34.9 [E66.811] 04/30/2021 Nausea without vomiting [R11.0] 04/30/2021 Malignant neoplasm of upper-outer quadrant of r*02/21/2023 Malignant neoplasm of central portion of right *04/29/2023 Immunotherapy [Z29.89] 04/29/2023 Thyroiditis [E06.9] 04/29/2023 Blood glucose elevated [R73.9] 04/29/2023 PONV (postoperative nausea and vomiting) [R11.2*10/21/2023 Encounter Status:Closed by CAMILO LAU on 03/08/24 CNPN Observed: 03/07/2024 12:00 AM Status: COMPLETED Source: [facility] Telephone (HEMASA) JYOTI THAO ([id number]) 1955 F Date Time Provider Department 03/07/24 PAULO SINGH During your visit today, we recorded the following information about you: Yodit Collier MA 03/07/2024 2:57 PM Signed Papers received from [facility] [employer] regarding patient information to assist the patient in their care. LM with patient to see if this is something they are pursuing and would like sent back. GALILEA Galeana Samantha, MA 03/07/2024 3:38 PM Signed Pt approves paperwork to be completed and faxed back to [facility]. Yodit Collier MA Allergies As of Date: 03/07/2024 Noted Allergy Reaction HYDROCODONE 02/10/2018 14 - Other: See Comments 8 - GI Upset Comments: Headaches OXYCODONE 04/18/2018 8 - GI Upset Comments: Can take 1/2 tab, but full tab makes her sick 12 HOUR COLD CAPSULE 11/05/2019 5 - Intolerance ADHESIVE 03/01/2022 14 - Other: See Comments ALLER-CHLOR DECONGESTANT 03/01/2022 16 - Unknown CHLORPHENIRAMINE-PSEUDOEPHED 02/21/2023 16 - Unknown [id number] 09/08/2017 9 - Itching DECONGEST MULTI-ACTION 12/03/2019 [...] severe stimulation Other Reaction(s): Intolerance ANY Decongestant-Hyperactive [id number] 04/02/2019 5 - Intolerance Comments: ANY Decongestant-Hyperactive ZJPSSKQ-CTS-AQU REDUCTASE INHIBIT*08/24/2021 14 - Other: See Comments Comments: Other Reaction(s): Unknown TIZANIDINE HCL 09/30/2023 9 - Itching 14 - Other: See Comments MORPHINE 07/05/2011 16 - Unknown 8 - GI Upset 11 - Vomiting 14 - Other: See Comments Comments: Migraine TRAMADOL 09/05/2013 9 - Itching 16 - Unknown Comments: Tooth sensitivity Only tolerates low dose Only tolerates low dose Date Reviewed: 01/11/2024 Reviewed by: Carrie Slaughter RN - Fully Assessed Reason for Visit: Insurance Wildlife [employer] paperwork [Other] Prescriptions as of 03/07/2024 - gabapentin (NEURONTIN) 300 mg capsule Take 1 capsule by mouth three times a day. - metFORMIN (GLUCOPHAGE) 500 mg tablet Take 1 tablet by mouth every 12 hours. - ondansetron (ZOFRAN) 8 mg tablet Take 1 tablet by mouth every 8 hours as needed for nausea/vomiting. - dicyclomine (BENTYL) 20 mg tablet q 8 HR. - hyoscyamine sublingual (LEVSIN SL) 0.125 mg DISSOLVE 1 TABLET UNDER THE TONGUE EVERY 6 HOURS NEEDED - ibuprofen (MOTRIN) 600 mg tablet Take 400 mg by mouth at bedtime as needed. - meclizine (ANTIVERT) 25 mg tab TAKE 1-2 TABLETS BY MOUTH FOUR TIMES A DAY NEEDED FOR DIZZINESS - pantoprazole DR (PROTONIX) 40 mg tablet Take 40 mg by mouth once daily. - scopolamine (TRANSDERM-SCOP) patch 1.5 mg/72 hr (delivers 1 mg over 3 days) Apply 1 Patch as directed every 72 hours as needed. - simvastatin (ZOCOR) 10 mg tablet Take 10 mg by mouth daily at bedtime. - triamcinolone acetonide (KENALOG) 0.1 % cream Apply 1 application to affected area once daily. - eletriptan (RELPAX) 40 mg tablet TAKE 1 TABLET BY MOUTH AT ONSET OF MODERATE TO SEVERE MIGRAINE. MAY REPEAT DOSE IN 2 HOURS. MAX OF 2 DOSES IN 24 HOURS, 2 DAYS A WEEK - levothyroxine (SYNTHROID) 50 mcg tablet Take 50 mcg by mouth once daily. - blood sugar diagnostic (BababooUCH VERIO TEST STRIPS) test strip 1 Strip once daily. Problem List As Of Date 03/07/2024 Noted Resolved Paraesophageal hernia [K44.9] 02/26/2021 Hiatal hernia with gastroesophageal reflux [K44*01/22/1996 Diabetes type 2, controlled (HCC) [E11.9] 02/14/2017 Mixed hyperlipidemia [E78.2] 07/05/2011 Essential (primary) hypertension [I10] 04/27/2021 Postural orthostatic tachycardia syndrome [G90.*10/24/2017 Migraine [G43.909] 04/27/2021 Hiatal hernia [K44.9] 04/29/2021 Obesity, Class I, BMI 30-34.9 [E66.811] 04/30/2021 Nausea without vomiting [R11.0] 04/30/2021 Malignant neoplasm of upper-outer quadrant of r*02/21/2023 Malignant neoplasm of central portion of right *04/29/2023 Immunotherapy [Z29.89] 04/29/2023 Thyroiditis [E06.9] 04/29/2023 Blood glucose elevated [R73.9] 04/29/2023 PONV (postoperative nausea and vomiting) [R11.2*10/21/2023 Encounter Status:Closed by YODIT COLLIER on 03/07/24 CNPN Observed: 02/22/2024 12:00 AM Status: COMPLETED Source: [facility] Telephone (HEMASA) JYOTI THAO ([id number]) 1955 F Date Time Provider Department 02/22/24 PAULO SINGH During your visit today, we recorded the following information about you: Yodit Collier MA 02/22/2024 11:27 AM Signed FMLA for spouse has been completed and placed in folder to be signed. 6 months intermittent leave. GALILEA Galeana Dorothy, MA 02/24/2024 9:05 AM Signed FMLA forms completed and faxed to [place] at . Divya Davies MA Allergies As of Date: 02/22/2024 Noted Allergy Reaction HYDROCODONE 02/10/2018 14 - Other: See Comments 8 - GI Upset Comments: Headaches OXYCODONE 04/18/2018 8 - GI Upset Comments: Can take 1/2 tab, but full tab makes her sick 12 HOUR COLD CAPSULE 11/05/2019 5 - Intolerance ADHESIVE 03/01/2022 14 - Other: See Comments ALLER-CHLOR DECONGESTANT 03/01/2022 16 - Unknown CHLORPHENIRAMINE-PSEUDOEPHED 02/21/2023 16 - Unknown IZA-[id number]-DHZBYVAAFTWIS 09/08/2017 9 - Itching DECONGEST MULTI-ACTION 12/03/2019 [...] severe stimulation Other Reaction(s): Intolerance ANY Decongestant-Hyperactive [id number] 04/02/2019 5 - Intolerance Comments: ANY Decongestant-Hyperactive KOELVXR-DXV-[id number] REDUCTASE INHIBIT*08/24/2021 14 - Other: See Comments Comments: Other Reaction(s): Unknown TIZANIDINE HCL 09/30/2023 9 - Itching 14 - Other: See Comments MORPHINE 07/05/2011 16 - Unknown 8 - GI Upset 11 - Vomiting 14 - Other: See Comments Comments: Migraine TRAMADOL 09/05/2013 9 - Itching 16 - Unknown Comments: Tooth sensitivity Only tolerates low dose Only tolerates low dose Date Reviewed: 01/11/2024 Reviewed by: Carrie Slaughter RN - Fully Assessed Reason for Visit: [facility] Paperwork [8650] Prescriptions as of 02/24/2024 - gabapentin (NEURONTIN) 300 mg capsule Take 1 capsule by mouth three times a day. - metFORMIN (GLUCOPHAGE) 500 mg tablet Take 1 tablet by mouth every 12 hours. - ondansetron (ZOFRAN) 8 mg tablet Take 1 tablet by mouth every 8 hours as needed for nausea/vomiting. - dicyclomine (BENTYL) 20 mg tablet q 8 HR. - hyoscyamine sublingual (LEVSIN SL) 0.125 mg DISSOLVE 1 TABLET UNDER THE TONGUE EVERY 6 HOURS NEEDED - ibuprofen (MOTRIN) 600 mg tablet Take 400 mg by mouth at bedtime as needed. - meclizine (ANTIVERT) 25 mg tab TAKE 1-2 TABLETS BY MOUTH FOUR TIMES A DAY NEEDED FOR DIZZINESS - pantoprazole DR (PROTONIX) 40 mg tablet Take 40 mg by mouth once daily. - scopolamine (TRANSDERM-SCOP) patch 1.5 mg/72 hr (delivers 1 mg over 3 days) Apply 1 Patch as directed every 72 hours as needed. - simvastatin (ZOCOR) 10 mg tablet Take 10 mg by mouth daily at bedtime. - triamcinolone acetonide (KENALOG) 0.1 % cream Apply 1 application to affected area once daily. - eletriptan (RELPAX) 40 mg tablet TAKE 1 TABLET BY MOUTH AT ONSET OF MODERATE TO SEVERE MIGRAINE. MAY REPEAT DOSE IN 2 HOURS. MAX OF 2 DOSES IN 24 HOURS, 2 DAYS A WEEK - levothyroxine (SYNTHROID) 50 mcg tablet Take 50 mcg by mouth once daily. - blood sugar diagnostic (ONETOUCH VERIO TEST STRIPS) test strip 1 Strip once daily. Problem List As Of Date 02/22/2024 Noted Resolved Paraesophageal hernia [K44.9] 02/26/2021 Hiatal hernia with gastroesophageal reflux [K44*01/22/1996 Diabetes type 2, controlled (HCC) [E11.9] 02/14/2017 Mixed hyperlipidemia [E78.2] 07/05/2011 Essential (primary) hypertension [I10] 04/27/2021 Postural orthostatic tachycardia syndrome [G90.*10/24/2017 Migraine [G43.909] 04/27/2021 Hiatal hernia [K44.9] 04/29/2021 Obesity, Class I, BMI 30-34.9 [E66.811] 04/30/2021 Nausea without vomiting [R11.0] 04/30/2021 Malignant neoplasm of upper-outer quadrant of r*02/21/2023 Malignant neoplasm of central portion of right *04/29/2023 Immunotherapy [Z29.89] 04/29/2023 Thyroiditis [E06.9] 04/29/2023 Blood glucose elevated [R73.9] 04/29/2023 PONV (postoperative nausea and vomiting) [R11.2*10/21/2023 Encounter Status:Closed by IDVYA DAVIES on 02/24/24 [facility] [employer] RT Observed: 12:58 PM Status: F Source: [facility] * * *Final Report* * * DATE OF EXAM: Feb 21 2024 12:58PM [facility] 0594 - [facility] [employer] RT / PROCEDURE REASON: multiple diagnoses * * * * Physician Interpretation * * * * RESULT: [facility] [address] [address] [place] [address] HISTORY: Patient is 68 years old and is seen for diagnostic evaluation of asymptomatic in both breasts. COMPARISON STUDIES: The present examination has been compared to prior imaging studies dated 03/10/2023 (mammogram), 03/10/2023 (ultrasound), 03/10/2023, 03/15/2023 (MRI), 07/01/2023 (MRI) and 10/26/2023 (mammogram). MAMMOGRAM TECHNIQUE: The study was acquired using full field digital technology and interpreted from soft copy. Digital Breast Tomosynthesis (DBT) images were obtained and used to assist in the interpretation of this examination. Computer-aided detection was utilized by the radiologist in the interpretation of this examination. MAMMOGRAM FINDINGS: The breasts are heterogeneously dense, which may obscure small masses. Finding 1: There is an asymmetry with associated post-operative change in the upper outer quadrant of the right breast. Finding 2: There are coarse heterogeneous calcifications with grouped distribution in the lateral left breast. Given differences in technique, calcifications are thought to be present on the 03/10/2023 study however, have demonstrate interval coarsening suggestive of benignity. There are multiple similar-appearing calcifications bilaterally. Finding 3: There are biopsy marker clips in both breasts. ULTRASOUND TECHNIQUE: Targeted ultrasound of the indicated area was performed. German scale images were saved. ULTRASOUND FINDINGS: Finding 1: Ultrasound demonstrates an irregular mass measuring 1.0 x 0.8 x 0.9cm in the right breast at 11 o'clock located 4 cm from the nipple. Internal echotexture is hypoechoic. Color flow imaging demonstrates vascularity is not present. The ipsilateral axilla was surveyed, and no abnormal lymph nodes were visible. IMPRESSION: Finding 1: Irregular mass in the right breast is suspicious of malignancy. An ultrasound guided biopsy is recommended. Findings were discussed with the patient at the time of examination. Informed consent for the recommended biopsy was explained and signed by the patient. Finding 2: Calcifications in the left breast are probably benign. Follow-up in 6 months is recommended. Finding 3: Biopsy marker clips in both breasts are benign. BI-RADS Category 4: Suspicious Interpreting Radiologist: Maciel Cuevas M.D. Offender Job Retention Specialist: DAO Transcribe Date/Time: Feb 21 2024 12:25P Dictated by : MACIEL CUEVAS MD This examination was interpreted and the report reviewed and electronically signed by: MACIEL CUEVAS MD on Feb 21 2024 1:02PM EST [id number] SUSIE BORGES Observed: 02/21/2024 12:08 PM Status: F Source: [facility] * * *Final Report* * * DATE OF EXAM: Feb 21 2024 12:08PM [facility] 0627 - SUSIE BORGES / PROCEDURE REASON: multiple diagnoses * * * * Physician Interpretation * * * * RESULT: [facility] [id number] [address] [address] HISTORY: Patient is 68 years old and is seen for diagnostic evaluation of asymptomatic in both breasts. COMPARISON STUDIES: The present examination has been compared to prior imaging studies dated 03/10/2023 (mammogram), 03/10/2023 (ultrasound), 03/10/2023, 03/15/2023 (MRI), 07/01/2023 (MRI) and 10/26/2023 (mammogram). MAMMOGRAM TECHNIQUE: The study was acquired using full field digital technology and interpreted from soft copy. Digital Breast Tomosynthesis (DBT) images were obtained and used to assist in the interpretation of this examination. Computer-aided detection was utilized by the radiologist in the interpretation of this examination. MAMMOGRAM FINDINGS: The breasts are heterogeneously dense, which may obscure small masses. Finding 1: There is an asymmetry with associated post-operative change in the upper outer quadrant of the right breast. Finding 2: There are coarse heterogeneous calcifications with grouped distribution in the lateral left breast. Given differences in technique, calcifications are thought to be present on the 03/10/2023 study however, have demonstrate interval coarsening suggestive of benignity. There are multiple similar-appearing calcifications bilaterally. Finding 3: There are biopsy marker clips in both breasts. ULTRASOUND TECHNIQUE: Targeted ultrasound of the indicated area was performed. German scale images were saved. ULTRASOUND FINDINGS: Finding 1: Ultrasound demonstrates an irregular mass measuring 1.0 x 0.8 x 0.9cm in the right breast at 11 o'clock located 4 cm from the nipple. Internal echotexture is hypoechoic. Color flow imaging demonstrates vascularity is not present. The ipsilateral axilla was surveyed, and no abnormal lymph nodes were visible. IMPRESSION: Finding 1: Irregular mass in the right breast is suspicious of malignancy. An ultrasound guided biopsy is recommended. Findings were discussed with the patient at the time of examination. Informed consent for the recommended biopsy was explained and signed by the patient. Finding 2: Calcifications in the left breast are probably benign. Follow-up in 6 months is recommended. Finding 3: Biopsy marker clips in both breasts are benign. BI-RADS Category 4: Suspicious Interpreting Radiologist: Maciel Cuevas M.D. Offender Job Retention Specialist: DAO Transcribe Date/Time: Feb 21 2024 11:28A Dictated by : MACIEL CUEVAS MD This examination was interpreted and the report reviewed and electronically signed by: MACIEL CUEVAS MD on Feb 21 2024 1:02PM EST [id number] PROGRESS Observed: 02/21/2024 11:20 AM Status: COMPLETED [id number] Author: RED MOLINA, ? Service: ? Author Type: Irrigation Manager Type: Progress Notes Filed: 02/21/2024 11:29 Note Text: Radiology Service Progress Note PATIENT NAME: Jyoti Thao DATE OF SERVICE: February 21, 2024 TIME: 11:29 AM PATIENT IDENTITY VERIFICATION COMPLETED USING TWO (2) IDENTIFIERS: Name and Date of confirmed by patient verbally. FALL SCREENING: Has the patient had 2 falls in the last year or 1 fall with injury or currently using an Ambulatory Assistive Device (Walker, Cane, Wheelchair, Crutches, etc.)? No PATIENT GENDER DATA: Female. status: : No status: NO. PATIENT RELEVANT IMPLANT DATA REVIEWED: Not Applicable PATIENT PRESENTS WITH AN IMPLANTABLE OR ATTACHED RN CARDIOVASCULAR: No RADIOLOGY DEPARTMENT: Mammography PERIPHERAL IV DATA: Not applicable SIGNED BY: Red Molina RRT February 21, 2024 11:29 AM ALLERGIES DATE TYPE / CODE NAME / CODE REACTION SEVERITY SOURCE 11/06/2024 Drug Allergy/416 989051(SNOM ED CT) morphine/[id number](R XNORM) Migraine Unknown [facility] 09/30/2023 DRUG INGREDI/419 429941(SNOM ED CT) TIZANIDINE HCL ITCHING [facility] 09/30/2023 DRUG INGREDI/419 841309(SNOM ED CT) TIZANIDINE HCL Itching~Other [facility] 02/21/2023 DRUG/510388 003(SNOMED CT) CHLORPHENIRAMINE-PSEU DOEPHED UNKNOWN [facility] 01/20/2023 DRUG INGREDI/419 742190(SNOM ED CT) PROMETHAZINE UNKNOWN [facility] 01/20/2023 DRUG INGREDI/419 751221(SNOM ED CT) PROMETHAZINE [facility] 03/01/2022 Drug Class/75951 1003(SNOMED CT) ADHESIVE OTHER: SEE [facility] 03/01/2022 DRUG/237725 003(SNOMED CT) ALLER-CHLOR DECONGESTANT UNKNOWN [facility] 03/01/2022 Drug Class/25124 1003(SNOMED CT) ADHESIVE [facility] 03/01/2022 DRUG/126230 003(SNOMED CT) ALLER-CHLOR DECONGESTANT [facility] 08/24/2021 Drug Class/25115 1003(SNOMED CT) YMAYZPG-LCN-RGX REDUCTASE INHIBITORS OTHER: SEE [facility] 08/24/2021 Drug Class/81375 1003(SNOMED CT) GZNKHSJ-ISI-OBF REDUCTASE INHIBITORS Unknown [facility] 09/22/2020 DRUG INGREDI/419 481172(SNOM ED CT) DIAZEPAM OTHER: SEE [facility] 04/07/2020 DRUG INGREDI/419 231350(SNOM ED CT) DIAZEPAM Other [facility] 12/03/2019 DRUG/072569 003(SNOMED CT) DECONGEST MULTI-ACTION OTHER: SEE [facility] 11/05/2019 DRUG/521102 003(SNOMED CT) 12 HOUR COLD CAPSULE INTOLERANCE [facility] 11/05/2019 DRUG INGREDI/419 925939(SNOM ED CT) DIPHENHYDRAMINE INTOLERANCE [facility] 11/05/2019 DRUG INGREDI/419 364468(SNOM ED CT) LEVOFLOXACIN INTOLERANCE [facility] 11/05/2019 DRUG INGREDI/419 656530(SNOM ED CT) NALBUPHINE RASH [facility] 11/05/2019 DRUG/804394 003(SNOMED CT) 12 HOUR COLD CAPSULE Other [facility] 11/05/2019 DRUG INGREDI/419 266066(SNOM ED CT) DIPHENHYDRAMINE Other [facility] 11/05/2019 DRUG INGREDI/419 324624(SNOM ED CT) LEVOFLOXACIN Other [facility] 11/05/2019 DRUG INGREDI/419 459528(SNOM ED CT) NALBUPHINE Rash [facility] 04/02/2019 DRUG INGREDI/419 598198(SNOM ED CT) PSEUDOEPHEDRINE OTHER: SEE [facility] 04/02/2019 DRUG/519859 003(SNOMED CT) RAUHAKYUCXNNFHW-FJ-YE AIFENESIN INTOLERANCE [facility] 04/02/2019 DRUG/023273 003(SNOMED CT) IIKFIKSBJFGRZSZ-EL-TG AIFENESIN [facility] 04/18/2018 DRUG INGREDI/419 156175(SNOM ED CT) OXYCODONE GI UPSET [facility] 04/18/2018 DRUG INGREDI/419 266487(SNOM ED CT) OXYCODONE Other~NandV [facility] 03/14/2018 DRUG INGREDI/419 372972(SNOM ED CT) PROGESTERONE OTHER: SEE [facility] 03/14/2018 DRUG INGREDI/419 848672(SNOM ED CT) PROGESTERONE [facility] 02/10/2018 DRUG INGREDI/419 688510(SNOM ED CT) HYDROCODONE OTHER: SEE [facility] 02/10/2018 DRUG INGREDI/419 335667(SNOM ED CT) HYDROCODONE Other [facility] 09/08/2017 DRUG/453925 003(SNOMED CT) RBM-GXUZXQBOB-YWOCQKZ NOPHEN ITCHING [facility] 09/08/2017 DRUG/881628 003(SNOMED CT) KMX-BJXYYAYNC-DUROGPT NOPHEN Itching~Unknown [facility] 09/05/2013 DRUG INGREDI/419 047078(SNOM ED CT) TRAMADOL ITCHING [facility] 09/05/2013 DRUG INGREDI/419 061067(SNOM ED CT) TRAMADOL Itching~Unknown [facility] 07/05/2011 DRUG INGREDI/419 533569(SNOM ED CT) MORPHINE UNKNOWN [facility] 02/20/2010 DRUG INGREDI/419 086896(SNOM ED CT) MORPHINE Headache~NandV~Ot her~Nausea Low [facility] CAMERON36690558 6(SNOMED CT) morphine 784.0~Nausea and [facility] CAMERON84439964 6(SNOMED CT) Benadryl Hyperactive [facility] CAMERON55792648 6(SNOMED CT) Nubain 158246321 [facility] CAMERON47882357 6(SNOMED CT) Decongestant Hyperactive [facility] SRIKANTH 6(SNOMED CT) Levaquin 574441423 [facility] DARON39292221 6(SNOMED CT) statins [id number] [facility] ENCOUNTERS ADMIT/DISCHARGE ACCOUNT NUMBER ADMITTING ENCOUNTER CLASS LOCATION SOURCE 02/18/2025/02/19/20 [id number] [facility] 02/18/2025 [id number] [facility] 02/18/2025 [id number] [facility] 12/19/2024/12/20/19 [id number] Ambulatory Building:NOM S POD [facility] 11/20/2024/11/21/19 [id number] [facility] 11/14/2024/11/15/19 [id number] [facility] 11/06/2024 [id number] [facility] [place] 11/06/2024/11/07/19 [id number] Asaad, Imad [facility] 10/17/2024/10/18/19 [id number] [facility]ulatory [facility] 10/17/2024/10/18/19 [id number] [facility] 10/16/2024/10/17/19 [id number] Ambulatory Building:NOM S POD [facility] 10/09/2024/10/10/19 25 [id number] [facility] 09/20/2024/09/21/19 25 [id number] [facility]AVBR [facility] 09/18/2024/09/19/19 25 [id number] Ambulatory Building:NOM S POD [facility] 09/11/2024/09/12/19 25 [id number] [facility]:SALB [facility] 09/11/2024/09/12/19 25 [id number] [facility]ulatory [facility]:HESA [facility] 09/11/2024/09/12/19 25 [id number] [facility]ulatory [facility]:HESA [facility] 09/11/2024/09/12/19 25 [id number] [facility]:NMAC [facility] 08/21/2024 [id number] [facility] 07/31/2024/08/01/19 25 [id number] Ambulatory Building:NOM S NB OB [facility] 07/16/2024/07/16/19 25 [id number] [facility]/18/[facility]24/06/18/19 25 [id number] Ambulatory Building:NOM S NB OPHT [facility] 06/07/2024/06/07/19 25 [id number] Ambulatory Building:HVC C [facility] 05/31/2024/05/31/19 25 [id number] [facility]:JD [facility] 05/31/2024/05/31/19 25 [id number] [facility]JD [facility] 05/04/2024/05/04/20 24 [id number] [facility]:AARON [facility] 05/04/2024/05/04/20 24 [id number] [facility] [id number] [facility] 03/08/2024/03/09/20 24 [id number] [facility]:HETS [facility] 03/08/2024/03/08/20 24 [id number] [facility]:HESA [facility] 03/08/2024/03/08/20 24 [id number] [facility]:HESA [facility] 02/21/2024 [id number] [facility] PAYERS ENCOUNTER GUARANTOR PAYER SUBSCRIBER SOURCE 02/18/2025 Primary Insurance:MEDICARE A AND BPolicy Number: [id number] Date:6487-08-75Ipew Name:Latonya BRISCOE: [id number] [address] 02/18/2025 Primary Insurance:MEDICARE A AND BPolicy Number: [id number] Date:6315-91-56Zcsj Name:Latonya BRISCOE: [id number] [address] 02/18/2025 Primary Insurance:MEDICARE A AND BPolicy Number: [id number] Date:1647-60-00Gozk Name:Latonya BRISCOE: [id number] [address] 12/19/2024 JYOTI BRISCOE: [place] [address]Owf: () Primary Insurance:MEDICAREPolic y Number: [id number] Date:8129-30-51Ucub Name:Medicare JYOTI BRISCOE: [id number] [place] [address] [facility] 11/20/2024 Primary Insurance:MEDICARE A AND BPolicy Number: [id number] Date:7661-70-99Qkgt Name:Latonya BRISCOE: [id number] [place] [address] [facility] 11/14/2024 Primary Insurance:MEDICARE A AND BPolicy Number: [id number] Date:6852-56-46Fole Name:Latonya BRISCOE: [id number] [place] [address] [facility] 11/14/2024 Secondary Insura nce:[facility] AARP SUPPLEMENTPolicy Number: [id number] Date:3285-02-98Pxlw Name:Stormy BRISCOE: [id number] [place], [place] [address] [place] [address] 11/06/2024 JYOTI BRISCOE: [facility]: ~~( 42 (HP) Primary Insurance:[employer] BenefitsPolicy Number: [id number] Date:6149-54-41[id number] [place] [address] 266[address]LC: ALEX MEDINA [facility] 11/06/2024 Secondary Insurance:MEDICAREPolic y Number: [id number] Date:4766-98-07MX [address] [place] [address]FW: JYOTI MEDINA [facility] 11/06/2024 [place] [address]Nnv: (HP) Primary Insurance:Self PayPolicy Number: Effective Date:2024-11-06 NOT [facility] 10/17/2024 Primary Insurance:[employer] BENEFITSPolicy Number: [id number] Date:8988-35-00Spoe Name:Stormy BRISCOE: [id number] [place] [address] [facility] 10/17/2024 Secondary Insurance:MEDICARE A AND BPolicy Number: [id number] Date:4828-74-58Pnzj Name:Latonya BRISCOE: [id number] [facility] [place] [address] [facility] 10/17/2024 Tertiary Insuran ce:[facility] SUPPLEMENTPolicy Number: [id number] Date:9399-47-85Jykn Name:Stormy BRISCOE: [id number] [place] [address] [facility] 10/17/2024 Primary Insurance:HE[employer] BENEFITSPolicy Number: [id number] Date:8317-63-92Ejin Name:Stormy BRISCOE: [id number] [place] [id number] [facility] 10/17/2024 Secondary Insurance:MEDICARE A AND BPolicy Number: [id number] Date:8251-27-71Vxru Name:Latonya BRISCOE: [id number] [place] [id number] [facility] 10/17/2024 Tertiary Insuran ce:[facility] SUPPLEMENTPolicy Number: [id number] Date:1629-06-71Xwsn Name:Stormy BRISCOE: [id number] [place] [address] [facility] 10/16/2024 JYOTI BRISCOE: [place] [address]Pwk: () Primary Insurance:HEALTHSCOPEPo licy Number: [id number] Date:2022-05-23 - 2024-11-19 TIM COLEMANB: [id number] [place] [address] [facility] 10/16/2024 Secondary Insurance:MEDICAREPolic y Number: [id number] Date:4784-09-86Njbd Name:Medicare JYOTI BRISCOE: [id number] [place] [address] [facility] 10/09/2024 Primary Insurance:HEALTHSCOPE BENEFITSPolicy Number: [id number] Date:8818-94-09Fnid Name:Stormy BRISCOE: [id number] [place] [address] [facility] 10/09/2024 Secondary Insurance:MEDICARE A AND BPolicy Number: [id number] Date:9358-85-86Lrmd Name:Latonya BRISCOE: [id number] [address] 10/09/2024 Tertiary Insuran ce:[facility] AARP SUPPLEMENTPolicy Number: [id number] Date:3973-80-87Tmnk Name:Stormy BRISCOE: [id number] [address] 09/20/2024 Primary Insurance:HEALTHSCOPE BENEFITSPolicy Number: [id number] Date:3998-74-72Qfpl Name:Stormy BRISCEO: [id number] [address] 09/20/2024 Secondary Insurance:MEDICARE A AND BPolicy Number: [id number] Date:1986-65-59Qcrv Name:Latonya BRISCOE: [id number] [place] [id number] [facility] 09/18/2024 JYOTI BRISCOE: [place] [address]Ccj: () Primary Insurance:HEALTHSCOPEPo licy Number: [id number] Date:2022-05-23 TIM BRISCOE: [id number] [place] [address] [facility] 09/18/2024 Secondary Insurance:MEDICAREPolic y Number: [id number] Date:3580-54-96Zzyp Name:Medicare MARY L GROSSDOB: [id number] [place] [address] [facility] 09/11/2024 Primary Insurance:HEALTHSCOPE BENEFITSPolicy Number: [id number] Date:5317-61-22Xzgq Name:Stormy BRISCOE: [id number] [address] 09/11/2024 Secondary Insurance:MEDICARE A AND BPolicy Number: [id number] Date:0386-43-57Rvlc Name:Latonya BRISCOE: [id number] [address] 09/11/2024 Primary Insurance:HEALTHSCOPE BENEFITSPolicy Number: [id number] Date:1746-53-76Qgzx Name:Stormy BRISCOE: [id number] [address] 09/11/2024 Secondary Insurance:MEDICARE A AND BPolicy Number: [id number] Date:5630-93-75Payn Name:Latonya BRISCOE: [id number] [address] 09/11/2024 Primary Insurance:HEALTHSCOPE BENEFITSPolicy Number: [id number] Date:2568-64-82Spub Name:Stormy BRISCOE: [id number] [address] 09/11/2024 Secondary Insurance:MEDICARE A AND BPolicy Number: [id number] Date:4685-24-98Qcno Name:Latonya BRISCOE: [id number] [address] 09/11/2024 Primary Insurance:HEALTHSCOPE BENEFITSPolicy Number: [id number] Date:7236-73-27Xgqd Name:Stormy BRISCOE: [id number] [address] 09/11/2024 Secondary Insurance:MEDICARE A AND BPolicy Number: [id number] Date:4386-82-16Tiic Name:Latonya BRISCOE: [id number] [place] [facility] [place] [address] [facility] 08/21/2024 Primary Insurance:HEALTHSCOPE BENEFITSPolicy Number: [id number] Date:8543-78-71Uhsg Name:Stormy COLEMANB: [id number] [place] [place] [address] [facility] 08/21/2024 Secondary Insurance:MEDICARE A AND BPolicy Number: [id number] Date:8662-68-90Qhpe Name:Latonya COLEMANB: [id number] [place] [address] [facility] 07/31/2024 JYOTI COLEMANB: [place] [address]Nsj: () Primary Insurance:HEALTHSCOPEPo licy Number: [id number] Date:2022-05-23 TIM COLEMANB: [id number] [facility] [place] [address] [facility] 07/31/2024 Secondary Insurance:MEDICAREPolic y Number: [id number] Date:1531-39-95Kpnd Name:Medicare JYOTI COLEMANB: [id number] [facility] [place] [address] [facility] 07/16/2024 Primary Insurance:MEDICARE A AND BPolicy Number: [id number] Date:2210-75-04Kedw Name:Latonya BRISCOE: [id number] [facility] [place] [address] [facility] 07/16/2024 Secondary Insurance:HEALTHSCOPE BENEFITSPolicy Number: [id number] Date:4429-07-61Fnli Name:Stormy COLEMANB: [id number] [place] [place] [address] [facility] 06/18/2024 JYOTI COLEMANB: [place] [address]Ibq: () Primary Insurance:HEALTHSCOPEPo licy Number: [id number] Date:2022-05-23 TIM LUIS FELIPE: [id number] [place] [address] [facility] 06/18/2024 Secondary Insurance:MEDICAREPolic y Number: [id number] Date:4718-24-81Jiwa Name:Medicare MARY L GROSSDOSuraj: [id number] [place] [address] [place] [address] [facility] 06/07/2024 Primary Insurance:[facility] GLEN[facility]IGHPolicy Number: [id number] Date:2022-05-23 TIM Krishna LUIS FELIPE: [id number] [place] [id number] [facility] 06/07/2024 Secondary Insurance:MEDICAREPolic y Number: [id number] Date:3248-95-05Eksc Name:Medicare JYOTI THAOB: [id number] [place] [address] [place] [address] 05/31/2024 Primary Insurance:MEDICARE A AND BPolicy Number: [id number] Date:8691-01-00Xrgv Name:Latonya BRISCOE: [id number] [place] [address] [facility] 05/31/2024 Secondary Insurance:HEALTHSCOPE BENEFITSPolicy Number: [id number] Date:1647-39-63Xvhq Name:Y TIM THAOSEVERIANO: [id number] [place] [address] [facility] 05/31/2024 Primary Insurance:MEDICARE A AND BPolicy Number: [id number] Date:2077-98-54Fhon Name:Latonya BRISCOE: [id number] [place] [address] [facility] 05/31/2024 Secondary Insurance:HEALTHSCOPE BENEFITSPolicy Number: [id number] Date:6671-44-90Ebad Name:Stormy Krishna LUIS FELIPE: [id number] [place] [address] [facility] 05/04/2024 Primary Insurance:MEDICARE A AND BPolicy Number: [id number] Date:6990-67-56Szuk Name:Latonya BRISCOE: [id number] [place] [id number] [facility] 05/04/2024 Secondary Insurance:HEALTHSCOPE BENEFITSPolicy Number: [id number] Date:4267-54-34Npvh Name:Stormy Krishna SUSIOB: [id number] [address] 05/04/2024 Primary Insurance:MEDICARE A AND BPolicy Number: [id number] Date:6308-07-51Qsyd Name:Latonya COLEMANSuraj: [id number] [address] 05/04/2024 Secondary Insurance:HEALTHSCOPE BENEFITSPolicy Number: [id number] Date:0638-01-31Nxnf Name:Stormy Krishna LIBERTY: [id number] [address] 03/14/2024 Primary Insurance:HEALTHSCOPE BENEFITSPolicy Number: [id number] Date:7693-41-71Ypoi Name:Stormy THAOSEVERIANO: [id number] [address] 03/14/2024 Secondary Insurance:MEDICARE A AND BPolicy Number: [id number] Date:2935-92-70Hute Name:Latonya BRISCOE: [id number] [address] 03/08/2024 Primary Insurance:HEALTHSCOPE BENEFITSPolicy Number: [id number] Date:3240-26-27Qumw Name:Stormy THAOSEVERIANO: [id number] [place] [id number] [facility] 03/08/2024 Secondary Insurance:MEDICARE A AND BPolicy Number: [id number] Date:1805-73-73Eazb Name:Latonya BRISCOE: [id number] [place] [address] [facility] 03/08/2024 Primary Insurance:HEALTHSCOPE BENEFITSPolicy Number: [id number] Date:3944-51-16Nrze Name:Stormy BRISCOE: [id number] [place] [id number] [facility] 03/08/2024 Secondary Insurance:MEDICARE A AND BPolicy Number: [id number] Date:4865-19-63Nhls Name:Latonya BRISCOE: [id number] [place] [id number] [facility] 03/08/2024 Primary Insurance:HEALTHSCOPE BENEFITSPolicy Number: [id number] Date:2980-15-81Enqy Name:Stormy BRISCOE: [id number] [place] [id number] [facility] 03/08/2024 Secondary Insurance:MEDICARE A AND BPolicy Number: [id number] Date:2113-65-17Wpza Name:Latonya BRISCOE: [id number] [place] [id number] [facility] 02/21/2024 Primary Insurance:HEALTHSCOPE BENEFITSPolicy Number: [id number] Date:3333-75-00Gvyq Name:Stormy BRISCOE: [id number] [address] 02/21/2024 Secondary Insurance:MEDICARE A AND BPolicy Number: [id number] Date:6272-69-92Fiui Name:Latonya BRISCOE: [id number] [address]
--- OUTSIDE RECORDS SUMMARY | 2025-02-19 08:43 | XMS_ITS | Encounter Summary ---
Author Organization [facility] Address [id number] [address] [place] [address] Care Team Providers Care Quilter Fixer Name Role Phone Pankaj Arevalo MD Primary Care Provider [phone] Reason for Visit * Reason Onset Date Comments botox claims 07/31/2021 Encounter Details Date Type Department Care Team (Late st Contact Info) Description 07/31/2021 Telephone [facility] Neurology [address] [place] [phone] Alida Zuniga botox claims Social History Tobacco Use Types Packs/Day Years Used Date Smoking Tobacco: Never Smokeless Tobacco: Never Alcohol Use Standard Drinks/Week Comments Yes 1 (1 standard drink = 0.6 oz pur e alcohol) rarely PHQ-2 Answer Date Recorded Total Score 0 10/29/2020 Childcare Answer Date Recorded Childcare Unknown 11/01/2018 Employment Answer Date Recorded Employment Unknown 11/01/2018 Comments No Sex and Gender Information Value Date Recorded Sex Assigned at Female 02/09/2022 10:45 AM EDT Legal Sex Female 11:48 AM EDT Gender Identity Female 02/09/2022 10:45 AM EDT Sexual Orientation Straight 02/09/2022 10 :45 AM EDT documented as of this encounter Miscellaneous Notes * Telephone Encounter - Alida Zuniga - 07/31/2021 10:18 AM EST Lucie from [employer] calling in regards to patient's botox injections. Lucie states there more than 1 claim on patient for botox injections from July 2020. She would like to clarify specific information regarding botox. Please call [phone] Ext: [phone] * Telephone Encounter - Rand Yoder LPN - 07/31/2021 10:18 AM EST Left message on vm * Telephone Encounter - Rand Yoder LPN - 07/31/2021 10:18 AM EST Spoke with lucie regarding date of service documented in this encounter Plan of Treatment Not on file documented as of this encounter Visit Diagnoses Not on filedocumented in this encounter Additional Health Concerns Assessment Noted Time PHQ-9 Depression Total Score: 0 10/30/19 21 11:21 AM EDT documented as of this encounter Care Teams Quilter Fixer Relationship Specialty Start Date End Date Pankaj Arevalo MD PCP - General 09/08/17 documented as of this encounter
--- OUTSIDE RECORDS SUMMARY | 2025-02-19 08:43 | XMS_ITS | Encounter Summary ---
Author Organization [facility] Address [id number] [address] [place] [address] Care Team Providers Care Television Parts Tester Name Role Phone Pankaj Arevalo MD Primary Care Provider [phone] Reason for Visit * Reason Onset Date Comments Labs Only 05/13/2022 Encounter Details Date Type Department Care Team (Late st Contact Info) Description 05/13/2022 [facility]phone [facility] [address] [facility] [address] [place] [phone] Yessy Flores LPN Labs Only Social History Tobacco Use Types Packs/Day Years Used Date Smoking Tobacco: Former Cigarettes Smokeless Tobacco: Never Alcohol Use Standard Drinks/Week Comments Yes 1 (1 standard drink = 0.6 oz pur e alcohol) rarely PHQ-2 Answer Date Recorded Total Score 0 10/29/2020 Childcare Answer Date Recorded Childcare Unknown 11/01/2018 Employment Answer Date Recorded Employment Unknown 11/01/2018 Hunger Screening Answer Date Recorded Within the past 12 months we worried whether our food would run out before we got money to buy more. Never True 05/06/2022 Within the past 12 months th e food we bought just didn't last and we didn't have money to get more. Never True 05/06/2022 Comments No Sex and Gender Information Value Date Recorded Sex Assigned at Female 02/09/2022 10:45 AM EDT Legal Sex Female 11:48 AM EDT Gender Identity Female 02/09/2022 10:45 AM EDT Sexual Orientation Straight 02/09/2022 10 :45 AM EDT COVID-19 Exposure Response Date Recorded In the last month, have you been in contact with someone who was confirmed or suspected to have Coronavirus / COVID-19? No / Unsure 05/06/2022 2:58 PM EST documented as of this encounter Miscellaneous Notes * Telephone Encounter - Yessy Flores LPN - 05/13/2022 1:54 PM EST WHEN DOES SHE NEED TO HAVE THE LABS DONE? * Telephone Encounter - Shimon Sloares MD - 05/13/2022 1:54 PM EST With her next labs, thank you documented in this encounter Plan of Treatment Not on file documented as of this encounter Visit Diagnoses Not on filedocumented in this encounter Additional Health Concerns Assessment Noted Time PHQ-9 Depression Total Score: 0 10/30/19 21 11:21 AM EDT documented as of this encounter Care Teams Television Parts Tester Relationship Specialty Start Date End Date Pankaj Arevalo MD PCP - General 09/08/17 documented as of this encounter
--- OUTSIDE RECORDS SUMMARY | 2025-02-19 08:43 | XMS_ITS | Encounter Summary ---
Author Organization [facility] Address [id number] [address] [place] [address] Care Team Providers Care Receiving Teller Name Role Phone Pankaj Arevalo MD Primary Care Provider [phone] Encounter Details Date Type Department Care Team (Late st Contact Info) Description 04/11/[address] [facility] [address] [phone] Yessy Flores LPN Social History Tobacco Use Types Packs/Day Years [...] Telephone Encounter - Yessy Flores LPN - 04/11/2023 3:36 PM EST PT HAS BREAST CANER AND IS UNDER THE CARE OF [facility] IN [place]. THEY ARE ALSO MONITORINGHER THYROID UNTIL HER TREATMENT IS DONE. SHE WILL FOLLOW WITH THEM. * Telephone Encounter - Shimon Solares MD - 04/11/2023 3:36 PM EST ok documented in this encounter Plan of Treatment Not on file documented as of this encounter Visit Diagnoses Not on filedocumented in this encounter Additional Health Concerns Assessment Noted Time PHQ-9 Depression Total Score: 0 10/30/19 21 11:21 AM EDT documented as of this encounter Care Teams Receiving Teller Relationship Specialty Start Date End Date Pankaj Arevalo MD PCP - General 09/08/17 documented as of this encounter
--- OUTSIDE RECORDS SUMMARY | 2025-02-19 08:43 | XMS_ITS | Encounter Summary ---
[facility] Address [id number] [address] [place] [address] Care Team Providers Care Fire Investigator Name Role Phone Pankaj Arevalo MD Primary Care Provider [phone] Reason for Visit * Reason Onset Date Comments Botulinum Toxin Injection 08/20/2020 Encounter Details Date Type Department Care Team (Late st Contact Info) Description 08/20/2020 [facility] [address] [place] [phone] Taty Callahan Botulinum Toxin Injection Social History Tobacco Use Types Packs/Day Years Used Date Smoking Tobacco: Never Smokeless Tobacco: Never Alcohol Use Standard Drinks/Week Comments Yes 1 (1 standard drink = 0.6 oz pur e alcohol) rarely Childcare Answer Date Recorded Childcare Unknown 11/01/2018 [...] have Coronavirus / COVID-19? No / Unsure 08/18/2020 12:42 PM EDT documented as of this encounter Miscellaneous Notes * Telephone Encounter - Taty Callahan - 08/20/2020 1:32 PM EDT Received call today 08/20/20 1:32 from Interview MasterLuciaThetaRay Pepito who wants to schedule patient's Botox shipment to provider's office. Please call back and advise, callback#: [phone]. documented in this encounter Plan of Treatment Not on file documented as of this encounter Visit Diagnoses Not on filedocumented in this encounter Care Teams Fire Investigator Relationship Specialty Start Date End Date Pankaj Arevalo MD PCP - General 09/08/17 documented as of this encounter
--- OUTSIDE RECORDS SUMMARY | 2025-02-19 08:43 | XMS_ITS | Encounter Summary ---
Author Organization [facility] Address [facility] [address] [place] [address] Care Team Providers Care Clearing Tub Worker Name Role Phone Pankaj Arevalo MD Primary Care Provider [phone] Encounter Details Date Type Department Care Team (Late st Contact Info) Description 08/06/2020 Orders Only [facility] - Audiology [address] [place] [address] Gabriela Davidson MD [address] [place], [place] [phone] Social History Tobacco Use Types Packs/Day Years [...] AM EDT documented as of this encounter Plan of Treatment Not on file documented as of this encounter Procedures Procedure Name Priority Date/Time Associated Diagnosis Comments COMPREHENSIVE HEARING TEST Routine 07/30/2020 documented in this encounter Results * Comprehensive hearing test (07/30/2020) us Gabriela Davidson MD AUDIOLOGY SERVICES ORDERABLES F inal Result MANUALLY TRANSCRIBED RESULTS documented in this encounter Visit Diagnoses Not on filedocumented in this encounter Care Teams Clearing Tub Worker Relationship Specialty Start Date End Date Pankaj Arevalo MD PCP - General 09/08/17 documented as of this encounter
--- OUTSIDE RECORDS SUMMARY | 2025-02-19 08:43 | XMS_ITS | Clinical Summary ---
Author Organization [facility] Address [address] [place] [address] Care Team Providers Care Vice President Commercial Bank Name Role Phone Pankaj Arevalo MD Primary Care Provider [phone] Allergies Active Allergy Reactions Criticality Noted Date Comments 12 Hour Cold Capsule Other 11/05/2019 Adhesive 03/01/2022 Aller-Chlor Decongestant 03/01/2022 Jlm-Nnskscqvq-Pvwhvaxgzm hen Itching,Unknown 09/08/2017 Diazepam Other 04/07/2020 hangover sick-headache Diphenhydramine Other 11/05/2019 Hydrocodone Other Medium 02/10/2018 Other reaction(s): Other: See Comments Headaches Headaches Levofloxacin Other 11/05/2019 Morphine Headache,Nausea And Vomiting,Other,GI intolerance Low 02/20/2010 Other reaction(s): GI Upset, Unknown Migraine Migraine Nalbuphine Rash Low 11/05/2019 Oxycodone Other,Nausea And Vomiting Medium 04/18/2018 Can take 1/2 tab, but full tab makes her sick Can take 1/2 tab, but full tab makes her sick Progesterone Other 03/14/2018 Other reaction(s): Other: See Comments Speeds up metabolism Speeds up metabolism Weight gain and voice hoarse Promethazine 01/20/2023 Other reaction(s): Unknown Yhxnyeluaojxhho-Ri-Zlpwa enesin Other 04/02/2019 ANY Decongestant-Hyper active Mmnjmkl-Fwy-Ars Reductase Inhibitors Unknown 08/24/2021 Tizanidine Hcl Itching,Other 09/30/2023 Tramadol Itching,Unknown Low 09/05/2013 Tooth sensitivity Only tolerates low dose Tooth sensitivity Only tolerates low dose Only tolerates low dose Medications cyclobenzaprine (Flexeril) 10 mg tablet Take 1 tablet by mouth if needed. 02/21/20 13 Active diazePAM (Valium) 2 mg tablet diazepam 2 mg tablet as needed 02/21/20 15 Active eletriptan (Relpax) 40 mg tablet eletriptan 40 mg tablet 02/21/20 10 Active HYDROcodone-acetam inophen (Vicodin) 10-300 mg tablet every 6 (six) hours. Active hyoscyamine ER (Levbid) 0.375 mg 12 hr tablet hyoscyamine ER 0.375 mg tablet,extended release,12 hr TAKE 1 TABLET BY MOUTH EVERY DAY 02/21/20 17 Active levothyroxine (Synthroid, Levoxyl) 50 mcg tablet 1 (one) time each day at the same time. 06/01/19 22 Active meclizine (Antivert) 25 mg tablet meclizine 25 mg tablet Active omeprazole (PriLOSEC) [address] capsule Take 40 mg by mouth in the morning and 40 mg in the evening. Active onabotulinumtoxinA (BOTOX INJ) Botox injection every 3 months for migraines Active ondansetron ODT (Zofran-ODT) 4 mg disintegrating tablet Take 4 mg by mouth once daily as directed. 02/21/20 17 Active oxyCODONE-acetamin ophen (Percocet) 5-325 mg tablet if needed. 02/21/20 12 Active scopolamine (Transderm-Scop) 1 mg over 3 days patch 3 day if needed. 02/21/20 15 Active traMADol (Ultram) 50 mg tablet if needed. Active metFORMIN (Glucophage) 500 mg tablet Take 500 mg by mouth in the morning and at bedtime. 05/18/20 23 Active pantoprazole (ProtoNix) 40 mg EC tablet Take 40 mg by mouth. 08/31/19 23 Active triamcinolone (Kenalog) 0.1 % cream if needed. 05/13/20 23 Active simvastatin (Zocor) 10 mg tablet Take 10 mg by mouth at bedtime. Active gabapentin (Neurontin) 300 mg capsule Take 300 mg by mouth 3 times a day. 09/10/19 24 Active predniSONE (Deltasone) 10 mg tablet Take 10 mg by mouth in the morning. 05/22/20 24 Active Social History Tobacco Use Types Packs/Day Years Used Date Smoking Tobacco: Former Cigarettes 0.3 40 0 10/21/1974 - 10/21/2014 Passive Smoke Exposure: Past Smokeless Tobacco: Never Tobacco Cessation:Counseling Given: Not Answered Alcohol Use Standard Drinks/Week Comments Never 0 (1 standard drink = 0.6 oz pur e alcohol) Humiliation, Afraid, Rape, and Kick questionnair e Answer Date Recorded Within the last year, have y ou been afraid of your partner or ex-partner? No 06/07/2024 Emotionally Abused Not on file 06/07/2024 Physically Abused Not on file 06/07/2024 Sexually Abused Not on file 06/07/2024 PHQ-2 Answer Date Recorded Patient Health Questionnaire-2 Score 0 06/07/2024 Comments Unknown Sex and Gender Information Value Date Recorded Sex Assigned at Not on file Legal Sex Female 9:58 PM EDT Gender Identity Not on file Sexual Orientation Not on file Last Filed Vital Signs Vital Sign Reading Time Taken Comments Blood Pressure 132/75 06/07/2024 3:03 PM EST Pulse 105 06/07/2024 3:03 PM EST Temperature - - Respiratory Rate 12 03/03/2021 3:57 PM EDT Oxygen Saturation - - Inhaled Oxygen Concentration - - Weight 79.4 kg (175 lb) 06/07/2024 2:53 PM EST Height 167.6 cm (5' 6 ) 06/07/2024 2:53 PM EST Body Mass Index 28.25 06/07/2024 2:53 PM EST Plan of Treatment Health Maintenance Due Date Last Done Comments CT Colonography 1956 Diabetes: Hemoglobin A1C 1956 FIT-DNA 1956 FIT 1956 FOBT 1955 Medicare Annual Wellness (AWV) 1955 Sigmoidoscopy 1955 IPV Vaccines (2 of 3 - 4-dose series) 11/18/1960 10/21/1960 Diabetes: Retinopathy Screening 1966 Diabetes: Urine Protein Screening 12/23/1975 Pneumococcal Vaccine: 50+ Years (3 of 3 - PCV20 or PCV21) 02/17/2024 02/16/2019, 06/01/2013, 02/20/2013 COVID-19 Vaccine ( season) 2025 03/09/2021 Influenza Vaccine (#1) 2025 , 02/24/2023, 03/18/2022, Additional history exists Depression Screening 06/07/2025 06/07/2024 Fall Risk Screening 06/07/2025 06/07/2024 Colonoscopy 03/30/2026 03/30/2016, 02/22, 05/22/2010 Colorectal Cancer Screening 03/30/2026 Adult Tetanus 07/05/2029 07/05/2019 Zoster Vaccines Completed 01/16/2020, 09/21, 03/16/2017, Additional history exists Mammogram Discontinued 03/14/2024, 05/2023, 03/10/2023, Additional history exists HIB Vaccines Aged Out No longer eligi ble based on patient's age to complete this topic HPV Vaccines Aged Out No longer eligi ble based on patient's age to complete this topic Meningococcal B Vaccine Aged Out No l onger eligible based on patient's age to complete this topic Meningococcal Vaccine Aged Out No severino luisito eligible based on patient's age to complete this topic Rotavirus Vaccines Aged Out No longer eligible based on patient's age to complete this topic Insurance [facility] MEDICARE Care Teams Vice President Commercial Bank Relationship Specialty Start Date End Date Pankaj Arevalo MD [address] [facility] [place] [address] PCP - General 03/01/22
--- OUTSIDE RECORDS SUMMARY | 2025-02-19 08:43 | XMS_ITS | Encounter Summary ---
Author Organization [facility] Address [address] [place] [address] Care Team Providers Care Cafeteria Associate Name Role Phone Pankaj Arevalo MD Primary Care Provider [phone] Encounter Details Date Type Department Care Team (Late Contact Info) Description 01/12/2023 Abstract [facility] [address] [place] [address] Pam Gotti, DO [address] [phone] Social History Tobacco Use Types Packs/Day Years Used Date Smoking Tobacco: Former Cigarettes Smokeless Tobacco: Never Tobacco Cessation:Counseling Given: Not Answered Comments:Last smoked : 1-5 years Alcohol Use Standard Drinks/Week Comments Not Currently 0 (1 standard drink = 0.6 oz pure alcohol) caffeine intake : more than 4 cups per day Comments No Sex and Gender Information Value Date Recorded Sex Assigned at Female 01/11/2023 10:11 AM EDT Legal Sex Female 6:44 PM EDT Gender Identity Female 01/11/2023 10:11 AM EDT Sexual Orientation Straight 01/11/2023 10 :11 AM EDT COVID-19 Exposure Response Date Recorded In the last 10 days, have yo u been in contact with someone who was confirmed or suspected to have Coronavirus/COVID-19? No / Unsure 01/11/2023 10:46 AM EDT documented as of this encounter Plan of Treatment Upcoming Encounters Date Type Department Care Team (Late Contact Info) Description 02/27/2025 1:50 PM EDT Office Visit [facility] [address] [place] [place] [phone] Tim Sun, DPM FACFAS [address] [facility] [place] [address] 08/01/2025 10:45 AM EDT Office Visit [facility] [address] [phone] Pam Gotti DO [address] [phone] documented as of this encounter Visit Diagnoses Not on filedocumented in this encounter Care Teams Cafeteria Associate Relationship Specialty Start Date End Date Pankaj Arevalo MD [address] [place] [phone] PCP - General Family Medicine 01/12/23 documented as of this encounter
--- OUTSIDE RECORDS SUMMARY | 2025-02-19 08:43 | XMS_ITS | Encounter Summary ---
Author Organization [facility] Address [id number] [address] [place] [address] Care Team Providers Care Station Installer And Repairer Name Role Phone Pankaj Arevalo MD Primary Care Provider [phone] Reason for Visit * Reason Onset Date Comments Med Refill 05/06/2020 Encounter Details Date Type Department Care Team (Late Contact Info) Description 05/06/2020 [facility] [address] [place] [phone] Taty Callahan Med Refill Social History Tobacco Use Types Packs/Day Years [...] have Coronavirus / COVID-19? No / Unsure 04/07/2020 2:05 PM EST documented as of this encounter Miscellaneous Notes * Telephone Encounter - Taty Callahan - 05/06/2020 3:59 PM EST Received call today 05/06/20 4:00 from patient who states [facility] received script on 04/22/20 for her Eletriptan 40 mg tab script. She said that they have been trying to get a hold of our office to let us know that they need a new script forthis. Patient said that the script needs to be good for 1 year and is for 3 month supply. Patient's callback# if needed: [phone]. * Telephone Encounter - Charo Jolley RN - 05/06/2020 3:59 PM EST Per charting this was sent electronically 04/22/2020. Can you call pharmacy to see what issue is? Charo Jolley RN 05/06/20 [id number] documented in this encounter Plan of Treatment Not on file documented as of this encounter Visit Diagnoses Not on filedocumented in this encounter Care Teams Station Installer And Repairer Relationship Specialty Start Date End Date Pankaj Arevalo MD PCP - General 09/08/17 documented as of this encounter
--- OUTSIDE RECORDS SUMMARY | 2025-02-19 08:43 | XMS_ITS | Clinical Summary ---
Author Organization [facility] Address [address], [address] [place] [address] Care Team Providers Care Remediation Project Engineer Name Role Phone Pankaj Arevalo MD Primary Care Provider [phone] Allergies Active Allergy Reactions Criticality Noted Date Comments Hydrocodone Other (See Comments) 02/10/2018 Headaches Morphine Nausea And Vomiting,Other (See Comments) Low 01/06/2018 Migraine Oxycodone Nausea And Vomiting Low 04/18/2018 Can take 1/2 tab, but full tab makes her sick Progesterone Other (See Comments) 04/17/2018 Speeds up metabolism Tramadol 03/17/2018 Tooth sensitivity Medications vitamin D (CHOLECALCIFEROL ) 1000 UNIT TABS tablet Take 1,000 Units by mouth daily Active omeprazole (PRILOSEC) 20 MG delayed release capsule Take 20 mg by mouth daily Active Garlic 500 MG CAPS Take 1 capsule by mouth 2 times daily Active pilocarpine (SALAGEN) 5 MG tablet Take 5 mg by mouth daily Active doxycycline monohydrate (MONODOX) 50 MG capsuleIndicatio ns:takes for rosacea Take 50 mg by mouth daily Active Ferrous Sulfate (IRON) 325 (65 Fe) MG TABS Take 1 tablet by mouth daily Active Evolocumab (REPATHA SURECLICK) 140 MG/ML SOAJ Inject 140 mg into the skin every 14 days Active meloxicam (MOBIC) 15 MG tablet Take 15 mg by mouth daily Active dicyclomine (BENTYL) 20 MG tablet Take 20 mg by mouth every 6 hours Active eletriptan (RELPAX) 40 MG tablet Take 40 mg by mouth once as needed may repeat in 2 hours if necessary Active Onabotulinumtoxi nA (BOTOX IJ) Inject as directed every 3 months Active meclizine (ANTIVERT) 25 MG tablet Take 25 mg by mouth 3 times daily as needed Active scopolamine (TRANSDERM-SCOP) transdermal patch Place 1 patch onto the skin every 72 hours Active Transdermal Patch PTCH by Does not apply route Active Active Problems Problem Noted Date Diagnosed Date Herniated nucleus pulposus, C4-5 04/17/2018 Family History * Patient is adopted Medical History Relation Name Comments Mental Illness Daughter x 1 anxiety Other Daughter x 1 exposed to TB a s a child Heart Disease Father Stroke Mother Relation Name Status Comments Brother 1 x 3 Alive unknown medical history, patient was adopted Brother 2 x 1 (Age 2) Daughter x 1 Alive Father (Age 70) Mother (Age 70) Sister x 2 Alive unknown medical issues, patient was adopted Social History Tobacco Use Types Packs/Day Years Used Date Smoking Tobacco: Former Cigarettes 2015 Smokeless Tobacco: Never Alcohol Use Standard Drinks/Week Comments Yes 0 (1 standard drink = 0.6 oz pur e alcohol) monthly Comments No Sex and Gender Information Value Date Recorded Sex Assigned at Female 2020 10:26 AM EDT Legal Sex Female 1:14 PM EDT Gender Identity Female 2020 10:26 AM EDT Sexual Orientation Straight 2020 10 :26 AM EDT Last Filed Vital Signs Vital Sign Reading Time Taken Comments Blood Pressure 138/80 04/18/2018 3:00 PM EST Pulse 112 04/18/2018 3:00 PM EST Temperature 36.7 C (98 F) 05/30/2020 2:18 PM EST Respiratory Rate 12 04/18/2018 3:00 PM EST Oxygen Saturation 95% 04/18/2018 3:00 PM EST Inhaled Oxygen Concentration - - Weight 81.6 kg (180 lb) 05/30/2020 2:18 PM EST Height 167.6 cm (5' 6 ) 05/30/2020 2:18 PM EST Body Mass Index 29.05 05/30/2020 2:18 PM EST Plan of Treatment Not on file Medical Devices Implanted Type Area Coating Mixer Supervisor Device Identifier Shelf Expiration Date Model / Serial / Lot Kit Sealant Surgiflo Hemostatic Matrix Implanted:Qty: 1 on 04/18/2018 by Radu Pulliam MD at [facility] Bone/Gra ft/Tissu e/Human/ Synth N/A: Spine Cervical JNJ: [employer]-PM M 12/21/2019 [id number] / / [id number] Triad Cc 8 X 11 X 14mm Implanted:Qty: 1 on 04/18/2018 by Radu Pulliam MD at [facility] Bone/Gra ft/Tissu e/Human/ Synth N/A: Spine Cervical [employer]-PMM 12/19/2022 [id number] / / Plate [place] T 26mm Lvl 1 Implanted:Qty: 1 on 04/18/2018 by Radu Pulliam MD at [facility] Screw/Pl ate/Nail /[place] N/A: Spine Cervical [employer]-PMM [id number] / / Screw [place] T Pattie Self Tap 4x13mm Implanted:Qty: 2 on 04/18/2018 by Radu Pulliam MD at [facility] Screw/Pl ate/Nail /[place] N/A: Spine Cervical [employer]-PMM [id number] / / Screw [place] T 4.5x13mm Implanted:Qty: 2 on 04/18/2018 by Radu Pulliam MD at [facility] Screw/Pl ate/Nail /[place] N/A: Spine Cervical [employer]-PMM [id number] / / Insurance [employer] Care Teams Remediation Project Engineer Relationship Specialty Start Date End Date Pankaj Arevalo MD [address] [place], [place] [phone] PCP - General Family Medicine 04/12/18
--- OUTSIDE RECORDS SUMMARY | 2025-02-19 08:43 | XMS_ITS | Encounter Summary ---
Author [facility] Address [id number] [address] [place] [address] Care Team Providers Care Metal Trades Instructor Name Role Phone Pankaj Arevalo MD Primary Care Provider [phone] Encounter Details Date Type Department Care Team (Late st Contact Info) Description 06/10/2022 Orders Only [facility] [address] [facility] [address] [place] [phone] External, Scanning Provider Social History Tobacco Use Types Packs/Day Years [...] Procedure Name Priority Date/Time Associated Diagnosis Comments TSH Routine 04/08/2022 documented in this encounter Results * TSH (04/08/2022) External Tsh 2.162 0.358 - 3.740 Comment:requested from in ba sket 04/08/2022 us Scanning Provider External LAB BLOOD ORDERABLES Edited Result - Final documented in this encounter Visit Diagnoses Not on filedocumented in this encounter Additional Health Concerns Assessment Noted Time PHQ-9 Depression Total Score: 0 10/30/19 21 11:21 AM EDT documented as of this encounter Care Teams Metal Trades Instructor Relationship Specialty Start Date End Date Pankaj Arevalo MD PCP - General 09/08/17 documented as of this encounter
--- OUTSIDE RECORDS SUMMARY | 2025-02-19 08:43 | XMS_ITS | Encounter Summary ---
Author Organization [facility] Address [id number] [address] [place] [address] Care Team Providers Care Line Patroller Name Role Phone Pankaj Arevalo MD Primary Care Provider [phone] Reason for Visit * Reason Onset Date Comments botox insurance coverage 11/07/2020 Encounter Details Date Type Department Care Team (Late st Contact Info) Description 11/07/2020 Telephone [facility] [address] [place] [phone] Belle Llamas, ORTIZ-MARY ANN [address] [place] [address] botox insurance coverage Social History Tobacco Use Types Packs/Day Years [...] have Coronavirus / COVID-19? No / Unsure 10/29/2020 11:06 AM EDT documented as of this encounter Miscellaneous Notes * Telephone Encounter - HELEN Vila - 11/07/2020 2:59 AM EDT Can you follow up with this patient? Thank you This patient voices concerns regarding [place] insurance forms being completed in a timely manner to continue coverage for her botox injections. * Telephone Encounter - Rand Yoder LPN - 11/07/2020 2:59 AM EDT I had obtained her prior authorization approval through [employer] on 07/18/2020 for her botox injections on 08/18/2020. I spoke with Jade at [facility]/[employer] and she states that [facility] handles the processing of her prior auth approvals and claims because she gets the botox from [facility]. If we were to buy and bill her medication the approval would still get approved through [employer] but [facility] would handle the processing of the claim. I will reach back out to Jyoti Hdz and advise her of the information above. I am also going to reach back out to Agustin Moore who is our chargemaster for botox to make sure that the provider is not submitting the Jcode as a buy and bill instead of patient supplied specialty pharmacy . Ref# from [facility] [id number]. * Telephone Encounter - HELEN Vila - 11/07/2020 2:59 AM EDT I appreciate your quick response. Yes, please inform Jyoti of the process. Thank you * Telephone Encounter - Rand Yoder LPN - 11/07/2020 2:59 AM EDT Left message on voicemail 1st attempt * Telephone Encounter - Rand Yoder LPN - 11/07/2020 2:59 AM EDT Spoke with patient and advised her that the prior authorization has been approved since June and she states that she has also spoken with elizabeth and that hopefully everything has been straightened out. I also spoke with Agustin Moore (chargemaster), and he is going to have her claim fixed to show that the patient has supplied her botox instead of Buy and Bill . * Telephone Encounter - HELEN Vila - 11/07/2020 2:59 AM EDT Thank you documented in this encounter Plan of Treatment Not on file documented as of this encounter Visit Diagnoses Not on filedocumented in this encounter Additional Health Concerns Assessment Noted Time PHQ-9 Depression Total Score: 0 10/30/19 21 11:21 AM EDT documented as of this encounter Care Teams Line Patroller Relationship Specialty Start Date End Date Pankaj Arevalo MD PCP - General 09/08/17 documented as of this encounter
--- OUTSIDE RECORDS SUMMARY | 2025-02-19 08:43 | XMS_ITS | Clinical Summary ---
Author Organization [facility] Address [id number] [address] [place] [address] Care Team Providers Care Hides And Skins Colorer Name Role Phone Pankaj Arevalo MD Primary Care Provider [phone] Allergies Active Allergy Reactions Criticality Noted Date Comments Typ-Sdvdbcufa-Fiacptvbchpzm 09/09/19 18 Hydrocodone Medium 03/13/2019 Morphine 09/08/2017 Oxycodone Medium 03/13/2019 Progesterone 03/14/2018 Tramadol 09/08/2017 Only tolerates low dose Diazepam 04/07/2020 hangover Medications omeprazole (PriLOSEC) 20 mg capsule Take 2 capsules (40 mg total) by mouth in the morning and 2 capsules (40 mg total) before bedtime. Active cyclobenzaprine (FLEXERIL) 10 mg tablet Take 1 tablet (10 mg total) by mouth nightly. Active garlic 100 mg tablet Take by mouth 2 (two) times a day. Active onabotulinumtoxinA (BOTOX) 100 unit recon soln Inject into the appropriate muscle once. Active evolocumab (REPATHA SURECLICK) 140 mg/mL pen injector Inject 140 mg under the skin every 14 (fourteen) days. Active scopolamine (TRANSDERM-SCOP) 1 [address] over [address] 1 patch on the skin as needed. Active meclizine (ANTIVERT) 25 mg tablet Take 1 tablet (25 mg total) by mouth as needed for dizziness. Active lancets 30 gauge misc by miscellaneous route. Active blood sugar diagnostic strip by miscellaneous route. Active hyoscyamine sulfate 0.125 mg-0.25 mg (0.375 mg) tablet,ext release multiphase Take by mouth once daily. Active ondansetron ODT (ZOFRAN ODT) 4 mg disintegrating tabletIndications: Chronic migraine without aura without status migrainosus, not intractable Dissolve 1 tablet (4 mg total) on tongue every 8 (eight) hours as needed for nausea or vomiting. 30 tablet 1 04/07/20 20 Active eletriptan (RELPAX) 40 mg tabletIndications: Chronic migraine without aura without status migrainosus, not intractable TAKE 1 TABLET BY MOUTH AT ONSET OF HEADACHE. REPEAT IN 2 HOURS IF NEEDED. LIMIT USE 2 TABLETS PER 24 HOURS, 2 DAYS A WEEK. 18 tablet 5 03/12/20 21 Active hydrALAZINE (APRESOLINE) 50 mg tablet Take 1 tablet (50 mg total) by mouth 3 (three) times a day. Active pilocarpine (SALAGEN) 5 mg tablet Take 1 tablet (5 mg total) by mouth 3 (three) times a day. Active rosuvastatin (CRESTOR) 5 mg tablet Take 1 tablet (5 mg total) by mouth in the morning. Active cholecalciferol, vitamin D3, 2,000 units tablet Take by mouth daily. Active simvastatin (ZOCOR) 10 mg tablet TAKE 1/2 TABLET BY MOUTH EVERY NIGHT 04/12/20 22 Active levothyroxine (SYNTHROID, LEVOTHROID) 50 MCG tablet 1 tablet in the morning on an empty stomach Orally Once a day Strength: 50 mcg 90 tablet 3 05/06/20 22 Active Active Problems Problem Noted Date Diagnosed Date Neck pain 03/19/2018 Chronic migraine without aur a without status migrainosus, not intractable 09/10/2017 Family History Medical History Relation Name Comments Heart disease Father Adopted Lucio's disease Maternal Grandmother Heart disease Mother Adopted Stroke Mother Adopted Relation Name Status Comments Father Adopted Maternal Grandmother Mother Adopted Social History Tobacco Use Types Packs/Day Years Used Date Smoking Tobacco: Former Cigarettes Smokeless Tobacco: Never Tobacco Cessation:Counseling Given: Not Answered Alcohol Use Standard Drinks/Week Comments Yes 1 [...] Orientation Straight 02/09/2022 10 :45 AM EDT Last Filed Vital Signs Vital Sign Reading Time Taken Comments Blood Pressure 134/75 05/06/2022 3:43 PM EST Pulse 92 05/06/2022 3:43 PM EST Temperature - - Respiratory Rate - - Oxygen Saturation - - Inhaled Oxygen Concentration - - Weight 88 kg (194 lb) 05/06/2022 3:43 PM EST Height 166.2 cm (5' 5.43 ) 05/04/2021 1:47 PM ES T Body Mass Index 31.86 05/04/2021 1:47 PM EST Plan of Treatment Health Maintenance Due Date Last Done Comments Depression Screening 1968 Tobacco Screening 1968 Zoster (Shingles) Vaccine (2 of 3) 05/11/2017 03/16/2017 Fall Risk Screening 2021 Adult BMI Screening 05/06/2023 05/06/2022 COVID-19 Vaccine (2 - 2024-2 6 season) 2025 03/09/2021 Influenza Vaccine 01/21/2025 03/18/2022, , 03/30/2021, Additional history exists DTaP,Tdap and Td Vaccines (2 - Td or Tdap) 07/05/2029 07/05/2019 Medical Devices Not on file Insurance [employer] Care Teams Hides And Skins Colorer Relationship Specialty Start Date End Date Pankaj Arevalo MD PCP - General 09/08/17
--- OUTSIDE RECORDS SUMMARY | 2025-02-19 08:43 | XMS_ITS | Encounter Summary ---
Author Organization [facility] Address [id number] [address] [place] [address] Care Team Providers Care Emergency Care Attendant Name Role Phone Pankaj Arevalo MD Primary Care Provider [phone] Reason for Visit * Reason Onset Date Comments BOTOX Claim Authorization 09/15/2020 Encounter Details Date Type Department Care Team (Late st Contact Info) Description 09/15/2020 Telephone [facility] [address] [place] [phone] Monica Rangel CMA BOTOX Claim Authorization Social History Tobacco Use Types Packs/Day Years [...] encounter Miscellaneous Notes * Telephone Encounter - Monica Rangel CMA - 09/15/2020 1:38 PM EDT Per voicemail 09/15/2020 10:16 am; The patient called in regards to BOTOX. The patient stated that she received notification that her claim for BOTOX has been denied due to our services not getting authorization for BOTOX. The patient stated that she is being charged $4633. She is requesting a call back. The patient was last in clinic for BOTOX on 08/18/2020 and is scheduled for her next BOTOX injection 12/03/2020. * Telephone Encounter - Rand Yoder LPN - 09/15/2020 1:38 PM EDT Spoke with patient and advised her that there is a prior authorization on file valid from 07/18/2020-08/20/2021. I also advised patient that I had spoken with Agustin Moore (charge master) regarding her account and he states that it was currently being reviewed and he let them know that there is a prior authorization on file. Patient states that she will check back next week to check the status. documented in this encounter Plan of Treatment Not on file documented as of this encounter Visit Diagnoses Not on filedocumented in this encounter Care Teams Emergency Care Attendant Relationship Specialty Start Date End Date Pankaj Arevalo MD PCP - General 09/08/17 documented as of this encounter
--- OUTSIDE RECORDS SUMMARY | 2025-02-19 08:43 | XMS_ITS | Encounter Summary ---
Author Organization [facility] Address [address], [address] [place] [address] Care Team Providers Care Comfort Station Attendant Name Role Phone Pankaj Arevalo MD Primary Care Provider [phone] Reason for Visit * Reason Onset Date Comments Other 01/15/2019 Records from -12/14/18 faxed to [facility]. Encounter Details Date Type Department Care Team (Late st Contact Info) Description 01/15/2019 Telephone [employer]. [address], [address] [place] [address] Radu Pulliam MD Other (Records from 05/10/18-12/14/18 faxed to [facility].) Social History Tobacco Use Types Packs/Day Years Used Date Smoking Tobacco: Former Cigarettes 1 2015 Smokeless Tobacco: Never Alcohol Use Standard Drinks/Week Comments Yes 0 (1 standard drink = 0.6 oz pur e alcohol) monthly Comments No Sex and Gender Information Value Date Recorded Sex Assigned at Female 2020 10:26 AM EDT Legal Sex Female 1:14 PM EDT Gender Identity Female 2020 10:26 AM EDT Sexual Orientation Straight 2020 10 :26 AM EDT documented as of this encounter Plan of Treatment Not on file documented as of this encounter Visit Diagnoses Not on filedocumented in this encounter Care Teams Comfort Station Attendant Relationship Specialty Start Date End Date Pankaj Arevalo MD [address] [phone] PCP - General Family Medicine 04/12/18 documented as of this encounter
--- OUTSIDE RECORDS SUMMARY | 2025-02-19 08:43 | XMS_ITS | Encounter Summary ---
Author Organization [facility] Address [id number] [address] [place] [address] Care Team Providers Care Counseling Center Director Name Role Phone Pankaj Arevalo MD Primary Care Provider [phone] Reason for Visit * Reason Onset Date Comments Med Refill 05/02/2020 Encounter Details Date Type Department Care Team (Late st Contact Info) Description 05/02/2020 Refill [facility] [address] [place] [phone] Saundra Dacosta, SAUMYA Social History Tobacco Use Types Packs/Day Years [...] PM EST documented as of this encounter Plan of Treatment Not on file documented as of this encounter Visit Diagnoses Not on filedocumented in this encounter Care Teams Counseling Center Director Relationship Specialty Start Date End Date Pankaj Arevalo MD PCP - General 09/08/17 documented as of this encounter
--- OUTSIDE RECORDS SUMMARY | 2025-02-19 08:44 | XMS_ITS | Patient Health Record ---
Author Organization [facility] in [place] Address [address] [place] [address] Care Team Providers Care Facility Maintenance Mechanic Name Role Phone Harvey Osei Primary Care Provider Allergies Allergen (clinical drug ingredient) Drug/Non Drug Allergy documented on EMR Reaction Allergy Type Onset Date Status Levaquin tendon pain Drug Allergy Activ e morphine Morphine Sulfate ROSS Drug Allergy Active Substance with 7-phlbuqa-4-methylglut aryl-coenzyme A reductase inhibitor mechanism of action (substance) Statins muscle achy Drug Allergy Active Results Component Value Reference Range Notes XR wrist LT min 3V Reviewed date:08/07/2024 08:24:58 PM Interpretation: Performing Lab: Notes/Report: Source Facility: [place] [address] XRay Report Signed Patient: BEHZAD ENRIQUEZ MR#: [id number] : 1955 Acct:[id number] Age/Sex: 68 / F ADM Date: 08/06/24 Loc: EC Attending Dr: Gary Mendez M.D. Ordering Physician: Gary Mendez M.D. Date of Service: 08/06/24 Procedure(s): XR wrist LT min 3V Accession Number(s): [id number] cc: Gary Mendez M.D.; Makeda Osei M.D. [place] [address] Patient Name: BEHZAD ENRIQUEZ MRN: [id number] date: 1955 Sex: F Assigned Patient Location: Current Patient Location: Accession/Order Number: [id number] Exam Date: 08/06/2024 13:21 Report Date: 08/06/2024 13:22 At the request of: GARY MENDEZ MD Procedure: XR wrist LT min 3V LEFT WRIST - 3 views CLINICAL HISTORY: Chronic left wrist pain for 4 months. COMPARISON: Left wrist 05/10/2024 FINDINGS: No focal soft tissue abnormality. No acute bony process is seen. Mild degenerative changes of the carpus predominantly at the scaphotrapezial joint without bony erosions. XR/XR wrist LT min 3V IMPRESSION: MILD DEGENERATIVE CHANGES OF THE CARPUS WITHOUT ACUTE BONY PROCESS. Impression dictated by: Adam Araya Jr., D.O.08/06/2024 1:22 PM Dictation Location: [place] [address] Electronically authenticated by: [id number] Y Date: 08/06/2024 13:22 Dictated By: Adam Araya M.D. Signed By: 08/06/24 1325 DD/ 1322 TD/TT: Hadoop Administrator: XR wrist LT min 3V Reviewed date:05/21/2024 08:25:07 PM Interpretation: Performing Lab: Notes/Report: Source Facility: [place] [address] [place] [address] XRay Report Signed Patient: BEHZAD ENRIQUEZ MR#: [id number] : 1955 Acct:[id number] Age/Sex: 68 / F ADM Date: 05/10/24 Loc: RAD Attending Dr: Makeda Osei M.D. Ordering Physician: Makeda Osei M.D. Date of Service: 05/10/24 Procedure(s): XR wrist LT min 3V Accession Number(s): [id number] cc: Makeda Osei M.D. [place] [address] Patient Name: BEHZAD ENRIQUEZ MRN: [id number] date: 1955 Sex: F Assigned Patient Location: [facility] Current Patient Location: Accession/Order Number: [id number] Exam Date: 05/10/2024 11:03 Report Date: 05/12/2024 06:52 At the request of: MAKEDA OSEI Procedure: XR wrist LT min 3V PROCEDURE: XR wrist LT min 3V HISTORY: De Quervain's Disease ; first metacarpal pain and forearm pain since falling 4 weeks ago COMPARISON: None. FINDINGS: BONES:No fracture, acute abnormality, or significant arthropathy. SOFT TISSUES:No visible soft tissue swelling. EFFUSION:None visible. OTHER: Negative. XR/XR wrist LT min 3V IMPRESSION: 1. No acute bone abnormality or significant degenerative joint disease to account for patient's symptoms. Electronically authenticated by: GARY GOODSON Date: 05/12/2024 06:52 Dictated By: Gary Goodson M.D. Signed By: 05/12/2454 DD/ TD/TT: Hadoop Administrator: Reason For Referral Diagnosis 1 De Quervain's diseas e (tenosynovitis) (M65.4) Referral Organization [facility] Referring Provider First Name Harvey Referring Provider Last Name [facility] Referring Provider [facility] Referred Provider Gary Mendez Referred Provider Specialty Orthopedic S urgery Referral Priority Routine Diagnosis 1 Day esophagus (K 22.70) Referral Organization [facility] Referring Provider First Name Harvey Referring Provider Last Name [facility] Referring Provider [facility] Referred Provider Jt Wood Referred Provider Specialty General Surg leeann Referral Priority Routine Diagnosis 1 Day esophagus (K 22.70) Referral Organization [facility] Referring Provider First Name Harvey Referring Provider Last Name [facility] Referring Provider [facility] Referred Provider Iglesia Nguyen Referred Provider Specialty Gastroentero logy Referral Priority Routine Medications Medication SIG (Take, Route, Frequency, Duration) Notes Start Date End Date Status TobraDex 0.3-0.1 % 1 application into t he lower eyelid of affected eye Ophthalmic Three times a day 01/10/2025 Active Azelastine HCl 0.05 % 1 drop into affect ed eye Ophthalmic qd 01/10/2025 Active Hyoscyamine Sulfate ER 0.375 MG 1 tablet Orally every 12 hrs PRN Active Triamcinolone Acetonide Active IBU 800 MG 1 tablet with food o r milk as needed Orally every 8 hrs PRN Active Zozssozh-Sdnrvltxj-Iifdescg 3.5-66721-3.1 1/4 inch to 1/2 inch to affected eye area Ophthalmic Four times a day; Duration: 7 days 01/11/2025 Active Blood Glucose Meter -- use meter to chec k glucose once daily DX E11.65; Duration: 365 days 03/25/2023 Active Simvastatin 10 MG 1 tablet Orally Q HS ; Duration: 90 days Active Dicyclomine HCl 20 MG 1 tablet Orally Th ree times a day; Duration: 30 day(s) PRN 11/16/2022 Active Test Strips - 1 strip via meter da cortney DX E11.65; Duration: 90 days 03/25/2023 Active Demerol PRN Active Levothyroxine Sodium 50 MCG 1 tablet in the morning on an empty stomach Orally Once a day; Duration: 90 days Active HYDROcodone-Acetaminophen PRN Active Meclizine HCl 25 MG 1 to 2 tablets Orally QID PRN Active tiZANidine HCl PRN Activ e Ketoconazole 2 % 1 application Head Grower ally Twice a day; Duration: 14 PRN 11/28/2023 Active oxyCODONE HCl PRN Active Lancets 33G - 1 lancet to poke fin luisito once daily DX E11.65; Duration: 90 days 03/25/2023 Active Scopolamine Active Pantoprazole Sodium 40 MG 1 tablet Orall y Once a day; Duration: 90 days Active Relpax 40 MG 1 tablet Orally at o nset may repeat in 2 hours; Duration: 90 days PRN Active Ondansetron HCl 8 MG 1 tablet Orally Onc e a day; Duration: 90 days 09/29/2023 Active Immunizations Vaccine Route Administration Date Status Comme nts Flu, Fluad (55039) 65 yrs+, single-dose syringe (0603-0605) IM Intramuscular 02/24/2023 Administered Flu, Fluzone High-Dose (77394) 65 yrs and older, single-dose syringe (5947-6262) Unknown 03/08/2024 Administered Social History Tobacco Use: Social History Observation Description Date Details (start date - stop date) Former Smoker 07/21/1976 - 07/22/2015 Tobacco Use/Smoking Question Answer Notes Patient is a former smoker When did you start smoking? 07/21/1976 When did you stop smoking? 07/22/2015 How long has it been since you last smoked? > 10 years Alcohol Screen (Audit-C) Question Answer Notes Did you have a drink containing alcohol in the p ast year? No Points 0 Interpretation Negative AUDIT-C (Standard) Question Answer Notes Did you have a drink containing alcohol in the p ast year? No Points 0 Interpretation Negative Problems Problem Type SNOMED Code ICD Code Onset Dates Problem Status W/U Status Risk Notes Problem Malignant neoplasm o f female breast (266335446) Malignant neoplasm of unspecified site of right female breast (C50.911) Active confirmed Problem Hyperglycemia due to type 2 diabetes mellitus (989643931680239) Type 2 diabetes mellitus with hyperglycemia (E11.65) Active confirmed Problem Jaw pain (042455951) Jaw pain (R68.84) Active confirmed Problem Onychomycosis (493660466) Onychomycosis (B35.1) Active confirmed Problem Eczema (93288441) Eczema (L30.9) Active confirm ed Problem Shoulder pain (63881341) Shoulder pain (M25.519) Active confirmed Problem 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 Problem Migraine (90656915) Migraine (G43.909) Active confirmed Problem Day esophagus (853249420) 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) Active confirmed Problem Well adult (814884679) Well adul t (Z00.00) Active confirmed Problem Radial styloid tenosynovitis (58964594) De Quervain's disease (tenosynovitis) (M65.4) Active confirmed Problem Pure hypercholesterolemia (699502343) Pure hypercholestero lemia, unspecified (E78.00) Active confirmed Problem Small bowel obstruction (785154822) Small bowel obstruction (K56.609) Active confirmed Vital Signs Blood pressure diastolic 88 mm Hg 01/10/2025 Height 66 in 01/10/2025 Blood pressure systolic 124 mm Hg 01/10/2025 Weight 178.0 lbs 01/10/2025 BMI 28.73 kg/m2 01/10/2025 Encounters Encounter Location Date Provider Diagnosis [facility] [address] [facility] [place] [address] 05/10/2024 Harvey Hoy De Quervain's diseas e (tenosynovitis) M65.4 [facility] [address] [place] [facility] [place] [address] 07/24/2024 Harvey Hoy De Quervain's diseas e (tenosynovitis) M65.4 [facility] [address] [place] [facility] [place] [address] 11/28/2024 Harvey Hoy Jaw pain R68.84 [facility] [address] [facility] [place] [address] 01/10/2025 Harvey Hoy Eczema L30.9 and Wel l adult Z00.00 [facility] [address] [place] [facility] [place] [address] 02/27/2024 Harvey [facility] [address] [place] [facility] [place] [address] 04/04/2024 Harvey [facility] [address] [place] [facility] [place] [address] 04/17/2024 Harvey [facility] [address] [place] [facility] [place] [address] 05/10/2024 Harvey [facility] [address] [place] [facility] [place] [address] 05/17/2024 Harvey Braggy Malignant neoplasm o f unspecified site of right female breast C50.911 [facility] [address] [facility] [place] [address] 05/21/2024 Harvey Osei [facility] [address] [place] [facility] [place] [address] 07/04/2024 Harvey kacey [facility] [address] [facility] [place] [address] 07/06/2024 Harvey [facility] [address] [place] [facility] [place] [address] 07/10/2024 Harvey [facility] [address] [place] [facility] [place] [address] 07/31/2024 Harvey Hoy Malignant neoplasm o f unspecified site of right female breast C50.911 [facility] [address] [facility] [place] [address] 08/09/2024 Harvey Hoy [facility] [address] [facility] [place] [address] 08/15/2024 Harvey Hoy [facility] [address] [facility] [place] [address] 09/10/2024 Harvey Hoy Fatigue R53.83 [facility] [address] [facility] [place] [address] 10/22/2024 Harvey Hoy Day esophagus K22.70 [facility] [address] [facility] [place] [address] 10/30/2024 Harvey Hoy Day esophagus K22.70 [facility] [address] [facility] [place] [address] 11/22/2024 Harvey Hoy [facility] [address] [facility] [place] [address] 11/26/2024 Harvey Braggy [facility] [address] [place] [place] [address] 12/10/2024 Harvey Hoy Jaw pain R68.84 [place] [address] [place] [place] [address] 01/11/2025 Harvey Braggy Assessments Encounter Date Diagnosis (ICD Code) Assessment Notes Treatment Notes Treatment Clinical Notes Section Notes 05/10/2024 De Quervain's disease (tenosynovitis) (ICD-10 - M65.4) 07/24/2024 De Quervain's disease (tenosynovitis) (ICD-10 - M65.4) 11/28/2024 Jaw pain (ICD-10 - R68.84) 01/10/2025 Eczema (ICD-10 - L30.9) 01/10/2025 Well adult (ICD-10 - Z00.00) 05/17/2024 Malignant neoplasm of unspecified site of right female breast (ICD-10 - C50.911) 07/31/2024 Malignant neoplasm of unspecified site of right female breast (ICD-10 - C50.911) 09/10/2024 Fatigue (ICD-10 - R53.83) 10/22/2024 Day esophagus (ICD-10 - K22.70) 10/30/2024 Day esophagus (ICD-10 - K22.70) 12/10/2024 Jaw pain (ICD-10 - R68.84) Plan Of Treatment Pending Test Test Name Order Date HEMOGLOBIN A1C (GLYCO) 01/10/2025 IRON, TOTAL 01/10/2025 LIPID PANEL (CHOL/TRIG/HDL/LDL) 01/11/20 25 VITAMIN D, 25 LEVEL (TOTAL) 01/10/2025 MRI Cervical Spine w/wo contrast 024 ESR 09/10/2024 CREATININE 10/13/2023 Insulin Level 01/10/2025 FLUORO UPPER GI WITH AIR WITH KUB AND SM ALL BOWEL 10/27/2022 STOOL OCCULT BLOOD 01/10/2025 CBC AUTO DIFF 09/10/2024 CRP 09/10/2024 ALLEN-NAYLOR VIRUS (EBV) AB PROFILE 08/22 FERRITIN 09/28/2022 H PYLORI ANTIBODY IGG 09/28/2022 IRON 09/28/2022 LIPID PROFILE 05/30/2023 LIVER PROFILE 05/30/2023 THYROID PANEL (T4/TSH/FREE T3) CMP (COMP MET GANT) w/eGFR CKD-EPI 2024 CBC WITH DIFF 01/10/2025 Insurance Providers Payer Name Payer Address Payer Phone Subscriber Number Group Number Insured Name Patient Relationship to Insured Coverage Start Date Coverage End Date [place] [address] [place] [address] [id number] Behzad Enriquez Self - patient is the insured Medications Administered Medication Instructions Date of Administration Dosage Notes Ketorolac Tromethamine 09/29/2023 60 mg 60 Orphenadrine Citrate 09/29/2023 60 mg 60 Medical (General) History Medical History History ICD Code Acute telogen effluvium L65.0 Acute COVID-19 U07.1 Acute migraine G43.909 Autonomic disease G90.9 Gammaherpesviral mononucleosis with othe r complications B27.09 Benign essential hypertension I10 Iron deficiency E61.1 Age-related bone loss M85.80 Day esophagus K22.70 Diaphragmatic hernia K44.9 Controlled type 2 diabetes mellitus E11. 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
--- OUTSIDE RECORDS SUMMARY | 2025-02-19 08:44 | XMS_ITS | Clinical Summary ---
Author Organization [facility] Address [address] [place] [address] Care Team Providers Care Integrated Campaign Manager Name Role Phone Pankaj Arevalo MD Primary Care Provider [phone] Allergies Active Allergy Reactions Criticality Noted Date Comments Diazepam 04/07/2020 Other Reaction(s): Other, Other: See Comments hangover sick-headache hangover sick-headache Other Reaction(s): Other: See Comments hangover Diphenhydramine 11/05/2019 Other Reaction(s): Hyperactive, Intolerance, Other Other Reaction(s): Intolerance Hydrocodone Medium 02/10/2018 Other Reaction(s): GI Upset, Not available, Other (See Comments), Other: See Comments Other reaction(s): Other: See Comments Headaches Headaches Headaches Morphine GI intolerance,Headac he,Nausea And Vomiting,Unknown Low 02/20/2010 Other Reaction(s): GI Upset, other, Other: See Comments Other reaction(s): GI Upset, Unknown Migraine Migraine Migraine Other Reaction(s): GI Upset, other, Other: See Comments, Unknown, vomiting, Vomiting Other Reaction(s): GI Upset, Other (See Comments), Other: See Comments, Unknown, Vomiting Nalbuphine Rash Low 11/05/2019 Other Reaction(s): Insomnia Oxycodone Nausea And Vomiting Medium 04/18/2018 Other Reaction(s): GI Upset, Not available, Other Can take 1/2 tab, but full tab makes her sick Can take 1/2 tab, but full tab makes her sick Can take 1/2 tab, but full tab makes her sick Other Reaction(s): GI Upset, Not available Progesterone 03/14/2018 Other Reaction(s): GI Upset, Other (See Comments), Other: See Comments Other reaction(s): Other: See Comments Speeds up metabolism Speeds up metabolism Weight gain and voice hoarse Speeds up metabolism Speeds up metabolism Weight gain and voice hoarse Pseudoephedrine Hcl 04/02/2019 Other Reaction(s): Hyperactive, severe stimulation Other Reaction(s): Intolerance ANY Decongestant-Hyperac tive Statins 08/24/2021 Other Reaction(s): Unknown Tramadol Itching Low 09/05/2013 Other Reaction(s): Unknown, Unknown Tooth sensitivity Only tolerates low dose Tooth sensitivity Only tolerates low dose Only tolerates low dose Tooth sensitivity Only tolerates low dose Tooth sensitivity Only tolerates low dose Only tolerates low dose Other Reaction(s): Unknown Wound Dressing Adhesive Other 03/01/2022 Other Reaction(s): Not available Medications diazePAM (Valium) 2 MG tablet as needed Active dicyclomine (Bentyl) 20 MG tablet every 8 (eight) hours. 3 Active eletriptan (Relpax) 40 MG tablet Take 1 dose pk every day by oral route as needed. 2 Active levothyroxine (Synthroid, Levoxyl) 50 MCG tablet TAKE 1 TABLET BY MOUTH IN THE MORNING ON AN EMPTY STOMACH ONCE A DAY. Active meclizine (Antivert) 25 MG tablet TAKE 1-2 TABLETS BY MOUTH FOUR TIMES A DAY NEEDED FOR DIZZINESS Active pantoprazole (ProtoNix) 40 MG EC tablet Take 40 mg by mouth in the morning. Active scopolamine (Transderm-Scop) 1 mg/72 hr patch 72 hour patch APPLY ONE PATCH ON THE SKIN EVERY 3 DAYS. REMOVE OLD PATCH 3 Active triamcinolone (Kenalog) 0.1 % cream Apply topically 2 (two) times a day. to affected area 3 Active simvastatin (Zocor) 10 MG tablet TAKE ONE-HALF TABLET BY MOUTH EVERY NIGHT 3 Active ondansetron ODT (Zofran-ODT) 4 MG disintegrating tablet Active ibuprofen 800 MG tablet TAKE 1 TABLET BY MOUTH EVERY 6 TO 8 HOURS NEEDED 2 Active hyoscyamine (Levsin) 0.125 MG SL tablet DISSOLVE 1 TABLET UNDER THE TONGUE EVERY 6 HOURS NEEDED 3 Active HYDROcodone-acetam inophen (Vicodin) 10-300 MG tablet Take 1 tablet every 6 hours by oral route. Active gabapentin (Neurontin) 300 MG capsule Take 300 mg by mouth in the morning and 300 mg at noon and 300 mg in the evening. 4 Active Active Problems Problem Noted Date Diagnosed Date Age-related nuclear cataract of both eyes 2024 Dry eyes 06/18/2024 Blepharitis of upper and lower eyelids of both e yes 06/18/2024 Malignant neoplasm of upper- outer quadrant of right breast in female, estrogen receptor negative 02/02/2023 Encounter for nonprocreative genetic counseling and testing 02/02/2023 Autonomic dysfunction 02/01/2023 BMI 31.0-31.9,adult 02/01/2023 Cervical radiculopathy 02/01/2023 Thyroid nodule 02/01/2023 Diverticulitis 02/01/2023 Eczema 02/01/2023 Epigastric pain 02/01/2023 Fatty liver 02/01/2023 Fibrocystic breast 02/01/2023 Gastric polyp 02/01/2023 Herniated cervical disc 02/01/2023 History of colonic polyps 02/01/2023 History of hysterectomy 02/01/2023 HTN (hypertension) 02/01/2023 Hyperhidrosis 02/01/2023 Iron deficiency anemia 02/01/2023 Lumbar spondylosis 02/01/2023 Meckel diverticulum 02/01/2023 Osteoporosis 02/01/2023 Rosacea 02/01/2023 Sensorineural hearing loss ( SNHL) of right ear with unrestricted hearing of left ear 02/01/2023 Sensorineural hearing loss, bilateral 02/01/2023 Tricuspid regurgitation 02/01/2023 Vertigo 02/01/2023 Obesity, Class I, BMI 30-34.9 04/30/2021 Essential (primary) hypertension 04/27/2021 Overview (02/01/2023): Last Assessment & Plan: Not on meds BP today 135/88 Autonomic neuropathy 03/01/2021 Paraesophageal hernia 02/26/2021 Chronic Salty-Bolton virus (EBV) infection syndr ome 03/21/2019 History of cervical spinal arthrodesis 9 Overview (02/01/2023): x2 last March 2018 Day's esophagus determined by biopsy 019 Herniated nucleus pulposus, C4-5 04/17/2018 Neck pain 03/19/2018 Adopted 10/24/2017 Type 2 diabetes mellitus 10/24/2017 Chronic migraine without aur a without status migrainosus, not intractable 09/10/2017 Diabetes type 2, controlled 02/14/2017 Overview (02/01/2023): Last Assessment & Plan: Diet controlled Last A1c 7.2 (04/09/2021) Chronic headache disorder 04/02/2014 Nausea and vomiting 10/22/2013 Overview (02/01/2023): Post op nausea Cervical vertebral fusion 01/11/2013 Headache 01/21/2012 Dyspnea 12/15/2011 Tachycardia 12/15/2011 Migraine 08/26/2011 Overview (02/01/2023): Last Assessment & Plan: Stable on Eletriptan PRN, Excedrin PRN, Botox injections q3 months, Abdominal pain 08/22/2011 Variants of migraine with intractable migraine 0 07/29/2011 Chronic sinusitis 07/11/2011 Irritable bowel syndrome 07/11/2011 Orthostatic hypotension 07/11/2011 Refractory migraine without aura 07/05/2011 Hyperlipidemia 07/05/2011 Mixed hyperlipidemia 07/05/2011 Overview (02/01/2023): Last Assessment & Plan: Diet controlled History of lumbar spinal fusion 01/11/2005 Migraines, neuralgic 01/11/2005 History of high cholesterol 01/12/2000 Gastroesophageal reflux disease 01/11/1998 Hiatal hernia 01/22/1996 Postural orthostatic tachycardia syndrome 1959 Overview (02/01/2023): Added automatically from request for surgery [id number] Last Assessment & Plan: Stable on Levsin Patient avoid certain triggers, such as really hot weather Encounters Date Type Department Care Team Description 12/19/2024 11:30 AM EDT [facility] [address] [facility] [address] Tim Sun, DPM FACFAS Onychomycosis (Primary Dx); Type II diabetes mellitus with neurological manifestations (HCC); Pain in right toe(s); Pain in left toe(s) 12/19/2024 Bamboo flowsheet [facility] [address] [place] [phone] Tim Sun, DPM FACFAS 12/12/2024 Travel from Last 3 Months Immunizations Immunization Administration Dates Next Due Influenza, Seasonal, Quadriv alent, Adjuvanted 03/18/2022 Influenza, Unspecified 03/23/2016,02/20/2014 Influenza, injectable, MDCK, preservative free, quadrivalent 04/01/2021 Influenza, injectable, quadrivalent 04/23/2020,1 ,03/16/2017 Influenza, injectable, quadr ivalent, preservative free 03/29/2020 Pneumococcal Conjugate PCV 13 02/20/2013 Pneumococcal Polysaccharide PPSV23 02/16/2019, Polio, Unspecified 10/21/1960 Tdap 07/05/2019 Zoster, Unspecified 03/16/2017 Zoster, live 03/16/2017 Family History * Patient is adopted Medical History Relation Name Comments Heart disease Father Adopted Lucio's disease Maternal Grandmother Stroke Mother Adopted Relation Name Status Comments Daughter Alive 1 daughter Father Adopted Maternal Grandmother Mother Adopted Social History Tobacco Use Types Packs/Day Years Used Date Smoking Tobacco: Former Cigarettes 0.5 42 0 05/23/1972 - 05/23/2014 Smokeless Tobacco: Never Tobacco Cessation:Counseling Given: Not Answered Comments:Off and on Alcohol Use Standard Drinks/Week Comments Not Currently 0 (1 standard drink = 0.6 oz pure alcohol) caffeine intake : more than 4 cups per day Comments No Sex and Gender Information Value Date Recorded Sex Assigned at Female 01/11/2023 10:11 AM EDT Legal Sex Female 6:44 PM EDT Gender Identity Female 01/11/2023 10:11 AM EDT Sexual Orientation Straight 01/11/2023 10 :11 AM EDT Last Filed Vital Signs Vital Sign Reading Time Taken Comments Blood Pressure 126/74 12/19/2024 11:56 AM EDT Pulse 79 12/19/2024 11:56 AM EDT Temperature - - Respiratory Rate - - Oxygen Saturation - - Inhaled Oxygen Concentration - - Weight 81.6 kg (180 lb) 12/19/2024 11:56 AM EDT Height 167.6 cm (5' 6 ) 12/19/2024 11:56 AM EDT Body Mass Index 29.05 12/19/2024 11:56 AM EDT Plan of Treatment Upcoming Encounters Date Type Department Care Team (Late st Contact Info) Description 02/27/2025 1:50 PM EDT Office Visit [facility] [address] [place] [phone] Tim Sun, DPM FACFAS [address] [place] [address] 08/01/2025 10:45 AM EDT Office Visit [facility] [address] [place] D [address] [phone] Pam Gotti DO [address] [phone] Health Maintenance Due Date Last Done Comments CT Colonography 1956 FIT-DNA 1956 FIT 1956 FOBT 1956 Lung Cancer Screening Shared Decision Making 1956 Sigmoidoscopy 1955 Influenza Vaccine (#1) 2025 , 02/24/2023, 03/18/2022, Additional history exists Mammogram 08/21/2025 08/21/2024, 02/21, 02/21/2024, Additional history exists Colonoscopy 03/30/2026 03/30/2016, 02/22, 05/22/2010 Colorectal Cancer Screening 03/30/2026 Pneumococcal Vaccine: 65+ Years Completed 02/16/2019, 06/01/2013, 02/20/2013 Cervical Cancer Screening Discontinued HPV/Cotest Discontinued 05/19/2021 Pap Smear Discontinued Procedures Procedure Name Priority Date/Time Associated Diagnosis Comments BI MAMMOGRAM DIAGNOSTIC RIGHT Routine 01/18/2023 10:53 AM EDT Mass of breast, unspecified laterality Mass of right breast, unspecified quadrant Breast pain in female THINPREP TIS PAP REFLEX HPV MRNA E6/E7 (45210) Routine 05/19/2021 from Last 3 Months or Most Recently Relevant to Health Maintenance Results * Right diagnostic mammogram (01/18/2023 10:53 AM EDT) Pam Gotti DO IMG BI PROCEDURES Final Re sult * THINPREP TIS PAP REFLEX HPV MRNA E6/E7 ([id number]) (05/19/2021) CLINICAL INFORMATION: None given [facility] LMP: None given [facility]. PAP: None given [facility] BX: None given [facility] SOURCE: None given [facility] STATEMENT OF ADEQUACY: SATISFACTORY FOR EVALUATION [facility] INTERPRETATION/RES ULT: SEE COMMENT [facility] Comment: Negative for intraepithelial lesion or malignancy. Atrophic pattern; predominantly parabasal cells COMMENT: SEE COMMENT [facility] Comment: This Pap test has been evaluated with computer assisted technology. Parabasal cells in smears that lack maturation due to atrophy or other hormonal reasons cannot be differentiated from transformation zone cells. Accordingly, presence or absence of endocervical or transformation zone components cannot be reported in this patient. 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 COMMENT SEE COMMENT [facility] Comment: EXPLANATORY NOTE: The Pap is a screening test for cervical cancer. It is not a diagnostic test and is subject to false negative and false positive results. It is most reliable when a satisfactory sample, regularly obtained, is submitted with relevant clinical findings and history, and when the Pap result is evaluated along with historic and current clinical information. 05/19/2021 us Pam Gotti DO [facility] Final Resu lt [facility] from Last 3 Months or Most Recently Relevant to Health Maintenance Insurance MEDICARE [facility] Care Teams Integrated Campaign Manager Relationship Specialty Start Date End Date Pankaj Arevalo MD [address] [place] [phone] PCP - General Family Medicine 01/12/23
--- OUTSIDE RECORDS SUMMARY | 2025-02-19 08:44 | XMS_ITS | Encounter Summary ---
Author Organization [facility] [employer] [facility] Address [id number] [address] [place] [address] Care Team Providers Care Vendor Management Associate Name Role Phone Pankaj Arevalo MD Primary Care Provider [phone] Reason for Visit * Reason Onset Date Comments Botulinum Toxin Injection 04/07/2020 Encounter Details Date Type Department Care Team (Late st Contact Info) Description 04/07/[address] [facility] [address] [place] [phone] Maria Dolores Downs Botulinum Toxin Injection Social History Tobacco Use [...] encounter Miscellaneous Notes * Telephone Encounter - Maria Dolores Peer - 04/07/2020 9:19 AM EST Patient is calling in in regards to her Botox injection. She states she has received a letter from [employer] that they are denying this medication . There is a note in the chart stating that Botox has been approved . Please contact patient @ [phone] Maria Dolores Himanshu 04/07/20 0923 * Telephone Encounter - Charo Jolley RN - 04/07/2020 9:19 AM EST Please advise. Thank you! Charo Jolley RN 04/07/20 1018 * Telephone Encounter - Rand Yoder LPN - 04/07/2020 9:19 AM EST Jyoti's botox is approved through [employer] and she gets her botox from [facility]. Her botox might have gotten billed out. I can have the charge master take a look at her account. * Telephone Encounter - Charo Jolley RN - 04/07/2020 9:19 AM EST Ok, that would be great. Let her know if she needs to do anything. Thank you! Charo Jolley RN 04/22/20 [id number] * Telephone Encounter - Rand Yoder LPN - 04/07/2020 9:19 AM EST Spoke with Jade at [employer], and a prior authorization for botox is not required through them but is subject to medical review, and all pertinent medical records must be submitted with the claim for processing. I have resent the clinicals to her for dos 02/05/2020, the medical necessity letter was not enough to reprocess her claim. Spoke with leticia at [facility] and her botox will be delivered once he speaks with the patient regarding her copay and copay assistance. Rand Yoder LPN 04/28/20 1033 documented in this encounter Plan of Treatment Not on file documented as of this encounter Visit Diagnoses Not on filedocumented in this encounter Care Teams Vendor Management Associate Relationship Specialty Start Date End Date Pankaj Arevalo MD PCP - General 09/08/17 documented as of this encounter
[2025-02-19 09:41] LABS: Cholesterol 229 mg/dL (<=200); HDL Cholesterol 46 mg/dL (40-60); Triglycerides 388 mg/dL (<=150); VLDL CHOLESTEROL 77.6 mg/dL
== END 2025-02-19 08:39 | disposition home or self-care (01) ==
LOC: LAB 08:41
PROVIDERS: PCP Family Medicine; Visit Provider Family Medicine
DX: Z00.00 Encounter for general adult medical examination without abnormal findings (principal); E78.5 Hyperlipidemia, unspecified
CPT/HCPCS: 36415; 80061